=== PATIENT | male | born 1975 | race Caucasian/White ===

== ENCOUNTER 2024-04-19 21:16 | Inpatient (IN) | payer MEDICAID, SELFPAY ==
--- NOTE | 2024-04-19 | ECG_ITS ---
Test Reason : ams Blood Pressure : */* mmHG Vent. Rate : 97 BPM Atrial Rate : 97 BPM P-R Int : 116 ms QRS Dur : 92 ms QT Int : 390 ms P-R-T Axes : -10 -5 15 degrees QTcB Int : 495 ms Normal sinus rhythm Inferior infarct , age undetermined Cannot rule out Anterior infarct , age undetermined Abnormal ECG No previous ECGs available Referred By: Galina Jimenez Electronically Signed By: Jimi Gamez
--- NOTE | ~2024-04-19 | XR_ITS ---
CLINICAL HISTORY: abnormal lung sounds 1 view chest x-ray Comparison: None Findings: Portions of the exam are obscured by overlying material. No consolidation or effusion. Normal size heart. No acute fracture. IMPRESSION: 1. No acute findings. This document has been electronically signed by: Albert Danielle MD on 04/20/2024 06:09:25
--- NOTE | ~2024-04-19 | CT_ITS ---
CLINICAL HISTORY: trauma pt unable to hold still CT abdomen and pelvis without contrast Comparison: None Findings: Motion artifact present. The gallbladder and solid organs are unremarkable in appearance given the motion limitations. No radiopaque renal calculi are visualized. No hydronephrosis. No bowel obstruction, pneumoperitoneum, or pneumatosis. Pelvic contents unremarkable. No bladder wall thickening. The appendix is not confidently visualized on this exam. No acute fracture or dislocation injury identified. IMPRESSION: 1. Motion limited exam. No acute traumatic injury of the abdomen or pelvis visualized. This document has been electronically signed by: Malik Acuna MD on 04/19/2024 22:45:06
--- NOTE | ~2024-04-19 | CT_ITS ---
CLINICAL HISTORY: trauma pt unable to hold still CT chest without contrast Comparison: None Findings: Motion artifact present. The heart size is normal. The visualized thyroid and mediastinum are unremarkable. Minimal ground-glass opacities are identified at the right upper lobe with minimal to mild, patchy right basilar airspace opacities which appear somewhat nodular in configuration. There appear to be minimal nodular densities at the inferior aspect of the left lower lobe. No pneumothorax or pleural effusion. Evaluation of the lungs is degraded by motion artifact. No acute fracture injury identified. Evaluation of the ribs is limited by motion artifact. IMPRESSION: 1. Mildly motion limited exam. No acute traumatic injury of the chest identified. 2. Minimal right upper lobe ground-glass opacities present with minimal to mild, patchy right basilar airspace opacities which appears somewhat nodular in configuration. There also appear to be minimal nodular densities at the inferior aspect of the left lower lobe. These may represent sequela of infectious/inflammatory infiltrates, particularly at the bilateral lung bases. The right upper lobe ground-glass opacities may also represent sequela of infection or a subtle pulmonary contusion. This document has been electronically signed by: Malik cAuna MD on 04/19/2024 22:40:54
--- NOTE | ~2024-04-19 | US_ITS ---
CLINICAL HISTORY: arm swelling, drug use; eval dvt, abscess Venous duplex ultrasound bilateral upper extremity Comparison: None Findings: Accessible deep venous segments are fully compressible with normal Doppler color flow and spectral tracings. IMPRESSION: 1. Negative for bilateral upper extremity deep vein thrombosis. This document has been electronically signed by: Albert Danielle MD on 04/20/2024 17:52:14
--- NOTE | ~2024-04-19 | CT_ITS ---
CLINICAL HISTORY: trauma, pt unable to hold still CT cervical spine without contrast Comparison: None Findings: Mild motion artifact present. Nonspecific calcifications present within the bilateral ear soft tissues. No significant cervical spondylolisthesis identified. Multilevel degenerative disc disease/loss of intervertebral disc space height present at the cervical spine with extensive multilevel degenerative endplate changes. Multilevel bilateral degenerative facet arthropathy also present at the cervical spine. No acute fractures or dislocations. Impression: 1. No acute fracture or dislocation injury identified at the cervical spine. This document has been electronically signed by: Malik Acuna MD on 04/19/2024 22:18:59
--- NOTE | ~2024-04-19 | XR_ITS ---
CLINICAL HISTORY: right hand swelling 3 view right hand Comparison: None Findings: No acute fractures or dislocations identified. Evaluation of the digits is limited by finger flexion. No radiopaque foreign body. IMPRESSION: 1. Mildly limited examination related to finger flexion, limiting evaluation of the digits. No clear fracture or dislocation injury identified at the right hand. This document has been electronically signed by: Malik Acuna MD on 04/20/2024 01:22:30
--- NOTE | ~2024-04-19 | XR_ITS ---
EXAMINATION: XR CHEST CLINICAL INFORMATION: cough COMPARISON: Chest 04/12/2024 TECHNIQUE: Frontal view of the chest was obtained. FINDINGS: The lungs are hypoexpanded but clear. The heart size is enlarged. Pulmonary vascularity is normal. No gross bony abnormality seen. XR/XR chest 1V IMPRESSION: Hypoexpanded lungs without acute process. Mild cardiomegaly. Electronically signed by: Rubén Cardenas MD 04/24/2024 10:43 AM [facility] [place]
--- NOTE | ~2024-04-19 | CT_ITS ---
CLINICAL HISTORY: trauma CT head without contrast Comparison: None Findings: Mild motion artifact present. This mildly limits evaluation of the penning[place]-white matter differentiation on this study. No intracranial mass, midline shift, hydrocephalus, or acute hemorrhage. Visualized paranasal sinuses and mastoid air cells appear clear. No acute skull fracture. Impression: 1. Mildly motion limited exam. No acute intracranial abnormality or acute intracranial hemorrhage identified. This document has been electronically signed by: Malik Acuna MD on 04/19/2024 22:31:48
[2024-04-19 21:28] VITALS: O2SAT 86; BMI 32.5
[2024-04-19] MEDS: Haloperidol Lactate 5 MG/ML VIAL IVPUSH (21:30)
[2024-04-19] MEDS: LORazepam 2 MG/ML VIAL 4 MG IVPUSH (21:30)
[2024-04-19 21:37] LABS: MANUAL DIFF FLAG NO
[2024-04-19 21:39] VITALS: BP 129/108; PULSE 118; RESP 28; O2SAT 95
[2024-04-19 21:41] LABS: Basophils Absolute Auto 0.1 X10*3/uL (0.0-0.2); Basophils Percent Auto 0.2 % (0-2); Hematocrit 36.5 % (42.0-52.0); Hemoglobin 12.5 g/dl (14.0-18.0); Imm Gran Abs Auto 0.15 X10*3/uL (0.00-0.03); Imm Gran Pct Auto 0.7 % (0.0-0.4); Lymphocytes Absolute Auto 2.2 X10*3/uL (1.2-4.9); Lymphocytes Percent Auto 11.1 % (20-40); Mean Corpuscular HGB Conc 34.2 g/dl (31.0-36.0); Mean Corpuscular Hemoglobin 27.7 pg (27.0-33.0); Mean Corpuscular Volume 80.8 fL (80.0-98.0); Mean Platelet Volume 9.1 fL (9.4-12.4); Monocytes Absolute Auto 1.3 X10*3/uL (0.1-1.2); Monocytes Percent Auto 6.4 % (2-11); Neutrophils Absolute Auto 16.4 x10*3/uL (2.0-8.3); Neutrophils Percent Auto 81.6 % (45-73); Platelet Count 374 X10*3/uL (160-400); Red Blood Count 4.52 X10*6/uL (4.60-5.80); Red Cell Distribution Width 13.8 % (11.0-16.0); White Blood Count 20.1 X10*3/uL (4.8-10.8)
[2024-04-19 21:44] LABS: VBG Base Excess 5.3 mmol/L; VBG HCO3 30 mmol/L (22-26); VBG pCO2 48 mmHg; VBG pH 7.41 (7.32-7.43); VBG pO2 58 mmHg
[2024-04-19 21:47] LABS: Venous Blood Gas Refer to POC result
[2024-04-19 21:52] LABS: Ethanol 81 mg/dL
[2024-04-19 21:53] LABS: INTERNATIONAL NORM RATIO 1.3 (0.9-1.1); Prothrombin Time 14.8 SEC (10.9-12.4)
[2024-04-19 21:54] VITALS: TEMP 38.3
[2024-04-19 22:00] LABS: Lactic Acid 4.4 mmol/L (0.5-2.0)
[2024-04-19 22:02] LABS: Troponin-I High Sensitivity 21.5 ng/L (<3.5-35.0)
[2024-04-19] MEDS: cefTRIAXone sodium 2 GM VIAL IVPUSH (22:05)
[2024-04-19] MEDS: Lactated Ringers 1,000 ML 999 ML IV (22:06)
[2024-04-19] MEDS: Acetaminophen Supp 325 MG SUPP.RECT 975 MG PR (22:06)
[2024-04-19 22:10] LABS: Alanine Aminotransferase 68 U/L (0-40); Albumin Level 3.9 g/dL (3.5-5.0); Alkaline Phosphatase 114 U/L (39-117); Anion Gap 18 (12-20); Aspartate Amino Transferase 211 U/L (5-37); Bilirubin Total 0.9 mg/dL (0.0-1.0); Blood Urea Nitrogen 14 mg/dL (9-16); Calcium 8.4 mg/dL (8.4-10.2); Carbon Dioxide 26 mmol/L (22-29); Chloride 94 mmol/L (96-108); Creatinine Clr Calc Pharmacy 140.2; Estimated Glomerular Filt Rate > 60; Glucose Random 67 mg/dL (60-115); Sodium 135 mmol/L (135-145); Total Protein 7.9 g/dL (6.5-8.0)
[2024-04-19 22:18] LABS: Magnesium 2.2 mg/dL (1.6-2.6)
[2024-04-19 22:22] VITALS: PULSE 99; RESP 20; O2SAT 87
[2024-04-19 22:30] VITALS: BP 112/57; PULSE 95; RESP 19; O2SAT 95
[2024-04-19 22:41] LABS: Influenza A PCR NEGATIVE (Negative); Influenza B PCR NEGATIVE (Negative); Resp Syncy Virus RNA Qual PCR NEGATIVE (Negative); SARS COV2 PCR INHOUSE NEGATIVE (Negative)
[2024-04-19 22:45] LABS: Amphetamine Screen Urine POSITIVE (Not Detect); Barbiturates, Urine Not Detected (Not Detect); Benzodiazepines Screen Urine Not Detected (Not Detect); Buprenorphine Scr Positive (Not Detect); Cannabinoid Screen Urine Not Detected (Not Detect); Cocaine Screen Urine POSITIVE (Not Detect); Fentanyl, urine POSITIVE (Not Detect); Methadone Screen, Urine Not Detected (Not Detect); Opiate Screen Urine POSITIVE (Not Detect); Oxycodone Screen Urine Not Detected (Not Detect); Phencyclidine Screen Urine Not Detected (Not Detect)
--- NOTE | 2024-04-19 23:00 | PC.NURSE ---
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
--- NOTE | 2024-04-19 23:00 | PC.NURSE ---
this rn made arthur oliver and chargeback analyst aware of noted strider per oliver no new orders regarding strider chargeback analyst discussed different available options for treatment. per oliver no new orders
[2024-04-19] MEDS: Doxycycline Hyclate 100 MG in 0.9 % Sodium Chloride 250 ML 166.67 MG IV (23:03)
[2024-04-19 23:33] VITALS: BP 104/48; PULSE 99; RESP 20; O2SAT 96
[2024-04-19 23:36] LABS: Reflex Lactate? Lactic Acid Added
[2024-04-19] MEDS: Potassium Chloride/H20 10 MEQ/100 ML PIGGYBACK 100 MEQ IV (23:55)
[2024-04-19] MEDS: 0.9 % Sodium Chloride 1,000 ML 999 ML IV (23:56)
[2024-04-20] VITALS (10 sets, daily range): BP systolic 113–153; BP diastolic 51–71; PULSE 91–96; RESP 17–30; TEMP 36.7–38.2; O2SAT 92–97
[2024-04-20 00:29] LABS: ~Lactic Acid-LAB USE ONLY 1.9 mmol/L (0.5-2.0)
[2024-04-20] MEDS: Ketorolac Tromethamine 15 MG/ML VIAL IVPUSH (00:37)
[2024-04-20] MEDS: Potassium Chloride/H20 10 MEQ/100 ML PIGGYBACK 100 MEQ IV ×3 (00:47→03:48)
--- NOTE | 2024-04-20 00:50 | ED.AMS ---
HPI - Altered Mental Status General Chief Complaint: Altered Mental Status Stated Complaint: ETOH, cocaine use, diff breathing Time Seen by Provider: 04/19/24 21:39 Source: patient Limitations: other (Intoxication) History of Present Illness ED Provider: Galina Jimenez PA-C HPI narrative: 48-year-old male with a history of alcohol abuse, polysubstance abuse, presents with altered mental status. PD found the patient barefoot wearing shorts and a sweater in the parking lot of a variety sore. The patient relayed to PD that he has been unconscious for 2 days and that he just ?woke up?. He admits to relapsing on cocaine and alcohol. Shortly after EMS arrived, the patient became extremely agitated, they were not able to get stable vitals on the patient they are concerned that he may be hypoxic. History limited as the patient is combative and agitated at this time. Related Data Allergies Allergy/AdvReac Type Severity Reaction Status Date / Time No Known Allergies Allergy Verified 04/19/24 21:34 Review of Systems Review of Systems: Unable to obtain as the patient is altered Yes all other systems are reviewed and are negative [facility] Past Medical History Attestation statement: The following information was validated with the patient. Social History Social History Advance Directives: No Advance Directives Information Provided: No Physical Exam ED Vital Signs: Vital Signs - 24 hr 04/19/24 21:39 04/19/24 21:54 04/19/24 22:22 Temperature 100.9 F H Pulse Rate 118 H 99 Respiratory Rate 28 H 20 Blood Pressure 129/108 H Pulse Oximetry 95 87 L Oxygen Delivery Method Room Air Room Air Oxygen Flow Rate 04/19/24 22:30 04/19/24 23:33 04/20/24 00:31 Temperature 100.7 F H Pulse Rate 95 99 Respiratory Rate 19 20 Blood Pressure 112/57 L 104/48 L Pulse Oximetry 95 96 Oxygen Delivery Method Oxymask Oxymask Oxygen Flow Rate 2 2 04/20/24 03:39 Temperature Pulse Rate 92 Respiratory Rate 18 Blood Pressure 126/51 L Pulse Oximetry 95 Oxygen Delivery Method Room Air Oxygen Flow Rate BMI result Body Mass Index 32.5 Const Other: Awake Orientation/consciousness: oriented to person Resp Other: Tachypneic, unable to participate in a Respiratory exam due to his agitation Cardio Other: Normal peripheral perfusion Skin Other: Bruising and abrasions noted all over his body, 1 over the sternum that is prominent, 1 right lower flank. Neuro General: oriented to person, no focal motor deficits and CN's II-XI intact bilaterally Extrem Other: Moving all extremities independently, his upper extremities feel tense , but he is perfusing and warm Psych Other: Agitated, combative Course Reevaluation(s) Reevaluation #1: sepsis identified, the patient was tachycardic, he is febrile, we will be giving IV fluid therapy and starting empiric ceftriaxone, blood cultures and lactic already obtained Time: 21:31 Reevaluation #2: Evidence of pneumonia on CT scan, we will treat with doxy instead of azithromycin given QT prolongation..... Potassium low we will order 40 mEq IV Reevaluation #3: Patient is starting to become agitated again, we are concerned that he may be starting to withdraw from alcohol, we will be giving 260 mg of phenobarbital IM........ Repeating CPK at this time, giving additional IV fluid Additional Reevaluation(s): CPK improved Medications Administered Discontinued Medications Generic Name Dose Route Start Last Admin Trade Name Freq PRN Reason Stop Dose Admin Acetaminophen 975 mg 04/19/24 21:53 04/19/24 22:06 Acetaminophen Supp 325 Mg Supp.Rect OK 04/19/24 21:54 975 mg ONCE ONE Administration Ceftriaxone Sodium 2 gm 04/19/24 21:53 04/19/24 22:05 Ceftriaxone Sodium 2 Gm Vial IVPUSH 04/19/24 21:54 2 gm ONCE ONE Administration Haloperidol Lactate 5 mg 04/19/24 21:48 04/19/24 21:30 Haloperidol Lactate 5 Mg/Ml Vial IVPUSH 04/19/24 21:49 5 mg ONCE ONE Administration Lactated Ringer's 1,000 mls @ 999 mls/hr 04/19/24 22:00 04/20/24 00:01 Lr IV 04/19/24 23:00 Infused .Q1H1M MARIANN Infusion Doxycycline Hyclate 100 mg/ 250 mls @ 166.67 mls/hr 04/19/24 22:46 04/20/24 00:40 Sodium Chloride IV 04/20/24 00:15 Infused ONCE ONE Infusion Potassium Chloride 10 meq in 100 mls @ 100 mls/hr 04/19/24 23:00 04/20/24 03:48 Potassium Chloride/H20 IV 04/20/24 02:59 100 mls/hr Q1H MARIANN Administration Sodium Chloride 1,000 mls @ 999 mls/hr 04/19/24 23:00 04/20/24 03:07 Ns IV 04/20/24 00:00 Infused .Q1H1M MARIANN Infusion Sodium Chloride 1,000 mls @ 999 mls/hr 04/20/24 03:30 04/20/24 03:30 Ns IV 04/20/24 04:30 999 mls/hr .Q1H1M MARIANN Administration Ketorolac Tromethamine 15 mg 04/20/24 00:25 04/20/24 00:37 Ketorolac Tromethamine 15 Mg/Ml Vial IVPUSH 04/20/24 00:26 15 mg ONCE ONE Administration Lorazepam 4 mg 04/19/24 21:48 04/19/24 21:30 Lorazepam 2 Mg/Ml Vial IVPUSH 04/19/24 21:49 4 mg ONCE ONE Administration Phenobarbital Sodium 260 mg 04/20/24 03:23 04/20/24 03:27 Phenobarbital Sodium 130 Mg/Ml Vial IM 04/20/24 03:24 260 mg ONCE ONE Administration Medical Decision Making Medical Decision Making MDM Narrative: 48-year-old male with a history of alcohol abuse, polysubstance abuse, presents with altered mental status. PD found the patient barefoot wearing shorts and a sweater in the parking lot of a variety sore. The patient relayed to PD that he has been unconscious for 2 days and that he just ?woke up?. He admits to relapsing on cocaine and alcohol. Shortly after EMS arrived, the patient became extremely agitated, they were not able to get stable vitals on the patient they are concerned that he may be hypoxic. History limited as the patient is combative and agitated at this time. Problem: Polysubstance abuse, alcohol abuse History: Per PD and EMS I have considered the following differential diagnoses: Alcohol withdrawal, toxic ingestion, rhabdomyolysis, sepsis, intracranial hemorrhage, cervical spine injury, intra-abdominal trauma, intrathoracic trauma, pneumonia Plan: The patient is certainly appears intoxicated, he admits to bingeing on alcohol and cocaine, alcohol withdrawal is certainly on the differential, we will place a CIWA scale. Once we established IV access, we will be medicating with 2 mg of Ativan, so we can proceed with the his initial assessment. The patient was very hot to touch, we obtained a rectal temp he is febrile, we are concerned for sepsis, we will be giving IV fluid therapy, starting empiric ceftriaxone, obtaining blood cultures and lactic acid. We will also screen a urinalysis, chest x-ray and viral panel. I am also worried for rhabdomyolysis, the patient states he has been unconscious for 2 days, presumably down on the ground, potentially outside given all the bruising and abrasions we are noting, we will add on a CPK. The patient will be conley scanned, unclear if he sustained a considerable trauma, obtaining imaging of the brain, cervical spine chest and abdomen. Again as I already stated, we are concerned for toxic ingestion, we will be obtaining a drug screen and ethanol. I have independently reviewed the following tests: Labs: Leukocytosis noted with left shift, not anemic, potassium low at 3, 1st lactic acid 4.4, the 2nd is 1.9, transaminitis noted, CPK 5232, repeat CPK 2664, 1st troponin 21.5, viral panel negative, U tox positive for opiates, buprenorphine, fentanyl, amphetamine, cocaine ethanol 81 EKG: Normal sinus rhythm, rate of 97, evidence of old infarct in inferior leads, QTC 495 CT brain: indings: Mild motion artifact present. This mildly limits evaluation of the penning[place]-white matter differentiation on this study. No intracranial mass, midline shift, hydrocephalus, or acute hemorrhage. Visualized paranasal sinuses and mastoid air cells appear clear. No acute skull fracture. Impression: 1. Mildly motion limited exam. No acute intracranial abnormality or acute intracranial hemorrhage identified. This document has been electronically signed by: Malik Acuna MD on 04/19/2024 22:31:48 CT cervical spine: Findings: Mild motion artifact present. Nonspecific calcifications present within the bilateral ear soft tissues. No significant cervical spondylolisthesis identified. Multilevel degenerative disc disease/loss of intervertebral disc space height present at the cervical spine with extensive multilevel degenerative endplate changes. Multilevel bilateral degenerative facet arthropathy also present at the cervical spine. No acute fractures or dislocations. Impression: 1. No acute fracture or dislocation injury identified at the cervical spine. This document has been electronically signed by: Malik Acuna MD on 04/19/2024 22:18:59 CT chest: MPRESSION: 1. Mildly motion limited exam. No acute traumatic injury of the chest identified. 2. Minimal right upper lobe ground-glass opacities present with minimal to mild, patchy right basilar airspace opacities which appears somewhat nodular in configuration. There also appear to be minimal nodular densities at the inferior aspect of the left lower lobe. These may represent sequela of infectious/inflammatory infiltrates, particularly at the bilateral lung bases. The right upper lobe ground-glass opacities may also represent sequela of infection or a subtle pulmonary contusion. This document has been electronically signed by: Malik Acuna MD on 04/19/2024 22:40:54 CT abdomen and pelvis:IMPRESSION: 1. Motion limited exam. No acute traumatic injury of the abdomen or pelvis visualized. X-ray right hand:IMPRESSION: 1. Mildly limited examination related to finger flexion, limiting evaluation of the digits. No clear fracture or dislocation injury identified at the right hand. Lab Data 04/19/24 21:31 04/19/24 21:31 Labs: Lab Results 04/19/24 04/19/24 04/19/24 Range/Units 21:31 21:40 22:01 WBC 20.1 H (4.8-10.8) X10*3/uL RBC 4.52 L (4.60-5.80) X10*6/uL Hgb 12.5 L (14.0-18.0) g/dl Hct 36.5 L (42.0-52.0) % MCV 80.8 (80.0-98.0) fL MCH 27.7 (27.0-33.0) pg MCHC 34.2 (31.0-36.0) g/dl RDW 13.8 (11.0-16.0) % Plt Count 374 (160-400) X10*3/uL MPV 9.1 L (9.4-12.4) fL Immature Gran % (Auto) 0.7 H (0.0-0.4) % Neut % (Auto) 81.6 H (45-73) % Lymph % (Auto) 11.1 L (20-40) % [place] % (Auto) 6.4 (2-11) % Eos % (Auto) 0.0 (0-4) % Baso % (Auto) 0.2 (0-2) % Lymph # (Auto) 2.2 (1.2-4.9) X10*3/uL [place] # (Auto) 1.3 H (0.1-1.2) X10*3/uL Eos # (Auto) 0.0 (0.0-0.4) X10*3/uL Baso # (Auto) 0.1 (0.0-0.2) X10*3/uL Abs Immat Gran (auto) 0.15 H (0.00-0.03) X10*3/uL Absolute Neuts (auto) 16.4 H (2.0-8.3) x10*3/uL Absolute Nucleated RBC 0.000 (0.0-0.012) X10*3/uL Nucleated RBC % (auto) 0.0 (0.0-0.2) /100WBC PT 14.8 H (10.9-12.4) SEC INR 1.3 H (0.9-1.1) VBG pH 7.41 (7.32-7.43) VBG pCO2 48 mmHg VBG pO2 58 mmHg VBG HCO3 30 H (22-26) mmol/L VBG O2 Saturation 86.0 % VBG Base Excess 5.3 mmol/L Sodium 135 (135-145) mmol/L Potassium 3.0 L (3.3-5.1) mmol/L Chloride 94 L (96-108) mmol/L Carbon Dioxide 26 (22-29) mmol/L Anion Gap 18 (12-20) BUN 14 (9-16) mg/dL Creatinine 0.75 (0.5-1.4) mg/dL Estim Creat Clear Calc 140.2 Estimated GFR > 60 Random Glucose 67 (60-115) mg/dL Lactic Acid 4.4 H* (0.5-2.0) mmol/L Lactic Acid F/U @ 2Hr (0.5-2.0) mmol/L Calcium 8.4 (8.4-10.2) mg/dL Magnesium 2.2 (1.6-2.6) mg/dL Total Bilirubin 0.9 (0.0-1.0) mg/dL AST 211 H (5-37) U/L ALT 68 H (0-40) U/L Alkaline Phosphatase 114 (39-117) U/L Total Creatine Kinase 5232 H (38-174) U/L Troponin I High Sens 21.5 (<3.5-35.0) ng/L Total Protein 7.9 (6.5-8.0) g/dL Albumin 3.9 (3.5-5.0) g/dL Urine Opiates Screen (Not Detect) Ur Buprenorphine Scrn (Not Detect) ng/mL Ur Oxycodone Screen (Not Detect) ng/mL Urine Methadone Screen (Not Detect) ng/mL Urine Fentanyl Screen (Not Detect) Ur Barbiturates Screen (Not Detect) Ur Phencyclidine Scrn (Not Detect) Ur Amphetamines Screen (Not Detect) U Benzodiazepines Scrn (Not Detect) Urine Cocaine Screen (Not Detect) U Marijuana (THC) Screen (Not Detect) Ethyl Alcohol 81 mg/dL Influenza Type A (PCR) NEGATIVE (Negative) Influenza Type B (PCR) NEGATIVE (Negative) RSV RNA Qual (PCR) NEGATIVE (Negative) SARS-CoV-2 RNA (RT-PCR) NEGATIVE (Negative) 04/19/24 04/20/24 04/20/24 Range/Units 22:27 00:12 03:34 WBC (4.8-10.8) X10*3/uL RBC (4.60-5.80) X10*6/uL Hgb (14.0-18.0) g/dl Hct (42.0-52.0) % MCV (80.0-98.0) fL MCH (27.0-33.0) pg MCHC (31.0-36.0) g/dl RDW (11.0-16.0) % Plt Count (160-400) X10*3/uL MPV (9.4-12.4) fL Immature Gran % (Auto) (0.0-0.4) % Neut % (Auto) (45-73) % Lymph % (Auto) (20-40) % [place] % (Auto) (2-11) % Eos % (Auto) (0-4) % Baso % (Auto) (0-2) % Lymph # (Auto) (1.2-4.9) X10*3/uL [place] # (Auto) (0.1-1.2) X10*3/uL Eos # (Auto) (0.0-0.4) X10*3/uL Baso # (Auto) (0.0-0.2) X10*3/uL Abs Immat Gran (auto) (0.00-0.03) X10*3/uL Absolute Neuts (auto) (2.0-8.3) x10*3/uL Absolute Nucleated RBC (0.0-0.012) X10*3/uL Nucleated RBC % (auto) (0.0-0.2) /100WBC PT (10.9-12.4) SEC INR (0.9-1.1) VBG pH (7.32-7.43) VBG pCO2 mmHg VBG pO2 mmHg VBG HCO3 (22-26) mmol/L VBG O2 Saturation % VBG Base Excess mmol/L Sodium (135-145) mmol/L Potassium (3.3-5.1) mmol/L Chloride (96-108) mmol/L Carbon Dioxide (22-29) mmol/L Anion Gap (12-20) BUN (9-16) mg/dL Creatinine (0.5-1.4) mg/dL Estim Creat Clear Calc Estimated GFR Random Glucose (60-115) mg/dL Lactic Acid (0.5-2.0) mmol/L Lactic Acid F/U @ 2Hr 1.9 (0.5-2.0) mmol/L Calcium (8.4-10.2) mg/dL Magnesium (1.6-2.6) mg/dL Total Bilirubin (0.0-1.0) mg/dL AST (5-37) U/L ALT (0-40) U/L Alkaline Phosphatase (39-117) U/L Total Creatine Kinase 2664 H (38-174) U/L Troponin I High Sens (<3.5-35.0) ng/L Total Protein (6.5-8.0) g/dL Albumin (3.5-5.0) g/dL Urine Opiates Screen POSITIVE H (Not Detect) Ur Buprenorphine Scrn Positive H (Not Detect) ng/mL Ur Oxycodone Screen Not Detected (Not Detect) ng/mL Urine Methadone Screen Not Detected (Not Detect) ng/mL Urine Fentanyl Screen POSITIVE H (Not Detect) Ur Barbiturates Screen Not Detected (Not Detect) Ur Phencyclidine Scrn Not Detected (Not Detect) Ur Amphetamines Screen POSITIVE H (Not Detect) U Benzodiazepines Scrn Not Detected (Not Detect) Urine Cocaine Screen POSITIVE H (Not Detect) U Marijuana (THC) Screen Not Detected (Not Detect) Ethyl Alcohol mg/dL Influenza Type A (PCR) (Negative) Influenza Type B (PCR) (Negative) RSV RNA Qual (PCR) (Negative) SARS-CoV-2 RNA (RT-PCR) (Negative) Procedures Procedure Narrative Procedure Narrative: Ultrasound-guided IV 18 gauge 1-3/4 inch bilateral IVs placed in either extremity, each with adequate blood return, each flushes well each secured with Tegaderm Critical Care Time Critical Care Time Critical Care Time: Yes Total Critical Care Time: 30 Attestation: I Galina Jimenez PA-C have personally performed critical care time in the way of 30 minutes, not including procedures and line placement Discharge Plan Discharge Clinical Impression: Polysubstance abuse, Sepsis, Alcohol withdrawal, Rhabdomyolysis, Pneumonia, Acute hypokalemia Patient Disposition: Admitted As Inpatient Print Language: [place]
--- OUTSIDE RECORDS SUMMARY | 2024-04-20 01:31 | XMS_ITS | Patient Health Record ---
Author Organization [facility], Address [address] [place] [address] Care Team Providers Care Teacher Of The Handicapped Name Role Phone [facility] Roy[facility], [facility] Unavaila ble Unavailable Denton Keller Unavailable Unavailable Allergies No Known Allergies Reason For Referral Reason Umbilical Hernia Not Reducible with Significant Abdominal Distension, Gastroparesis - Referral to GI Diagnosis 1 Umbilical hernia wit hout obstruction or gangrene (K42.9) Referring Provider First Name Denton Referring Provider Last Name Referred Provider Specialty Gastroentero logy General Notes [facility], [address], [place] [address] [facility], P [phone] F [phone] Referral Priority Routine Medications Medication SIG (Take, Route, Fr equency, Duration) Notes Start Date End Date Status SEROquel 200 MG 1 tablet Orally Once a day Active Lexapro 20 MG 1 tablet Orally Once a day Active Suboxone Active cloNIDine HCl Active Caplyta Active Glycerin (Laxative) Active Vyvanse Active Social History Tobacco Use: Social History Observation Description Date Details (start date - stop date) Former Smoker NA - NA Sex Assigned At : Social History Observation Description Sex Assigned At Male Tobacco Use/Smoking Question Answer Notes Are you a former smoker Alcohol Screen (Audit-C) Question Answer Notes Did you have a drink containing alcohol in the p ast year? Yes Tobacco use other than smoking: Question Answer Notes Are you an other tobacco user? Yes Problems Problem Type SNOMED Code ICD Code Onset Dates Problem Status W/U Status Risk Notes Problem Exposure to communicable disease (465403196) Contact with and (suspected) exposure to other viral communicable diseases (Z20.828) Active confirmed Problem Constipation (39013894) Constipation (K59.00) Active confirmed Vital Signs Heart Rate 90 /min 09/04/2023 Temperature 98.2 degrees Fahrenheit 09/04/2023 Respiratory Rate 18 /min 09/04/2023 Oximetry 98 % 09/04/2023 Blood pressure diastolic 88 mm Hg 09/04/2023 Height 67 in 09/04/2023 Blood pressure systolic 130 mm Hg 09/04/2023 Weight 199.0 lbs 09/04/2023 BMI 31.16 kg/m2 09/04/2023 Encounters Encounter Location Date Provider Diagnosis [facility] [place] [address] [place] [address] 09/04/2023 Denton Keller Constipation K59.00 and Umbilical hernia without obstruction or gangrene K42.9 Assessments Encounter Date Diagnosis (ICD Code) Assessment Notes Treatment Notes Treatment Clinical Notes Section Notes 09/04/2023 Umbilical hernia without obstruction or gangrene (ICD-10 - K42.9) Umbilical hernia Visible with valsalva maneuver not reducible Referral to GI for evaluation/pote ntial surgical correction Follow up with Gi 09/04/2023 Constipation (ICD-10 - K59.00) Constipation with bloating Likely related to opiod (methadone) use Has tried OTC medications including suppository, stool softeners, bowel stimulants with minimal improvement Tx with linzess Due to bloating, sending for xray to rule out bowel obstruction Follow up if limited improvement 09/04/2023 Other During this encounter, I dedicated 22 minutes to direct ktvs-wj-pbfa and kas-otmf-vy-face time with the patient. I invested time in preparatory tasks, including reviewing the patient's history and checking electronic pharmacy inputs for available medications. I conducted a thorough examination and provided counselling and education to the patient. I managed medication, test, and procedure orders. I ensured accurate documentation of all clinical information in the electronic medical record. Plan Of Treatment Pending Test Test Name Order Date Chest X-ray: 2 views (PA and Lateral) SARS - CoV - 2 Antigen 07/10/2021 Cepheid 4 Plex 01/29/2022 Insurance Providers Payer Name Payer Address Payer Phone Subscriber Number Group Number Insured Name Patient Relationship to Insured Coverage Start Date Coverage End Date Medicaid of [place] [address] [place] [address] [id number] Vicalda Abiodun Self - patient is the insured Medical (General) History Medical History History ICD Code asthma: No Cancer: No DEPRESSION: Yes Diabetes: No high blood pressure: No kidney disease: No thyroid disease: No Have you bloodwork done in the past 12 m [facility]?: Yes Have you had a physical in the past 12 m [facility]?: Yes Surgical History: Left shoulder right bi ceps left hip
--- OUTSIDE RECORDS SUMMARY | 2024-04-20 01:32 | XMS_ITS ---
Author Organization [facility] [place], Address [address] [place] [address] Care Team Providers Care Territory Account Manager Name Role Phone Denton Keller Unavailable Unavailable Allergies No Known Allergies Reason For Referral Reason Umbilical Hernia Not Reducible with Significant Abdominal Distension, Gastroparesis - Referral to GI Diagnosis 1 Umbilical hernia wit hout obstruction or gangrene (K42.9) Referring Provider First Name Denton Referring Provider Last Name Referred Provider Specialty Gastroentero logy General Notes [facility], [address], [place] [address] [facility], P [phone] F [phone] Referral Priority Routine REASON FOR VISIT Stomach pain, VOMOTING Medications Medication SIG (Take, Route, Fr equency, Duration) Notes Start Date End Date Status SEROquel 200 MG 1 tablet Orally Once a day Active Lexapro 20 MG 1 tablet Orally Once a day Active linaCLOtide 145 MCG 1 capsule at least 3 0 minutes before the first meal of the day on an empty stomach Orally Once a day for 30 days 09/04/2023 10/04/2023 Active Suboxone Active cloNIDine HCl Active Caplyta [...] Problem Status W/U Status Risk Notes Problem Constipation (30454970) Constipation (K59.00) Active confirmed Vital Signs Temperature 98.2 degrees Fahrenheit 09/04/19 24 Heart Rate 90 /min 09/04/2023 Blood pressure systolic 130 mm Hg 09/04/19 24 Blood pressure diastolic 88 mm Hg 024 Height 67 in 09/04/2023 Weight 199.0 lbs 09/04/2023 BMI 31.16 kg/m2 09/04/2023 Respiratory Rate 18 /min 09/04/2023 Oximetry 98 % 09/04/2023 Encounters Encounter Location Date Provider Diagnosis [facility] [address] [address] 09/04/2023 Denton Keller Constipation K59.00 and Umbilical hernia without obstruction or gangrene K42.9 Assessments Encounter Date Diagnosis (ICD Code) Assessment Notes Treatment Notes Treatment Clinical Notes Section Notes 09/04/2023 Constipation (ICD-10 - K59.00) Constipation with bloating Likely related to opiod (methadone) use Has tried OTC medications including suppository, stool softeners, bowel stimulants with minimal improvement Tx with linzess Due to bloating, sending for xray to rule out bowel obstruction Follow up if limited improvement 09/04/2023 Umbilical hernia without obstruction or gangrene (ICD-10 - K42.9) Umbilical hernia Visible with valsalva maneuver not reducible Referral to GI for evaluation/pote ntial surgical correction Follow up with Gi 09/04/2023 Other During this encounter, I dedicated 22 minutes to direct nwce-uh-jesw and qkz-pcmw-vg-face time with the patient. I invested time in preparatory tasks, including reviewing the patient's history and checking electronic pharmacy inputs for available medications. I conducted a thorough examination and provided counselling and education to the patient. I managed medication, test, and procedure orders. I ensured accurate documentation of all clinical information in the electronic medical record. Plan Of Treatment Medication Medication Name Sig Start Date Stop Date Notes linaCLOtide 145 MCG 1 capsule at least 3 0 minutes before the first meal of the day on an empty stomach Orally Once a day for 30 days 09/04/2023 10/04/2023 Treatment Notes Assessment Notes Constipation Constipation with bloating Likely related to opiod (methadone) use Has tried OTC medications including suppository, stool softeners, bowel stimulants with minimal improvement Tx with linzess Due to bloating, sending for xray to rule out bowel obstruction Follow up if limited improvement Umbilical hernia without obs truction or gangrene Umbilical hernia Visible with valsalva maneuver not reducible Referral to GI for evaluation/potential surgical correction Follow up with Gi Referrals Referral Date Details 09/04/2023 09/04/2023, Umbilica l Hernia Not Reducible with Significant Abdominal Distension, Gastroparesis - Referral to GI Next Appt Details Follow Up: 1 Week, Reason: x ray results, constipation follow up Progress Notes * [place] DIAMONDMisaOB:1975 ( 48 yo M)Acc No.[id number]:09/04/2023 Progress Notes Patient:?Abiodun DIAMOND Provider:?Denton Keller APRN :1975???Age:48 Y???Sex:Male Pieter e:09/04/2023 Address:[address] [place] [address] Subjective: * Chief Complaints: * ???1. Stomach pain, VOMOTING . * HPI: ???Asthma:? Having sharp abdominal pain with regurgitation Abdominal bloating after meals? Used glycerin suppository about 5 times daily Reports significant constipatoin with suboxone Has been to hospital several times in past few weeks/months Colonoscopy about 1 year ago that was normal - normal Reports going 1 month without pooping in recent past Last CT of abdomen done a few months ago Abdominal hernia x 1 to 2 years. ?Asthma Form?Coughing, wheezing, shortness of breath or tightness in the chest during the day?This year ???Depression Screening:?PHQ-9?Little interest or pleasure in doing things?Not at all ?Trouble falling or staying asleep, or sleeping too much?Not at all ?Poor appetite or overeating?More than half the days ?Trouble concentrating on things, such as reading the newspaper or watching television?Not at all ?Moving or speaking so slowly that other people could have noticed; or the opposite, being so fidgety or restless that you have been moving around a lot more than usual?Not at all ?Thoughts that you would be better off or of hurting yourself in some way?Not at all ?Interpretation?Minimal Depression score 0-4, no action ???Comprehensive health Assessment:?[facility] Comprehensive Health Assessment?Race?Martial Status?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 Sex?Male * ROS:?General/Constitutional:?Fever?Yes.? * Medical History:?asthma: No, Cancer: No, DEPRESSION: Yes, Diabetes: No, high blood pressure: No, kidney disease: No, thyroid disease: No, Have you bloodwork done in the past 12 months?: Yes, Have you had a physical in the past 12 months?: Yes, Surgical History: Left shoulder right biceps left hip. * Family History:?Father: Reed richey,High Blood Pressure.?Mother: Alive.?Paternal Grand Father: Alive.?Paternal Grand Mother: .?Maternal Grand Father: .?Maternal Grand Mother: .?Siblings: Alive.?Children: Alive.? * Social History:?Tobacco Use:?Tobacco Use/Smoking?Are you a?former smoker ?Tobacco use other than smoking?Are you an other tobacco user??Yes ???Drugs/Alcohol:?Alcohol Screen (Audit-C)?Did you have a drink containing alcohol in the past year??Yes * Medications:?Taking Glycerin (Laxative) , Taking cloNIDine HCl , Taking Caplyta , Taking Vyvanse , Taking SEROquel 200 MG Tablet 1 tablet Orally Once a day , Taking Lexapro 20 MG Tablet 1 tablet Orally Once a day , Taking Suboxone , Discontinued KlonoPIN , Medication List reviewed and reconciled with the patient * Allergies:?N.K.D.A. Objective: * Vitals:?Temp: 98.2 F, HR: 90 /min, BP: 130/88 mm Hg, Ht: 67 in, Wt: 199.0 lbs, BMI: 31.16 Index, RR: 18, Oxygen sat %: 98 %. * Examination: ???General Examination: ?GENERAL APPEARANCE:?Alert, well-developed, well-nourished, non-toxic appearing, in no acute distress.?ABDOMEN:?Umbilical hernia above umbilicus appx 4 inch diameter ?, bowel sounds present, distended, without ascites, no rebound tenderness, no organomegaly,?.? Assessment: * Assessment: 1.?Umbilical hernia without obstruction or gangrene - K42.9???2.?Constipation - K59.00 (Primary)??? Plan: * Treatment: 2.?Umbilical hernia without obstruction or gangrene? Notes: Umbilical hernia Visible with valsalva maneuver not reducible Referral to GI for evaluation/potential surgical correction Follow up with Gi? Referral To:Gastroenterology ?Reason:Umbilical Hernia Not Reducible with Significant Abdominal Distension, Gastroparesis - Referral to GI 3.?Others? Clinical Notes: During this encounter, I dedicated 22 minutes to direct kihx-sw-lmra and gis-tmpz-mm-face time with the patient. I invested time in preparatory tasks, including reviewing the patient's history and checking electronic pharmacy inputs for available medications. I conducted a thorough examination and provided counselling and education to the patient. I managed medication, test, and procedure orders. I ensured accurate documentation of all clinical information in the electronic medical record.?? * Procedure Codes:?96012 BRIEF EMOTIONAL/BEHAV ASSMT * Follow Up:?1 Week (Reason: x ray results, constipation follow up) Care Plan: * Problems:? * Billing Information: * Visit Code:? 89007 Office Visit, New Patient. Modifiers: 25 * Procedure Codes:? 82476 BRIEF EMOTIONAL/BEHAV ASSMT. Care Plan Details* * Sign off status: Completed true * Provider:Rosalino Keller APRN Date:? 024 Generated for Raul méndez/Yannick/eTransmitting on:?04/20/2024 01:31 AM EST History and Physical Notes * HPI (History of Present Illness) Category Sub-Category Detail Notes Category Not es Asthma Asthma Form Coughing, wheezi ng, shortness of breath or tightness in the chest during the day: This year Depression Screening PHQ-9 Little inte rest or pleasure in doing things: Not at all Trouble falling or staying asleep, or sl eeping too much: Not at all Poor appetite or overeating: More than h fci the days Trouble concentrating on thi ngs, such as reading the newspaper or watching television: Not at all Moving or speaking so slowly that other people could have noticed; or the opposite, being so fidgety or restless that you have been moving around a lot more than usual: Not at all Thoughts that you would be b jp off or of hurting yourself in some way: Not at all Interpretation: Minimal Depression score 0-4, no action Comprehensive health Assessment [facility] prehensive Health Assessment Race: Martial Status: 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 Language Preference: Luxembourger Drug Abuse: Prior Use Sex: Male Examination Category Sub-Category Detail Notes Category Not es General Examination GENERAL APPEARANCE: Alert, w ell-developed, well-nourished, non-toxic appearing, in no acute distress ABDOMEN: Umbilical hernia abo ve umbilicus appx 4 inch diameter , bowel sounds present, distended, without ascites, no rebound tenderness, no organomegaly, Consultation Request Notes Referral Date Referring Provider Referred Provider Not es 09/04/2023 Denton Keller , Umbilical Herni a Not Reducible with Significant Abdominal Distension, Gastroparesis - Referral to GI
--- OUTSIDE RECORDS SUMMARY | 2024-04-20 01:32 | XMS_ITS ---
Author Organization [facility] [place], Address [address] [place] [address] Care Team Providers Care Sas Programmer Analyst Name Role Phone [facility] Unavaila ble Unavailable REASON FOR VISIT 1 week f/u Social History Sex Assigned At : Social History Observation Description Sex Assigned At Male Encounters Encounter Location Date Provider Diagnosis [facility]gent [facility] [facility] [place] [address] 09/11/2023 [facility] Swapnilkaiden Plan Of Treatment No Information Progress Notes * Mari DIAMONDOB:1975 ( 48 yo M)Acc No.[id number]:09/11/2023 Progress Note Patient:?Abiodun DIAMOND Provider:?[facility] davenport :1975???Age:48 Y???Sex:Male Pieter e:09/11/2023 Address:[address] [place] [id number] Subjective: * Chief Complaints: * ???1. 1 week f/u. * Medical History:? Objective: * Vitals:? Assessment: Plan: * Treatment: Care Plan: * Problems:? * Billing Information: * Visit Code:? * Procedure Codes:? Care Plan Details* * Electronic signature of [facility] Amor Roya on 04/20/2024 at 01:31 AM EST Sign off status: Pending * Provider:?[facility] Jak Chinchilla Date:?09/11/2023 Generated for Raul méndez/Yannick/eTransmitting on:?04/20/2024 01:31 AM EST
--- OUTSIDE RECORDS SUMMARY | 2024-04-20 01:32 | XMS_ITS | Patient Health Record ---
Author Organization [facility] ([facility]) Address [address] [place] [address] Care Team Providers Care Merchandise For Resale Purchasing Agent Name Role Phone KENYETTA DOWNS Unavailable [phone] Mekhi Teresaald Unavailable [phone] Reason For Referral No Information Medications Medication SIG (Take, Route, Fr equency, Duration) Notes Start Date End Date Status Adderall XR 20 MG 1 capsule in the mor cruz Orally twice a day Active Neurontin 600 MG 1 tablet Orally Thre e times a day Active cloNIDine HCl 0.3 MG 1 tablet Orally Once a day Active Suboxone 8-2 MG 2 Once a day A ctive Social History Tobacco Use: Social History Observation Description Date Details (start date - stop date) Never Smoker NA - NA Tobacco Use/Smoking Question Answer Notes Are you a nonsmoker Problems Problem Type SNOMED Code ICD Code Onset Dates Problem Status W/U Status Risk Notes Problem 418596184 Myofascial pain (M79.1) Active confirmed Problem 26140730 Cervical radiculopathy (M54.12) Active confirmed Problem 58289331 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 confirmed Problem 249729454 Spondylosis of cervical region without myelopathy or radiculopathy (M47.812) Active confirmed Plan Of Treatment No Information Insurance Providers Payer Name Payer Address Payer Phone Subscriber Number Group Number Insured Name Patient Relationship to Insured Coverage Start Date Coverage End Date [employer] [address] [place] [address] [phone] [id number] Abiodun Edwards Self - patient is the insured Medical (General) History Medical History History ICD Code Gastroparesis Lyme disease Depression Anxiety PTSD Surgical History Surgery Date(Month/Year) Left hip surgery Left shoulder SLAP repair
--- NOTE | 2024-04-20 02:09 | PC.NURSE ---
pt medicated according to teagan pt boosted up in bed
[2024-04-20] MEDS: PHENobarbitaL sodium 130 MG/ML VIAL 260 MG IM (03:27)
[2024-04-20] MEDS: 0.9 % Sodium Chloride 1,000 ML 999 ML IV (03:30)
--- NOTE | 2024-04-20 03:39 | PC.NURSE ---
pt noted to have more frequent spastic movements. pt legs noted to be tremulous, diaphoresis noted no pt forehead and neck. barn manager and arthur oliver made aware pt medicated according to mar repeat cpk obtained
--- NOTE | 2024-04-20 04:21 | PC.NURSE ---
this rn and oliver at bedside. no diaphoresis noted at this time. per oliver pt pending admission at this time
[2024-04-20 05:00] LABS: Troponin-I High Sensitivity 24.2 ng/L (<3.5-35.0)
--- NOTE | 2024-04-20 05:11 | P.HPHOSP_ITS ---
History of Present Illness Date of Service: 04/20/24 Chief Complaint: Altered mentation This is a 48-year-old male with pertinent history of polysubstance use disorder, alcohol use disorder, mood disorder who was brought to the emergency department for evaluation of altered mentation. Unable to obtain history from the patient. Patient is sedated in the ER and non conversational. Eye opening to painful stimulus present. Patient apparently was found in a parking lot where he had been altered/unconscious for 2 days. He was brought in the ER by PD. He admitted to relapsing on cocaine and alcohol area. Patient was combative in the ER and was sedated. He was found to be septic and imaging concerning for pneumonia. Patient also requiring supplemental oxygen in the emergency department. Unable to obtain review of systems. Review of Systems 2 Review of Systems: Yes Unobtainable due to mental status [facility] Medical History (Updated 04/20/24 @ 05:18 by Shakira Gannon MD) Mood disorder Pertinent family history: No family history of early CAD Social History Advance Directives: No Advance Directives Information Provided: No Meds Allergies Allergy/AdvReac Type Severity Reaction Status Date / Time No Known Allergies Allergy Verified 04/19/24 21:34 Active Medications: Current Medications Lorazepam (Lorazepam 2 Mg/Ml Vial) 2 mg IVPUSH ONCE ONE Stop: 04/20/24 05:08 Physical Exam 2 Vital Signs and Narrative: Vital Signs: Last Vital Signs Temp 100.7 F H 04/20/24 00:31 Pulse 92 04/20/24 03:39 Resp 18 04/20/24 03:39 BP 126/51 L 04/20/24 03:39 Pulse Ox 95 04/20/24 03:39 O2 Del Method Room Air 04/20/24 03:39 O2 Flow Rate 2 04/19/24 23:33 BMI result Body Mass Index 32.5 Middle-aged male lying in bed on supplemental oxygen Neck supple, no JVD Regular rate and rhythm, S1-S2 heard Inspiratory crackles present Abdomen soft nontender, no guarding, no rigidity Patient is sedated and only eye opening to painful stimulus, non conversational No pedal edema Results Labs 04/19/24 21:31 04/19/24 21:31 Labs: Laboratory Results - last 24 hr 04/19/24 04/19/24 04/19/24 21:31 21:40 22:01 MCV 80.8 MCH 27.7 MCHC 34.2 RDW 13.8 Plt Count 374 MPV 9.1 L Immature Gran % (Auto) 0.7 H Neut % (Auto) 81.6 H Lymph % (Auto) 11.1 L [place] % (Auto) 6.4 Eos % (Auto) 0.0 Baso % (Auto) 0.2 Lymph # (Auto) 2.2 [place] # (Auto) 1.3 H Eos # (Auto) 0.0 Baso # (Auto) 0.1 Abs Immat Gran (auto) 0.15 H Absolute Neuts (auto) 16.4 H Absolute Nucleated RBC 0.000 Nucleated RBC % (auto) 0.0 PT 14.8 H INR 1.3 H VBG pH 7.41 VBG pCO2 48 VBG pO2 58 VBG HCO3 30 H VBG O2 Saturation 86.0 VBG Base Excess 5.3 Anion Gap 18 Estim Creat Clear Calc 140.2 Estimated GFR > 60 Random Glucose 67 Lactic Acid 4.4 H* Lactic Acid F/U @ 2Hr Calcium 8.4 Magnesium 2.2 Total Bilirubin 0.9 AST 211 H ALT 68 H Alkaline Phosphatase 114 Total Creatine Kinase 5232 H Total Protein 7.9 Albumin 3.9 Urine Opiates Screen Ur Buprenorphine Scrn Ur Oxycodone Screen Urine Methadone Screen Urine Fentanyl Screen Ur Barbiturates Screen Ur Phencyclidine Scrn Ur Amphetamines Screen U Benzodiazepines Scrn Urine Cocaine Screen U Marijuana (THC) Screen Ethyl Alcohol 81 Influenza Type A (PCR) NEGATIVE Influenza Type B (PCR) NEGATIVE RSV RNA Qual (PCR) NEGATIVE SARS-CoV-2 RNA (RT-PCR) NEGATIVE 04/19/24 04/20/24 04/20/24 22:27 00:12 03:34 MCV MCH MCHC RDW Plt Count MPV Immature Gran % (Auto) Neut % (Auto) Lymph % (Auto) [place] % (Auto) Eos % (Auto) Baso % (Auto) Lymph # (Auto) [place] # (Auto) Eos # (Auto) Baso # (Auto) Abs Immat Gran (auto) Absolute Neuts (auto) Absolute Nucleated RBC Nucleated RBC % (auto) PT INR VBG pH VBG pCO2 VBG pO2 VBG HCO3 VBG O2 Saturation VBG Base Excess Anion Gap Estim Creat Clear Calc Estimated GFR Random Glucose Lactic Acid Lactic Acid F/U @ 2Hr 1.9 Calcium Magnesium Total Bilirubin AST ALT Alkaline Phosphatase Total Creatine Kinase 2664 H Total Protein Albumin Urine Opiates Screen POSITIVE H Ur Buprenorphine Scrn Positive H Ur Oxycodone Screen Not Detected Urine Methadone Screen Not Detected Urine Fentanyl Screen POSITIVE H Ur Barbiturates Screen Not Detected Ur Phencyclidine Scrn Not Detected Ur Amphetamines Screen POSITIVE H U Benzodiazepines Scrn Not Detected Urine Cocaine Screen POSITIVE H U Marijuana (THC) Screen Not Detected Ethyl Alcohol Influenza Type A (PCR) Influenza Type B (PCR) RSV RNA Qual (PCR) SARS-CoV-2 RNA (RT-PCR) Assessment and Plan (1) Rhabdomyolysis: Status: Acute (2) Alcohol withdrawal: Status: Acute (3) Sepsis: Status: Acute (4) Polysubstance abuse: Status: Acute (5) Pneumonia: Status: Acute Plan This is a 48-year-old male with pertinent history of polysubstance use disorder, alcohol use disorder, mood disorder who was brought to the emergency department for evaluation of altered mentation. #. Acute toxic encephalopathy in a patient with polysubstance use disorder: Monitor for withdrawal. Consulted Addiction Team. UDS positive for opiates, fentanyl, cocaine #. Sepsis and acute hypoxemic respiratory failure due to aspiration pneumonia in the setting of above: Resuscitated with IV crystalloids. Lactic acid and blood culture obtained. Initiating IV Unasyn. Will keep NPO until mentation improves #. Acute lactic acidosis due to sepsis #. Acute rhabdomyolysis: Continue IV crystalloid resuscitation #. Alcohol use disorder: Phenobarb protocol initiated in the ER. Monitor CIWA. Consulted Addiction Team #. Hypokalemia: Repleted Med rec pending DVT prophylaxis: Lovenox Full code Admit as inpatient and will require two night minimum hospital stay for IV antibiotics, monitoring of mentation, supplemental oxygen (as above), which is not possible in a lesser acute setting. Quality Stroke Does the patient have a stroke diagnosis?: No VTE Prior VTE?: No VTE Risk Level:: Medical - moderate - high VTE Device Contraindication: Treatment Not Indicated VTE Drug Contraindication: N/A - Med Ordered
[2024-04-20] MEDS: LORazepam 2 MG/ML VIAL IVPUSH (05:30)
[2024-04-20] MEDS: Ampicillin Sodium/Sulbactam Na 3 GM in 0.9 % Sodium Chloride 100 ML IV ×3 (05:34→16:43)
[2024-04-20] MEDS: Enoxaparin Sodium 40 MG/0.4 ML SYRINGE SUBCUT (05:36)
[2024-04-20] MEDS: Lactated Ringers 1,000 ML 125 ML IVCONT ×3 (05:39→20:46)
[2024-04-20 05:44] LABS: Glucose, Whole Blood 74 mg/dL (60-115)
[2024-04-20] MEDS: Thiamine HCL 100 MG in 0.9 % Sodium Chloride 100 ML 202 MG IV ×2 (06:15→08:32)
[2024-04-20] MEDS: PHENobarbitaL sodium 130 MG/ML VIAL 287 MG IM (06:16)
--- NOTE | 2024-04-20 07:32 | PHA.MEDREC ---
Pharmacy Consult ? Medication Reconciliation Pharmacy has completed the medication reconciliation. Med rec done based on claim HX, no patient contact and patient unable to be spoken to
[2024-04-20] MEDS: PHENobarbitaL sodium 130 MG/ML VIAL 213 MG IM (08:10)
--- NOTE | 2024-04-20 08:16 | PC.NURSE ---
assumed care of patient at 0700, patient is unresponsive to pain/noxious stimuli. patient diaphoretic, dripping sweat on chest/head. patient will not open eyes, muscles rigid, abd rigid. unable to complete full CIWA assessment due to patients current state- CIWA 14 with muscle tremor,orientation and diaphoresis. patient skin noted to be intact. patient has LR running at 125ml/hr. patient is on 2l oxymask, respirations noisy/labored. inpatient attending notified.
[2024-04-20 08:59] LABS: Glucose, Whole Blood 74 mg/dL (60-115)
[2024-04-20 09:01] LABS: ABG HCO3 23 mmol/L (22-26); ABG pCO2 35 mmHg (32-45); ABG pH 7.41 (7.35-7.45); ABG pO2 87 mmHg (83-108)
[2024-04-20 09:48] LABS: MANUAL DIFF FLAG NO
--- NOTE | 2024-04-20 09:49 | PM.EVENT ---
Event Note Date of Service: 04/20/24 Event Note: called to the bedside to evaluate the patient patient is obtunded, non-responsive to painful stimuli; diaphoretic phlebotomy to bedside, unable to obtain labs. ABG ordered currently vitals signs stable, pt able to protect airway. renal function, brain CT previously normal; LFTs slightly elevated, CPK was trending down critical care consult placed and patient evaluated - patient able to protect his airway at this time. Encephalopathy likely due to polysubstance abuse and receiving multiple sedating medications in the emergency department. watch closely, await lab results, continue IVF will stop phenobarbitol for now. pt to remain NPO, aspiration precautions. further management based on lab results and clinical course Time Spent With Patient Time: Total time managing care of this patient today ____ minutes.
[2024-04-20 09:50] LABS: Basophils Percent Auto 0.3 % (0-2); Eosinophils Percent Auto 0.2 % (0-4); Hematocrit 32.6 % (42.0-52.0); Hemoglobin 10.8 g/dl (14.0-18.0); Imm Gran Abs Auto 0.05 X10*3/uL (0.00-0.03); Imm Gran Pct Auto 0.4 % (0.0-0.4); Lymphocytes Absolute Auto 1.1 X10*3/uL (1.2-4.9); Lymphocytes Percent Auto 7.8 % (20-40); Mean Corpuscular HGB Conc 33.1 g/dl (31.0-36.0); Mean Corpuscular Hemoglobin 27.5 pg (27.0-33.0); Mean Platelet Volume 9.2 fL (9.4-12.4); Monocytes Absolute Auto 0.8 X10*3/uL (0.1-1.2); Neutrophils Absolute Auto 11.6 x10*3/uL (2.0-8.3); Neutrophils Percent Auto 85.3 % (45-73); Platelet Count 294 X10*3/uL (160-400); Red Blood Count 3.93 X10*6/uL (4.60-5.80); Red Cell Distribution Width 14.3 % (11.0-16.0); White Blood Count 13.6 X10*3/uL (4.8-10.8)
[2024-04-20 09:55] LABS: VBG HCO3 26 mmol/L (22-26); VBG pCO2 33 mmHg; VBG pO2 116 mmHg
[2024-04-20 09:57] LABS: Ammonia 59 umol/L (13-55)
[2024-04-20 09:58] LABS: Venous Blood Gas Refer to POC result
[2024-04-20 10:06] LABS: Alanine Aminotransferase 51 U/L (0-40); Albumin Level 3.1 g/dL (3.5-5.0); Alkaline Phosphatase 96 U/L (39-117); Anion Gap 16 (12-20); Aspartate Amino Transferase 124 U/L (5-37); Bilirubin Direct 0.4 mg/dL (0.0-0.5); Bilirubin Total 0.9 mg/dL (0.0-1.0); Blood Urea Nitrogen 13 mg/dL (9-16); Calcium 7.8 mg/dL (8.4-10.2); Carbon Dioxide 22 mmol/L (22-29); Chloride 103 mmol/L (96-108); Estimated Glomerular Filt Rate > 60; Glucose Random 75 mg/dL (60-115); Potassium 3.3 mmol/L (3.3-5.1); Sodium 138 mmol/L (135-145); Total Protein 6.3 g/dL (6.5-8.0)
--- NOTE | 2024-04-20 10:54 | MHC.RECOVRN ---
Received Addiction Medicine consult for polysubstance use. Pt currently obtunded and unable to participate in assessment. Will continue to follow.
[2024-04-20] MEDS: vancomycin/NS 2,000 MG/500 ML PLAST..BAG 250 MG IV (14:35)
--- NOTE | 2024-04-20 14:45 | P.CONCC_ITS ---
History of Present Illness Data of Consult Service Date: 04/20/24 Primary Care Provider: Unknown Physician HPI Reason for consult: Level of care Late note for patient is seen around 09:30 a.m. 48-year-old gentleman with underlying history of polysubstance abuse including amphetamine, cocaine, opioids, and alcohol admitted on 04/20/2024 early in a.m. with alteration of mental status and polysubstance overdose. Patient also noted to have elevated CPK that has been downtrending, improving leukocytosis, and transaminitis. Patient was treated with empiric antibiotics, IV fluids, and phenobarbital protocol. He remains altered with intermittent arousals. His CT chest/abdomen/head did not demonstrate worrisome findings. His respiratory and hemodynamic status is stable. Review of Systems 2 Review of Systems: Yes Unobtainable due to mental status [facility] Past Medical History Medical History (Updated 04/20/24 @ 05:18 by Shakira Gannon MD) Mood disorder Social History Social History Household Members: Unknown / Unable to assess Housing: Unknown / Unable to assess Alcohol intake: current Patient Tobacco Use Status: Tobacco use Unknown Smoked in Last 30 Days: Yes Use of substances other than those prescribed or required for medical reasons: Unable to respond Substance Use Type: Amphetamines, Crack/Cocaine, Methamphetamine and Opiates Advance Directives: No Advance Directives Information Provided: No Recently lost weight without trying: Unsure Meds Allergies Allergy/AdvReac Type Severity Reaction Status Date / Time No Known Allergies Allergy Verified 04/19/24 21:34 Active Medications: Current Medications Acetaminophen (Acetaminophen 325 Mg Tablet) 650 mg PO Q6H PRN PRN Reason: Pain, Mild 1-3,fever,headache Acetaminophen (Acetaminophen Supp 650 Mg Supp.Rect) 650 mg [place] Q6H PRN PRN Reason: Pain, Mild 1-3,fever,headache Calcium Carbonate (Calcium Carbonate 750 Mg Tab.Chew) 750 mg PO Q4H PRN PRN Reason: Heartburn Enoxaparin Sodium (Enoxaparin Sodium 40 Mg/0.4 Ml Syringe) 40 mg SUBCUT Q24H [facility] Last Admin: 04/20/24 05:36 Dose: 40 mg Lactated Ringer's (Lr) 1,000 mls @ 125 mls/hr IVCONT .Q8H [facility] Last Admin: 04/20/24 12:35 Dose: 125 mls/hr Ampicillin Sodium/Sulbactam (Sodium 3 gm/ Sodium Chloride) 100 mls @ 200 mls/hr IV Q6H [facility] Last Infusion: 04/20/24 12:05 Dose: Infused Thiamine HCl 100 mg/ Sodium (Chloride) 101 mls @ 202 mls/hr IV DAILY [facility] Last Infusion: 04/20/24 09:22 Dose: Infused Vancomycin HCl (Vancomycin/Ns) 2,000 mg in 500 mls @ 250 mls/hr IV ONCE ONE Stop: 04/20/24 15:59 Last Admin: 04/20/24 14:35 Dose: 250 mls/hr Magnesium Hydroxide (Milk Of Magnesia 30 Ml Oral.Susp) 30 ml PO DAILY PRN PRN Reason: Constipation Melatonin (Melatonin 3 Mg Tablet) 6 mg PO BEDTIME PRN PRN Reason: Insomnia Ondansetron HCl (Ondansetron Hcl 4 Mg/2 Ml Vial) 4 mg IVPUSH Q8H PRN PRN Reason: Nausea and Vomiting Pharmacy Consult (Consult Rx Etoh Phenob Im/Po) 1 each MISCELLANE ONCE PRN; Protocol PRN Reason: Consult order Pharmacy Consult (Consult Rx Vancomycin Dosing) 1 each MISCELLANE DAILY PRN PRN Reason: Consult order Sodium Chloride (0.9 % Sodium Chloride Flush 3 Ml Syringe) 3 ml IVFLUSH QSHIFT [facility] Last Admin: 04/20/24 07:44 Dose: Not Given Home Medications ?Medication ?Instructions ?Recorded ?Confirmed ?Last Taken ?Type buprenorphine 8 mg-naloxone 2 mg 1 film sublingual BID 04/20/24 04/20/24 Unknown History sublingual film (Suboxone) dextroamphetamine-amphetamine 20 1 tab PO BID@0900,1400 04/20/24 04/20/24 Unknown History mg tablet escitalopram oxalate 20 mg tablet 20 mg PO DAILY 04/20/24 04/20/24 Unknown History lisdexamfetamine 60 mg capsule 60 mg PO DAILY 04/20/24 04/20/24 Unknown History (Vyvanse) propranolol 20 mg tablet 20 mg PO BID 04/20/24 04/20/24 Unknown History quetiapine 200 mg tablet 200 mg PO BEDTIME 04/20/24 04/20/24 Unknown History Physical Exam 2 Vital Signs: Vital Signs: Last Vital Signs Temp 98.1 F 04/20/24 11:48 Pulse 92 04/20/24 11:48 Resp 19 04/20/24 11:48 BP 132/71 04/20/24 11:48 Pulse Ox 95 04/20/24 11:48 O2 Del Method Room Air 04/20/24 11:48 O2 Flow Rate 2 04/20/24 10:47 BMI result Body Mass Index 32.5 Const: General: no acute distress and lethargic Orientation/consciousness: lethargic Eyes: Sclerae: sclerae normal EOM: EOMs intact bilaterally Neck: Neck: Yes no lymphadenopathy, Yes trachea midline and Yes supple Resp: Effort & Inspection: normal respiratory effort and no respiratory distress Auscultation: clear to auscultation bilaterally Cardio: Rate: regular rate Rhythm: regular rhythm Heart sounds: no gallops, no murmurs and no rubs GI: Palpation (GI): Soft to palpation and Other GI palpation findings present ( Nontender) Auscultation: normal bowel sounds Extrem: General: Yes no pedal edema, No clubbing and No cyanosis Results Labs 04/20/24 09:42 04/20/24 09:42 Labs: Short CBC 04/19/24 04/20/24 Range/Units 21:31 09:42 WBC 20.1 H 13.6 H (4.8-10.8) X10*3/uL Hgb 12.5 L 10.8 L (14.0-18.0) g/dl Hct 36.5 L 32.6 L (42.0-52.0) % Plt Count 374 294 (160-400) X10*3/uL BMP 04/19/24 04/20/24 21:31 09:42 Sodium 135 138 Potassium 3.0 L 3.3 Chloride 94 L 103 Carbon Dioxide 26 22 BUN 14 13 Creatinine 0.75 0.67 Calcium 8.4 7.8 L D Cardiac Enzymes 04/19/24 04/20/24 04/20/24 Range/Units 21:31 03:34 09:42 Total Creatine Kinase 5232 H 2664 H 1776 H (38-174) U/L Liver Function 04/19/24 04/20/24 Range/Units 21:31 09:42 Total Bilirubin 0.9 0.9 (0.0-1.0) mg/dL Direct Bilirubin 0.4 (0.0-0.5) mg/dL AST 211 H 124 H (5-37) U/L ALT 68 H 51 H (0-40) U/L Alkaline Phosphatase 114 96 (39-117) U/L Albumin 3.9 3.1 L (3.5-5.0) g/dL Assessment and Plan (1) Polysubstance abuse: Status: Acute (2) Rhabdomyolysis: Status: Acute Plan Impression: 48-year-old gentleman admitted with polysubstance overdose and rhabdomyolysis, now improving. Now with stable hemodynamic and respiratory status. Recommendation: At this time patient does not require intensive care level monitoring, please notify for re-evaluation if patient's condition changes.
--- NOTE | 2024-04-20 14:54 | MHC.CM.PN ---
Pt. is not able to participate in assessment at this time. Cm will approach at a later time.
[2024-04-20] MEDS: 0.9 % Sodium Chloride Flush 3 ML SYRINGE IVFLUSH ×2 (16:43→20:46)
--- NOTE | 2024-04-20 16:59 | PC.NURSE ---
Pt admitted to unit from ED, lethargic, somnolent, responsive only to painful stimulation. An hour later this RN noticed a change in pt's breathing. Pt more tachypneic, more labored, sonorous with abdominal breathing. Remains on 2L oxygen via oxymask satting mid 90's. Lung sounds dim. Pt more diaphoretic. Occasional periods of restlessness attempting to get OOB, and pulling at lines; sitter placed at bedside for safety as well as camera. Charge nurse, and provider notified, PA. Amparo Mcdaniel at the bedside to assess patient, notified semi conductor assembler Nirav Long of changes, also up to unit. No concerns or new orders at this time; instructed to continue to monitor pt for further changes
[2024-04-20 18:43] LABS: ABG Refer to POC result
[2024-04-21] VITALS (7 sets, daily range): BP systolic 135–183; BP diastolic 56–72; PULSE 83–96; RESP 18–26; TEMP 36.9–37.6; O2SAT 93–96
[2024-04-21] MEDS: Ampicillin Sodium/Sulbactam Na 3 GM in 0.9 % Sodium Chloride 100 ML IV ×5 (00:32→22:57)
[2024-04-21] MEDS: PHENobarbitaL sodium 130 MG/ML VIAL IM ×3 (00:43→21:19)
[2024-04-21] MEDS: vancomycin HCL 1,500 MG in 0.9 % Sodium Chloride 500 ML 333.33 MG IV ×3 (02:26→17:06)
[2024-04-21] MEDS: Buprenorphine/Naloxone 8/2 mg TAB.SUBL 1 TAB SUBLINGUAL (02:34)
[2024-04-21] MEDS: Enoxaparin Sodium 40 MG/0.4 ML SYRINGE SUBCUT (05:36)
[2024-04-21] MEDS: Lactated Ringers 1,000 ML 125 ML IVCONT ×2 (05:37→12:17)
[2024-04-21] MEDS: Thiamine HCL 100 MG in 0.9 % Sodium Chloride 100 ML 202 MG IV (08:54)
[2024-04-21] MEDS: LORazepam 2 MG/ML VIAL 1 MG IVPUSH (08:55)
[2024-04-21] MEDS: 0.9 % Sodium Chloride Flush 3 ML SYRINGE IVFLUSH ×2 (08:55→16:25)
--- NOTE | 2024-04-21 10:09 | P.PNIM_ITS ---
Subjective Subjective Date of Service: 04/21/24 Review of Systems Follow up AMS Sleeping on and off some aggression Physical Exam 2 Vital Signs: Vital Signs: Last Vital Signs Temp 99.5 F 04/21/24 07:34 Pulse 90 04/21/24 07:34 Resp 20 04/21/24 07:34 BP 145/56 H 04/21/24 07:34 Pulse Ox 94 04/21/24 07:34 O2 Del Method Room Air 04/21/24 07:34 O2 Flow Rate 1 04/20/24 19:08 BMI result Body Mass Index 32.5 Objective Data Active Medications Acetaminophen (Acetaminophen 325 Mg Tablet) 650 mg PO Q6H PRN PRN Reason: Pain, Mild 1-3,fever,headache Acetaminophen (Acetaminophen Supp 650 Mg Supp.Rect) 650 mg [place] Q6H PRN PRN Reason: Pain, Mild 1-3,fever,headache Calcium Carbonate (Calcium Carbonate 750 Mg Tab.Chew) 750 mg PO Q4H PRN PRN Reason: Heartburn Enoxaparin Sodium (Enoxaparin Sodium 40 Mg/0.4 Ml Syringe) 40 mg SUBCUT Q24H [facility] Last Admin: 04/21/24 05:36 Dose: 40 mg Documented By: ASHLEY Lactated Ringer's (Lr) 1,000 mls @ 125 mls/hr IVCONT .Q8H [facility] Last Admin: 04/21/24 05:37 Dose: 125 mls/hr Documented By: ASHLEY Ampicillin Sodium/Sulbactam (Sodium 3 gm/ Sodium Chloride) 100 mls @ 200 mls/hr IV Q6H [facility] Last Infusion: 04/21/24 06:06 Dose: Infused Documented By: ASHLEY Thiamine HCl 100 mg/ Sodium (Chloride) 101 mls @ 202 mls/hr IV DAILY [facility] Last Infusion: 04/21/24 09:46 Dose: Infused Documented By: KATHIE Vancomycin HCl 1,500 mg/ (Sodium Chloride) 500 mls @ 333.333 mls/hr IV Q12H [facility] Last Infusion: 04/21/24 03:57 Dose: Infused Documented By: ASHLEY Magnesium Hydroxide (Milk Of Magnesia 30 Ml Oral.Susp) 30 ml PO DAILY PRN PRN Reason: Constipation Melatonin (Melatonin 3 Mg Tablet) 6 mg PO BEDTIME PRN PRN Reason: Insomnia Ondansetron HCl (Ondansetron Hcl 4 Mg/2 Ml Vial) 4 mg IVPUSH Q8H PRN PRN Reason: Nausea and Vomiting Pharmacy Consult (Consult Rx Etoh Phenob Im/Po) 1 each MISCELLANE ONCE PRN; Protocol PRN Reason: Consult order Pharmacy Consult (Consult Rx Vancomycin Dosing) 1 each MISCELLANE DAILY PRN PRN Reason: Consult order Sodium Chloride (0.9 % Sodium Chloride Flush 3 Ml Syringe) 3 ml IVFLUSH QSHIFT [facility] Last Admin: 04/21/24 08:55 Dose: 3 ml Documented By: KATHIE Labs 04/20/24 09:42 04/20/24 09:42 Microbiology Microbiology Results: Microbiology 04/19/24 21:31 Blood Culture - Preliminary Blood - Venous No growth after 24 hours. 04/19/24 21:31 Blood Culture - Preliminary Blood - Venous No growth after 24 hours. Assessment and Plan (1) Mood disorder: Status: Acute Plan This is a 48-year-old male with pertinent history of polysubstance use disorder, alcohol use disorder, mood disorder who was brought to the emergency department for evaluation of altered mentation. Acute toxic encephalopathy in a patient with polysubstance use disorder Monitor for withdrawal. Consulted Addiction Team. UDS positive for opiates, fentanyl, cocaine Sepsis and acute hypoxemic respiratory failure due to aspiration pneumonia in the setting of above Resuscitated with IV crystalloids. Lactic acid and blood culture negative continue IV Unasyn. more awake, advance diet Acute lactic acidosis due to sepsis Acute rhabdomyolysis Continue IV crystalloid resuscitation Alcohol use disorder Phenobarb protocol initiated in the ER. Monitor CIWA. Consulted Addiction Team Hypokalemia Repleted DVT prophylaxis: Lovenox Full code Quality Stroke Does the patient have a stroke diagnosis?: No VTE Prior VTE?: No VTE Risk Level:: Medical - moderate - high VTE Device Contraindication: Treatment Not Indicated VTE Drug Contraindication: N/A - Med Ordered
--- NOTE | 2024-04-21 11:22 | MHC.RECOVRN ---
Attempted to meet with pt. Pt laying in bed, wakes very briefly to touch, unable to stay awake and engage in conversation. Will continue to follow.
--- NOTE | 2024-04-21 12:04 | MHC.CM.PN ---
Patient is not able to participate in the CM assessment. He is exhibiting SS OF withdrawal. No contacts have been listed. CM will see patient once he clears and can answer questions. DP Community resource information provided by the Recovery nurse. Pt may need assist with transportation home from [facility] [place], [place].
[2024-04-21] MEDS: Buprenorphine/Naloxone 8/2 mg FILM 1 FILM SUBLINGUAL ×2 (13:25→21:19)
[2024-04-21] MEDS: PHENobarbitaL sodium 130 MG/ML VIAL 213 MG IM (13:26)
--- NOTE | 2024-04-21 13:54 | MHC.RECOVRN ---
Attempted to follow up with pt. Pt in and out of sleep, difficult to engage in conversation. Pt able to report he is on Suboxone, uses a lot of heroin/fentanyl, a lot of alcohol, and he does use cocaine. Pt reports he does not know who is real or who is not, reports he doesn't know what is real or not. Attempted to orient patient. Will continue to follow. Discussed with pts RN.
[2024-04-21 15:49] LABS: MANUAL DIFF FLAG NO
[2024-04-21 16:11] LABS: Basophils Percent Auto 0.2 % (0-2); Eosinophils Absolute Auto 0.1 X10*3/uL (0.0-0.4); Eosinophils Percent Auto 0.6 % (0-4); Hematocrit 38.6 % (42.0-52.0); Hemoglobin 12.6 g/dl (14.0-18.0); Imm Gran Abs Auto 0.08 X10*3/uL (0.00-0.03); Imm Gran Pct Auto 0.8 % (0.0-0.4); Lymphocytes Absolute Auto 0.9 X10*3/uL (1.2-4.9); Lymphocytes Percent Auto 8.8 % (20-40); Mean Corpuscular HGB Conc 32.6 g/dl (31.0-36.0); Mean Corpuscular Hemoglobin 27.4 pg (27.0-33.0); Mean Corpuscular Volume 83.9 fL (80.0-98.0); Monocytes Absolute Auto 0.6 X10*3/uL (0.1-1.2); Monocytes Percent Auto 5.9 % (2-11); NRBC Pct Auto 0.2 /100WBC (0.0-0.2); Neutrophils Absolute Auto 8.1 x10*3/uL (2.0-8.3); Neutrophils Percent Auto 83.7 % (45-73); Platelet Count 232 X10*3/uL (160-400); Red Cell Distribution Width 15.2 % (11.0-16.0); White Blood Count 9.7 X10*3/uL (4.8-10.8)
[2024-04-21 16:19] LABS: Vancomycin Random 2.8 mcg/mL (15-20)
[2024-04-21 16:23] LABS: Alanine Aminotransferase 42 U/L (0-40); Albumin Level 2.9 g/dL (3.5-5.0); Anion Gap 15 (12-20); Aspartate Amino Transferase 73 U/L (5-37); Bilirubin Direct 0.2 mg/dL (0.0-0.5); Bilirubin Total 0.5 mg/dL (0.0-1.0); Blood Urea Nitrogen 5 mg/dL (9-16); Calcium 8.2 mg/dL (8.4-10.2); Carbon Dioxide 20 mmol/L (22-29); Chloride 102 mmol/L (96-108); Creatinine Clr Calc Pharmacy 159.4; Estimated Glomerular Filt Rate > 60; Glucose Random 182 mg/dL (60-115); Magnesium 1.6 mg/dL (1.6-2.6); Potassium 3.2 mmol/L (3.3-5.1); Sodium 134 mmol/L (135-145); Total Protein 6.2 g/dL (6.5-8.0)
[2024-04-21 16:43] LABS: Alkaline Phosphatase 93 U/L (39-117)
--- NOTE | 2024-04-21 17:00 | HE.PHANOTE ---
VANCO DOSE ADJUSTMENT BASED ON SCR AND TROUGH OF 2.8 DOSE INCREASED TO 1500 Q8H. NEXT LEVEL AT 04/22 @ 1500
[2024-04-21] MEDS: Potassium Chloride ER 20 MEQ TAB.ER.PRT 40 MEQ PO (17:05)
[2024-04-21] MEDS: ondansetron HCL 4 MG/2 ML VIAL IVPUSH (18:51)
[2024-04-21] MEDS: PHENOBARBITAL 45 MG PO (21:18)
[2024-04-21] MEDS: QUEtiapine Fumarate 200 MG TABLET PO (21:18)
[2024-04-21] MEDS: Propranolol HCL 20 MG TABLET PO (21:19)
[2024-04-22] MEDS: vancomycin HCL 1,500 MG in 0.9 % Sodium Chloride 500 ML 333.33 MG IV (02:30)
[2024-04-22] MEDS: diazePAM 10 MG/2 ML CARTRIDGE IVPUSH (02:56)
[2024-04-22 03:47] VITALS: BP 123/59; PULSE 76; RESP 20; TEMP 36.8; O2SAT 96
[2024-04-22] MEDS: Ampicillin Sodium/Sulbactam Na 3 GM in 0.9 % Sodium Chloride 100 ML IV ×3 (05:54→17:14)
[2024-04-22] MEDS: Enoxaparin Sodium 40 MG/0.4 ML SYRINGE SUBCUT (05:55)
[2024-04-22 07:30] VITALS: BP 137/69; PULSE 75; RESP 20; TEMP 36.6; O2SAT 96
[2024-04-22] MEDS: Thiamine HCL 100 MG in 0.9 % Sodium Chloride 100 ML 202 MG IV (07:31)
[2024-04-22] MEDS: PHENOBARBITAL 45 MG PO ×2 (07:31→20:02)
[2024-04-22] MEDS: Escitalopram Oxalate 20 MG TABLET PO (07:31)
[2024-04-22] MEDS: Propranolol HCL 20 MG TABLET PO ×2 (07:31→20:02)
[2024-04-22] MEDS: 0.9 % Sodium Chloride Flush 3 ML SYRINGE IVFLUSH ×2 (07:32→15:37)
--- NOTE | 2024-04-22 09:21 | P.PNIM_ITS ---
Subjective Subjective Date of Service: 04/22/24 Review of Systems Follow up AMS more awake today, but off and on anxiety some aggression overnight Physical Exam 2 Vital Signs: Vital Signs: Last Vital Signs Temp 98 F 04/22/24 07:30 Pulse 75 04/22/24 07:30 Resp 20 04/22/24 07:30 BP 137/69 04/22/24 07:30 Pulse Ox 96 04/22/24 07:30 O2 Del Method Room Air 04/22/24 07:30 O2 Flow Rate 2 04/22/24 03:47 BMI result Body Mass Index 32.5 Appearing in no acute distress lung sounds are clear to auscultation heart regular rate rhythm, clear S1, S2 positive bowel sounds, abdomen is soft, nontender neuro patient is alert x3, no focal deficits Objective Data Active Medications Acetaminophen (Acetaminophen 325 Mg Tablet) 650 mg PO Q6H PRN PRN Reason: Pain, Mild 1-3,fever,headache Acetaminophen (Acetaminophen Supp 650 Mg Supp.Rect) 650 mg [place] Q6H PRN PRN Reason: Pain, Mild 1-3,fever,headache Buprenorphine/Naloxone (Buprenorphine/Naloxone 8/2 Mg Film) 1 film SUBLINGUAL BID [facility] Last Admin: 04/21/24 21:19 Dose: 1 film Documented By: ILIANA Calcium Carbonate (Calcium Carbonate 750 Mg Tab.Chew) 750 mg PO Q4H PRN PRN Reason: Heartburn Enoxaparin Sodium (Enoxaparin Sodium 40 Mg/0.4 Ml Syringe) 40 mg SUBCUT Q24H [facility] Last Admin: 04/22/24 05:55 Dose: 40 mg Documented By: ILIANA Escitalopram Oxalate (Escitalopram Oxalate 20 Mg Tablet) 20 mg PO DAILY [facility] Last Admin: 04/22/24 07:31 Dose: 20 mg Documented By: KATHIE Ampicillin Sodium/Sulbactam (Sodium 3 gm/ Sodium Chloride) 100 mls @ 200 mls/hr IV Q6H [facility] Last Infusion: 04/22/24 06:40 Dose: Infused Documented By: ILIANA Thiamine HCl 100 mg/ Sodium (Chloride) 101 mls @ 202 mls/hr IV DAILY [facility] Last Infusion: 04/22/24 09:08 Dose: Infused Documented By: KATHIE Vancomycin HCl 1,500 mg/ (Sodium Chloride) 500 mls @ 333.333 mls/hr IV Q8H [facility] Last Infusion: 04/22/24 04:03 Dose: Infused Documented By: ILIANA Magnesium Hydroxide (Milk Of Magnesia 30 Ml Oral.Susp) 30 ml PO DAILY PRN PRN Reason: Constipation Melatonin (Melatonin 3 Mg Tablet) 6 mg PO BEDTIME PRN PRN Reason: Insomnia Ondansetron HCl (Ondansetron Hcl 4 Mg/2 Ml Vial) 4 mg IVPUSH Q8H PRN PRN Reason: Nausea and Vomiting Last Admin: 04/21/24 18:51 Dose: 4 mg Documented By: KATHIE Pharmacy Consult (Consult Rx Etoh Phenob Im/Po) 1 each MISCELLANE ONCE PRN; Protocol PRN Reason: Consult order Pharmacy Consult (Consult Rx Vancomycin Dosing) 1 each MISCELLANE DAILY PRN PRN Reason: Consult order Phenobarbital 15 mg/ (Phenobarbital 30 mg) 45 mg PO BID [facility] Stop: 04/23/24 09:01 Last Admin: 04/22/24 07:31 Dose: 45 mg Documented By: KATHIE Phenobarbital (Phenobarbital 30 Mg Tablet) 30 mg PO BID [facility] Stop: 04/25/24 09:01 Phenobarbital (Phenobarbital 15 Mg Tablet) 15 mg PO DAILY [facility] Stop: 04/27/24 09:01 Propranolol HCl (Propranolol Hcl 20 Mg Tablet) 20 mg PO BID [facility]; Protocol Last Admin: 04/22/24 07:31 Dose: 20 mg Documented By: KATHIE Quetiapine Fumarate (Quetiapine Fumarate 200 Mg Tablet) 200 mg PO BEDTIME [facility] Last Admin: 04/21/24 21:18 Dose: 200 mg Documented By: ILIANA Sodium Chloride (0.9 % Sodium Chloride Flush 3 Ml Syringe) 3 ml IVFLUSH QSHIFT [facility] Last Admin: 04/22/24 07:32 Dose: 3 ml Documented By: KATHIE Labs 04/21/24 15:24 04/21/24 15:24 Labs: Laboratory Results - last 24 hr 04/21/24 04/21/24 04/21/24 15:24 15:24 15:24 MCV 83.9 MCH 27.4 MCHC 32.6 RDW 15.2 Plt Count 232 MPV 10.0 Immature Gran % (Auto) 0.8 H Neut % (Auto) 83.7 H Lymph % (Auto) 8.8 L [place] % (Auto) 5.9 Eos % (Auto) 0.6 Baso % (Auto) 0.2 Lymph # (Auto) 0.9 L [place] # (Auto) 0.6 Eos # (Auto) 0.1 Baso # (Auto) 0.0 Abs Immat Gran (auto) 0.08 H Absolute Neuts (auto) 8.1 Absolute Nucleated RBC 0.020 H Nucleated RBC % (auto) 0.2 Anion Gap 15 Estim Creat Clear Calc 159.4 Cancelled Estimated GFR > 60 Cancelled Random Glucose 182 H Calcium 8.2 L Magnesium 1.6 Total Bilirubin Direct Bilirubin AST ALT Alkaline Phosphatase Total Protein Albumin Random Vancomycin 04/21/24 04/21/24 04/21/24 15:24 15:24 15:24 MCV MCH MCHC RDW Plt Count MPV Immature Gran % (Auto) Neut % (Auto) Lymph % (Auto) [place] % (Auto) Eos % (Auto) Baso % (Auto) Lymph # (Auto) [place] # (Auto) Eos # (Auto) Baso # (Auto) Abs Immat Gran (auto) Absolute Neuts (auto) Absolute Nucleated RBC Nucleated RBC % (auto) Anion Gap Estim Creat Clear Calc Estimated GFR Random Glucose Calcium Magnesium Cancelled Total Bilirubin 0.5 Cancelled Direct Bilirubin 0.2 Cancelled AST 73 H ALT Alkaline Phosphatase Total Protein Albumin Random Vancomycin 04/21/24 04/21/24 04/21/24 15:24 15:24 15:24 MCV MCH MCHC RDW Plt Count MPV Immature Gran % (Auto) Neut % (Auto) Lymph % (Auto) [place] % (Auto) Eos % (Auto) Baso % (Auto) Lymph # (Auto) [place] # (Auto) Eos # (Auto) Baso # (Auto) Abs Immat Gran (auto) Absolute Neuts (auto) Absolute Nucleated RBC Nucleated RBC % (auto) Anion Gap Estim Creat Clear Calc Estimated GFR Random Glucose Calcium Magnesium Total Bilirubin Direct Bilirubin AST Cancelled ALT 42 H Cancelled Alkaline Phosphatase 93 Cancelled Total Protein 6.2 L Albumin Random Vancomycin 04/21/24 04/21/24 15:24 15:24 MCV MCH MCHC RDW Plt Count MPV Immature Gran % (Auto) Neut % (Auto) Lymph % (Auto) [place] % (Auto) Eos % (Auto) Baso % (Auto) Lymph # (Auto) [place] # (Auto) Eos # (Auto) Baso # (Auto) Abs Immat Gran (auto) Absolute Neuts (auto) Absolute Nucleated RBC Nucleated RBC % (auto) Anion Gap Estim Creat Clear Calc Estimated GFR Random Glucose Calcium Magnesium Total Bilirubin Direct Bilirubin AST ALT Alkaline Phosphatase Total Protein Cancelled Albumin 2.9 L Cancelled Random Vancomycin 2.8 L Microbiology Microbiology Results: Microbiology 04/19/24 21:31 Blood Culture - Preliminary Blood - Venous No growth after 48 hours. 04/19/24 21:31 Blood Culture - Preliminary Blood - Venous No growth after 48 hours. Assessment and Plan (1) Mood disorder: Status: Acute Plan 48-year-old male with pertinent history of polysubstance use disorder, alcohol use disorder, mood disorder who was brought to the emergency department for evaluation of altered mentation. Acute toxic encephalopathy in a patient with polysubstance use disorder Monitor for withdrawal. Addiction Team following UDS positive for opiates, fentanyl, cocaine clonidine added Sepsis and acute hypoxemic respiratory failure due to aspiration pneumonia in the setting of above. Sepsis resolved Resuscitated with IV crystalloids. Lactic acid and blood culture negative continue IV Unasyn. more awake, advance diet Acute lactic acidosis due to sepsis Acute rhabdomyolysis Continue IV crystalloid resuscitation Alcohol use disorder Phenobarb protocol initiated in the ER. Monitor CIWA. Consulted Addiction Team Hypokalemia Repleted DVT prophylaxis: Lovenox Full code Quality Stroke Does the patient have a stroke diagnosis?: No VTE Prior VTE?: No VTE Risk Level:: Medical - moderate - high VTE Device Contraindication: Treatment Not Indicated VTE Drug Contraindication: N/A - Med Ordered
[2024-04-22 09:38] VITALS: BP 135/68
[2024-04-22] MEDS: cloNIDine HCL 0.1 MG TABLET PO ×3 (09:38→20:02)
[2024-04-22] MEDS: Buprenorphine/Naloxone 8/2 mg FILM 1 FILM SUBLINGUAL ×2 (09:38→20:02)
[2024-04-22] MEDS: Acetaminophen 325 MG TABLET 650 MG PO (09:39)
--- NOTE | 2024-04-22 10:25 | PC.NURSE ---
Called down to Pharmacy regarding Vancomycin IV medication. Patient refused blood draws multiple times. Pharmacist mentioned she will get in contact with the provider Notified Aylin Espinoza about the refusal of blood draws.
[2024-04-22 15:34] VITALS: BP 117/60
[2024-04-22] MEDS: LORazepam 1 MG TABLET PO ×2 (15:34→20:48)
[2024-04-22 15:46] VITALS: BP 117/60; PULSE 65; RESP 18; TEMP 36.2; O2SAT 94
--- NOTE | 2024-04-22 16:10 | MHC.CM.PN ---
Attempted to obtain information from patient for CM assessment. He is not able to participate in the interview. He has been medicated for ETOH WD using the CIWA scale. The patient does not have an emergency contact listed. He was asked for the name of a family member or friend, but the patient shook his head no. He began snoring immediately. CM assessment will need to occur when the patient is able to participate or provide the name of a salesperson burial plots. Case Management will follow.
[2024-04-22] MEDS: Magnesium Oxide 400 MG TABLET PO (17:13)
[2024-04-22 19:46] VITALS: BP 124/58; PULSE 70; RESP 17; TEMP 36.7; O2SAT 96
[2024-04-22] MEDS: Potassium Chloride ER 20 MEQ TAB.ER.PRT PO (20:02)
[2024-04-22] MEDS: QUEtiapine Fumarate 200 MG TABLET PO (20:02)
[2024-04-23] MEDS: 0.9 % Sodium Chloride Flush 3 ML SYRINGE IVFLUSH ×4 (00:34→20:50)
[2024-04-23] MEDS: Ampicillin Sodium/Sulbactam Na 3 GM in 0.9 % Sodium Chloride 100 ML IV ×5 (00:34→23:31)
[2024-04-23 04:00] VITALS: PULSE 95; RESP 18; TEMP 36.6; O2SAT 97
[2024-04-23 04:36] VITALS: BP 141/75; PULSE 70; RESP 16; TEMP 36.5; O2SAT 96
[2024-04-23] MEDS: LORazepam 1 MG TABLET PO ×3 (05:48→20:47)
[2024-04-23] MEDS: Acetaminophen 325 MG TABLET 650 MG PO ×2 (05:49→20:54)
[2024-04-23 07:27] LABS: Anion Gap 13 (12-20); Blood Urea Nitrogen 4 mg/dL (9-16); Calcium 8.6 mg/dL (8.4-10.2); Carbon Dioxide 27 mmol/L (22-29); Chloride 104 mmol/L (96-108); Creatinine Clr Calc Pharmacy 165.1; Estimated Glomerular Filt Rate > 60; Glucose Random 152 mg/dL (60-115); Potassium 3.4 mmol/L (3.3-5.1); Sodium 141 mmol/L (135-145)
[2024-04-23 08:00] VITALS: BP 124/60; PULSE 67; RESP 19; TEMP 36.8; O2SAT 96
[2024-04-23] MEDS: Magnesium Oxide 400 MG TABLET PO ×2 (08:04→17:51)
[2024-04-23] MEDS: PHENOBARBITAL 45 MG PO (08:04)
[2024-04-23] MEDS: cloNIDine HCL 0.1 MG TABLET PO ×3 (08:04→20:47)
[2024-04-23] MEDS: Potassium Chloride ER 20 MEQ TAB.ER.PRT PO ×2 (08:05→20:47)
[2024-04-23] MEDS: Enoxaparin Sodium 40 MG/0.4 ML SYRINGE SUBCUT (08:06)
[2024-04-23] MEDS: Escitalopram Oxalate 20 MG TABLET PO (08:06)
[2024-04-23] MEDS: Propranolol HCL 20 MG TABLET PO ×2 (08:06→20:47)
[2024-04-23] MEDS: Buprenorphine/Naloxone 8/2 mg FILM 1 FILM SUBLINGUAL ×2 (08:08→20:49)
[2024-04-23] MEDS: Thiamine HCL 100 MG in 0.9 % Sodium Chloride 100 ML 202 MG IV (08:43)
--- NOTE | 2024-04-23 09:19 | HO.PM.IMPN ---
Subjective Subjective Date of Service: 04/23/24 Review of Systems Follow up AMS still sleepy throughout the day but better and more awake Physical Exam Vital Signs: Vital Signs: Last Vital Signs Temp 98.3 F 04/23/24 08:00 Pulse 67 04/23/24 08:00 Resp 19 04/23/24 08:00 BP 124/60 04/23/24 08:00 Pulse Ox 96 04/23/24 08:00 O2 Del Method Room Air 04/23/24 08:00 O2 Flow Rate 2 04/22/24 03:47 BMI result Body Mass Index 32.5 Appearing in no acute distress lung sounds are clear to auscultation heart regular rate rhythm, clear S1, S2 positive bowel sounds, abdomen is soft, nontender neuro patient is alert x3, no focal deficits Objective Data Active Medications Acetaminophen (Acetaminophen 325 Mg Tablet) 650 mg PO Q6H PRN PRN Reason: Pain, Mild 1-3,fever,headache Last Admin: 04/23/24 05:49 Dose: 650 mg Documented By: ASHLEY Acetaminophen (Acetaminophen Supp 650 Mg Supp.Rect) 650 mg [place] Q6H PRN PRN Reason: Pain, Mild 1-3,fever,headache Buprenorphine/Naloxone (Buprenorphine/Naloxone 8/2 Mg Film) 1 film SUBLINGUAL BID [facility] Last Admin: 04/23/24 08:08 Dose: 1 film Documented By: PORFIRIO Calcium Carbonate (Calcium Carbonate 750 Mg Tab.Chew) 750 mg PO Q4H PRN PRN Reason: Heartburn Clonidine HCl (Clonidine Hcl 0.1 Mg Tablet) 0.1 mg PO TID [facility]; Protocol Last Admin: 04/23/24 08:04 Dose: 0.1 mg Documented By: PORFIRIO Enoxaparin Sodium (Enoxaparin Sodium 40 Mg/0.4 Ml Syringe) 40 mg SUBCUT DAILY [facility] Last Admin: 04/23/24 08:06 Dose: 40 mg Documented By: PORFIRIO Escitalopram Oxalate (Escitalopram Oxalate 20 Mg Tablet) 20 mg PO DAILY [facility] Last Admin: 04/23/24 08:06 Dose: 20 mg Documented By: PORFIRIO Ampicillin Sodium/Sulbactam (Sodium 3 gm/ Sodium Chloride) 100 mls @ 200 mls/hr IV Q6H [facility] Last Infusion: 04/23/24 06:00 Dose: Infused Documented By: ASHLEY Thiamine HCl 100 mg/ Sodium (Chloride) 101 mls @ 202 mls/hr IV DAILY [facility] Last Admin: 04/23/24 08:43 Dose: 202 mls/hr Documented By: PORFIRIO Lorazepam (Lorazepam 1 Mg Tablet) 1 mg PO Q6H PRN PRN Reason: anxiety/restlessness Last Admin: 04/23/24 05:48 Dose: 1 mg Documented By: ASHLEY Comments: reporting anxiety Magnesium Hydroxide (Milk Of Magnesia 30 Ml Oral.Susp) 30 ml PO DAILY PRN PRN Reason: Constipation Magnesium Oxide (Magnesium Oxide 400 Mg Tablet) 400 mg PO BIDPC [facility] Last Admin: 04/23/24 08:04 Dose: 400 mg Documented By: PORFIRIO Melatonin (Melatonin 3 Mg Tablet) 6 mg PO BEDTIME PRN PRN Reason: Insomnia Ondansetron HCl (Ondansetron Hcl 4 Mg/2 Ml Vial) 4 mg IVPUSH Q8H PRN PRN Reason: Nausea and Vomiting Last Admin: 04/21/24 18:51 Dose: 4 mg Documented By: KATHIE Pharmacy Consult (Consult Rx Etoh Phenob Im/Po) 1 each MISCELLANE ONCE PRN; Protocol PRN Reason: Consult order Phenobarbital (Phenobarbital 30 Mg Tablet) 30 mg PO BID [facility] Stop: 04/25/24 09:01 Phenobarbital (Phenobarbital 15 Mg Tablet) 15 mg PO DAILY [facility] Stop: 04/27/24 09:01 Potassium Chloride (Potassium Chloride Er 20 Meq Tab.Er.Prt) 20 meq PO BID [facility] Last Admin: 04/23/24 08:05 Dose: 20 meq Documented By: PORFIRIO Propranolol HCl (Propranolol Hcl 20 Mg Tablet) 20 mg PO BID [facility]; Protocol Last Admin: 04/23/24 08:06 Dose: 20 mg Documented By: PORFIRIO Quetiapine Fumarate (Quetiapine Fumarate 200 Mg Tablet) 200 mg PO BEDTIME [facility] Last Admin: 04/22/24 20:02 Dose: 200 mg Documented By: ASHLEY Sodium Chloride (0.9 % Sodium Chloride Flush 3 Ml Syringe) 3 ml IVFLUSH QSHIFT [facility] Last Admin: 04/23/24 08:44 Dose: 3 ml Documented By: PORFIRIO Labs 04/21/24 15:24 04/23/24 06:23 Labs: Laboratory Results - last 24 hr 04/23/24 04/23/24 04/23/24 06:23 06:23 06:23 Anion Gap 13 Estim Creat Clear Calc Cancelled 165.1 Estimated GFR Cancelled > 60 Random Glucose 152 H Calcium 8.6 Assessment and Plan (1) Mood disorder: Status: Acute Plan 48-year-old male with pertinent history of polysubstance use disorder, alcohol use disorder, mood disorder who was brought to the emergency department for evaluation of altered mentation. Acute toxic encephalopathy in a patient with polysubstance use disorder slowly improving Addiction Team following UDS positive for opiates, fentanyl, cocaine clonidine and ativan added also on suboxone Sepsis and acute hypoxemic respiratory failure due to aspiration pneumonia in the setting of above. Sepsis resolved Resuscitated with IV crystalloids. Lactic acid and blood culture negative continue IV Unasyn (Day 5) Acute lactic acidosis due to sepsis Acute rhabdomyolysis Continue IV crystalloid resuscitation Alcohol use disorder Phenobarb protocol initiated in the ER. Monitor CIWA. Consulted Addiction Team Hypokalemia Repleted DVT prophylaxis: Lovenox Full code Quality Stroke Does the patient have a stroke diagnosis?: No VTE Prior VTE?: No VTE Risk Level:: Medical - moderate - high VTE Device Contraindication: Treatment Not Indicated VTE Drug Contraindication: N/A - Med Ordered
--- NOTE | 2024-04-23 10:59 | HO.ADDICTPRO ---
Subjective Subjective Date of Service: 04/23/24 Reason For Visit: AMS Interim History: Patient seen in follow up for encephalopathy related to substance use Over the weekend patient was restarted on his buprenorphine and phenobarbitol (for alcohol withdrawal) Patient has continued to have periods of agitation requiring PRN medications to assist with behaviors (jumping out of bed, yelling, etc) Patient seen in room 477 with Recovery Support RN He is asleep in bed--pt observer reporting he recently abulated to commode without issue, and quickly back to sleep He is reported to be irritable, with minimal engagement Patient wakes to voice, very briefly and requires verbal prompts to answer questions as he quickly falls back to sleep He denies any withdrawal sx, however states I don't feel great . When asked what he meant by that he stated, my anxiety and my joints hurt . Appears comfortable in bed--does not appear to be in any distress. Labs reviewed and improving Review of Systems Constitutional: Reports as per HPI (limited based on drowsiness) Mental Status Exam Mental Status Exam Level of Consciousness: Drowsy Diagnostics Vital Signs (24Hr): Vital Signs - 24 hr 04/22/24 15:34 04/22/24 15:46 04/22/24 19:46 Temperature 97.2 F 98.0 F Pulse Rate 65 70 Respiratory Rate 18 17 Blood Pressure 117/60 117/60 124/58 L Pulse Oximetry 94 96 Oxygen Delivery Method Room Air Room Air 04/23/24 04:00 04/23/24 04:36 04/23/24 08:00 Temperature 97.8 F 97.7 F 98.3 F Pulse Rate 95 70 67 Respiratory Rate 18 16 19 Blood Pressure 141/75 H 124/60 Pulse Oximetry 97 96 96 Oxygen Delivery Method Room Air Room Air Room Air BMI result Body Mass Index 32.5 Labs 04/21/24 15:24 04/23/24 06:23 Labs: Laboratory Results - last 48 hr 04/21/24 04/21/24 04/21/24 15:24 15:24 15:24 WBC 9.7 RBC 4.60 Hgb 12.6 L Hct 38.6 L MCV 83.9 MCH 27.4 MCHC 32.6 RDW 15.2 Plt Count 232 MPV 10.0 Immature Gran % (Auto) 0.8 H Neut % (Auto) 83.7 H Lymph % (Auto) 8.8 L [place] % (Auto) 5.9 Eos % (Auto) 0.6 Baso % (Auto) 0.2 Lymph # (Auto) 0.9 L [place] # (Auto) 0.6 Eos # (Auto) 0.1 Baso # (Auto) 0.0 Abs Immat Gran (auto) 0.08 H Absolute Neuts (auto) 8.1 Absolute Nucleated RBC 0.020 H Nucleated RBC % (auto) 0.2 Sodium 134 L Potassium 3.2 L Chloride 102 Carbon Dioxide 20 L Anion Gap 15 BUN 5 L Creatinine 0.66 Cancelled Estim Creat Clear Calc 159.4 Cancelled Estimated GFR > 60 Random Glucose Calcium Magnesium Total Bilirubin Direct Bilirubin AST ALT Alkaline Phosphatase Total Protein Albumin Random Vancomycin 04/21/24 04/21/24 04/21/24 15:24 15:24 15:24 WBC RBC Hgb Hct MCV MCH MCHC RDW Plt Count MPV Immature Gran % (Auto) Neut % (Auto) Lymph % (Auto) [place] % (Auto) Eos % (Auto) Baso % (Auto) Lymph # (Auto) [place] # (Auto) Eos # (Auto) Baso # (Auto) Abs Immat Gran (auto) Absolute Neuts (auto) Absolute Nucleated RBC Nucleated RBC % (auto) Sodium Potassium Chloride Carbon Dioxide Anion Gap BUN Creatinine Estim Creat Clear Calc Estimated GFR Cancelled Random Glucose 182 H Calcium 8.2 L Magnesium 1.6 Cancelled Total Bilirubin 0.5 Cancelled Direct Bilirubin 0.2 AST ALT Alkaline Phosphatase Total Protein Albumin Random Vancomycin 04/21/24 04/21/24 04/21/24 15:24 15:24 15:24 WBC RBC Hgb Hct MCV MCH MCHC RDW Plt Count MPV Immature Gran % (Auto) Neut % (Auto) Lymph % (Auto) [place] % (Auto) Eos % (Auto) Baso % (Auto) Lymph # (Auto) [place] # (Auto) Eos # (Auto) Baso # (Auto) Abs Immat Gran (auto) Absolute Neuts (auto) Absolute Nucleated RBC Nucleated RBC % (auto) Sodium Potassium Chloride Carbon Dioxide Anion Gap BUN Creatinine Estim Creat Clear Calc Estimated GFR Random Glucose Calcium Magnesium Total Bilirubin Direct Bilirubin Cancelled AST 73 H Cancelled ALT 42 H Cancelled Alkaline Phosphatase 93 Total Protein Albumin Random Vancomycin 04/21/24 04/21/24 04/21/24 15:24 15:24 15:24 WBC RBC Hgb Hct MCV MCH MCHC RDW Plt Count MPV Immature Gran % (Auto) Neut % (Auto) Lymph % (Auto) [place] % (Auto) Eos % (Auto) Baso % (Auto) Lymph # (Auto) [place] # (Auto) Eos # (Auto) Baso # (Auto) Abs Immat Gran (auto) Absolute Neuts (auto) Absolute Nucleated RBC Nucleated RBC % (auto) Sodium Potassium Chloride Carbon Dioxide Anion Gap BUN Creatinine Estim Creat Clear Calc Estimated GFR Random Glucose Calcium Magnesium Total Bilirubin Direct Bilirubin AST ALT Alkaline Phosphatase Cancelled Total Protein 6.2 L Cancelled Albumin 2.9 L Cancelled Random Vancomycin 2.8 L 04/23/24 04/23/24 04/23/24 06:23 06:23 06:23 WBC RBC Hgb Hct MCV MCH MCHC RDW Plt Count MPV Immature Gran % (Auto) Neut % (Auto) Lymph % (Auto) [place] % (Auto) Eos % (Auto) Baso % (Auto) Lymph # (Auto) [place] # (Auto) Eos # (Auto) Baso # (Auto) Abs Immat Gran (auto) Absolute Neuts (auto) Absolute Nucleated RBC Nucleated RBC % (auto) Sodium 141 Potassium 3.4 Chloride 104 Carbon Dioxide 27 Anion Gap 13 BUN 4 L Creatinine Cancelled 0.63 Estim Creat Clear Calc Cancelled 165.1 Estimated GFR Cancelled Random Glucose Calcium Magnesium Total Bilirubin Direct Bilirubin AST ALT Alkaline Phosphatase Total Protein Albumin Random Vancomycin 04/23/24 06:23 WBC RBC Hgb Hct MCV MCH MCHC RDW Plt Count MPV Immature Gran % (Auto) Neut % (Auto) Lymph % (Auto) [place] % (Auto) Eos % (Auto) Baso % (Auto) Lymph # (Auto) [place] # (Auto) Eos # (Auto) Baso # (Auto) Abs Immat Gran (auto) Absolute Neuts (auto) Absolute Nucleated RBC Nucleated RBC % (auto) Sodium Potassium Chloride Carbon Dioxide Anion Gap BUN Creatinine Estim Creat Clear Calc Estimated GFR > 60 Random Glucose 152 H Calcium 8.6 Magnesium Total Bilirubin Direct Bilirubin AST ALT Alkaline Phosphatase Total Protein Albumin Random Vancomycin Medications Medications Current Medications Acetaminophen (Acetaminophen 325 Mg Tablet) 650 mg PO Q6H PRN PRN Reason: Pain, Mild 1-3,fever,headache Last Admin: 04/23/24 05:49 Dose: 650 mg Acetaminophen (Acetaminophen Supp 650 Mg Supp.Rect) 650 mg [place] Q6H PRN PRN Reason: Pain, Mild 1-3,fever,headache Buprenorphine/Naloxone (Buprenorphine/Naloxone 8/2 Mg Film) 1 film SUBLINGUAL BID [facility] Last Admin: 04/23/24 08:08 Dose: 1 film Calcium Carbonate (Calcium Carbonate 750 Mg Tab.Chew) 750 mg PO Q4H PRN PRN Reason: Heartburn Clonidine HCl (Clonidine Hcl 0.1 Mg Tablet) 0.1 mg PO TID [facility]; Protocol Last Admin: 04/23/24 08:04 Dose: 0.1 mg Enoxaparin Sodium (Enoxaparin Sodium 40 Mg/0.4 Ml Syringe) 40 mg SUBCUT DAILY [facility] Last Admin: 04/23/24 08:06 Dose: 40 mg Escitalopram Oxalate (Escitalopram Oxalate 20 Mg Tablet) 20 mg PO DAILY [facility] Last Admin: 04/23/24 08:06 Dose: 20 mg Ampicillin Sodium/Sulbactam (Sodium 3 gm/ Sodium Chloride) 100 mls @ 200 mls/hr IV Q6H [facility] Last Infusion: 04/23/24 06:00 Dose: Infused Lorazepam (Lorazepam 1 Mg Tablet) 1 mg PO Q6H PRN PRN Reason: anxiety/restlessness Last Admin: 04/23/24 05:48 Dose: 1 mg Magnesium Hydroxide (Milk Of Magnesia 30 Ml Oral.Susp) 30 ml PO DAILY PRN PRN Reason: Constipation [facility] ([facility] Admin: 04/23/24 08:04 Dose: 400 mg Melatonin (Melatonin 3 Mg Tablet) 6 mg PO BEDTIME PRN PRN Reason: Insomnia Ondansetron HCl (Ondansetron Hcl 4 Mg/2 Ml Vial) 4 mg IVPUSH Q8H PRN PRN Reason: Nausea and Vomiting Last Admin: 04/21/24 18:51 Dose: 4 mg Pharmacy Consult (Consult Rx Etoh Phenob Im/Po) 1 each MISCELLANE ONCE PRN; Protocol PRN Reason: Consult order Phenobarbital (Phenobarbital 30 Mg Tablet) 30 mg PO BID [facility] Stop: 04/25/24 09:01 Phenobarbital (Phenobarbital 15 Mg Tablet) 15 mg PO DAILY [facility] Stop: 04/27/24 09:01 Potassium Chloride (Potassium Chloride Er 20 Meq Tab.Er.Prt) 20 meq PO BID [facility] Last Admin: 04/23/24 08:05 Dose: 20 meq Propranolol HCl (Propranolol Hcl 20 Mg Tablet) 20 mg PO BID [facility]; Protocol Last Admin: 04/23/24 08:06 Dose: 20 mg Quetiapine Fumarate (Quetiapine Fumarate 200 Mg Tablet) 200 mg PO BEDTIME [facility] Last Admin: 04/22/24 20:02 Dose: 200 mg Sodium Chloride (0.9 % Sodium Chloride Flush 3 Ml Syringe) 3 ml IVFLUSH QSHIFT [facility] Last Admin: 04/23/24 08:44 Dose: 3 ml Allergies Allergies Allergy/AdvReac Type Severity Reaction Status Date / Time No Known Allergies Allergy Verified 04/19/24 21:34 Assessment & Plan Assessment & Plan (1) Opioid use disorder: Status: Acute Code(s): F11.90 - Opioid use, unspecified, uncomplicated Assessment and Plan: suboxone has been restarted. No need to continue COWS can change clonidine to PRN or d/c as he already has propranolol 20mg BID ordered likely for anxiety (2) Alcohol withdrawal: Status: Acute Code(s): F10.939 - Alcohol use, unspecified with withdrawal, unspecified Assessment and Plan: phenobarbitol protocol in place CIWA scores showing only anxiety (as reported by patient) continues to report anxiety sx, despite PRN medications and inability to remain awake (today). This is likely behavioral/chronic. PRN lorazepam only when absolutely needed as this can also contribute to altered mentation collateral information would be helpful in getting information about patient's baseline Total time managing care of this patient today _35___ minutes.
[2024-04-23 11:44] LABS: Anion Gap 13 (12-20); Blood Urea Nitrogen 6 mg/dL (9-16); Calcium 8.6 mg/dL (8.4-10.2); Carbon Dioxide 26 mmol/L (22-29); Chloride 106 mmol/L (96-108); Creatinine Clr Calc Pharmacy 167.8; Estimated Glomerular Filt Rate > 60; Glucose Random 90 mg/dL (60-115); Potassium 3.8 mmol/L (3.3-5.1); Sodium 141 mmol/L (135-145)
[2024-04-23 15:59] VITALS: BP 116/54; PULSE 76; RESP 19; TEMP 36.6; O2SAT 94
--- NOTE | 2024-04-23 16:19 | MHC.CM.PN ---
Pt very lethargic, was able to say that he does not have a PCP and that he is homeless. Per rounds today, care team to eval once medically stable. CM to follow for DC plan.
[2024-04-23 19:20] VITALS: BP 160/70; PULSE 75; RESP 16; TEMP 36.7; O2SAT 97
[2024-04-23] MEDS: PHENobarbitaL 30 MG TABLET PO (20:46)
[2024-04-23] MEDS: QUEtiapine Fumarate 200 MG TABLET PO (20:47)
[2024-04-23 23:58] VITALS: BP 134/83; PULSE 64; RESP 17; TEMP 36.9; O2SAT 96
[2024-04-24 04:00] VITALS: BP 135/65; PULSE 59; RESP 17; TEMP 36.7; O2SAT 95
[2024-04-24] MEDS: Ampicillin Sodium/Sulbactam Na 3 GM in 0.9 % Sodium Chloride 100 ML IV ×2 (04:24→11:13)
[2024-04-24 07:14] LABS: Creatinine Clr Calc Pharmacy 170.5; Estimated Glomerular Filt Rate > 60
[2024-04-24 07:26] VITALS: BP 120/57; PULSE 61; RESP 20; TEMP 36.6; O2SAT 98
[2024-04-24] MEDS: Propranolol HCL 20 MG TABLET PO ×2 (08:45→20:14)
[2024-04-24] MEDS: Enoxaparin Sodium 40 MG/0.4 ML SYRINGE SUBCUT (08:46)
[2024-04-24] MEDS: Magnesium Oxide 400 MG TABLET PO (08:46)
[2024-04-24] MEDS: PHENobarbitaL 30 MG TABLET PO ×2 (08:46→20:14)
[2024-04-24] MEDS: Potassium Chloride ER 20 MEQ TAB.ER.PRT PO (08:46)
[2024-04-24] MEDS: Acetaminophen 325 MG TABLET 650 MG PO ×2 (08:46→20:21)
[2024-04-24] MEDS: Escitalopram Oxalate 20 MG TABLET PO (08:46)
[2024-04-24] MEDS: cloNIDine HCL 0.1 MG TABLET PO ×3 (08:46→20:14)
[2024-04-24] MEDS: Buprenorphine/Naloxone 8/2 mg FILM 1 FILM SUBLINGUAL ×2 (08:46→20:14)
[2024-04-24] MEDS: 0.9 % Sodium Chloride Flush 3 ML SYRINGE IVFLUSH ×2 (08:46→11:46)
--- NOTE | 2024-04-24 09:53 | HO.PM.IMPN ---
Subjective Subjective Date of Service: 04/24/24 Review of Systems Follow up AMS still sleepy throughout the day states that he doesnt feel good Physical Exam Vital Signs: Vital Signs: Last Vital Signs Temp 97.9 F 04/24/24 07:26 Pulse 61 04/24/24 07:26 Resp 20 04/24/24 07:26 BP 120/57 L 04/24/24 07:26 Pulse Ox 98 04/24/24 07:26 O2 Del Method Room Air 04/24/24 07:26 O2 Flow Rate 2 04/22/24 03:47 BMI result Body Mass Index 32.5 Appearing in no acute distress lung sounds are clear to auscultation heart regular rate rhythm, clear S1, S2 positive bowel sounds, abdomen is soft, nontender neuro patient is alert x3, no focal deficits Objective Data Active Medications Acetaminophen (Acetaminophen 325 Mg Tablet) 650 mg PO Q6H PRN PRN Reason: Pain, Mild 1-3,fever,headache Last Admin: 04/24/24 08:46 Dose: 650 mg Documented By: KADEEM Acetaminophen (Acetaminophen Supp 650 Mg Supp.Rect) 650 mg AR Q6H PRN PRN Reason: Pain, Mild 1-3,fever,headache Buprenorphine/Naloxone (Buprenorphine/Naloxone 8/2 Mg Film) 1 film SUBLINGUAL BID [facility] Last Admin: 04/24/24 08:46 Dose: 1 film Documented By: KADEEM Calcium Carbonate (Calcium Carbonate 750 Mg Tab.Chew) 750 mg PO Q4H PRN PRN Reason: Heartburn Clonidine HCl (Clonidine Hcl 0.1 Mg Tablet) 0.1 mg PO TID [facility]; Protocol Last Admin: 04/24/24 08:46 Dose: 0.1 mg Documented By: KADEEM Enoxaparin Sodium (Enoxaparin Sodium 40 Mg/0.4 Ml Syringe) 40 mg SUBCUT DAILY [facility] Last Admin: 04/24/24 08:46 Dose: 40 mg Documented By: KADEEM Escitalopram Oxalate (Escitalopram Oxalate 20 Mg Tablet) 20 mg PO DAILY [facility] Last Admin: 04/24/24 08:46 Dose: 20 mg Documented By: KADEEM Ampicillin Sodium/Sulbactam (Sodium 3 gm/ Sodium Chloride) 100 mls @ 200 mls/hr IV Q6H [facility] Last Infusion: 04/24/24 05:03 Dose: Infused Documented By: DAVID Lorazepam (Lorazepam 1 Mg Tablet) 1 mg PO Q6H PRN PRN Reason: anxiety/restlessness Last Admin: 04/23/24 20:47 Dose: 1 mg Documented By: DAVID Magnesium Hydroxide (Milk Of Magnesia 30 Ml Oral.Susp) 30 ml PO DAILY PRN PRN Reason: Constipation Magnesium Oxide (Magnesium Oxide 400 Mg Tablet) 400 mg PO BIDPC [facility] Last Admin: 04/24/24 08:46 Dose: 400 mg Documented By: KADEEM Melatonin (Melatonin 3 Mg Tablet) 6 mg PO BEDTIME PRN PRN Reason: Insomnia Ondansetron HCl (Ondansetron Hcl 4 Mg/2 Ml Vial) 4 mg IVPUSH Q8H PRN PRN Reason: Nausea and Vomiting Last Admin: 04/21/24 18:51 Dose: 4 mg Documented By: KATHIE Pharmacy Consult (Consult Rx Etoh Phenob Im/Po) 1 each MISCELLANE ONCE PRN; Protocol PRN Reason: Consult order Phenobarbital (Phenobarbital 30 Mg Tablet) 30 mg PO BID [facility] Stop: 04/25/24 09:01 Last Admin: 04/24/24 08:46 Dose: 30 mg Documented By: KADEEM Phenobarbital (Phenobarbital 15 Mg Tablet) 15 mg PO DAILY [facility] Stop: 04/27/24 09:01 Potassium Chloride (Potassium Chloride Er 20 Meq Tab.Er.Prt) 20 meq PO BID [facility] Last Admin: 04/24/24 08:46 Dose: 20 meq Documented By: KADEEM Propranolol HCl (Propranolol Hcl 20 Mg Tablet) 20 mg PO BID [facility]; Protocol Last Admin: 04/24/24 08:45 Dose: 20 mg Documented By: KADEEM Quetiapine Fumarate (Quetiapine Fumarate 200 Mg Tablet) 200 mg PO BEDTIME [facility] Last Admin: 04/23/24 20:47 Dose: 200 mg Documented By: DAVID Sodium Chloride (0.9 % Sodium Chloride Flush 3 Ml Syringe) 3 ml IVFLUSH QSHIFT [facility] Last Admin: 04/24/24 08:46 Dose: 3 ml Documented By: KADEEM Labs 04/21/24 15:24 04/24/24 06:15 Labs: Laboratory Results - last 24 hr 04/23/24 04/24/24 11:04 06:15 Anion Gap 13 Estim Creat Clear Calc 167.8 170.5 Estimated GFR > 60 > 60 Random Glucose 90 Calcium 8.6 Assessment and Plan (1) Mood disorder: Status: Acute Plan 48-year-old male with pertinent history of polysubstance use disorder, alcohol use disorder, mood disorder who was brought to the emergency department for evaluation of altered mentation. General malaise pt states feeling unwell and tired likely still withdrawal symptoms no obvious infectious source, no fever Repeat CXR check UA repeat labs Acute toxic encephalopathy in a patient with polysubstance use disorder slowly improving Addiction Team following UDS positive for opiates, fentanyl, cocaine continue clonidine, ativan , suboxone Sepsis and acute hypoxemic respiratory failure due to aspiration pneumonia in the setting of above. Sepsis resolved Resuscitated with IV crystalloids. Lactic acid and blood culture negative continue IV Unasyn (Day 5) SI has sitter in room care team consultation when medically clear Acute lactic acidosis. Resolved due to sepsis Acute rhabdomyolysis. Resolved s/p IV crystalloid resuscitation Alcohol use disorder Phenobarb protocol initiated in the ER. Monitor CIWA. Hypokalemia. Resolved Repleted DVT prophylaxis: Lovenox Full code Quality Stroke Does the patient have a stroke diagnosis?: No VTE Prior VTE?: No VTE Risk Level:: Medical - moderate - high VTE Device Contraindication: Treatment Not Indicated VTE Drug Contraindication: N/A - Med Ordered
--- NOTE | 2024-04-24 11:35 | PC.NURSE ---
Patient refusing bloodwork. Phlebotomy missed x2. Aylin Espinoza NP aware.
--- NOTE | 2024-04-24 11:43 | MHC.RECOVRN ---
T/W visited with pt. in to provide support. Pt awakening more easily to voice. Reports his suboxone is managing he OUD effectively but feels that the ETOH W/D medication is not as effective as it was . He is reporting increased anxiety presenting as racing thoughts and heart palpitations. I case conference with Latoya Jones NP and discussed with the pt. his previous LOC and because he was sedated for so long, that med changes at this time were not beneficial. I did educated him on the meds currently available to him for anxiety including ativan and he requested. T/W passed this along to pt's RN Tammi Pt was also provided with non pharm. anxiety interventions. T/W available as needed. Will continue to provide support during hosptal stay.
[2024-04-24] MEDS: LORazepam 1 MG TABLET PO ×2 (11:46→20:21)
--- NOTE | 2024-04-24 13:29 | PC.NURSE ---
Patient requesting to leave AMA, per Aylin Espinoza NP patient cannot go until cleared via Crisis/care team. Relayed this to patient. He's since pulled his IV out and got dressed. Security called to deescalate situation. Patient redirectable at this time.
--- NOTE | 2024-04-24 13:51 | PC.NURSE ---
Crisis/ care team at bedside at [facility] time.
--- NOTE | 2024-04-24 14:04 | P.DS_ITS ---
DS: Providers Provider Date of Service: 04/24/24 Date of admission: 04/20/24 05:10 Date of discharge: 04/24/24 Primary care physician: None Physician Consults: 04/20/24 07:33 Addiction Medicine Routine Consulting Provider: Addiction Covering Reason for consultation: polysubstance use Has provider been notified: No 04/20/24 09:03 Consult to Critical Care Routine Consulting Provider: Nirav Long Reason for consultation: encephalopathy, withdrawal Has provider been notified: Yes 04/21/24 12:59 Consult to Wound Care Routine Reason for consultation: fluid filled blister to right inner heel 04/24/24 11:53 Inpt CARE Team Crisis Consult Routine Comment: Reason for consultation: medically clear DS: Diagnosis Discharge Diagnosis (1) Mood disorder: Status: Acute DS: Summary Hospital Course Hospital Course: History and physical as per admitting provider. This is a 48-year-old male with pertinent history of polysubstance use disorder, alcohol use disorder, mood disorder who was brought to the emergency department for evaluation of altered mentation. Unable to obtain history from the patient. Patient is sedated in the ER and non conversational. Eye opening to painful stimulus present. Patient apparently was found in a parking lot where he had been altered/unconscious for 2 days. He was brought in the ER by PD. He admitted to relapsing on cocaine and alcohol area. Patient was combative in the ER and was sedated. He was found to be septic and imaging concerning for pneumonia. Patient also requiring supplemental oxygen in the emergency department. Unable to obtain review of systems. Acute toxic encephalopathy in a patient with polysubstance use disorder. UDS positive for opiates, fentanyl, cocaine. Improved slowly over a few days. Tr eated with Clonidine, ativan, suboxone. Seen by Addiction Team Sepsis and acute hypoxemic respiratory failure due to aspiration pneumonia in the setting of above. Sepsis resolved. Resuscitated with IV crystalloids. Lactic acid and blood culture negative. Treated with Unasyn for 5 days General malaise. no obvious signs of infection, declined repeat lab work. No fever or leukocytosis . CXR neg for consolidation or effusion. Symptoms likely secondary to withdrawal symptoms. SI. has sitter in room. care team consultation > [facility]PLOC Acute lactic acidosis. Resolved . due to sepsis Acute rhabdomyolysis. Secondary to overdose. Resolved. s/p IV crystalloid resuscitation Alcohol use disorder. Treated with Phenobarbitol Hypokalemia. Resolved after repletion Time Attestation Discharge Coordination Time (in mins): 42 Quality: Safe Use of Opioids Does Pt have an Active Cancer Diagnosis on the Problem List?: No Quality: Stroke Does the patient have a stroke diagnosis?: No Physical Exam Vital Signs: Vital Signs: Last Vital Signs Temp 97.9 F 04/24/24 07:26 Pulse 61 04/24/24 07:26 Resp 20 04/24/24 07:26 BP 120/57 L 04/24/24 07:26 Pulse Ox 98 04/24/24 07:26 O2 Del Method Room Air 04/24/24 07:26 O2 Flow Rate 2 04/22/24 03:47 BMI result Body Mass Index 32.5 Appearing in no acute distress head is normocephalic atraumatic eyes pupils are PERRLA sclera is anicteric mouth throat mucous membranes are intact and moist neck is supple no lymphadenopathy, no JVD noted lung sounds are clear to auscultation heart regular rate rhythm, clear S1, S2 positive bowel sounds, abdomen is soft, nontender neuro patient is alert x3, no focal deficits DS: Data Data Completed and Pending Labs on day of discharge: Laboratory Results - last 24 hr 04/24/24 06:15 Creatinine 0.61 Estim Creat Clear Calc 170.5 Estimated GFR > 60 Preliminary micro results at discharge 04/19/24 21:31 Blood Culture - Preliminary Blood - Venous No growth after 48 hours. 04/19/24 21:31 Blood Culture - Preliminary Blood - Venous No growth after 48 hours. Discharge Plan Discharge Anticipated Discharge Date/Time: 04/24/24 15:11 Patient Disposition: Xfer Psychiatric Hosp Discharge Diagnosis: Acute toxic metabolic encephalopathy Polysubstance use disorder Sepsis Acute hypoxemic respiratory failure Aspiration pneumonia Suicidal ideation Acute lactic acidosis Acute rhabdomyolysis Alcohol use disorder Discharge Medications: New amoxicillin-pot clavulanate 875-125 mg tablet 1 tab PO BID Qty: 4 0RF Continued quetiapine 200 mg tablet 200 mg PO BEDTIME dextroamphetamine-amphetamine 20 mg tablet 1 tab PO BID@0900,1400 propranolol 20 mg tablet 20 mg PO BID escitalopram oxalate 20 mg tablet 20 mg PO DAILY lisdexamfetamine [Vyvanse] 60 mg capsule 60 mg PO DAILY buprenorphine-naloxone [Suboxone] 8-2 mg film 1 film sublingual BID Discharge Orders: Discharge Order (Routine); Ordered 04/24/24 Ordered By: Aylin Espinoza Diet: Advance to usual diet Activity on Discharge: As tolerated Stand Alone Forms: Patient Portal Discharge page Print Language: Georgian Care Plan Goals: Do not use drugs or alcohol, seek outpatient assistance for help with this Complete antibiotic course Health Concerns: Acute toxic metabolic encephalopathy Polysubstance use disorder Sepsis Acute hypoxemic respiratory failure Aspiration pneumonia Suicidal ideation Acute lactic acidosis Acute rhabdomyolysis Alcohol use disorder Plan of Treatment: Follow-up with primary care provider as needed Take all medications as prescribed Assessment: See discharge summary
[2024-04-24 14:39] LABS: Hematocrit 39.6 % (42.0-52.0); Mean Corpuscular HGB Conc 32.8 g/dl (31.0-36.0); Mean Corpuscular Hemoglobin 27.6 pg (27.0-33.0); Mean Corpuscular Volume 84.1 fL (80.0-98.0); Mean Platelet Volume 9.4 fL (9.4-12.4); Platelet Count 378 X10*3/uL (160-400); Red Blood Count 4.71 X10*6/uL (4.60-5.80); Red Cell Distribution Width 15.9 % (11.0-16.0); White Blood Count 6.9 X10*3/uL (4.8-10.8)
[2024-04-24] MEDS: Haloperidol Lactate 5 MG/ML VIAL 2.5 MG IM (15:04)
--- NOTE | 2024-04-24 15:07 | PC.NURSE ---
Crisis in to tell patient he will be transferred to inpatient psych eventually. Patient agitated and pacing at this time, offered to get something for anxiety- agreeable to haldol IM at this time.
[2024-04-24 15:10] LABS: Anion Gap 13 (12-20); Blood Urea Nitrogen 7 mg/dL (9-16); Calcium 8.9 mg/dL (8.4-10.2); Carbon Dioxide 25 mmol/L (22-29); Chloride 106 mmol/L (96-108); Creatinine Clr Calc Pharmacy 150.8; Estimated Glomerular Filt Rate > 60; Glucose Random 106 mg/dL (60-115); Potassium 4.7 mmol/L (3.3-5.1); Sodium 139 mmol/L (135-145)
[2024-04-24 15:33] VITALS: BP 132/62; PULSE 66; RESP 18; TEMP 37.1; O2SAT 95
--- NOTE | 2024-04-24 15:43 | MHC.CM.PN ---
PT MEDICALLY CLEARED FOR DC, PER IDA PT [facility] BED SEARCH, ANTIC PT WILL TRANSF[place] [facility], [facility] [place].
--- NOTE | 2024-04-24 16:29 | P.PNIM_ITS ---
Subjective Subjective Date of Service: 04/24/24 Review of Systems Follow up AMS still sleepy throughout the day states that he doesnt feel good Physical Exam 2 Vital Signs: Vital Signs: Last Vital Signs Temp 98.8 F 04/24/24 15:33 Pulse 66 04/24/24 15:33 Resp 18 04/24/24 15:33 BP 132/62 04/24/24 15:33 Pulse Ox 95 04/24/24 15:33 O2 Del Method Room Air 04/24/24 15:33 O2 Flow Rate 2 04/22/24 03:47 BMI result Body Mass Index 32.5 Appearing in no acute distress lung sounds are clear to auscultation heart regular rate rhythm, clear S1, S2 positive bowel sounds, abdomen is soft, nontender neuro patient is alert x3, no focal deficits Objective Data Active Medications Acetaminophen (Acetaminophen 325 Mg Tablet) 650 mg PO Q6H PRN PRN Reason: Pain, Mild 1-3,fever,headache Last Admin: 04/24/24 08:46 Dose: 650 mg Documented By: KADEEM Acetaminophen (Acetaminophen Supp 650 Mg Supp.Rect) 650 mg MT Q6H PRN PRN Reason: Pain, Mild 1-3,fever,headache Amoxicillin/Clavulanate Potassium (Amoxicillin/Potassium Clav 875 Mg Tablet) 875 mg PO Q12H [facility] Buprenorphine/Naloxone (Buprenorphine/Naloxone 8/2 Mg Film) 1 film SUBLINGUAL BID [facility] Last Admin: 04/24/24 08:46 Dose: 1 film Documented By: KADEEM Calcium Carbonate (Calcium Carbonate 750 Mg Tab.Chew) 750 mg PO Q4H PRN PRN Reason: Heartburn Clonidine HCl (Clonidine Hcl 0.1 Mg Tablet) 0.1 mg PO TID [facility]; Protocol Last Admin: 04/24/24 15:02 Dose: 0.1 mg Documented By: KADEEM Enoxaparin Sodium (Enoxaparin Sodium 40 Mg/0.4 Ml Syringe) 40 mg SUBCUT DAILY [facility] Last Admin: 04/24/24 08:46 Dose: 40 mg Documented By: KADEEM Escitalopram Oxalate (Escitalopram Oxalate 20 Mg Tablet) 20 mg PO DAILY [facility] Last Admin: 04/24/24 08:46 Dose: 20 mg Documented By: KADEEM Haloperidol Lactate (Haloperidol Lactate 5 Mg/Ml Vial) 2.5 mg IM Q4H PRN PRN Reason: agitation Last Admin: 04/24/24 15:04 Dose: 2.5 mg Documented By: KADEEM Lorazepam (Lorazepam 1 Mg Tablet) 1 mg PO Q8H PRN PRN Reason: anxiety/restlessness Last Admin: 04/24/24 11:46 Dose: 1 mg Documented By: KADEEM Magnesium Hydroxide (Milk Of Magnesia 30 Ml Oral.Susp) 30 ml PO DAILY PRN PRN Reason: Constipation Melatonin (Melatonin 3 Mg Tablet) 6 mg PO BEDTIME PRN PRN Reason: Insomnia Ondansetron HCl (Ondansetron Hcl 4 Mg/2 Ml Vial) 4 mg IVPUSH Q8H PRN PRN Reason: Nausea and Vomiting Last Admin: 04/21/24 18:51 Dose: 4 mg Documented By: KATHIE Pharmacy Consult (Consult Rx Etoh Phenob Im/Po) 1 each MISCELLANE ONCE PRN; Protocol PRN Reason: Consult order Phenobarbital (Phenobarbital 30 Mg Tablet) 30 mg PO BID [facility] Stop: 04/25/24 09:01 Last Admin: 04/24/24 08:46 Dose: 30 mg Documented By: KADEEM Phenobarbital (Phenobarbital 15 Mg Tablet) 15 mg PO DAILY [facility] Stop: 04/27/24 09:01 Propranolol HCl (Propranolol Hcl 20 Mg Tablet) 20 mg PO BID [facility]; Protocol Last Admin: 04/24/24 08:45 Dose: 20 mg Documented By: KADEEM Quetiapine Fumarate (Quetiapine Fumarate 200 Mg Tablet) 200 mg PO BEDTIME [facility] Last Admin: 04/23/24 20:47 Dose: 200 mg Documented By: DAVID Sodium Chloride (0.9 % Sodium Chloride Flush 3 Ml Syringe) [facility] Last Admin: 04/24/24 11:46 Dose: 3 ml Documented By: KADEEM Labs 04/24/24 14:23 04/24/24 14:23 Labs: Laboratory Results - last 24 hr 04/24/24 04/24/24 06:15 14:23 MCV 84.1 MCH 27.6 MCHC 32.8 RDW 15.9 Plt Count 378 D MPV 9.4 Absolute Nucleated RBC 0.000 Nucleated RBC % (auto) 0.0 Anion Gap 13 Estim Creat Clear Calc 170.5 150.8 Estimated GFR > 60 > 60 Random Glucose 106 Calcium 8.9 Magnesium 2.0 Assessment and Plan (1) Mood disorder: Status: Acute Plan 48-year-old male with pertinent history of polysubstance use disorder, alcohol use disorder, mood disorder who was brought to the emergency department for evaluation of altered mentation. SI now denies has sitter in room care team consultation>rec IPLOC, waiting on psych eval to determine if in fact he will go to vs dc home General malaise. Resolved pt stated feeling unwell and tired likely still withdrawal symptoms no obvious infectious source, no fever Repeat CXR neg repeat labs wnl Acute toxic encephalopathy in a patient with polysubstance use disorder. More awake Addiction Team following UDS positive for opiates, fentanyl, cocaine continue clonidine, ativan , suboxone Sepsis and acute hypoxemic respiratory failure due to aspiration pneumonia in the setting of above. Sepsis resolved Resuscitated with IV crystalloids. Lactic acid and blood culture negative continue IV Unasyn (Day 5) SI has sitter in room care team consultation when medically clear Acute lactic acidosis. Resolved due to sepsis Acute rhabdomyolysis. Resolved s/p IV crystalloid resuscitation Alcohol use disorder Phenobarb protocol Monitor CIWA. Hypokalemia. Resolved Repleted DVT prophylaxis: Lovenox Full code Quality Stroke Does the patient have a stroke diagnosis?: No VTE Prior VTE?: No VTE Risk Level:: Medical - moderate - high VTE Device Contraindication: Treatment Not Indicated VTE Drug Contraindication: N/A - Med Ordered
--- NOTE | 2024-04-24 17:44 | HO.WOUND ---
Wound Consult: Initial 49yr old?male admitted to [facility] on 04/20/24 - See progress notes and H&P for detailed history.? Wound consult placed for Right Heel Blister.? Patient agreeable to assessment and photo documentation.? Patient was agreeable but expressed frustration. Bilateral feet were assessed - the left inner heel was noted for loose serous filled blister. No oozing, no erythema noted. There are various areas of purple pigmentation and scabs not consistent with pressure. The patient was questioned if these were related to injection sites - he reported no. Swelling noted, warm to touch patient not able to report if the swelling is his baseline. Etiology is not clear at this time. Topical recommendation are to wash feet and keep clean. Areas of dried scab and erythema I would recommend paint with betadine and leave REMI. The blister appears to be resolving - I would recommend skin prep and Bandaid to protect from friction. Left foot Right Foot Recommendations: 1. Bilateral Feet - Cleanse with soap and water, dry well. [employer] scabs with betadine leave [employer]. The left inner heel blister apply skin prep and cover with bandaid to protect from friction. Re-consult wound care Nurse for wound deterioration or wound changes.
[2024-04-24 20:00] VITALS: BP 137/63; PULSE 72; RESP 18; TEMP 36.6; O2SAT 97
[2024-04-24] MEDS: Amoxicillin/Potassium Clav 875 MG TABLET PO (20:14)
[2024-04-24 21:08] LABS: Appearance Urine Clear; Color Urine Yellow; Glucose Urine UA Negative (Negative); Leukocyte Esterase Urine Negative (Negative); Nitrite Urine Negative (Negative); PH 8.5 (5.0-9.0); Specific Gravity - Urine 1.015 (1.005-1.025); Urine Blood Negative (Negative); Urine Ketones Negative (Negative); Urine Protein Negative (Neg-Trace)
[2024-04-24] MEDS: QUEtiapine Fumarate 200 MG TABLET PO (23:21)
[2024-04-25 04:00] VITALS: BP 133/69; PULSE 66; RESP 16; TEMP 36.9; O2SAT 97
[2024-04-25 06:53] VITALS: BP 140/76; PULSE 65; RESP 15; TEMP 37.4
[2024-04-25 09:39] VITALS: BP 140/76
[2024-04-25] MEDS: PHENobarbitaL 30 MG TABLET PO (09:39)
[2024-04-25] MEDS: cloNIDine HCL 0.1 MG TABLET PO (09:39)
[2024-04-25] MEDS: Escitalopram Oxalate 20 MG TABLET PO (09:39)
[2024-04-25] MEDS: Amoxicillin/Potassium Clav 875 MG TABLET PO (09:39)
[2024-04-25 09:40] VITALS: BP 140/76; PULSE 65
[2024-04-25] MEDS: Propranolol HCL 20 MG TABLET PO (09:40)
[2024-04-25] MEDS: Enoxaparin Sodium 40 MG/0.4 ML SYRINGE SUBCUT (09:40)
[2024-04-25] MEDS: Buprenorphine/Naloxone 8/2 mg FILM 1 FILM SUBLINGUAL (09:40)
[2024-04-25] MEDS: LORazepam 1 MG TABLET PO (09:41)
--- NOTE | 2024-04-25 11:41 | MHC.CM.PN ---
Addendum entered by Minna Ravi RN 04/25/24 14:00: PER PSYCH PT CLEAR[facility], PT GIVEN 2 BUS TICKETS. Original Note: PT DID NOT DC YESTERDAY TO [facility] D/T PSYCHIATRIST WANTING TO MEET W/PT PRIOR TO AGREEING TO ADMISSION, CM WILL CONT TO FOLLOW.
--- NOTE | 2024-04-25 11:43 | PM.DS ---
DS: Providers Provider Date of Service: 04/25/24 Date of admission: 04/20/24 05:10 Date of discharge: 04/25/24 Primary care physician: None Physician Attending physician on admission: Shakira Gannon Consults: 04/20/24 07:33 Addiction Medicine Routine Consulting Provider: Addiction Covering Reason for consultation: polysubstance use Has provider been notified: No 04/20/24 09:03 Consult to Critical Care Routine Consulting Provider: Nirav Long Reason for consultation: encephalopathy, withdrawal Has provider been notified: Yes 04/21/24 12:59 Consult to Wound Care Routine Reason for consultation: fluid filled blister to right inner heel 04/24/24 11:53 Inpt CARE Team Crisis Consult Routine Comment: Reason for consultation: medically clear 04/24/24 16:06 Consult to Psychiatry Routine Consulting Provider: [facility] Psych Covering Reason for consultation: SI Attending physician on discharge: Teo Brice Discharging clinician: Chanelle Larson DS: Diagnosis Discharge Diagnosis (1) Mood disorder: Status: Acute DS: Summary Hospital Course Hospital Course: History and physical as per admitting provider. This is a 48-year-old male with pertinent history of polysubstance use disorder, alcohol use disorder, mood disorder who was brought to the emergency department for evaluation of altered mentation. Unable to obtain history from the patient. Patient is sedated in the ER and non conversational. Eye opening to painful stimulus present. Patient apparently was found in a parking lot where he had been altered/unconscious for 2 days. He was brought in the ER by PD. He admitted to relapsing on cocaine and alcohol area. Patient was combative in the ER and was sedated. He was found to be septic and imaging concerning for pneumonia. Patient also requiring supplemental oxygen in the emergency department. Unable to obtain review of systems. Acute toxic encephalopathy in a patient with polysubstance use disorder. UDS positive for opiates, fentanyl, cocaine. Improved slowly over a few days. Treated with Clonidine, ativan, suboxone. Seen by Addiction Team Sepsis and acute hypoxemic respiratory failure due to aspiration pneumonia in the setting of above. Sepsis resolved. Resuscitated with IV crystalloids. Lactic acid and blood culture negative. Treated with Unasyn for 5 days General malaise. no obvious signs of infection, declined repeat lab work. No fever or leukocytosis . CXR neg for consolidation or effusion. Symptoms likely secondary to withdrawal symptoms. SI. has sitter in room. care team consultation > IPLOC. E evaluated by Psychiatry who did not feel inpatient level of care was indicated given absence of suicidality. The patient should continue on his current medications for depression and anxiety as scheduled follow-up soon with his outpatient psychiatry at [place] as well as his therapist. Acute lactic acidosis. Resolved . due to severe sepsis Acute rhabdomyolysis. Secondary to overdose. Resolved. s/p IV crystalloid resuscitation Alcohol use disorder. Treated with Phenobarbitol Hypokalemia. Resolved after repletion Time Attestation Discharge Coordination Time (in mins): 35 Quality: Safe Use of Opioids Does Pt have an Active Cancer Diagnosis on the Problem List?: No Quality: Stroke Does the patient have a stroke diagnosis?: No Physical Exam Vital Signs: Vital Signs: Last Vital Signs Temp 99.4 F 04/25/24 06:53 Pulse 65 04/25/24 09:40 Resp 15 04/25/24 06:53 BP 140/76 H 04/25/24 09:40 Pulse Ox 97 04/25/24 04:00 O2 Del Method Room Air 04/25/24 06:53 O2 Flow Rate 2 04/22/24 03:47 BMI result Body Mass Index 32.5 DS: Data Data Completed and Pending Labs on day of discharge: Laboratory Results - last 24 hr 04/24/24 04/24/24 14:23 20:37 WBC 6.9 RBC 4.71 Hgb 13.0 L Hct 39.6 L MCV 84.1 MCH 27.6 MCHC 32.8 RDW 15.9 Plt Count 378 D MPV 9.4 Absolute Nucleated RBC 0.000 Nucleated RBC % (auto) 0.0 Sodium 139 Potassium 4.7 D Chloride 106 Carbon Dioxide 25 Anion Gap 13 BUN 7 L Creatinine 0.69 Estim Creat Clear Calc 150.8 Estimated GFR > 60 Random Glucose 106 Calcium 8.9 Magnesium 2.0 Urine Color Yellow Urine Appearance Clear Urine pH 8.5 Ur Specific [place] 1.015 Urine Protein Negative Urine Glucose (UA) Negative Urine Ketones Negative Urine Blood Negative Urine Nitrite Negative Ur Leukocyte Esterase Negative Discharge Plan Discharge Anticipated Discharge Date/Time: 04/24/24 15:11 Patient Disposition: Xfer Psychiatric Hosp Discharge Diagnosis: Acute toxic metabolic encephalopathy Polysubstance use disorder Sepsis Acute hypoxemic respiratory failure Aspiration pneumonia Suicidal ideation Acute lactic acidosis Acute rhabdomyolysis Alcohol use disorder Discharge Medications: New amoxicillin-pot clavulanate 875-125 mg tablet 1 tab PO BID Qty: 4 0RF Continued quetiapine 200 mg tablet 200 mg PO BEDTIME dextroamphetamine-amphetamine 20 mg tablet 1 tab PO BID@0900,1400 propranolol 20 mg tablet 20 mg PO BID escitalopram oxalate 20 mg tablet 20 mg PO DAILY lisdexamfetamine [Vyvanse] 60 mg capsule 60 mg PO DAILY buprenorphine-naloxone [Suboxone] 8-2 mg film 1 film sublingual BID Discharge Orders: Discharge Order (Routine); Ordered 04/24/24 Ordered By: Aylin Espinoza Diet: Advance to usual diet Activity on Discharge: As tolerated Stand Alone Forms: Patient Portal Discharge page Print Language: Croatian Care Plan Goals: Do not use drugs or alcohol, seek outpatient assistance for help with this Complete antibiotic course Health Concerns: Acute toxic metabolic encephalopathy Polysubstance use disorder Sepsis Acute hypoxemic respiratory failure Aspiration pneumonia Suicidal ideation Acute lactic acidosis Acute rhabdomyolysis Alcohol use disorder Plan of Treatment: Follow-up with primary care provider as needed Take all medications as prescribed. Follow up with psychiatry for further medication management for depression and anxiety per psychiatry in the hospital Schedule follow up with your therapist Assessment: See discharge summary
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
== END 2024-04-25 14:06 | disposition home or self-care (01) | DRG 812 ==
LOC: HO.ED 04-20 04:47 → HO.EDOVER 04-20 05:25 → HO.IMC 04-20 07:59
PROVIDERS: Nurse Practitioner Acute Care; Physician Assistant Medical; Admitting Provider Student in an Organized Health Care Education/Training Program; Emergency Provider Emergency Medicine; Visit Provider Physician Assistant
DX: T50.911A Poisoning by multiple unspecified drugs, medicaments and biological substances, accidental (unintentional), initial encounter (principal); J69.0 Pneumonitis due to inhalation of food and vomit; G92.8 Other toxic encephalopathy; M62.82 Rhabdomyolysis; F10.139 Alcohol abuse with withdrawal, unspecified; F19.10 Other psychoactive substance abuse, uncomplicated; E87.21 Acute metabolic acidosis; E87.6 Hypokalemia; R45.851 Suicidal ideations; F39 Unspecified mood [affective] disorder; Z71.51 Drug abuse counseling and surveillance of drug abuser; F14.20 Cocaine dependence, uncomplicated; Z79.899 Other long term (current) drug therapy
CPT/HCPCS: 0241U; 36415; 36600; 70450; 71045; 71250; 72125; 73130; 74176; 76882; 80048; 80053; 80076; 80143; 80179; 80202; 80307; 81001; 81003; 82040; 82140; 82550; 82565; 82803; 82947; 83605; 83735; 84100; 84478; 84484; 85025; 85027; 85610; 87040; 93005; 93970; 94002; 94003; 94799; 99285; J0295; J0613; J0696; J1200; J1630; J1650; J1885; J1940; J1953; J2060; J2250; J2251; J2359; J2405; J2470; J2560; J2704; J3010; J3360; J3370; J3371; J3411; J3480; J7120; P9047; S9485

== ENCOUNTER → 2024-04-19 21:40 | Outpatient (BNV) | payer MEDICAID, SELFPAY | PROVIDERS: Emergency Provider Emergency Medicine; Visit Provider Radiology Diagnostic Radiology | DX: S39.91XA Unspecified injury of abdomen, initial encounter (principal); R91.8 Other nonspecific abnormal finding of lung field; S19.9XXA Unspecified injury of neck, initial encounter; S09.90XA Unspecified injury of head, initial encounter | CPT/HCPCS: 70450; 71250; 72125; 74176 ==

== ENCOUNTER → 2024-04-19 22:10 | Outpatient (BNV) | payer MEDICAID, SELFPAY | PROVIDERS: Admitting Provider Student in an Organized Health Care Education/Training Program; Emergency Provider Emergency Medicine; Visit Provider Internal Medicine Cardiovascular Disease | DX: R41.82 Altered mental status, unspecified (principal); R94.31 Abnormal electrocardiogram [ECG] [EKG] | CPT/HCPCS: 93010 ==

== ENCOUNTER → 2024-04-20 00:30 | Outpatient (BNV) | payer MEDICAID, SELFPAY | PROVIDERS: Emergency Provider Emergency Medicine; Visit Provider Radiology Diagnostic Radiology | DX: R22.31 Localized swelling, mass and lump, right upper limb (principal); R06.9 Unspecified abnormalities of breathing | CPT/HCPCS: 71045; 73130; 93970 ==

== ENCOUNTER → 2024-04-20 01:25 | Outpatient (BNV) | payer MEDICAID, SELFPAY | PROVIDERS: Emergency Provider Emergency Medicine; Visit Provider Student in an Organized Health Care Education/Training Program | DX: J96.01 Acute respiratory failure with hypoxia (principal); J18.9 Pneumonia, unspecified organism; F39 Unspecified mood [affective] disorder | CPT/HCPCS: 99223; 99232; 99239; 99499 ==

== ENCOUNTER 2024-04-20 05:10 | Outpatient (BNV) | payer MEDICAID, SELFPAY | END 2024-04-24 10:00 | PROVIDERS: Admitting Provider Student in an Organized Health Care Education/Training Program; Emergency Provider Emergency Medicine; Visit Provider Radiology Diagnostic Radiology | DX: R05.9 Cough, unspecified (principal) | CPT/HCPCS: 71045 ==

== ENCOUNTER → 2024-04-20 05:10 | Outpatient (BNV) | payer MEDICAID, SELFPAY | PROVIDERS: Admitting Provider Student in an Organized Health Care Education/Training Program; Emergency Provider Emergency Medicine; Visit Provider Internal Medicine Pulmonary Disease | DX: F19.10 Other psychoactive substance abuse, uncomplicated (principal); M62.82 Rhabdomyolysis | CPT/HCPCS: 99222 ==

== ENCOUNTER → 2024-04-20 05:10 | Outpatient (BNV) | payer MEDICAID, SELFPAY | PROVIDERS: Admitting Provider Student in an Organized Health Care Education/Training Program; Emergency Provider Emergency Medicine; Visit Provider Nurse Practitioner Psychiatric/Mental Health | DX: F10.939 Alcohol use, unspecified with withdrawal, unspecified (principal); F11.90 Opioid use, unspecified, uncomplicated | CPT/HCPCS: 99232 ==

== ENCOUNTER → 2024-04-20 05:10 | Outpatient (BNV) | payer OTHER, SELFPAY | PROVIDERS: Admitting Provider Student in an Organized Health Care Education/Training Program; Emergency Provider Emergency Medicine; Visit Provider Social Worker | DX: F39 Unspecified mood [affective] disorder (principal); F10.20 Alcohol dependence, uncomplicated; F14.20 Cocaine dependence, uncomplicated; F11.90 Opioid use, unspecified, uncomplicated | CPT/HCPCS: 99232 ==

== ENCOUNTER 2024-04-30 04:58 | Inpatient (IN) | payer MEDICAID, SELFPAY ==
[2024-04-30] VITALS (10 sets, daily range): BP systolic 125–163; BP diastolic 56–81; PULSE 64–94; RESP 12–20; TEMP 37.2–38.2; O2SAT 94–100; BMI 28.7; BMI 26.4
--- NOTE | ~2024-04-30 | CT_ITS ---
EXAMINATION: CT CERVICAL SPINE WITHOUT IV CONTRAST HISTORY: AMS, ? fall. TECHNIQUE: Helical CT of the cervical spine was performed per standard departmental protocol. Coronal and sagittal reformatted images were also evaluated. One or more of the following techniques was used for dose reduction: Automated exposure control, adjustment of the mA and/or kV according to patient size, use of iterative reconstruction technique. DLP: 528.78 mGy-cm COMPARISON: Comparison is made with the prior examination dated 04/19/2024. FINDINGS: CERVICAL SPINE: The vertebral bodies maintain normal height and alignment without evidence of fracture or subluxation. There is diffuse moderate degenerative disc disease with disc space narrowing and osteophyte formation. There is diffuse facet osteoarthritis and uncovertebral joint hypertrophy causing multilevel bilateral neural foraminal stenosis. Evaluation for disc pathology is limited by lack of intrathecal contrast material, however. BRAIN: The visualized portion of the brain is unremarkable. SINUSES: The visualized paranasal sinuses, mastoid air cells and middle ear cavities are unremarkable. LUNG APICES: The visualized lung apices are clear. SOFT TISSUES: The visualized paraspinal soft tissues are unremarkable. CT/CT cervical spine wo IV con IMPRESSION: No evidence of fracture or malalignment of the cervical spine. Electronically signed by: Demond Williamson MD 04/30/2024 12:32 PM EDT
--- NOTE | ~2024-04-30 | CT_ITS ---
EXAMINATION: CT HEAD WITHOUT IV CONTRAST HISTORY: AMS. TECHNIQUE: Unenhanced helical CT of the head was performed per standard departmental protocol. Coronal and sagittal reformats of the head were also evaluated. One or more of the following techniques was used for dose reduction: Automated exposure control, adjustment of the mA and/or kV according to patient size, use of iterative reconstruction technique. DLP: 812.80 mGy-cm COMPARISON: Comparison is made with the prior examination dated 04/19/2024. FINDINGS: BRAIN: The brain parenchyma is unremarkable. There is normal pennington/white differentiation. The ventricular system is normal in size and configuration. There is no mass effect or midline shift. No intra- or extra-axial fluid collections are identified. SINUSES: The visualized paranasal sinuses are clear. The mastoid air cells and middle ear cavities are well pneumatized. ORBITS: The visualized orbits are unremarkable. BONES/SOFT TISSUES: The extracranial soft tissues are unremarkable. The calvarium is intact. No suspicious lytic or sclerotic lesions. CT/CT head/brain wo IV con IMPRESSION: No acute intracranial abnormality. Electronically signed by: Demond Williamson MD 04/30/2024 12:27 PM EDT
--- NOTE | ~2024-04-30 | XR_ITS ---
CLINICAL HISTORY: Line placement 1 view chest x-ray. Comparison: 04/30/2024 Findings: Enteric tube identified coursing below the diaphragm with the distal tip projecting over the upper abdomen just to the left of the midline, at the expected location of the mid stomach. Right internal jugular central venous catheter in place with visualization of the distal tip to the level of the superior right atrium. The distal tip is not well visualized on this exam. Endotracheal tube in place with the distal tip 2.5 cm above the bridger. No consolidation, pneumothorax, or left pleural effusion. Minimal blunting of the right costophrenic angle present. The Heart size normal. Impression: 1. Support lines and tubes in place as described above. No pneumothorax identified. No focal pulmonary consolidation. 2. Possible minimal right pleural effusion versus artifact related to overlapping bones near the right costophrenic angle. This document has been electronically signed by: Malik Acuna MD on 05/01/2024 03:03:14
--- NOTE | ~2024-04-30 | XR_ITS ---
EXAMINATION: XR CHEST 1 VIEW HISTORY: altered mental status COMPARISON: Comparison is made with the prior examination dated 04/24/2024. FINDINGS: Two AP portable views of the chest performed at 8:56 AM are submitted. There are low lung volumes. The lungs are clear. There is no pleural effusion, pneumothorax, or pulmonary vascular congestion. The heart is normal in size. There is degenerative disc disease of the spine. XR/XR chest 1V IMPRESSION: Low lung volumes. No acute cardiopulmonary abnormality. Electronically signed by: Demond Williamson MD 04/30/2024 10:07 AM EDT
--- NOTE | ~2024-04-30 | US_ITS ---
EXAMINATION: Ultrasound extremity nonvascular limited. CLINICAL INFORMATION: Swelling concerning abscess, left forearm. TECHNIQUE: Real-time grayscale and color Doppler ultrasound and with a linear transducer in the region of concern of the left forearm.. COMPARISON: None FINDINGS: There is a 2.9 x 2.6 x 0.8 cm irregular anechoic abnormality within the fat planes of the mid forearm no flow on color Doppler interrogation within the abnormality just peripheral. US/US extremity nonvascular glover IMPRESSION: 2.9 x 2.6 x 0.8 cm phlegmon versus abscess, mid left forearm. Electronically signed by: Martin Melvin MD 05/01/2024 10:58 AM EDT
--- NOTE | 2024-04-30 05:20 | MHC.EDTECH ---
patient changed over and belongings placed in shelf two of [facility]
--- NOTE | 2024-04-30 06:30 | ED_ITS ---
HPI - General Adult General Chief complaint: ETOH/Substance Use Stated complaint: Polysubstance PCP?, A&O zero, Time Seen by Provider: 04/30/24 06:27 Source: patient, EMS, RN notes reviewed and old records reviewed Mode of arrival: EMS Limitations: altered mental status History of Present Illness ED Provider: Precious CRAVEN narrative: Patient is a 49-year-old male with history of polysubstance use disorder, alcohol use disorder, mood disorder who presented via EMS after being found at [facility] back and forth, reporting taking PCP. Upon arrival to the ED patient was responsive to painful stimuli, breathing spontaneously, but not answering any questions. He initially refused labs, but was then able to state his name and , and agreed to labs/evaluation. Shortly after patient noted to be seizing. Patient was recently admitted inpatient for acute toxic metabolic encephalopathy, aspiration pneumonia, rhabdo, SI. History limited due to altered mental status. Upon becoming more alert, patient reporting suicidal ideation and states that he used drugs yesterday as an overdose attempts. MD complaint: altered mental status Onset (ago): unknown Related Data Home Medications ?Medication ?Instructions ?Recorded ?Confirmed buprenorphine 8 mg-naloxone 2 mg 1 film sublingual BID 04/20/24 04/20/24 sublingual film (Suboxone) dextroamphetamine-amphetamine 20 1 tab PO BID@0900,1400 04/20/24 04/20/24 mg tablet escitalopram oxalate 20 mg tablet 20 mg PO DAILY 04/20/24 04/20/24 lisdexamfetamine 60 mg capsule 60 mg PO DAILY 04/20/24 04/20/24 (Vyvanse) propranolol 20 mg tablet 20 mg PO BID 04/20/24 04/20/24 quetiapine 200 mg tablet 200 mg PO BEDTIME 04/20/24 04/20/24 Previous Rx's ?Medication ?Instructions ?Recorded amoxicillin 875 mg-potassium 1 tab PO BID #4 tabs 04/24/24 clavulanate 125 mg tablet Allergies Allergy/AdvReac Type Severity Reaction Status Date / Time Unable to Assess Allergy Unverified 04/30/24 05:13 Review of Systems 2 Review of Systems: As per HPI Yes all other systems are reviewed and are negative Constitutional: Constitutional: Reports as per HPI Neurologic: Reports confusion Psychiatric: Psychiatric: Reports confusion PMFSH Past Medical History Medical History (Updated 04/30/24 @ 14:36 by Jesika Lang NP) Polysubstance abuse Mood disorder Social History Social History Household Members: Unknown / Unable to assess Housing: Unknown / Unable to assess Alcohol intake: current Comment: 1:1 sitter Patient Tobacco Use Status: Tobacco use Unknown Substance Use Type: Amphetamines, Crack/Cocaine, Methamphetamine and Opiates Advance Directives: No Advance Directives Information Provided: Yes Physical Exam ED Vital Signs: Vital Signs - 24 hr 04/30/24 05:11 04/30/24 08:52 04/30/24 09:30 Temperature 99.0 F Pulse Rate 84 93 82 Respiratory Rate 20 16 12 Blood Pressure 163/81 H 140/62 H 148/74 H Pulse Oximetry 94 94 100 Oxygen Delivery Method Room Air Room Air Non-Rebreather Mask Oxygen Flow Rate 15 04/30/24 09:43 Temperature Pulse Rate 82 Respiratory Rate 17 Blood Pressure 138/69 Pulse Oximetry 100 Oxygen Delivery Method Oxymask Oxygen Flow Rate 2 BMI result Body Mass Index 28.7 Vital signs have been reviewed and appear to be correct. Blood pressure elevated. Heart rate normal. Respiratory rate normal. Temperature normal. Oxygen saturation normal. Const General: confusion and intoxicated appearing Nutritional Appearance: average body habitus Orientation/consciousness: oriented to person, oriented to place and confusion Limitations: altered mental status HENMT Head: Yes normocephalic Ears: external ear abnormal auricular hematoma bilateral General nose exam: Normal external nose present Face and sinus: Yes face symmetric Mouth: oropharynx normal and moist mucous membranes Throat: Yes uvula midline Eyes Pupils: Equal, round and reactive pupils present Neck Neck: Yes normal visual inspection and Yes supple Resp Effort & Inspection: normal respiratory effort and able to speak in complete sentences Auscultation: clear to auscultation bilaterally Cardio Rate: regular rate Rhythm: regular rhythm Heart sounds: S1 normal heart sound present and S2 normal heart sound present GI Palpation (GI): Soft to palpation and nontender Auscultation: normoactive bowel sounds General: Yes no CVA tenderness Back/Spine/Pelvis Back: no CVA tenderness Skin General skin exam: elasticity normal and turgor normal Neuro General: oriented to person, oriented to place, moves all extremities, no focal motor deficits and confusion Cranial nerves: Yes Equal, round and reactive pupils present Extrem General: Yes full ROM, Yes no pedal edema and Yes no calf tenderness Left upper extremity: elbow/forearm Details: other (abscess left anterior forearm) Course Reevaluation(s) Reevaluation #1: Notified by nursing staff that patient seizing. IM Ativan ordered x 2. IV access and labs including cultures and lactic obtained. Airway patent. Patient moved to room closer to nursing station. Time: 09:15 Medications Administered Discontinued Medications Generic Name Dose Route Start Last Admin Trade Name Freq PRN Reason Stop Dose Admin Sodium Chloride 1,000 mls @ 999 mls/hr 04/30/24 09:45 04/30/24 11:13 Ns IV 04/30/24 10:45 Infused .Q1H1M MARIANN Infusion Lorazepam 2 mg 04/30/24 09:38 04/30/24 10:07 Lorazepam 2 Mg/Ml Vial IM 04/30/24 09:39 2 mg STAT STA Administration Lorazepam 2 mg 04/30/24 09:38 04/30/24 10:08 Lorazepam 2 Mg/Ml Vial IM 04/30/24 09:39 2 mg STAT STA Administration Medical Decision Making Medical Decision Making [facility] Narrative: Patient is a 49-year-old male with history of polysubstance use disorder, alcohol use disorder, mood disorder who presented via EMS after being [facility], reporting taking PCP, also reporting suicidal ideation. On exam patient is awake, A+Ox3, VS WNL, afebrile, normal neurological exam without focal deficits, physical exam findings as above. Given reported symptoms and physical exam findings, initial differential includes but is not limited to drug or alcohol intoxication or withdrawal, electrolyte abnormality, rhabdomyolysis, encephalopathy, ICH, skull or c-spine injury, pneumonia, sepsis, seizure. Labs notable for leukocytosis, thrombocytosis, negative ethanol, mild transaminitis, elevated alk phos, normal ammonia, slightly elevated CK, do not suspect rhabdo, normal lactic. X-ray chest is without evidence of pneumonia. CT head and c spine notable for no evidence of ICH, skull or cervical vertebral fracture. My interpretation is in agreement with the radiologist's interpretation. Witnessed seizure in the ED with ongoing tremors/spasms. Admission to medicine accepted by Dr. Yousif. Differential Diagnosis Differential Diagnoses: The differential diagnosis associated with the presentation includes as per [facility] Admission/Observation Consideration of admission/observation: Escalation of care including admission/observation considered Consult Healthcare Provider Management of the patient was discussed with: Hospitalist Lab Data [facility] Lab Attestation statement: I reviewed the patient's lab results. As per [facility] 04/30/24 09:29 04/30/24 09:29 Labs: Lab Results 04/30/24 04/30/24 04/30/24 Range/Units 09:28 09:29 09:38 WBC 12.4 H (4.8-10.8) X10*3/uL RBC 5.17 (4.60-5.80) X10*6/uL Hgb 14.2 (14.0-18.0) g/dl Hct 43.6 (42.0-52.0) % MCV 84.3 (80.0-98.0) fL MCH 27.5 (27.0-33.0) pg MCHC 32.6 (31.0-36.0) g/dl RDW 15.9 (11.0-16.0) % Plt Count 585 H D (160-400) X10*3/uL MPV 9.3 L (9.4-12.4) fL Immature Gran % (Auto) 0.4 (0.0-0.4) % Neut % (Auto) 73.5 H (45-73) % Lymph % (Auto) 16.1 L (20-40) % [place] % (Auto) 9.0 (2-11) % Eos % (Auto) 0.4 (0-4) % Baso % (Auto) 0.6 (0-2) % Lymph # (Auto) 2.0 (1.2-4.9) X10*3/uL [place] # (Auto) 1.1 (0.1-1.2) X10*3/uL Eos # (Auto) 0.1 (0.0-0.4) X10*3/uL Baso # (Auto) 0.1 (0.0-0.2) X10*3/uL Abs Immat Gran (auto) 0.05 H (0.00-0.03) X10*3/uL Absolute Neuts (auto) 9.1 H (2.0-8.3) x10*3/uL Absolute Nucleated RBC 0.000 (0.0-0.012) X10*3/uL Nucleated RBC % (auto) 0.0 (0.0-0.2) /100WBC VBG pH 7.35 (7.32-7.43) VBG pCO2 49 mmHg VBG pO2 38 mmHg VBG HCO3 27 H (22-26) mmol/L VBG O2 Saturation 56.0 % VBG Base Excess 1.4 mmol/L Sodium 139 (135-145) mmol/L Potassium 4.0 (3.3-5.1) mmol/L Chloride 103 (96-108) mmol/L Carbon Dioxide 24 (22-29) mmol/L Anion Gap 16 (12-20) BUN 15 (9-16) mg/dL Creatinine 0.83 (0.5-1.4) mg/dL Estim Creat Clear Calc 121.9 Estimated GFR > 60 Random Glucose 98 (60-115) mg/dL Lactic Acid 2.0 (0.5-2.0) mmol/L Calcium 8.9 (8.4-10.2) mg/dL Magnesium 2.4 (1.6-2.6) mg/dL Total Bilirubin 0.6 (0.0-1.0) mg/dL AST 49 H (5-37) U/L ALT 56 H (0-40) U/L Alkaline Phosphatase 160 H (39-117) U/L Ammonia 41 (13-55) umol/L Total Creatine Kinase 233 H (38-174) U/L Total Protein 8.9 H (6.5-8.0) g/dL Albumin 4.4 (3.5-5.0) g/dL Salicylates < 5.0 L (15-30) mg/dL Acetaminophen < 3 (<30) mcg/mL Ethyl Alcohol < 10 mg/dL Independent Interpretation I performed an independent interpretation of an: Plain X-Ray and CT Scan Interpretation: Chest x-ray is without evidence of pneumonia. CT head and c spine notable for no evidence of ICH, skull or cervical vertebral fracture. Radiology Impression Discussion of test interpretation with radiology: I have reviewed the radiologist's reading. Radiologist Impression: XR/XR chest 1V IMPRESSION: Low lung volumes. No acute cardiopulmonary abnormality. CT/CT cervical spine wo IV con IMPRESSION: No evidence of fracture or malalignment of the cervical spine. CT/CT head/brain wo IV con IMPRESSION: No acute intracranial abnormality. External Record Review External record reviewed: Inpatient record, Office record and Outpatient record Discharge Plan Discharge Patient Disposition: Admitted As Inpatient Prescriptions: No Action quetiapine 200 mg tablet 200 mg PO BEDTIME dextroamphetamine-amphetamine 20 mg tablet 1 tab PO BID@0900,1400 propranolol 20 mg tablet 20 mg PO BID escitalopram oxalate 20 mg tablet 20 mg PO DAILY lisdexamfetamine [Vyvanse] 60 mg capsule 60 mg PO DAILY buprenorphine-naloxone [Suboxone] 8-2 mg film 1 film sublingual BID amoxicillin-pot clavulanate 875-125 mg tablet 1 tab PO BID Qty: 4 0RF Print Language: Kyrgyz
--- OUTSIDE RECORDS SUMMARY | 2024-04-30 09:08 | XMS_ITS | CLINICAL SUMMARY ---
Author Name Neelam So Address [address] [place] [address] Phone Organization [facility] Address [address] [place] [address] Phone Care Team Providers Care Woven Label Designer Name Role Phone Neelam So Unavailable [phone] Chanelle Pena Unavailable No Provider Unavailable Unavailable SOCIAL HISTORY Social History Observation Description Dates Observed Sex Male 1975 None recorded VITAL SIGNS BMI Body Mass Index Percentile Date Systolic Diastolic Head Circumference Head Circumference Percentile Height Oxygen Concentration Pulse Pulse Oximeter Respiratory Rate Temperature Weight Mpomod-edj-pnxgqe Percentile 25.8 42 kg/m 2 Unknown 129 147 mmHg 87 mmHg Unknown Unknown 69 [in_i] Unknown 76 /min 97 % 16 /min 98.2 175 [lb_av] Unknown ALLERGIES AND ADVERSE REACTIONS No known allergies MEDICATIONS Medication Directions Start Date Form Frequency Route Duration Duration Units Status Strength Strength Units of Measure albuterol sulfate Take 1-2 Puff(s) (inhalation ) every 4 hours PRN - Wheezing for 30 days 1 inhaler 20210221 29 HFA aeros ol inhal er every 4 hours inhala tion 30 days active 90 mcg/actua tion benzonatate Take 1 Capsule (oral) 3 times per day for 10 days 20210221 29 capsu le 3 times per day oral 10 days active 200 MG Medrol (Surjit) Take 1 Application (oral) 1 time per day for 6 days 1 pack, take as directed 20210221 29 table ts,do se pack 1 time per day oral 6 days active 4 mg Adderall Take No date record ed No form recor ded No frequency recorded No route record ed No set duration recorded No set duration amount recorded active No dosage strength recorded No dosage strength units of measure recorded bisoprolol fumarate Take No date record ed No form recor ded No frequency recorded No route record ed No set duration recorded No set duration amount recorded active No dosage strength recorded No dosage strength units of measure recorded Suboxone Take No date record ed No form recor ded No frequency recorded No route record ed No set duration recorded No set duration amount recorded active No dosage strength recorded No dosage strength units of measure recorded PROBLEM LIST Names Dates Status Influenza with other respiratory manifestations 20220119 active Influenza due to other ident ified influenza virus with other respiratory manifestations 20220122 active Contact with and (suspected) exposure to COVID-1 9 20220122 active FAMILY HISTORY ENCOUNTERS Encounter Performer Location E/M Code E/M Label Date Diagnosi s visit [place] [address] Office or other outpatient visit (comprehensive , (comprehensive - moderate)) 20220119 Influenza with other respiratory manifestations visit [place] [address] Office or other outpatient visit (comprehensive , (comprehensive - moderate)) 20220119 Influenza due to other identified influenza virus with other respiratory manifestations visit [place] [address] Office or other outpatient visit (comprehensive , (comprehensive - moderate)) 20220119 Contact with and (suspected) exposure to COVID-19 LAB RESULTS Overall Code Overall Text [Code] Result Type (Code) Result Text Result Value Relevant Reference Range Date Lab Name [facility] Zip Code No overall lab code recorded Covid-19 Antigen Test CARD [74260] 12542-4 Covid-19 Antigen Test CARD Negative Normal = Negative [address] [facility] [address] [place] [facility] [place] [address] No overall lab code recorded Binax Influenza Test [46795] No result type code recorded Flu A Positive Normal = Negative [address] [facility] [address] [facility] [place] [address]12 No overall lab code recorded Binax Influenza Test [95345] No result type code recorded Flu B Negative Normal = Negative [address] [facility] [address] [place] [facility] [place] [address]12 No overall lab code recorded Combo COVID/Flu {32075.FL U} QTY(1) No result type code recorded Combo COVID/Fl u {95236.F AVERY} QTY(1) No range recorded [facility] [address] [facility] [address] INSURANCE PROVIDERS (PAYERS) Payer name Policy type / Coverage type Policy ID Covered republican ID Insurance type Policy [employer] Medicaid Medicaid [id number] Primary KASANDRA WATSrikanth N PROCEDURE NOTE Date Name Status Summary Text (N otes) 20220119 Combo COVID/Flu {82282.FLU} Completed Combo COVID/Flu {38305.FLU} QTY(1) 20220119 06847 Completed Binax Influenza Test None recorded None recorded None recorded None recorde d None recorded None recorded None recorded None recorde d PROCEDURES Date Name Status Summary Text (N otes) 20220119 Combo COVID/Flu {99073.FLU} Completed Combo COVID/Flu {81397.FLU} QTY(1) 20220119 51115 Completed Binax Influenza Test None recorded None recorded None recorded None recorde d None recorded None recorded None recorded None recorde d ASSESSMENTS No information recorded LABORATORY REPORT NARRATIVE NOTE No information recorded PATHOLOGY REPORT NARRATIVE NOTE No information recorded IMAGING NARRATIVE Result Code Result Text Date Status Urgency Interp retation None None None None None None DISCHARGE SUMMARY NOTE * Allergies: No known allergies * Medication Current: Medication Directions Start Date Form Frequency Route Duration Duration Units Status Strength Strength Units of Measure albuterol sulfate Take 1-2 Puff(s) (inhalation ) every 4 hours PRN - Wheezing for 30 days 1 inhaler 20210221 29 HFA aeros ol inhal er every 4 hours inhala tion 30 days active 90 mcg/actua tion benzonatate Take 1 Capsule (oral) 3 times per day for 10 days 20210221 29 capsu le 3 times per day oral 10 days active 200 MG Medrol (Surjit) Take 1 Application (oral) 1 time per day for 6 days 1 pack, take as directed 20210221 29 table ts,do se pack 1 time per day oral 6 days active 4 mg Adderall Take No date record ed No form recor ded No frequency recorded No route record ed No set duration recorded No set duration amount recorded active No dosage strength recorded No dosage strength units of measure recorded bisoprolol fumarate Take No date record ed No form recor ded No frequency recorded No route record ed No set duration recorded No set duration amount recorded active No dosage strength recorded No dosage strength units of measure recorded Suboxone Take No date record ed No form recor ded No frequency recorded No route record ed No set duration recorded No set duration amount recorded active No dosage strength recorded No dosage strength units of measure recorded * Plan of Care (advice, pending tests, pending diagnostic tests): Treatment Type Code Text Date Observatio n Data Instruction [id number] Patient Education 2022-01-19 Tyleno l every 4-6 hours as needed and/or Ibuprofen every 6-8 hours as needed, over the counter for pain or fever. Instruction [id number] Patient Education 2022-01-19 If you r condition worsens we recommend that you receive another evaluation at the emergency room immediately or contact your primary medical clinics after hours call service to discuss your concerns. You must understand that you've received an Urgent Care treatment only and that you may be released before all of your medical problems are known or treated. You, the patient, will arrange for follow up care as instructed. Instruction [id number] Patient Education 2022-01-19 Drink plenty of fluids. Instruction [id number] Patient Education 2022-01-[address] ent[address] of rest. Instruction [id number] Patient Education 2022-01-19 Follow up with Primary care physician in next 2-5 days. Instruction [id number] Patient Education 2022-01-19 Your t est for COVID-19 was negative today. You have been given education sheets with detailed information on self and follow up care. If you have worsening symptoms, please call 911. Instruction [id number] Patient Education 2022-01-19 Your d iagnosis appears to be caused by a viral source. Since viruses do not respond to antibiotics, we are not prescribing one at this time. This is an effort to help decrease antibiotic adverse outcomes and help stop the rise in antibiotic resistance. If your symptoms worsen or change, and/or feel that you may need an antibiotic, please seek medical treatment for evaluation and further management. Instruction [id number] Patient Education 2022-01-[address] ated that you had fever at home that was reduced by a fever reducing medication. Please continue to monitor your temperature and take this medication as needed. Instruction [id number] Patient Education 2022-01-19 You villafana ve stated that you are having systemic symptoms from this illness. Please follow the directions given to you for home care and follow up with us as needed. Go to the ER if your symptoms become worse. Observation 09603-3 Combo COVID/Flu None specified No O bservation data available for this record * Visit Diagnosis: Influenza with other respiratory manifestations (J11.1) Influenza due to other identified influenza virus with other respiratory manifestations (J10.1) Contact with and (suspected) exposure to COVID-19 (Z20.822) * Referrals: First Name Last Name NPI# Reason None recorded None recorded None recorded None recorde d HISTORY AND PHYSICAL NOTE * Reason for Visit: Patient Reports: Cough [Onset: 1 Day(s); Frequency: 1 Day(s); Hx of: Denies Bronchitis, Asthma, COPD Reports Pneumonia; Assoc. Sx: Reports Wheezing, Congestion, Shortness of breath, Fever, Runny nose; Free text: cough with green mucus, body aches, chills,wheezing started yesterday. pt states hes been taking tylenol with slight relief. pt denies @ home covid test.]; Wheezing; Congestion; Shortnessof breath; Fever; Runny nose; Fatigue/Weakness; Sweats; Sore throat; Shortness of breath. Patient Denies: Earache; Ear pressure; Sinus pressure; Asthma; Vomiting * Family History: * * Allergies: No known allergies * Problems: Names Dates Status Influenza with other respiratory manifestations 20220119 active Influenza due to other ident ified influenza virus with other respiratory manifestations 20220122 active Contact with and (suspected) exposure to COVID-1 9 20220122 active * Vitals: BMI Body Mass Index Percentile Date Systolic Diastolic Head Circumference Head Circumference Percentile Height Oxygen Concentration Pulse Pulse Oximeter Respiratory Rate Temperature Weight Tjugeq-oby-ajidtt Percentile 25.8 42 kg/m 2 Unknown 129 147 mmHg 87 mmHg Unknown Unknown 69 [in_i] Unknown 76 /min 97 % 16 /min 98.2 175 [lb_av] Unknown * Review of Systems: * *Systemic* Patient Reports* Fever * Shortness of breath * Allergy/Immun* Patient Reports* Runny nose * ENT/Mouth* Patient Denies* Ear pressure * Earache * Sinus pressure * Patient Reports* Sore throat * GI* Patient Denies* Vomiting * Respiratory* Patient Denies* Asthma * Patient Reports* Congestion * Cough (Free text: cough with green mucus, body aches, chills,wheezing started yesterday. pt states hes been taking tylenol with slight relief. pt denies @ home covid test. ; Hx of: Denies Bronchitis;Hx of: Reports Pneumonia; Hx of: Denies Asthma; Hx of: Denies COPD; Assoc. Sx: Reports Wheezing; Assoc. Sx: Reports Congestion; Assoc. Sx: Reports Shortness of breath; Assoc. Sx: Reports Fever; Assoc. Sx: Reports Runny nose; Onset: 1 Day(s); Frequency: 1 Day(s)) * Wheezing * Exam: * General : Normal* Normal : Well developed,No acute distress * Skin, Hair, Nails : Normal* Normal : No rashes noted,No Abrasions observed * Head : Normal* Normal : Normocephalic,Face is grossly normal,No evidence of trauma * Oral pharynx : Normal* Normal : Lips appear normal * Chest/Lungs : Normal* Normal : No signs of respiratory distress,Normal and symmetrical appearing chest on exam * Cardiac : Normal* Normal : Normal heart rate noted,Peripheral edema absent * Neurological : Normal* Normal : Gross motor coordination intact * Musculoskeletal : Normal* Normal : Normal Gait,Normal Posture * Plan of Care (advice, pending tests, pending diagnostic tests): Treatment Type Code Text Date Observatio n Data Instruction [id number] Patient Education 2022-01-19 Tyleno l every 4-6 hours as needed and/or Ibuprofen every 6-8 hours as needed, over the counter for pain or fever. Instruction [id number] Patient Education 2022-01-19 If you r condition worsens we recommend that you receive another evaluation at the emergency room immediately or contact your primary medical clinics after hours call service to discuss your concerns. You must understand that you've received an Urgent Care treatment only and that you may be released before all of your medical problems are known or treated. You, the patient, will arrange for follow up care as instructed. Instruction [id number] Patient Education 2022-01-19 Drink plenty of fluids. Instruction [id number] Patient Education 2022-01-[address] of rest. Instruction [id number] Patient Education 2022-01-19 Follow up with Primary care physician in next 2-5 days. Instruction [id number] Patient Education 2022-01-19 Your t est for COVID-19 was negative today. You have been given education sheets with detailed information on self and follow up care. If you have worsening symptoms, please call 911. Instruction [id number] Patient Education 2022-01-19 Your d iagnosis appears to be caused by a viral source. Since viruses do not respond to antibiotics, we are not prescribing one at this time. This is an effort to help decrease antibiotic adverse outcomes and help stop the rise in antibiotic resistance. If your symptoms worsen or change, and/or feel that you may need an antibiotic, please seek medical treatment for evaluation and further management. Instruction [id number] Patient Education 2022-01-[address] ated that you had fever at home that was reduced by a fever reducing medication. Please continue to monitor your temperature and take this medication as needed. Instruction [id number] Patient Education 2022-01-19 You villafana ve stated that you are having systemic symptoms from this illness. Please follow the directions given to you for home care and follow up with us as needed. Go to the ER if your symptoms become worse. Observation 76814-9 Combo COVID/Flu None specified No O bservation data available for this record * Lab Results: Overall Code Overall Text [Code] Result Type (Code) Result Text Result Value Relevant Reference Range Date Lab Name [facility] No overall lab code recorded Covid-19 Antigen Test CARD [33941] 11488-7 Covid-19 Antigen Test CARD Negative Normal = Negative [address] [facility] [facility] [address] [facility] [place] [address]12 No overall lab code recorded Binax Influenza Test [95978] No result type code recorded Flu A Positive Normal = Negative [address] [facility] [address] [facility] [place] [address] No overall lab code recorded Binax Influenza Test [76800] No result type code recorded Flu B Negative Normal = Negative [address] [facility] [address] [facility] [place] [address] No overall lab code recorded Combo COVID/Flu {27738.FL U} QTY(1) No result type code recorded Combo COVID/Fl u {87941.F AVERY} QTY(1) No range recorded [address] [facility] [address] [facility] [address] * Radiology Results: Overall Code Overall Text [Code] Result Type (Code) Result Text Result Value Relevant Reference Range Date Lab Name [facility] Zip Code None recorded None recorded None recorded None recorded None recorded None recorded None recor ded None recor ded None recorde d None recor ded None record ed None recor ded * Visit Diagnosis: Influenza with other respiratory manifestations (J11.1) Influenza due to other identified influenza virus with other respiratory manifestations (J10.1) Contact with and (suspected) exposure to COVID-19 (Z20.822) * Referrals: First Name Last Name NPI# Reason None recorded None recorded None recorded None recorde d PLAN OF TREATMENT Treatment Type Code Text Date Instructio n Data Instruction [id number] Patient Education 2022-01-19 Tyleno l every 4-6 hours as needed and/or Ibuprofen every 6-8 hours as needed, over the counter for pain or fever. Instruction [id number] Patient Education 2022-01-19 If you r condition worsens we recommend that you receive another evaluation at the emergency room immediately or contact your primary medical clinics after hours call service to discuss your concerns. You must understand that you've received an Urgent Care treatment only and that you may be released before all of your medical problems are known or treated. You, the patient, will arrange for follow up care as instructed. Instruction [id number] Patient Education 2022-01-19 Drink plenty of fluids. Instruction [id number] Patient Education 2022-01-[address] of rest. Instruction [id number] Patient Education 2022-01-19 Follow up with Primary care physician in next 2-5 days. Instruction [id number] Patient Education 2022-01-19 Your t est for COVID-19 was negative today. You have been given education sheets with detailed information on self and follow up care. If you have worsening symptoms, please call 911. Instruction [id number] Patient Education 2022-01-19 Your d iagnosis appears to be caused by a viral source. Since viruses do not respond to antibiotics, we are not prescribing one at this time. This is an effort to help decrease antibiotic adverse outcomes and help stop the rise in antibiotic resistance. If your symptoms worsen or change, and/or feel that you may need an antibiotic, please seek medical treatment for evaluation and further management. Instruction [id number] Patient Education 2022-01-[address] ated that you had fever at home that was reduced by a fever reducing medication. Please continue to monitor your temperature and take this medication as needed. Instruction [id number] Patient Education 2022-01-19 You villafana ve stated that you are having systemic symptoms from this illness. Please follow the directions given to you for home care and follow up with us as needed. Go to the ER if your symptoms become worse. Observation 73543-1 Combo COVID/Flu None specified No i nstruction data available for this record CHIEF COMPLAINT AND REASON FOR VISIT NARRATIVE Patient Reports: Cough [Onset: 1 Day(s); Frequency: 1 Day(s); Hx of: Denies Bronchitis, Asthma, COPD Reports Pneumonia; Assoc. Sx: Reports Wheezing, Congestion, Shortness of breath, Fever, Runny nose; Free text: cough with green mucus, body aches, chills,wheezing started yesterday. pt states hes been taking tylenol with slight relief. pt denies @ home covid test.]; Wheezing; Congestion; Shortnessof breath; Fever; Runny nose; Fatigue/Weakness; Sweats; Sore throat; Shortness of breath. Patient Denies: Earache; Ear pressure; Sinus pressure; Asthma; Vomiting
--- OUTSIDE RECORDS SUMMARY | 2024-04-30 09:08 | XMS_ITS ---
Author Organization [facility] [place], Address [address] [place] [address] Care Team Providers Care Medical Receptionist Name Role Phone [facility] Ara Christopher [facility] Unavaila ble Unavailable REASON FOR VISIT 1 week f/u Social History Sex Assigned At : Social History Observation Description Sex Assigned At Male Encounters Encounter Location Date Provider Diagnosis [facility] Urgent [facility] [place] [address] 09/11/2023 [facility] Swapnilkaiden Plan Of Treatment No Information Progress Notes * Mari DIAMONDOB:1975 ( 49 yo M)Acc No.[id number]:09/11/2023 Progress Note Patient:?Abiodun DIAMOND Provider:?[facility] Thanh davenport :1975???Age:48 Y???Sex:Male Pieter e:09/11/2023 Address:[address] [place] [id number] Subjective: * Chief Complaints: * ???1. 1 week f/u. * Medical History:? Objective: * Vitals:? Assessment: Plan: * Treatment: Care Plan: * Problems:? * Billing Information: * Visit Code:? * Procedure Codes:? Care Plan Details* * Electronic signature of [facility] on 04/30/2024 at 09:08 AM EDT Sign off status: Pending * Provider:?[facility] Jak Chinchilla Date:?09/11/2023 Generated for Raul méndez/Yannick/eTransmitting on:?04/30/2024 09:08 AM EDT
--- OUTSIDE RECORDS SUMMARY | 2024-04-30 09:08 | XMS_ITS | Patient Health Record ---
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 Problem 299089267 Spondylosis of cervical region without myelopathy or radiculopathy (M47.812) Active confirmed Plan Of Treatment No Information Insurance Providers Payer Name Payer Address Payer Phone Subscriber Number Group Number Insured Name Patient Relationship to Insured Coverage Start Date Coverage End Date [employer] [address] [place] [address] [phone] [id number] Abiodun Edwards Self - patient is the insured Medical (General) History Medical History History ICD Code Gastroparesis Lyme disease Depression Anxiety PTSD Surgical History Surgery Date(Month/Year) Left hip surgery Left shoulder SLAP repair
--- OUTSIDE RECORDS SUMMARY | 2024-04-30 09:08 | XMS_ITS | Patient Health Record ---
Author Organization [facility], Address [address] [place] [address] Care Team Providers Care Public Address Announcer Name Role Phone [facility], [facility] Unavaila ble Unavailable Denton Keller Unavailable Unavailable Allergies No Known Allergies Reason For Referral Reason Umbilical Hernia Not Reducible with Significant Abdominal Distension, Gastroparesis - Referral to GI Diagnosis 1 Umbilical hernia wit hout obstruction or gangrene (K42.9) Referring Provider First Name Denton Referring Provider Last Name Referred Provider Specialty Gastroentero logy General Notes [facility], [address], [place] [address] [facility], P [phone] F [phone] Referral Priority Routine Medications Medication SIG (Take, [...] Risk Notes Problem Exposure to communicable disease (324641869) Contact with and (suspected) exposure to other viral communicable diseases (Z20.828) Active confirmed Problem Constipation (57580299) Constipation (K59.00) Active confirmed Vital Signs Heart Rate 90 /min 09/04/2023 Temperature 98.2 degrees Fahrenheit 09/04/2023 Respiratory Rate 18 /min 09/04/2023 Oximetry 98 % 09/04/2023 Blood pressure diastolic 88 mm Hg 09/04/2023 Height 67 in 09/04/2023 Blood pressure systolic 130 mm Hg 09/04/2023 Weight 199.0 lbs 09/04/2023 BMI 31.16 kg/m2 09/04/2023 Encounters Encounter Location Date Provider Diagnosis [facility] [place] [address] [place] [address] 09/04/2023 Denton Keller Constipation K59.00 and Umbilical [...] encounter, I dedicated 22 minutes to direct byna-jl-alcp and jek-pekd-am-face time with the patient. I invested time [...] End Date [employer] [place] [address] [place] [address] [id number] Vicalda Abiodun Self - patient is the insured Medical (General) History Medical History History ICD Code asthma: No Cancer: No DEPRESSION: Yes Diabetes: No high blood pressure: No kidney disease: No thyroid disease: No Have you bloodwork done in the past 12 m [facility]?: Yes Have you had a physical in the past 12 m [facility]?: Yes Surgical History: Left shoulder right bi ceps left hip
--- OUTSIDE RECORDS SUMMARY | 2024-04-30 09:09 | XMS_ITS ---
Author Organization [facility], Address [address] [place] [address] Care Team Providers Care Fire Captain Marine Name Role Phone Denton Keller Unavailable Unavailable Allergies No Known Allergies Reason For Referral Reason Umbilical Hernia Not Reducible with Significant Abdominal Distension, Gastroparesis - Referral to GI Diagnosis 1 Umbilical hernia wit hout obstruction or gangrene (K42.9) Referring Provider First Name Denton Referring Provider Last Name Referred Provider Specialty Gastroentero logy General Notes [facility], [address], [place] [address] [facility], P [phone] F [phone] Referral Priority Routine REASON FOR VISIT Stomach [...] Status W/U Status Risk Notes Problem Constipation (31013445) Constipation (K59.00) Active confirmed Vital Signs Temperature 98.2 degrees Fahrenheit 09/04/19 24 Heart Rate 90 /min 09/04/2023 Blood pressure systolic 130 mm Hg 09/04/19 24 Blood pressure diastolic 88 mm Hg 024 Height 67 in 09/04/2023 Weight 199.0 lbs 09/04/2023 BMI 31.16 kg/m2 09/04/2023 Respiratory Rate 18 /min 09/04/2023 Oximetry 98 % 09/04/2023 Encounters Encounter Location Date Provider Diagnosis [facility] [address] [address] 09/04/2023 Denton Keller Constipation K59.00 and Umbilical [...] encounter, I dedicated 22 minutes to direct nmeg-gb-mapm and nus-myxy-an-face time with the patient. I invested time [...] constipation follow up Progress Notes * [place] EDWARDSMisaOB:1975 ( 48 yo M)Acc No.[id number]:09/04/2023 Progress Notes Patient:?Abiodun EDWARDS Provider:?Denton Keller APRN :1975???Age:48 Y???Sex:Male Pieter e:09/04/2023 Address:[address] [place] [address] Subjective: * Chief Complaints: * ???1. 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 Sex?Male * ROS:?General/Constitutional:?Fever?Yes.? [...] encounter, I dedicated 22 minutes to direct yjgd-uo-abyg and lqi-ukyd-rv-face time with the patient. I invested time in preparatory tasks, including reviewing the patient's history and checking electronic pharmacy inputs for available medications. I conducted a thorough examination and provided counselling and education to the patient. I managed medication, test, and procedure orders. I ensured accurate documentation of all clinical information in the electronic medical record.?? * Procedure Codes:?09720 BRIEF EMOTIONAL/BEHAV ASSMT * Follow Up:?1 Week (Reason: x ray results, constipation follow up) Care Plan: * Problems:? * Billing Information: * Visit Code:? 69116 Office Visit, New Patient. Modifiers: 25 * Procedure Codes:? 30640 BRIEF EMOTIONAL/BEHAV ASSMT. Care Plan Details* * Sign off status: Completed true * Provider:Rosalino Keller APRN Date:? 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
--- NOTE | 2024-04-30 09:28 | PC.NURSE ---
US-guided 20G placed by Dieudonne Benitez RN to pt.'s R brachial
--- NOTE | 2024-04-30 09:30 | PC.NURSE ---
Pt. noted to be seizing suddenly. DATA PROCESSING SUPERVISOR chauncey Abraham. ED RNs and techs to room. Ativan 2mg IM x2 (09:12 and 09:14) given with good effect. 15L via non-rebreather applied for questionable O2 sats and a poor read. Was finally able to get good O2 sat read at 100% and non-rebreather removed. Labs drawn. 20G US-guided IV placed by Dieudonne Benitez RN. Pt. moved to ED bed 4.
[2024-04-30 09:37] LABS: MANUAL DIFF FLAG NO
[2024-04-30 09:39] LABS: Basophils Absolute Auto 0.1 X10*3/uL (0.0-0.2); Basophils Percent Auto 0.6 % (0-2); Eosinophils Absolute Auto 0.1 X10*3/uL (0.0-0.4); Eosinophils Percent Auto 0.4 % (0-4); Hematocrit 43.6 % (42.0-52.0); Hemoglobin 14.2 g/dl (14.0-18.0); Imm Gran Abs Auto 0.05 X10*3/uL (0.00-0.03); Imm Gran Pct Auto 0.4 % (0.0-0.4); Lymphocytes Percent Auto 16.1 % (20-40); Mean Corpuscular HGB Conc 32.6 g/dl (31.0-36.0); Mean Corpuscular Hemoglobin 27.5 pg (27.0-33.0); Mean Corpuscular Volume 84.3 fL (80.0-98.0); Mean Platelet Volume 9.3 fL (9.4-12.4); Monocytes Absolute Auto 1.1 X10*3/uL (0.1-1.2); Neutrophils Absolute Auto 9.1 x10*3/uL (2.0-8.3); Neutrophils Percent Auto 73.5 % (45-73); Platelet Count 585 X10*3/uL (160-400); Red Blood Count 5.17 X10*6/uL (4.60-5.80); Red Cell Distribution Width 15.9 % (11.0-16.0); White Blood Count 12.4 X10*3/uL (4.8-10.8)
--- NOTE | 2024-04-30 09:39 | PC.NURSE ---
Pt. moved from ED bed 2 to ED bed 4 for better staff visibility
[2024-04-30] MEDS: 0.9 % Sodium Chloride 1,000 ML 999 ML IV (09:40)
[2024-04-30 09:41] LABS: VBG Base Excess 1.4 mmol/L; VBG HCO3 27 mmol/L (22-26); VBG pCO2 49 mmHg; VBG pH 7.35 (7.32-7.43); VBG pO2 38 mmHg
[2024-04-30 09:45] LABS: Venous Blood Gas Refer to POC result
[2024-04-30 09:46] LABS: Ammonia 41 umol/L (13-55)
--- NOTE | 2024-04-30 09:50 | PC.NURSE ---
Pt. endorsing SI - stating that last night's overdose was intentional to attempt to commit suicide. Pt. changed over to safety scrubs and is on a 1:1 sitter for safety at this time in ED bed 4.
[2024-04-30 09:56] LABS: Magnesium 2.4 mg/dL (1.6-2.6)
[2024-04-30 10:06] LABS: Acetaminophen LAB < 3 mcg/mL (<30); Salicylate < 5.0 mg/dL (15-30)
[2024-04-30 10:06] LABS: Alanine Aminotransferase 56 U/L (0-40); Albumin Level 4.4 g/dL (3.5-5.0); Alkaline Phosphatase 160 U/L (39-117); Anion Gap 16 (12-20); Aspartate Amino Transferase 49 U/L (5-37); Bilirubin Total 0.6 mg/dL (0.0-1.0); Blood Urea Nitrogen 15 mg/dL (9-16); Calcium 8.9 mg/dL (8.4-10.2); Carbon Dioxide 24 mmol/L (22-29); Chloride 103 mmol/L (96-108); Creatinine Clr Calc Pharmacy 121.9; Estimated Glomerular Filt Rate > 60; Ethanol < 10 mg/dL; Glucose Random 98 mg/dL (60-115); Sodium 139 mmol/L (135-145); Total Protein 8.9 g/dL (6.5-8.0)
[2024-04-30] MEDS: LORazepam 2 MG/ML VIAL IM ×2 (10:07→10:08)
--- NOTE | 2024-04-30 14:32 | PM.IMHP ---
History of Present Illness Date of Service: 04/30/24 Chief Complaint: overdose 49-year-old male with history of polysubstance use disorder, alcohol use disorder, mood disorder who presented via EMS after being found at [facility] rocking back and forth, reporting taking PCP. Patient has been responsive to painful stimuli only however, he is hemodynamically stable but not answering any questions. He apparently was noted to have a seizure while in the ED. He was discharged from [facility] on 04/25 and treated for similar symptoms. He reported SI and stated that he used drugs as an overdose attempt. Labs all wnl, VS stable placed on oxymask 2 liters. CXR, head CT and cervical spine CT all negative for acute abnormality. Patient received Ativan and IV fluids in the ED, admit for treatment of overdose and seizure. Review of Systems Review of Systems: Yes Unobtainable due to mental status [facility] Medical History (Updated 04/30/24 @ 14:36 by Jesika Lang NP) Polysubstance abuse Mood disorder Social History Household Members: Unknown / Unable to assess Housing: Unknown / Unable to assess Alcohol intake: current Comment: 1:1 sitter Patient Tobacco Use Status: Tobacco use Unknown Substance Use Type: Amphetamines, Crack/Cocaine, Methamphetamine and Opiates Advance Directives: No Advance Directives Information Provided: Yes Meds Allergies Allergy/AdvReac Type Severity Reaction Status Date / Time Unable to Assess Allergy Unverified 04/30/24 05:13 Active Medications: Current Medications Acetaminophen (Acetaminophen 325 Mg Tablet) 650 mg PO Q6H PRN PRN Reason: Pain, Mild 1-3,fever,headache Calcium Carbonate (Calcium Carbonate 750 Mg Tab.Chew) 750 mg PO Q4H PRN PRN Reason: Heartburn Enoxaparin Sodium (Enoxaparin Sodium 40 Mg/0.4 Ml Syringe) 40 mg SUBCUT Q24H MARIANN Lactated Ringer's (Lr) 1,000 mls @ 100 mls/hr IVCONT .Q10H MARIANN Magnesium Hydroxide (Milk Of Magnesia 30 Ml Oral.Susp) 30 ml PO DAILY PRN PRN Reason: Constipation Melatonin (Melatonin 3 Mg Tablet) 6 mg PO BEDTIME PRN PRN Reason: Insomnia Ondansetron HCl (Ondansetron Hcl 4 Mg/2 Ml Vial) 4 mg IVPUSH Q8H PRN PRN Reason: Nausea and Vomiting Sodium Chloride (0.9 % Sodium Chloride Flush 3 Ml Syringe) 3 [facility]ations ?Medication ?Instructions ?Recorded ?Confirmed ?Last Taken ?Type buprenorphine 8 mg-naloxone 2 mg 1 film sublingual BID 04/20/24 04/20/24 Unknown History sublingual film (Suboxone) dextroamphetamine-amphetamine 20 1 tab PO BID@0900,1400 04/20/24 04/20/24 Unknown History mg tablet escitalopram oxalate 20 mg tablet 20 mg PO DAILY 04/20/24 04/20/24 Unknown History lisdexamfetamine 60 mg capsule 60 mg PO DAILY 04/20/24 04/20/24 Unknown History (Vyvanse) propranolol 20 mg tablet 20 mg PO BID 04/20/24 04/20/24 Unknown History quetiapine 200 mg tablet 200 mg PO BEDTIME 04/20/24 04/20/24 Unknown History Physical Exam Vital Signs and Narrative: Vital Signs: Last Vital Signs Temp 99.0 F 04/30/24 05:11 Pulse 82 04/30/24 09:43 Resp 17 04/30/24 09:43 BP 138/69 04/30/24 09:43 Pulse Ox 100 04/30/24 09:43 O2 Del Method Oxymask 04/30/24 09:43 O2 Flow Rate 2 04/30/24 09:43 BMI result Body Mass Index 28.7 Appearing in no acute distress head is normocephalic atraumatic eyes pupils are PERRLA sclera is anicteric mouth throat mucous membranes are intact and moist neck is supple no lymphadenopathy, no JVD noted lung sounds are clear to auscultation heart regular rate rhythm, clear S1, S2 positive bowel sounds, abdomen is soft, nontender neuro patient is sleeping Results Labs 04/30/24 09:29 04/30/24 09:29 Labs: Laboratory Results - last 24 hr 04/30/24 04/30/24 04/30/24 09:28 09:29 09:38 MCV 84.3 MCH 27.5 MCHC 32.6 RDW 15.9 Plt Count 585 H D MPV 9.3 L Immature Gran % (Auto) 0.4 Neut % (Auto) 73.5 H Lymph % (Auto) 16.1 L [place] % (Auto) 9.0 Eos % (Auto) 0.4 Baso % (Auto) 0.6 Lymph # (Auto) 2.0 [place] # (Auto) 1.1 Eos # (Auto) 0.1 Baso # (Auto) 0.1 Abs Immat Gran (auto) 0.05 H Absolute Neuts (auto) 9.1 H Absolute Nucleated RBC 0.000 Nucleated RBC % (auto) 0.0 VBG pH 7.35 VBG pCO2 49 VBG pO2 38 VBG HCO3 27 H VBG O2 Saturation 56.0 VBG Base Excess 1.4 Anion Gap 16 Estim Creat Clear Calc 121.9 Estimated GFR > 60 Random Glucose 98 Lactic Acid 2.0 Calcium 8.9 Magnesium 2.4 Total Bilirubin 0.6 AST 49 H ALT 56 H Alkaline Phosphatase 160 H Ammonia 41 Total Creatine Kinase 233 H Total Protein 8.9 H Albumin 4.4 Salicylates < 5.0 L Acetaminophen < 3 Ethyl Alcohol < 10 Imaging Radiologist's Impressions: Impressions Chest X-Ray 04/30/24 09:41 IMPRESSION: Low lung volumes. No acute cardiopulmonary abnormality. Electronically signed by: Demond Williamson MD 04/30/2024 10:07 AM EDT RP Cervical Spine CT 04/30/24 11:17 IMPRESSION: No evidence of fracture or malalignment of the cervical spine. Electronically signed by: Demond Williamson MD 04/30/2024 12:32 PM EDT RP Head CT 04/30/24 11:17 IMPRESSION: No acute intracranial abnormality. Electronically signed by: Demond Williamson MD 04/30/2024 12:27 PM EDT RP Assessment and Plan (1) Alcohol withdrawal: Status: Acute (2) Mood disorder: Status: Acute Plan 49 year old man admitted with acute metabolic encephalopathy secondary to drug use Acute metabolic encephalopathy secondary to drug overdose monitor mental status IV fluids Keep NPO until more awake Seizure secondary to drug overdose seizure precautions Leukocytosis mild likely from seizure, overdose no obvious infection Transaminitis likely secondary to alcohol use Mental health c/o SI psych consultation DVT prophylaxis with Lovenox Full code Quality Stroke Does the patient have a stroke diagnosis?: No VTE Prior VTE?: No VTE Risk Level:: Medical - moderate - high VTE Device Contraindication: Treatment Not Indicated VTE Drug Contraindication: N/A - Med Ordered
[2024-04-30] MEDS: Lactated Ringers 1,000 ML 100 ML IVCONT (15:43)
[2024-04-30] MEDS: Enoxaparin Sodium 40 MG/0.4 ML SYRINGE SUBCUT (15:43)
--- NOTE | 2024-04-30 18:10 | PHA.MEDREC ---
Addendum entered by Maggy Guzman RPh 04/30/24 18:52: [facility] REVIEWED Original Note: Pharmacy Consult ? Medication Reconciliation Pharmacy has completed the medication reconciliation. Tried speaking with patient but he was sleeping and non-responsive when I went to speak with him. I utilized the discharge packet from 04/25. I also called [facility] in [facility] and they confirmed the patient has not filled any medications with them since 04/09.
[2024-04-30 18:38] LABS: Appearance Urine Clear; Color Urine Dark Yellow; Glucose Urine UA Negative (Negative); Leukocyte Esterase Urine Negative (Negative); Nitrite Urine Negative (Negative); PH 5.5 (5.0-9.0); Specific Gravity - Urine 1.025 (1.005-1.025); UMIC TRIGGER UACC YES; Urine Blood Negative (Negative); Urine Ketones 80 mg/dL (Negative); Urine Protein 30 (1+) mg/dL (Neg-Trace)
[2024-04-30 18:49] LABS: Bacteria Urine None Seen (None Seen); Hyaline Casts Urine 0-2 /LPF (0-2); RBC Urine 0-2 /HPF (0-2); Squamous Epithelial Cell Urine 0-2 /HPF (0-2); WBC Urine 0-5 /HPF (0-5)
[2024-04-30 18:51] LABS: Amphetamine Screen Urine POSITIVE (Not Detect); Barbiturates, Urine POSITIVE (Not Detect); Benzodiazepines Screen Urine POSITIVE (Not Detect); Buprenorphine Scr Positive (Not Detect); Cannabinoid Screen Urine Not Detected (Not Detect); Cocaine Screen Urine POSITIVE (Not Detect); Fentanyl, urine POSITIVE (Not Detect); Methadone Screen, Urine Not Detected (Not Detect); Opiate Screen Urine POSITIVE (Not Detect); Oxycodone Screen Urine Not Detected (Not Detect); Phencyclidine Screen Urine POSITIVE (Not Detect)
[2024-04-30] MEDS: PHENobarbitaL sodium 130 MG/ML IM ONCE 234 MG IM (19:28)
[2024-04-30] MEDS: ondansetron HCL 4 MG/2 ML VIAL IVPUSH (21:54)
[2024-04-30] MEDS: PHENobarbitaL sodium 130 MG/ML VIAL IM Q3Hx2 175 MG IM (21:55)
[2024-04-30] MEDS: LORazepam 2 MG/ML VIAL 1 MG IM (22:30)
[2024-04-30 22:35] LABS: Glucose, Whole Blood 147 mg/dL (60-115)
[2024-04-30] MEDS: LORazepam 2 MG/ML VIAL 1 MG IVPUSH (22:35)
[2024-04-30] MEDS: levETIRAcetam in NaCl (iso-os) 1,500 MG/100 ML PIGGYBACK 400 MG IV (22:50)
--- NOTE | 2024-04-30 22:52 | P.EN_ITS ---
Event Note Date of Service: 04/30/24 Event Note: Rapid response note: Around 22:30 rapid response was called in because patient has having multiple seizures. I went in to check on the patient patient is alert and awake but has tonic- clonic seizure. Patient had total of 4 episodes. No tongue biting or urine ac cident. Each episode lasted for about 1-2 minutes. Patient was given Ativan 1 mg x 2. Followed by patient was given Keppra 1500 mg x 1. Given patient having recurrent episodes of seizures, discussed with ICU team who accepted the patient to the ICU possibly trauma team on the Versed drip and to monitor for airway protection. Patient being transferred to the ICU. Added thiamine folate and multivitamins Patient blood glucose level were 157. Saturating 98%. Systolic blood pressure 1 40s. Temperature 99 degrees F. Seizures likely in the setting of alcohol withdrawal. Patient drinks a gal of alcohol every day. Patient also uses IV drugs, PCP, crack cocaine. Patient also reports he uses benzos every day. Cellulitis: Patient noted to have cellulitis in his left forearm. Added vancomycin. Will defer to the ICU team to obtain ultrasound to rule out abscess in the left forearm. NPO IV fluids Time Spent With Patient Time: Total time managing care of this patient today ____ minutes.
[2024-04-30 23:07] LABS: MANUAL DIFF FLAG NO
[2024-04-30 23:08] LABS: Basophils Percent Auto 0.3 % (0-2); Eosinophils Percent Auto 0.3 % (0-4); Hemoglobin 12.5 g/dl (14.0-18.0); Imm Gran Abs Auto 0.05 X10*3/uL (0.00-0.03); Imm Gran Pct Auto 0.4 % (0.0-0.4); Lymphocytes Absolute Auto 1.8 X10*3/uL (1.2-4.9); Lymphocytes Percent Auto 13.2 % (20-40); Mean Corpuscular HGB Conc 33.8 g/dl (31.0-36.0); Mean Corpuscular Hemoglobin 27.6 pg (27.0-33.0); Mean Corpuscular Volume 81.7 fL (80.0-98.0); Mean Platelet Volume 9.2 fL (9.4-12.4); Monocytes Absolute Auto 1.2 X10*3/uL (0.1-1.2); Monocytes Percent Auto 8.4 % (2-11); Neutrophils Absolute Auto 10.8 x10*3/uL (2.0-8.3); Neutrophils Percent Auto 77.4 % (45-73); Platelet Count 498 X10*3/uL (160-400); Red Blood Count 4.53 X10*6/uL (4.60-5.80); Red Cell Distribution Width 15.6 % (11.0-16.0); White Blood Count 13.9 X10*3/uL (4.8-10.8)
[2024-04-30] MEDS: propofoL 1,000 MG/100 ML VIAL 25.02 MG IVCONT (23:20)
[2024-04-30 23:23] LABS: Alanine Aminotransferase 40 U/L (0-40); Albumin Level 3.6 g/dL (3.5-5.0); Alkaline Phosphatase 131 U/L (39-117); Anion Gap 13 (12-20); Aspartate Amino Transferase 41 U/L (5-37); Bilirubin Total 0.6 mg/dL (0.0-1.0); Blood Urea Nitrogen 11 mg/dL (9-16); Calcium 8.3 mg/dL (8.4-10.2); Carbon Dioxide 25 mmol/L (22-29); Chloride 103 mmol/L (96-108); Creatinine Clr Calc Pharmacy 137.7; Estimated Glomerular Filt Rate > 60; Glucose Random 132 mg/dL (60-115); Lactic Acid 1.4 mmol/L (0.5-2.0); Potassium 3.6 mmol/L (3.3-5.1); Sodium 137 mmol/L (135-145); Total Protein 7.4 g/dL (6.5-8.0)
[2024-04-30] MEDS: Rocuronium Bromide 50 MG/5 ML VIAL IVPUSH (23:25)
[2024-04-30] MEDS: propofoL 200 MG/20 ML VIAL 250 MG IVPUSH (23:30)
--- NOTE | 2024-04-30 23:30 | PM.CCN ---
Critical Care Event Note Summary Date of Service: 04/30/24 Code activated: No Narrative: 49-year-old male with history of polysubstance use disorder, alcohol use disorder, mood disorder Admitted for SI and a reported drug overdose attempt. The patient drinks a gallon of alcohol daily. Also uses IV drugs, PCP, crack cocaine, and takes benzos every day. A rapid response was called late this evening due to multiple seizures.? He was given Ativan IV push followed by Keppra 1500 mg. The patient continued to have recurrent episodes of seizures.? Nursing reported witnessing 7-9 tonic-clonic seizures from the time the rapid response was called.? He was transferred to the ICU for further management. During transfer down to the ER the patient became lethargic, was snoring and was difficult to arouse. He was intubated upon arrival for airway protection.? This case had a high probability of a clinically significant, sudden, or life threatening deterioration of this patient's condition which required my full and direct attention, intervention and personal management. Critical Care Time (minutes): 60
--- NOTE | 2024-04-30 23:30 | W.PM.CCHP ---
Procedures Date of Service Date of Service: 05/01/24 Intubation Consent for Procedure: Emergent-no informed consent obtained Time out performed: Yes Sedative: propofol Mg given: 250 Paralytic: rocuronium Mg given: 50 Laryngoscope: fiber optic video scope ET tube size: 8 ET tube uncuffed: No Tube secured depth (cm): 26 Tube secured location: lips Tube placement confirmation: visualized tube passing through cords, equal breath sounds bilaterally, no breath sounds over epigastrium and confirmation by capnometry Patient tolerated procedure: well and no complications Intubation complications: none
[2024-04-30] MEDS: Midazolam HCl 2 MG/2 ML VIAL IVPUSH (23:50)
[2024-05-01] VITALS (37 sets, daily range): BP systolic 94–136; BP diastolic 47–83; PULSE 76–95; RESP 12–20; TEMP 32–38.1; O2SAT 4–100; BMI 26.4
[2024-05-01] MEDS: Midazolam HCl/NS 50 MG/50 ML PLAST..BAG IVCONT ×2 (00:20→12:28)
[2024-05-01] MEDS: fentaNYL citrate/NS 1,000 MCG/100 ML PLAST..BAG 10 MCG IVCONT (00:20)
--- NOTE | 2024-05-01 00:56 | W.PM.CCHP ---
Procedures Date of Service Date of Service: 05/01/24 Central Line Placement Right IJ: Central Line Comments: Patient with very poor peripheral vascular access requiring multiple continuous IV medications. Right internal jugular triple lumen central venous catheter placed in usual sterile conditions under ultrasound guidance for appropriate vascular access without immediate complications. Central line position verified with Chest XRAY. Consent for Procedure: Emergent-no informed consent obtained Time out performed: Yes Sterile Technique Used: Yes Patient placed on monitor/pulse ox: Yes MD prep: mask, gown and gloves Central line prep: Chlorhexidine scrub and sterile drapes applied Ultrasound used for placement: Yes Central line lumen inserted: triple Post procedure: sutured in place, good blood return, all ports aspirated, flushed, capped and sterile dressing applied Post procedure x-ray: tip of catheter in good position and no pneumothorax seen Patient tolerated procedure: well and no complications Complications: none
--- NOTE | 2024-05-01 00:58 | PC.NURSE ---
At 2225 pt was noted be vomiting and later with sudden onset of generalized seizures. BP 128/62, HR 92, sPO2 94% RA, BLOOD GLUCOSE 147. Rapid respond called and pt positioned on his right side. He was suctioned and the seizures lasted for 30 seconds. IV push ativan 1mg attempted lost IV access. IM Ativan 1mg given. Additional 1mg IVPUSH given after IV access. In total pt had 9 episodes of seizures. IV Keppra drip 1500mg started. Pt subsequently moved to the ICU per MD order.
[2024-05-01] MEDS: 0.9 % Sodium Chloride Flush 3 ML SYRINGE IVFLUSH ×4 (02:10→23:16)
[2024-05-01] MEDS: Thiamine HCL 500 MG in 0.9 % Sodium Chloride 100 ML 210 MG IV (02:19)
[2024-05-01] MEDS: propofoL 1,000 MG/100 ML VIAL 25.02 MG IVCONT ×7 (02:27→23:04)
[2024-05-01] MEDS: vancomycin/NS 2,000 MG/500 ML PLAST..BAG 250 MG IV (02:39)
--- NOTE | 2024-05-01 03:30 | PC.NURSE ---
Prior to patient being transferred to ICU, patient informed this RN that his mom had 2 days prior and that contributed to SI attempt. MEDICAL SONOGRAPHER notified during RN to RN report.
[2024-05-01] MEDS: Pantoprazole Sodium 40 MG/10 ML VIAL IVPUSH (05:30)
[2024-05-01 05:40] LABS: VBG Base Excess 3.3 mmol/L; VBG HCO3 25 mmol/L (22-26); VBG pCO2 31 mmHg; VBG pH 7.52 (7.32-7.43); VBG pO2 49 mmHg
[2024-05-01 06:23] LABS: Venous Blood Gas Refer to POC result
[2024-05-01 06:29] LABS: MANUAL DIFF FLAG NO
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
[2024-05-01 06:42] LABS: Basophils Absolute Auto 0.1 X10*3/uL (0.0-0.2); Basophils Percent Auto 0.4 % (0-2); Eosinophils Absolute Auto 0.1 X10*3/uL (0.0-0.4); Eosinophils Percent Auto 1.1 % (0-4); Hematocrit 37.5 % (42.0-52.0); Hemoglobin 11.9 g/dl (14.0-18.0); Imm Gran Abs Auto 0.05 X10*3/uL (0.00-0.03); Imm Gran Pct Auto 0.4 % (0.0-0.4); Lymphocytes Percent Auto 15.6 % (20-40); Mean Corpuscular HGB Conc 31.7 g/dl (31.0-36.0); Mean Corpuscular Hemoglobin 26.9 pg (27.0-33.0); Mean Corpuscular Volume 84.7 fL (80.0-98.0); Monocytes Absolute Auto 0.9 X10*3/uL (0.1-1.2); Monocytes Percent Auto 7.2 % (2-11); Neutrophils Absolute Auto 9.7 x10*3/uL (2.0-8.3); Neutrophils Percent Auto 75.3 % (45-73); Platelet Count 479 X10*3/uL (160-400); Red Blood Count 4.43 X10*6/uL (4.60-5.80); Red Cell Distribution Width 15.5 % (11.0-16.0); White Blood Count 12.8 X10*3/uL (4.8-10.8)
[2024-05-01 06:47] LABS: Albumin Level 3.2 g/dL (3.5-5.0); Anion Gap 14 (12-20); Blood Urea Nitrogen 10 mg/dL (9-16); Calcium 8.2 mg/dL (8.4-10.2); Carbon Dioxide 24 mmol/L (22-29); Chloride 104 mmol/L (96-108); Creatinine Clr Calc Pharmacy 131.8; Estimated Glomerular Filt Rate > 60; Glucose Random 77 mg/dL (60-115); Magnesium 2.2 mg/dL (1.6-2.6); Phosphorus 2.3 mg/dL (2.7-4.5); Potassium 3.2 mmol/L (3.3-5.1); Sodium 139 mmol/L (135-145)
--- NOTE | 2024-05-01 06:59 | PHA.PROG ---
Admission Date/Time: April 30, 2024 14:51 Indication: SSSI Weight in k.4 kg Serum Creatinine - Last 168 Hours 04/30/24 04/30/24 05/01/24 09:29 23:01 06:14 Creatinine 0.83 0.67 0.70 Estimated CrCl and GFR - Last 168 Hours 04/30/24 04/30/24 05/01/24 09:29 23:01 06:14 Estim Creat Clear Calc 121.9 137.7 131.8 Estimated GFR > 60 > 60 > 60 Vancomycin Loading Dose: 2000 mg Current Vancomycin Dosing Regimen: 1250 mg q12h Vancomycin Monitoring using AUC goal of 400 - 600 range with trough as surrogate marker: 463, predicted trough 13.5 Date and Time for next Vancomycin Level to be drawn: 05/02 @ 1300 Pharmacist Comments on Vancomycin Plan: Vancomycin dosing will take advantage of [employer] as a clinical decision support tool that uses Bayesian modeling to calculate individual patient's pharmacokinetic parameters and forecast the patient's drug concentration time course with the target goal AUC 24 range of 400 - 600 mg/L/hr.
[2024-05-01] MEDS: PHENobarbitaL 15 MG TABLET 45 MG PO ×2 (08:03→21:47)
[2024-05-01] MEDS: Chlorhexidine Gluc Oral Rinse 15 ML MOUTHWASH BUCCAL ×3 (08:03→21:46)
[2024-05-01] MEDS: fentaNYL citrate/NS 1,000 MCG/100 ML PLAST..BAG 7.5 MCG IVCONT (08:04)
[2024-05-01] MEDS: Multivitamin TABLET 1 TAB PO (08:04)
[2024-05-01] MEDS: Folic Acid 1 MG TABLET PO (08:04)
--- NOTE | 2024-05-01 09:26 | MHC.CLN ---
PT IS INTUBATED AND SEDATED CURRENTLY NPO IF TF NEEDED; RECOMMEND PROMOTE AT MAX GOAL RATE 60ML/HR WITH 300ML FWF Q 6 HRS TO PROVIDE 1440KCALS (2100KCALS WITH SEDATION; 25KCALS/KG), 90G PROTEIN (1.08G/KG), 2408ML TOTAL WATER FROM FORMULA AND FLUSHES (29ML/KG) MONITOR TOLERANCE AND LYTES FOLLOWING FOR DIET ADVANCEMENT SEE FULL CLINICAL NUTRITION ASSESSMENT
--- NOTE | 2024-05-01 09:29 | PM.CCPN ---
Subjective Subjective Date of Service: 05/01/24 Interval History: admitted 04/30 PM d/t withdrawal seizure, obtundation Critical Care Time (minutes): 60 Physical Exam Vital Signs: Vital Signs: Last Vital Signs Temp 100.2 F 05/01/24 09:00 Pulse 85 05/01/24 09:00 Resp 18 05/01/24 09:00 BP 113/58 L 05/01/24 09:00 Pulse Ox 96 05/01/24 09:00 O2 Del Method Mechanical Ventil ation 05/01/24 09:00 O2 Flow Rate 2 04/30/24 15:47 FiO2 30 05/01/24 09:00 BMI result Body Mass Index 26.4 Const: Other: intubated, sedated, though appreciable spontaneous movements; diaphoretic General: no acute distress and well developed HEENT: Head: Yes normal to inspection, Yes normocephalic and Yes atraumatic Eyes: General: appearance normal, both eyes and all related structures Neck: Neck: Yes normal visual inspection, Yes full ROM, Yes no meningeal signs, Yes trachea midline and Yes supple Chest: Chest palpation & inspection: normal inspection of the chest Resp: Other: no appreciable rales, rhonchi, wheezing Effort & Inspection: normal respiratory effort Cardio: Rate: regular rate Rhythm: regular rhythm GI: Inspection: Yes normal to inspection, No Abdominal wall edema and No distended Palpation (GI): Soft to palpation, not firm, nontender, no guarding and not rigid Neuro: General: tone normal, moves all extremities and no meningeal signs Extrem: Other: appreciable induration 2 cm x 1 cm L forearm General: Yes capillary refill normal and Yes no clubbing, cyanosis or edema Psych: Other: unable to assess Objective Data Labs 05/01/24 06:14 05/01/24 06:14 Labs: Laboratory Results - last 24 hr 04/30/24 04/30/24 04/30/24 09:28 09:29 09:38 WBC 12.4 H RBC 5.17 Hgb 14.2 Hct 43.6 MCV 84.3 MCH 27.5 MCHC 32.6 RDW 15.9 Plt Count 585 H D MPV 9.3 L Immature Gran % (Auto) 0.4 Neut % (Auto) 73.5 H Lymph % (Auto) 16.1 L [place] % (Auto) 9.0 Eos % (Auto) 0.4 Baso % (Auto) 0.6 Lymph # (Auto) 2.0 [place] # (Auto) 1.1 Eos # (Auto) 0.1 Baso # (Auto) 0.1 Abs Immat Gran (auto) 0.05 H Absolute Neuts (auto) 9.1 H Absolute Nucleated RBC 0.000 Nucleated RBC % (auto) 0.0 VBG pH 7.35 VBG pCO2 49 VBG pO2 38 VBG HCO3 27 H VBG O2 Saturation 56.0 VBG Base Excess 1.4 Sodium 139 Potassium 4.0 Chloride 103 Carbon Dioxide 24 Anion Gap 16 BUN 15 Creatinine 0.83 Estim Creat Clear Calc 121.9 Estimated GFR > 60 POC Glucose Random Glucose 98 Lactic Acid 2.0 Calcium 8.9 Phosphorus Magnesium 2.4 Total Bilirubin 0.6 AST 49 H ALT 56 H Alkaline Phosphatase 160 H Ammonia 41 Total Creatine Kinase 233 H Total Protein 8.9 H Albumin 4.4 Urine Color Urine Appearance Urine pH Ur Specific [place] Urine Protein Urine Glucose (UA) Urine Ketones Urine Blood Urine Nitrite Ur Leukocyte Esterase Urine RBC Urine WBC Ur Squamous Epith Cells Urine Bacteria Hyaline Casts Salicylates < 5.0 L Urine Opiates Screen Ur Buprenorphine Scrn Ur Oxycodone Screen Urine Methadone Screen Urine Fentanyl Screen Acetaminophen < 3 Ur Barbiturates Screen Ur Phencyclidine Scrn Ur Amphetamines Screen U Benzodiazepines Scrn Urine Cocaine Screen U Marijuana (THC) Screen Ethyl Alcohol < 10 04/30/24 04/30/24 04/30/24 18:32 22:26 23:01 WBC 13.9 H RBC 4.53 L Hgb 12.5 L Hct 37.0 L MCV 81.7 MCH 27.6 MCHC 33.8 RDW 15.6 Plt Count 498 H MPV 9.2 L Immature Gran % (Auto) 0.4 Neut % (Auto) 77.4 H Lymph % (Auto) 13.2 L [place] % (Auto) 8.4 Eos % (Auto) 0.3 Baso % (Auto) 0.3 Lymph # (Auto) 1.8 [place] # (Auto) 1.2 Eos # (Auto) 0.0 Baso # (Auto) 0.0 Abs Immat Gran (auto) 0.05 H Absolute Neuts (auto) 10.8 H Absolute Nucleated RBC 0.000 Nucleated RBC % (auto) 0.0 VBG pH VBG pCO2 VBG pO2 VBG HCO3 VBG O2 Saturation VBG Base Excess Sodium 137 Potassium 3.6 Chloride 103 Carbon Dioxide 25 Anion Gap 13 BUN 11 Creatinine 0.67 Estim Creat Clear Calc 137.7 Estimated GFR > 60 POC Glucose 147 H Random Glucose 132 H Lactic Acid 1.4 Calcium 8.3 L D Phosphorus Magnesium Total Bilirubin 0.6 AST 41 H ALT 40 Alkaline Phosphatase 131 H Ammonia Total Creatine Kinase Total Protein 7.4 Albumin 3.6 Urine Color Dark Yellow Urine Appearance Clear Urine pH 5.5 Ur Specific [place] 1.025 Urine Protein 30 (1+) H Urine Glucose (UA) Negative Urine Ketones 80 Urine Blood Negative Urine Nitrite Negative Ur Leukocyte Esterase Negative Urine RBC 0-2 Urine WBC 0-5 Ur Squamous Epith Cells 0-2 Urine Bacteria None Seen Hyaline Casts 0-2 Salicylates Urine Opiates Screen POSITIVE H Ur Buprenorphine Scrn Positive H Ur Oxycodone Screen Not Detected Urine Methadone Screen Not Detected Urine Fentanyl Screen POSITIVE H Acetaminophen Ur Barbiturates Screen POSITIVE H Ur Phencyclidine Scrn POSITIVE H Ur Amphetamines Screen POSITIVE H U Benzodiazepines Scrn POSITIVE H Urine Cocaine Screen POSITIVE H U Marijuana (THC) Screen Not Detected Ethyl Alcohol 05/01/24 05/01/24 05:35 06:14 WBC 12.8 H RBC 4.43 L Hgb 11.9 L Hct 37.5 L MCV 84.7 MCH 26.9 L MCHC 31.7 RDW 15.5 Plt Count 479 H MPV 10.0 Immature Gran % (Auto) 0.4 Neut % (Auto) 75.3 H Lymph % (Auto) 15.6 L [place] % (Auto) 7.2 Eos % (Auto) 1.1 Baso % (Auto) 0.4 Lymph # (Auto) 2.0 [place] # (Auto) 0.9 Eos # (Auto) 0.1 Baso # (Auto) 0.1 Abs Immat Gran (auto) 0.05 H Absolute Neuts (auto) 9.7 H Absolute Nucleated RBC 0.000 Nucleated RBC % (auto) 0.0 VBG pH 7.52 H VBG pCO2 31 VBG pO2 49 VBG HCO3 25 VBG O2 Saturation 84.0 VBG Base Excess 3.3 Sodium 139 Potassium 3.2 L Chloride 104 Carbon Dioxide 24 Anion Gap 14 BUN 10 Creatinine 0.70 Estim Creat Clear Calc 131.8 Estimated GFR > 60 POC Glucose Random Glucose 77 Lactic Acid Calcium 8.2 L Phosphorus 2.3 L Magnesium 2.2 Total Bilirubin AST ALT Alkaline Phosphatase Ammonia Total Creatine Kinase Total Protein Albumin 3.2 L Urine Color Urine Appearance Urine pH Ur Specific [place] Urine Protein Urine Glucose (UA) Urine Ketones Urine Blood Urine Nitrite Ur Leukocyte Esterase Urine RBC Urine WBC Ur Squamous Epith Cells Urine Bacteria Hyaline Casts Salicylates Urine Opiates Screen Ur Buprenorphine Scrn Ur Oxycodone Screen Urine Methadone Screen Urine Fentanyl Screen Acetaminophen Ur Barbiturates Screen Ur Phencyclidine Scrn Ur Amphetamines Screen U Benzodiazepines Scrn Urine Cocaine Screen U Marijuana (THC) Screen Ethyl Alcohol Progress Note: A&P Assessment and plan (1) Seizure: Status: Acute (2) Alcohol withdrawal: Status: Acute (3) Polysubstance (excluding opioids) dependence: Status: Acute Plan Patient is a 49 Y M w/ polysubstance use disorder including PCP, cocaine, opioids, benzodiazepines and alcohol, mood disorder, initially presenting to emergency department on 04/30 w/ suicidal ideation/reported attempt w/ substances, initially admitted to medicine, developed multiple seizures, subsequently unresponsive, prompting ICU admission and intubation 05/01 N: intubated, sedated w/ propofol, midazolam, fentanyl gtts, wean as tolerated; to closely monitor breath-through seizure CV: no acute issues R: intubated in setting of post-ictal state, sedation, wean as tolerated GI: no acute issues : no acute issues H: no acute issues; chemical DVT prophylaxis w/ enoxaparin SQ ID: no overt stigmata of infection; to closely monitor E: to monitor hypo-/hyper-glycemia P: reported suicidal attempt, sitter Quality Stroke Does the patient have a stroke diagnosis?: No VTE Prior VTE?: No VTE Risk Level:: Medical - moderate - high VTE Device Contraindication: N/A - Device Ordered VTE Drug Contraindication: N/A - Med Ordered
[2024-05-01] MEDS: Thiamine HCL 200 MG in 0.9 % Sodium Chloride 100 ML 204 MG IV (09:34)
[2024-05-01] MEDS: Calcium Gluconate/NaCl,Iso-Osm 1 GM/50 ML PLAST..BAG IV (10:40)
[2024-05-01] MEDS: Potassium Phosphate/NS 15 MMOL/250 ML PLAST..BAG 62.5 MMOL IV (10:53)
[2024-05-01] MEDS: Famotidine/PF 20 MG/2 ML VIAL IVPUSH (10:54)
[2024-05-01] MEDS: Cyanocobalamin (Vitamin B-12) 1,000 MCG TABLET 1000 MCG PO (11:04)
[2024-05-01] MEDS: Albumin Human 25 % 50 ML 100 ML IV (11:04)
[2024-05-01] MEDS: levETIRAcetam in NaCl (iso-os) 1,500 MG/100 ML PIGGYBACK 400 MG IV ×2 (11:08→23:12)
[2024-05-01 11:32] LABS: Glucose, Whole Blood 106 mg/dL (60-115)
--- NOTE | 2024-05-01 14:43 | MHC.CM.PN ---
Addendum entered by Elisa Petty 05/01/24 14:52: Per [facility]: pt had a 2020 visit and listed his mother Laurita Mack at [phone] as his next of kin. Information given to ICU MD. CM to defer calling until MD has made contact re: medical condition. Original Note: Pt is intubated and unable to participate in CM assessment: review of pt's last visit in April 2024: pt states he is homeless and has no contacts - was cleared by psych and d/c'd with bus passes. [facility] Awaiting call backs from inquiry. CM to follow
[2024-05-01] MEDS: fentaNYL citrate/NS 1,000 MCG/100 ML PLAST..BAG 20 MCG IVCONT ×2 (15:20→19:55)
[2024-05-01] MEDS: Enoxaparin Sodium 40 MG/0.4 ML SYRINGE SUBCUT (15:42)
[2024-05-01] MEDS: vancomycin HCL 1,250 MG in 0.9 % Sodium Chloride 250 ML 166.67 MG IV (16:00)
--- NOTE | 2024-05-01 17:59 | PC.NURSE ---
ICU Day #:1 Vent Day #:1 Neuro Sedated, w.? propofol gtt, fentanyl gtt, and versed gtt per MAR, does not track, does not? follow commands, restless,? OSORIO spontaneously, Seizure precautions in place. Resp: Vent setting changed to PSV approx. at 1215 Cardiac: Sinus Rhythm? GI: unknown LBM , +bowel sounds, NPO, OGT in place/clamp, POC Q6hr,? : Jimenez in place, patent /draining. Skin: ?Impaired skin integrity - see skin assessment (repositioning maintained)? Infectious: On Vancomicyn? Lines: TLC R IJ, peripheral IV x2.
[2024-05-01 18:16] LABS: Glucose, Whole Blood 99 mg/dL (60-115)
[2024-05-02] VITALS (42 sets, daily range): BP systolic 93–134; BP diastolic 48–76; PULSE 74–99; RESP 14–19; TEMP 34.9–38.4; O2SAT 93–99; BMI 27.9
[2024-05-02 00:09] LABS: Glucose, Whole Blood 83 mg/dL (60-115)
[2024-05-02] MEDS: Midazolam HCl/NS 50 MG/50 ML PLAST..BAG IVCONT ×3 (00:23→16:53)
[2024-05-02] MEDS: fentaNYL citrate/NS 1,000 MCG/100 ML PLAST..BAG 20 MCG IVCONT ×6 (00:27→23:58)
[2024-05-02] MEDS: vancomycin HCL 1,250 MG in 0.9 % Sodium Chloride 250 ML 166.67 MG IV ×3 (02:28→22:35)
[2024-05-02] MEDS: propofoL 1,000 MG/100 ML VIAL 25.02 MG IVCONT ×7 (03:19→23:53)
[2024-05-02] MEDS: Pantoprazole Sodium 40 MG/10 ML VIAL IVPUSH (05:24)
[2024-05-02 05:43] LABS: VBG Base Excess 2.8 mmol/L; VBG HCO3 27 mmol/L (22-26); VBG pCO2 39 mmHg; VBG pH 7.43 (7.32-7.43); VBG pO2 53 mmHg
[2024-05-02 05:52] LABS: Venous Blood Gas Refer to POC result
[2024-05-02 05:54] LABS: MANUAL DIFF FLAG NO
[2024-05-02 05:56] LABS: Basophils Percent Auto 0.4 % (0-2); Eosinophils Absolute Auto 0.2 X10*3/uL (0.0-0.4); Eosinophils Percent Auto 2.4 % (0-4); Hemoglobin 11.3 g/dl (14.0-18.0); Imm Gran Abs Auto 0.05 X10*3/uL (0.00-0.03); Imm Gran Pct Auto 0.5 % (0.0-0.4); Lymphocytes Absolute Auto 1.5 X10*3/uL (1.2-4.9); Lymphocytes Percent Auto 15.1 % (20-40); Mean Corpuscular HGB Conc 32.3 g/dl (31.0-36.0); Mean Corpuscular Hemoglobin 27.3 pg (27.0-33.0); Mean Corpuscular Volume 84.5 fL (80.0-98.0); Mean Platelet Volume 9.4 fL (9.4-12.4); Monocytes Absolute Auto 0.7 X10*3/uL (0.1-1.2); Monocytes Percent Auto 7.2 % (2-11); Neutrophils Absolute Auto 7.4 x10*3/uL (2.0-8.3); Neutrophils Percent Auto 74.4 % (45-73); Platelet Count 402 X10*3/uL (160-400); Red Blood Count 4.14 X10*6/uL (4.60-5.80); Red Cell Distribution Width 15.7 % (11.0-16.0)
[2024-05-02 06:14] LABS: Glucose, Whole Blood 90 mg/dL (60-115)
[2024-05-02 06:18] LABS: Albumin Level 3.1 g/dL (3.5-5.0); Anion Gap 12 (12-20); Blood Urea Nitrogen 5 mg/dL (9-16); Calcium 8.2 mg/dL (8.4-10.2); Carbon Dioxide 24 mmol/L (22-29); Chloride 105 mmol/L (96-108); Creatinine Clr Calc Pharmacy 151.3; Estimated Glomerular Filt Rate > 60; Glucose Random 85 mg/dL (60-115); Magnesium 2.1 mg/dL (1.6-2.6); Phosphorus 2.9 mg/dL (2.7-4.5); Potassium 3.3 mmol/L (3.3-5.1); Sodium 138 mmol/L (135-145)
--- NOTE | 2024-05-02 06:24 | PC.NURSE ---
CARE ASSUMED 7PM..REMAINS INTUBATED...CPAP 5/PSV 10 24% FIO2 AT 7PM...RR 10-12...Ve 5-6 L/M...PROVIDER AT BEDSIDE...CHANGED TO VCV VENT SUPPORT...AC 16/TV 440/FIO2 40%/PEEP 5...CONTINUED ON PROPOFOL 50 MCG/KG/MIN/FENTANYL 200 MCG/HR/VERSED 4 MG/HR....SEDATE/SYNCHRONOUS AT REST...AGITATED WITH POSITIONING...OSORIO..DOES NOT FOLLOW COMMANDS...RESTFUL WHEN UNSTIMULATED...KEPPRA IV AND PHENOBARBITOL VIA OG-TUBE PER APR...BILATERAL WRIST RESTRAINTS MAINTAINED FOR AIRWAY SAFETY
[2024-05-02] MEDS: Potassium Chloride/H20 40 MEQ/100 ML PIGGYBACK 100 MEQ IV (06:47)
[2024-05-02] MEDS: 0.9 % Sodium Chloride Flush 3 ML SYRINGE IVFLUSH ×2 (08:04→15:35)
[2024-05-02] MEDS: Famotidine/PF 20 MG/2 ML VIAL IVPUSH (08:52)
[2024-05-02] MEDS: Thiamine HCL 100 MG TABLET PO (08:52)
[2024-05-02] MEDS: Cyanocobalamin (Vitamin B-12) 1,000 MCG TABLET 1000 MCG PO (08:52)
[2024-05-02] MEDS: Folic Acid 1 MG TABLET PO (08:52)
[2024-05-02] MEDS: Chlorhexidine Gluc Oral Rinse 15 ML MOUTHWASH BUCCAL ×3 (08:52→20:52)
[2024-05-02] MEDS: PHENobarbitaL 15 MG TABLET 45 MG PO ×2 (08:52→20:51)
--- NOTE | 2024-05-02 08:57 | PM.CCPN ---
Subjective Subjective Date of Service: 05/02/24 Interval History: no significant overnight events Critical Care Time (minutes): 60 Physical Exam Vital Signs: Vital Signs: Last Vital Signs Temp 99.7 F 05/02/24 08:00 Pulse 86 05/02/24 08:00 Resp 16 05/02/24 08:00 BP 119/69 05/02/24 08:00 Pulse Ox 99 05/02/24 08:00 O2 Del Method Mechanical Ventil ation 05/02/24 08:00 O2 Flow Rate 2 04/30/24 15:47 FiO2 30 05/02/24 08:00 BMI result Body Mass Index 27.9 Const: Other: intubated, sedated; appreciable spontaneous movements; appreciable diaphoresis General: no acute distress and well developed HEENT: Head: Yes normal to inspection, Yes normocephalic and Yes atraumatic Eyes: General: appearance normal, both eyes and all related structures Neck: Neck: Yes normal visual inspection, Yes full ROM, Yes no meningeal signs, Yes trachea midline and Yes supple Chest: Chest palpation & inspection: normal inspection of the chest Resp: Other: no appreciable rales, rhonchi, wheezing Effort & Inspection: normal respiratory effort Cardio: Rate: regular rate Rhythm: regular rhythm GI: Inspection: Yes normal to inspection, No Abdominal wall edema and No distended Palpation (GI): Soft to palpation, not firm, nontender, no guarding and not rigid Skin: General skin exam: no rashes or lesions noted Neuro: General: tone normal, moves all extremities and no meningeal signs Extrem: Other: appreciable 1+ pitting edema to bilateral shins General: Yes normal to inspection, Yes full ROM and Yes capillary refill normal Psych: Other: intermittent agitation Objective Data Labs 05/02/24 05:31 05/02/24 05:31 Labs: Laboratory Results - last 24 hr 05/01/24 05/01/24 05/01/24 11:08 18:13 23:58 WBC RBC Hgb Hct MCV MCH MCHC RDW Plt Count MPV Immature Gran % (Auto) Neut % (Auto) Lymph % (Auto) [place] % (Auto) Eos % (Auto) Baso % (Auto) Lymph # (Auto) [place] # (Auto) Eos # (Auto) Baso # (Auto) Abs Immat Gran (auto) Absolute Neuts (auto) Absolute Nucleated RBC Nucleated RBC % (auto) VBG pH VBG pCO2 VBG pO2 VBG HCO3 VBG O2 Saturation VBG Base Excess Sodium Potassium Chloride Carbon Dioxide Anion Gap BUN Creatinine Estim Creat Clear Calc Estimated GFR POC Glucose 106 99 83 Random Glucose Calcium Phosphorus Magnesium Albumin 05/02/24 05/02/24 05/02/24 05:31 05:40 06:10 WBC 10.0 RBC 4.14 L Hgb 11.3 L Hct 35.0 L MCV 84.5 MCH 27.3 MCHC 32.3 RDW 15.7 Plt Count 402 H MPV 9.4 Immature Gran % (Auto) 0.5 H Neut % (Auto) 74.4 H Lymph % (Auto) 15.1 L [place] % (Auto) 7.2 Eos % (Auto) 2.4 Baso % (Auto) 0.4 Lymph # (Auto) 1.5 [place] # (Auto) 0.7 Eos # (Auto) 0.2 Baso # (Auto) 0.0 Abs Immat Gran (auto) 0.05 H Absolute Neuts (auto) 7.4 Absolute Nucleated RBC 0.000 Nucleated RBC % (auto) 0.0 VBG pH 7.43 VBG pCO2 39 VBG pO2 53 VBG HCO3 27 H VBG O2 Saturation 85.0 VBG Base Excess 2.8 Sodium 138 Potassium 3.3 Chloride 105 Carbon Dioxide 24 Anion Gap 12 BUN 5 L Creatinine 0.66 Estim Creat Clear Calc 151.3 Estimated GFR > 60 POC Glucose 90 Random Glucose 85 Calcium 8.2 L Phosphorus 2.9 Magnesium 2.1 Albumin 3.1 L Microbiology Microbiology Results: Microbiology 04/30/24 10:50 Blood - Venous Blood Culture - Preliminary No growth after 24 hours. 04/30/24 09:27 Blood - Venous Blood Culture - Preliminary No growth after 24 hours. Progress Note: A&P Assessment and plan (1) Polysubstance (excluding opioids) dependence: Status: Acute (2) Alcohol withdrawal: Status: Acute (3) Seizure: Status: Acute Plan Patient is a 49 Y M w/ polysubstance use disorder including PCP, cocaine, opioids, benzodiazepines and alcohol, mood disorder, initially presenting to emergency department on 04/30 w/ suicidal ideation/reported attempt w/ substances, initially admitted to medicine, developed multiple seizures, subsequently unresponsive, prompting ICU admission and intubation 05/01 N: intubated, sedated w/ propofol, midazolam, fentanyl gtts, wean as tolerated; to closely monitor break-through seizure CV: no acute issues R: intubated 05/01 in setting of post-ictal state, sedation, wean as tolerated GI: no acute issues : no acute issues H: no acute issues; chemical DVT prophylaxis w/ enoxaparin SQ ID: no overt stigmata of infection; to closely monitor E: to monitor hypo-/hyper-glycemia P: reported suicidal attempt, sitter Quality Stroke Does the patient have a stroke diagnosis?: No VTE Prior VTE?: No VTE Risk Level:: Medical - moderate - high VTE Device Contraindication: N/A - Device Ordered VTE Drug Contraindication: N/A - Med Ordered
[2024-05-02] MEDS: Albumin Human 25 % 50 ML 100 ML IV (09:38)
[2024-05-02] MEDS: Calcium Chloride 1 GM/10 ML SYRINGE IVPUSH (09:40)
--- NOTE | 2024-05-02 09:48 | MHC.CLN ---
F/U PT IS INTUBATED AND SEDATED DISCUSSED AT ROUNDS WITH MD PT TO REMAIN NPO PER MD IF TF NEEDED; RECOMMEND PROMOTE AT MAX GOAL RATE 60ML/HR WITH 300ML FWF Q 6 HRS TO PROVIDE 1440KCALS (2100KCALS WITH SEDATION; 25KCALS/KG), 90G PROTEIN (1.08G/KG), 2408ML TOTAL WATER FROM FORMULA AND FLUSHES (29ML/KG) MONITOR TOLERANCE AND LYTES FOLLOWING FOR DIET ADVANCEMENT
[2024-05-02] MEDS: levETIRAcetam in NaCl (iso-os) 1,500 MG/100 ML PIGGYBACK 400 MG IV ×2 (10:17→22:35)
[2024-05-02] MEDS: Nystatin Powder 15 GM BOTTLE 1 APPL TOPICAL ×2 (10:38→20:52)
[2024-05-02 12:13] LABS: Glucose, Whole Blood 105 mg/dL (60-115)
--- NOTE | 2024-05-02 13:39 | MHC.CM.PN ---
Pt remains intubated in ICU: Plans for the day include vent weaning. MD to attempt contact with pt's family from number obtained on 05/01. CM to follow
[2024-05-02 13:50] LABS: Vancomycin Trough 5.4 mcg/mL (10.0-20.0)
--- NOTE | 2024-05-02 14:04 | HO.WOUND ---
Wound Consult: Initial 49yr old?[place] [facility] [place] See progress notes and H&P for detailed history.? Wound consult placed for Right and left foot.? Patient is intubated an remains in ICU level of care.? 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 The left inner heel was noted for lresolving blister. No oozing, no erythema noted. There are various areas of purple pigmentation and scabs not consistent with pressure. Unclear if these are related to injection sites. Etiology is not clear at this time. Topical recommendation are to wash feet and keep clean. Areas of dried scab and erythema I would recommend paint with betadine and leave REMI. Recommendations: 1. Bilateral Feet - Cleanse with soap and water, dry well. [place] scabs with betadine leave REMI. Re-consult wound care Nurse for wound deterioration or wound changes.
--- NOTE | 2024-05-02 14:13 | PC.NURSE ---
ICU Day #: 2 Vent Day #:2 ? Neuro: Continues Sedated, w.? propofol gtt, fentanyl gtt, and versed gtt per MAR, opens eyes, does not track, does not? follow commands, restless, attempting to remove airway. ?OSORIO spontaneously, Seizure precautions in place. Resp: PS vent. support. Cardiac: Sinus Rhythm? GI: unknown LBM , +bowel sounds, NPO, OGT in place/clamp, POC Q6hr,? : Jimenez in place, patent /draining. Skin: ?Impaired skin integrity - see skin assessment (foam dsg/nystatin applied) (repositioning maintained)? Infectious: On Vancomicyn ?Lines: TLC R IJ, peripheral IV x2.
[2024-05-02] MEDS: Enoxaparin Sodium 40 MG/0.4 ML SYRINGE SUBCUT (14:32)
[2024-05-02] MEDS: cloNIDine 0.3 MG PATCH.TDWK TRANSDERMA (16:24)
[2024-05-02 17:17] LABS: Glucose, Whole Blood 95 mg/dL (60-115)
[2024-05-03] VITALS (34 sets, daily range): BP systolic 90–171; BP diastolic 45–92; PULSE 70–105; RESP 11–26; TEMP 34.5–37.5; O2SAT 93–100; BMI 27.9
[2024-05-03] MEDS: 0.9 % Sodium Chloride Flush 3 ML SYRINGE IVFLUSH ×4 (01:33→23:12)
[2024-05-03] MEDS: propofoL 1,000 MG/100 ML VIAL 25.02 MG IVCONT ×6 (02:58→20:39)
--- NOTE | 2024-05-03 03:48 | HE.ICUCC ---
ICU Critical Care Nursing Note ICU Day #3: Vent Day #:3 Neuro: Intubated/ sedated , Propofol, Versed, and Fentanyl infusing / see MAR. Patient opens eyes, does not track. OSORIO/ Seizure precautions in place. Cardiac:Sinus Rhythm on telemetry. Resp:Ventilated on ACVC settings. LS clear GI/: Positive BS x4, unknown last BM, OG tube clamped.. Jimenez patent draining green tinged urine. Integumentary/Musculoskeletal:Fungal rash on ivana area/buttocks. Blisters on bilateral lower extremities, at dressing site of TLC RIJ, 2 peripheral IV's left arm Psychosocial (family etc.):No contacts or family noted Infectious Disease: Pt on Vancomycin Central Lines:[facility] RIJ
[2024-05-03] MEDS: fentaNYL citrate/NS 1,000 MCG/100 ML PLAST..BAG 20 MCG IVCONT ×4 (04:53→19:38)
[2024-05-03] MEDS: Midazolam HCl/NS 50 MG/50 ML PLAST..BAG IVCONT ×2 (04:53→18:22)
[2024-05-03 05:36] LABS: VBG Base Excess 5.4 mmol/L; VBG HCO3 29 mmol/L (22-26); VBG pCO2 43 mmHg; VBG pH 7.44 (7.32-7.43); VBG pO2 55 mmHg
[2024-05-03 05:43] LABS: MANUAL DIFF FLAG NO
[2024-05-03 05:49] LABS: Basophils Percent Auto 0.5 % (0-2); Eosinophils Absolute Auto 0.3 X10*3/uL (0.0-0.4); Eosinophils Percent Auto 3.6 % (0-4); Hematocrit 34.2 % (42.0-52.0); Hemoglobin 11.2 g/dl (14.0-18.0); Imm Gran Abs Auto 0.03 X10*3/uL (0.00-0.03); Imm Gran Pct Auto 0.4 % (0.0-0.4); Lymphocytes Absolute Auto 1.5 X10*3/uL (1.2-4.9); Lymphocytes Percent Auto 19.8 % (20-40); Mean Corpuscular HGB Conc 32.7 g/dl (31.0-36.0); Mean Corpuscular Hemoglobin 27.5 pg (27.0-33.0); Mean Platelet Volume 9.5 fL (9.4-12.4); Monocytes Absolute Auto 0.6 X10*3/uL (0.1-1.2); Monocytes Percent Auto 8.2 % (2-11); Neutrophils Absolute Auto 4.9 x10*3/uL (2.0-8.3); Neutrophils Percent Auto 67.5 % (45-73); Platelet Count 408 X10*3/uL (160-400); Red Blood Count 4.07 X10*6/uL (4.60-5.80); Red Cell Distribution Width 15.4 % (11.0-16.0); White Blood Count 7.3 X10*3/uL (4.8-10.8)
[2024-05-03 05:51] LABS: Venous Blood Gas Refer to POC result
[2024-05-03] MEDS: Pantoprazole Sodium 40 MG/10 ML VIAL IVPUSH (05:56)
[2024-05-03 06:00] LABS: Albumin Level 3.2 g/dL (3.5-5.0); Anion Gap 13 (12-20); Blood Urea Nitrogen 6 mg/dL (9-16); Calcium 8.5 mg/dL (8.4-10.2); Carbon Dioxide 24 mmol/L (22-29); Chloride 105 mmol/L (96-108); Creatinine Clr Calc Pharmacy 149.1; Estimated Glomerular Filt Rate > 60; Glucose Random 82 mg/dL (60-115); Magnesium 1.9 mg/dL (1.6-2.6); Phosphorus 3.6 mg/dL (2.7-4.5); Potassium 3.4 mmol/L (3.3-5.1); Sodium 139 mmol/L (135-145)
--- NOTE | 2024-05-03 06:25 | HO.SKINPHOTO ---
Location:right neck Category:blister Stage: Length: Width: Depth: cm
[2024-05-03] MEDS: vancomycin HCL 1,250 MG in 0.9 % Sodium Chloride 250 ML 166.67 MG IV (06:48)
[2024-05-03] MEDS: Potassium Chloride Packet 20 MEQ PACKET 40 MEQ PO (06:48)
[2024-05-03] MEDS: Chlorhexidine Gluc Oral Rinse 15 ML MOUTHWASH BUCCAL ×3 (08:08→20:38)
[2024-05-03] MEDS: Cyanocobalamin (Vitamin B-12) 1,000 MCG TABLET 1000 MCG PO (08:08)
[2024-05-03] MEDS: Thiamine HCL 100 MG TABLET PO (08:08)
[2024-05-03] MEDS: Folic Acid 1 MG TABLET PO (08:08)
[2024-05-03] MEDS: PHENobarbitaL 15 MG TABLET PO ×2 (08:09→20:39)
[2024-05-03] MEDS: Famotidine/PF 20 MG/2 ML VIAL IVPUSH (08:09)
--- NOTE | 2024-05-03 08:13 | P.PNCC_ITS ---
Subjective Subjective Date of Service: 05/03/24 Interval History: no significant overnight events Critical Care Time (minutes): 60 Physical Exam 2 Vital Signs: Vital Signs: Last Vital Signs Temp 99.1 F 05/03/24 08:00 Pulse 83 05/03/24 08:00 Resp 16 05/03/24 08:00 BP 117/61 05/03/24 08:00 Pulse Ox 96 05/03/24 08:00 O2 Del Method Mechanical Ventil ation 05/03/24 08:00 O2 Flow Rate 2 04/30/24 15:47 FiO2 30 05/03/24 08:00 BMI result Body Mass Index 27.9 Const: Other: intubated, appreciable intermittent agitation, restlessness despite multiple, maximum sedating medications General: well developed; No no acute distress HEENT: Head: Yes normal to inspection, Yes normocephalic and Yes atraumatic Eyes: General: appearance normal, both eyes and all related structures Neck: Neck: Yes normal visual inspection, Yes full ROM, Yes no meningeal signs, Yes trachea midline and Yes supple Chest: Chest palpation & inspection: normal inspection of the chest Resp: Other: no appreciable rales, rhonchi, wheezing Effort & Inspection: normal respiratory effort Cardio: Rate: regular rate Rhythm: regular rhythm GI: Inspection: Yes normal to inspection, No Abdominal wall edema and No distended Palpation (GI): Soft to palpation, not firm, nontender, no guarding and not rigid Skin: General skin exam: no rashes or lesions noted Neuro: General: tone normal, moves all extremities and no meningeal signs Extrem: Other: appreciable 1+ pitting edema to bilateral shins General: Yes normal to inspection, Yes full ROM and Yes capillary refill normal Psych: Other: intermittent agitation Objective Data Labs 05/03/24 05:25 05/03/24 05:25 Labs: Laboratory Results - last 24 hr 05/02/24 05/02/24 05/02/24 12:00 13:24 17:06 WBC RBC Hgb Hct MCV MCH MCHC RDW Plt Count MPV Immature Gran % (Auto) Neut % (Auto) Lymph % (Auto) [place] % (Auto) Eos % (Auto) Baso % (Auto) Lymph # (Auto) [place] # (Auto) Eos # (Auto) Baso # (Auto) Abs Immat Gran (auto) Absolute Neuts (auto) Absolute Nucleated RBC Nucleated RBC % (auto) VBG pH VBG pCO2 VBG pO2 VBG HCO3 VBG O2 Saturation VBG Base Excess Sodium Potassium Chloride Carbon Dioxide Anion Gap BUN Creatinine Estim Creat Clear Calc Estimated GFR POC Glucose 105 95 Random Glucose Calcium Phosphorus Magnesium Albumin Vancomycin Trough 5.4 L 05/03/24 05/03/24 05:25 05:33 WBC 7.3 RBC 4.07 L Hgb 11.2 L Hct 34.2 L MCV 84.0 MCH 27.5 MCHC 32.7 RDW 15.4 Plt Count 408 H MPV 9.5 Immature Gran % (Auto) 0.4 Neut % (Auto) 67.5 Lymph % (Auto) 19.8 L [place] % (Auto) 8.2 Eos % (Auto) 3.6 Baso % (Auto) 0.5 Lymph # (Auto) 1.5 [place] # (Auto) 0.6 Eos # (Auto) 0.3 Baso # (Auto) 0.0 Abs Immat Gran (auto) 0.03 Absolute Neuts (auto) 4.9 Absolute Nucleated RBC 0.000 Nucleated RBC % (auto) 0.0 VBG pH 7.44 H VBG pCO2 43 VBG pO2 55 VBG HCO3 29 H VBG O2 Saturation 86.0 VBG Base Excess 5.4 Sodium 139 Potassium 3.4 Chloride 105 Carbon Dioxide 24 Anion Gap 13 BUN 6 L Creatinine 0.67 Estim Creat Clear Calc 149.1 Estimated GFR > 60 POC Glucose Random Glucose 82 Calcium 8.5 Phosphorus 3.6 Magnesium 1.9 Albumin 3.2 L Vancomycin Trough Microbiology Microbiology Results: Microbiology 04/30/24 10:50 Blood - Venous Blood Culture - Preliminary No growth after 48 hours. 04/30/24 09:27 Blood - Venous Blood Culture - Preliminary No growth after 48 hours. Progress Note: A&P Assessment and plan (1) Polysubstance (excluding opioids) dependence: Status: Acute (2) Seizure: Status: Acute Plan Patient is a 49 Y M w/ polysubstance use disorder including PCP, cocaine, opioids, benzodiazepines and alcohol, mood disorder, initially presenting to emergency department on 04/30 w/ suicidal ideation/reported attempt w/ substances, initially admitted to medicine, developed multiple seizures, subsequently unresponsive, prompting ICU admission and intubation 05/01 N: intubated, sedated w/ propofol, midazolam, fentanyl gtts, wean as tolerated; to closely monitor break-through seizure CV: no acute issues R: intubated 05/01 in setting of post-ictal state, sedation, wean as tolerated GI: no acute issues : no acute issues H: no acute issues; chemical DVT prophylaxis w/ enoxaparin SQ ID: no overt stigmata of systemic infection; to closely monitor E: to monitor hypo-/hyper-glycemia P: reported suicidal attempt, sitter; polysubstance misuse, including alcohol withdrawal, phenobarbital protocol S: of note, initially attempted to contact patient's mother, though it appears patient's mother recently unfortunately, to continue to find additional contacts Quality Stroke Does the patient have a stroke diagnosis?: No VTE Prior VTE?: No VTE Risk Level:: Medical - moderate - high VTE Device Contraindication: N/A - Device Ordered VTE Drug Contraindication: N/A - Med Ordered
[2024-05-03] MEDS: Nystatin Powder 15 GM BOTTLE 1 APPL TOPICAL ×2 (08:17→20:38)
[2024-05-03] MEDS: Albumin Human 25 % 50 ML 100 ML IV (08:32)
--- NOTE | 2024-05-03 09:41 | MHC.CLN ---
F/U PT REMAINS INTUBATED AND SEDATED DISCUSSED CASE WITH MD RECOMMEND PROMOTE AT MAX GOAL RATE 60ML/HR WITH 300ML FWF Q 6 HRS TO PROVIDE 1440KCALS (2100KCALS WITH SEDATION; 25KCALS/KG), 90G PROTEIN (1.08G/KG), 2408ML TOTAL WATER FROM FORMULA AND FLUSHES (29ML/KG) MONITOR TOLERANCE AND LYTES
[2024-05-03] MEDS: levETIRAcetam in NaCl (iso-os) 1,500 MG/100 ML PIGGYBACK 400 MG IV ×2 (11:00→23:07)
[2024-05-03 11:21] LABS: Glucose, Whole Blood 89 mg/dL (60-115)
--- NOTE | 2024-05-03 12:29 | MHC.CM.PN ---
Pt remains on ventilatory support in ICU: Pt's ex step mother Lorena Barbosa contacted at [phone]: she will call pt's father Roni Edwards and ask him to contact ICU. Contact given to MD. HOLLAND to follow for finalization of d/c planning needs.
[2024-05-03 13:08] LABS: Vancomycin Random 5.5 mcg/mL (15-20)
--- NOTE | 2024-05-03 13:38 | HE.PHANOTE ---
Re Vanco Trough low and calculated AUC just under therapeutic. Will switch to 1500mg q8h, This should achieve an AUC of 475 mg/L
[2024-05-03] MEDS: Enoxaparin Sodium 40 MG/0.4 ML SYRINGE SUBCUT (15:55)
[2024-05-03] MEDS: vancomycin HCL 1,500 MG in 0.9 % Sodium Chloride 500 ML 333.33 MG IV ×2 (15:55→21:58)
[2024-05-03 18:18] LABS: Glucose, Whole Blood 77 mg/dL (60-115)
--- NOTE | 2024-05-03 19:10 | HE.ICUCC ---
ICU Critical Care Nursing Note ICU Day #:3 Vent Day #:3 Neuro:Alert nods appropriately at times, restless maxed on Prop, Fentanyl and versed, see MAR Cardiac:SR, slight generalized edema, clonidine patch to right upper arm intact. Resp: intubated, switched to PSV 10/5 this morning, tolerating well GI/:tube feeds ordered and started, tellez removed at 1040. no urine noted at 1640, bladder scan 487mls, straight cath for 550mls, purewick reapplied due to void 2330 Endocrine: POC Q6 Integumentary/Musculoskeletal:restless and moving all extremities Central Lines:TLC to right IJ
[2024-05-03] MEDS: Midazolam HCl 2 MG/2 ML VIAL IVPUSH (22:08)
[2024-05-03] MEDS: Cisatracurium Besylate 20 MG/10 ML VIAL IVPUSH (22:23)
[2024-05-04] VITALS (40 sets, daily range): BP systolic 79–144; BP diastolic 41–79; PULSE 52–78; RESP 9–16; TEMP 34.9–37.8; O2SAT 92–99; BMI 27.1
[2024-05-04] MEDS: propofoL 1,000 MG/100 ML VIAL 25.02 MG IVCONT ×7 (00:20→21:50)
[2024-05-04] MEDS: fentaNYL citrate/NS 1,000 MCG/100 ML PLAST..BAG 20 MCG IVCONT ×6 (00:30→23:06)
[2024-05-04] MEDS: Midazolam HCl/NS 50 MG/50 ML PLAST..BAG IVCONT ×2 (04:48→18:18)
[2024-05-04 04:54] LABS: VBG Base Excess 3.2 mmol/L; VBG HCO3 27 mmol/L (22-26); VBG pCO2 42 mmHg; VBG pH 7.42 (7.32-7.43); VBG pO2 48 mmHg
[2024-05-04 04:56] LABS: Venous Blood Gas Refer to POC result
[2024-05-04 05:00] LABS: MANUAL DIFF FLAG NO
[2024-05-04 05:02] LABS: Basophils Percent Auto 0.5 % (0-2); Eosinophils Absolute Auto 0.2 X10*3/uL (0.0-0.4); Eosinophils Percent Auto 3.3 % (0-4); Hematocrit 34.2 % (42.0-52.0); Hemoglobin 10.9 g/dl (14.0-18.0); Imm Gran Abs Auto 0.02 X10*3/uL (0.00-0.03); Imm Gran Pct Auto 0.3 % (0.0-0.4); Lymphocytes Absolute Auto 1.3 X10*3/uL (1.2-4.9); Lymphocytes Percent Auto 20.9 % (20-40); Mean Corpuscular HGB Conc 31.9 g/dl (31.0-36.0); Mean Corpuscular Volume 84.9 fL (80.0-98.0); Mean Platelet Volume 9.4 fL (9.4-12.4); Monocytes Absolute Auto 0.5 X10*3/uL (0.1-1.2); Monocytes Percent Auto 7.4 % (2-11); Neutrophils Absolute Auto 4.3 x10*3/uL (2.0-8.3); Neutrophils Percent Auto 67.6 % (45-73); Platelet Count 416 X10*3/uL (160-400); Red Blood Count 4.03 X10*6/uL (4.60-5.80); Red Cell Distribution Width 15.1 % (11.0-16.0); White Blood Count 6.4 X10*3/uL (4.8-10.8)
[2024-05-04 05:23] LABS: Albumin Level 3.3 g/dL (3.5-5.0); Anion Gap 13 (12-20); Blood Urea Nitrogen 7 mg/dL (9-16); Calcium 8.7 mg/dL (8.4-10.2); Carbon Dioxide 24 mmol/L (22-29); Chloride 104 mmol/L (96-108); Creatinine Clr Calc Pharmacy 158.5; Estimated Glomerular Filt Rate > 60; Glucose Random 111 mg/dL (60-115); Magnesium 1.9 mg/dL (1.6-2.6); Phosphorus 3.5 mg/dL (2.7-4.5); Potassium 3.6 mmol/L (3.3-5.1); Sodium 137 mmol/L (135-145)
[2024-05-04] MEDS: vancomycin HCL 1,500 MG in 0.9 % Sodium Chloride 500 ML 333.33 MG IV (05:41)
[2024-05-04] MEDS: Pantoprazole Sodium 40 MG/10 ML VIAL IVPUSH (05:42)
--- NOTE | 2024-05-04 07:21 | PC.NURSE ---
Critical Care Nursing Note 05-04-2024 0630 Neuro:patient lightly sedated at start of shift, following simple commands, opening eyes, tracking. after increase in versed gtt, RASS of -3 obtained Cardiac: sinus rhythm on telemetry Resp: patient remained on PS vent settings overnight GI/:? external tellez, 0015 bladder scan 375 post void straight cath performed for 400 ml, 624 bladder scan 378ml, Swathi Leone, DANTE notified order for tellez catheter placement? Endocrine: N/A Integumentary/Musculoskeletal:? open blister RIJ dressing site, fungal to groin, bruise to L ear Psychosocial (family etc.): patient requiring frequent redirection early in shift, 1:1 sitter ID:? vancomycin? Central Lines:RIJ TLC Events: 2199 patient becoming more agitated and restless attempting to sit up and dislodge ETT, Swathi Leone [employer] notified, 20 mg nimbex administered with some effect. After approximately 60 minutes patient wakeful and moving all extremities, versed gtt increased to 6 mg/hr, titrated down to 4mg/hr by end of shift.?? Plan moving forward:wean sedation, wean ventilator, phenobarbital protocol
[2024-05-04] MEDS: Thiamine HCL 100 MG TABLET PO (08:05)
[2024-05-04] MEDS: Chlorhexidine Gluc Oral Rinse 15 ML MOUTHWASH BUCCAL ×3 (08:05→20:14)
[2024-05-04] MEDS: Folic Acid 1 MG TABLET PO (08:05)
[2024-05-04] MEDS: 0.9 % Sodium Chloride Flush 3 ML SYRINGE IVFLUSH ×3 (08:05→23:06)
[2024-05-04] MEDS: PHENobarbitaL 15 MG TABLET PO ×2 (08:05→20:14)
[2024-05-04] MEDS: Cyanocobalamin (Vitamin B-12) 1,000 MCG TABLET 1000 MCG PO (08:05)
[2024-05-04] MEDS: Nystatin Powder 15 GM BOTTLE 1 APPL TOPICAL ×2 (08:06→20:14)
[2024-05-04] MEDS: Famotidine/PF 20 MG/2 ML VIAL IVPUSH (08:06)
--- NOTE | 2024-05-04 09:24 | PM.CCPN ---
Subjective Subjective Date of Service: 05/04/24 Interval History: of note, significant agitation 05/04 PM, unable to be verbally re-directable, c/f safety Critical Care Time (minutes): 60 Physical Exam Vital Signs: Vital Signs: Last Vital Signs Temp 97.4 F 05/04/24 08:00 Pulse 65 05/04/24 08:00 Resp 15 05/04/24 08:00 BP 106/55 L 05/04/24 08:00 Pulse Ox 98 05/04/24 08:00 O2 Del Method Mechanical Ventil ation 05/04/24 08:00 O2 Flow Rate 2 04/30/24 15:47 FiO2 30 05/04/24 08:16 BMI result Body Mass Index 27.1 Const: Other: intubated, sedated; appreciable spontaneous movements General: no acute distress and well developed HEENT: Head: Yes normal to inspection, Yes normocephalic and Yes atraumatic Eyes: General: appearance normal, both eyes and all related structures Neck: Neck: Yes normal visual inspection, Yes full ROM, Yes no meningeal signs, Yes trachea midline and Yes supple Chest: Chest palpation & inspection: normal inspection of the chest Resp: Other: no appreciable overt rales, rhonchi, wheezing Effort & Inspection: normal respiratory effort Cardio: Rate: regular rate Rhythm: regular rhythm GI: Inspection: Yes normal to inspection, No Abdominal wall edema and No distended Skin: General skin exam: no rashes or lesions noted Neuro: Other: intermittently answers yes-no questions General: tone normal, moves all extremities and no meningeal signs Extrem: General: Yes normal to inspection, Yes full ROM, Yes capillary refill normal and Yes no clubbing, cyanosis or edema Psych: Other: intermittent agitation, not verbally redirectable Objective Data Labs 05/04/24 04:42 05/04/24 04:42 Labs: Laboratory Results - last 24 hr 05/03/24 05/03/24 05/03/24 11:03 12:45 18:15 WBC RBC Hgb Hct MCV MCH MCHC RDW Plt Count MPV Immature Gran % (Auto) Neut % (Auto) Lymph % (Auto) [place] % (Auto) Eos % (Auto) Baso % (Auto) Lymph # (Auto) [place] # (Auto) Eos # (Auto) Baso # (Auto) Abs Immat Gran (auto) Absolute Neuts (auto) Absolute Nucleated RBC Nucleated RBC % (auto) VBG pH VBG pCO2 VBG pO2 VBG HCO3 VBG O2 Saturation VBG Base Excess Sodium Potassium Chloride Carbon Dioxide Anion Gap BUN Creatinine Estim Creat Clear Calc Estimated GFR POC Glucose 89 77 Random Glucose Calcium Phosphorus Magnesium Albumin Random Vancomycin 5.5 L 05/04/24 05/04/24 04:42 04:51 WBC 6.4 RBC 4.03 L Hgb 10.9 L Hct 34.2 L MCV 84.9 MCH 27.0 MCHC 31.9 RDW 15.1 Plt Count 416 H MPV 9.4 Immature Gran % (Auto) 0.3 Neut % (Auto) 67.6 Lymph % (Auto) 20.9 [place] % (Auto) 7.4 Eos % (Auto) 3.3 Baso % (Auto) 0.5 Lymph # (Auto) 1.3 [place] # (Auto) 0.5 Eos # (Auto) 0.2 Baso # (Auto) 0.0 Abs Immat Gran (auto) 0.02 Absolute Neuts (auto) 4.3 Absolute Nucleated RBC 0.000 Nucleated RBC % (auto) 0.0 VBG pH 7.42 VBG pCO2 42 VBG pO2 48 VBG HCO3 27 H VBG O2 Saturation 79.0 VBG Base Excess 3.2 Sodium 137 Potassium 3.6 Chloride 104 Carbon Dioxide 24 Anion Gap 13 BUN 7 L Creatinine 0.63 Estim Creat Clear Calc 158.5 Estimated GFR > 60 POC Glucose Random Glucose 111 Calcium 8.7 Phosphorus 3.5 Magnesium 1.9 Albumin 3.3 L Random Vancomycin Microbiology Microbiology Results: Microbiology 04/30/24 10:50 Blood - Venous Blood Culture - Preliminary No growth after 48 hours. 04/30/24 09:27 Blood - Venous Blood Culture - Preliminary No growth after 48 hours. Progress Note: A&P Assessment and plan (1) Polysubstance (excluding opioids) dependence: Status: Acute (2) Seizure: Status: Acute Plan Patient is a 49 Y M w/ polysubstance use disorder including PCP, cocaine, opioids, benzodiazepines and alcohol, mood disorder, initially presenting to emergency department on 04/30 w/ suicidal ideation/reported attempt w/ substances, initially admitted to medicine, developed multiple seizures, subsequently unresponsive, prompting ICU admission and intubation 05/01 N: intubated, sedated w/ propofol, midazolam, fentanyl gtts, wean as tolerated; to closely monitor break-through seizure CV: no acute issues R: intubated 05/01 in setting of post-ictal state, sedation, wean as tolerated GI: no acute issues : no acute issues H: no acute issues; chemical DVT prophylaxis w/ enoxaparin SQ ID: no overt stigmata of systemic infection; to closely monitor E: to monitor hypo-/hyper-glycemia P: reported suicidal attempt, sitter; polysubstance misuse, including alcohol withdrawal, phenobarbital protocol S: daily updates given to patient's father Quality Stroke Does the patient have a stroke diagnosis?: No VTE Prior VTE?: No VTE Risk Level:: Medical - moderate - high VTE Device Contraindication: N/A - Device Ordered VTE Drug Contraindication: N/A - Med Ordered
--- NOTE | 2024-05-04 09:28 | MHC.CLN ---
F/U PT REMAINS INTUBATED AND SEDATED REVIEWED LABS-UNREMARKABLE TF CURRENTLY RUNNING AT 40ML/HR -NSG CONTINUES TO TITRATE TO GOAL PT TO RECEIVE PROMOTE AT MAX GOAL RATE 60ML/HR WITH 300ML FWF Q 6 HRS TO PROVIDE 1440KCALS (2100KCALS WITH SEDATION; 25KCALS/KG), 90G PROTEIN (1.08G/KG), 2408ML TOTAL WATER FROM FORMULA AND FLUSHES (29ML/KG) CONTINUE TO MONITOR TOLERANCE AND LYTES
[2024-05-04] MEDS: Albumin Human 25 % 50 ML 100 ML IV (10:51)
[2024-05-04] MEDS: levETIRAcetam in NaCl (iso-os) 1,500 MG/100 ML PIGGYBACK 400 MG IV ×2 (10:51→23:03)
[2024-05-04 11:44] LABS: Glucose, Whole Blood 99 mg/dL (60-115)
--- NOTE | 2024-05-04 11:48 | MHC.CM.PN ---
Pt on vent support after OD. Pt's father able to be reached and is aware of pt's status. Pt will need BHN evaluation once medically stable d/t depression/SI/OD. No HCP located. CM to follow.
[2024-05-04 12:26] LABS: Vancomycin Random 18.7 mcg/mL (15-20)
--- NOTE | 2024-05-04 12:37 | HE.PHANOTE ---
re rose marie Patients level came back this afternoon at 18.7 which is a big jump from patients last level on 05/03 @5.5. Decreased dose as patients indication is skin, range will still be therapeutic however my concern is the level will become supratherapeutic. will get another level 05/05 @1200 to ensure safety vs efficacy. predicted AUC 433
[2024-05-04] MEDS: Norepinephrine Bitartrate/D5W 8 MG/250 ML PLAST..BAG 8.04 MG IVCONT (12:50)
[2024-05-04] MEDS: vancomycin HCL 1,250 MG in 0.9 % Sodium Chloride 250 ML 166.67 MG IV ×2 (13:44→21:58)
[2024-05-04] MEDS: Enoxaparin Sodium 40 MG/0.4 ML SYRINGE SUBCUT (14:50)
[2024-05-04 17:45] LABS: Glucose, Whole Blood 161 mg/dL (60-115)
--- NOTE | 2024-05-04 20:00 | PC.NURSE ---
ICU Day #:4 Vent Day #:4 Neuro: Sedated on Prop, Fentanyl and versed, see MAR Tolerating Vent well. Cardiac: SR, slight generalized edema, clonidine patch to right upper arm intact. Started on Levophed due to hypotension, see MAR for titration Resp: intubated, on PSV 10/5 this morning, changed to ACVC due to apnea, see vent assessment, tolerating well GI/:tube feeds at ordered max rate 60ml/hr, tellez patent and draining Endocrine: POC Q6 ID continues on Vancomycin Integumentary/Musculoskeletal:became restless once this shift, relaxed after a few minutes. Central Lines:TLC to right IJ
[2024-05-04] MEDS: Midazolam HCl 2 MG/2 ML VIAL IVPUSH (23:12)
[2024-05-05] VITALS (34 sets, daily range): BP systolic 91–125; BP diastolic 51–75; PULSE 56–83; RESP 14–23; TEMP 34.9–37.7; O2SAT 92–99; BMI 27.3
[2024-05-05 00:15] LABS: Glucose, Whole Blood 125 mg/dL (60-115)
[2024-05-05] MEDS: propofoL 1,000 MG/100 ML VIAL 25.02 MG IVCONT ×7 (01:12→22:46)
[2024-05-05] MEDS: Midazolam HCl/NS 50 MG/50 ML PLAST..BAG IVCONT ×3 (03:51→21:49)
[2024-05-05] MEDS: fentaNYL citrate/NS 1,000 MCG/100 ML PLAST..BAG 20 MCG IVCONT ×5 (03:52→22:50)
[2024-05-05] MEDS: vancomycin HCL 1,250 MG in 0.9 % Sodium Chloride 250 ML 166.67 MG IV ×3 (05:11→21:48)
[2024-05-05 05:30] LABS: VBG Base Excess 6.2 mmol/L; VBG HCO3 29 mmol/L (22-26); VBG pCO2 37 mmHg; VBG pO2 41 mmHg
[2024-05-05 05:33] LABS: Venous Blood Gas Refer to POC result
[2024-05-05 05:41] LABS: MANUAL DIFF FLAG NO
[2024-05-05 05:42] LABS: Basophils Percent Auto 0.7 % (0-2); Eosinophils Absolute Auto 0.2 X10*3/uL (0.0-0.4); Eosinophils Percent Auto 3.9 % (0-4); Hematocrit 33.5 % (42.0-52.0); Hemoglobin 10.9 g/dl (14.0-18.0); Imm Gran Abs Auto 0.02 X10*3/uL (0.00-0.03); Imm Gran Pct Auto 0.4 % (0.0-0.4); Lymphocytes Absolute Auto 1.3 X10*3/uL (1.2-4.9); Lymphocytes Percent Auto 23.1 % (20-40); Mean Corpuscular HGB Conc 32.5 g/dl (31.0-36.0); Mean Corpuscular Hemoglobin 27.5 pg (27.0-33.0); Mean Corpuscular Volume 84.6 fL (80.0-98.0); Mean Platelet Volume 9.6 fL (9.4-12.4); Monocytes Absolute Auto 0.5 X10*3/uL (0.1-1.2); Neutrophils Absolute Auto 3.6 x10*3/uL (2.0-8.3); Neutrophils Percent Auto 63.9 % (45-73); Platelet Count 429 X10*3/uL (160-400); Red Blood Count 3.96 X10*6/uL (4.60-5.80); Red Cell Distribution Width 15.2 % (11.0-16.0); White Blood Count 5.6 X10*3/uL (4.8-10.8)
[2024-05-05] MEDS: Pantoprazole Sodium 40 MG/10 ML VIAL IVPUSH (06:01)
[2024-05-05 06:12] LABS: Albumin Level 3.2 g/dL (3.5-5.0); Anion Gap 12 (12-20); Blood Urea Nitrogen 6 mg/dL (9-16); Calcium 8.5 mg/dL (8.4-10.2); Carbon Dioxide 25 mmol/L (22-29); Chloride 108 mmol/L (96-108); Creatinine Clr Calc Pharmacy 148.8; Estimated Glomerular Filt Rate > 60; Glucose Random 145 mg/dL (60-115); Magnesium 1.9 mg/dL (1.6-2.6); Phosphorus 2.4 mg/dL (2.7-4.5); Potassium 3.7 mmol/L (3.3-5.1); Sodium 141 mmol/L (135-145)
--- NOTE | 2024-05-05 06:30 | PC.NURSE ---
assumed care 1900, pt remains intubated sedated per emar, requited additional versed this shift d/t severe agitation.repo q2, sitter at beside for safety
[2024-05-05] MEDS: Potassium Phosphate/NS 15 MMOL/250 ML PLAST..BAG 62.5 MMOL IV (08:02)
[2024-05-05] MEDS: Famotidine/PF 20 MG/2 ML VIAL IVPUSH (08:03)
[2024-05-05] MEDS: PHENobarbitaL 15 MG TABLET PO (08:04)
[2024-05-05] MEDS: Cyanocobalamin (Vitamin B-12) 1,000 MCG TABLET 1000 MCG PO (08:04)
[2024-05-05] MEDS: Chlorhexidine Gluc Oral Rinse 15 ML MOUTHWASH BUCCAL ×3 (08:04→20:09)
[2024-05-05] MEDS: Nystatin Powder 15 GM BOTTLE 1 APPL TOPICAL ×2 (08:04→20:09)
[2024-05-05] MEDS: Thiamine HCL 100 MG TABLET PO (08:04)
[2024-05-05] MEDS: 0.9 % Sodium Chloride Flush 3 ML SYRINGE IVFLUSH ×2 (08:04→15:17)
[2024-05-05] MEDS: Folic Acid 1 MG TABLET PO (08:04)
--- NOTE | 2024-05-05 08:20 | P.PNCC_ITS ---
Subjective Subjective Date of Service: 05/05/24 Interval History: persistent agitation, especially in PM, diaphoresis c/f persistent withdrawal Critical Care Time (minutes): 60 Physical Exam 2 Vital Signs: Vital Signs: Last Vital Signs Temp 98.8 F 05/05/24 03:00 Pulse 60 05/05/24 08:00 Resp 16 05/05/24 08:00 BP 104/61 05/05/24 08:00 Pulse Ox 92 05/05/24 08:00 O2 Del Method Mechanical Ventil ation 05/05/24 08:00 O2 Flow Rate 2 04/30/24 15:47 FiO2 30 05/05/24 08:00 BMI result Body Mass Index 27.3 Const: Other: intubated, sedated; appreciable spontaneous movements General: no acute distress and well developed HEENT: Head: Yes normal to inspection, Yes normocephalic and Yes atraumatic Eyes: General: appearance normal, both eyes and all related structures Neck: Neck: Yes normal visual inspection, Yes full ROM, Yes no meningeal signs, Yes trachea midline and Yes supple Chest: Chest palpation & inspection: normal inspection of the chest Resp: Other: no appreciable overt rales, rhonchi, wheezing Effort & Inspection: normal respiratory effort Cardio: Rate: regular rate Rhythm: regular rhythm GI: Inspection: Yes normal to inspection, No Abdominal wall edema and No distended Palpation (GI): Soft to palpation, not firm, nontender, no guarding and not rigid Skin: General skin exam: no rashes or lesions noted Neuro: General: tone normal, moves all extremities and no meningeal signs Extrem: Other: appreciable trace pitting edema to bilateral shins General: Yes normal to inspection, Yes full ROM and Yes capillary refill normal Psych: Other: intermittent agitation Objective Data Labs 05/05/24 05:15 05/05/24 05:15 Labs: Laboratory Results - last 24 hr 05/04/24 05/04/24 05/04/24 11:15 12:00 17:35 WBC RBC Hgb Hct MCV MCH MCHC RDW Plt Count MPV Immature Gran % (Auto) Neut % (Auto) Lymph % (Auto) [place] % (Auto) Eos % (Auto) Baso % (Auto) Lymph # (Auto) [place] # (Auto) Eos # (Auto) Baso # (Auto) Abs Immat Gran (auto) Absolute Neuts (auto) Absolute Nucleated RBC Nucleated RBC % (auto) VBG pH VBG pCO2 VBG pO2 VBG HCO3 VBG O2 Saturation VBG Base Excess Sodium Potassium Chloride Carbon Dioxide Anion Gap BUN Creatinine Estim Creat Clear Calc Estimated GFR POC Glucose 99 161 H Random Glucose Calcium Phosphorus Magnesium Albumin Random Vancomycin 18.7 05/04/24 05/05/24 05/05/24 23:58 05:15 05:26 WBC 5.6 RBC 3.96 L Hgb 10.9 L Hct 33.5 L MCV 84.6 MCH 27.5 MCHC 32.5 RDW 15.2 Plt Count 429 H MPV 9.6 Immature Gran % (Auto) 0.4 Neut % (Auto) 63.9 Lymph % (Auto) 23.1 [place] % (Auto) 8.0 Eos % (Auto) 3.9 Baso % (Auto) 0.7 Lymph # (Auto) 1.3 [place] # (Auto) 0.5 Eos # (Auto) 0.2 Baso # (Auto) 0.0 Abs Immat Gran (auto) 0.02 Absolute Neuts (auto) 3.6 Absolute Nucleated RBC 0.000 Nucleated RBC % (auto) 0.0 VBG pH 7.50 H VBG pCO2 37 VBG pO2 41 VBG HCO3 29 H VBG O2 Saturation 71.0 VBG Base Excess 6.2 Sodium 141 Potassium 3.7 Chloride 108 Carbon Dioxide 25 Anion Gap 12 BUN 6 L Creatinine 0.62 Estim Creat Clear Calc 148.8 Estimated GFR > 60 POC Glucose 125 H Random Glucose 145 H Calcium 8.5 Phosphorus 2.4 L Magnesium 1.9 Albumin 3.2 L Random Vancomycin Microbiology Microbiology Results: Microbiology 04/30/24 10:50 Blood - Venous Blood Culture - Preliminary No growth after 48 hours. 04/30/24 09:27 Blood - Venous Blood Culture - Preliminary No growth after 48 hours. Progress Note: A&P Assessment and plan (1) Polysubstance (excluding opioids) dependence: Status: Acute (2) Seizure: Status: Acute Plan Patient is a 49 Y M w/ polysubstance use disorder including PCP, cocaine, opioids, benzodiazepines and alcohol, mood disorder, initially presenting to emergency department on 04/30 w/ suicidal ideation/reported attempt w/ substances, initially admitted to medicine, developed multiple seizures, subsequently unresponsive, prompting ICU admission and intubation 03/11 N: intubated, sedated w/ propofol, midazolam, fentanyl gtts, wean as tolerated; to closely monitor break-through seizure CV: hypotension, likely d/t sedation, norepinephrine gtt, wean as tolerated R: intubated 05/01 in setting of post-ictal state, sedation, wean as tolerated GI: no acute issues : no acute issues H: no acute issues; chemical DVT prophylaxis w/ enoxaparin SQ ID: no overt stigmata of systemic infection; to closely monitor E: to monitor hypo-/hyper-glycemia P: reported suicidal attempt, sitter; polysubstance misuse, including alcohol withdrawal, phenobarbital protocol S: daily updates given to patient's father Quality Stroke Does the patient have a stroke diagnosis?: No VTE Prior VTE?: No VTE Risk Level:: Medical - moderate - high VTE Device Contraindication: N/A - Device Ordered VTE Drug Contraindication: N/A - Med Ordered
[2024-05-05] MEDS: Albumin Human 25 % 50 ML 100 ML IV (09:09)
[2024-05-05] MEDS: levETIRAcetam in NaCl (iso-os) 1,500 MG/100 ML PIGGYBACK 400 MG IV ×2 (10:51→22:42)
[2024-05-05] MEDS: Midazolam HCl 2 MG/2 ML VIAL IVPUSH ×4 (11:30→19:04)
[2024-05-05 11:54] LABS: Glucose, Whole Blood 140 mg/dL (60-115)
--- NOTE | 2024-05-05 13:01 | HE.PHANOTE ---
RE: VANCO DOSING Trough came back as 13 mg/L. Continue with 1250 mg q8h, next trough is scheduled for 05/06/24 @1200.
[2024-05-05] MEDS: Enoxaparin Sodium 40 MG/0.4 ML SYRINGE SUBCUT (14:33)
[2024-05-05 17:47] LABS: Glucose, Whole Blood 115 mg/dL (60-115)
--- NOTE | 2024-05-05 19:06 | PC.NURSE ---
Assumed care at 0700- pt. remains intubated and sedated per MAR. PRN versed given per MAR. Pt. placed on PSV 8/5 30% at approx 1630. Full bed bath performed- see ADLs. Q2 oral care and repositioning performed. 1:[address] for safety[address] Plan of care ongoing.
[2024-05-05] MEDS: Norepinephrine Bitartrate/D5W 8 MG/250 ML PLAST..BAG 4.83 MG IVCONT (19:24)
[2024-05-06] VITALS (35 sets, daily range): BP systolic 88–145; BP diastolic 43–99; PULSE 55–74; RESP 16–19; TEMP 35–37.8; O2SAT 91–99; BMI 27.2
[2024-05-06] MEDS: Midazolam HCl 2 MG/2 ML VIAL IVPUSH ×8 (00:12→22:54)
[2024-05-06 00:29] LABS: Glucose, Whole Blood 146 mg/dL (60-115)
[2024-05-06] MEDS: propofoL 1,000 MG/100 ML VIAL 25.02 MG IVCONT ×7 (02:03→22:58)
[2024-05-06] MEDS: fentaNYL citrate/NS 1,000 MCG/100 ML PLAST..BAG 20 MCG IVCONT ×5 (03:27→22:09)
[2024-05-06 05:19] LABS: VBG Base Excess 5.2 mmol/L; VBG HCO3 29 mmol/L (22-26); VBG pCO2 39 mmHg; VBG pH 7.47 (7.32-7.43); VBG pO2 44 mmHg
[2024-05-06] MEDS: Pantoprazole Sodium 40 MG/10 ML VIAL IVPUSH (05:34)
[2024-05-06] MEDS: vancomycin HCL 1,250 MG in 0.9 % Sodium Chloride 250 ML 166.67 MG IV ×3 (05:34→22:01)
[2024-05-06 06:02] LABS: MANUAL DIFF FLAG NO
[2024-05-06 06:04] LABS: Basophils Percent Auto 0.7 % (0-2); Eosinophils Absolute Auto 0.3 X10*3/uL (0.0-0.4); Eosinophils Percent Auto 4.5 % (0-4); Hematocrit 35.8 % (42.0-52.0); Hemoglobin 11.7 g/dl (14.0-18.0); Imm Gran Abs Auto 0.01 X10*3/uL (0.00-0.03); Imm Gran Pct Auto 0.2 % (0.0-0.4); Lymphocytes Absolute Auto 1.6 X10*3/uL (1.2-4.9); Lymphocytes Percent Auto 28.4 % (20-40); Mean Corpuscular HGB Conc 32.7 g/dl (31.0-36.0); Mean Corpuscular Hemoglobin 27.4 pg (27.0-33.0); Mean Corpuscular Volume 83.8 fL (80.0-98.0); Mean Platelet Volume 9.9 fL (9.4-12.4); Monocytes Absolute Auto 0.5 X10*3/uL (0.1-1.2); Monocytes Percent Auto 9.4 % (2-11); Neutrophils Absolute Auto 3.3 x10*3/uL (2.0-8.3); Neutrophils Percent Auto 56.8 % (45-73); Platelet Count 448 X10*3/uL (160-400); Red Blood Count 4.27 X10*6/uL (4.60-5.80); Red Cell Distribution Width 15.3 % (11.0-16.0); White Blood Count 5.7 X10*3/uL (4.8-10.8)
[2024-05-06 06:22] LABS: Albumin Level 3.4 g/dL (3.5-5.0); Anion Gap 12 (12-20); Blood Urea Nitrogen 8 mg/dL (9-16); Calcium 8.8 mg/dL (8.4-10.2); Carbon Dioxide 24 mmol/L (22-29); Chloride 109 mmol/L (96-108); Creatinine Clr Calc Pharmacy 144.1; Estimated Glomerular Filt Rate > 60; Glucose Random 132 mg/dL (60-115); Phosphorus 3.4 mg/dL (2.7-4.5); Potassium 3.9 mmol/L (3.3-5.1); Sodium 141 mmol/L (135-145)
[2024-05-06] MEDS: Famotidine/PF 20 MG/2 ML VIAL IVPUSH (07:44)
[2024-05-06] MEDS: 0.9 % Sodium Chloride Flush 3 ML SYRINGE IVFLUSH ×2 (07:44→14:52)
[2024-05-06] MEDS: Chlorhexidine Gluc Oral Rinse 15 ML MOUTHWASH BUCCAL ×3 (07:45→20:19)
[2024-05-06] MEDS: Nystatin Powder 15 GM BOTTLE 1 APPL TOPICAL ×2 (07:46→22:00)
[2024-05-06] MEDS: Cyanocobalamin (Vitamin B-12) 1,000 MCG TABLET 1000 MCG PO (07:46)
[2024-05-06] MEDS: Thiamine HCL 100 MG TABLET PO (07:46)
[2024-05-06] MEDS: PHENobarbitaL 15 MG TABLET PO (07:46)
[2024-05-06] MEDS: Folic Acid 1 MG TABLET PO (07:46)
[2024-05-06 08:28] LABS: Venous Blood Gas Refer to POC result
--- NOTE | 2024-05-06 08:47 | P.PNCC_ITS ---
Subjective Subjective Date of Service: 05/06/24 Interval History: no significant overnight events Critical Care Time (minutes): 60 Physical Exam 2 Vital Signs: Vital Signs: Last Vital Signs Temp 98.8 F 05/06/24 08:00 Pulse 61 05/06/24 08:07 Resp 16 05/06/24 08:00 BP 120/60 05/06/24 08:07 Pulse Ox 93 05/06/24 08:00 O2 Del Method Mechanical Ventil ation 05/06/24 08:00 O2 Flow Rate 2 04/30/24 15:47 FiO2 30 05/06/24 08:23 BMI result Body Mass Index 27.2 Const: Other: intubated, sedated; appreciable spontaneous movements General: comfortable, no acute distress and well developed HEENT: Head: Yes normal to inspection, Yes normocephalic and Yes atraumatic Eyes: General: appearance normal, both eyes and all related structures Neck: Neck: Yes normal visual inspection, Yes full ROM, Yes no meningeal signs, Yes trachea midline and Yes supple Chest: Chest palpation & inspection: normal inspection of the chest Resp: Other: no appreciable rales, rhonchi, wheezing Effort & Inspection: normal respiratory effort Cardio: Rate: regular rate Rhythm: regular rhythm GI: Inspection: Yes normal to inspection, No Abdominal wall edema and No distended Palpation (GI): Soft to palpation, not firm, nontender, no guarding and not rigid Skin: General skin exam: no rashes or lesions noted Neuro: General: tone normal, moves all extremities and no meningeal signs Extrem: Other: appreciable 1+ pitting edema to bilateral shins General: Yes normal to inspection, Yes full ROM and Yes capillary refill normal Psych: Other: intermittent agitation Objective Data Labs 05/06/24 05:15 05/06/24 05:15 Labs: Laboratory Results - last 24 hr 05/05/24 05/05/24 05/05/24 11:41 12:00 17:34 WBC RBC Hgb Hct MCV MCH MCHC RDW Plt Count MPV Immature Gran % (Auto) Neut % (Auto) Lymph % (Auto) [place] % (Auto) Eos % (Auto) Baso % (Auto) Lymph # (Auto) [place] # (Auto) Eos # (Auto) Baso # (Auto) Abs Immat Gran (auto) Absolute Neuts (auto) Absolute Nucleated RBC Nucleated RBC % (auto) VBG pH VBG pCO2 VBG pO2 VBG HCO3 VBG O2 Saturation VBG Base Excess Sodium Potassium Chloride Carbon Dioxide Anion Gap BUN Creatinine Estim Creat Clear Calc Estimated GFR POC Glucose 140 H 115 Random Glucose Calcium Phosphorus Magnesium Albumin Random Vancomycin 13.0 L 05/06/24 05/06/24 05/06/24 00:12 05:15 05:16 WBC 5.7 RBC 4.27 L Hgb 11.7 L Hct 35.8 L MCV 83.8 MCH 27.4 MCHC 32.7 RDW 15.3 Plt Count 448 H MPV 9.9 Immature Gran % (Auto) 0.2 Neut % (Auto) 56.8 Lymph % (Auto) 28.4 [place] % (Auto) 9.4 Eos % (Auto) 4.5 H Baso % (Auto) 0.7 Lymph # (Auto) 1.6 [place] # (Auto) 0.5 Eos # (Auto) 0.3 Baso # (Auto) 0.0 Abs Immat Gran (auto) 0.01 Absolute Neuts (auto) 3.3 Absolute Nucleated RBC 0.000 Nucleated RBC % (auto) 0.0 VBG pH 7.47 H VBG pCO2 39 VBG pO2 44 VBG HCO3 29 H VBG O2 Saturation 72.0 VBG Base Excess 5.2 Sodium 141 Potassium 3.9 Chloride 109 H Carbon Dioxide 24 Anion Gap 12 BUN 8 L Creatinine 0.64 Estim Creat Clear Calc 144.1 Estimated GFR > 60 POC Glucose 146 H Random Glucose 132 H Calcium 8.8 Phosphorus 3.4 Magnesium 2.0 Albumin 3.4 L Random Vancomycin Microbiology Microbiology Results: Microbiology 04/30/24 10:50 Blood - Venous Blood Culture - Final No growth after 5 days. 04/30/24 09:27 Blood - Venous Blood Culture - Final No growth after 5 days. Progress Note: A&P Assessment and plan (1) Polysubstance (including opioids) dependence with physiological dependence: Status: Acute (2) Seizure: Status: Acute Plan Patient is a 49 Y M w/ polysubstance use disorder including PCP, cocaine, opioids, benzodiazepines and alcohol, mood disorder, initially presenting to emergency department on 04/30 w/ suicidal ideation/reported attempt w/ substances, initially admitted to medicine, developed multiple seizures, subsequently unresponsive, prompting ICU admission and intubation 05/01 N: intubated, sedated w/ propofol, midazolam, fentanyl gtts, wean as tolerated; to closely monitor break-through seizure CV: hypotension, likely d/t sedation, norepinephrine gtt, wean as tolerated R: intubated 05/01 in setting of post-ictal state, sedation, wean as tolerated GI: no acute issues : no acute issues H: no acute issues; chemical DVT prophylaxis w/ enoxaparin SQ ID: no overt stigmata of systemic infection; to closely monitor E: to monitor hypo-/hyper-glycemia P: reported suicidal attempt, sitter; polysubstance misuse, including alcohol withdrawal, phenobarbital protocol S: daily updates given to patient's father Quality Stroke Does the patient have a stroke diagnosis?: No VTE Prior VTE?: No VTE Risk Level:: Medical - moderate - high VTE Device Contraindication: N/A - Device Ordered VTE Drug Contraindication: N/A - Med Ordered
[2024-05-06] MEDS: Furosemide 20 MG/2 ML VIAL 10 MG IVPUSH (09:28)
[2024-05-06] MEDS: Albumin Human 25 % 50 ML 100 ML IV (09:29)
[2024-05-06] MEDS: Midazolam HCl/NS 50 MG/50 ML PLAST..BAG IVCONT ×2 (09:31→20:19)
[2024-05-06] MEDS: levETIRAcetam in NaCl (iso-os) 1,500 MG/100 ML PIGGYBACK 400 MG IV ×2 (10:02→22:49)
[2024-05-06 12:06] LABS: Glucose, Whole Blood 129 mg/dL (60-115)
[2024-05-06 12:15] LABS: Vancomycin Random 14.7 mcg/mL (15-20)
[2024-05-06] MEDS: Enoxaparin Sodium 40 MG/0.4 ML SYRINGE SUBCUT (14:52)
[2024-05-06 18:32] LABS: Glucose, Whole Blood 153 mg/dL (60-115)
[2024-05-06 23:46] LABS: Glucose, Whole Blood 135 mg/dL (60-115)
[2024-05-07] VITALS (36 sets, daily range): BP systolic 82–170; BP diastolic 43–108; PULSE 53–114; RESP 16–20; TEMP 34.9–38.2; O2SAT 92–99; BMI 26.9
[2024-05-07] MEDS: Norepinephrine Bitartrate/D5W 8 MG/250 ML PLAST..BAG 4.83 MG IVCONT
--- NOTE | 2024-05-07 | ECG_ITS ---
Test Reason : qtc Blood Pressure : */* mmHG Vent. Rate : 95 BPM Atrial Rate : 95 BPM P-R Int : 128 ms QRS Dur : 84 ms QT Int : 336 ms P-R-T Axes : 24 14 9 degrees QTcB Int : 422 ms Normal sinus rhythm Minimal voltage criteria for LVH, may be normal variant ( Sokolow-Villar ) Possible Inferior infarct (cited on or before 19-Apr-2024) T wave abnormality, consider lateral ischemia Abnormal ECG When compared with ECG of 19-Apr-2024 22:10, QT has shortened Referred By: Mathew Bah Electronically Signed By: Jimi Gamez
[2024-05-07] MEDS: Midazolam HCl 2 MG/2 ML VIAL IVPUSH ×4 (01:23→07:39)
[2024-05-07] MEDS: fentaNYL citrate/NS 1,000 MCG/100 ML PLAST..BAG 20 MCG IVCONT ×5 (02:30→22:12)
[2024-05-07] MEDS: propofoL 1,000 MG/100 ML VIAL 25.02 MG IVCONT ×7 (02:31→22:13)
[2024-05-07] MEDS: bisacodyL 10 MG SUPP.RECT PR (04:38)
[2024-05-07 05:06] LABS: VBG Base Excess 4.3 mmol/L; VBG HCO3 26 mmol/L (22-26); VBG pCO2 33 mmHg; VBG pH 7.51 (7.32-7.43); VBG pO2 44 mmHg
[2024-05-07 05:11] LABS: Venous Blood Gas Refer to POC result
[2024-05-07 05:30] LABS: MANUAL DIFF FLAG NO
[2024-05-07 05:32] LABS: Basophils Absolute Auto 0.1 X10*3/uL (0.0-0.2); Basophils Percent Auto 0.7 % (0-2); Eosinophils Absolute Auto 0.3 X10*3/uL (0.0-0.4); Eosinophils Percent Auto 3.5 % (0-4); Hematocrit 36.2 % (42.0-52.0); Hemoglobin 11.9 g/dl (14.0-18.0); Imm Gran Abs Auto 0.02 X10*3/uL (0.00-0.03); Imm Gran Pct Auto 0.3 % (0.0-0.4); Lymphocytes Absolute Auto 1.5 X10*3/uL (1.2-4.9); Lymphocytes Percent Auto 21.2 % (20-40); Mean Corpuscular HGB Conc 32.9 g/dl (31.0-36.0); Mean Corpuscular Hemoglobin 27.6 pg (27.0-33.0); Mean Platelet Volume 9.9 fL (9.4-12.4); Monocytes Absolute Auto 0.7 X10*3/uL (0.1-1.2); Monocytes Percent Auto 9.2 % (2-11); Neutrophils Absolute Auto 4.6 x10*3/uL (2.0-8.3); Neutrophils Percent Auto 65.1 % (45-73); Platelet Count 430 X10*3/uL (160-400); Red Blood Count 4.31 X10*6/uL (4.60-5.80); Red Cell Distribution Width 14.9 % (11.0-16.0); White Blood Count 7.1 X10*3/uL (4.8-10.8)
[2024-05-07] MEDS: vancomycin HCL 1,250 MG in 0.9 % Sodium Chloride 250 ML 166.67 MG IV (05:45)
[2024-05-07] MEDS: Pantoprazole Sodium 40 MG/10 ML VIAL IVPUSH (05:46)
[2024-05-07 05:48] LABS: Albumin Level 3.6 g/dL (3.5-5.0); Anion Gap 13 (12-20); Blood Urea Nitrogen 13 mg/dL (9-16); Calcium 8.9 mg/dL (8.4-10.2); Carbon Dioxide 23 mmol/L (22-29); Chloride 108 mmol/L (96-108); Creatinine Clr Calc Pharmacy 139.7; Estimated Glomerular Filt Rate > 60; Glucose Random 115 mg/dL (60-115); Magnesium 1.9 mg/dL (1.6-2.6); Phosphorus 3.7 mg/dL (2.7-4.5); Potassium 3.7 mmol/L (3.3-5.1); Sodium 140 mmol/L (135-145); Triglycerides 174 mg/dL (<150)
[2024-05-07] MEDS: Midazolam HCl/NS 50 MG/50 ML PLAST..BAG IVCONT ×2 (06:25→19:57)
[2024-05-07] MEDS: 0.9 % Sodium Chloride Flush 3 ML SYRINGE IVFLUSH ×4 (07:42→23:18)
[2024-05-07] MEDS: Furosemide 20 MG/2 ML VIAL 10 MG IVPUSH (09:40)
[2024-05-07] MEDS: Cyanocobalamin (Vitamin B-12) 1,000 MCG TABLET 1000 MCG PO (09:41)
[2024-05-07] MEDS: Folic Acid 1 MG TABLET 2 MG PO (09:41)
[2024-05-07] MEDS: Famotidine/PF 20 MG/2 ML VIAL IVPUSH (09:41)
[2024-05-07] MEDS: lamoTRIgine 25 MG TABLET 50 MG PO ×2 (09:41→22:53)
[2024-05-07] MEDS: Chlorhexidine Gluc Oral Rinse 15 ML MOUTHWASH BUCCAL ×3 (09:41→20:08)
[2024-05-07] MEDS: Thiamine HCL 100 MG TABLET 300 MG PO (09:42)
[2024-05-07] MEDS: Nystatin Powder 15 GM BOTTLE 1 APPL TOPICAL ×2 (09:42→22:00)
--- NOTE | 2024-05-07 09:47 | MHC.CLN ---
F/U PT REMAINS INTUBATED AND SEDATED DISCUSSED AT ROUNDS WITH PT RECEIVING PROMOTE AT MAX GOAL RATE 60ML/HR WITH 300ML FWF Q 6 HRS PROVIDES 1440KCALS (2100KCALS WITH SEDATION; 25KCALS/KG), 90G PROTEIN (1.08G/KG), 2408ML TOTAL WATER FROM FORMULA AND FLUSHES (29ML/KG) CONTINUE TO MONITOR TOLERANCE AND LYTES
--- NOTE | 2024-05-07 09:48 | P.PNCC_ITS ---
Subjective Subjective Date of Service: 05/07/24 Interval History: 49-year-old gentleman with underlying history of polysubstance abuse including amphetamine, cocaine, opioids, PCP, and alcohol, also with mood disorder with suicidal inclinations admitted on 04/30/2024 with polysubstance abuse, seizures, and possible suicidal ideations, initially to telemetry hadley, but with an acute decompensation secondary to multiple seizures requiring intubation and transfer to the intensive care unit. No events overnight. Remains significantly encephalopathic. Critical Care Time (minutes): 60 Physical Exam 2 Vital Signs: Vital Signs: Last Vital Signs Temp 99.9 F 05/07/24 08:59 Pulse 67 05/07/24 08:59 Resp 17 05/07/24 08:59 BP 124/74 05/07/24 08:59 Pulse Ox 94 05/07/24 08:59 O2 Del Method Mechanical Ventil ation 05/07/24 08:59 O2 Flow Rate 2 04/30/24 15:47 FiO2 30 05/07/24 08:59 BMI result Body Mass Index 26.9 Const: Other: Sedated on ventilatory support with significant agitation with sedation vacations General: no acute distress Eyes: Sclerae: sclerae normal EOM: EOMs intact bilaterally Neck: Neck: Yes no lymphadenopathy, Yes trachea midline and Yes supple Resp: Effort & Inspection: normal respiratory effort and no respiratory distress Auscultation: clear to auscultation bilaterally Cardio: Rate: regular rate Rhythm: regular rhythm Heart sounds: no gallops, no murmurs and no rubs GI: Palpation (GI): Soft to palpation and Other GI palpation findings present ( Nontender) Auscultation: normal bowel sounds Extrem: General: Yes no pedal edema, No clubbing and No cyanosis Objective Data Labs 05/07/24 04:58 05/07/24 04:58 Labs: Laboratory Results - last 24 hr 05/06/24 05/06/24 05/06/24 11:48 11:57 18:22 WBC RBC Hgb Hct MCV MCH MCHC RDW Plt Count MPV Immature Gran % (Auto) Neut % (Auto) Lymph % (Auto) [place] % (Auto) Eos % (Auto) Baso % (Auto) Lymph # (Auto) [place] # (Auto) Eos # (Auto) Baso # (Auto) Abs Immat Gran (auto) Absolute Neuts (auto) Absolute Nucleated RBC Nucleated RBC % (auto) VBG pH VBG pCO2 VBG pO2 VBG HCO3 VBG O2 Saturation VBG Base Excess Sodium Potassium Chloride Carbon Dioxide Anion Gap BUN Creatinine Estim Creat Clear Calc Estimated GFR POC Glucose 129 H 153 H Random Glucose Calcium Phosphorus Magnesium Albumin Triglycerides Random Vancomycin 14.7 L 05/06/24 05/07/24 05/07/24 23:31 04:58 05:03 WBC 7.1 RBC 4.31 L Hgb 11.9 L Hct 36.2 L MCV 84.0 MCH 27.6 MCHC 32.9 RDW 14.9 Plt Count 430 H MPV 9.9 Immature Gran % (Auto) 0.3 Neut % (Auto) 65.1 Lymph % (Auto) 21.2 [place] % (Auto) 9.2 Eos % (Auto) 3.5 Baso % (Auto) 0.7 Lymph # (Auto) 1.5 [place] # (Auto) 0.7 Eos # (Auto) 0.3 Baso # (Auto) 0.1 Abs Immat Gran (auto) 0.02 Absolute Neuts (auto) 4.6 Absolute Nucleated RBC 0.000 Nucleated RBC % (auto) 0.0 VBG pH 7.51 H VBG pCO2 33 VBG pO2 44 VBG HCO3 26 VBG O2 Saturation 76.0 VBG Base Excess 4.3 Sodium 140 Potassium 3.7 Chloride 108 Carbon Dioxide 23 Anion Gap 13 BUN 13 Creatinine 0.66 Estim Creat Clear Calc 139.7 Estimated GFR > 60 POC Glucose 135 H Random Glucose 115 Calcium 8.9 Phosphorus 3.7 Magnesium 1.9 Albumin 3.6 Triglycerides 174 H Random Vancomycin Microbiology Microbiology Results: Microbiology 04/30/24 10:50 Blood - Venous Blood Culture - Final No growth after 5 days. 04/30/24 09:27 Blood - Venous Blood Culture - Final No growth after 5 days. Progress Note: A&P Assessment and plan (1) Polysubstance abuse: Status: Acute (2) Seizure: Status: Acute (3) Toxic encephalopathy: Status: Acute (4) History of suicidal ideation: Status: Acute Plan Assessment: 49-year-old gentleman with underlying polysubstance abuse, admitted polysubstance intoxication and new onset seizures resulting in acute toxic encephalopathy requiring multiple sedative drips and ventilatory support Plan: Neuro: toxic encephalopathy. CT head with no acute findings. Continue to titrate off sedative drips as tolerated. Cardiac: No acute issues. Pulmonary: Intubated for airway protection secondary to high sedation requirements. Continue to titrate off as tolerated. Renal: No acute issues. Endo: No acute issues. GI: No acute issues. ID: No acute issues Heme/Onc: No acute issues. Psych: Underlying mood disorder, will start on Lamictal. Miscellaneous: No acute issues. Prophylaxis: Famotidine, heparin Diet: tube feed Critical care time spent: 60 minutes Quality Stroke Does the patient have a stroke diagnosis?: No VTE Prior VTE?: No VTE Risk Level:: Medical - moderate - high VTE Device Contraindication: N/A - Device Ordered VTE Drug Contraindication: N/A - Med Ordered
[2024-05-07] MEDS: Cisatracurium Besylate 20 MG/10 ML VIAL IVPUSH ×2 (09:57→15:26)
[2024-05-07] MEDS: Lactulose 20 GM/30 ML SOLUTION 30 GM PO (11:00)
[2024-05-07] MEDS: levETIRAcetam in NaCl (iso-os) 1,500 MG/100 ML PIGGYBACK 400 MG IV ×2 (11:01→22:55)
[2024-05-07] MEDS: Midazolam HCl 2 MG/2 ML VIAL 4 MG IVPUSH ×4 (11:10→22:26)
[2024-05-07] MEDS: diphenhydrAMINE HCL 50 MG/ML VIAL IVPUSH ×3 (11:21→18:01)
[2024-05-07 11:41] LABS: Glucose, Whole Blood 151 mg/dL (60-115)
--- NOTE | 2024-05-07 12:58 | MHC.CM.PN ---
Pt continues care in ICU: remains intubated and agitated d/t substance w/d. Levophed and propofol - to start Lamictal and begin vent wean on 05/08. Pt is homeless and will need to be seen by N once stable for ? INPT stay d/c SI. CM to follow.
[2024-05-07] MEDS: Enoxaparin Sodium 40 MG/0.4 ML SYRINGE SUBCUT (14:18)
[2024-05-07] MEDS: Cisatracurium Besylate 100 MG in 0.9 % Sodium Chloride 40 ML 5.11 MG IVCONT ×2 (15:12→20:02)
[2024-05-07 17:33] LABS: Glucose, Whole Blood 117 mg/dL (60-115)
--- NOTE | 2024-05-07 19:16 | PC.NURSE ---
Neuro: Sedated on Prop, Fentanyl, versed gtt d/c, benadryl and PRN Versed ordered, given, decreased restlessness for approximately 45 minutes to 1hour. Patient attempting to get out of bed and pulling at lines, Nimbex ordered and given, effects wear off approximately 45-60 minutes, MD aware Nimbex gtt started,Train of Four 4/4 on 4 amps baseline, with Nimbex bolus and gtt started, train of four ? on 4amps, slowly increased to 4/4 on 4amps as patient became more restless, PRN Benadryl and Versed used to make patient comfortable. See MAR for details Cardiac: SR, slight generalized edema, clonidine patch to right upper arm intact. Levophed titrated off, BP stable, slight HTN and ST noted when restless. Resp: intubated, on ACPC 15/5 rate of 16, see vent assessment, asynchrony with restlessness, tolerating well GI/: tube feeds placed on hold due to Nimbex gtt, tellez patent and draining Endocrine: POC Q6 ID Vancomycin stopped Integumentary/Musculoskeletal: Blisters to feet Central Lines:TLC to right IJ
[2024-05-07] MEDS: OLANZapine 10 MG TABLET PO (22:53)
[2024-05-08] VITALS (39 sets, daily range): BP systolic 79–134; BP diastolic 44–109; PULSE 52–79; RESP 12–25; TEMP 34.9–37.7; O2SAT 93–100; BMI 26.4
[2024-05-08 00:18] LABS: Glucose, Whole Blood 106 mg/dL (60-115)
[2024-05-08] MEDS: propofoL 1,000 MG/100 ML VIAL 25.02 MG IVCONT ×3 (01:56→09:24)
[2024-05-08] MEDS: Midazolam HCl 2 MG/2 ML VIAL 4 MG IVPUSH ×7 (02:17→18:46)
[2024-05-08] MEDS: fentaNYL citrate/NS 1,000 MCG/100 ML PLAST..BAG 20 MCG IVCONT ×2 (02:19→06:04)
[2024-05-08 05:47] LABS: VBG Base Excess 2.6 mmol/L; VBG HCO3 24 mmol/L (22-26); VBG pCO2 28 mmHg; VBG pH 7.53 (7.32-7.43); VBG pO2 40 mmHg
[2024-05-08 05:50] LABS: MANUAL DIFF FLAG NO
[2024-05-08 05:54] LABS: Basophils Absolute Auto 0.1 X10*3/uL (0.0-0.2); Basophils Percent Auto 0.8 % (0-2); Eosinophils Absolute Auto 0.2 X10*3/uL (0.0-0.4); Hematocrit 36.5 % (42.0-52.0); Hemoglobin 12.1 g/dl (14.0-18.0); Imm Gran Abs Auto 0.03 X10*3/uL (0.00-0.03); Imm Gran Pct Auto 0.4 % (0.0-0.4); Lymphocytes Absolute Auto 1.8 X10*3/uL (1.2-4.9); Lymphocytes Percent Auto 25.4 % (20-40); Mean Corpuscular HGB Conc 33.2 g/dl (31.0-36.0); Mean Corpuscular Hemoglobin 27.5 pg (27.0-33.0); Mean Platelet Volume 9.7 fL (9.4-12.4); Monocytes Absolute Auto 0.7 X10*3/uL (0.1-1.2); Monocytes Percent Auto 9.7 % (2-11); Neutrophils Absolute Auto 4.4 x10*3/uL (2.0-8.3); Neutrophils Percent Auto 60.7 % (45-73); Platelet Count 400 X10*3/uL (160-400); Red Cell Distribution Width 15.1 % (11.0-16.0); White Blood Count 7.3 X10*3/uL (4.8-10.8)
[2024-05-08 06:05] LABS: Venous Blood Gas Refer to POC result
[2024-05-08 06:13] LABS: Alanine Aminotransferase 21 U/L (0-40); Albumin Level 3.7 g/dL (3.5-5.0); Anion Gap 13 (12-20); Aspartate Amino Transferase 25 U/L (5-37); Bilirubin Total 0.3 mg/dL (0.0-1.0); Blood Urea Nitrogen 18 mg/dL (9-16); Calcium 9.2 mg/dL (8.4-10.2); Carbon Dioxide 22 mmol/L (22-29); Chloride 108 mmol/L (96-108); Creatinine Clr Calc Pharmacy 128.1; Estimated Glomerular Filt Rate > 60; Glucose Random 110 mg/dL (60-115); Magnesium 2.1 mg/dL (1.6-2.6); Phosphorus 3.9 mg/dL (2.7-4.5); Potassium 3.2 mmol/L (3.3-5.1); Sodium 140 mmol/L (135-145)
[2024-05-08 06:22] LABS: Alkaline Phosphatase 91 U/L (39-117)
--- NOTE | 2024-05-08 06:25 | PM.EVENT ---
Documented by User: Mathew Bah NP 05/08/24 06:25 Event Note Date of Service: 05/08/24 Event Note: Hypotenision related to mechanical vent sedation Time Spent With Patient Time: Total time managing care of this patient today ____ minutes. Documented by User: Nirav Long MD 05/08/24 09:06 Event Note Date of Service: 05/08/24
--- NOTE | 2024-05-08 07:20 | PC.NURSE ---
Upon initial assessment at approximately 1900- Pt maxed out on Propofol gtt and Fentanyl gtts. Nimbex gtt infusing per APR. RASS +1, pt spontaneously opening eyes, not tracking, does not follow commands, OSORIO, restless/agitated. Bilateral wrist restraints in place per order. 1:[address] TOF 4/4 with 4 mA applied. HALL WORKER Olvin notified. EKG obtained- see report. Pt started on Versed gtt per APR, with good effect and Nimbex gtt paused. PRN Versed given per APR. Levophed gtt titrated per APR. OGT clamped. TF remains on hold per HALL WORKER. Abd soft, positive bowel sounds x4, passing flatus, small gelatinous BM. Started on PO Zyprexa and Lamictal per APR.
[2024-05-08] MEDS: Potassium Chloride/H20 40 MEQ/100 ML PIGGYBACK 50 MEQ IV (07:32)
[2024-05-08] MEDS: 0.9 % Sodium Chloride Flush 3 ML SYRINGE IVFLUSH ×3 (07:33→23:23)
[2024-05-08] MEDS: lamoTRIgine 25 MG TABLET 50 MG PO (08:52)
[2024-05-08] MEDS: Furosemide 20 MG/2 ML VIAL 10 MG IVPUSH (08:52)
[2024-05-08] MEDS: Thiamine HCL 100 MG TABLET 300 MG PO (08:52)
[2024-05-08] MEDS: Cyanocobalamin (Vitamin B-12) 1,000 MCG TABLET 1000 MCG PO (08:52)
[2024-05-08] MEDS: Famotidine/PF 20 MG/2 ML VIAL IVPUSH (08:52)
[2024-05-08] MEDS: OLANZapine 2.5 MG TABLET 7.5 MG PO (08:52)
[2024-05-08] MEDS: Folic Acid 1 MG TABLET 2 MG PO (08:53)
[2024-05-08] MEDS: Nystatin Powder 15 GM BOTTLE 1 APPL TOPICAL ×2 (08:53→21:54)
[2024-05-08] MEDS: Chlorhexidine Gluc Oral Rinse 15 ML MOUTHWASH BUCCAL ×3 (08:53→21:54)
--- NOTE | 2024-05-08 09:30 | P.PNCC_ITS ---
Subjective Subjective Date of Service: 05/08/24 Interval History: 49-year-old gentleman with underlying history of polysubstance abuse including amphetamine, cocaine, opioids, PCP, and alcohol, also with mood disorder with suicidal inclinations admitted on 04/30/2024 with polysubstance abuse, seizures, and possible suicidal ideations, initially to telemetry hadley, but with an acute decompensation secondary to multiple seizures requiring intubation and transfer to the intensive care unit. No events overnight. Critical Care Time (minutes): 45 Physical Exam 2 Vital Signs: Vital Signs: Last Vital Signs Temp 97.9 F 05/08/24 09:00 Pulse 52 05/08/24 09:00 Resp 16 05/08/24 09:00 BP 125/71 05/08/24 09:00 Pulse Ox 96 05/08/24 09:00 O2 Del Method Mechanical Ventil ation 05/08/24 09:00 O2 Flow Rate 2 04/30/24 15:47 FiO2 30 05/08/24 09:00 BMI result Body Mass Index 26.4 Const: General: no acute distress and other (Sedated on ventilatory support) Eyes: Sclerae: sclerae normal EOM: EOMs intact bilaterally Neck: Neck: Yes no lymphadenopathy, Yes trachea midline and Yes supple Resp: Auscultation: clear to auscultation bilaterally Cardio: Rate: regular rate Rhythm: regular rhythm Heart sounds: no gallops, no murmurs and no rubs GI: Palpation (GI): Soft to palpation and Other GI palpation findings present ( Nontender) Auscultation: normal bowel sounds Extrem: General: Yes no pedal edema, No clubbing and No cyanosis Objective Data Labs 05/08/24 05:32 05/08/24 05:32 Labs: Laboratory Results - last 24 hr 05/07/24 05/07/24 05/08/24 11:21 17:21 00:14 WBC RBC Hgb Hct MCV MCH MCHC RDW Plt Count MPV Immature Gran % (Auto) Neut % (Auto) Lymph % (Auto) [place] % (Auto) Eos % (Auto) Baso % (Auto) Lymph # (Auto) [place] # (Auto) Eos # (Auto) Baso # (Auto) Abs Immat Gran (auto) Absolute Neuts (auto) Absolute Nucleated RBC Nucleated RBC % (auto) VBG pH VBG pCO2 VBG pO2 VBG HCO3 VBG O2 Saturation VBG Base Excess Sodium Potassium Chloride Carbon Dioxide Anion Gap BUN Creatinine Estim Creat Clear Calc Estimated GFR POC Glucose 151 H 117 H 106 Random Glucose Calcium Phosphorus Magnesium Total Bilirubin AST ALT Alkaline Phosphatase Total Protein Albumin 05/08/24 05/08/24 05:32 05:44 WBC 7.3 RBC 4.40 L Hgb 12.1 L Hct 36.5 L MCV 83.0 MCH 27.5 MCHC 33.2 RDW 15.1 Plt Count 400 MPV 9.7 Immature Gran % (Auto) 0.4 Neut % (Auto) 60.7 Lymph % (Auto) 25.4 [place] % (Auto) 9.7 Eos % (Auto) 3.0 Baso % (Auto) 0.8 Lymph # (Auto) 1.8 [place] # (Auto) 0.7 Eos # (Auto) 0.2 Baso # (Auto) 0.1 Abs Immat Gran (auto) 0.03 Absolute Neuts (auto) 4.4 Absolute Nucleated RBC 0.000 Nucleated RBC % (auto) 0.0 VBG pH 7.53 H VBG pCO2 28 VBG pO2 40 VBG HCO3 24 VBG O2 Saturation 70.0 VBG Base Excess 2.6 Sodium 140 Potassium 3.2 L Chloride 108 Carbon Dioxide 22 Anion Gap 13 BUN 18 H Creatinine 0.72 Estim Creat Clear Calc 128.1 Estimated GFR > 60 POC Glucose Random Glucose 110 Calcium 9.2 Phosphorus 3.9 Magnesium 2.1 Total Bilirubin 0.3 AST 25 ALT 21 Alkaline Phosphatase 91 Total Protein 8.0 Albumin 3.7 Microbiology Microbiology Results: Microbiology 04/30/24 10:50 Blood - Venous Blood Culture - Final No growth after 5 days. 04/30/24 09:27 Blood - Venous Blood Culture - Final No growth after 5 days. Progress Note: A&P Assessment and plan (1) History of suicidal ideation: Status: Acute (2) Polysubstance abuse: Status: Acute (3) Seizure: Status: Acute Plan Assessment: 49-year-old gentleman with underlying polysubstance abuse, admitted polysubstance intoxication and new onset seizures resulting in acute toxic encephalopathy requiring multiple sedative drips and ventilatory support Plan: Neuro: toxic encephalopathy. CT head with no acute findings. Continue to titrate off sedative drips as tolerated. Seizures, unclear if substance withdrawal associated continue Keppra. Cardiac: No acute issues. Pulmonary: Intubated for airway protection secondary to high sedation requirements. Continue to titrate off as tolerated. Renal: No acute issues. Endo: No acute issues. GI: No acute issues. ID: No acute issues Heme/Onc: No acute issues. Psych: Underlying mood disorder, continue on Lamictal. Miscellaneous: No acute issues. Prophylaxis: Famotidine, heparin Diet: tube feed Critical care time spent: 45 minutes Quality Stroke Does the patient have a stroke diagnosis?: No VTE Prior VTE?: No VTE Risk Level:: Medical - moderate - high VTE Device Contraindication: N/A - Device Ordered VTE Drug Contraindication: N/A - Med Ordered
[2024-05-08] MEDS: dexmedeTOMIDidine HCL/NS 400 MCG/100 ML INFUS..BTL 20.88 MCG IVCONT (10:10)
[2024-05-08] MEDS: Haloperidol Lactate 5 MG/ML VIAL 10 MG IVPUSH (10:59)
[2024-05-08] MEDS: diphenhydrAMINE HCL 50 MG/ML VIAL IVPUSH ×2 (11:11→16:00)
[2024-05-08] MEDS: Ketamine HCl 500 MG in 0.9 % Sodium Chloride 250 ML 8.52 MG IVCONT (11:30)
[2024-05-08] MEDS: levETIRAcetam in NaCl (iso-os) 1,500 MG/100 ML PIGGYBACK 400 MG IV ×2 (11:50→23:18)
[2024-05-08] MEDS: dexmedeTOMIDidine HCL/NS 400 MCG/100 ML INFUS..BTL 31.31 MCG IVCONT ×4 (12:43→21:53)
--- NOTE | 2024-05-08 13:27 | MHC.CM.PN ---
Pt remains in ICU: extubated today and on n/c O2. CM to meet w/pt on 05/09 to review history and d/c planning needs: pt is listed as homeless - may need INPT psych d/t SI. Of note, pt's mother recently passed which may have contributed to pt's current MH crisis. CM to follow
[2024-05-08] MEDS: Enoxaparin Sodium 40 MG/0.4 ML SYRINGE SUBCUT (15:20)
[2024-05-08] MEDS: Midazolam HCl/NS 50 MG/50 ML PLAST..BAG IVCONT (16:27)
[2024-05-08 18:00] LABS: Glucose, Whole Blood 132 mg/dL (60-115)
[2024-05-08] MEDS: OLANZapine 10 MG VIAL IM (20:03)
--- NOTE | 2024-05-08 23:13 | PC.NURSE ---
Neuro: Sedated on Ketamine, Versed and Precedex, See MAR for details, PRN benadryl and Versed used as needed, patient with sitter at bedside requiring frequent redirection and continues to attempt to get out of bed. Cardiac: SB, slight generalized edema, clonidine patch to right upper arm intact. Levophed titrated off, BP stable, slight hypotension noted when sleeping, MD aware, Goal MAP above 60. Resp: Extubated this morning, calm at first, patient then became agitated shortly after extubation requiring sedation.?? GI/: NPO at current time, tellez removed this morning shortly after extubation, incontinent of large amount approximately 1430, due to void 2029, no urine noted, bladder scan >800, straight cath for 900mls green urine, DTV 0300? Endocrine: POC Q6 ID no antibiotics at current time? Integumentary/Musculoskeletal: Blisters to feet Central Lines:TLC to right IJ
[2024-05-09] VITALS (25 sets, daily range): BP systolic 97–139; BP diastolic 49–82; PULSE 57–111; RESP 12–23; TEMP 36.2–37.1; O2SAT 93–100; BMI 26.6
[2024-05-09] MEDS: dexmedeTOMIDidine HCL/NS 400 MCG/100 ML INFUS..BTL 31.31 MCG IVCONT ×3 (00:55→07:25)
[2024-05-09] MEDS: Ketamine HCl 500 MG in 0.9 % Sodium Chloride 250 ML 17.03 MG IVCONT ×2 (00:56→15:26)
[2024-05-09] MEDS: Midazolam HCl/NS 50 MG/50 ML PLAST..BAG IVCONT (04:00)
[2024-05-09 06:00] LABS: MANUAL DIFF FLAG NO
[2024-05-09 06:04] LABS: Basophils Absolute Auto 0.1 X10*3/uL (0.0-0.2); Basophils Percent Auto 0.8 % (0-2); Eosinophils Absolute Auto 0.2 X10*3/uL (0.0-0.4); Eosinophils Percent Auto 1.6 % (0-4); Hematocrit 38.4 % (42.0-52.0); Hemoglobin 12.6 g/dl (14.0-18.0); Imm Gran Abs Auto 0.03 X10*3/uL (0.00-0.03); Imm Gran Pct Auto 0.3 % (0.0-0.4); Lymphocytes Absolute Auto 1.4 X10*3/uL (1.2-4.9); Lymphocytes Percent Auto 14.7 % (20-40); Mean Corpuscular HGB Conc 32.8 g/dl (31.0-36.0); Mean Corpuscular Hemoglobin 27.3 pg (27.0-33.0); Mean Corpuscular Volume 83.1 fL (80.0-98.0); Mean Platelet Volume 9.6 fL (9.4-12.4); Monocytes Absolute Auto 0.8 X10*3/uL (0.1-1.2); Monocytes Percent Auto 8.4 % (2-11); Neutrophils Absolute Auto 6.9 x10*3/uL (2.0-8.3); Neutrophils Percent Auto 74.2 % (45-73); Platelet Count 408 X10*3/uL (160-400); Red Blood Count 4.62 X10*6/uL (4.60-5.80); Red Cell Distribution Width 14.8 % (11.0-16.0); White Blood Count 9.3 X10*3/uL (4.8-10.8)
[2024-05-09 06:06] LABS: VBG HCO3 24 mmol/L (22-26); VBG pCO2 39 mmHg; VBG pO2 54 mmHg
[2024-05-09 06:30] LABS: Albumin Level 3.8 g/dL (3.5-5.0); Anion Gap 11 (12-20); Blood Urea Nitrogen 17 mg/dL (9-16); Calcium 9.7 mg/dL (8.4-10.2); Carbon Dioxide 23 mmol/L (22-29); Chloride 114 mmol/L (96-108); Creatinine Clr Calc Pharmacy 133.7; Estimated Glomerular Filt Rate > 60; Glucose Random 115 mg/dL (60-115); Magnesium 2.2 mg/dL (1.6-2.6); Phosphorus 3.2 mg/dL (2.7-4.5); Potassium 3.8 mmol/L (3.3-5.1); Sodium 144 mmol/L (135-145)
[2024-05-09] MEDS: Chlorhexidine Gluc Oral Rinse 15 ML MOUTHWASH BUCCAL ×3 (08:02→19:35)
[2024-05-09] MEDS: Furosemide 20 MG/2 ML VIAL 10 MG IVPUSH (08:02)
[2024-05-09] MEDS: Famotidine/PF 20 MG/2 ML VIAL IVPUSH (08:03)
[2024-05-09] MEDS: 0.9 % Sodium Chloride Flush 3 ML SYRINGE IVFLUSH ×3 (08:03→22:07)
--- NOTE | 2024-05-09 08:40 | PM.CCPN ---
Subjective Subjective Date of Service: 05/09/24 Interval History: 49-year-old gentleman with underlying history of polysubstance abuse including amphetamine, cocaine, opioids, PCP, and alcohol, also with mood disorder with suicidal inclinations admitted on 04/30/2024 with polysubstance abuse, seizures, and possible suicidal ideations, initially to telemetry hadley, but with an acute decompensation secondary to multiple seizures requiring intubation and transfer to the intensive care unit. Extubated 05/08/2024. Continues to require high-dose sedative drips. No events overnight. Critical Care Time (minutes): 45 Physical Exam Vital Signs: Vital Signs: Last Vital Signs Temp 97.1 F 05/09/24 08:00 Pulse 57 05/09/24 08:00 Resp 18 05/09/24 08:00 BP 120/57 L 05/09/24 08:00 Pulse Ox 96 05/09/24 08:00 O2 Del Method Nasal Cannula 05/09/24 08:00 O2 Flow Rate 2 05/09/24 08:00 FiO2 30 05/08/24 09:52 BMI result Body Mass Index 26.6 Const: General: no acute distress and lethargic (Intermittently agitated) Orientation/consciousness: lethargic (Intermittently agitated) Eyes: Sclerae: sclerae normal EOM: EOMs intact bilaterally Neck: Neck: Yes no lymphadenopathy, Yes trachea midline and Yes supple Resp: Effort & Inspection: normal respiratory effort and no respiratory distress Auscultation: clear to auscultation bilaterally Cardio: Rate: regular rate Rhythm: regular rhythm Heart sounds: no gallops, no murmurs and no rubs GI: Palpation (GI): Soft to palpation and Other GI palpation findings present ( Nontender) Auscultation: normal bowel sounds Extrem: General: Yes no pedal edema, No clubbing and No cyanosis Objective Data Labs 05/09/24 05:45 05/09/24 05:45 Labs: Laboratory Results - last 24 hr 05/08/24 05/09/24 05/09/24 17:49 05:45 06:02 WBC 9.3 RBC 4.62 Hgb 12.6 L Hct 38.4 L MCV 83.1 MCH 27.3 MCHC 32.8 RDW 14.8 Plt Count 408 H MPV 9.6 Immature Gran % (Auto) 0.3 Neut % (Auto) 74.2 H Lymph % (Auto) 14.7 L [place] % (Auto) 8.4 Eos % (Auto) 1.6 Baso % (Auto) 0.8 Lymph # (Auto) 1.4 [place] # (Auto) 0.8 Eos # (Auto) 0.2 Baso # (Auto) 0.1 Abs Immat Gran (auto) 0.03 Absolute Neuts (auto) 6.9 Absolute Nucleated RBC 0.000 Nucleated RBC % (auto) 0.0 VBG pH 7.40 VBG pCO2 39 VBG pO2 54 VBG HCO3 24 VBG O2 Saturation 83.0 VBG Base Excess 0.0 Sodium 144 Potassium 3.8 Chloride 114 H Carbon Dioxide 23 Anion Gap 11 L BUN 17 H Creatinine 0.69 Estim Creat Clear Calc 133.7 Estimated GFR > 60 POC Glucose 132 H Random Glucose 115 Calcium 9.7 Phosphorus 3.2 Magnesium 2.2 Albumin 3.8 Microbiology Microbiology Results: Microbiology 04/30/24 10:50 Blood - Venous Blood Culture - Final No growth after 5 days. 04/30/24 09:27 Blood - Venous Blood Culture - Final No growth after 5 days. Progress Note: A&P Assessment and plan (1) History of suicidal ideation: Status: Acute (2) Polysubstance abuse: Status: Acute (3) Toxic encephalopathy: Status: Acute Plan Assessment: 49-year-old gentleman with underlying polysubstance abuse, admitted polysubstance intoxication and new onset seizures resulting in acute toxic encephalopathy requiring multiple sedative drips and ventilatory support Plan: Neuro: toxic encephalopathy. CT head with no acute findings. Continue to titrate off sedative drips as tolerated. Seizures, unclear if substance withdrawal associated, continue Keppra. Cardiac: No acute issues. Pulmonary: Intubated for airway protection secondary to high sedation requirements. Extubated 05/08/2024. Renal: No acute issues. Endo: No acute issues. GI: No acute issues. ID: No acute issues Heme/Onc: No acute issues. Psych: Underlying mood disorder, continue on Lamictal. Miscellaneous: No acute issues. Prophylaxis: Heparin Diet: NPO Critical care time spent: 45 minutes Quality Stroke Does the patient have a stroke diagnosis?: No VTE Prior VTE?: No VTE Risk Level:: Medical - moderate - high VTE Device Contraindication: N/A - Device Ordered VTE Drug Contraindication: N/A - Med Ordered
[2024-05-09 09:16] LABS: Venous Blood Gas Refer to POC result
--- NOTE | 2024-05-09 10:02 | MHC.CLN ---
F/U PT EXTUBATED YESTERDAY DISCUSSED AT ROUNDS WITH MD NOW NPO WHEN DIET TO ADVANCE, RECOMMEND REGULAR FOLLOWING WITH TEAM
[2024-05-09 10:07] LABS: Glucose, Whole Blood 116 mg/dL (60-115)
[2024-05-09 10:08] LABS: Glucose, Whole Blood 116 mg/dL (60-115)
[2024-05-09] MEDS: Thiamine HCL 100 MG TABLET 300 MG PO (10:43)
[2024-05-09] MEDS: Nystatin Powder 15 GM BOTTLE 1 APPL TOPICAL ×2 (10:43→21:58)
[2024-05-09] MEDS: Folic Acid 1 MG TABLET 2 MG PO (10:44)
[2024-05-09] MEDS: lamoTRIgine 25 MG TABLET 50 MG PO ×2 (10:44→19:34)
[2024-05-09] MEDS: Dextrose 5 % 1,000 ML 50 ML IVCONT (10:45)
[2024-05-09] MEDS: levETIRAcetam in NaCl (iso-os) 1,500 MG/100 ML PIGGYBACK 400 MG IV ×2 (10:45→22:06)
[2024-05-09] MEDS: Cyanocobalamin (Vitamin B-12) 1,000 MCG TABLET 1000 MCG PO (10:45)
[2024-05-09] MEDS: Midazolam HCl 2 MG/2 ML VIAL 4 MG IVPUSH ×6 (10:50→23:32)
[2024-05-09] MEDS: Buprenorphine/Naloxone 8/2 mg FILM 1 FILM SUBLINGUAL ×2 (11:36→19:36)
[2024-05-09] MEDS: ondansetron HCL 4 MG/2 ML VIAL IVPUSH (11:36)
[2024-05-09] MEDS: QUEtiapine Fumarate 200 MG TABLET PO ×2 (12:01→19:34)
[2024-05-09 12:03] LABS: Glucose, Whole Blood 110 mg/dL (60-115)
--- NOTE | 2024-05-09 12:34 | MHC.CM.PN ---
Pt extubated, alert at times but confused: on dex and ketamine for aggitation: Pt will be referred to CARE team once medically stable for assessment of placement d/t SI. CM to follow
[2024-05-09] MEDS: diphenhydrAMINE HCL 50 MG/ML VIAL IVPUSH ×3 (14:14→21:58)
[2024-05-09] MEDS: Enoxaparin Sodium 40 MG/0.4 ML SYRINGE SUBCUT (15:42)
[2024-05-09 16:32] LABS: Glucose, Whole Blood 173 mg/dL (60-115)
--- NOTE | 2024-05-09 18:14 | PC.NURSE ---
P: Alteration in Safety I: See nursing documentation and MD orders E: Versed and dex gtts turned off. Patient complaint of not feeling well, and anxiety; PRN versed and benadryl given with positive affect, home seroquil and suboxone restarted with positive affect per Dr Long. Ketamine rate decreased per Dr Long with positive affect. Patient stated sucidal ideation; constant architectural job captain at bedside.
[2024-05-09 21:06] LABS: Glucose, Whole Blood 96 mg/dL (60-115)
[2024-05-10] VITALS (14 sets, daily range): BP systolic 92–142; BP diastolic 46–86; PULSE 64–77; RESP 12–21; TEMP 36.4–37.1; O2SAT 94–99; BMI 26.9
[2024-05-10] MEDS: Midazolam HCl 2 MG/2 ML VIAL 4 MG IVPUSH ×4 (01:32→07:54)
[2024-05-10] MEDS: diphenhydrAMINE HCL 50 MG/ML VIAL IVPUSH ×3 (04:59→14:47)
[2024-05-10 05:39] LABS: VBG Base Excess 4.5 mmol/L; VBG HCO3 27 mmol/L (22-26); VBG pCO2 35 mmHg; VBG pO2 43 mmHg
[2024-05-10 05:54] LABS: MANUAL DIFF FLAG NO
[2024-05-10 05:55] LABS: Basophils Absolute Auto 0.1 X10*3/uL (0.0-0.2); Eosinophils Absolute Auto 0.2 X10*3/uL (0.0-0.4); Eosinophils Percent Auto 2.9 % (0-4); Imm Gran Abs Auto 0.02 X10*3/uL (0.00-0.03); Imm Gran Pct Auto 0.3 % (0.0-0.4); Lymphocytes Absolute Auto 2.2 X10*3/uL (1.2-4.9); Lymphocytes Percent Auto 28.4 % (20-40); Mean Corpuscular HGB Conc 33.3 g/dl (31.0-36.0); Mean Corpuscular Hemoglobin 27.5 pg (27.0-33.0); Mean Corpuscular Volume 82.6 fL (80.0-98.0); Mean Platelet Volume 9.9 fL (9.4-12.4); Monocytes Absolute Auto 0.7 X10*3/uL (0.1-1.2); Monocytes Percent Auto 8.8 % (2-11); Neutrophils Absolute Auto 4.6 x10*3/uL (2.0-8.3); Neutrophils Percent Auto 58.6 % (45-73); Platelet Count 406 X10*3/uL (160-400); Red Blood Count 4.36 X10*6/uL (4.60-5.80); White Blood Count 7.8 X10*3/uL (4.8-10.8)
[2024-05-10 06:10] LABS: Triglycerides 130 mg/dL (<150)
--- NOTE | 2024-05-10 06:15 | PC.NURSE ---
Assumed care at 1900. Upon initial assessment, patient sitting at the edge of bed, endorsing anxiety and agitation. Patient alert and oriented x4, occasionally vague and forgetful. Reports intense visual hallucinations and vivid dreams that make him afraid to sleep. DANTE Bah notified, ketamine gtt adjusted per APR. Denies pain, but reports intense anxiety. SR/ST on tele, HR 70s-100s. Lung sounds rhonchorous, able to clear secretions with strong cough. Saturating well on RA, RR even and unlabored. Swallows pills whole with water without issue. Urinal at bedside for voiding. Skin overall warm and intact, see skin assessment. Patient still endorses SI, 1-1 sitter at bedside for safety.? Approx 2200: Patient sleeping soundly, RR even and unlabored. Bed locked in lowest position, 1-1 remains at the bedside. Approx 0400: Patient resting comfortably, calm and cooperative. Able to make needs known. Patient reports decrease in hallucinations and vivid dreams.? 0524: Ketamine gtt paused per DANTE Bah, see MAR.
[2024-05-10 06:18] LABS: Alanine Aminotransferase 72 U/L (0-40); Albumin Level 3.7 g/dL (3.5-5.0); Anion Gap 13 (12-20); Aspartate Amino Transferase 55 U/L (5-37); Bilirubin Total 0.3 mg/dL (0.0-1.0); Blood Urea Nitrogen 23 mg/dL (9-16); Calcium 8.8 mg/dL (8.4-10.2); Carbon Dioxide 21 mmol/L (22-29); Chloride 109 mmol/L (96-108); Creatinine Clr Calc Pharmacy 121.3; Estimated Glomerular Filt Rate > 60; Glucose Random 119 mg/dL (60-115); Magnesium 2.2 mg/dL (1.6-2.6); Phosphorus 3.3 mg/dL (2.7-4.5); Potassium 3.3 mmol/L (3.3-5.1); Sodium 140 mmol/L (135-145); Total Protein 7.8 g/dL (6.5-8.0)
[2024-05-10 06:19] LABS: Venous Blood Gas Refer to POC result
[2024-05-10 06:21] LABS: Alkaline Phosphatase 97 U/L (39-117)
[2024-05-10 07:08] LABS: Glucose, Whole Blood 103 mg/dL (60-115)
[2024-05-10] MEDS: Folic Acid 1 MG TABLET 2 MG PO (07:39)
[2024-05-10] MEDS: Cyanocobalamin (Vitamin B-12) 1,000 MCG TABLET 1000 MCG PO (07:39)
[2024-05-10] MEDS: Thiamine HCL 100 MG TABLET 300 MG PO (07:39)
[2024-05-10] MEDS: lamoTRIgine 25 MG TABLET 50 MG PO ×2 (07:40→21:02)
[2024-05-10] MEDS: Potassium Chloride/H20 40 MEQ/100 ML PIGGYBACK 50 MEQ IV (07:48)
[2024-05-10] MEDS: 0.9 % Sodium Chloride Flush 3 ML SYRINGE IVFLUSH ×3 (07:54→21:05)
--- NOTE | 2024-05-10 08:35 | P.PNCC_ITS ---
Subjective Subjective Date of Service: 05/10/24 Interval History: 49-year-old gentleman with underlying history of polysubstance abuse including amphetamine, cocaine, opioids, PCP, and alcohol, also with mood disorder with suicidal inclinations admitted on 04/30/2024 with polysubstance abuse, seizures, and possible suicidal ideations, initially to telemetry [place], but with an acute decompensation secondary to multiple seizures requiring intubation and transfer to the intensive care unit. Extubated 05/08/2024. Titrated off sedative drips. No events overnight. Critical Care Time (minutes): 0 Physical Exam 2 Vital Signs: Vital Signs: Last Vital Signs Temp 97.9 F 05/10/24 00:00 Pulse 66 05/10/24 07:00 Resp 21 H 05/10/24 07:00 BP 111/55 L 05/10/24 07:00 Pulse Ox 95 05/10/24 07:00 O2 Del Method Room Air 05/10/24 07:00 O2 Flow Rate 2 05/09/24 09:00 FiO2 30 05/08/24 09:52 BMI result Body Mass Index 26.9 Const: General: no acute distress, alert and awake Eyes: Sclerae: sclerae normal EOM: EOMs intact bilaterally Neck: Neck: Yes no lymphadenopathy, Yes trachea midline and Yes supple Resp: Effort & Inspection: normal respiratory effort and no respiratory distress Auscultation: clear to auscultation bilaterally Cardio: Rate: regular rate Rhythm: regular rhythm Heart sounds: no gallops, no murmurs and no rubs GI: Palpation (GI): Soft to palpation and Other GI palpation findings present ( Nontender) Auscultation: normal bowel sounds Extrem: General: Yes no pedal edema, No clubbing and No cyanosis Objective Data Labs 05/10/24 05:14 05/10/24 05:14 Labs: Laboratory Results - last 24 hr 05/08/24 05/09/24 05/09/24 23:54 06:07 11:41 WBC RBC Hgb Hct MCV MCH MCHC RDW Plt Count MPV Immature Gran % (Auto) Neut % (Auto) Lymph % (Auto) [place] % (Auto) Eos % (Auto) Baso % (Auto) Lymph # (Auto) [place] # (Auto) Eos # (Auto) Baso # (Auto) Abs Immat Gran (auto) Absolute Neuts (auto) Absolute Nucleated RBC Nucleated RBC % (auto) VBG pH VBG pCO2 VBG pO2 VBG HCO3 VBG O2 Saturation VBG Base Excess Sodium Potassium Chloride Carbon Dioxide Anion Gap BUN Creatinine Estim Creat Clear Calc Estimated GFR POC Glucose 116 H 116 H 110 Random Glucose Calcium Phosphorus Magnesium Total Bilirubin AST ALT Alkaline Phosphatase Total Protein Albumin Triglycerides 05/09/24 05/09/24 05/10/24 16:29 21:02 05:14 WBC 7.8 RBC 4.36 L Hgb 12.0 L Hct 36.0 L MCV 82.6 MCH 27.5 MCHC 33.3 RDW 15.0 Plt Count 406 H MPV 9.9 Immature Gran % (Auto) 0.3 Neut % (Auto) 58.6 Lymph % (Auto) 28.4 [place] % (Auto) 8.8 Eos % (Auto) 2.9 Baso % (Auto) 1.0 Lymph # (Auto) 2.2 [place] # (Auto) 0.7 Eos # (Auto) 0.2 Baso # (Auto) 0.1 Abs Immat Gran (auto) 0.02 Absolute Neuts (auto) 4.6 Absolute Nucleated RBC 0.000 Nucleated RBC % (auto) 0.0 VBG pH VBG pCO2 VBG pO2 VBG HCO3 VBG O2 Saturation VBG Base Excess Sodium 140 Potassium 3.3 Chloride 109 H Carbon Dioxide 21 L Anion Gap 13 BUN 23 H Creatinine 0.76 Estim Creat Clear Calc 121.3 Estimated GFR > 60 POC Glucose 173 H 96 Random Glucose 119 H Calcium 8.8 D Phosphorus 3.3 Magnesium 2.2 Total Bilirubin 0.3 AST 55 H ALT 72 H Alkaline Phosphatase 97 Total Protein 7.8 Albumin 3.7 Triglycerides 130 05/10/24 05/10/24 05:36 07:04 WBC RBC Hgb Hct MCV MCH MCHC RDW Plt Count MPV Immature Gran % (Auto) Neut % (Auto) Lymph % (Auto) [place] % (Auto) Eos % (Auto) Baso % (Auto) Lymph # (Auto) [place] # (Auto) Eos # (Auto) Baso # (Auto) Abs Immat Gran (auto) Absolute Neuts (auto) Absolute Nucleated RBC Nucleated RBC % (auto) VBG pH 7.50 H VBG pCO2 35 VBG pO2 43 VBG HCO3 27 H VBG O2 Saturation 67.0 VBG Base Excess 4.5 Sodium Potassium Chloride Carbon Dioxide Anion Gap BUN Creatinine Estim Creat Clear Calc Estimated GFR POC Glucose 103 Random Glucose Calcium Phosphorus Magnesium Total Bilirubin AST ALT Alkaline Phosphatase Total Protein Albumin Triglycerides Microbiology Microbiology Results: Microbiology 04/30/24 10:50 Blood - Venous Blood Culture - Final No growth after 5 days. 04/30/24 09:27 Blood - Venous Blood Culture - Final No growth after 5 days. Progress Note: A&P Assessment and plan (1) Polysubstance abuse: Status: Acute (2) Toxic encephalopathy: Status: Acute (3) History of suicidal ideation: Status: Acute Plan Assessment: 49-year-old gentleman with underlying polysubstance abuse, admitted polysubstance intoxication and new onset seizures resulting in acute toxic encephalopathy requiring multiple sedative drips and ventilatory support Plan: Neuro: Toxic encephalopathy, improved significantly titrated off sedative drips. CT head with no acute findings. Cardiac: No acute issues. Pulmonary: Intubated for airway protection secondary to high sedation requirements. Extubated 05/08/2024. Renal: No acute issues. Endo: No acute issues. GI: No acute issues. ID: No acute issues Heme/Onc: No acute issues. Psych: Underlying mood disorder, continue on Lamictal. Psychiatry evaluation is pending. Suicidal ideations continue 1:1 until psychiatry evaluation. Miscellaneous: No acute issues. Prophylaxis: Heparin Diet: Regular Quality Stroke Does the patient have a stroke diagnosis?: No VTE Prior VTE?: No VTE Risk Level:: Medical - moderate - high VTE Device Contraindication: N/A - Device Ordered VTE Drug Contraindication: N/A - Med Ordered
[2024-05-10] MEDS: Buprenorphine/Naloxone 8/2 mg FILM 1 FILM SUBLINGUAL ×3 (08:59→21:02)
[2024-05-10] MEDS: Nystatin Powder 15 GM BOTTLE 1 APPL TOPICAL (09:00)
--- NOTE | 2024-05-10 10:59 | PC.NURSE ---
Neuro: A&O, ?anxious/agitated. Versed IVP and benadryl IVP given per MAR. Resp: Clear lung sound bilaterally,? on? RA?? Cardiac: Sinus Rhythm? GI: unknown LBM , +bowel sounds, poor appetite.? : utilizing the urinal Skin: ?Impaired skin integrity - see skin assessment? Lines: TLC R IJ removed, peripheral IVs. Plan: Transfer to [facility]. No longer requiring ICU-level care. ?
--- NOTE | 2024-05-10 12:51 | MHC.CM.PN ---
[facility] as [facility] is clinically stable. Pt will be seen by CARE team for ? INPT psych needs. Pt requesting detox care for substance misuse: informed pt on process. HCP declined. CM to follow
[2024-05-10] MEDS: LORazepam 1 MG TABLET PO ×2 (13:05→17:33)
--- NOTE | 2024-05-10 13:51 | PM.EVENT ---
Event Note Date of Service: 05/10/24 Event Note: This is a 49-year-old gentleman with underlying history of polysubstance abuse including amphetamine, cocaine, opioids, PCP, and alcohol, also with mood disorder admitted on 04/30/2024 with polysubstance abuse to the medical floor but with acute decompensation secondary to multiple seizures requiring intubation and transfer to the intensive care unit. intubated 04/30, extubated 05/08; titrated off sedative drips, downgraded to the medical floor 05/10. Of note patient was admitted from April 20 to 04/25 for polysubstance abuse, drug overdose Acute toxic encephalopathy due to Polysubstance use/alcohol use disorder s/p ketamine, precedex and versed drips in ICU Seen by addiction Medicine-given additional dose of Suboxone Continue baseline Suboxone prn ativan continue thiamine, folic acid supplementation Seizure disorder Thought to be due to substance use/withdrawal Initially treated with Keppra, Keppra discontinued in the ICU CT scan of brain negative Neuro consult pending Mood disorder with Suicidal ideation continued on baseline seroquel started on lamictal by ICU Psychiatric consult pending continue sitter for safety will need Care team eval for LOC when medically clear Mild transaminitis Likely due to substance use Has been higher in the past Outpatient follow-up Tobacco dependence Continue nicotine replacement DVT prophylaxis-Lovenox Time Spent With Patient Time: Total time managing care of this patient today ____ minutes.
--- NOTE | 2024-05-10 14:21 | P.PNADD_ITS ---
Subjective Subjective Date of Service: 05/10/24 Reason For Visit: Overdose, seizure, SI Interim History: Patient seen briefly in ICU while awaiting transfer to M/T floor He has been in ICU since 04/30 intubated and sedated following what are believed alcohol withdrawal seizures Extubated on 05/08. Patient known to t/w and ACS via admission earlier this month for toxic encephalopathy related to polysubstance use. Today he is awake, alert, verbalizing anxiety. He states several times, I just feel like garbage, my whole body . He received suboxone 8mg earlier today He states he has been drinking alot and using alot of drugs, I don't even know what I have been using . Review of Systems Constitutional: Reports as per HPI Mental Status Exam Mental Status Exam Patient Orientation: Person and Place Level of Consciousness: Awake, Appropriate and Alert Patient Behavior: Appropriate and Anxious Mood Description: Anxious Affect Description: Anxious Speech Pattern: Clear Hallucinations: None Thought Process: Racing Judgement: Fair Diagnostics Vital Signs (24Hr): Vital Signs - 24 hr 05/09/24 15:00 05/09/24 16:00 05/09/24 17:00 Temperature 98.2 F Pulse Rate 111 H 104 H 96 Respiratory Rate 18 16 12 Blood Pressure 128/82 124/75 124/75 Pulse Oximetry 95 95 100 Oxygen Delivery Method Room Air Room Air Room Air 05/09/24 17:57 05/09/24 19:00 05/09/24 19:57 Temperature 98.7 F Pulse Rate 93 93 89 Respiratory Rate 13 20 12 Blood Pressure 124/75 120/69 120/69 Pulse Oximetry 100 99 100 Oxygen Delivery Method Room Air Room Air Room Air 05/09/24 20:54 05/09/24 21:49 05/09/24 22:50 Temperature Pulse Rate 86 76 75 Respiratory Rate 13 Blood Pressure 110/74 125/61 115/62 Pulse Oximetry 93 93 99 Oxygen Delivery Method Room Air Room Air Room Air 05/09/24 22:58 05/10/24 00:00 05/10/24 01:00 Temperature 97.9 F Pulse Rate 77 74 Respiratory Rate 20 13 15 Blood Pressure 108/56 L 110/51 L Pulse Oximetry 94 94 Oxygen Delivery Method Room Air Room Air 05/10/24 01:58 05/10/24 03:00 05/10/24 03:59 Temperature Pulse Rate 71 72 70 Respiratory Rate 14 12 14 Blood Pressure 93/48 L 108/52 L 92/46 L Pulse Oximetry 94 95 94 Oxygen Delivery Method Room Air Room Air Room Air 05/10/24 05:00 05/10/24 05:47 05/10/24 05:58 Temperature Pulse Rate 67 66 Respiratory Rate 15 15 15 Blood Pressure 103/53 L 104/49 L Pulse Oximetry 94 95 Oxygen Delivery Method Room Air Room Air 05/10/24 07:00 05/10/24 12:00 05/10/24 14:20 Temperature 98.0 F Pulse Rate 66 70 64 Respiratory Rate 21 H 18 18 Blood Pressure 111/55 L 142/76 H Pulse Oximetry 95 98 99 Oxygen Delivery Method Room Air Room Air Room Air BMI result Body Mass Index 26.9 Labs 05/10/24 05:14 05/10/24 05:14 Labs: Laboratory Results - last 48 hr 05/08/24 05/08/24 05/09/24 17:49 23:54 05:45 WBC 9.3 RBC 4.62 Hgb 12.6 L Hct 38.4 L MCV 83.1 MCH 27.3 MCHC 32.8 RDW 14.8 Plt Count 408 H MPV 9.6 Immature Gran % (Auto) 0.3 Neut % (Auto) 74.2 H Lymph % (Auto) 14.7 L [place] % (Auto) 8.4 Eos % (Auto) 1.6 Baso % (Auto) 0.8 Lymph # (Auto) 1.4 [place] # (Auto) 0.8 Eos # (Auto) 0.2 Baso # (Auto) 0.1 Abs Immat Gran (auto) 0.03 Absolute Neuts (auto) 6.9 Absolute Nucleated RBC 0.000 Nucleated RBC % (auto) 0.0 VBG pH VBG pCO2 VBG pO2 VBG HCO3 VBG O2 Saturation VBG Base Excess Sodium 144 Potassium 3.8 Chloride 114 H Carbon Dioxide 23 Anion Gap 11 L BUN 17 H Creatinine 0.69 Estim Creat Clear Calc 133.7 Estimated GFR > 60 POC Glucose 132 H 116 H Random Glucose 115 Calcium 9.7 Phosphorus 3.2 Magnesium 2.2 Total Bilirubin AST ALT Alkaline Phosphatase Total Protein Albumin 3.8 Triglycerides 05/09/24 05/09/24 05/09/24 06:02 06:07 11:41 WBC RBC Hgb Hct MCV MCH MCHC RDW Plt Count MPV Immature Gran % (Auto) Neut % (Auto) Lymph % (Auto) [place] % (Auto) Eos % (Auto) Baso % (Auto) Lymph # (Auto) [place] # (Auto) Eos # (Auto) Baso # (Auto) Abs Immat Gran (auto) Absolute Neuts (auto) Absolute Nucleated RBC Nucleated RBC % (auto) VBG pH 7.40 VBG pCO2 39 VBG pO2 54 VBG HCO3 24 VBG O2 Saturation 83.0 VBG Base Excess 0.0 Sodium Potassium Chloride Carbon Dioxide Anion Gap BUN Creatinine Estim Creat Clear Calc Estimated GFR POC Glucose 116 H 110 Random Glucose Calcium Phosphorus Magnesium Total Bilirubin AST ALT Alkaline Phosphatase Total Protein Albumin Triglycerides 05/09/24 05/09/24 05/10/24 16:29 21:02 05:14 WBC 7.8 RBC 4.36 L Hgb 12.0 L Hct 36.0 L MCV 82.6 MCH 27.5 MCHC 33.3 RDW 15.0 Plt Count 406 H MPV 9.9 Immature Gran % (Auto) 0.3 Neut % (Auto) 58.6 Lymph % (Auto) 28.4 [place] % (Auto) 8.8 Eos % (Auto) 2.9 Baso % (Auto) 1.0 Lymph # (Auto) 2.2 [place] # (Auto) 0.7 Eos # (Auto) 0.2 Baso # (Auto) 0.1 Abs Immat Gran (auto) 0.02 Absolute Neuts (auto) 4.6 Absolute Nucleated RBC 0.000 Nucleated RBC % (auto) 0.0 VBG pH VBG pCO2 VBG pO2 VBG HCO3 VBG O2 Saturation VBG Base Excess Sodium 140 Potassium 3.3 Chloride 109 H Carbon Dioxide 21 L Anion Gap 13 BUN 23 H Creatinine 0.76 Estim Creat Clear Calc 121.3 Estimated GFR > 60 POC Glucose 173 H 96 Random Glucose 119 H Calcium 8.8 D Phosphorus 3.3 Magnesium 2.2 Total Bilirubin 0.3 AST 55 H ALT 72 H Alkaline Phosphatase 97 Total Protein 7.8 Albumin 3.7 Triglycerides 130 05/10/24 05/10/24 05:36 07:04 WBC RBC Hgb Hct MCV MCH MCHC RDW Plt Count MPV Immature Gran % (Auto) Neut % (Auto) Lymph % (Auto) [place] % (Auto) Eos % (Auto) Baso % (Auto) Lymph # (Auto) [place] # (Auto) Eos # (Auto) Baso # (Auto) Abs Immat Gran (auto) Absolute Neuts (auto) Absolute Nucleated RBC Nucleated RBC % (auto) VBG pH 7.50 H VBG pCO2 35 VBG pO2 43 VBG HCO3 27 H VBG O2 Saturation 67.0 VBG Base Excess 4.5 Sodium Potassium Chloride Carbon Dioxide Anion Gap BUN Creatinine Estim Creat Clear Calc Estimated GFR POC Glucose 103 Random Glucose Calcium Phosphorus Magnesium Total Bilirubin AST ALT Alkaline Phosphatase Total Protein Albumin Triglycerides Imaging Radiology Impressions: ITS Impressions Chest X-Ray 04/30/24 09:41 IMPRESSION: Low lung volumes. No acute cardiopulmonary abnormality. Electronically signed by: Demond Williamson MD 04/30/2024 10:07 AM EDT RP Cervical Spine CT 04/30/24 11:17 IMPRESSION: No evidence of fracture or malalignment of the cervical spine. Electronically signed by: Demond Williamson MD 04/30/2024 12:32 PM EDT RP Head CT 04/30/24 11:17 IMPRESSION: No acute intracranial abnormality. Electronically signed by: Demond Williamson MD 04/30/2024 12:27 PM EDT RP Extremity Ultrasound 05/01/24 10:33 IMPRESSION: 2.9 x 2.6 x 0.8 cm phlegmon versus abscess, mid left forearm. Electronically signed by: Martin Melvin MD 05/01/2024 10:58 AM EDT RP Medications Medications Current Medications Buprenorphine/Naloxone (Buprenorphine/Naloxone 8/2 Mg Film) 1 film SUBLINGUAL BID [facility] Last Admin: 05/10/24 08:59 Dose: 1 film Cyanocobalamin (Cyanocobalamin (Vitamin B-12) 1,000 Mcg Tablet) 1,000 mcg PO DAILY [facility] Last Admin: 05/10/24 07:39 Dose: 1,000 mcg Diphenhydramine HCl (Diphenhydramine Hcl 50 Mg/Ml Vial) 50 mg IVPUSH Q4H PRN PRN Reason: agitation Last Admin: 05/10/24 10:31 Dose: 50 mg Enoxaparin Sodium (Enoxaparin Sodium 40 Mg/0.4 Ml Syringe) 40 mg SUBCUT Q24H [facility] Last Admin: 05/09/24 15:42 Dose: 40 mg Folic Acid (Folic Acid 1 Mg Tablet) 2 mg PO DAILY [facility] Last Admin: 05/10/24 07:39 Dose: 2 mg Lamotrigine (Lamotrigine 25 Mg Tablet) 50 mg PO BID [facility] Last Admin: 05/10/24 07:40 Dose: 50 mg Lorazepam (Lorazepam 1 Mg Tablet) 1 mg PO Q4H PRN PRN Reason: withdawal Last Admin: 05/10/24 13:05 Dose: 1 mg Naloxone HCl (Naloxone Hcl 0.4 Mg/Ml Vial) 0.2 mg IVPUSH Q2M PRN PRN Reason: Excessive sedation or RR < 8 Nicotine (Nicotine 21 Mg Patch.Td24) 21 mg TRANSDERMA DAILY [facility] Last Admin: 05/10/24 09:01 Dose: Not Given Nystatin (Nystatin Powder 15 Gm Bottle) 1 appl TOPICAL BID [facility]; Protocol Last Admin: 05/10/24 09:00 Dose: 1 appl Ondansetron HCl (Ondansetron Hcl 4 Mg/2 Ml Vial) 4 mg IVPUSH Q8H PRN PRN Reason: Nausea and Vomiting Last Admin: 05/09/24 11:36 Dose: 4 mg Ondansetron HCl (Ondansetron Hcl 4 Mg/2 Ml Vial) 4 mg IVPUSH Q4H PRN PRN Reason: Nausea and Vomiting Quetiapine Fumarate (Quetiapine Fumarate 200 Mg Tablet) 200 mg PO BEDTIME [facility] Last Admin: 05/09/24 19:34 Dose: 200 mg Sodium Chloride (0.9 % Sodium Chloride Flush 3 Ml Syringe) 3 ml IVFLUSH QSHIFT [facility] Last Admin: 05/10/24 07:54 Dose: 3 ml Thiamine HCl (Thiamine Hcl 100 Mg Tablet) 300 mg PO DAILY [facility] Last Admin: 05/10/24 07:39 Dose: 300 mg Allergies Allergies Allergy/AdvReac Type Severity Reaction Status Date / Time No Known Allergies Allergy Verified 04/30/24 19:27 Assessment & Plan Assessment & Plan (1) Opioid use disorder: Status: Acute Code(s): F11.90 - Opioid use, unspecified, uncomplicated Assessment and Plan: * additional one time dose of suboxone 8mg * continue 8mg BID dosing * PRN lorazepam appropriate for now --will follow up in AM Total time managing care of this patient today _25___ minutes.
[2024-05-10] MEDS: Enoxaparin Sodium 40 MG/0.4 ML SYRINGE SUBCUT (14:47)
--- NOTE | 2024-05-10 16:30 | P.CNNE_ITS ---
History of Present Illness Data of Consult Service Date: 05/10/24 Primary Care Provider: Jennifer Ramirez MD HPI Reason for consult: Seizure 49 years old man with polydrug abuse who was found in a confused rocking state at a local [place] and was brought to emergency room where he apparently had a seizure. He said that he did not have seizures before this. His tox screen was positive for multiple drugs including PCP. His head scan revealed a right subcortical chronic lacunar type lesion but otherwise no significant abnormality. Review of Systems 2 Review of Systems: No recent cold or flu-like illness. 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 Patient Tobacco Use Status: Tobacco use Unknown Substance Use Type: Amphetamines, Crack/Cocaine, Methamphetamine and Opiates Meds Allergies Allergy/AdvReac Type Severity Reaction Status Date / Time No Known Allergies Allergy Verified 04/30/24 19:27 Active Medications: Current Medications Buprenorphine/Naloxone (Buprenorphine/Naloxone 8/2 Mg Film) 1 film SUBLINGUAL BID [facility] Last Admin: 05/10/24 08:59 Dose: 1 film Cyanocobalamin (Cyanocobalamin (Vitamin B-12) 1,000 Mcg Tablet) 1,000 mcg PO DAILY [facility] Last Admin: 05/10/24 07:39 Dose: 1,000 mcg Diphenhydramine HCl (Diphenhydramine Hcl 50 Mg/Ml Vial) 50 mg IVPUSH Q4H PRN PRN Reason: agitation Last Admin: 05/10/24 14:47 Dose: 50 mg Enoxaparin Sodium (Enoxaparin Sodium 40 Mg/0.4 Ml Syringe) 40 mg SUBCUT Q24H [facility] Last Admin: 05/10/24 14:47 Dose: 40 mg Folic Acid (Folic Acid 1 Mg Tablet) 2 mg PO DAILY [facility] Last Admin: 05/10/24 07:39 Dose: 2 mg Lamotrigine (Lamotrigine 25 Mg Tablet) 50 mg PO BID [facility] Last Admin: 05/10/24 07:40 Dose: 50 mg Lorazepam (Lorazepam 1 Mg Tablet) 1 mg PO Q4H PRN PRN Reason: withdawal Last Admin: 05/10/24 13:05 Dose: 1 mg Naloxone HCl (Naloxone Hcl 0.4 Mg/Ml Vial) 0.2 mg IVPUSH Q2M PRN PRN Reason: Excessive sedation or RR < 8 Nicotine (Nicotine 21 Mg Patch.Td24) 21 mg TRANSDERMA DAILY [facility] Last Admin: 05/10/24 09:01 Dose: Not Given Nystatin (Nystatin Powder 15 Gm Bottle) 1 appl TOPICAL BID [facility]; Protocol Last Admin: 05/10/24 09:00 Dose: 1 appl Ondansetron HCl (Ondansetron Hcl 4 Mg/2 Ml Vial) 4 mg IVPUSH Q8H PRN PRN Reason: Nausea and Vomiting Last Admin: 05/09/24 11:36 Dose: 4 mg Ondansetron HCl (Ondansetron Hcl 4 Mg/2 Ml Vial) 4 mg IVPUSH Q4H PRN PRN Reason: Nausea and Vomiting Quetiapine Fumarate (Quetiapine Fumarate 200 Mg Tablet) 200 mg PO BEDTIME [facility] Last Admin: 05/09/24 19:34 Dose: 200 mg Sodium Chloride (0.9 % Sodium Chloride Flush 3 Ml Syringe) 3 ml IVFLUSH QSHIFT [facility] Last Admin: 05/10/24 14:47 Dose: 3 ml Thiamine HCl (Thiamine Hcl 100 Mg Tablet) 300 mg PO DAILY [facility] Last Admin: 05/10/24 07:39 Dose: 300 mg Home Medications ?Medication ?Instructions ?Recorded ?Confirmed ?Last Taken ?Type buprenorphine 8 mg-naloxone 2 mg 1 film sublingual BID 04/20/24 04/30/24 Unknown History sublingual film (Suboxone) dextroamphetamine-amphetamine 20 1 tab PO BID@0900,1400 04/20/24 04/30/24 Unknown History mg tablet escitalopram oxalate 20 mg tablet 20 mg PO DAILY 04/20/24 04/30/24 Unknown History lisdexamfetamine 60 mg capsule 60 mg PO DAILY 04/20/24 04/30/24 Unknown History (Vyvanse) propranolol 20 mg tablet 20 mg PO BID 04/20/24 04/30/24 Unknown History quetiapine 200 mg tablet 200 mg PO BEDTIME 04/20/24 04/30/24 Unknown History Physical Exam 2 Vital Signs: Vital Signs: Last Vital Signs Temp 97.6 F 05/10/24 15:15 Pulse 69 05/10/24 15:15 Resp 18 05/10/24 15:15 BP 140/86 H 05/10/24 15:15 Pulse Ox 95 05/10/24 15:15 O2 Del Method Room Air 05/10/24 15:15 O2 Flow Rate 2 05/09/24 09:00 FiO2 30 05/08/24 09:52 BMI result Body Mass Index 26.9 Neuro: Other: He was alert and awake with normal spontaneity of speech fluency comprehension and anxious and nervous affect. Face was symmetrical. Visual jorgensen are full. There was no focal arm or leg weakness. Plantars were flexor. Deep tendon reflexes were absent. Results Labs 05/10/24 05:14 05/10/24 05:14 Labs: Short CBC 05/10/24 Range/Units 05:14 WBC 7.8 (4.8-10.8) X10*3/uL Hgb 12.0 L (14.0-18.0) g/dl Hct 36.0 L (42.0-52.0) % Plt Count 406 H (160-400) X10*3/uL BMP 05/10/24 05:14 Sodium 140 Potassium 3.3 Chloride 109 H Carbon Dioxide 21 L BUN 23 H Creatinine 0.76 Calcium 8.8 D Liver Function 05/10/24 Range/Units 05:14 Total Bilirubin 0.3 (0.0-1.0) mg/dL AST 55 H (5-37) U/L ALT 72 H (0-40) U/L Alkaline Phosphatase 97 (39-117) U/L Albumin 3.7 (3.5-5.0) g/dL head CT revealed a chronic right subcortical ischemic type lesion but otherwise no significant abnormality. Microbiology Microbiology Results: Microbiology 04/30/24 10:50 Blood - Venous Blood Culture - Final No growth after 5 days. 04/30/24 09:27 Blood - Venous Blood Culture - Final No growth after 5 days. Assessment and Plan (1) Seizure: Status: Acute 49 years old man who came to hospital in a confused state with tox screen positive for multiple drugs. Apparently he had a seizure in emergency room and was treated with levetiracetam. He said that he did not have seizures before this. I recommend an EEG and if that is negative tapering of levetiracetam. Procedures Date of Service Date of Service: 05/10/24
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
[2024-05-10] MEDS: QUEtiapine Fumarate 200 MG TABLET PO (21:02)
[2024-05-11 03:26] VITALS: BP 117/39; PULSE 70; RESP 19; TEMP 36.6; O2SAT 93
[2024-05-11 06:43] LABS: Anion Gap 9 (12-20); Blood Urea Nitrogen 15 mg/dL (9-16); Calcium 8.8 mg/dL (8.4-10.2); Carbon Dioxide 26 mmol/L (22-29); Chloride 108 mmol/L (96-108); Creatinine Clr Calc Pharmacy 129.9; Estimated Glomerular Filt Rate > 60; Glucose Random 110 mg/dL (60-115); Potassium 3.3 mmol/L (3.3-5.1); Sodium 140 mmol/L (135-145)
[2024-05-11] MEDS: LORazepam 1 MG TABLET PO ×3 (07:44→21:00)
[2024-05-11] MEDS: Thiamine HCL 100 MG TABLET 300 MG PO (07:44)
[2024-05-11] MEDS: Cyanocobalamin (Vitamin B-12) 1,000 MCG TABLET 1000 MCG PO (07:44)
[2024-05-11] MEDS: lamoTRIgine 25 MG TABLET 50 MG PO ×2 (07:44→20:24)
[2024-05-11] MEDS: Folic Acid 1 MG TABLET 2 MG PO (07:44)
[2024-05-11] MEDS: 0.9 % Sodium Chloride Flush 3 ML SYRINGE IVFLUSH ×3 (07:45→20:25)
[2024-05-11] MEDS: Nystatin Powder 15 GM BOTTLE 1 APPL TOPICAL (07:47)
[2024-05-11 08:00] VITALS: BP 119/69; PULSE 66; RESP 17; TEMP 36.6; O2SAT 97
[2024-05-11] MEDS: Buprenorphine/Naloxone 8/2 mg FILM 1 FILM SUBLINGUAL ×2 (09:17→20:24)
[2024-05-11] MEDS: ondansetron HCL 4 MG/2 ML VIAL IVPUSH (09:17)
--- NOTE | 2024-05-11 11:20 | MHC.CM.PN ---
Per rounds, pt. is medically stable and awaiting inpt. psych placement.
[2024-05-11 11:45] VITALS: BP 135/70; PULSE 77; RESP 18; TEMP 37.1; O2SAT 94
--- NOTE | 2024-05-11 13:54 | HO.PM.IMPN ---
Subjective Subjective Date of Service: 05/11/24 Interval History: seen and examined this morning follow up for polysubstance use and withdrawal No overnight events. Reporting some nausea this morning Review of Systems Review of Systems: Yes all other systems are reviewed and are negative Constitutional Constitutional: Denies chills and Denies fever(s) Cardiovascular Cardiovascular: Denies chest pain and Denies palpitations Endocrine Endocrine: Denies palpitations Physical Exam Vital Signs: Vital Signs: Last Vital Signs Temp 98.7 F 05/11/24 11:45 Pulse 77 05/11/24 11:45 Resp 18 05/11/24 11:45 BP 135/70 05/11/24 11:45 Pulse Ox 94 05/11/24 11:45 O2 Del Method Room Air 05/11/24 11:45 O2 Flow Rate 2 05/09/24 09:00 FiO2 30 05/08/24 09:52 BMI result Body Mass Index 26.9 Const: General: cooperative, comfortable, no acute distress, alert and awake Nutritional Appearance: average body habitus Orientation/consciousness: patient oriented x3 Resp: Effort & Inspection: normal respiratory effort, able to speak in complete sentences, no respiratory distress and no use of accessory muscles Cardio: Rate: regular rate GI: Inspection: No distended Palpation (GI): Soft to palpation Skin: Other: small lump above wrist left arm, no erythema swelling, fluctuance or open wound; does not appear infected Neuro: General: patient oriented x3, moves all extremities and CN's II-XI intact bilaterally Extrem: General: Yes no pedal edema Objective Data Active Medications Buprenorphine/Naloxone (Buprenorphine/Naloxone 8/2 Mg Film) 1 film SUBLINGUAL BID [facility] Last Admin: 05/11/24 09:17 Dose: 1 film Documented By: KATHIE Cyanocobalamin (Cyanocobalamin (Vitamin B-12) 1,000 Mcg Tablet) 1,000 mcg PO DAILY [facility] Last Admin: 05/11/24 07:44 Dose: 1,000 mcg Documented By: KATHIE Diphenhydramine HCl (Diphenhydramine Hcl 50 Mg/Ml Vial) 50 mg IVPUSH Q4H PRN PRN Reason: agitation Last Admin: 05/10/24 14:47 Dose: 50 mg Documented By: KATHIE Docusate Sodium (Docusate Sodium 100 Mg Capsule) 100 mg PO BID [facility] Enoxaparin Sodium (Enoxaparin Sodium 40 Mg/0.4 Ml Syringe) 40 mg SUBCUT Q24H [facility] Last Admin: 05/10/24 14:47 Dose: 40 mg Documented By: KATHIE Folic Acid (Folic Acid 1 Mg Tablet) 2 mg PO DAILY [facility] Last Admin: 05/11/24 07:44 Dose: 2 mg Documented By: KATHIE Lamotrigine (Lamotrigine 25 Mg Tablet) 50 mg PO BID [facility] Last Admin: 05/11/24 07:44 Dose: 50 mg Documented By: KATHIE Lorazepam (Lorazepam 1 Mg Tablet) 1 mg PO Q4H PRN PRN Reason: Anxiety Naloxone HCl (Naloxone Hcl 0.4 Mg/Ml Vial) 0.2 mg IVPUSH Q2M PRN PRN Reason: Excessive sedation or RR < 8 Nicotine (Nicotine 21 Mg Patch.Td24) 21 mg TRANSDERMA DAILY [facility] Last Admin: 05/11/24 07:45 Dose: Not Given Documented By: KATHIE Non-Admin Reason: Patient Refused Nystatin (Nystatin Powder 15 Gm Bottle) 1 appl TOPICAL BID [facility]; Protocol Last Admin: 05/11/24 07:47 Dose: 1 appl Documented By: KATHIE Ondansetron HCl (Ondansetron Hcl 4 Mg/2 Ml Vial) 4 mg IVPUSH Q8H PRN PRN Reason: Nausea and Vomiting Last Admin: 05/09/24 11:36 Dose: 4 mg Documented By: MICHAEL Ondansetron HCl (Ondansetron Hcl 4 Mg/2 Ml Vial) 4 mg IVPUSH Q4H PRN PRN Reason: Nausea and Vomiting Last Admin: 05/11/24 09:17 Dose: 4 mg Documented By: KATHIE Polyethylene Glycol (Polyethylene Glycol 3350 17 Gm Powd.Pack) 17 gm PO DAILY PRN PRN Reason: Constipation Quetiapine Fumarate (Quetiapine Fumarate 200 Mg Tablet) 200 mg PO BEDTIME [facility] Last Admin: 05/10/24 21:02 Dose: 200 mg Documented By: ELADIO Sodium Chloride (0.9 % Sodium Chloride Flush 3 Ml Syringe) 3 ml IVFLUSH QSHIFT [facility] Last Admin: 05/11/24 07:45 Dose: 3 ml Documented By: KATHIE Thiamine HCl (Thiamine Hcl 100 Mg Tablet) 300 mg PO DAILY [facility] Last Admin: 05/11/24 07:44 Dose: 300 mg Documented By: KATHIE Labs 05/10/24 05:14 05/11/24 06:05 Labs: Laboratory Results - last 24 hr 05/11/24 06:05 Anion Gap 9 L Estim Creat Clear Calc 129.9 Estimated GFR > 60 Random Glucose 110 Calcium 8.8 Assessment and Plan (1) Opioid use disorder: Status: Acute (2) Toxic encephalopathy: Status: Acute (3) Polysubstance abuse: Status: Acute (4) Seizure: Status: Acute Plan This is a 49-year-old gentleman with underlying history of polysubstance abuse including amphetamine, cocaine, opioids, PCP, and alcohol, also with mood disorder admitted on 04/30/2024 with polysubstance abuse to the medical floor but with acute decompensation secondary to multiple seizures requiring intubation and transfer to the intensive care unit. intubated 04/30, extubated 05/08; titrated off sedative drips, downgraded to the medical floor 05/10. Of note patient was admitted from April 20 to 04/25 for polysubstance abuse, drug overdose Acute toxic encephalopathy due to Polysubstance use/alcohol use disorder s/p ketamine, precedex and versed drips in ICU Seen by addiction Medicine-given additional dose of Suboxone Continue baseline Suboxone prn ativan continue thiamine, folic acid supplementation Seizure disorder due to substance use/withdrawal Initially treated with Keppra, Keppra discontinued in the ICU CT scan of brain negative d/w neuro - no need for EEG or ongoing antiepileptic medication Mood disorder with Suicidal ideation continued on baseline seroquel started on lamictal by ICU seen by Psychiatric - recommends inpatient psych admission continue sitter for safety Care team consulted for inpatient level of care - plan for inpatient admission Mild transaminitis Likely due to substance use Has been higher in the past Outpatient follow-up Tobacco dependence Continue nicotine replacement left arm cellulitis US from 05/01 w/ phlegmon vs abscess s/p 6 days IV vanco no fluctuance or erythema on exam DVT prophylaxis-Lovenox Quality Stroke Does the patient have a stroke diagnosis?: No VTE Prior VTE?: No VTE Risk Level:: Medical - moderate - high VTE Device Contraindication: N/A - Device Ordered VTE Drug Contraindication: N/A - Med Ordered
[2024-05-11] MEDS: Enoxaparin Sodium 40 MG/0.4 ML SYRINGE SUBCUT (15:06)
[2024-05-11 15:54] VITALS: BP 135/74; PULSE 75; RESP 17; TEMP 36.6; O2SAT 96
--- NOTE | 2024-05-11 15:57 | P.PNADD_ITS ---
Subjective Subjective Date of Service: 05/11/24 Reason For Visit: Overdose, seizure, SI Interim History: Patient seen in follow up Awake, alert, engaged in interview. reports feeling a little better than yesterday, but still not feeling like himself. He appears comfortable. No withdrawal sx noted, or reported He is tearful expressing shame and guilt that he was in active use when his mother recently. He states that he was intentionally drinking too much and placing himself in unsafe situations and attempting to get into physical altercations, and just anything else, I wanted something bad to happen to me . Review of Systems Constitutional: Reports as per HPI Mental Status Exam Mental Status Exam Patient Orientation: Person, Place, Time and Situation Level of Consciousness: Awake, Appropriate and Alert Patient Behavior: Appropriate Affect Description: Blunted and Sad Speech Pattern: Clear Hallucinations: None Judgement: Fair Diagnostics Vital Signs (24Hr): Vital Signs - 24 hr 05/10/24 19:13 05/10/24 23:47 05/11/24 03:26 Temperature 97.9 F 98.8 F 97.8 F Pulse Rate 66 73 70 Respiratory Rate 18 19 19 Blood Pressure 135/68 130/70 117/39 L Pulse Oximetry 97 94 93 Oxygen Delivery Method Room Air Room Air Room Air 05/11/24 08:00 05/11/24 11:45 05/11/24 15:54 Temperature 97.9 F 98.7 F 97.8 F Pulse Rate 66 77 75 Respiratory Rate 17 18 17 Blood Pressure 119/69 135/70 135/74 Pulse Oximetry 97 94 96 Oxygen Delivery Method Room Air Room Air Room Air BMI result Body Mass Index 26.9 Labs 05/10/24 05:14 05/11/24 06:05 Labs: Laboratory Results - last 48 hr 05/09/24 05/09/24 05/10/24 16:29 21:02 05:14 WBC 7.8 RBC 4.36 L Hgb 12.0 L Hct 36.0 L MCV 82.6 MCH 27.5 MCHC 33.3 RDW 15.0 Plt Count 406 H MPV 9.9 Immature Gran % (Auto) 0.3 Neut % (Auto) 58.6 Lymph % (Auto) 28.4 [place] % (Auto) 8.8 Eos % (Auto) 2.9 Baso % (Auto) 1.0 Lymph # (Auto) 2.2 [place] # (Auto) 0.7 Eos # (Auto) 0.2 Baso # (Auto) 0.1 Abs Immat Gran (auto) 0.02 Absolute Neuts (auto) 4.6 Absolute Nucleated RBC 0.000 Nucleated RBC % (auto) 0.0 VBG pH VBG pCO2 VBG pO2 VBG HCO3 VBG O2 Saturation VBG Base Excess Sodium 140 Potassium 3.3 Chloride 109 H Carbon Dioxide 21 L Anion Gap 13 BUN 23 H Creatinine 0.76 Estim Creat Clear Calc 121.3 Estimated GFR > 60 POC Glucose 173 H 96 Random Glucose 119 H Calcium 8.8 D Phosphorus 3.3 Magnesium 2.2 Total Bilirubin 0.3 AST 55 H ALT 72 H Alkaline Phosphatase 97 Total Protein 7.8 Albumin 3.7 Triglycerides 130 05/10/24 05/10/24 05/11/24 05:36 07:04 06:05 WBC RBC Hgb Hct MCV MCH MCHC RDW Plt Count MPV Immature Gran % (Auto) Neut % (Auto) Lymph % (Auto) [place] % (Auto) Eos % (Auto) Baso % (Auto) Lymph # (Auto) [place] # (Auto) Eos # (Auto) Baso # (Auto) Abs Immat Gran (auto) Absolute Neuts (auto) Absolute Nucleated RBC Nucleated RBC % (auto) VBG pH 7.50 H VBG pCO2 35 VBG pO2 43 VBG HCO3 27 H VBG O2 Saturation 67.0 VBG Base Excess 4.5 Sodium 140 Potassium 3.3 Chloride 108 Carbon Dioxide 26 Anion Gap 9 L BUN 15 Creatinine 0.71 Estim Creat Clear Calc 129.9 Estimated GFR > 60 POC Glucose 103 Random Glucose 110 Calcium 8.8 Phosphorus Magnesium Total Bilirubin AST ALT Alkaline Phosphatase Total Protein Albumin Triglycerides Imaging Radiology Impressions: ITS Impressions Chest X-Ray 04/30/24 09:41 IMPRESSION: Low lung volumes. No acute cardiopulmonary abnormality. Electronically signed by: Demond Williamson MD 04/30/2024 10:07 AM EDT RP Cervical Spine CT 04/30/24 11:17 IMPRESSION: No evidence of fracture or malalignment of the cervical spine. Electronically signed by: Demond Williamson MD 04/30/2024 12:32 PM EDT RP Head CT 04/30/24 11:17 IMPRESSION: No acute intracranial abnormality. Electronically signed by: Demond Williamson MD 04/30/2024 12:27 PM EDT RP Extremity Ultrasound 05/01/24 10:33 IMPRESSION: 2.9 x 2.6 x 0.8 cm phlegmon versus abscess, mid left forearm. Electronically signed by: Martin Melvin MD 05/01/2024 10:58 AM EDT RP Medications Medications Current Medications Buprenorphine/Naloxone (Buprenorphine/Naloxone 8/2 Mg Film) 1 film SUBLINGUAL BID [facility] Last Admin: 05/11/24 09:17 Dose: 1 film Cyanocobalamin (Cyanocobalamin (Vitamin B-12) 1,000 Mcg Tablet) 1,000 mcg PO DAILY [facility] Last Admin: 05/11/24 07:44 Dose: 1,000 mcg Diphenhydramine HCl (Diphenhydramine Hcl 50 Mg/Ml Vial) 50 mg IVPUSH Q4H PRN PRN Reason: agitation Last Admin: 05/10/24 14:47 Dose: 50 mg Docusate Sodium (Docusate Sodium 100 Mg Capsule) 100 mg PO BID [facility] Enoxaparin Sodium (Enoxaparin Sodium 40 Mg/0.4 Ml Syringe) 40 mg SUBCUT Q24H [facility] Last Admin: 05/11/24 15:06 Dose: 40 mg Folic Acid (Folic Acid 1 Mg Tablet) 2 mg PO DAILY [facility] Last Admin: 05/11/24 07:44 Dose: 2 mg Lamotrigine (Lamotrigine 25 Mg Tablet) 50 mg PO BID [facility] Last Admin: 05/11/24 07:44 Dose: 50 mg Lorazepam (Lorazepam 1 Mg Tablet) 1 mg PO Q6H PRN PRN Reason: Anxiety Last Admin: 05/11/24 15:06 Dose: 1 mg Naloxone HCl (Naloxone Hcl 0.4 Mg/Ml Vial) 0.2 mg IVPUSH Q2M PRN PRN Reason: Excessive sedation or RR < 8 Nicotine (Nicotine 21 Mg Patch.Td24) 21 mg TRANSDERMA DAILY [facility] Last Admin: 05/11/24 07:45 Dose: Not Given Nystatin (Nystatin Powder 15 Gm Bottle) 1 appl TOPICAL BID [facility]; Protocol Last Admin: 05/11/24 07:47 Dose: 1 appl Ondansetron HCl (Ondansetron Hcl 4 Mg/2 Ml Vial) 4 mg IVPUSH Q8H PRN PRN Reason: Nausea and Vomiting Last Admin: 05/09/24 11:36 Dose: 4 mg Ondansetron HCl (Ondansetron Hcl 4 Mg/2 Ml Vial) 4 mg IVPUSH Q4H PRN PRN Reason: Nausea and Vomiting Last Admin: 05/11/24 09:17 Dose: 4 mg Polyethylene Glycol (Polyethylene Glycol 3350 17 Gm Powd.Pack) 17 gm PO DAILY PRN PRN Reason: Constipation Quetiapine Fumarate (Quetiapine Fumarate 200 Mg Tablet) 200 mg PO BEDTIME [facility] Last Admin: 05/10/24 21:02 Dose: 200 mg Sodium Chloride (0.9 % Sodium Chloride Flush 3 Ml Syringe) 3 ml IVFLUSH QSHIFT [facility] Last Admin: 05/11/24 15:06 Dose: 3 ml Thiamine HCl (Thiamine Hcl 100 Mg Tablet) 300 mg PO DAILY [facility] Last Admin: 05/11/24 07:44 Dose: 300 mg Allergies Allergies Allergy/AdvReac Type Severity Reaction Status Date / Time No Known Allergies Allergy Verified 04/30/24 19:27 Assessment & Plan Assessment & Plan (1) Opioid use disorder: Status: Acute Code(s): F11.90 - Opioid use, unspecified, uncomplicated Assessment and Plan: * continue suboxone at current dose (2) Alcohol use disorder, moderate, dependence: Status: Acute Code(s): F10.20 - Alcohol dependence, uncomplicated Assessment and Plan: * no withdrawal sx * likely transferring to . Total time managing care of this patient today __20__ minutes.
[2024-05-11] MEDS: Nicotine Polacrilex 2 MG GUM BUCCAL ×2 (16:40→18:52)
[2024-05-11] MEDS: diphenhydrAMINE HCL 50 MG/ML VIAL IVPUSH (18:52)
[2024-05-11] MEDS: QUEtiapine Fumarate 200 MG TABLET PO (20:24)
[2024-05-11] MEDS: Docusate Sodium 100 MG CAPSULE PO (20:24)
[2024-05-11 23:05] VITALS: BP 128/63; PULSE 89; RESP 18; TEMP 36.8; O2SAT 98
[2024-05-12 05:02] VITALS: BP 122/60; PULSE 74; RESP 18; TEMP 37.2; O2SAT 92
[2024-05-12 08:00] VITALS: BP 110/54; PULSE 68; RESP 17; TEMP 36.7; O2SAT 94
[2024-05-12] MEDS: LORazepam 1 MG TABLET PO ×3 (09:52→21:57)
[2024-05-12] MEDS: Folic Acid 1 MG TABLET 2 MG PO (09:52)
[2024-05-12] MEDS: Docusate Sodium 100 MG CAPSULE PO ×2 (09:53→21:57)
[2024-05-12] MEDS: Nicotine Polacrilex 2 MG GUM BUCCAL ×2 (09:53→15:19)
[2024-05-12] MEDS: lamoTRIgine 25 MG TABLET 50 MG PO ×2 (09:53→21:57)
[2024-05-12] MEDS: Buprenorphine/Naloxone 8/2 mg FILM 1 FILM SUBLINGUAL ×2 (09:53→21:57)
[2024-05-12] MEDS: Thiamine HCL 100 MG TABLET 300 MG PO (09:53)
[2024-05-12] MEDS: Cyanocobalamin (Vitamin B-12) 1,000 MCG TABLET 1000 MCG PO (09:53)
[2024-05-12] MEDS: 0.9 % Sodium Chloride Flush 3 ML SYRINGE IVFLUSH (10:02)
[2024-05-12 11:59] VITALS: BP 131/68; PULSE 77; RESP 17; TEMP 36.6; O2SAT 94
[2024-05-12] MEDS: diphenhydrAMINE HCL 50 MG/ML VIAL IVPUSH ×2 (12:17→19:13)
--- NOTE | 2024-05-12 15:08 | HO.PM.IMPN ---
Subjective Subjective Date of Service: 05/12/24 Interval History: Seen and examined this morning Follow-up for polysubstance use, withdrawal requiring ICU level of care No overnight events, awaiting inpatient psychiatric bed Review of Systems Review of Systems: Yes all other systems are reviewed and are negative Constitutional Constitutional: Denies chills and Denies fever(s) Gastrointestinal Gastrointestinal: Denies abdominal pain, Denies diarrhea and Reports nausea Physical Exam Vital Signs: Vital Signs: Last Vital Signs Temp 97.8 F 05/12/24 11:59 Pulse 77 05/12/24 11:59 Resp 17 05/12/24 11:59 BP 131/68 05/12/24 11:59 Pulse Ox 94 05/12/24 11:59 O2 Del Method Room Air 05/12/24 11:59 O2 Flow Rate 2 05/09/24 09:00 FiO2 30 05/08/24 09:52 BMI result Body Mass Index 26.9 Const: General: cooperative, comfortable, no acute distress, alert and awake Nutritional Appearance: average body habitus Orientation/consciousness: patient oriented x3 Resp: Effort & Inspection: normal respiratory effort, able to speak in complete sentences, no respiratory distress and no use of accessory muscles Cardio: Rate: regular rate GI: Inspection: No distended Palpation (GI): Soft to palpation Skin: Other: small lump above wrist left arm, no erythema swelling, fluctuance or open wound; does not appear infected Neuro: General: patient oriented x3, moves all extremities and CN's II-XI intact bilaterally Extrem: General: Yes no pedal edema Objective Data Active Medications Buprenorphine/Naloxone (Buprenorphine/Naloxone 8/2 Mg Film) 1 film SUBLINGUAL BID [facility] Last Admin: 05/12/24 09:53 Dose: 1 film Documented By: PAMELA Cyanocobalamin (Cyanocobalamin (Vitamin B-12) 1,000 Mcg Tablet) 1,000 mcg PO DAILY [facility] Last Admin: 05/12/24 09:53 Dose: 1,000 mcg Documented By: PAMELA Diphenhydramine HCl (Diphenhydramine Hcl 50 Mg/Ml Vial) 50 mg IVPUSH Q4H PRN PRN Reason: agitation Last Admin: 05/12/24 12:17 Dose: 50 mg Documented By: PAMELA Docusate Sodium (Docusate Sodium 100 Mg Capsule) 100 mg PO BID [facility] Last Admin: 05/12/24 09:53 Dose: 100 mg Documented By: PAMELA Enoxaparin Sodium (Enoxaparin Sodium 40 Mg/0.4 Ml Syringe) 40 mg SUBCUT Q24H [facility] Last Admin: 05/11/24 15:06 Dose: 40 mg Documented By: KATHIE Folic Acid (Folic Acid 1 Mg Tablet) 2 mg PO DAILY [facility] Last Admin: 05/12/24 09:52 Dose: 2 mg Documented By: PAMELA Lamotrigine (Lamotrigine 25 Mg Tablet) 50 mg PO BID [facility] Last Admin: 05/12/24 09:53 Dose: 50 mg Documented By: PAMELA Lorazepam (Lorazepam 1 Mg Tablet) 1 mg PO Q6H PRN PRN Reason: Anxiety Last Admin: 05/12/24 09:52 Dose: 1 mg Documented By: PAMELA Multi-Ingred Medicated Throat [place] (Throat [place], Medicated 177 Ml Bottle) 1 spray MUCOUS MEM Q2H PRN PRN Reason: Sore Throat Naloxone HCl (Naloxone Hcl 0.4 Mg/Ml Vial) 0.2 mg IVPUSH Q2M PRN PRN Reason: Excessive sedation or RR < 8 Nicotine (Nicotine 21 Mg Patch.Td24) 21 mg TRANSDERMA DAILY [facility] Last Admin: 05/12/24 10:03 Dose: Not Given Documented By: PAMELA Non-Admin Reason: Patient Refused Nicotine Polacrilex (Nicotine Polacrilex 2 Mg Gum) 2 mg BUCCAL Q2H PRN PRN Reason: Nicotine Cravings Last Admin: 05/12/24 09:53 Dose: 2 mg Documented By: PAMELA Nystatin (Nystatin Powder 15 Gm Bottle) 1 appl TOPICAL BID [facility]; Protocol Last Admin: 05/12/24 10:03 Dose: Not Given Documented By: PAMELA Non-Admin Reason: Previously Administered Ondansetron HCl (Ondansetron Hcl 4 Mg/2 Ml Vial) 4 mg IVPUSH Q8H PRN PRN Reason: Nausea and Vomiting Last Admin: 05/09/24 11:36 Dose: 4 mg Documented By: MICHAEL Ondansetron HCl (Ondansetron Hcl 4 Mg/2 Ml Vial) 4 mg IVPUSH Q4H PRN PRN Reason: Nausea and Vomiting Last Admin: 05/11/24 09:17 Dose: 4 mg Documented By: KATHIE Polyethylene Glycol (Polyethylene Glycol 3350 17 Gm Powd.Pack) 17 gm PO DAILY PRN PRN Reason: Constipation Quetiapine Fumarate (Quetiapine Fumarate 200 Mg Tablet) 200 mg PO BEDTIME [facility] Last Admin: 05/11/24 20:24 Dose: 200 mg Documented By: ELADIO Sodium Chloride (0.9 % Sodium Chloride Flush 3 Ml Syringe) 3 ml IVFLUSH QSHIFT [facility] Last Admin: 05/12/24 10:02 Dose: 3 ml Documented By: PAMELA Thiamine HCl (Thiamine Hcl 100 Mg Tablet) 300 mg PO DAILY [facility] Last Admin: 05/12/24 09:53 Dose: 300 mg Documented By: PAMELA Labs 05/10/24 05:14 05/11/24 06:05 Assessment and Plan (1) Polysubstance abuse: Status: Acute Plan This is a 49-year-old gentleman with underlying history of polysubstance abuse including amphetamine, cocaine, opioids, PCP, and alcohol, also with mood disorder admitted on 04/30/2024 with polysubstance abuse to the medical floor but with acute decompensation secondary to multiple seizures requiring intubation and transfer to the intensive care unit. intubated 04/30, extubated 05/08; titrated off sedative drips, downgraded to the medical floor 05/10. Of note patient was admitted from April 20 to 04/25 for polysubstance abuse, drug overdose Acute toxic encephalopathy due to Polysubstance use/alcohol use disorder s/p ketamine, precedex and versed drips in ICU. weaned off drips and downgraded to medical floor 05/10 Seen by addiction Medicine Continue baseline Suboxone wean prn ativan continue thiamine, folic acid supplementation Seizure disorder due to substance use/withdrawal Initially treated with Keppra, Keppra discontinued in the ICU CT scan of brain negative d/w neuro - no need for EEG or ongoing antiepileptic medication Mood disorder with Suicidal ideation continued on baseline seroquel started on lamictal by ICU seen by Psychiatric - recommends inpatient psych admission continue sitter for safety Care team consulted for inpatient level of care - plan for inpatient admission Mild transaminitis Likely due to substance use Has been higher in the past Outpatient follow-up Tobacco dependence Continue nicotine replacement left arm cellulitis US from 05/01 w/ phlegmon vs abscess s/p 6 days IV vanco no fluctuance or erythema on exam DVT prophylaxis-Lovenox dispo - awaiting inpatient psychiatric bed Quality Stroke Does the patient have a stroke diagnosis?: No VTE Prior VTE?: No VTE Risk Level:: Medical - moderate - high VTE Device Contraindication: N/A - Device Ordered VTE Drug Contraindication: N/A - Med Ordered
[2024-05-12] MEDS: Enoxaparin Sodium 40 MG/0.4 ML SYRINGE SUBCUT (15:20)
[2024-05-12 15:58] VITALS: BP 117/58; PULSE 86; RESP 18; TEMP 36.3; O2SAT 96
--- NOTE | 2024-05-12 18:44 | PC.NURSE ---
Patient alert and oriented, very anxious, called for PRN medications for anxiety throughout the day. Slept on and off, sitter in place for additional monitoring, no SI reported this shift. Patient continues to c/o of poor PO intake, did have a BM yesterday.
[2024-05-12 19:56] VITALS: BP 117/58; PULSE 77; RESP 16; TEMP 37.2; O2SAT 94
[2024-05-12] MEDS: QUEtiapine Fumarate 200 MG TABLET PO (21:57)
[2024-05-12 23:00] VITALS: BP 127/62; PULSE 76; RESP 18; TEMP 37.1; O2SAT 93
[2024-05-13 04:00] VITALS: BP 120/66; PULSE 79; RESP 18; TEMP 36.7; O2SAT 95
[2024-05-13 07:44] VITALS: BP 123/56; PULSE 77; RESP 18; TEMP 36.6; O2SAT 94
[2024-05-13] MEDS: lamoTRIgine 25 MG TABLET 50 MG PO ×2 (09:42→20:44)
[2024-05-13] MEDS: Thiamine HCL 100 MG TABLET 300 MG PO (09:42)
[2024-05-13] MEDS: Buprenorphine/Naloxone 8/2 mg FILM 1 FILM SUBLINGUAL ×2 (09:43→20:44)
[2024-05-13] MEDS: Cyanocobalamin (Vitamin B-12) 1,000 MCG TABLET 1000 MCG PO (09:43)
[2024-05-13] MEDS: Folic Acid 1 MG TABLET 2 MG PO (09:43)
[2024-05-13] MEDS: Docusate Sodium 100 MG CAPSULE PO ×2 (09:43→20:44)
[2024-05-13] MEDS: Nicotine Polacrilex 2 MG GUM BUCCAL ×4 (09:44→18:54)
[2024-05-13] MEDS: LORazepam 1 MG TABLET PO ×2 (09:45→15:48)
[2024-05-13] MEDS: 0.9 % Sodium Chloride Flush 3 ML SYRINGE IVFLUSH ×2 (09:49→16:22)
--- NOTE | 2024-05-13 11:12 | HO.PM.IMPN ---
Subjective Subjective Date of Service: 05/13/24 Interval History: seen and examined this morning follow up for polysubstance use No overnight events Awaiting inpatient psychiatric bed Review of Systems Review of Systems: Yes all other systems are reviewed and are negative Constitutional Constitutional: Denies chills and Denies fever(s) Physical Exam Vital Signs: Vital Signs: Last Vital Signs Temp 97.9 F 05/13/24 07:44 Pulse 77 05/13/24 07:44 Resp 18 05/13/24 07:44 BP 123/56 L 05/13/24 07:44 Pulse Ox 94 05/13/24 07:44 O2 Del Method Room Air 05/13/24 07:44 O2 Flow Rate 2 05/09/24 09:00 FiO2 30 05/08/24 09:52 BMI result Body Mass Index 26.9 Const: General: cooperative, comfortable, no acute distress, alert and awake Nutritional Appearance: average body habitus Orientation/consciousness: patient oriented x3 Resp: Effort & Inspection: normal respiratory effort, able to speak in complete sentences, no respiratory distress and no use of accessory muscles Cardio: Rate: regular rate GI: Inspection: No distended Palpation (GI): Soft to palpation Skin: Other: small lump above wrist left arm, no erythema swelling, fluctuance or open wound; does not appear infected Neuro: General: patient oriented x3, moves all extremities and CN's II-XI intact bilaterally Extrem: General: Yes no pedal edema Objective Data Active Medications Buprenorphine/Naloxone (Buprenorphine/Naloxone 8/2 Mg Film) 1 film SUBLINGUAL BID [facility] Last Admin: 05/13/24 09:43 Dose: 1 film Documented By: ANGEL Cyanocobalamin (Cyanocobalamin (Vitamin B-12) 1,000 Mcg Tablet) 1,000 mcg PO DAILY [facility] Last Admin: 05/13/24 09:43 Dose: 1,000 mcg Documented By: ANGEL Diphenhydramine HCl (Diphenhydramine Hcl 50 Mg/Ml Vial) 50 mg IVPUSH Q4H PRN PRN Reason: agitation Last Admin: 05/12/24 19:13 Dose: 50 mg Documented By: DOBROB Docusate Sodium (Docusate Sodium 100 Mg Capsule) 100 mg PO BID [facility] Last Admin: 05/13/24 09:43 Dose: 100 mg Documented By: ANGEL Enoxaparin Sodium (Enoxaparin Sodium 40 Mg/0.4 Ml Syringe) 40 mg SUBCUT Q24H [facility] Last Admin: 05/12/24 15:20 Dose: 40 mg Documented By: BROTwila Folic Acid (Folic Acid 1 Mg Tablet) 2 mg PO DAILY [facility] Last Admin: 05/13/24 09:43 Dose: 2 mg Documented By: ANGEL Lamotrigine (Lamotrigine 25 Mg Tablet) 50 mg PO BID [facility] Last Admin: 05/13/24 09:42 Dose: 50 mg Documented By: ANGEL Lorazepam (Lorazepam 1 Mg Tablet) 1 mg PO Q6H PRN PRN Reason: Anxiety Last Admin: 05/13/24 09:45 Dose: 1 mg Documented By: ANGEL Multi-Ingred Medicated Throat [place] (Throat [place], Medicated 177 Ml Bottle) 1 spray MUCOUS MEM Q2H PRN PRN Reason: Sore Throat Naloxone HCl (Naloxone Hcl 0.4 Mg/Ml Vial) 0.2 mg IVPUSH Q2M PRN PRN Reason: Excessive sedation or RR < 8 Nicotine (Nicotine 21 Mg Patch.Td24) 21 mg TRANSDERMA DAILY [facility] Last Admin: 05/13/24 09:49 Dose: Not Given Documented By: ANGEL Non-Admin Reason: Patient Refused Nicotine Polacrilex (Nicotine Polacrilex 2 Mg Gum) 2 mg BUCCAL Q2H PRN PRN Reason: Nicotine Cravings Last Admin: 05/13/24 09:44 Dose: 2 mg Documented By: ANGEL Nystatin (Nystatin Powder 15 Gm Bottle) 1 appl TOPICAL BID [facility]; Protocol Last Admin: 05/13/24 09:50 Dose: Not Given Documented By: ANGEL Non-Admin Reason: Previously Administered Ondansetron HCl (Ondansetron Hcl 4 Mg/2 Ml Vial) 4 mg IVPUSH Q8H PRN PRN Reason: Nausea and Vomiting Last Admin: 05/09/24 11:36 Dose: 4 mg Documented By: MICHAEL Ondansetron HCl (Ondansetron Hcl 4 Mg/2 Ml Vial) 4 mg IVPUSH Q4H PRN PRN Reason: Nausea and Vomiting Last Admin: 05/11/24 09:17 Dose: 4 mg Documented By: KATHIE Polyethylene Glycol (Polyethylene Glycol 3350 17 Gm Powd.Pack) 17 gm PO DAILY PRN PRN Reason: Constipation Quetiapine Fumarate (Quetiapine Fumarate 200 Mg Tablet) 200 mg PO BEDTIME [facility] Last Admin: 05/12/24 21:57 Dose: 200 mg Documented By: TRE-JOZEB Sodium Chloride (0.9 % Sodium Chloride Flush 3 Ml Syringe) 3 ml IVFLUSH QSHIFT [facility] Last Admin: 05/13/24 09:49 Dose: 3 ml Documented By: ANGEL Thiamine HCl (Thiamine Hcl 100 Mg Tablet) 300 mg PO DAILY [facility] Last Admin: 05/13/24 09:42 Dose: 300 mg Documented By: ANGEL Labs 05/10/24 05:14 05/11/24 06:05 Assessment and Plan (1) Polysubstance abuse: Status: Acute Plan This is a 49-year-old gentleman with underlying history of polysubstance abuse including amphetamine, cocaine, opioids, PCP, and alcohol, also with mood disorder admitted on 04/30/2024 with polysubstance abuse to the medical floor but with acute decompensation secondary to multiple seizures requiring intubation and transfer to the intensive care unit. intubated 04/30, extubated 05/08; titrated off sedative drips, downgraded to the medical floor 05/10. Of note patient was admitted from April 20 to 04/25 for polysubstance abuse, drug overdose Acute toxic encephalopathy due to Polysubstance use/alcohol use disorder s/p ketamine, precedex and versed drips in ICU. weaned off drips and downgraded to medical floor 05/10 Seen by addiction Medicine Continue baseline Suboxone wean prn ativan continue thiamine, folic acid supplementation Seizure disorder due to substance use/withdrawal Initially treated with Keppra, Keppra discontinued in the ICU CT scan of brain negative d/w neuro - no need for EEG or ongoing antiepileptic medication Mood disorder with Suicidal ideation continued on baseline seroquel started on lamictal by ICU seen by Psychiatric - recommends inpatient psych admission continue sitter for safety Care team consulted for inpatient level of care - plan for inpatient admission Mild transaminitis Likely due to substance use Has been higher in the past Outpatient follow-up Tobacco dependence Continue nicotine replacement left arm cellulitis US from 05/01 w/ phlegmon vs abscess s/p 6 days IV vanco no fluctuance or erythema on exam DVT prophylaxis-Lovenox dispo - awaiting inpatient psychiatric bed Quality Stroke Does the patient have a stroke diagnosis?: No VTE Prior VTE?: No VTE Risk Level:: Medical - moderate - high VTE Device Contraindication: N/A - Device Ordered VTE Drug Contraindication: N/A - Med Ordered
--- NOTE | 2024-05-13 11:13 | PM.DS ---
DS: Providers Provider Date of admission: 04/30/24 14:51 Primary care physician: Jennifer Ramirez MD Consults: 04/30/24 15:56 Consult to Psychiatry Routine Consulting Provider: [facility] [place] Psych Covering Reason for consultation: depression ,SI 05/09/24 14:11 Consult to Psychiatry Routine Consulting Provider: [facility] [place] Psych Covering Reason for consultation: Psychoactive medication management, agitation, SI Has provider been notified: Yes 05/10/24 11:14 Consult to Neurology Routine Consulting Provider: [facility] Reason for consultation: seizures ?2/2 substance use; ?need to continue keppra Has provider been notified: No 05/10/24 12:07 Addiction Medicine Provider Routine Consulting Provider: Addiction Covering Reason for consultation: Polysubstance use Has provider been notified: No 05/11/24 10:16 Inpt CARE Team Crisis Consult Routine Comment: Reason for consultation: LOC? DS: Diagnosis Discharge Diagnosis (1) Polysubstance abuse: Status: Acute DS: Summary Hospital Course Hospital Course: From H&P on the day of admission 49-year-old male with history of polysubstance use disorder, alcohol use disorder, mood disorder who presented via EMS after being found at [facility] back and forth, reporting taking PCP. Patient has been responsive to painful stimuli only however, he is hemodynamically stable but not answering any questions. He apparently was noted to have a seizure while in the ED. He was discharged from [facility] [place] on 04/25 and treated for similar symptoms. He reported SI and stated that he used drugs as an overdose attempt. Labs all wnl, VS stable placed on oxymask 2 liters. CXR, head CT and cervical spine CT all negative for acute abnormality. Patient received Ativan and IV fluids in the ED, admit for treatment of overdose and seizure. Admitted on 04/30/2024 with polysubstance abuse to the medical floor but with acute decompensation secondary to multiple seizures requiring intubation and transfer to the intensive care unit. intubated 04/30, extubated 05/08; titrated off sedative drips, downgraded to the medical floor 05/10. Of note patient was admitted from April 20 to 04/25 for polysubstance abuse, drug overdose as well. Acute toxic encephalopathy due to Polysubstance use/alcohol use disorder s/p ketamine, precedex and versed drips in ICU. weaned off drips and downgraded to medical floor 05/10. Continue on baseline Suboxone. continue thiamine, folic acid supplementation. Mental status back to baseline. Seizure disorder due to substance use/withdrawal. Initially treated with Keppra, Keppra discontinued in the ICU. CT scan of brain negative. d/w neuro - no need for EEG or ongoing antiepileptic medication Mood disorder with Suicidal ideation continued on baseline seroquel. started on lamictal by ICU seen by Psychiatric - recommends inpatient psych admission. continue sitter for safety. Care team consulted for inpatient level of care - plan for inpatient admission Mild transaminitis Likely due to substance use. Has been higher in the past Tobacco dependence Continue nicotine replacement left arm cellulitis. resolved US from 05/01 w/ phlegmon vs abscess. s/p 6 days IV vanco. no fluctuance or erythema on exam Quality: Safe Use of Opioids Does Pt have an Active Cancer Diagnosis on the Problem List?: No Quality: Stroke Does the patient have a stroke diagnosis?: No Physical Exam Vital Signs: Vital Signs: Last Vital Signs Temp 97.9 F 05/13/24 07:44 Pulse 77 05/13/24 07:44 Resp 18 05/13/24 07:44 BP 123/56 L 05/13/24 07:44 Pulse Ox 94 05/13/24 07:44 O2 Del Method Room Air 05/13/24 07:44 O2 Flow Rate 2 05/09/24 09:00 FiO2 30 05/08/24 09:52 BMI result Body Mass Index 26.9 DS: Data Data Completed and Pending Completed studies during hospitalization [Text1]: Procedures Detoxification Services for Substance Abuse Treatment (04/20/24) Discharge Plan Discharge Patient Disposition: Xfer Psychiatric Hosp Discharge Diagnosis: Polysubstance use disorder/withdrawal Seizure due to above Left arm cellulitis Depression with Suicidal ideation Anxiety Referrals: Physician,Unknown J [Physician] - 1 Week Discharge Medications: New lorazepam 1 mg Tablet 1 mg PO Q6H PRN (Reason: Anxiety) Qty: 1 0RF cyanocobalamin (vitamin B-12) [Vitamin B-12] 1,000 mcg Tablet 1,000 mcg PO DAILY Qty: 1 0RF thiamine mononitrate (vit B1) 100 mg Tablet 300 mg PO DAILY Qty: 1 0RF folic acid 1 mg Tablet 2 mg PO DAILY Qty: 1 0RF nicotine 21 mg/24 hr Patch 24 Hour 21 mg transdermal DAILY Qty: 7 0RF docusate sodium 100 mg Capsule 100 mg PO BID Qty: 1 0RF polyethylene glycol 3350 17 gram Powder In Packet 17 g PO DAILY PRN (Reason: Constipation) Qty: 14 0RF nicotine (polacrilex) 2 mg Gum 2 mg buccal Q2H PRN (Reason: Nicotine Cravings) Qty: 20 0RF Continued quetiapine 200 mg tablet 200 mg PO BEDTIME escitalopram oxalate 20 mg tablet 20 mg PO DAILY buprenorphine-naloxone [Suboxone] 8-2 mg film 1 film sublingual BID Discontinued dextroamphetamine-amphetamine 20 mg tablet 1 tab PO BID@0900,1400 lisdexamfetamine [Vyvanse] 60 mg capsule 60 mg PO DAILY No Action propranolol 20 mg tablet 20 mg PO BID Activity on Discharge: As tolerated Stand Alone Forms: Patient Portal Discharge page Print Language: Setswana Care Plan Goals: See below Health Concerns: Polysubstance use/withdrawal Withdrawal seizure Left arm cellulitis-resolved Depression with suicidal ideation anxiety Plan of Treatment: Transfer to inpatient psychiatric unit for further care Assessment: See discharge summary
[2024-05-13 11:54] VITALS: BP 120/65; PULSE 69; RESP 17; TEMP 36.7; O2SAT 94
[2024-05-13] MEDS: diphenhydrAMINE HCL 50 MG/ML VIAL IVPUSH ×3 (11:57→20:44)
[2024-05-13] MEDS: Enoxaparin Sodium 40 MG/0.4 ML SYRINGE SUBCUT (15:48)
[2024-05-13 16:00] VITALS: BP 122/70; PULSE 85; RESP 18; TEMP 37; O2SAT 97
[2024-05-13 20:00] VITALS: BP 123/66; PULSE 90; RESP 18; TEMP 37.1; O2SAT 98
[2024-05-13] MEDS: QUEtiapine Fumarate 200 MG TABLET PO (20:44)
[2024-05-13] MEDS: ondansetron HCL 4 MG/2 ML VIAL IVPUSH (20:44)
[2024-05-14] VITALS: BP 105/56; PULSE 84; RESP 17; TEMP 36.6; O2SAT 92
[2024-05-14 04:00] VITALS: BP 93/51; PULSE 71; RESP 17; TEMP 36.2; O2SAT 94
[2024-05-14 07:54] VITALS: BP 117/55; PULSE 65; RESP 18; TEMP 36.3; O2SAT 96
[2024-05-14] MEDS: Buprenorphine/Naloxone 8/2 mg FILM 1 FILM SUBLINGUAL (08:26)
[2024-05-14] MEDS: 0.9 % Sodium Chloride Flush 3 ML SYRINGE IVFLUSH (08:26)
[2024-05-14] MEDS: Thiamine HCL 100 MG TABLET 300 MG PO (08:26)
[2024-05-14] MEDS: lamoTRIgine 25 MG TABLET 50 MG PO (08:27)
[2024-05-14] MEDS: Folic Acid 1 MG TABLET 2 MG PO (08:27)
[2024-05-14] MEDS: Docusate Sodium 100 MG CAPSULE PO (08:27)
[2024-05-14] MEDS: Cyanocobalamin (Vitamin B-12) 1,000 MCG TABLET 1000 MCG PO (08:27)
[2024-05-14] MEDS: Nystatin Powder 15 GM BOTTLE 1 APPL TOPICAL (08:29)
[2024-05-14] MEDS: LORazepam 1 MG TABLET PO (08:32)
--- NOTE | 2024-05-14 10:59 | P.DS_ITS ---
DS: Providers Provider Date of Service: 05/14/24 Date of admission: 04/30/24 14:51 Date of discharge: 05/14/24 Primary care physician: Jennifer Ramirez MD Consults: 04/30/24 15:56 Consult to Psychiatry Routine Consulting Provider: [facility] Psych Covering Reason for consultation: depression ,SI 05/09/24 14:11 Consult to Psychiatry Routine Consulting Provider: [facility] Psych Covering Reason for consultation: Psychoactive medication management, agitation, SI Has provider been notified: Yes 05/10/24 11:14 Consult to Neurology Routine Consulting Provider: [facility] Reason for consultation: seizures ?2/2 substance use; ?need to continue keppra Has provider been notified: No 05/10/24 12:07 Addiction Medicine Provider Routine Consulting Provider: Addiction Covering Reason for consultation: Polysubstance use Has provider been notified: No 05/11/24 10:16 Inpt CARE Team Crisis Consult Routine Comment: Reason for consultation: LOC? DS: Diagnosis Discharge Diagnosis (1) Polysubstance abuse: Status: Acute DS: Summary Hospital Course Hospital Course: From H&P on the day of admission 49-year-old male with history of polysubstance use disorder, alcohol use disorder, mood disorder who presented via EMS after being found at [facility] back and forth, reporting taking PCP. Patient has been responsive to painful stimuli only however, he is hemodynamically stable but not answering any questions. He apparently was noted to have a seizure while in the ED. He was discharged from [facility] on 04/25 and treated for similar symptoms. He reported SI and stated that he used drugs as an overdose attempt. Labs all wnl, VS stable placed on oxymask 2 liters. CXR, head CT and cervical spine CT all negative for acute abnormality. Patient received Ativan and IV fluids in the ED, admit for treatment of overdose and seizure. Admitted on 04/30/2024 with polysubstance abuse to the medical floor but with acute decompensation secondary to multiple seizures requiring intubation and transfer to the intensive care unit. intubated 04/30, extubated 05/08; titrated off sedative drips, downgraded to the medical floor 05/10. Of note patient was admitted from April 20 to 04/25 for polysubstance abuse, drug overdose as well. Acute toxic encephalopathy due to Polysubstance use/alcohol use disorder s/p ketamine, precedex and versed drips in ICU. weaned off drips and downgraded to medical floor 05/10. Continue on baseline Suboxone. continue thiamine, folic acid supplementation. Mental status back to baseline. Seizure disorder due to substance use/withdrawal. Initially treated with Keppra, Keppra discontinued in the ICU. CT scan of brain negative. d/w neuro - no need for EEG or ongoing antiepileptic medication Mood disorder with Suicidal ideation continued on baseline seroquel. started on lamictal by ICU seen by Psychiatric - recommends inpatient psych admission. continue sitter for safety. Care team consulted for inpatient level of care - plan for inpatient admission Mild transaminitis Likely due to substance use. Has been higher in the past Tobacco dependence Continue nicotine replacement left arm cellulitis. resolved US from 05/01 w/ phlegmon vs abscess. s/p 6 days IV vanco. no fluctuance or erythema on exam Time Attestation Discharge Coordination Time (in mins): 40 Quality: Safe Use of Opioids Does Pt have an Active Cancer Diagnosis on the Problem List?: No Quality: Stroke Does the patient have a stroke diagnosis?: No Physical Exam Vital Signs: Vital Signs: Last Vital Signs Temp 97.4 F 05/14/24 07:54 Pulse 65 05/14/24 07:54 Resp 18 05/14/24 07:54 BP 117/55 L 05/14/24 07:54 Pulse Ox 96 05/14/24 07:54 O2 Del Method Room Air 05/14/24 07:54 O2 Flow Rate 2 05/09/24 09:00 FiO2 30 05/08/24 09:52 BMI result Body Mass Index 26.9 Appearing in no acute distress head is normocephalic atraumatic eyes pupils are PERRLA sclera is anicteric mouth throat mucous membranes are intact and moist neck is supple no lymphadenopathy, no JVD noted lung sounds are clear to auscultation heart regular rate rhythm, clear S1, S2 positive bowel sounds, abdomen is soft, nontender neuro patient is alert x3, no focal deficits DS: Data Data Completed and Pending Completed studies during hospitalization [Text1]: Procedures Detoxification Services for Substance Abuse Treatment (04/20/24) Discharge Plan Discharge Anticipated Discharge Date/Time: 05/14/24 10:56 Patient Disposition: Xfer Psychiatric Hosp Discharge Diagnosis: Polysubstance use disorder/withdrawal Seizure due to above Left arm cellulitis Depression with Suicidal ideation Anxiety Discharge Medications: New polyethylene glycol 3350 17 gram Powder In Packet 17 g PO DAILY PRN (Reason: Constipation) Qty: 14 0RF nicotine (polacrilex) 2 mg Gum 2 mg buccal Q2H PRN (Reason: Nicotine Cravings) Qty: 20 0RF cyanocobalamin (vitamin B-12) [Vitamin B-12] 1,000 mcg Tablet 1,000 mcg PO DAILY Qty: 1 0RF nicotine 21 mg/24 hr Patch 24 Hour 21 mg transdermal DAILY Qty: 7 0RF docusate sodium 100 mg Capsule 100 mg PO BID Qty: 1 0RF folic acid 1 mg Tablet 2 mg PO DAILY Qty: 1 0RF lorazepam 1 mg Tablet 1 mg PO Q6H PRN (Reason: Anxiety) Qty: 1 0RF thiamine mononitrate (vit B1) 100 mg Tablet 300 mg PO DAILY Qty: 1 0RF lamotrigine 25 mg Tablet 50 mg PO BID Qty: 120 0RF Continued quetiapine 200 mg tablet 200 mg PO BEDTIME buprenorphine-naloxone [Suboxone] 8-2 mg film 1 film sublingual BID Discontinued dextroamphetamine-amphetamine 20 mg tablet 1 tab PO BID@0900,1400 propranolol 20 mg tablet 20 mg PO BID escitalopram oxalate 20 mg tablet 20 mg PO DAILY lisdexamfetamine [Vyvanse] 60 mg capsule 60 mg PO DAILY Discharge Orders: Discharge Order (Routine); Ordered 05/14/24 Ordered By: Aylin Espinoza Diet: Advance to usual diet Activity on Discharge: As tolerated Stand Alone Forms: Patient Portal Discharge page Print Language: Dutch Care Plan Goals: See below Health Concerns: Polysubstance use/withdrawal Withdrawal seizure Left arm cellulitis-resolved Depression with suicidal ideation anxiety Plan of Treatment: Transfer to inpatient psychiatric unit for further care Assessment: See discharge summary
--- NOTE | 2024-05-14 11:11 | MHC.CM.PN ---
Pt has been medically cleared, he will transfer to psych unit for treatment there.
[2024-05-14 11:24] VITALS: BP 117/53; PULSE 76; RESP 20; TEMP 37.3; O2SAT 95
[2024-05-14] MEDS: diphenhydrAMINE HCL 50 MG/ML VIAL IVPUSH (11:42)
[2024-05-14] MEDS: Nicotine Polacrilex 2 MG GUM BUCCAL (12:02)
== END 2024-05-14 12:23 | DRG 817 ==
LOC: HO.ED 14:36 → HO.EDOVER 14:52 → HO.IMC 20:25 → HO.ICU 23:19 → HO.IMC 05-10 13:10
PROVIDERS: Internal Medicine Critical Care Medicine; Internal Medicine Pulmonary Disease; Nurse Practitioner Family; Physician Assistant; Registered Nurse Emergency; Admitting Provider Nurse Practitioner Acute Care; Emergency Provider Student in an Organized Health Care Education/Training Program; PCP Internal Medicine; Visit Provider Nurse Practitioner Acute Care
DX: T50.912A Poisoning by multiple unspecified drugs, medicaments and biological substances, intentional self-harm, initial encounter (principal); G92.8 Other toxic encephalopathy; F33.2 Major depressive disorder, recurrent severe without psychotic features; R56.9 Unspecified convulsions; F17.210 Nicotine dependence, cigarettes, uncomplicated; F10.139 Alcohol abuse with withdrawal, unspecified; I95.2 Hypotension due to drugs; F14.20 Cocaine dependence, uncomplicated; T42.75XA Adverse effect of unspecified antiepileptic and sedative-hypnotic drugs, initial encounter; F19.10 Other psychoactive substance abuse, uncomplicated; F16.10 Hallucinogen abuse, uncomplicated; F15.10 Other stimulant abuse, uncomplicated; F11.20 Opioid dependence, uncomplicated; L03.114 Cellulitis of left upper limb; Z71.6 Tobacco abuse counseling; Z79.899 Other long term (current) drug therapy
CPT/HCPCS: 36415; 70450; 71045; 72125; 76882; 80048; 80053; 80143; 80179; 80202; 80307; 81001; 82040; 82140; 82550; 82803; 82947; 83605; 83735; 84100; 84478; 85025; 87040; 93005; 94002; 94003; 94799; 99285; J0613; J1200; J1630; J1650; J1940; J1953; J2060; J2250; J2251; J2359; J2405; J2470; J2560; J2704; J3010; J3370; J3371; J3411; J3480; J7120; P9047; S9485

== ENCOUNTER → 2024-04-30 09:41 | Outpatient (BNV) | payer MEDICAID, SELFPAY | PROVIDERS: Emergency Provider Student in an Organized Health Care Education/Training Program; Visit Provider Radiology Diagnostic Radiology | DX: R41.82 Altered mental status, unspecified (principal) | CPT/HCPCS: 70450; 71045; 72125 ==

== ENCOUNTER 2024-04-30 14:51 | Outpatient (BNV) | payer MEDICAID, SELFPAY | END 2024-05-01 01:00 | PROVIDERS: Admitting Provider Nurse Practitioner Acute Care; Emergency Provider Student in an Organized Health Care Education/Training Program; Visit Provider Radiology Diagnostic Radiology | DX: Z45.02 Encounter for adjustment and management of automatic implantable cardiac defibrillator (principal); L02.414 Cutaneous abscess of left upper limb | CPT/HCPCS: 71045; 76882 ==

== ENCOUNTER 2024-04-30 14:51 | Outpatient (BNV) | payer MEDICAID, SELFPAY | END 2024-05-07 19:48 | PROVIDERS: Admitting Provider Nurse Practitioner Acute Care; Emergency Provider Student in an Organized Health Care Education/Training Program; PCP Internal Medicine; Visit Provider Internal Medicine Cardiovascular Disease | DX: R94.31 Abnormal electrocardiogram [ECG] [EKG] (principal); Z13.6 Encounter for screening for cardiovascular disorders | CPT/HCPCS: 93010 ==

== ENCOUNTER → 2024-04-30 14:51 | Outpatient (BNV) | payer MEDICAID, SELFPAY | PROVIDERS: Admitting Provider Nurse Practitioner Acute Care; Emergency Provider Student in an Organized Health Care Education/Training Program; Visit Provider Internal Medicine Pulmonary Disease | DX: R56.9 Unspecified convulsions (principal); F19.10 Other psychoactive substance abuse, uncomplicated; F39 Unspecified mood [affective] disorder | CPT/HCPCS: 99291 ==

== ENCOUNTER → 2024-04-30 14:51 | Outpatient (BNV) | payer MEDICAID, SELFPAY | PROVIDERS: Admitting Provider Nurse Practitioner Acute Care; Emergency Provider Student in an Organized Health Care Education/Training Program; PCP Internal Medicine; Visit Provider Nurse Practitioner Psychiatric/Mental Health | DX: F11.90 Opioid use, unspecified, uncomplicated (principal); F10.20 Alcohol dependence, uncomplicated | CPT/HCPCS: 99231 ==

== ENCOUNTER → 2024-04-30 14:51 | Outpatient (BNV) | payer OTHER, SELFPAY | PROVIDERS: Admitting Provider Nurse Practitioner Acute Care; Emergency Provider Student in an Organized Health Care Education/Training Program; PCP Internal Medicine; Visit Provider Social Worker | DX: F33.2 Major depressive disorder, recurrent severe without psychotic features (principal); F11.90 Opioid use, unspecified, uncomplicated; F14.20 Cocaine dependence, uncomplicated | CPT/HCPCS: 99232 ==

== ENCOUNTER → 2024-04-30 14:51 | Outpatient (BNV) | payer MEDICAID, SELFPAY | PROVIDERS: Admitting Provider Nurse Practitioner Acute Care; Emergency Provider Student in an Organized Health Care Education/Training Program; Visit Provider Nurse Practitioner Family | DX: R56.9 Unspecified convulsions (principal); F19.20 Other psychoactive substance dependence, uncomplicated | CPT/HCPCS: 31500; 36556; 99291; 99499 ==

== ENCOUNTER → 2024-04-30 14:51 | Outpatient (BNV) | payer MEDICAID, SELFPAY | PROVIDERS: Admitting Provider Nurse Practitioner Acute Care; Emergency Provider Student in an Organized Health Care Education/Training Program; PCP Internal Medicine; Visit Provider Psychiatry & Neurology Neurology | DX: R56.9 Unspecified convulsions (principal) | CPT/HCPCS: 99222 ==

== ENCOUNTER → 2024-04-30 14:51 | Outpatient (BNV) | payer MEDICAID, SELFPAY | PROVIDERS: Admitting Provider Nurse Practitioner Acute Care; Emergency Provider Student in an Organized Health Care Education/Training Program; Visit Provider Nurse Practitioner Acute Care | DX: F10.939 Alcohol use, unspecified with withdrawal, unspecified (principal); F39 Unspecified mood [affective] disorder | CPT/HCPCS: 99223; 99499 ==

== ENCOUNTER 2024-05-14 13:07 | Outpatient (BNV) | payer MEDICAID, SELFPAY | END 2024-05-18 06:00 | PROVIDERS: Admitting Provider Clinical Nurse Specialist Psychiatric/Mental Health, Adult; Visit Provider Radiology Diagnostic Radiology | DX: R13.10 Dysphagia, unspecified (principal) | CPT/HCPCS: 74246 ==

== ENCOUNTER 2024-05-14 13:07 | Outpatient (BNV) | payer OTHER, SELFPAY | END 2024-05-14 15:50 | PROVIDERS: Admitting Provider Clinical Nurse Specialist Psychiatric/Mental Health, Adult; Visit Provider Internal Medicine Cardiovascular Disease | DX: R94.31 Abnormal electrocardiogram [ECG] [EKG] (principal); Z13.6 Encounter for screening for cardiovascular disorders | CPT/HCPCS: 93010 ==

== ENCOUNTER 2024-05-14 13:07 | Inpatient (IN) | payer OTHER, SELFPAY ==
--- NOTE | 2024-05-14 | ECG_ITS ---
Test Reason : r/o qtc prolongation, pt asks to restart stimulant Blood Pressure : */* mmHG Vent. Rate : 83 BPM Atrial Rate : 83 BPM P-R Int : 126 ms QRS Dur : 88 ms QT Int : 382 ms P-R-T Axes : 27 -2 41 degrees QTcB Int : 448 ms Normal sinus rhythm Cannot rule out Anterior infarct , age undetermined Abnormal ECG When compared with ECG of 07-May-2024 19:48, Nonspecific T wave abnormality, improved in Inferior leads Referred By: Jennifer Peck Electronically Signed By: CARLITA CASAREZ MD
--- NOTE | ~2024-05-14 | FL_ITS ---
EXAMINATION: XR FLUOROSCOPY UPPER GI SERIES CLINICAL INFORMATION: Dysphagia and nausea, vomiting, rule out stricture. Patient complaining of solid food getting stuck in esophagus, frequently. COMPARISON: None Correlation made with CT abdomen pelvis 04/19/2024. TECHNIQUE: Fluoroscopic air contrast upper GI examination was performed utilizing standard techniques with thin and thick barium and effervescent granules. Numerous spot images were obtained. Several fluoroscopic image hold cine sequences were also obtained. FINDINGS: UPPER GI SERIES: Lateral cine images of the oropharynx and hypopharynx demonstrate normal swallow mechanism with normal epiglottic inversion and soft palate elevation. No laryngeal penetration, glottic or subglottic aspiration identified. No nasopharyngeal reflux present. Hypopharyngeal structures appear normal without evidence of mass or diverticulum. There was mild cricopharyngeal achalasia. Dual and single contrast images of the esophagus demonstrate normal caliber, contour, and mucosal pattern. No evidence of stricture, mass, or ulcerations identified. There was mildly disordered esophageal motility. Small type I hiatus hernia. No significant gastroesophageal reflux was seen during the course of the examination and on reflux views. Dual contrast and single contrast images of the stomach demonstrated normal contour and rugal fold pattern without evidence of mass, mucosal abnormality, or ulcer. Contrast freely passed into the gastric antrum and duodenal bulb without delay. Single and air-contrast images of the duodenal bulb demonstrate no abnormality. The duodenal sweep has a normal appearance, course, and mucosal fold appearance. FLUOROSCOPY TIME: 3 minutes, 2 seconds Number of Spot Images:11 Number of cines obtained: 10 DOSE AREA PRODUCT: 400.2 dGy-m2 FL/FL upper GI series IMPRESSION: 1. Mild cricopharyngeal achalasia. 2. Mildly disordered esophageal peristalsis. No esophageal stricture or narrowing. 3. Small type I hiatus hernia present. 4. No definite esophageal reflux identified during the course of the examination. Electronically signed by: Phill Granger MD 05/18/2024 10:36 AM EDT
[2024-05-14 12:40] VITALS: BP 139/80; PULSE 86; RESP 20; TEMP 36.4; O2SAT 97
[2024-05-14] MEDS: LORazepam 1 MG TABLET PO ×2 (13:34→18:32)
[2024-05-14] MEDS: Nicotine Polacrilex 2 MG GUM 4 MG BUCCAL ×3 (13:34→18:00)
[2024-05-14 13:42] VITALS: BMI 28.8
[2024-05-14] MEDS: OLANZapine 5 MG TABLET PO (17:06)
[2024-05-14] MEDS: hydrOXYzine HCL 25 MG TABLET PO (17:06)
--- NOTE | 2024-05-14 17:24 | PC.ADMIT ---
Abiodun is a 49 year old male admitted to [facility] from the Med/tele floor around 12:30 this afternoon with a diagnosis of MDD and polysubstance use disorder/suicide attempt. Skin and safety check is unremarkable, only having multiple tattoos?covering arms, neck, upper torso. He signed a CV with Jacqueline and placed on 15 min checks. Per CARE team assessment he was admitted to the ICU on?04/30 due to an intentional OD? on polysubstances ( crack cocaine, PCP, heroin, alcohol, benzos) and medical decline resulting in multiple seizures. He transferred to the medical floor on 05/10. Abiodun's mother also had been in a SNF with ALS and recently . Abiodun has a long history of? alcohol and substance use? (heroin) starting? around age 11. He has a hx of at least 15 lethal suicide attempts in the past. He reports 5 years ago he OD'd on multiple medications and was on life support for 2 weeks at [facility]. He reports that this was a SA and that when he uses he becomes self loathing, suicidal,and has poor insight/impulse control.? He has? had brief periods of sobriety with the longest being 2.5 years in the distant past. He reports being in recovery for the past 6-7 months and relapsed on alcohol and cocaine prior to admission. He is currently unhoused after being kicked out of a sober house in [place]. He reports he has a psychiatrist who prescribes his medications for depression, ADHD, and PTSD. He was previously for 7 years and has a 17 year old daughter whom he has little contact with. He was oriented to the unit, admission completed, and given prn Ativan for anxiety. When asked if he felt actively suicidal he reported not really. He did not disclose a plan and said he can come to staff if feeling unsafe. He also shared that the provider mentioned ECT briefly to treat his MDD. He denies active? SI/HI/AVH. In the kitchen?he is social with select peers and playing cards.??
[2024-05-14 20:00] VITALS: RESP 14
[2024-05-14] MEDS: lamoTRIgine 25 MG TABLET 50 MG PO (21:28)
[2024-05-14] MEDS: Docusate Sodium 100 MG CAPSULE PO (21:28)
[2024-05-14] MEDS: Buprenorphine/Naloxone 8/2 mg FILM 1 FILM SUBLINGUAL (21:28)
[2024-05-14] MEDS: QUEtiapine Fumarate 200 MG TABLET PO (21:28)
[2024-05-15] MEDS: Folic Acid 1 MG TABLET PO (08:20)
[2024-05-15] MEDS: lamoTRIgine 25 MG TABLET 50 MG PO ×2 (08:20→20:08)
[2024-05-15] MEDS: Thiamine HCL 100 MG TABLET PO (08:21)
[2024-05-15] MEDS: Docusate Sodium 100 MG CAPSULE PO ×2 (08:21→20:08)
[2024-05-15] MEDS: Cyanocobalamin (Vitamin B-12) 1,000 MCG TABLET 1000 MCG PO (08:21)
[2024-05-15] MEDS: Buprenorphine/Naloxone 8/2 mg FILM 1 FILM SUBLINGUAL ×2 (08:21→20:08)
[2024-05-15] MEDS: Nicotine Polacrilex 2 MG GUM 4 MG BUCCAL ×4 (10:44→18:45)
[2024-05-15] MEDS: LORazepam 1 MG TABLET PO ×2 (10:44→16:35)
--- NOTE | 2024-05-15 11:38 | HO.PSYADMNOT ---
HPI Date of Service: 05/15/24 Chief Complaint: recurrent major depression, polysubstance use diso Sources of Information: patient interviewed, chart reviewed and crisis/core team assessment reviewed Additional Sources of Information: Seen 11:20am HPI Subjective Notes: Lambert Warning and Conditional Voluntary Healthcare Proxy: No Guardianship: No Medical Problems Affecting Mental Status: No Narrative: 49 yo male, hx of major depression, opiate use disorder, polysubstance use disorder, alcohol use disorder transferred from medicine s/p being found in the community after taking PCP, seizure activity in ER. Pt reported OD in suicide attempt. When on medicine, pt continued with seizures, sepsis, tachycardia required intubation ICU admit, versed, ketamine, precedex. He is here on a CV, stating today, I have never been as depressed as this time within the past seven months, when he reports some clean time. Main stressor is the of his mother last week-she developed ALS and quickly. Pt was unable to attend her services. Reports no treatment success with medications or substances. Pt is looking for a longer term recovery program/CSS. Medical team knows pt as he has required interventions s/p OD in the past. Past Psychiatric History: Inpt: several past psychiatric admission. Last one was back in 2023 at [facility]. OP: Chelsy Saleh- OP psychotherapist but has not seen patient in person for about one year, nor has had phone contact in several months. Psychotropic medications prescribed by Dr. Doyle Bermudez through [place] program for dual dx services. Both are terminated with pt he reports Hx of suicide attempts: several OD attempts, last one was in Oct 2023. 15 attempts pt reports Past medication trials: lexapro, adderall, propanolol- he has overdosed on these by history along with gabapentin Medical Evaluation Reviewed: Yes [facility] Medical History (Updated 05/16/24 @ 10:14 by Jennifer Peck, PREETI) Opioid use disorder Polysubstance abuse Mood disorder Narrative: DDD- spine Bunion Reports vomiting all of the time, blocks swallowing of food Family History: Father-addiction Social History: He is . He has a 17 year-old daughter with whom he reports has contact. No other family member reported. Born in [place]. Raised in [place] by his father Five siblings, estranged BA from [employer], [place] for 7 years, , one daughter, age 17 Substance History: most recently 6 months sober. Suboxone pt Long hx of use with intermittent sober periods, the longest he believes 2 years 8 months Vodka- up to a gallon daily Cocaine, Crack, PCP, Benzodiazepines Several detox admits by history Heroin-since age 12 Will take what every substances are available Trauma History: sexual/emotional/physical/verbal, details not provided Traumatic upbringing and childhood pt reports Diagnostics Vital Signs (24Hr): Vital Signs - 24 hr 05/14/24 12:40 05/14/24 20:00 Temperature 97.6 F Pulse Rate 86 Respiratory Rate 20 14 Blood Pressure 139/80 Pulse Oximetry 97 Oxygen Delivery Method Room Air BMI result Body Mass Index 28.8 Meds/Allergies Meds Home Medications ?Medication ?Instructions ?Recorded ?Confirmed ?Type buprenorphine 8 mg-naloxone 2 mg 1 film sublingual BID 04/20/24 05/14/24 History sublingual film (Suboxone) quetiapine 200 mg tablet 200 mg PO BEDTIME 04/20/24 05/15/24 History Allergies Allergies Allergy/AdvReac Type Severity Reaction Status Date / Time No Known Allergies Allergy Verified 04/30/24 19:27 Mental Status Exam Mental Status Exam Patient Appearance: Fatigued Patient Orientation: Person, Place and Situation Level of Consciousness: Alert Patient Behavior: Guarded, Talkative, Suspicious, Anxious, Fearful, Avoidant, Fatigued, Distractible and Good Eye Contact Mood Description: Depressed Affect Description: Flat Patient Cognition Impaired: No Ability to Follow Directions: Fair Speech Pattern: Spontaneous Speech Memory Description: Episodic Impaired Hallucinations: None Delusions: Not Present Thought Process: Rumination and Goal Oriented Thought Content: positive for Circumstantial, positive for Perseveration and positive for Suicidal Ideation (denies currently) Judgement: Poor Assessment & Plan Assessment & Plan (1) MDD (major depressive disorder), recurrent episode, severe: Status: Acute Code(s): F33.2 - Major depressive disorder, recurrent severe without psychotic features (2) Opioid use disorder: Status: Acute Code(s): F11.90 - Opioid use, unspecified, uncomplicated (3) Polysubstance (including opioids) dependence with physiological dependence: Status: Acute Code(s): F19.20 - Other psychoactive substance dependence, uncomplicated (4) Alcohol use disorder, moderate, dependence: Status: Acute Code(s): F10.20 - Alcohol dependence, uncomplicated (5) Grief reaction: Status: Acute Code(s): F43.21 - Adjustment disorder with depressed mood Plan Admit to [facility]. CV, 15 minute checks Re-establish regime Diagnostics as needed Encourage milieu participation Swallow Eval- pt reports frequent vomiting and inability to swallow solids Collateral contact Aftercare planning Potential need for Section 35 application Patient educated on: medication risk/benefits, substance abuse, therapeutic strategies and medical condition Reason for continued inpatient stay Substantial Risk for: harm to self, inability to function, rapid decompensation and med/psych decompensation Statement Statement: I have reviewed the history and physical and performed a pertinent examination on my patient. No changes have occurred unless specified. If the History and Physical was not performed prior to admission, the Hospitalist's service will be consulted for completing the admission physical. Time Spent With Patient Time: Total time managing care of this patient today ____ minutes.
[2024-05-15] MEDS: Amphetamine Mixed Salts 20 MG TABLET PO ×2 (13:03→16:13)
[2024-05-15] MEDS: OLANZapine 5 MG TABLET PO (15:25)
[2024-05-15] MEDS: hydrOXYzine HCL 25 MG TABLET PO (15:25)
[2024-05-15 19:33] VITALS: BP 135/83; PULSE 112; TEMP 36.4; O2SAT 97
[2024-05-15] MEDS: QUEtiapine Fumarate 200 MG TABLET PO (20:08)
[2024-05-15] MEDS: Propranolol HCL 10 MG TABLET PO (20:08)
[2024-05-16] MEDS: LORazepam 1 MG TABLET PO ×3 (02:38→20:19)
[2024-05-16] MEDS: Nicotine Polacrilex 2 MG GUM 4 MG BUCCAL ×6 (02:38→20:19)
[2024-05-16 08:00] VITALS: BP 116/70; PULSE 69; RESP 16; TEMP 37.1; O2SAT 96
[2024-05-16 08:23] VITALS: BP 116/70; PULSE 69
[2024-05-16] MEDS: Cyanocobalamin (Vitamin B-12) 1,000 MCG TABLET 1000 MCG PO (08:23)
[2024-05-16] MEDS: Propranolol HCL 10 MG TABLET PO ×2 (08:23→20:19)
[2024-05-16] MEDS: Escitalopram Oxalate 20 MG TABLET PO (08:24)
[2024-05-16] MEDS: Docusate Sodium 100 MG CAPSULE PO ×2 (08:24→20:19)
[2024-05-16] MEDS: lamoTRIgine 25 MG TABLET 50 MG PO ×2 (08:24→20:18)
[2024-05-16] MEDS: Folic Acid 1 MG TABLET PO (08:24)
[2024-05-16] MEDS: Thiamine HCL 100 MG TABLET PO (08:24)
[2024-05-16] MEDS: Buprenorphine/Naloxone 8/2 mg FILM 1 FILM SUBLINGUAL ×2 (08:25→20:18)
--- NOTE | 2024-05-16 10:44 | P.PNPSI_ITS ---
Subjective Subjective Date of Service: 05/16/24 Reason For Visit: INPT, dyphagia, nausea,vomitting Subjective Notes: Conditional Voluntary and 3 Day Healthcare Proxy: No Guardianship: No Medical Problems Affecting Mental Status: No Interim History: Beginning to attend group programs, recovery group. Worried about his car-was able to find where is is. Considering how to have it returned Discussed concerns about his overdose, filing the three day notice and priorities. Pt verbalized understanding. He plans to retract the three day, and call police to report the car. Discussed the risk of this and the potential danger it may bring to him when he returns to the community. Reviewed use of PCP, Fentanyl, Crack, Cocaine, Alcohol, Benzodiazepines Fentanyl- 3-4 bundles daily, smoking,injecting Crack-began age 14, eightball daily,smokes PCP-used for the first time-2 cigarettes Alcohol- One to two fifths vodka. Started at age 9. Has to combine this with cocaine however, neither are used on their own. Hx of Methadone 170 mg. Changed to Suboxone in [facility] with Gopi Mcnair NP in [facility] Medication Compliance: Yes Side effects from medications: No Attending Groups: Yes Review of Systems Acute medical concerns: No Review of Systems Review of Systems Denies Mental Status Exam Mental Status Exam Patient Appearance: Appropriate Patient Orientation: Person, Place, Time and Situation Level of Consciousness: Alert Patient Behavior: Talkative, Anxious, Fearful, Fatigued, Distractible and Good Eye Contact Mood Description: Depressed Affect Description: Flat Patient Cognition Impaired: No Ability to Follow Directions: Fair Speech Pattern: Spontaneous Speech Memory Description: Episodic Impaired Hallucinations: None Delusions: Not Present Thought Process: Rumination and Goal Oriented Thought Content: positive for Circumstantial, positive for Perseveration and positive for Suicidal Ideation (denies) Depressive Symptoms: Increased Anxiety and Thoughts of /Suicide (denies) Judgement: Fair Diagnostics Vital Signs (24Hr): Vital Signs - 24 hr 05/15/24 19:33 05/16/24 08:00 05/16/24 08:23 Temperature 97.6 F 98.7 F Pulse Rate 112 H 69 69 Respiratory Rate 16 Blood Pressure 135/83 116/70 116/70 Pulse Oximetry 97 96 Oxygen Delivery Method Room Air Room Air BMI result Body Mass Index 28.8 Medications Medications Current Medications Acetaminophen (Acetaminophen 325 Mg Tablet) 650 mg PO Q6H PRN PRN Reason: Headache/Pain, Scale 1-10 Al Hydroxide/Mg Hydroxide (Magnesium Hydrox/Alum Hydrox 30 Ml Oral.Susp) 30 ml PO Q6H PRN PRN Reason: Heartburn/Nausea Amphetamine/Dextroamphetamine (Amphetamine Mixed Salts 20 Mg Tablet) 20 mg PO 1400,1700 [facility] Last Admin: 05/15/24 16:13 Dose: 20 mg Buprenorphine/Naloxone (Buprenorphine/Naloxone 8/2 Mg Film) 1 film SUBLINGUAL BID [facility] Last Admin: 05/16/24 08:25 Dose: 1 film Cyanocobalamin (Cyanocobalamin (Vitamin B-12) 1,000 Mcg Tablet) 1,000 mcg PO DAILY [facility] Last Admin: 05/16/24 08:23 Dose: 1,000 mcg Docusate Sodium (Docusate Sodium 100 Mg Capsule) 100 mg PO BID [facility] Last Admin: 05/16/24 08:24 Dose: 100 mg Escitalopram Oxalate (Escitalopram Oxalate 20 Mg Tablet) 20 mg PO DAILY [facility] Last Admin: 05/16/24 08:24 Dose: 20 mg Folic Acid (Folic Acid 1 Mg Tablet) 1 mg PO DAILY [facility] Last Admin: 05/16/24 08:24 Dose: 1 mg Hydroxyzine HCl (Hydroxyzine Hcl 25 Mg Tablet) 25 mg PO Q6H PRN PRN Reason: mild anxiety Last Admin: 05/15/24 15:25 Dose: 25 mg Lamotrigine (Lamotrigine 25 Mg Tablet) 50 mg PO BID [facility] Last Admin: 05/16/24 08:24 Dose: 50 mg Lorazepam (Lorazepam 1 Mg Tablet) 1 mg PO Q6H PRN PRN Reason: Anxiety Last Admin: 05/16/24 02:38 Dose: 1 mg Magnesium Hydroxide (Milk Of Magnesia 30 Ml Oral.Susp) 30 ml PO DAILY PRN PRN Reason: Constipation Nicotine (Nicotine 21 Mg Patch.Td24) 21 mg TRANSDERMA DAILY [facility] Last Admin: 05/16/24 08:49 Dose: Not Given Nicotine Polacrilex (Nicotine Polacrilex 2 Mg Gum) 4 mg BUCCAL Q2H PRN PRN Reason: Nicotine Cravings Last Admin: 05/16/24 02:38 Dose: 4 mg Pt Own Medication ( (Vyvanse 60 Mg)) 60 mg PO DAILY [facility] Olanzapine (Olanzapine 5 Mg Tablet) 5 mg PO Q4H PRN PRN Reason: agitation Last Admin: 05/15/24 15:25 Dose: 5 mg Polyethylene Glycol (Polyethylene Glycol 3350 17 Gm Powd.Pack) 17 gm PO DAILY PRN PRN Reason: Constipation Propranolol HCl (Propranolol Hcl 10 Mg Tablet) 10 mg PO BID [facility]; Protocol Last Admin: 05/16/24 08:23 Dose: 10 mg Quetiapine Fumarate (Quetiapine Fumarate 200 Mg Tablet) 200 mg PO BEDTIME [facility] Last Admin: 05/15/24 20:08 Dose: 200 mg Thiamine HCl (Thiamine Hcl 100 Mg Tablet) 100 mg PO DAILY [facility] Last Admin: 05/16/24 08:24 Dose: 100 mg Trazodone HCl (Trazodone Hcl 50 Mg Tablet) 50 mg PO BEDTIME MRX1 PRN PRN Reason: Insomnia Allergies Allergies Allergy/AdvReac Type Severity Reaction Status Date / Time No Known Allergies Allergy Verified 04/30/24 19:27 Assessment & Plan Assessment & Plan (1) MDD (major depressive disorder), recurrent episode, severe: Status: Acute Code(s): F33.2 - Major depressive disorder, recurrent severe without psychotic features (2) Opioid use disorder: Status: Acute Code(s): F11.90 - Opioid use, unspecified, uncomplicated (3) Polysubstance (including opioids) dependence with physiological dependence: Status: Acute Code(s): F19.20 - Other psychoactive substance dependence, uncomplicated (4) Alcohol use disorder, moderate, dependence: Status: Acute Code(s): F10.20 - Alcohol dependence, uncomplicated (5) Grief reaction: Status: Acute Code(s): F43.21 - Adjustment disorder with depressed mood Plan Admit to M5. CV, 15 minute checks Re-establish regime Diagnostics as needed Encourage milieu participation Swallow Eval- pt reports frequent vomiting and inability to swallow solids Collateral contact Aftercare planning Potential need for Section 35 application 05/17/24-Continue tx Encourage CSS post hospital admission. Reason for continued inpatient stay Substantial Risk for: rapid decompensation Time Spent With Patient Time: Total time managing care of this patient today ____ minutes.
[2024-05-16] MEDS: Amphetamine Mixed Salts 20 MG TABLET PO ×2 (14:17→16:01)
--- NOTE | 2024-05-16 15:50 | MHC.SLORD ---
Speech Language Pathology Order Status: Pt hx involves complex esophageal dysphagia. Pt denied oropharyngeal difficulties. PASSENGER TIRE BUILDER available to consult following GI assessment if indicated. Ordering physician notified of PASSENGER TIRE BUILDER recc.
[2024-05-16] MEDS: Nystatin Powder 15 GM BOTTLE 1 APPL TOPICAL (18:11)
[2024-05-16 19:39] VITALS: BP 141/86; PULSE 93; TEMP 36.9; O2SAT 97
[2024-05-16] MEDS: QUEtiapine Fumarate 200 MG TABLET PO (20:19)
[2024-05-17 07:00] VITALS: BMI 29.4
[2024-05-17] MEDS: Thiamine HCL 100 MG TABLET PO (08:31)
[2024-05-17] MEDS: Cyanocobalamin (Vitamin B-12) 1,000 MCG TABLET 1000 MCG PO (08:31)
[2024-05-17] MEDS: Folic Acid 1 MG TABLET PO (08:31)
[2024-05-17] MEDS: Escitalopram Oxalate 20 MG TABLET PO (08:32)
[2024-05-17] MEDS: lamoTRIgine 25 MG TABLET 50 MG PO ×2 (08:32→20:27)
[2024-05-17] MEDS: Docusate Sodium 100 MG CAPSULE PO ×2 (08:32→20:29)
[2024-05-17] MEDS: Buprenorphine/Naloxone 8/2 mg FILM 1 FILM SUBLINGUAL ×2 (08:35→20:30)
[2024-05-17] MEDS: Nicotine Polacrilex 2 MG GUM 4 MG BUCCAL ×5 (08:39→20:31)
[2024-05-17] MEDS: Nystatin Powder 15 GM BOTTLE 1 APPL TOPICAL ×3 (11:27→20:32)
--- NOTE | 2024-05-17 12:07 | PM.GICN ---
History of Present Illness Data of Consult Service Date: 05/17/24 Primary Care Provider: Unknown Physician HPI Reason for consult: nausea, vomiitng, dysphagia 49-year-old male with history of polysubstance use disorder, alcohol use disorder, mood disorder who I am seeing for assessment for issues with swallowing, nausea and dysphagia Patient notes symptoms going on for months, unless food items are wet can get stuck in lower chest area and can be painful to swallow. He has issues with nasuea and vomiting, but denies coffee grounds, and no melena or rectal bleeding. his weigt has been stable. He denies acid reflux, and is not on any medications. He says he was told he has gastroparesis from heroin use. in addition to using drugs can also be taking liquor. denies taking nsaids Review of Systems Review of Systems: Constitutional : No Weight loss, No Fever, No Chills ENT/Mouth : No sore throat, No Rhinorrhea Eyes: No Swelling, No Redness Cardiovascular : No Chest Pain, No SOB, No Edema Respiratory : No Cough, No Sputum, No Wheezing Gastrointestinal : see HPI Genitourinary : NO Dysuria, No Urinary Frequency, No Hematuria, No Urgency Musculoskeletal : no joint pain, No Myalgias, No Joint Swelling Skin : No Skin Lesions, No rash Neuro : No Weakness, No Numbness, No Dizziness, No Headache Psych : No Anxiety/Panic, + Depression Heme/Lymph: No Bruising, No Lymphadenopathy Endocrine : No Polyuria, No Polydipsia All other systems reviewed and are negative. [facility] Past Medical History Medical History (Updated 05/17/24 @ 12:12 by Tay Callejas MD) Opioid use disorder Polysubstance abuse Mood disorder Family History Pertinent family history: denies FH of esophageal cancers or GI cancers Social History Social History Household Members: None Housing: Homeless Do you presently have visiting nurse or other home services: No Alcohol intake: current Comment: Sitter Patient Tobacco Use Status: Current everyday Tobacco user Tobacco use type: Cigarette Cigarette Packs Per Day: 2 Cigarettes Per Day: 40.0 Smoked in Last 30 Days: Yes e-Cigarette/Vaping Use: Never Used Patient Interested in Nicotine Replacement: Yes Patient Given Instructions on How to Stop Smoking: No Second Hand Smoke Exposure: No Substance Use Type: Crack/Cocaine, Heroin and Marijuana Substance Use Frequency: Chronic Longstanding Last Used Substance: Just Prior to Admission Currently Displaying Signs/Symptoms of Drug Intoxication Withdrawal: No Any prior treatment program specific to substance use: Yes Have you been hit, kicked, punched, or otherwise hurt by someone within the past year? If so, by whom?: No Do you feel safe in your current relationship?: No Current Relationship Is there a partner from a previous relationship who is making you feel unsafe now?: No Are you made to feel afraid or neglected: No Spiritual Healthcare Practices: none Mandaen Healthcare Practices: none Cultural Healthcare Practices: none Advance Directives: Yes Advance Directives Information Provided: No Advance Directives on File: No Do you have thoughts of harming others: None Do you have a plan to hurt others: No Plan Recently lost weight without trying: Unsure How much weight loss: Unsure Eating poorly because of decreased appetite: No Nutrition screen score: 4 Nutrition Risks: No Nutritional Risk Poor oral hygiene: No service: No Sexual orientation: Straight/Heterosexual Meds Allergies Allergy/AdvReac Type Severity Reaction Status Date / Time No Known Allergies Allergy Verified 04/30/24 19:27 Active Medications: Current Medications Acetaminophen (Acetaminophen 325 Mg Tablet) 650 mg PO Q6H PRN PRN Reason: Headache/Pain, Scale 1-10 Al Hydroxide/Mg Hydroxide (Magnesium Hydrox/Alum Hydrox 30 Ml Oral.Susp) 30 ml PO Q6H PRN PRN Reason: Heartburn/Nausea Amphetamine/Dextroamphetamine (Amphetamine Mixed Salts 20 Mg Tablet) 20 mg PO 1400,1700 [facility] Last Admin: 05/16/24 16:01 Dose: 20 mg Buprenorphine/Naloxone (Buprenorphine/Naloxone 8/2 Mg Film) 1 film SUBLINGUAL BID [facility] Last Admin: 05/17/24 08:35 Dose: 1 film Cyanocobalamin (Cyanocobalamin (Vitamin B-12) 1,000 Mcg Tablet) 1,000 mcg PO DAILY [facility] Last Admin: 05/17/24 08:31 Dose: 1,000 mcg Docusate Sodium (Docusate Sodium 100 Mg Capsule) 100 mg PO BID [facility] Last Admin: 05/17/24 08:32 Dose: 100 mg Escitalopram Oxalate (Escitalopram Oxalate 20 Mg Tablet) 20 mg PO DAILY [facility] Last Admin: 05/17/24 08:32 Dose: 20 mg Folic Acid (Folic Acid 1 Mg Tablet) 1 mg PO DAILY [facility] Last Admin: 05/17/24 08:31 Dose: 1 mg Hydroxyzine HCl (Hydroxyzine Hcl 25 Mg Tablet) 25 mg PO Q6H PRN PRN Reason: mild anxiety Last Admin: 05/15/24 15:25 Dose: 25 mg Lamotrigine (Lamotrigine 25 Mg Tablet) 50 mg PO BID [facility] Last Admin: 05/17/24 08:32 Dose: 50 mg Lorazepam (Lorazepam 1 Mg Tablet) 1 mg PO Q6H PRN PRN Reason: Anxiety Last Admin: 05/16/24 20:19 Dose: 1 mg Magnesium Hydroxide (Milk Of Magnesia 30 Ml Oral.Susp) 30 ml PO DAILY PRN PRN Reason: Constipation Nicotine (Nicotine 21 Mg Patch.Td24) 21 mg TRANSDERMA DAILY [facility] Last Admin: 05/17/24 09:55 Dose: Not Given Nicotine Polacrilex (Nicotine Polacrilex 2 Mg Gum) 4 mg BUCCAL Q2H PRN PRN Reason: Nicotine Cravings Last Admin: 05/17/24 08:39 Dose: 4 mg Pt Own Medication ( (Vyvanse 60 Mg)) 60 mg PO DAILY [facility] Last Admin: 05/17/24 08:38 Dose: 60 mg Nystatin (Nystatin Powder 15 Gm Bottle) 1 appl TOPICAL TID [facility]; Protocol Last Admin: 05/17/24 11:27 Dose: 1 appl Olanzapine (Olanzapine 5 Mg Tablet) 5 mg PO Q4H PRN PRN Reason: agitation Last Admin: 05/15/24 15:25 Dose: 5 mg Omeprazole (Omeprazole 40 Mg Capsule.Dr) 40 mg PO BID@0630,1630 [facility] Polyethylene Glycol (Polyethylene Glycol 3350 17 Gm Powd.Pack) 17 gm PO DAILY PRN PRN Reason: Constipation Propranolol HCl (Propranolol Hcl 10 Mg Tablet) 10 mg PO BID [facility]; Protocol Last Admin: 05/17/24 09:56 Dose: Not Given Quetiapine Fumarate (Quetiapine Fumarate 200 Mg Tablet) 200 mg PO BEDTIME [facility] Last Admin: 05/16/24 20:19 Dose: 200 mg Sucralfate (Sucralfate Oral Suspension 1 Gm/10 Ml Oral.Susp) 1 gm PO BID [facility] Thiamine HCl (Thiamine Hcl 100 Mg Tablet) 100 mg PO DAILY [facility] Last Admin: 05/17/24 08:31 Dose: 100 mg Trazodone HCl (Trazodone Hcl 50 Mg Tablet) 50 mg PO BEDTIME MRX1 PRN PRN Reason: Insomnia Home Medications ?Medication ?Instructions ?Recorded ?Confirmed ?Last Taken ?Type buprenorphine 8 mg-naloxone 2 mg 1 film sublingual BID 04/20/24 05/14/24 05/14/24 08:26 History sublingual film (Suboxone) 1 quetiapine 200 mg tablet 200 mg PO BEDTIME 04/20/24 05/15/24 Unknown History Physical Exam Vital Signs: Vital Signs: Last Vital Signs Temp 98.4 F 05/16/24 19:39 Pulse 93 05/16/24 19:39 Resp 16 05/16/24 08:00 BP 141/86 H 05/16/24 19:39 Pulse Ox 97 05/16/24 19:39 O2 Del Method Room Air 05/16/24 19:39 BMI result Body Mass Index 28.8 EXAM: GENERAL: The patient is well developed and nontoxic. VITAL SIGNS:see workflow HEENT: Nonicteric sclerae, PERRLA, EOMI. Oropharynx clear. Moist mucous membranes. Conjunctivae appear well perfused. No thyroid mass. no oral thrush noted CHEST: Chest wall is nontender. HEART: Regular rate and rhythm without murmurs. LUNGS: Clear to auscultation bilaterally. ABDOMEN: Soft, positive bowel sounds, nontender, no organomegaly.no flank tenderness SKIN: No rash, no excessive bruising, petechiae, or purpura. NEUROLOGIC: Cranial nerves II-XII intact without motor/sensory deficit. Psych: normal affect Results Imaging CT scan - chest: Attestation: I personally reviewed and interpreted this imaging study as follows: (thickened esophagus distal and mid areas on Ct chest ) Assessment and Plan (1) Dysphagia: Status: Acute Plan 1/ Chronic dysphagia with drug use and alcohol use, never been on PPI, most likely has esophagitis, may have stricture, less likely to have neoplasia. ddx: HSV, thrush or CMV, dysmotility PLAN: 1/ upper GI series 2/ high dose PPI and carafate 3/ depending on GI series may need EGD 4/ check HIV test Procedures Date of Service Date of Service: 05/17/24
[2024-05-17] MEDS: LORazepam 1 MG TABLET PO ×2 (12:38→19:48)
[2024-05-17] MEDS: Amphetamine Mixed Salts 20 MG TABLET PO ×2 (13:45→16:09)
--- NOTE | 2024-05-17 14:24 | HO.PSYCHPN ---
Subjective Subjective Date of Service: 05/17/24 Reason For Visit: INPT, dyphagia, nausea,vomitting Subjective Notes: Conditional Voluntary Healthcare Proxy: No Guardianship: No Medical Problems Affecting Mental Status: No Interim History: Three day notice retracted. Pt referred to [facility] Working on sorting out current issues so he may enter longer term addiction treatment. Reports family is a support Continues to grieve recent loss of his mother. Denies medicine SE. Asks for no changes in regime today. Medication Compliance: Yes Side effects from medications: No Attending Groups: Intermittent Review of Systems Acute medical concerns: No Review of Systems Review of Systems Denies Mental Status Exam Mental Status Exam Patient Appearance: Appropriate Patient Orientation: Person, Place, Time and Situation Level of Consciousness: Alert Patient Behavior: Talkative, Cooperative and Good Eye Contact Mood Description: Depressed Affect Description: Apprehensive Patient Cognition Impaired: No Ability to Follow Directions: Good Speech Pattern: Spontaneous Speech Memory Description: Intact Hallucinations: None Delusions: Not Present Thought Process: Distracted Thought Content: positive for Circumstantial and positive for Perseveration Depressive Symptoms: Low Self Esteem Judgement: Fair Diagnostics Vital Signs (24Hr): Vital Signs - 24 hr 05/16/24 19:39 Temperature 98.4 F Pulse Rate 93 Blood Pressure 141/86 H Pulse Oximetry 97 Oxygen Delivery Method Room Air BMI result Body Mass Index 28.8 Medications Medications Current Medications Acetaminophen (Acetaminophen 325 Mg Tablet) 650 mg PO Q6H PRN PRN Reason: Headache/Pain, Scale 1-10 Al Hydroxide/Mg Hydroxide (Magnesium Hydrox/Alum Hydrox 30 Ml Oral.Susp) 30 ml PO Q6H PRN PRN Reason: Heartburn/Nausea Amphetamine/Dextroamphetamine (Amphetamine Mixed Salts 20 Mg Tablet) 20 mg PO 1400,1700 [facility] Last Admin: 05/17/24 13:45 Dose: 20 mg Buprenorphine/Naloxone (Buprenorphine/Naloxone 8/2 Mg Film) 1 film SUBLINGUAL BID [facility] Last Admin: 05/17/24 08:35 Dose: 1 film Cyanocobalamin (Cyanocobalamin (Vitamin B-12) 1,000 Mcg Tablet) 1,000 mcg PO DAILY [facility] Last Admin: 05/17/24 08:31 Dose: 1,000 mcg Docusate Sodium (Docusate Sodium 100 Mg Capsule) 100 mg PO BID [facility] Last Admin: 05/17/24 08:32 Dose: 100 mg Escitalopram Oxalate (Escitalopram Oxalate 20 Mg Tablet) 20 mg PO DAILY [facility] Last Admin: 05/17/24 08:32 Dose: 20 mg Folic Acid (Folic Acid 1 Mg Tablet) 1 mg PO DAILY [facility] Last Admin: 05/17/24 08:31 Dose: 1 mg Hydroxyzine HCl (Hydroxyzine Hcl 25 Mg Tablet) 25 mg PO Q6H PRN PRN Reason: mild anxiety Last Admin: 05/15/24 15:25 Dose: 25 mg Lamotrigine (Lamotrigine 25 Mg Tablet) 50 mg PO BID [facility] Last Admin: 05/17/24 08:32 Dose: 50 mg Lorazepam (Lorazepam 1 Mg Tablet) 1 mg PO Q6H PRN PRN Reason: Anxiety Last Admin: 05/17/24 12:38 Dose: 1 mg Magnesium Hydroxide (Milk Of Magnesia 30 Ml Oral.Susp) 30 ml PO DAILY PRN PRN Reason: Constipation Nicotine (Nicotine 21 Mg Patch.Td24) 21 mg TRANSDERMA DAILY [facility] Last Admin: 05/17/24 09:55 Dose: Not Given Nicotine Polacrilex (Nicotine Polacrilex 2 Mg Gum) 4 mg BUCCAL Q2H PRN PRN Reason: Nicotine Cravings Last Admin: 05/17/24 12:38 Dose: 4 mg Pt Own Medication ( (Vyvanse 60 Mg)) 60 mg PO DAILY [facility] Last Admin: 05/17/24 08:38 Dose: 60 mg Nystatin (Nystatin Powder 15 Gm Bottle) 1 appl TOPICAL TID [facility]; Protocol Last Admin: 05/17/24 11:27 Dose: 1 appl Olanzapine (Olanzapine 5 Mg Tablet) 5 mg PO Q4H PRN PRN Reason: agitation Last Admin: 05/15/24 15:25 Dose: 5 mg Omeprazole (Omeprazole 40 Mg Capsule.Dr) 40 mg PO BID@0630,1630 [facility] Polyethylene Glycol (Polyethylene Glycol 3350 17 Gm Powd.Pack) 17 gm PO DAILY PRN PRN Reason: Constipation Propranolol HCl (Propranolol Hcl 10 Mg Tablet) 10 mg PO BID [facility]; Protocol Last Admin: 05/17/24 09:56 Dose: Not Given Quetiapine Fumarate (Quetiapine Fumarate 200 Mg Tablet) 200 mg PO BEDTIME [facility] Last Admin: 05/16/24 20:19 Dose: 200 mg Sucralfate (Sucralfate Oral Suspension 1 Gm/10 Ml Oral.Susp) 1 gm PO BID [facility] Thiamine HCl (Thiamine Hcl 100 Mg Tablet) 100 mg PO DAILY [facility] Last Admin: 05/17/24 08:31 Dose: 100 mg Trazodone HCl (Trazodone Hcl 50 Mg Tablet) 50 mg PO BEDTIME MRX1 PRN PRN Reason: Insomnia Allergies Allergies Allergy/AdvReac Type Severity Reaction Status Date / Time No Known Allergies Allergy Verified 04/30/24 19:27 Assessment & Plan Assessment & Plan (1) MDD (major depressive disorder), recurrent episode, severe: Status: Acute Code(s): F33.2 - Major depressive disorder, recurrent severe without psychotic features (2) Opioid use disorder: Status: Acute Code(s): F11.90 - Opioid use, unspecified, uncomplicated (3) Polysubstance (including opioids) dependence with physiological dependence: Status: Acute Code(s): F19.20 - Other psychoactive substance dependence, uncomplicated (4) Grief reaction: Status: Acute Code(s): F43.21 - Adjustment disorder with depressed mood (5) Polysubstance abuse: Status: Acute Code(s): F19.10 - Other psychoactive substance abuse, uncomplicated Plan 1/ Chronic dysphagia with drug use and alcohol use, never been on PPI, most likely has esophagitis, may have stricture, less likely to have neoplasia. ddx: HSV, thrush or CMV, dysmotility PLAN: 1/ upper GI series 2/ high dose PPI and carafate 3/ depending on GI series may need EGD 4/ check HIV test 05/17 GI consult much appreciated. Continue tx. Reason for continued inpatient stay Substantial Risk for: rapid decompensation and med/psych decompensation Time Spent With Patient Time: Total time managing care of this patient today ____ minutes.
[2024-05-17] MEDS: Omeprazole 40 MG CAPSULE.DR PO (16:09)
--- NOTE | 2024-05-17 18:23 | MHC.SLORD ---
Speech Language Pathology Order Status: Patient seen again today at lunch to clarify RESEARCH SUPPORT SPECIALIST recommendation from 05/16/24. Patient presented as very self aware of swallowing issues, is aware issue is esophogeal and reported that he was seen for an initial GI consult today. RESEARCH SUPPORT SPECIALIST recommended discharge of eval yesterday and did not complete assessment. This RESEARCH SUPPORT SPECIALIST will discharge eval in expanse. Please re-consult if additional concerns arise.
[2024-05-17 20:25] VITALS: BP 147/90; PULSE 83; RESP 20; TEMP 36.8; O2SAT 98
[2024-05-17 20:28] VITALS: BP 147/90; PULSE 83
[2024-05-17] MEDS: Propranolol HCL 10 MG TABLET PO (20:28)
[2024-05-17] MEDS: QUEtiapine Fumarate 200 MG TABLET PO (20:28)
[2024-05-17] MEDS: Sucralfate Oral Suspension 1 GM/10 ML ORAL.SUSP PO (20:29)
--- NOTE | 2024-05-18 07:23 | PC.NURSE ---
pt ate 2 packs of crackers and a carton of milk despite being told by staff that he is NPO for a GI series. Radiology was made aware. They requested that the pt be brought down around 0830.
[2024-05-18 07:49] VITALS: BP 124/57; PULSE 60; RESP 18; TEMP 36.1; O2SAT 96
[2024-05-18 08:17] LABS: HIV AB/AG Nonreactive (Nonreactive); HIV Num 1 0.09 S/CO (0.00-0.99)
[2024-05-18] MEDS: Sucralfate Oral Suspension 1 GM/10 ML ORAL.SUSP PO ×2 (08:48→20:17)
[2024-05-18] MEDS: Buprenorphine/Naloxone 8/2 mg FILM 1 FILM SUBLINGUAL ×2 (08:48→20:17)
[2024-05-18] MEDS: Docusate Sodium 100 MG CAPSULE PO ×2 (08:48→20:18)
[2024-05-18] MEDS: Propranolol HCL 10 MG TABLET PO ×2 (08:49→20:18)
[2024-05-18] MEDS: Escitalopram Oxalate 20 MG TABLET PO (08:49)
[2024-05-18] MEDS: Thiamine HCL 100 MG TABLET PO (08:49)
[2024-05-18] MEDS: Cyanocobalamin (Vitamin B-12) 1,000 MCG TABLET 1000 MCG PO (08:49)
[2024-05-18] MEDS: lamoTRIgine 25 MG TABLET 50 MG PO ×2 (08:49→20:18)
[2024-05-18] MEDS: Folic Acid 1 MG TABLET PO (08:49)
[2024-05-18] MEDS: Omeprazole 40 MG CAPSULE.DR PO ×2 (08:49→16:25)
[2024-05-18] MEDS: Nicotine Polacrilex 2 MG GUM 4 MG BUCCAL ×5 (08:53→21:12)
--- NOTE | 2024-05-18 10:14 | HO.PSYCHPN ---
Subjective Subjective Date of Service: 05/18/24 Reason For Visit: INPT, dyphagia, nausea,vomitting Subjective Notes: Conditional Voluntary Healthcare Proxy: No Guardianship: No Medical Problems Affecting Mental Status: No Interim History: Denies SI,HI,AH,VH Continues to work with the team on program applications. review of medications. Lorazepam DC. Change to Klonopin Reports remainder of regime is tolerated and helping to manage sx. Medication Compliance: Yes Side effects from medications: No Attending Groups: Intermittent Review of Systems Acute medical concerns: No Met with GI team, feeling very supported by this consult he reports. Review of Systems Review of Systems Denies today Mental Status Exam Mental Status Exam Patient Appearance: Appropriate Patient Orientation: Person, Place, Time and Situation Level of Consciousness: Alert Patient Behavior: Talkative, Cooperative and Good Eye Contact Mood Description: Depressed Affect Description: Apprehensive Patient Cognition Impaired: No Ability to Follow Directions: Good Speech Pattern: Spontaneous Speech Memory Description: Intact Hallucinations: None Delusions: Not Present Thought Process: Distracted Thought Content: positive for Circumstantial and positive for Perseveration Depressive Symptoms: Low Self Esteem Judgement: Fair Diagnostics Vital Signs (24Hr): Vital Signs - 24 hr 05/17/24 20:25 05/17/24 20:28 05/18/24 07:49 Temperature 98.2 F 97.0 F Pulse Rate 83 83 60 Respiratory Rate 20 18 Blood Pressure 147/90 H 147/90 H 124/57 L Pulse Oximetry 98 96 Oxygen Delivery Method Room Air Room Air BMI result Body Mass Index 29.4 Labs Labs: Laboratory Results - last 48 hr 05/17/24 20:00 HIV 1&2 Ab/P24 Ag 4thGn Nonreactive Medications Medications Current Medications Acetaminophen (Acetaminophen 325 Mg Tablet) 650 mg PO Q6H PRN PRN Reason: Headache/Pain, Scale 1-10 Al Hydroxide/Mg Hydroxide (Magnesium Hydrox/Alum Hydrox 30 Ml Oral.Susp) 30 ml PO Q6H PRN PRN Reason: Heartburn/Nausea Amphetamine/Dextroamphetamine (Amphetamine Mixed Salts 20 Mg Tablet) 20 mg PO 1400,1700 [facility] Last Admin: 05/17/24 16:09 Dose: 20 mg Buprenorphine/Naloxone (Buprenorphine/Naloxone 8/2 Mg Film) 1 film SUBLINGUAL BID [facility] Last Admin: 05/18/24 08:48 Dose: 1 film Cyanocobalamin (Cyanocobalamin (Vitamin B-12) 1,000 Mcg Tablet) 1,000 mcg PO DAILY [facility] Last Admin: 05/18/24 08:49 Dose: 1,000 mcg Docusate Sodium (Docusate Sodium 100 Mg Capsule) 100 mg PO BID [facility] Last Admin: 05/18/24 08:48 Dose: 100 mg Escitalopram Oxalate (Escitalopram Oxalate 20 Mg Tablet) 20 mg PO DAILY [facility] Last Admin: 05/18/24 08:49 Dose: 20 mg Folic Acid (Folic Acid 1 Mg Tablet) 1 mg PO DAILY [facility] Last Admin: 05/18/24 08:49 Dose: 1 mg Hydroxyzine HCl (Hydroxyzine Hcl 25 Mg Tablet) 25 mg PO Q6H PRN PRN Reason: mild anxiety Last Admin: 05/15/24 15:25 Dose: 25 mg Lamotrigine (Lamotrigine 25 Mg Tablet) 50 mg PO BID [facility] Last Admin: 05/18/24 08:49 Dose: 50 mg Lorazepam (Lorazepam 1 Mg Tablet) 1 mg PO Q6H PRN PRN Reason: Anxiety Last Admin: 05/17/24 19:48 Dose: 1 mg Magnesium Hydroxide (Milk Of Magnesia 30 Ml Oral.Susp) 30 ml PO DAILY PRN PRN Reason: Constipation Nicotine (Nicotine 21 Mg Patch.Td24) 21 mg TRANSDERMA DAILY [facility] Last Admin: 05/18/24 09:12 Dose: Not Given Nicotine Polacrilex (Nicotine Polacrilex 2 Mg Gum) 4 mg BUCCAL Q2H PRN PRN Reason: Nicotine Cravings Last Admin: 05/18/24 08:53 Dose: 4 mg Pt Own Medication ( (Vyvanse 60 Mg)) 60 mg PO DAILY [facility] Last Admin: 05/18/24 08:52 Dose: 60 mg Nystatin (Nystatin Powder 15 Gm Bottle) 1 appl TOPICAL TID [facility]; Protocol Last Admin: 05/18/24 09:13 Dose: Not Given Olanzapine (Olanzapine 5 Mg Tablet) 5 mg PO Q4H PRN PRN Reason: agitation Last Admin: 05/15/24 15:25 Dose: 5 mg Omeprazole (Omeprazole 40 Mg Capsule.Dr) 40 mg PO BID@0630,1630 [facility] Last Admin: 05/18/24 08:49 Dose: 40 mg Polyethylene Glycol (Polyethylene Glycol 3350 17 Gm Powd.Pack) 17 gm PO DAILY PRN PRN Reason: Constipation Propranolol HCl (Propranolol Hcl 10 Mg Tablet) 10 mg PO BID [facility]; Protocol Last Admin: 05/18/24 08:49 Dose: 10 mg Quetiapine Fumarate (Quetiapine Fumarate 200 Mg Tablet) 200 mg PO BEDTIME [facility] Last Admin: 05/17/24 20:28 Dose: 200 mg Sucralfate (Sucralfate Oral Suspension 1 Gm/10 Ml Oral.Susp) 1 gm PO BID [facility] Last Admin: 05/18/24 08:48 Dose: 1 gm Thiamine HCl (Thiamine Hcl 100 Mg Tablet) 100 mg PO DAILY [facility] Last Admin: 05/18/24 08:49 Dose: 100 mg Trazodone HCl (Trazodone Hcl 50 Mg Tablet) 50 mg PO BEDTIME MRX1 PRN PRN Reason: Insomnia Allergies Allergies Allergy/AdvReac Type Severity Reaction Status Date / Time No Known Allergies Allergy Verified 04/30/24 19:27 Assessment & Plan Assessment & Plan (1) MDD (major depressive disorder), recurrent episode, severe: Status: Acute Code(s): F33.2 - Major depressive disorder, recurrent severe without psychotic features (2) Opioid use disorder: Status: Acute Code(s): F11.90 - Opioid use, unspecified, uncomplicated (3) Polysubstance (including opioids) dependence with physiological dependence: Status: Acute Code(s): F19.20 - Other psychoactive substance dependence, uncomplicated (4) Grief reaction: Status: Acute Code(s): F43.21 - Adjustment disorder with depressed mood (5) Polysubstance abuse: Status: Acute Code(s): F19.10 - Other psychoactive substance abuse, uncomplicated Plan 05/18/24: DC Lorazepam Klonopin prn Continue tx Reason for continued inpatient stay Substantial Risk for: rapid decompensation and med/psych decompensation Time Spent With Patient Time: Total time managing care of this patient today ____ minutes.
[2024-05-18] MEDS: LORazepam 1 MG TABLET PO (11:16)
[2024-05-18] MEDS: Amphetamine Mixed Salts 20 MG TABLET PO ×2 (13:23→16:25)
[2024-05-18] MEDS: Nystatin Powder 15 GM BOTTLE 1 APPL TOPICAL (14:08)
[2024-05-18] MEDS: clonazePAM 0.5 MG TABLET PO ×2 (14:11→18:52)
[2024-05-18 20:00] VITALS: BP 140/73; PULSE 99; TEMP 36.9; O2SAT 99
[2024-05-18] MEDS: traZODone HCL 50 MG TABLET PO (20:17)
[2024-05-18 20:18] VITALS: BP 140/73; PULSE 99
[2024-05-18] MEDS: QUEtiapine Fumarate 200 MG TABLET PO (20:18)
[2024-05-19] MEDS: Omeprazole 40 MG CAPSULE.DR PO ×2 (06:16→17:27)
[2024-05-19 08:00] VITALS: BP 131/64; PULSE 62; RESP 16; TEMP 36.6; O2SAT 96
[2024-05-19] MEDS: lamoTRIgine 25 MG TABLET 50 MG PO ×2 (08:02→20:11)
[2024-05-19] MEDS: Thiamine HCL 100 MG TABLET PO (08:02)
[2024-05-19] MEDS: Docusate Sodium 100 MG CAPSULE PO ×2 (08:02→20:11)
[2024-05-19] MEDS: Cyanocobalamin (Vitamin B-12) 1,000 MCG TABLET 1000 MCG PO (08:02)
[2024-05-19] MEDS: Sucralfate Oral Suspension 1 GM/10 ML ORAL.SUSP PO ×2 (08:02→20:11)
[2024-05-19] MEDS: Folic Acid 1 MG TABLET PO (08:02)
[2024-05-19] MEDS: Propranolol HCL 10 MG TABLET PO ×2 (08:02→20:11)
[2024-05-19] MEDS: Buprenorphine/Naloxone 8/2 mg FILM 1 FILM SUBLINGUAL ×2 (08:03→20:11)
[2024-05-19] MEDS: Escitalopram Oxalate 20 MG TABLET PO (08:03)
--- NOTE | 2024-05-19 08:36 | P.PNPSI_ITS ---
Subjective Subjective Date of Service: 05/19/24 Reason For Visit: INPT, dyphagia, nausea,vomitting Subjective Notes: Conditional Voluntary Healthcare Proxy: No Guardianship: No Medical Problems Affecting Mental Status: No Interim History: 49 yo s/p multiple weeks in hospital from relapse and severe od- reports better and focused on finding his car [place] streets near his [address]- where his wallet and keys are - BEFORE he goes to [facility] program- Thinking he will need to be dced first to do this- denies anyone from [employer] could retrieve for him. Medication Compliance: Yes Side effects from medications: No Attending Groups: Yes Review of Systems Acute medical concerns: No Medical Review of Systems: unchanged Mental Status Exam Mental Status Exam Patient Appearance: Well Grooomed and Appropriate Patient Orientation: Person, Place, Time and Situation Level of Consciousness: Awake Patient Behavior: Appropriate and Cooperative Mood Description: Apprehensive Affect Description: Calm and Appropriate (full range) Patient Cognition Impaired: No Ability to Follow Directions: Good Speech Pattern: Clear Hallucinations: None Delusions: Not Present Thought Process: Intact Thought Content: positive for Perseveration Judgement: Fair Diagnostics Vital Signs (24Hr): Vital Signs - 24 hr 05/18/24 20:00 05/18/24 20:18 05/19/24 08:00 Temperature 98.4 F 97.9 F Pulse Rate 99 99 62 Respiratory Rate 16 Blood Pressure 140/73 H 140/73 H 131/64 Pulse Oximetry 99 96 Oxygen Delivery Method Room Air Room Air BMI result Body Mass Index 29.4 Labs Labs: Laboratory Results - last 48 hr 05/17/24 20:00 HIV 1&2 Ab/P24 Ag 4thGn Nonreactive Imaging Radiology Impressions: ITS Impressions Upper GI Series 05/18/24 08:30 IMPRESSION: 1. Mild cricopharyngeal achalasia. 2. Mildly disordered esophageal peristalsis. No esophageal stricture or narrowing. 3. Small type I hiatus hernia present. 4. No definite esophageal reflux identified during the course of the examination. Electronically signed by: Phill Granger MD 05/18/2024 10:36 AM EDT RP Medications Medications Current Medications Acetaminophen (Acetaminophen 325 Mg Tablet) 650 mg PO Q6H PRN PRN Reason: Headache/Pain, Scale 1-10 Al Hydroxide/Mg Hydroxide (Magnesium Hydrox/Alum Hydrox 30 Ml Oral.Susp) 30 ml PO Q6H PRN PRN Reason: Heartburn/Nausea Amphetamine/Dextroamphetamine (Amphetamine Mixed Salts 20 Mg Tablet) 20 mg PO 1400,1700 [facility] Last Admin: 05/18/24 16:25 Dose: 20 mg Buprenorphine/Naloxone (Buprenorphine/Naloxone 8/2 Mg Film) 1 film SUBLINGUAL BID [facility] Last Admin: 05/19/24 08:03 Dose: 1 film Clonazepam (Clonazepam 0.5 Mg Tablet) 0.5 mg PO TID PRN PRN Reason: Anxiety Last Admin: 05/18/24 18:52 Dose: 0.5 mg Cyanocobalamin (Cyanocobalamin (Vitamin B-12) 1,000 Mcg Tablet) 1,000 mcg PO DAILY [facility] Last Admin: 05/19/24 08:02 Dose: 1,000 mcg Docusate Sodium (Docusate Sodium 100 Mg Capsule) 100 mg PO BID [facility] Last Admin: 05/19/24 08:02 Dose: 100 mg Escitalopram Oxalate (Escitalopram Oxalate 20 Mg Tablet) 20 mg PO DAILY [facility] Last Admin: 05/19/24 08:03 Dose: 20 mg Folic Acid (Folic Acid 1 Mg Tablet) 1 mg PO DAILY [facility] Last Admin: 05/19/24 08:02 Dose: 1 mg Hydroxyzine HCl (Hydroxyzine Hcl 25 Mg Tablet) 25 mg PO Q6H PRN PRN Reason: mild anxiety Last Admin: 05/15/24 15:25 Dose: 25 mg Lamotrigine (Lamotrigine 25 Mg Tablet) 50 mg PO BID [facility] Last Admin: 05/19/24 08:02 Dose: 50 mg Magnesium Hydroxide (Milk Of Magnesia 30 Ml Oral.Susp) 30 ml PO DAILY PRN PRN Reason: Constipation Nicotine (Nicotine 21 Mg Patch.Td24) 21 mg TRANSDERMA DAILY [facility] Last Admin: 05/19/24 08:06 Dose: Not Given Nicotine Polacrilex (Nicotine Polacrilex 2 Mg Gum) 4 mg BUCCAL Q2H PRN PRN Reason: Nicotine Cravings Last Admin: 05/18/24 21:12 Dose: 4 mg Pt Own Medication ( (Vyvanse 60 Mg)) 60 mg PO DAILY [facility] Last Admin: 05/19/24 08:01 Dose: 60 mg Nystatin (Nystatin Powder 15 Gm Bottle) 1 appl TOPICAL TID [facility]; Protocol Last Admin: 05/19/24 08:06 Dose: Not Given Olanzapine (Olanzapine 5 Mg Tablet) 5 mg PO Q4H PRN PRN Reason: agitation Last Admin: 05/15/24 15:25 Dose: 5 mg Omeprazole (Omeprazole 40 Mg Capsule.Dr) 40 mg PO BID@0630,1630 [facility] Last Admin: 05/19/24 06:16 Dose: 40 mg Polyethylene Glycol (Polyethylene Glycol 3350 17 Gm Powd.Pack) 17 gm PO DAILY PRN PRN Reason: Constipation Propranolol HCl (Propranolol Hcl 10 Mg Tablet) 10 mg PO BID [facility]; Protocol Last Admin: 05/19/24 08:02 Dose: 10 mg Quetiapine Fumarate (Quetiapine Fumarate 200 Mg Tablet) 200 mg PO BEDTIME [facility] Last Admin: 05/18/24 20:18 Dose: 200 mg Sucralfate (Sucralfate Oral Suspension 1 Gm/10 Ml Oral.Susp) 1 gm PO BID [facility] Last Admin: 05/19/24 08:02 Dose: 1 gm Thiamine HCl (Thiamine Hcl 100 Mg Tablet) 100 mg PO DAILY [facility] Last Admin: 05/19/24 08:02 Dose: 100 mg Trazodone HCl (Trazodone Hcl 50 Mg Tablet) 50 mg PO BEDTIME MRX1 PRN PRN Reason: Insomnia Last Admin: 05/18/24 20:17 Dose: 50 mg Allergies Allergies Allergy/AdvReac Type Severity Reaction Status Date / Time No Known Allergies Allergy Verified 04/30/24 19:27 Assessment & Plan Assessment & Plan (1) MDD (major depressive disorder), recurrent episode, severe: Status: Acute Code(s): F33.2 - Major depressive disorder, recurrent severe without psychotic features (2) Opioid use disorder: Status: Acute Code(s): F11.90 - Opioid use, unspecified, uncomplicated (3) Polysubstance (including opioids) dependence with physiological dependence: Status: Acute Code(s): F19.20 - Other psychoactive substance dependence, uncomplicated (4) Grief reaction: Status: Acute Code(s): F43.21 - Adjustment disorder with depressed mood (5) Polysubstance abuse: Status: Acute Code(s): F19.10 - Other psychoactive substance abuse, uncomplicated Plan 05/18/24: DC Lorazepam Klonopin prn Continue tx 05/19 - patient hoping to get dced before CSS; CTP Patient educated on: substance abuse and other Informed Consent: understands and further education needed Reason for continued inpatient stay Substantial Risk for: rapid decompensation Time Spent With Patient Time: Total time managing care of this patient today ____ minutes.
[2024-05-19] MEDS: clonazePAM 0.5 MG TABLET PO ×3 (09:02→20:15)
[2024-05-19] MEDS: Nicotine Polacrilex 2 MG GUM 4 MG BUCCAL ×4 (09:04→19:13)
[2024-05-19] MEDS: Acetaminophen 325 MG TABLET 650 MG PO (09:52)
[2024-05-19] MEDS: Amphetamine Mixed Salts 20 MG TABLET PO ×2 (13:18→16:02)
[2024-05-19] MEDS: Nystatin Powder 15 GM BOTTLE 1 APPL TOPICAL (14:00)
[2024-05-19] MEDS: hydrOXYzine HCL 25 MG TABLET PO (18:41)
[2024-05-19 20:00] VITALS: BP 160/80; PULSE 88; TEMP 36.3; O2SAT 97
[2024-05-19 20:11] VITALS: BP 160/80; PULSE 88
[2024-05-19] MEDS: QUEtiapine Fumarate 200 MG TABLET PO (20:11)
[2024-05-19 21:15] VITALS: BP 141/80
[2024-05-20] MEDS: Omeprazole 40 MG CAPSULE.DR PO ×2 (06:57→16:47)
[2024-05-20 08:00] VITALS: BP 112/55; PULSE 55; RESP 16; TEMP 36.4; O2SAT 96
[2024-05-20] MEDS: Docusate Sodium 100 MG CAPSULE PO ×2 (08:23→21:02)
[2024-05-20] MEDS: Sucralfate Oral Suspension 1 GM/10 ML ORAL.SUSP PO ×2 (08:23→21:01)
[2024-05-20] MEDS: Cyanocobalamin (Vitamin B-12) 1,000 MCG TABLET 1000 MCG PO (08:23)
[2024-05-20] MEDS: Thiamine HCL 100 MG TABLET PO (08:23)
[2024-05-20] MEDS: Folic Acid 1 MG TABLET PO (08:23)
[2024-05-20] MEDS: Escitalopram Oxalate 20 MG TABLET PO (08:23)
[2024-05-20] MEDS: Propranolol HCL 10 MG TABLET PO ×2 (08:24→21:01)
[2024-05-20] MEDS: Buprenorphine/Naloxone 8/2 mg FILM 1 FILM SUBLINGUAL ×2 (08:24→21:02)
[2024-05-20] MEDS: lamoTRIgine 25 MG TABLET 50 MG PO ×2 (08:24→21:02)
[2024-05-20] MEDS: clonazePAM 0.5 MG TABLET PO ×2 (08:40→14:52)
[2024-05-20] MEDS: Nicotine Polacrilex 2 MG GUM 4 MG BUCCAL ×5 (10:04→19:34)
--- NOTE | 2024-05-20 10:42 | HO.PSYCHPN ---
Subjective Subjective Date of Service: 05/20/24 Reason For Visit: INPT, dyphagia, nausea,vomitting Subjective Notes: Conditional Voluntary Healthcare Proxy: No Guardianship: No Medical Problems Affecting Mental Status: No Interim History: 49 yo continues focused on dc and wanting to get his car, wallet and keys- prior to going to any program- denies si, says been in hospital 3 1/2 week and tired of it- referred pt further to Tuesday- and team- Medication Compliance: Yes Side effects from medications: No Attending Groups: Yes Review of Systems Acute medical concerns: No Medical Review of Systems: unchanged Mental Status Exam Mental Status Exam Patient Appearance: Well Grooomed and Appropriate Patient Orientation: Person, Place, Time and Situation Level of Consciousness: Awake Patient Behavior: Appropriate and Cooperative Mood Description: Apprehensive Affect Description: Calm and Appropriate (full range) Patient Cognition Impaired: No Ability to Follow Directions: Good Speech Pattern: Clear Hallucinations: None Delusions: Not Present Thought Process: Intact Thought Content: positive for Perseveration Judgement: Fair Diagnostics Vital Signs (24Hr): Vital Signs - 24 hr 05/19/24 20:00 05/19/24 20:11 05/19/24 21:15 Temperature 97.4 F Pulse Rate 88 88 Respiratory Rate Blood Pressure 160/80 H 160/80 H 141/80 H Pulse Oximetry 97 Oxygen Delivery Method Room Air 05/20/24 08:00 Temperature 97.5 F Pulse Rate 55 Respiratory Rate 16 Blood Pressure 112/55 L Pulse Oximetry 96 Oxygen Delivery Method Room Air BMI result Body Mass Index 29.4 Imaging Radiology Impressions: ITS Impressions Upper GI Series 05/18/24 08:30 IMPRESSION: 1. Mild cricopharyngeal achalasia. 2. Mildly disordered esophageal peristalsis. No esophageal stricture or narrowing. 3. Small type I hiatus hernia present. 4. No definite esophageal reflux identified during the course of the examination. Electronically signed by: Phill Granger MD 05/18/2024 10:36 AM EDT Medications Medications Current Medications Acetaminophen (Acetaminophen 325 Mg Tablet) 650 mg PO Q6H PRN PRN Reason: Headache/Pain, Scale 1-10 Last Admin: 05/19/24 09:52 Dose: 650 mg Al Hydroxide/Mg Hydroxide (Magnesium Hydrox/Alum Hydrox 30 Ml Oral.Susp) 30 ml PO Q6H PRN PRN Reason: Heartburn/Nausea Amphetamine/Dextroamphetamine (Amphetamine Mixed Salts 20 Mg Tablet) 20 mg PO 1400,1700 [facility] Last Admin: 05/19/24 16:02 Dose: 20 mg Buprenorphine/Naloxone (Buprenorphine/Naloxone 8/2 Mg Film) 1 film SUBLINGUAL BID [facility] Last Admin: 05/20/24 08:24 Dose: 1 film Clonazepam (Clonazepam 0.5 Mg Tablet) 0.5 mg PO TID PRN PRN Reason: Anxiety Last Admin: 05/20/24 08:40 Dose: 0.5 mg Cyanocobalamin (Cyanocobalamin (Vitamin B-12) 1,000 Mcg Tablet) 1,000 mcg PO DAILY [facility] Last Admin: 05/20/24 08:23 Dose: 1,000 mcg Docusate Sodium (Docusate Sodium 100 Mg Capsule) 100 mg PO BID [facility] Last Admin: 05/20/24 08:23 Dose: 100 mg Escitalopram Oxalate (Escitalopram Oxalate 20 Mg Tablet) 20 mg PO DAILY [facility] Last Admin: 05/20/24 08:23 Dose: 20 mg Folic Acid (Folic Acid 1 Mg Tablet) 1 mg PO DAILY [facility] Last Admin: 05/20/24 08:23 Dose: 1 mg Hydroxyzine HCl (Hydroxyzine Hcl 25 Mg Tablet) 25 mg PO Q6H PRN PRN Reason: mild anxiety Last Admin: 05/19/24 18:41 Dose: 25 mg Lamotrigine (Lamotrigine 25 Mg Tablet) 50 mg PO BID [facility] Last Admin: 05/20/24 08:24 Dose: 50 mg Magnesium Hydroxide (Milk Of Magnesia 30 Ml Oral.Susp) 30 ml PO DAILY PRN PRN Reason: Constipation Nicotine (Nicotine 21 Mg Patch.Td24) 21 mg TRANSDERMA DAILY [facility] Last Admin: 05/20/24 08:29 Dose: Not Given Nicotine Polacrilex (Nicotine Polacrilex 2 Mg Gum) 4 mg BUCCAL Q2H PRN PRN Reason: Nicotine Cravings Last Admin: 05/20/24 10:04 Dose: 4 mg Pt Own Medication ( (Vyvanse 60 Mg)) 60 mg PO DAILY [facility] Last Admin: 05/20/24 08:23 Dose: 60 mg Nystatin (Nystatin Powder 15 Gm Bottle) 1 appl TOPICAL TID [facility]; Protocol Last Admin: 05/20/24 08:29 Dose: Not Given Olanzapine (Olanzapine 5 Mg Tablet) 5 mg PO Q4H PRN PRN Reason: agitation Last Admin: 05/15/24 15:25 Dose: 5 mg Omeprazole (Omeprazole 40 Mg Capsule.Dr) 40 mg PO BID@0630,1630 [facility] Last Admin: 05/20/24 06:57 Dose: 40 mg Polyethylene Glycol (Polyethylene Glycol 3350 17 Gm Powd.Pack) 17 gm PO DAILY PRN PRN Reason: Constipation Propranolol HCl (Propranolol Hcl 10 Mg Tablet) 10 mg PO BID [facility]; Protocol Last Admin: 05/20/24 08:24 Dose: 10 mg Quetiapine Fumarate (Quetiapine Fumarate 200 Mg Tablet) 200 mg PO BEDTIME [facility] Last Admin: 05/19/24 20:11 Dose: 200 mg Sucralfate (Sucralfate Oral Suspension 1 Gm/10 Ml Oral.Susp) 1 gm PO BID [facility] Last Admin: 05/20/24 08:23 Dose: 1 gm Thiamine HCl (Thiamine Hcl 100 Mg Tablet) 100 mg PO DAILY [facility] Last Admin: 05/20/24 08:23 Dose: 100 mg Trazodone HCl (Trazodone Hcl 50 Mg Tablet) 50 mg PO BEDTIME MRX1 PRN PRN Reason: Insomnia Last Admin: 05/18/24 20:17 Dose: 50 mg Allergies Allergies Allergy/AdvReac Type Severity Reaction Status Date / Time No Known Allergies Allergy Verified 04/30/24 19:27 Assessment & Plan Assessment & Plan (1) MDD (major depressive disorder), recurrent episode, severe: Status: Acute Code(s): F33.2 - Major depressive disorder, recurrent severe without psychotic features (2) Opioid use disorder: Status: Acute Code(s): F11.90 - Opioid use, unspecified, uncomplicated (3) Polysubstance (including opioids) dependence with physiological dependence: Status: Acute Code(s): F19.20 - Other psychoactive substance dependence, uncomplicated (4) Grief reaction: Status: Acute Code(s): F43.21 - Adjustment disorder with depressed mood (5) Polysubstance abuse: Status: Acute Code(s): F19.10 - Other psychoactive substance abuse, uncomplicated Plan 05/18/24: DC Lorazepam Klonopin prn Continue tx 05/19 - patient hoping to get dced before CSS; CTP 05/20 no change ongoing fixation about belongings - CTP Patient educated on: other Informed Consent: further education needed Reason for continued inpatient stay Substantial Risk for: rapid decompensation Time Spent With Patient Time: Total time managing care of this patient today ____ minutes.
[2024-05-20] MEDS: Amphetamine Mixed Salts 20 MG TABLET PO ×2 (13:04→16:47)
[2024-05-20] MEDS: Nystatin Powder 15 GM BOTTLE 1 APPL TOPICAL (14:56)
[2024-05-20 20:00] VITALS: BP 166/96; PULSE 90; TEMP 37.6; O2SAT 99
[2024-05-20 21:01] VITALS: BP 166/96; PULSE 90
[2024-05-20] MEDS: QUEtiapine Fumarate 200 MG TABLET PO (21:01)
[2024-05-21] MEDS: Omeprazole 40 MG CAPSULE.DR PO (06:37)
[2024-05-21 08:00] VITALS: BP 117/58; PULSE 64; RESP 16; TEMP 36.6; O2SAT 97
[2024-05-21] MEDS: lamoTRIgine 25 MG TABLET 50 MG PO (08:28)
[2024-05-21] MEDS: Buprenorphine/Naloxone 8/2 mg FILM 1 FILM SUBLINGUAL (08:28)
[2024-05-21] MEDS: Propranolol HCL 10 MG TABLET PO (08:29)
[2024-05-21] MEDS: Escitalopram Oxalate 20 MG TABLET PO (08:29)
[2024-05-21] MEDS: Folic Acid 1 MG TABLET PO (08:29)
[2024-05-21] MEDS: Thiamine HCL 100 MG TABLET PO (08:29)
[2024-05-21] MEDS: Docusate Sodium 100 MG CAPSULE PO (08:29)
[2024-05-21] MEDS: Cyanocobalamin (Vitamin B-12) 1,000 MCG TABLET 1000 MCG PO (08:29)
[2024-05-21] MEDS: Sucralfate Oral Suspension 1 GM/10 ML ORAL.SUSP PO (08:29)
[2024-05-21] MEDS: clonazePAM 0.5 MG TABLET PO (08:55)
[2024-05-21] MEDS: Nicotine Polacrilex 2 MG GUM 4 MG BUCCAL (08:55)
[2024-05-21] MEDS: Amphetamine Mixed Salts 20 MG TABLET PO (13:16)
--- NOTE | 2024-05-21 17:22 | P.DS_ITS ---
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 Has provider been notified: No Attending physician on discharge: Preston Mock Discharging clinician: Jennifer Peck DS: Diagnosis Discharge Diagnosis (1) MDD (major depressive disorder), recurrent episode, severe: Status: Acute (2) Opioid use disorder: Status: Acute (3) Polysubstance (including opioids) dependence with physiological dependence: Status: Acute (4) Grief reaction: Status: Inactive (5) Polysubstance abuse: Status: Deleted DS: Medications Discharge Medications Home Medications: Previous Rx's ?Medication ?Instructions ?Recorded lisdexamfetamine 60 mg capsule 60 mg PO DAILY #30 caps 05/15/24 (Vyvanse) Vyvanse 60 mg PO DAILY ##0 05/21/24 acetaminophen 325 mg tablet 650 mg (2 x 325 mg) PO Q6H PRN 05/21/24 Headache/Pain, Scale 1-10 #0 tabs buprenorphine 8 mg-naloxone 2 mg 1 film sublingual BID #4 ea 05/21/24 sublingual film (Suboxone) clonazepam 0.5 mg tablet 0.5 mg PO TID PRN Anxiety #7 tabs 05/21/24 cyanocobalamin (vitamin B-12) 1,000 mcg PO DAILY #7 tabs 05/21/24 1,000 mcg tablet (Vitamin B-12) docusate sodium 100 mg capsule 100 mg PO BID #14 caps 05/21/24 escitalopram oxalate 20 mg tablet 20 mg PO DAILY #7 tabs 05/21/24 folic acid 1 mg tablet 2 mg (2 x 1 mg) PO DAILY #14 tabs 05/21/24 lamotrigine 25 mg tablet 50 mg (2 x 25 mg) PO BID #28 tabs 05/21/24 nicotine (polacrilex) 2 mg gum 2 mg buccal Q2H PRN Nicotine 03/31/25 Cravings #20 ea omeprazole 40 mg capsule,delayed 40 mg PO BID@0630,1630 #14 caps 05/21/24 release polyethylene glycol 3350 17 gram 17 g PO DAILY PRN Constipation #14 05/21/24 oral powder packet ea propranolol 10 mg tablet 10 mg PO BID #14 tabs 05/21/24 quetiapine 200 mg tablet 200 mg PO BEDTIME #7 tabs 05/21/24 sucralfate 100 mg/mL oral 1 g (10 mL) PO BID #414 mL 05/21/24 suspension thiamine mononitrate (vit B1) 100 100 mg PO DAILY #7 tabs 05/21/24 mg tablet trazodone 50 mg tablet 50 mg PO BEDTIME MRX1 PRN Insomnia 05/21/24 #7 tabs Mental Status Exam Mental Status Exam Patient Appearance: Well Grooomed and Appropriate Patient Orientation: Person, Place, Time and Situation Level of Consciousness: Awake Patient Behavior: Appropriate and Cooperative Mood Description: Apprehensive Affect Description: Calm and Appropriate (full range) Patient Cognition Impaired: No Ability to Follow Directions: Good Speech Pattern: Clear Hallucinations: None Delusions: Not Present Thought Process: Intact Thought Content: positive for Perseveration Judgement: Fair Data Data Completed and Pending Completed studies during hospitalization [Text1]: 05/17/24 20:00 HIV 1&2 Ab/P24 Ag 4thGn Nonreactive Imaging Diagnostic Imaging Impressions Upper GI Series 05/18/24 08:30 IMPRESSION: 1. Mild cricopharyngeal achalasia. 2. Mildly disordered esophageal peristalsis. No esophageal stricture or narrowing. 3. Small type I hiatus hernia present. 4. No definite esophageal reflux identified during the course of the examination. Electronically signed by: Phill Granger MD 05/18/2024 10:36 AM EDT DS: Summary Hospital Course Hospital Course: First admission to adult psychiatry. Pt found in community with PCP OD, polysubstance injestion in a suicide attempt. Pt is s/p medical transfer where he had a difficult detox with seizure, sepsis, intubation and ICU care. Pt with a hx of recurrent major depression, opiate use disorder, polysubstance use disorder and alcohol use disorder. Also grief reaction as mother last week of ALS. Medications were evaluated and retitrated. Pt was able to participate in the milieu and work with the team on CSS admission processes. At the end of this admission, pt changed his mind, deciding to leave the hospital, retrieve his vehicle and travel to [place] to stay with a family friend. Family was supportive of this, giving him money and clothing to move forward. [facility] gave a tentative acceptance for CSS and pt reported he would follow up for admission from the community on 05/22/24. Medications were partially filled due to pt's not going directly to program. He declined Narcan Rx as he reports he has a supply if needed. Pt plans to follow up with [facility] G[facility]enterology and will schedule his own appt with them post discharge for testing and follow up. Status at Discharge Functional status at discharge: independent ambulation Overall status at discharge: patient is progressing back to baseline Time Spent with Patient Time attestation: Total time managing care of this patient today ____ minutes. Time spent: Less than 30 minutes Discharge Plan Discharge Anticipated Discharge Date/Time: 05/21/24 14:00 Patient Disposition: Home, Self-Care Discharge Diagnosis: Recurrent Major Depression Opiate use disorder Polysubstance Use Disorder Alcohol Use Disorder Dysphagia Referrals: [facility] CSS [Other] - Tomorrow (Referral for substance abuse treatment program Patient should follow-up daily after discharge regarding referral with goal of admission from the community.) [facility] [Other] - 1 Week (Referral to substance abuse treatment program Patient should follow-up on referral after discharge.) [facility] [Other] - 1 Week (Referral for substance abuse treatment program you are on the wait list for CSS 6-8 weeks wait. Call daily to follow-up and advocate for treatment.) [facility]: Suboxone [Other] - Tomorrow (Follow-up with medication assisted treatment program ([facility])) [facility] [Other] - 1 Week (Referral for substance use treatment program Declined from admission due to concerns of mental health/SI) Physician,Unknown J [Primary Care Provider] - 1 Week Discharge Medications: New lisdexamfetamine [Vyvanse] 60 mg capsule 60 mg PO DAILY Qty: 30 0RF Rx Instructions: Partial Fill upon patient request. acetaminophen 325 mg Tablet 650 mg PO Q6H PRN (Reason: Headache/Pain, Scale 1-10) Qty: 0 0RF trazodone 50 mg Tablet 50 mg PO BEDTIME MRX1 PRN (Reason: Insomnia) Qty: 7 0RF clonazepam 0.5 mg Tablet 0.5 mg PO TID PRN (Reason: Anxiety) Qty: 7 0RF escitalopram oxalate 20 mg Tablet 20 mg PO DAILY Qty: 7 0RF omeprazole 40 mg Capsule,Delayed Release(Dr/Ec) 40 mg PO BID@0630,1630 Qty: 14 0RF Continued polyethylene glycol 3350 17 gram Powder In Packet 17 g PO DAILY PRN (Reason: Constipation) Qty: 14 0RF nicotine (polacrilex) 2 mg Gum 2 mg buccal Q2H PRN (Reason: Nicotine Cravings) Qty: 20 0RF lamotrigine 25 mg Tablet 50 mg PO BID Qty: 28 0RF docusate sodium 100 mg Capsule 100 mg PO BID Qty: 14 0RF folic acid 1 mg Tablet 2 mg PO DAILY Qty: 14 0RF Discontinued cyanocobalamin (vitamin B-12) [Vitamin B-12] 1,000 mcg Tablet 1,000 mcg PO DAILY Qty: 1 0RF nicotine 21 mg/24 hr Patch 24 Hour 21 mg transdermal DAILY Qty: 7 0RF Patient Comments: patient does not want to use Nicotine patch lorazepam 1 mg Tablet 1 mg PO Q6H PRN (Reason: Anxiety) Qty: 1 0RF thiamine mononitrate (vit B1) 100 mg Tablet 300 mg PO DAILY Qty: 1 0RF quetiapine 200 mg tablet 200 mg PO BEDTIME buprenorphine-naloxone [Suboxone] 8-2 mg film 1 film sublingual BID No Action sucralfate 100 mg/mL suspension 10 ml PO BID quetiapine 200 mg tablet 200 mg PO BEDTIME cyanocobalamin (vitamin B-12) 1,000 mcg tablet 1,000 mcg PO DAILY thiamine HCl (vitamin B1) 100 mg tablet 100 mg PO DAILY propranolol 10 mg tablet 10 mg PO BID buprenorphine-naloxone [Suboxone] 8-2 mg film 1 film sublingual BID Discharge Orders: Discharge Order (Routine); Ordered 05/21/24 Ordered By: Jennifer Peck Diet: Advance to usual diet Activity on Discharge: As tolerated Stand Alone Forms: Patient Portal Discharge page, Community Support Print Language: Kazakh Care Plan Goals: Abstinence from substances Mood and Behavioral Stabilization Health Concerns: Abstinence from substances Mood and Behavioral Stabilization Plan of Treatment: Pt requesting discharge today. [facility] acceptance is pending administrative review. Pt may proceed with a [facility] admission from the community Family has given pt money and clothing so he may go to [place] to stay with mother's partner. Pt will retrieve his vehicle today He is also looking at treatment centers in [place]. He is considering the [facility] program as well as [facility]. Call for an appointment with [facility] Gastroenterology [phone] Assessment: Denies SI,HI,AH,VH No sx of acute psychosis or isíaas Pt declines continued stay and direct transfer to rehab Discharge Date/Time: 05/21/24 14:05
== END 2024-05-21 14:05 | disposition home or self-care (01) | DRG 751 ==
PROVIDERS: Internal Medicine Gastroenterology; Admitting Provider Clinical Nurse Specialist Psychiatric/Mental Health, Adult; Visit Provider Clinical Nurse Specialist Psychiatric/Mental Health, Adult
DX: F33.2 Major depressive disorder, recurrent severe without psychotic features (principal); R13.10 Dysphagia, unspecified; F14.20 Cocaine dependence, uncomplicated; F11.20 Opioid dependence, uncomplicated; F17.210 Nicotine dependence, cigarettes, uncomplicated; F19.20 Other psychoactive substance dependence, uncomplicated; F10.20 Alcohol dependence, uncomplicated; F43.21 Adjustment disorder with depressed mood; Z63.4 Disappearance and death of family member; Z71.6 Tobacco abuse counseling; Z79.899 Other long term (current) drug therapy
CPT/HCPCS: 36415; 74240; 87389; 93005

== ENCOUNTER → 2024-05-14 13:07 | Outpatient (BNV) | payer OTHER, SELFPAY | PROVIDERS: Admitting Provider Clinical Nurse Specialist Psychiatric/Mental Health, Adult; Visit Provider Clinical Nurse Specialist Psychiatric/Mental Health, Adult | DX: F33.2 Major depressive disorder, recurrent severe without psychotic features (principal); F11.90 Opioid use, unspecified, uncomplicated; F19.20 Other psychoactive substance dependence, uncomplicated; F10.20 Alcohol dependence, uncomplicated; F43.21 Adjustment disorder with depressed mood | CPT/HCPCS: 90792 ==

== ENCOUNTER → 2024-05-14 13:07 | Outpatient (BNV) | payer OTHER, SELFPAY | PROVIDERS: Admitting Provider Clinical Nurse Specialist Psychiatric/Mental Health, Adult; Visit Provider Internal Medicine Gastroenterology | DX: R13.10 Dysphagia, unspecified (principal) | CPT/HCPCS: 99223 ==

== ENCOUNTER 2024-05-22 04:28 | Inpatient (IN) | payer MEDICAID, SELFPAY ==
[2024-05-22 04:30] VITALS: BP 138/85; PULSE 87; RESP 18; TEMP 36.9; O2SAT 98; BMI 26.3
--- NOTE | 2024-05-22 04:36 | ECG_ITS ---
Test Reason : druge use Blood Pressure : */* mmHG Vent. Rate : 76 BPM Atrial Rate : 76 BPM P-R Int : 140 ms QRS Dur : 80 ms QT Int : 410 ms P-R-T Axes : 19 -5 16 degrees QTcB Int : 461 ms Normal sinus rhythm Inferior infarct , age undetermined Cannot rule out Anterior infarct (cited on or before 19-Apr-2024) Abnormal ECG When compared with ECG of 14-May-2024 15:50, No significant changes seen Referred By: Generic ED Physician Electronically Signed By: RAYO MCCORMACK
[2024-05-22 04:59] LABS: MANUAL DIFF FLAG NO
[2024-05-22 05:01] LABS: Basophils Absolute Auto 0.1 X10*3/uL (0.0-0.2); Basophils Percent Auto 0.7 % (0-2); Eosinophils Percent Auto 0.2 % (0-4); Hematocrit 38.6 % (42.0-52.0); Hemoglobin 12.5 g/dl (14.0-18.0); Imm Gran Abs Auto 0.08 X10*3/uL (0.00-0.03); Imm Gran Pct Auto 0.6 % (0.0-0.4); Lymphocytes Absolute Auto 1.5 X10*3/uL (1.2-4.9); Lymphocytes Percent Auto 10.6 % (20-40); Mean Corpuscular HGB Conc 32.4 g/dl (31.0-36.0); Mean Corpuscular Volume 83.4 fL (80.0-98.0); Mean Platelet Volume 9.1 fL (9.4-12.4); Monocytes Absolute Auto 0.7 X10*3/uL (0.1-1.2); Neutrophils Absolute Auto 11.9 x10*3/uL (2.0-8.3); Neutrophils Percent Auto 82.9 % (45-73); Platelet Count 489 X10*3/uL (160-400); Red Blood Count 4.63 X10*6/uL (4.60-5.80); Red Cell Distribution Width 14.4 % (11.0-16.0); White Blood Count 14.3 X10*3/uL (4.8-10.8)
[2024-05-22 05:14] LABS: COVID-19 Test Negative (Negative); IDNOW Serial# 6674DD1D
[2024-05-22 05:24] LABS: Alanine Aminotransferase 19 U/L (0-40); Albumin Level 4.1 g/dL (3.5-5.0); Alkaline Phosphatase 132 U/L (39-117); Anion Gap 18 (12-20); Aspartate Amino Transferase 28 U/L (5-37); Bilirubin Total 0.3 mg/dL (0.0-1.0); Blood Urea Nitrogen 18 mg/dL (9-16); Calcium 9.3 mg/dL (8.4-10.2); Carbon Dioxide 22 mmol/L (22-29); Chloride 105 mmol/L (96-108); Creatinine Clr Calc Pharmacy 127.6; Estimated Glomerular Filt Rate > 60; Ethanol < 10 mg/dL; Glucose Random 101 mg/dL (60-115); Potassium 3.8 mmol/L (3.3-5.1); Sodium 141 mmol/L (135-145); Total Protein 8.4 g/dL (6.5-8.0)
[2024-05-22 05:26] LABS: Amphetamine Screen Urine POSITIVE (Not Detect); Barbiturates, Urine POSITIVE (Not Detect); Benzodiazepines Screen Urine Not Detected (Not Detect); Buprenorphine Scr Positive (Not Detect); Cannabinoid Screen Urine Not Detected (Not Detect); Cocaine Screen Urine POSITIVE (Not Detect); Fentanyl, urine Not Detected (Not Detect); Methadone Screen, Urine Not Detected (Not Detect); Opiate Screen Urine Not Detected (Not Detect); Oxycodone Screen Urine Not Detected (Not Detect); Phencyclidine Screen Urine Not Detected (Not Detect)
--- NOTE | 2024-05-22 08:08 | PC.NURSE ---
pt awake/alert pt has c/o nausea and withdrawal symptoms. notified provider, tech to obtain vitals.
[2024-05-22 08:12] VITALS: BP 137/67; PULSE 75; RESP 16; TEMP 36.3; O2SAT 95
[2024-05-22] MEDS: LORazepam 1 MG TABLET PO (08:43)
--- NOTE | 2024-05-22 08:46 | PC.NURSE ---
patient scored 15 on ciwa, provider was notified, pt to be moved to ED 22 for closer monitoring. additionally, patient was medicated with 1mg ativan.
--- NOTE | 2024-05-22 08:49 | ED_ITS ---
HPI - General Adult General Chief complaint: Psychiatric Symptoms Stated complaint: SI Time Seen by Provider: 05/22/24 08:04 Source: patient Mode of arrival: ambulatory Limitations: no limitations History of Present Illness ED Provider: JULIANNE OLIVER PA-C HPI narrative: 49 year old male with pmhx significant for polysubstance use disorder (opioids, cocaine), etoh use disorder, mood disorder presents to the ED today for evaluation of SI with plan to OD on all home medications. Denies HI. Denies attempt prior to arrival. Patient was admitted to our facility from 04/30 - 05/21 after presenting following an overdose. He was admitted to the medical floor however following acute decompensation d/t multiple seizures he was transferred to the ICU. He was eventually down graded to the medical floor and admitted to the inpatient psych unit. He was discharged yesterday 05/21/24. He reports binge drinking etoh after being discharge from our facility yesterday morning. Admits to consuming an entire quart of hard liquor after weeks of not consuming alcohol. His last drink was approximately 8 hours ago. States he did not brain picker his prescriptions from the pharmacy. He last had his suboxone and klonopin yesterday morning. Admits to using crack cocaine. Denies other illicit substance use. He reports feeling as though he is in withdrawal. Admits to all over body aches and nausea. He denies any other physical complaints. He does not believe he has had a seizure since being discharged from our facility. History etoh withdrawal and withdrawal seizures. Denies AH//TH. Related Data Home Medications ?Medication ?Instructions ?Recorded ?Confirmed buprenorphine 8 mg-naloxone 2 mg 1 film sublingual BID 05/22/24 05/22/24 sublingual film (Suboxone) cyanocobalamin (vitamin B-12) 1,000 mcg PO DAILY 05/22/24 05/22/24 1,000 mcg tablet propranolol 10 mg tablet 10 mg PO BID 05/22/24 05/22/24 quetiapine 200 mg tablet 200 mg PO BEDTIME 05/22/24 05/22/24 sucralfate 100 mg/mL oral 10 ml PO BID 05/22/24 05/22/24 suspension thiamine HCl (vitamin B1) 100 mg 100 mg PO DAILY 05/22/24 05/22/24 tablet Previous Rx's ?Medication ?Instructions ?Recorded lisdexamfetamine 60 mg capsule 60 mg PO DAILY #30 caps 05/15/24 (Vyvanse) acetaminophen 325 mg tablet 650 mg (2 x 325 mg) PO Q6H PRN 05/21/24 Headache/Pain, Scale 1-10 #0 tabs clonazepam 0.5 mg tablet 0.5 mg PO TID PRN Anxiety #7 tabs 05/21/24 docusate sodium 100 mg capsule 100 mg PO BID #14 caps 05/21/24 escitalopram oxalate 20 mg tablet 20 mg PO DAILY #7 tabs 05/21/24 folic acid 1 mg tablet 2 mg (2 x 1 mg) PO DAILY #14 tabs 05/21/24 lamotrigine 25 mg tablet 50 mg (2 x 25 mg) PO BID #28 tabs 05/21/24 nicotine (polacrilex) 2 mg gum 2 mg buccal Q2H PRN Nicotine 05/21/24 Cravings #20 ea omeprazole 40 mg capsule,delayed 40 mg PO BID@0630,1630 #14 caps 05/21/24 release polyethylene glycol 3350 17 gram 17 g PO DAILY PRN Constipation #14 05/21/24 oral powder packet ea trazodone 50 mg tablet 50 mg PO BEDTIME MRX1 PRN Insomnia 05/21/24 #7 tabs Allergies Allergy/AdvReac Type Severity Reaction Status Date / Time No Known Allergies Allergy Verified 05/22/24 04:34 Review of Systems 2 Review of Systems: Yes all other systems are reviewed and are negative PMFSH Past Medical History Attestation statement: The following information was validated with the patient. Source: old records reviewed and nursing notes reviewed Medical History Dysphagia Grief reaction History of suicidal ideation Cocaine use disorder, moderate, dependence Opioid use disorder Mood disorder Social History Social History Household Members: None Housing: Homeless Do you presently have visiting nurse or other home services: No Alcohol intake: current Comment: Sitter Patient Tobacco Use Status: Current everyday Tobacco user Tobacco use type: Cigarette Cigarette Packs Per Day: 2 Cigarettes Per Day: 40.0 e-Cigarette/Vaping Use: Never Used Second Hand Smoke Exposure: No Substance Use Type: Crack/Cocaine, Heroin and Marijuana Advance Directives: No Advance Directives Information Provided: Yes Do you have a plan to hurt others: No Plan service: No Sexual orientation: Straight/Heterosexual Physical Exam ED Vital Signs: Vital Signs - 24 hr 05/22/24 04:30 05/22/24 08:12 Temperature 98.4 F 97.4 F Pulse Rate 87 75 Respiratory Rate 18 16 Blood Pressure 138/85 137/67 Pulse Oximetry 98 95 Oxygen Delivery Method Room Air Room Air BMI result Body Mass Index 26.3 Vital signs stable General: well appearing Skin: Warm, dry, intact. No rashes or lesions. Head: Normocephalic, atraumatic. EENT: Hearing is intact b/l. Conjunctiva clear. Sclera is anicteric. PERRLA. EOM intact. Moist mucous membranes.? Neck: Supple without LAD. FROM. Trachea midline.? Cardiac: Chest wall symmetric. RRR. Lungs: Normal respiratory effort without accessory muscle use. CTA bilaterally. Abdomen: Soft, non-tender, non-distended. No rebound tenderness or guarding. Positive BS x4. Back: No midline spinous or paraspinal tenderness. No step off deformity. Ext: Upper and lower extremities atraumatic, without tenderness, deformity, swelling or erythema. Full ROM throughout Neuro: AOx3. Normal speech. tremulous. no asterisks or tongue fasciculations. CN 2-12 grossly intact. Strength 5/5 intact throughout. Sensation intact to light touch. Ambulating with steady gait. Psych: Appropriate mood and affect. Responds appropriately to questions. Course Course Course Narrative: 912 -- patient initially in pod on my arrival. my initial evaluation began approx 3 hours after patient's arrival in ED. I immediately had concern for etoh withdrawl. PO ativan ordered. RN then informed me that patient's CIWA was 15. 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 Phenobarb protocol ordered. > cbc showing leukocytosis to 14.3 with left shift. upward trending since last CBC on 05/10/24. unclear if this is secondary to acute withdrawal - he is unsure of any seizures prior to presentation. normocytic anemia, chronic and stable when compared to priors. chemistry without acute electrolyte abnormality requiring intervention. BUN slightly elevated to 18 with normal creatinine. initially concerned for rhabdo however cpk only slightly elevated to 179. IVF ordered. urine toxicology positive for buprenorphine, barbiturates, amphetamines, cocaine. Ethanol undetectable. > will add on EKG, UA > anticipate admission to medicine for etoh withdrawal Medications Administered Generic Name Dose Route Start Last Admin Trade Name Freq PRN Reason Stop Dose Admin Enoxaparin Sodium 40 mg 05/22/24 10:15 05/22/24 10:25 Enoxaparin Sodium 40 Mg/0.4 Ml Syringe SUBCUT 40 mg Q24H MARIANN Administration Folic Acid 1 mg/ Sodium 50.2 mls @ 100.4 mls/hr 05/22/24 10:15 05/22/24 11:53 Chloride IV 05/24/24 09:29 100.4 mls/hr DAILY MARIANN Administration Thiamine HCl 100 mg/ Sodium 101 mls @ 202 mls/hr 05/22/24 10:15 05/22/24 11:02 Chloride IV Infused DAILY MARIANN Infusion Lactated Ringer's 1,000 mls @ 125 mls/hr 05/22/24 10:30 05/22/24 11:53 Lr IVCONT 125 mls/hr .Q8H MARIANN Administration Discontinued Medications Generic Name Dose Route Start Last Admin Trade Name Freq PRN Reason Stop Dose Admin Sodium Chloride 1,000 mls @ 999 mls/hr 05/22/24 09:15 05/22/24 09:50 Ns IV 05/22/24 10:15 999 mls/hr .Q1H1M MARIANN Administration Lorazepam 1 mg 05/22/24 08:34 05/22/24 08:43 Lorazepam 1 Mg Tablet PO 05/22/24 08:35 1 mg ONCE ONE Administration Phenobarbital Sodium 284 mg 05/22/24 09:00 05/22/24 10:14 Phenobarbital Sodium 130 Mg/Ml Im Once IM 05/22/24 09:01 Not Given ONCE ONE Protocol Phenobarbital Sodium 424 mg 05/22/24 10:00 05/22/24 10:25 Phenobarbital Sodium 130 Mg/Ml Im Once IM 05/22/24 10:01 424 mg ONCE ONE Administration Medical Decision Making Medical Decision Making MDM Narrative: 49 year old male with pmhx significant for polysubstance use disorder (opioids, cocaine), etoh use disorder, mood disorder presents to the ED today for evaluation of SI with plan to OD on all home medications. vital signs stable. Afebrile. he is generally well appearing. AOx3. Normal speech. tremulous. no asterisks or tongue fasciculations. CN 2-12 grossly intact. Strength 5/5 intact throughout. Sensation intact to light touch. Ambulating with steady gait. Differential diagnosis includes etoh abuse vs withdrawal vs intoxication, anemia, electrolyte abnormality, dehydration, rhabdo, polysubstance abuse, SI Plan for labs, UA, UDS, EKG Differential Diagnosis Differential Diagnoses: The differential diagnosis associated with the presentation includes as above. Admission/Observation Consideration of admission/observation: Escalation of care including admission/observation considered patient admitted to medicine for acute etoh withdrawal requiring phenobarb Consult Healthcare Provider Management of the patient was discussed with: Hospitalist (dr. madison) Lab Data MDM Lab Attestation statement: I reviewed the patient's lab results. as above. 05/22/24 04:52 05/22/24 04:52 Labs: Lab Results 05/22/24 05/22/24 05/22/24 Range/Units 04:44 04:52 05:06 WBC 14.3 H (4.8-10.8) X10*3/uL RBC 4.63 (4.60-5.80) X10*6/uL Hgb 12.5 L (14.0-18.0) g/dl Hct 38.6 L (42.0-52.0) % MCV 83.4 (80.0-98.0) fL MCH 27.0 (27.0-33.0) pg MCHC 32.4 (31.0-36.0) g/dl RDW 14.4 (11.0-16.0) % Plt Count 489 H (160-400) X10*3/uL MPV 9.1 L (9.4-12.4) fL Immature Gran % (Auto) 0.6 H (0.0-0.4) % Neut % (Auto) 82.9 H (45-73) % Lymph % (Auto) 10.6 L (20-40) % [place] % (Auto) 5.0 (2-11) % Eos % (Auto) 0.2 (0-4) % Baso % (Auto) 0.7 (0-2) % Lymph # (Auto) 1.5 (1.2-4.9) X10*3/uL [place] # (Auto) 0.7 (0.1-1.2) X10*3/uL Eos # (Auto) 0.0 (0.0-0.4) X10*3/uL Baso # (Auto) 0.1 (0.0-0.2) X10*3/uL Abs Immat Gran (auto) 0.08 H (0.00-0.03) X10*3/uL Absolute Neuts (auto) 11.9 H (2.0-8.3) x10*3/uL Absolute Nucleated RBC 0.000 (0.0-0.012) X10*3/uL Nucleated RBC % (auto) 0.0 (0.0-0.2) /100WBC Sodium 141 (135-145) mmol/L Potassium 3.8 (3.3-5.1) mmol/L Chloride 105 (96-108) mmol/L Carbon Dioxide 22 (22-29) mmol/L Anion Gap 18 (12-20) BUN 18 H (9-16) mg/dL Creatinine 0.70 (0.5-1.4) mg/dL Estim Creat Clear Calc 127.6 Estimated GFR > 60 Random Glucose 101 (60-115) mg/dL Calcium 9.3 (8.4-10.2) mg/dL Total Bilirubin 0.3 (0.0-1.0) mg/dL AST 28 (5-37) U/L ALT 19 (0-40) U/L Alkaline Phosphatase 132 H (39-117) U/L Total Creatine Kinase 179 H (38-174) U/L Total Protein 8.4 H (6.5-8.0) g/dL Albumin 4.1 (3.5-5.0) g/dL Urine Opiates Screen Not Detected (Not Detect) Ur Buprenorphine Scrn Positive H (Not Detect) ng/mL Ur Oxycodone Screen Not Detected (Not Detect) ng/mL Urine Methadone Screen Not Detected (Not Detect) ng/mL Urine Fentanyl Screen Not Detected (Not Detect) Ur Barbiturates Screen POSITIVE H (Not Detect) Ur Phencyclidine Scrn Not Detected (Not Detect) Ur Amphetamines Screen POSITIVE H (Not Detect) U Benzodiazepines Scrn Not Detected (Not Detect) Urine Cocaine Screen POSITIVE H (Not Detect) U Marijuana (THC) Screen Not Detected (Not Detect) Ethyl Alcohol < 10 mg/dL COVID-19 ([facility]) Negative (Negative) COVID-19 Clin Com See Note Independent Interpretation I performed an independent interpretation of an: EKG Interpretation: EKG showing normal sinus rhythm, rate of 76 beats per minute, QT 410, QTC 461 External Record Review External record reviewed: Inpatient record Prescription Management I considered prescription management with: Pain Medication Chronic Conditions Patient?s care impacted by: Other (ETOH use disorder, polysubstance abuse) Social Determinants Patient?s care significantly limited by Social Determinants of Health including: Other Social Determinant of Health Critical Care Time Critical Care Time Critical Care Time: Yes Total Critical Care Time: 35 Attestation: Critical care time in the amount of 35 minutes has been provided to the patient in terms of direct patient care, frequent reevaluation, consultation with hospitalist, review and interpretation of medical data and results, and management of potentially life-threatening conditions. This is all outside of any medical procedures. Discharge Plan Discharge Clinical Impression: Suicidal ideation, Alcohol withdrawal Patient Disposition: Admitted As Inpatient Interventions: [place]-Suicide Risk Severity Scale Last Done: 05/22/24 06:01
[2024-05-22] MEDS: 0.9 % Sodium Chloride 1,000 ML 999 ML IV (09:50)
--- NOTE | 2024-05-22 09:53 | PC.NURSE ---
hospitalist met with patient, changing phenobarb dose at this time, awaiting orders. IV established, fluids infusing. patient observer is at bedside for patient safety.
--- NOTE | 2024-05-22 10:03 | PHA.MEDREC ---
Pharmacy Consult ? Medication Reconciliation Pharmacy has completed the medication reconciliation. Utilized discharge packet from yesterday 05/21.
--- NOTE | 2024-05-22 10:08 | PM.IMHP ---
History of Present Illness Date of Service: 05/22/24 <YURIDIA Pereira - Last Filed: 05/22/24 10:40> Attending physician on admission: Norris Ogden <YURIDIA Pereira - Last Filed: 05/22/24 10:40> Chief Complaint: si. intoxication <YURIDIA Pereira - Last Filed: 05/22/24 10:40> 49-year-old male with history of alcohol use disorder, severe alcohol withdrawal with seizures, polysubstance abuse/IVDA, and major depressive disorder presented to the ED this morning after relapsing on substances which he reports was a suicide attempt. He was recently admitted 04/20-04/25 and from 04/30-05/14 in alcohol withdrawal and and seizures. The most recent admission, he was discharged to Psychiatry due to SI and was discharged yesterday. During the most recent admission, he did require ICU care due to multiple seizures and required intubation. He was successfully extubated and moved to the medical floors where he was seen and evaluated by care team who recommended psychiatric admission. The patient reports after he was discharged yesterday he was still feeling depressed and drank a qt of vodka along with smoking crack cocaine, and injecting IV cocaine as another suicide attempt. He has not had any further since arrival but is currently in active withdrawal. He is reporting a significant headache, nausea, vomiting, anxiety/agitation, tremors, hot flashes/sweats, and low back pain. He is also reporting some confusion which he describes as fussiness. He is oriented x3. He denies any AH or VH. Sitter is present in room. He is also reporting dark urine but no dysuria or increased urinary frequency. He does not recall much of the evening or infrastructure consultant due to intoxication. Since arrival, vital signs have been stable. He has a leukocytosis of 14.3. Renal function electrolyte levels are normal. Total CK 179. Urine tox screen positive for buprenorphine, barbiturates, amphetamines, and cocaine. Ethyl alcohol level undetectable. In the ED, he was given 1 mg lorazepam and 1 L IV fluids. <YURIDIA Pereira - Last Filed: 05/22/24 10:40> Review of Systems Review of Systems: Yes all other systems are reviewed and are negative <YURIDIA Pereira Last Filed: 05/22/24 10:40> [facility] Medical History: Medical History Dysphagia Grief reaction History of suicidal ideation Cocaine use disorder, moderate, dependence Opioid use disorder Mood disorder <YURIDIA Pereira - Last Filed: 05/22/24 10:40> Social History: Social History Household Members: None Housing: Homeless Do you presently have visiting nurse or other home services: No Alcohol intake: current Alcohol intake frequency: 3 or more drinks per day Comment: Sitter Patient Tobacco Use Status: Current everyday Tobacco user Tobacco use type: Cigarette Cigarette Packs Per Day: 2 Cigarettes Per Day: 40.0 Smoked in Last 30 Days: Yes e-Cigarette/Vaping Use: Never Used Second Hand Smoke Exposure: No Use of substances other than those prescribed or required for medical reasons: Yes Substance Use Type: Crack/Cocaine Advance Directives: No Advance Directives Information Provided: Yes Do you have a plan to hurt others: No Plan service: No Sexual orientation: Straight/Heterosexual <YURIDIA Pereira - Last Filed: 05/22/24 10:40> Meds Allergies/Adverse reactions: Allergies Allergy/AdvReac Type Severity Reaction Status Date / Time No Known Allergies Allergy Verified 05/22/24 04:34 <YURIDIA Pereira - Last Filed: 05/22/24 10:40> Active Medications: Current Medications Sodium Chloride (Ns) 1,000 mls @ 999 mls/hr IV .Q1H1M MARIANN Stop: 05/22/24 10:15 Last Admin: 05/22/24 09:50 Dose: 999 mls/hr Pharmacy Consult (Consult Rx Etoh Phenob Im/Po) 1 each MISCELLANE ONCE PRN; Protocol PRN Reason: Consult order Phenobarbital (Phenobarbital 15 Mg Tablet) 45 mg PO BID MARIANN; Protocol Stop: 05/24/24 09:01 Phenobarbital (Phenobarbital 30 Mg Tablet) 30 mg PO BID MARIANN; Protocol Stop: 05/26/24 09:01 Phenobarbital (Phenobarbital 30 Mg Tablet) 30 mg PO DAILY MARIANN; Protocol Stop: 05/27/24 09:01 Phenobarbital Sodium (Phenobarbital Sodium 130 Mg/Ml Vial Im Q3hx2) 318 mg IM Q3H MARIANN Stop: 05/22/24 16:01 <YURIDIA Preeira Last Filed: 05/22/24 10:40> Home medications: Home Medications ?Medication ?Instructions ?Recorded ?Confirmed ?Last Taken ?Type buprenorphine 8 mg-naloxone 2 mg 1 film sublingual BID 05/22/24 05/22/24 Unknown History sublingual film (Suboxone) cyanocobalamin (vitamin B-12) 1,000 mcg PO DAILY 05/22/24 05/22/24 Unknown History 1,000 mcg tablet propranolol 10 mg tablet 10 mg PO BID 05/22/24 05/22/24 Unknown History quetiapine 200 mg tablet 200 mg PO BEDTIME 05/22/24 05/22/24 Unknown History sucralfate 100 mg/mL oral 10 ml PO BID 05/22/24 05/22/24 Unknown History suspension thiamine HCl (vitamin B1) 100 mg 100 mg PO DAILY 05/22/24 05/22/24 Unknown History tablet <YURIDIA Pereira Last Filed: 05/22/24 10:40> Physical Exam Vital Signs and Narrative: Vital Signs: Last Vital Signs Temp 97.4 F 05/22/24 08:12 Pulse 75 05/22/24 08:12 Resp 16 05/22/24 08:12 BP 137/67 05/22/24 08:12 Pulse Ox 95 05/22/24 08:12 O2 Del Method Room Air 05/22/24 08:12 BMI result Body Mass Index 26.3 <YURIDIA Pereira Last Filed: 05/22/24 10:40> Constitutional - Awake and Alert, No apparent distress Eyes - PERRLA, EOMI Cardiovascular - S1S2, RRR, No edema Respiratory - Normal lung expansion, Normal respiratory effort, No respiratory distress, CTA bilaterally Gastrointestinal - NT / ND; +BS; No rebound or guarding Extremities - no calf tenderness bilaterally, no swelling Skin - Warm, palms moist but otherwise dry Neurological - Alert & oriented x3, weak appearing, tremors with outstretched hands Psychological - Appropriate affect <YURIDIA Pereira Last Filed: 05/22/24 10:40> Results Labs CBC and Chem 7: 05/23/24 04:12 05/23/24 04:12 <YURIDIA Pereira Last Filed: 05/22/24 10:40> Labs: Laboratory Results - last 24 hr 05/22/24 05/22/24 05/22/24 04:44 04:52 05:06 MCV 83.4 MCH 27.0 MCHC 32.4 RDW 14.4 Plt Count 489 H MPV 9.1 L Immature Gran % (Auto) 0.6 H Neut % (Auto) 82.9 H Lymph % (Auto) 10.6 L [place] % (Auto) 5.0 Eos % (Auto) 0.2 Baso % (Auto) 0.7 Lymph # (Auto) 1.5 [place] # (Auto) 0.7 Eos # (Auto) 0.0 Baso # (Auto) 0.1 Abs Immat Gran (auto) 0.08 H Absolute Neuts (auto) 11.9 H Absolute Nucleated RBC 0.000 Nucleated RBC % (auto) 0.0 Anion Gap 18 Estim Creat Clear Calc 127.6 Estimated GFR > 60 Random Glucose 101 Calcium 9.3 Total Bilirubin 0.3 AST 28 ALT 19 Alkaline Phosphatase 132 H Total Creatine Kinase 179 H Total Protein 8.4 H Albumin 4.1 Urine Opiates Screen Not Detected Ur Buprenorphine Scrn Positive H Ur Oxycodone Screen Not Detected Urine Methadone Screen Not Detected Urine Fentanyl Screen Not Detected Ur Barbiturates Screen POSITIVE H Ur Phencyclidine Scrn Not Detected Ur Amphetamines Screen POSITIVE H U Benzodiazepines Scrn Not Detected Urine Cocaine Screen POSITIVE H U Marijuana (THC) Screen Not Detected Ethyl Alcohol < 10 COVID-19 ([facility]) Negative COVID-19 Clin Com See Note <YURIDIA Pereira - Last Filed: 05/22/24 10:40> Assessment and Plan (1) Alcohol withdrawal: Qualifiers: Complication of substance-induced condition: uncomplicated Qualified Code(s): F10.930 - Alcohol use, unspecified with withdrawal, uncomplicated <YURIDIA Pereira - Last Filed: 05/22/24 10:40> Status: Acute <YURIDIA Pereira - Last Filed: 05/22/24 10:40> (2) Suicidal ideation: Status: Acute <YURIDIA Pereira - Last Filed: 05/22/24 10:40> 49-year-old male with history of alcohol use disorder, severe alcohol withdrawal with seizures, polysubstance abuse/IVDA, and major depressive disorder admitted for acute alcohol withdrawal and suicidal ideation. 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 on CIWA- currently 15 on my exam Phenobarbital per protocol IV thiamine and folic acid Seizure precautions Addiction medicine consult Monitor on med/tele Major depressive disorder with SI Reports his relapse of alcohol and crack/cocaine was a suicide attempt Reports depression since his mother passed several weeks ago Recently discharged from Psychiatry yesterday Sitter consult Will need care team consult once medically cleared Section 12 Polysubstance abuse Urine tox screen positive for buprenorphine, benzodiazepines, amphetamines, and cocaine Addiction medicine consult Seizures given recent history, question if there is some underlying seizure disorder If recurrent, consider neuro consult and possible EGD if suspicion remains high DVT prophylaxis-Lovenox Full code Patient requires inpatient stay at least 2 midnights for acute alcohol withdrawal with history of severe withdrawal including seizures requiring phenobarbital per protocol, close monitoring of CIWA and will also require psychiatric clearance prior to discharge given SI <YURIDIA Pereira - Last Filed: 05/22/24 10:40> 49-year-old male with history of alcohol use disorder, severe alcohol withdrawal with seizures, polysubstance abuse/IVDA, and major depressive disorder admitted for acute alcohol withdrawal and suicidal ideation. 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 on CIWA- currently 15 on my exam Phenobarbital per protocol IV thiamine and folic acid Seizure precautions Addiction medicine consult Monitor on med/tele Major depressive disorder with SI Reports his relapse of alcohol and crack/cocaine was a suicide attempt Reports depression since his mother passed several weeks ago Recently discharged from Psychiatry yesterday Sitter consult Will need care team consult once medically cleared Section 12 Polysubstance abuse Urine tox screen positive for buprenorphine, benzodiazepines, amphetamines, and cocaine Addiction medicine consult Seizures given recent history, question if there is some underlying seizure disorder If recurrent, consider neuro consult and possible EGD if suspicion remains high DVT prophylaxis-Lovenox Full code Patient requires inpatient stay at least 2 midnights for acute alcohol withdrawal with history of severe withdrawal including seizures requiring phenobarbital per protocol, close monitoring of CIWA and will also require psychiatric clearance prior to discharge given SI. addm: agree withabove in addition Acute alcohol withdrawal/hx of severe withdrawal with seizures no new seizure episodes . please see last admission dc summary -no further workup for now unless any new seizures . <Norris Ogden MD - Last Filed: 05/23/24 08:57> Quality Stroke Does the patient have a stroke diagnosis?: No <YURIDIA Pereira - Last Filed: 05/22/24 10:40> VTE Prior VTE?: No <YURIDIA Pereira - Last Filed: 05/22/24 10:40> VTE Risk Level:: Medical - moderate - high <YURIDIA Pereira - Last Filed: 05/22/24 10:40> VTE Device Contraindication: Treatment Not Indicated <YURIDIA Pereira - Last Filed: 05/22/24 10:40> VTE Drug Contraindication: N/A - Med Ordered <YURIDIA Pereira - Last Filed: 05/22/24 10:40>
[2024-05-22] MEDS: Thiamine HCL 100 MG in 0.9 % Sodium Chloride 100 ML 202 MG IV (10:24)
[2024-05-22] MEDS: PHENobarbitaL sodium 130 MG/ML IM ONCE 424 MG IM (10:25)
[2024-05-22] MEDS: Enoxaparin Sodium 40 MG/0.4 ML SYRINGE SUBCUT (10:25)
[2024-05-22] MEDS: Lactated Ringers 1,000 ML 125 ML IVCONT ×2 (11:53→20:04)
[2024-05-22] MEDS: Folic Acid 1 MG in 0.9 % Sodium Chloride 50 ML 100.4 MG IV (11:53)
--- NOTE | 2024-05-22 12:00 | PC.NURSE ---
Patient presents with etoh withdrawal. Significant history for opiate and alcohol use disorder. Patient alert and cooperative. Has received several doses of phenobarb with good effect. Patient remains on a 1:1. studio operation engineer maintained and sbrady noted. Respirations even and non-labored. Pox in the high 90's on O2 therapy. Abdomen soft, non-tender with positive bowel sounds. CIWA scores obtained as ordered. Pending a bed assignment.
--- NOTE | 2024-05-22 13:53 | MHC.EDTECH ---
Pt refused all treatment at this time. pt refused vital signs, blood draw and ekg
[2024-05-22 14:00] VITALS: BP 125/57; PULSE 60; RESP 14; O2SAT 98
[2024-05-22] MEDS: PHENobarbitaL sodium 130 MG/ML VIAL IM Q3Hx2 318 MG IM ×2 (14:00→17:02)
--- NOTE | 2024-05-22 16:00 | HO.ADDICT_ITS ---
History of Present Illness Date of Service: 05/22/2024 Chief Complaint: alcohol withdrawal suicidal ideation Reason for Consult: JAE Sources of Information: chart reviewed HPI Narrative: All information obtained via chart review as patient was asleep and had difficulty remaining awake when t/w attempted to meet with him. Patient is a 49 year old male with history of AUD, OUD, and MDD. Known to this designer writer via recent admission for toxic encephalopathy secondary to drug and alcohol use--following medical admission patient was transferred to unit for treatment of depression and suicidal ideation--he was discharged yesterday and presented to ED early this morning reporting ongoing SI and recent alcohol and cocaine use. UDS +cocaine. EtoH<10 Past Psychiatric History: Inpt: several past psychiatric admission. Last one was back in 2023 at [facility]. OP: Chelsy Saleh- OP psychotherapist but has not seen patient in person for about one year, nor has had phone contact in several months. Psychotropic medications prescribed by Dr. Doyle Bermudez through [facility] for dual dx services. Both are terminated with pt he reports Hx of suicide attempts: several OD attempts, last one was in Oct 2023. 15 attempts pt reports Past medication trials: lexapro, adderall, propanolol- he has overdosed on these by history along with gabapentin Review of Systems Review of Systems Yes Unobtainable due to mental status Diagnostics Vital Signs (24Hr): Vital Signs - 24 hr 05/22/24 04:30 05/22/24 08:12 Temperature 98.4 F 97.4 F Pulse Rate 87 75 Respiratory Rate 18 16 Blood Pressure 138/85 137/67 Pulse Oximetry 98 95 Oxygen Delivery Method Room Air Room Air BMI result Body Mass Index 26.3 Labs 05/22/24 04:52 05/22/24 04:52 Labs: Laboratory Results - last 48 hr 05/22/24 05/22/24 05/22/24 04:44 04:52 05:06 WBC 14.3 H RBC 4.63 Hgb 12.5 L Hct 38.6 L MCV 83.4 MCH 27.0 MCHC 32.4 RDW 14.4 Plt Count 489 H MPV 9.1 L Immature Gran % (Auto) 0.6 H Neut % (Auto) 82.9 H Lymph % (Auto) 10.6 L [place] % (Auto) 5.0 Eos % (Auto) 0.2 Baso % (Auto) 0.7 Lymph # (Auto) 1.5 [place] # (Auto) 0.7 Eos # (Auto) 0.0 Baso # (Auto) 0.1 Abs Immat Gran (auto) 0.08 H Absolute Neuts (auto) 11.9 H Absolute Nucleated RBC 0.000 Nucleated RBC % (auto) 0.0 Sodium 141 Potassium 3.8 Chloride 105 Carbon Dioxide 22 Anion Gap 18 BUN 18 H Creatinine 0.70 Estim Creat Clear Calc 127.6 Estimated GFR > 60 Random Glucose 101 Calcium 9.3 Total Bilirubin 0.3 AST 28 ALT 19 Alkaline Phosphatase 132 H Total Creatine Kinase 179 H Total Protein 8.4 H Albumin 4.1 Urine Opiates Screen Not Detected Ur Buprenorphine Scrn Positive H Ur Oxycodone Screen Not Detected Urine Methadone Screen Not Detected Urine Fentanyl Screen Not Detected Ur Barbiturates Screen POSITIVE H Ur Phencyclidine Scrn Not Detected Ur Amphetamines Screen POSITIVE H U Benzodiazepines Scrn Not Detected Urine Cocaine Screen POSITIVE H U Marijuana (THC) Screen Not Detected Ethyl Alcohol < 10 COVID-19 ([facility]) Negative COVID-19 Clin Com See Note Mental Status Exam Mental Status Exam Level of Consciousness: Drowsy Patient Behavior: Asleep Medications Medications Current Medications Acetaminophen (Acetaminophen 325 Mg Tablet) 650 mg PO Q6H PRN PRN Reason: Pain, Mild 1-3,fever,headache Calcium Carbonate (Calcium Carbonate 750 Mg Tab.Chew) 750 mg PO Q4H PRN PRN Reason: Heartburn Enoxaparin Sodium (Enoxaparin Sodium 40 Mg/0.4 Ml Syringe) 40 mg SUBCUT Q24H [facility] Last Admin: 05/22/24 10:25 Dose: 40 mg Folic Acid 1 mg/ Sodium (Chloride) 50.2 mls @ 100.4 mls/hr IV DAILY MARIANN Stop: 05/24/24 09:29 Last Infusion: 05/22/24 12:23 Dose: Infused Thiamine HCl 100 mg/ Sodium (Chloride) 101 mls @ 202 mls/hr IV DAILY [facility] Last Infusion: 05/22/24 11:02 Dose: Infused Lactated Ringer's (Lr) 1,000 mls @ 125 mls/hr IVCONT .Q8H [facility] Last Admin: 05/22/24 11:53 Dose: 125 mls/hr Magnesium Hydroxide (Milk Of Magnesia 30 Ml Oral.Susp) 30 ml PO DAILY PRN PRN Reason: Constipation Melatonin (Melatonin 3 Mg Tablet) 6 mg PO BEDTIME PRN PRN Reason: Insomnia Pharmacy Consult (Consult Rx Etoh Phenob Im/Po) 1 each MISCELLANE ONCE PRN; Protocol PRN Reason: Consult order Phenobarbital (Phenobarbital 15 Mg Tablet) 45 mg PO BID MARIANN; Protocol Stop: 05/24/24 09:01 Phenobarbital (Phenobarbital 30 Mg Tablet) 30 mg PO BID MARIANN; Protocol Stop: 05/26/24 09:01 Phenobarbital (Phenobarbital 30 Mg Tablet) 30 mg PO DAILY MARIANN; Protocol Stop: 05/27/24 09:01 Phenobarbital Sodium (Phenobarbital Sodium 130 Mg/Ml Vial Im Q3hx2) 318 mg IM Q3H MARIANN Stop: 05/22/24 16:01 Last Admin: 05/22/24 14:00 Dose: 318 mg Sodium Chloride (0.9 % Sodium Chloride Flush 3 Ml Syringe) 3 ml IVFLUSH QSHIFT MARIANN Allergies Allergies Allergy/AdvReac Type Severity Reaction Status Date / Time No Known Allergies Allergy Verified 05/22/24 04:34 Assessment & Plan Assessment & Plan (1) Alcohol use disorder, moderate, dependence: Status: Acute Code(s): F10.20 - Alcohol dependence, uncomplicated Assessment and Plan: * placed on phenobarbital protocol due to history of severe withdrawal, however this is unlikely given the small period of time from when he was discharged to when he presented to ED again--and etoh level was undetectable. * His presentation is more likely due to overamping from excessive stimulant use (cocaine), which can look similar to alcohol withdrawal, with agitation, restlessness, diaphoresis, tachycardia, etc. * Fluids and rest. Benzos only needed for agitation. Clonidine can be used for any ongoing anxiety, restlessness. (2) Opioid use disorder: Status: Acute Code(s): F11.90 - Opioid use, unspecified, uncomplicated Assessment and Plan: * can resume suboxone 8mg BID, once he is awake and alert * will follow up in AM Total time managing care of this patient today ____30 minutes. PMFSH Past Medical History Medical History Dysphagia Grief reaction History of suicidal ideation Cocaine use disorder, moderate, dependence Opioid use disorder Mood disorder Social History Social History Household Members: None Housing: Homeless Do you presently have visiting nurse or other home services: No Alcohol intake: current Comment: Sitter Patient Tobacco Use Status: Current everyday Tobacco user Tobacco use type: Cigarette Cigarette Packs Per Day: 2 Cigarettes Per Day: 40.0 e-Cigarette/Vaping Use: Never Used Second Hand Smoke Exposure: No Substance Use Type: Crack/Cocaine, Heroin and Marijuana Advance Directives: No Advance Directives Information Provided: Yes Do you have a plan to hurt others: No Plan service: No Sexual orientation: Straight/Heterosexual
[2024-05-22 16:25] VITALS: BP 120/60; PULSE 61; RESP 13; O2SAT 100
[2024-05-22 21:59] VITALS: BP 108/53; PULSE 56; RESP 14; O2SAT 97
[2024-05-22] MEDS: PHENobarbitaL 15 MG TABLET 45 MG PO (22:17)
[2024-05-22] MEDS: Docusate Sodium 100 MG CAPSULE PO (22:17)
[2024-05-22] MEDS: Buprenorphine/Naloxone 8/2 mg FILM 1 FILM SUBLINGUAL (22:18)
[2024-05-22] MEDS: Sucralfate Oral Suspension 1 GM/10 ML ORAL.SUSP PO (22:18)
[2024-05-22] MEDS: Propranolol HCL 10 MG TABLET PO (22:18)
[2024-05-22] MEDS: lamoTRIgine 25 MG TABLET 50 MG PO (22:18)
[2024-05-22] MEDS: QUEtiapine Fumarate 200 MG TABLET PO (22:18)
--- NOTE | 2024-05-22 23:10 | PC.NURSE ---
This residential mortgage underwriter assumed care of this Pt at 2300. Pt appears to be sleeping, equal, non-labored respirations.
[2024-05-23] VITALS (9 sets, daily range): BP systolic 95–115; BP diastolic 39–62; PULSE 55–65; RESP 12–18; TEMP 36.6–37; O2SAT 95–98
[2024-05-23] MEDS: Lactated Ringers 1,000 ML 125 ML IVCONT ×2 (04:07→12:07)
[2024-05-23 04:20] LABS: MANUAL DIFF FLAG NO
[2024-05-23 04:21] LABS: Basophils Percent Auto 0.6 % (0-2); Eosinophils Absolute Auto 0.3 X10*3/uL (0.0-0.4); Hematocrit 33.1 % (42.0-52.0); Imm Gran Abs Auto 0.02 X10*3/uL (0.00-0.03); Imm Gran Pct Auto 0.3 % (0.0-0.4); Lymphocytes Percent Auto 30.9 % (20-40); Mean Corpuscular HGB Conc 33.2 g/dl (31.0-36.0); Mean Corpuscular Hemoglobin 27.9 pg (27.0-33.0); Mean Platelet Volume 9.1 fL (9.4-12.4); Monocytes Absolute Auto 0.6 X10*3/uL (0.1-1.2); Monocytes Percent Auto 8.4 % (2-11); Neutrophils Absolute Auto 3.6 x10*3/uL (2.0-8.3); Neutrophils Percent Auto 55.8 % (45-73); Platelet Count 318 X10*3/uL (160-400); Red Blood Count 3.94 X10*6/uL (4.60-5.80); Red Cell Distribution Width 14.3 % (11.0-16.0); White Blood Count 6.5 X10*3/uL (4.8-10.8)
[2024-05-23 04:36] LABS: Lactate Dehydrogenase 175 U/L (118-273)
[2024-05-23 04:37] LABS: Anion Gap 12 (12-20); Blood Urea Nitrogen 13 mg/dL (9-16); Calcium 8.6 mg/dL (8.4-10.2); Carbon Dioxide 26 mmol/L (22-29); Chloride 109 mmol/L (96-108); Creatinine Clr Calc Pharmacy 141.8; Estimated Glomerular Filt Rate > 60; Glucose Random 80 mg/dL (60-115); Potassium 3.5 mmol/L (3.3-5.1); Sodium 143 mmol/L (135-145)
[2024-05-23 04:38] LABS: Lactic Acid 0.6 mmol/L (0.5-2.0)
[2024-05-23 04:41] LABS: Acetaminophen LAB < 3 mcg/mL (<30); Salicylate < 5.0 mg/dL (15-30)
--- NOTE | 2024-05-23 05:12 | PC.NURSE ---
Pt appears to be sleeping, awakes with tactile stimuli. Pt refused morning blood draw, reassured and accepted blood draw. 1:1 sitter at bedside for safety. Plan of care on going.
[2024-05-23] MEDS: Omeprazole 40 MG CAPSULE.DR PO ×2 (06:25→16:18)
--- NOTE | 2024-05-23 07:53 | PC.NURSE ---
pt is resting peacefully, and easily arousbale, pt is diaphoretic on his forehead, no visible tremor, no nausea or pain at this time, no seizure activity noticed at this, seizure precautions in place, vs stable pt is still reporting suicidal thoughts, sitter in place. pt set up with his breakfast bree and ate
--- NOTE | 2024-05-23 09:02 | MHC.CM.PN ---
CM is unable to wake patient; from chart review only, Tentative dc plan is pending Care Team Consult (? IPLOC R/T SI with many attempts) & Recovery Team Consult (on Suboxone & ETOH). CM has initiated and will follow for dc planning. NO apparent HCP nor PCP, Patient may require assist with transport at dc, pending final dc plan.
[2024-05-23] MEDS: Escitalopram Oxalate 20 MG TABLET PO (09:29)
[2024-05-23] MEDS: Docusate Sodium 100 MG CAPSULE PO (09:29)
[2024-05-23] MEDS: Cyanocobalamin (Vitamin B-12) 1,000 MCG TABLET 1000 MCG PO (09:29)
[2024-05-23] MEDS: lamoTRIgine 25 MG TABLET 50 MG PO (09:29)
[2024-05-23] MEDS: PHENobarbitaL 15 MG TABLET 45 MG PO (09:31)
[2024-05-23] MEDS: Sucralfate Oral Suspension 1 GM/10 ML ORAL.SUSP PO (09:31)
[2024-05-23] MEDS: Enoxaparin Sodium 40 MG/0.4 ML SYRINGE SUBCUT (09:31)
[2024-05-23] MEDS: Thiamine HCL 100 MG in 0.9 % Sodium Chloride 100 ML 202 MG IV (09:32)
--- NOTE | 2024-05-23 09:45 | PC.NURSE ---
holding the inderal do to low hr and soft Bp, holding suboxone for now pt is quite sleepy and vs soft
[2024-05-23] MEDS: Folic Acid 1 MG in 0.9 % Sodium Chloride 50 ML 100.4 MG IV (10:14)
--- NOTE | 2024-05-23 12:47 | PC.NURSE ---
Patient presented with alcohol withdrawal with a history of polysubstance abuse. Received phenobarb protocol and CIWA has stabilized. security monitor maintained and sbrady noted. Lungs clear bilat. Respirations even and non-labored. Abcomen soft, non-tender with positive bowel sounds. Positive pedal pulses with no edema. Fluids infusing as ordered. Patient pending a bed assignment.
--- NOTE | 2024-05-23 13:49 | HO.PM.IMPN ---
Subjective Subjective Date of Service: 05/23/24 Interval History: deprssion ,si ,alcohol withdrawals Review of Systems alcohol withdrawals imoroving Physical Exam Vital Signs: Vital Signs: Last Vital Signs Temp 97.9 F 05/23/24 12:45 Pulse 57 05/23/24 12:45 Resp 16 05/23/24 12:45 BP 105/50 L 05/23/24 12:45 Pulse Ox 95 05/23/24 12:45 O2 Del Method Room Air 05/23/24 12:45 O2 Flow Rate 3 05/23/24 01:37 BMI result Body Mass Index 26.3 Appearance: Alert.? Oriented X3 cvs: rrr, [id number]. res: clear to auscultation ,no rhonchii or wheezing abd: no rebound or guarding ,nt, bs present. ext pulses present , no cyanosis . neuro: axo3 , nonfocal. Objective Data Active Medications Acetaminophen (Acetaminophen 325 Mg Tablet) 650 mg PO Q6H PRN PRN Reason: Pain, Mild 1-3,fever,headache Buprenorphine/Naloxone (Buprenorphine/Naloxone 8/2 Mg Film) 1 film SUBLINGUAL BID [facility] Last Admin: 05/23/24 11:18 Dose: Not Given Documented By: MARIA GUADALUPE Non-Admin Reason: Decreased Blood Pressure Calcium Carbonate (Calcium Carbonate 750 Mg Tab.Chew) 750 mg PO Q4H PRN PRN Reason: Heartburn Cyanocobalamin (Cyanocobalamin (Vitamin B-12) 1,000 Mcg Tablet) 1,000 mcg PO DAILY [facility] Last Admin: 05/23/24 09:29 Dose: 1,000 mcg Documented By: MARIA GUADALUPE Docusate Sodium (Docusate Sodium 100 Mg Capsule) 100 mg PO BID [facility] Last Admin: 05/23/24 09:29 Dose: 100 mg Documented By: MARIA GUADALUPE Enoxaparin Sodium (Enoxaparin Sodium 40 Mg/0.4 Ml Syringe) 40 mg SUBCUT Q24H [facility] Last Admin: 05/23/24 09:31 Dose: 40 mg Documented By: MARIA GUADALUPE Escitalopram Oxalate (Escitalopram Oxalate 20 Mg Tablet) 20 mg PO DAILY [facility] Last Admin: 05/23/24 09:29 Dose: 20 mg Documented By: MARIA GUADALUPE Folic Acid 1 mg/ Sodium (Chloride) 50.2 mls @ 100.4 mls/hr IV DAILY [facility] Stop: 05/24/24 09:29 Last Infusion: 05/23/24 11:00 Dose: Infused Documented By: NAHID Thiamine HCl 100 mg/ Sodium (Chloride) 101 mls @ 202 mls/hr IV DAILY [facility] Last Infusion: 05/23/24 10:05 Dose: Infused Documented By: MARIA GUADALUPE Lactated Ringer's (Lr) 1,000 mls @ 125 mls/hr IVCONT .Q8H [facility] Last Admin: 05/23/24 12:07 Dose: 125 mls/hr Documented By: NAHID Lamotrigine (Lamotrigine 25 Mg Tablet) 50 mg PO BID [facility] Last Admin: 05/23/24 09:29 Dose: 50 mg Documented By: MARIA GUADALUPE Magnesium Hydroxide (Milk Of Magnesia 30 Ml Oral.Susp) 30 ml PO DAILY PRN PRN Reason: Constipation Melatonin (Melatonin 3 Mg Tablet) 6 mg PO BEDTIME PRN PRN Reason: Insomnia Nicotine Polacrilex (Nicotine Polacrilex 2 Mg Gum) 2 mg BUCCAL Q2H PRN PRN Reason: Nicotine Cravings Non-Formulary Medication (Lisdexamfetamine [Vyvanse]) 60 mg PO DAILY [facility] Omeprazole (Omeprazole 40 Mg Capsule.) 40 mg PO BID@0630,1630 [facility] Last Admin: 05/23/24 06:25 Dose: 40 mg Documented By: SPENCER Pharmacy Consult (Consult Rx Etoh Phenob Im/Po) 1 each MISCELLANE ONCE PRN; Protocol PRN Reason: Consult order Phenobarbital (Phenobarbital 15 Mg Tablet) 45 mg PO BID [facility]; Protocol Stop: 05/24/24 09:01 Last Admin: 05/23/24 09:31 Dose: 45 mg Documented By: MARIA GUADALUPE Phenobarbital (Phenobarbital 30 Mg Tablet) 30 mg PO BID [facility]; Protocol Stop: 05/26/24 09:01 Phenobarbital (Phenobarbital 30 Mg Tablet) 30 mg PO DAILY [facility]; Protocol Stop: 05/27/24 09:01 Polyethylene Glycol (Polyethylene Glycol 3350 17 Gm Powd.Pack) 17 gm PO DAILY PRN PRN Reason: Constipation Propranolol HCl (Propranolol Hcl 10 Mg Tablet) 10 mg PO BID [facility]; Protocol Last Admin: 05/23/24 09:30 Dose: Not Given Documented By: MARIA GUADALUPE Non-Admin Reason: Decreased Heart Rate Quetiapine Fumarate (Quetiapine Fumarate 200 Mg Tablet) 200 mg PO BEDTIME [facility] Last Admin: 05/22/24 22:18 Dose: 200 mg Documented By: NAHID Sodium Chloride (0.9 % Sodium Chloride Flush 3 Ml Syringe) 3 ml IVFLUSH QSHIFT [facility] Last Admin: 05/23/24 07:49 Dose: Not Given Documented By: MARIA GUADALUPE Non-Admin Reason: IV Running Sucralfate (Sucralfate Oral Suspension 1 Gm/10 Ml Oral.Susp) 1 gm PO BID [facility] Last Admin: 05/23/24 09:31 Dose: 1 gm Documented By: MARIA GUADALUPE Trazodone HCl (Trazodone Hcl 50 Mg Tablet) 50 mg PO BEDTIME MRX1 PRN PRN Reason: Insomnia Labs 05/23/24 04:12 05/23/24 04:12 Labs: Laboratory Results - last 24 hr 05/23/24 04:12 MCV 84.0 MCH 27.9 MCHC 33.2 RDW 14.3 Plt Count 318 D MPV 9.1 L Immature Gran % (Auto) 0.3 Neut % (Auto) 55.8 Lymph % (Auto) 30.9 [place] % (Auto) 8.4 Eos % (Auto) 4.0 Baso % (Auto) 0.6 Lymph # (Auto) 2.0 [place] # (Auto) 0.6 Eos # (Auto) 0.3 Baso # (Auto) 0.0 Abs Immat Gran (auto) 0.02 Absolute Neuts (auto) 3.6 Absolute Nucleated RBC 0.000 Nucleated RBC % (auto) 0.0 Anion Gap 12 Estim Creat Clear Calc 141.8 Estimated GFR > 60 Random Glucose 80 Lactic Acid 0.6 Calcium 8.6 D Lactate Dehydrogenase 175 Salicylates < 5.0 L Acetaminophen < 3 Assessment and Plan (1) Alcohol withdrawal: Status: Acute (2) Suicidal ideation: Status: Acute Assessment and Plan: 49-year-old male with history of alcohol use disorder, severe alcohol withdrawal with seizures, polysubstance abuse/IVDA, and major depressive disorder admitted for acute alcohol withdrawal and suicidal ideation. Acute alcohol withdrawal hx of severe withdrawal with seizures withdrawal symptoms seems improved off phenobarbital continue thiamine and folic acid,Seizure precautions Addiction medicine following Monitor on med/tele Major depressive disorder with SI Reports his relapse of alcohol and crack/cocaine was a suicide attempt/ depression since his mother passed several weeks ago Recently discharged from Psychiatry yesterday Sitter consult psych and care team consult placed because patient is medically cleared. Section 12 Polysubstance abuse Urine tox screen positive for buprenorphine, benzodiazepines, amphetamines, and cocaine Acute alcohol withdrawal/hx of severe withdrawal with seizures no new seizure episodes . please see last admission dc summary -no further workup for now unless any new seizures DVT prophylaxis-Lovenox Quality Stroke Does the patient have a stroke diagnosis?: No VTE Prior VTE?: No VTE Risk Level:: Medical - moderate - high VTE Device Contraindication: Treatment Not Indicated VTE Drug Contraindication: N/A - Med Ordered
--- NOTE | 2024-05-23 13:57 | P.PNADD_ITS ---
Subjective Subjective Date of Service: 05/23/24 Reason For Visit: alcohol withdrawal suicidal ideation Interim History: Patient seen in follow up Awake, alert, oriented Reports feeling like garbage States he used a lot of cocaine and vodka before coming back to ED Reporting headache. Denies nausea, vomiting, loose stools No diaphoresis or restlessness noted AUDIT-C Brief Intervention This software writer met with patient to discuss current alcohol use and concerns related to increased risk of alcohol related problems. Discussed how alcohol use has impacted health, including negative impact on mental health and overall physical wellbeing. Discussed risk reduction strategies including drinking below the recommended limit. Review of Systems Constitutional: Reports as per HPI Mental Status Exam Mental Status Exam Patient Orientation: Person, Place, Time and Situation Level of Consciousness: Awake, Appropriate and Alert Patient Behavior: Appropriate and Guarded Affect Description: Blunted and Flat Speech Pattern: Clear Diagnostics Vital Signs (24Hr): Vital Signs - 24 hr 05/22/24 14:00 05/22/24 16:25 05/22/24 21:59 Temperature Pulse Rate 60 61 56 Respiratory Rate 14 13 14 Blood Pressure 125/57 L 120/60 108/53 L Pulse Oximetry 98 100 97 Oxygen Delivery Method Nasal Cannula Room Air Nasal Cannula Oxygen Flow Rate 2 2 05/23/24 01:37 05/23/24 06:00 05/23/24 07:38 Temperature 97.9 F Pulse Rate 59 58 65 Respiratory Rate 14 16 18 Blood Pressure 96/49 L 103/52 L 95/58 L Pulse Oximetry 98 96 97 Oxygen Delivery Method Nasal Cannula Room Air Room Air Oxygen Flow Rate 3 05/23/24 07:45 05/23/24 09:26 05/23/24 09:30 Temperature 97.9 F Pulse Rate 61 55 55 Respiratory Rate 18 18 Blood Pressure 100/39 L 97/42 L 97/59 L Pulse Oximetry 95 96 Oxygen Delivery Method Room Air Room Air Oxygen Flow Rate 05/23/24 12:45 Temperature 97.9 F Pulse Rate 57 Respiratory Rate 16 Blood Pressure 105/50 L Pulse Oximetry 95 Oxygen Delivery Method Room Air Oxygen Flow Rate BMI result Body Mass Index 26.3 Labs 05/23/24 04:12 05/23/24 04:12 Labs: Laboratory Results - last 48 hr 05/22/24 05/22/24 05/22/24 04:44 04:52 05:06 WBC 14.3 H RBC 4.63 Hgb 12.5 L Hct 38.6 L MCV 83.4 MCH 27.0 MCHC 32.4 RDW 14.4 Plt Count 489 H MPV 9.1 L Immature Gran % (Auto) 0.6 H Neut % (Auto) 82.9 H Lymph % (Auto) 10.6 L [place] % (Auto) 5.0 Eos % (Auto) 0.2 Baso % (Auto) 0.7 Lymph # (Auto) 1.5 [place] # (Auto) 0.7 Eos # (Auto) 0.0 Baso # (Auto) 0.1 Abs Immat Gran (auto) 0.08 H Absolute Neuts (auto) 11.9 H Absolute Nucleated RBC 0.000 Nucleated RBC % (auto) 0.0 Sodium 141 Potassium 3.8 Chloride 105 Carbon Dioxide 22 Anion Gap 18 BUN 18 H Creatinine 0.70 Estim Creat Clear Calc 127.6 Estimated GFR > 60 Random Glucose 101 Lactic Acid Calcium 9.3 Total Bilirubin 0.3 AST 28 ALT 19 Alkaline Phosphatase 132 H Lactate Dehydrogenase Total Creatine Kinase 179 H Total Protein 8.4 H Albumin 4.1 Salicylates Urine Opiates Screen Not Detected Ur Buprenorphine Scrn Positive H Ur Oxycodone Screen Not Detected Urine Methadone Screen Not Detected Urine Fentanyl Screen Not Detected Acetaminophen Ur Barbiturates Screen POSITIVE H Ur Phencyclidine Scrn Not Detected Ur Amphetamines Screen POSITIVE H U Benzodiazepines Scrn Not Detected Urine Cocaine Screen POSITIVE H U Marijuana (THC) Screen Not Detected Ethyl Alcohol < 10 COVID-19 ([facility]) Negative COVID-19 Clin Com See Note 05/23/24 04:12 WBC 6.5 RBC 3.94 L Hgb 11.0 L Hct 33.1 L MCV 84.0 MCH 27.9 MCHC 33.2 RDW 14.3 Plt Count 318 D MPV 9.1 L Immature Gran % (Auto) 0.3 Neut % (Auto) 55.8 Lymph % (Auto) 30.9 [place] % (Auto) 8.4 Eos % (Auto) 4.0 Baso % (Auto) 0.6 Lymph # (Auto) 2.0 [place] # (Auto) 0.6 Eos # (Auto) 0.3 Baso # (Auto) 0.0 Abs Immat Gran (auto) 0.02 Absolute Neuts (auto) 3.6 Absolute Nucleated RBC 0.000 Nucleated RBC % (auto) 0.0 Sodium 143 Potassium 3.5 Chloride 109 H Carbon Dioxide 26 Anion Gap 12 BUN 13 Creatinine 0.63 Estim Creat Clear Calc 141.8 Estimated GFR > 60 Random Glucose 80 Lactic Acid 0.6 Calcium 8.6 D Total Bilirubin AST ALT Alkaline Phosphatase Lactate Dehydrogenase 175 Total Creatine Kinase Total Protein Albumin Salicylates < 5.0 L Urine Opiates Screen Ur Buprenorphine Scrn Ur Oxycodone Screen Urine Methadone Screen Urine Fentanyl Screen Acetaminophen < 3 Ur Barbiturates Screen Ur Phencyclidine Scrn Ur Amphetamines Screen U Benzodiazepines Scrn Urine Cocaine Screen U Marijuana (THC) Screen Ethyl Alcohol COVID-19 ([facility]) COVID-19 Clin Com Medications Medications Current Medications Acetaminophen (Acetaminophen 325 Mg Tablet) 650 mg PO Q6H PRN PRN Reason: Pain, Mild 1-3,fever,headache Buprenorphine/Naloxone (Buprenorphine/Naloxone 8/2 Mg Film) 1 film SUBLINGUAL BID [facility] Last Admin: 05/23/24 11:18 Dose: Not Given Calcium Carbonate (Calcium Carbonate 750 Mg Tab.Chew) 750 mg PO Q4H PRN PRN Reason: Heartburn Cyanocobalamin (Cyanocobalamin (Vitamin B-12) 1,000 Mcg Tablet) 1,000 mcg PO DAILY [facility] Last Admin: 05/23/24 09:29 Dose: 1,000 mcg Docusate Sodium (Docusate Sodium 100 Mg Capsule) 100 mg PO BID [facility] Last Admin: 05/23/24 09:29 Dose: 100 mg Enoxaparin Sodium (Enoxaparin Sodium 40 Mg/0.4 Ml Syringe) 40 mg SUBCUT Q24H [facility] Last Admin: 05/23/24 09:31 Dose: 40 mg Escitalopram Oxalate (Escitalopram Oxalate 20 Mg Tablet) 20 mg PO DAILY [facility] Last Admin: 05/23/24 09:29 Dose: 20 mg Folic Acid 1 mg/ Sodium (Chloride) 50.2 mls @ 100.4 mls/hr IV DAILY [facility] Stop: 05/24/24 09:29 Last Infusion: 05/23/24 11:00 Dose: Infused Thiamine HCl 100 mg/ Sodium (Chloride) 101 mls @ 202 mls/hr IV DAILY [facility] Last Infusion: 05/23/24 10:05 Dose: Infused Lactated Ringer's (Lr) 1,000 mls @ 125 mls/hr IVCONT .Q8H [facility] Last Admin: 05/23/24 12:07 Dose: 125 mls/hr Lamotrigine (Lamotrigine 25 Mg Tablet) 50 mg PO BID [facility] Last Admin: 05/23/24 09:29 Dose: 50 mg Magnesium Hydroxide (Milk Of Magnesia 30 Ml Oral.Susp) 30 ml PO DAILY PRN PRN Reason: Constipation Melatonin (Melatonin 3 Mg Tablet) 6 mg PO BEDTIME PRN PRN Reason: Insomnia Nicotine Polacrilex (Nicotine Polacrilex 2 Mg Gum) 2 mg BUCCAL Q2H PRN PRN Reason: Nicotine Cravings Omeprazole (Omeprazole 40 Mg Capsule.Dr) 40 mg PO BID@0630,1630 [facility] Last Admin: 05/23/24 06:25 Dose: 40 mg Pharmacy Consult (Consult Rx Etoh Phenob Im/Po) 1 each MISCELLANE ONCE PRN; Protocol PRN Reason: Consult order Polyethylene Glycol (Polyethylene Glycol 3350 17 Gm Powd.Pack) 17 gm PO DAILY PRN PRN Reason: Constipation Propranolol HCl (Propranolol Hcl 10 Mg Tablet) 10 mg PO BID [facility]; Protocol Last Admin: 05/23/24 09:30 Dose: Not Given Quetiapine Fumarate (Quetiapine Fumarate 200 Mg Tablet) 200 mg PO BEDTIME [facility] Last Admin: 05/22/24 22:18 Dose: 200 mg Sodium Chloride (0.9 % Sodium Chloride Flush 3 Ml Syringe) 3 ml IVFLUSH QSHIFT [facility] Last Admin: 05/23/24 07:49 Dose: Not Given Sucralfate (Sucralfate Oral Suspension 1 Gm/10 Ml Oral.Susp) 1 gm PO BID [facility] Last Admin: 05/23/24 09:31 Dose: 1 gm Trazodone HCl (Trazodone Hcl 50 Mg Tablet) 50 mg PO BEDTIME MRX1 PRN PRN Reason: Insomnia Allergies Allergies Allergy/AdvReac Type Severity Reaction Status Date / Time No Known Allergies Allergy Verified 05/22/24 04:34 Assessment & Plan Assessment & Plan (1) Opioid use disorder: Status: Acute Code(s): F11.90 - Opioid use, unspecified, uncomplicated Assessment and Plan: * suboxone has been restarted (2) Alcohol use disorder, moderate, dependence: Status: Acute Code(s): F10.20 - Alcohol dependence, uncomplicated Assessment and Plan: * no withdrawal sx noted * awaiting psychiatric admission --no follow up from [facility] indicated at this time Total time managing care of this patient today _20___ minutes.
[2024-05-23] MEDS: Folic Acid 1 MG TABLET PO (16:18)
[2024-05-23] MEDS: Thiamine HCL 100 MG TABLET PO (16:18)
--- NOTE | 2024-05-23 16:26 | PM.DS ---
DS: Providers Provider Date of Service: 05/23/24 Date of admission: 05/22/24 09:56 Date of discharge: 05/23/24 Primary care physician: Jennifer Ramirez MD Admitting clinician: Norris Ogden Attending physician on admission: Norris Ogden Consults: 05/22/24 07:02 ED CARE Team Crisis Consult Stat Comment: Reason for consultation: SI with plan to OD 05/22/24 10:06 Addiction Medicine Provider Routine Consulting Provider: Addiction Covering Reason for consultation: Polysubstance abuse, alcohol use disorder Consult for Sitter Routine Reason for consultation: SI 05/23/24 13:29 Consult to Psychiatry Routine [place]ing [place] [facility] [place] Reason for consultation: depression /SI-recurrent admissions Has provider been notified: No 05/23/24 13:56 Inpt CARE Team Crisis Consult Routine Comment: Reason for consultation: si/depression, medically clear DS: Diagnosis Discharge Diagnosis (1) Alcohol withdrawal: Status: Acute (2) Suicidal ideation: Status: Acute DS: Summary Hospital Course Hospital Course: HPI:49-year-old male with history of alcohol use disorder, severe alcohol withdrawal with seizures, polysubstance abuse/IVDA, and major depressive disorder presented to the ED this morning after relapsing on substances which he reports was a suicide attempt. He was recently admitted 04/20-04/25 and from 04/30-05/14 in alcohol withdrawal and and seizures. The most recent admission, he was discharged to Psychiatry due to SI and was discharged yesterday. During the most recent admission, he did require ICU care due to multiple seizures and required intubation. He was successfully extubated and moved to the medical floors where he was seen and evaluated by care team who recommended psychiatric admission. The patient reports after he was discharged yesterday he was still feeling depressed and drank a qt of vodka along with smoking crack cocaine, and injecting IV cocaine as another suicide attempt. He has not had any further since arrival but is currently in active withdrawal. He is reporting a significant headache, nausea, vomiting, anxiety/agitation, tremors, hot flashes/sweats, and low back pain. He is also reporting some confusion which he describes as fussiness. He is oriented x3. He denies any AH or VH. Sitter is present in room. He is also reporting dark urine but no dysuria or increased urinary frequency. 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 Since arrival, vital signs have been stable. He has a leukocytosis of 14.3. Renal function electrolyte levels are normal. Total CK 179. Urine tox screen positive for buprenorphine, barbiturates, amphetamines, and cocaine. Ethyl alcohol level undetectable. In the ED, he was given 1 mg lorazepam and 1 L IV fluids. hospital course: 49-year-old male with history of alcohol use disorder, severe alcohol withdrawal with seizures, polysubstance abuse/IVDA, and major depressive disorder admitted for acute alcohol withdrawal and suicidal ideation: Patient was started on CIWA scale, thiamine folic acid, phenobarb protocol: Patient most symptoms are improved, still has anxiety, depression and suicidal ideation: Some of the symptoms of anxiety also might be contributing to his initial presentation: Discussed with the psych in detail patient will be going to the psych facility for further management. Alcohol withdrawal williamson is seems to be improved so will discontinue phenobarbital. Above was discussed with psych provider in detail length. Time Attestation Total time managing care of this patient today: 40 mintues. Discharge Coordination Time (in mins): 40 min Quality: Safe Use of Opioids Does Pt have an Active Cancer Diagnosis on the Problem List?: No Quality: Stroke Does the patient have a stroke diagnosis?: No Physical Exam Vital Signs: Vital Signs: Last Vital Signs Temp 98.6 F 05/23/24 15:57 Pulse 56 05/23/24 15:57 Resp 18 05/23/24 15:57 BP 103/57 L 05/23/24 15:57 Pulse Ox 97 05/23/24 15:57 O2 Del Method Room Air 05/23/24 15:57 O2 Flow Rate 3 05/23/24 01:37 BMI result Body Mass Index 26.3 Appearance: Alert.? Oriented X3.? cvs: rrr, [id number] . res: clear to auscultation ,no rhonchii or wheezing abd: no rebound or guarding ,nt, bs present. ext pulses present , no cyanosis . neuro: axo3 , nonfocal. DS: Data Data Completed and Pending Completed studies during hospitalization [Text1]: Procedures Detoxification Services for Substance Abuse Treatment (04/30/24) Insertion of Endotracheal Airway into Trachea, Via Natural or Artificial Opening (04/30/24) Insertion of Infusion Device into Right Atrium, Percutaneous Approach (04/30/24) Introduction of Vasopressor into Peripheral Vein, Percutaneous Approach (04/30/24) Respiratory Ventilation, Greater than 96 Consecutive Hours (04/30/24) Ultrasonography of Superior Vena Cava, Guidance (04/30/24) Labs on day of discharge: Laboratory Results - last 24 hr 05/23/24 04:12 WBC 6.5 RBC 3.94 L Hgb 11.0 L Hct 33.1 L MCV 84.0 MCH 27.9 MCHC 33.2 RDW 14.3 Plt Count 318 D MPV 9.1 L Immature Gran % (Auto) 0.3 Neut % (Auto) 55.8 Lymph % (Auto) 30.9 [place] % (Auto) 8.4 Eos % (Auto) 4.0 Baso % (Auto) 0.6 Lymph # (Auto) 2.0 [place] # (Auto) 0.6 Eos # (Auto) 0.3 Baso # (Auto) 0.0 Abs Immat Gran (auto) 0.02 Absolute Neuts (auto) 3.6 Absolute Nucleated RBC 0.000 Nucleated RBC % (auto) 0.0 Sodium 143 Potassium 3.5 Chloride 109 H Carbon Dioxide 26 Anion Gap 12 BUN 13 Creatinine 0.63 Estim Creat Clear Calc 141.8 Estimated GFR > 60 Random Glucose 80 Lactic Acid 0.6 Calcium 8.6 D Lactate Dehydrogenase 175 Salicylates < 5.0 L Acetaminophen < 3 Discharge Plan Discharge Anticipated Discharge Date/Time: 05/23/24 16:19 Patient Disposition: Xfer Psychiatric Hosp Discharge Diagnosis: alcohol withdrawal,anxiety Referrals: Jennifer Meyer MD [Primary Care Provider] - 1 Week Discharge Medications: Continued lisdexamfetamine [Vyvanse] 60 mg capsule 60 mg PO DAILY Qty: 30 0RF Rx Instructions: Partial Fill upon patient request. acetaminophen 325 mg Tablet 650 mg PO Q6H PRN (Reason: Headache/Pain, Scale 1-10) Qty: 0 0RF trazodone 50 mg Tablet 50 mg PO BEDTIME MRX1 PRN (Reason: Insomnia) Qty: 7 0RF clonazepam 0.5 mg Tablet 0.5 mg PO TID PRN (Reason: Anxiety) Qty: 7 0RF escitalopram oxalate 20 mg Tablet 20 mg PO DAILY Qty: 7 0RF omeprazole 40 mg Capsule,Delayed Release(Dr/Ec) 40 mg PO BID@0630,1630 Qty: 14 0RF polyethylene glycol 3350 17 gram Powder In Packet 17 g PO DAILY PRN (Reason: Constipation) Qty: 14 0RF nicotine (polacrilex) 2 mg Gum 2 mg buccal Q2H PRN (Reason: Nicotine Cravings) Qty: 20 0RF lamotrigine 25 mg Tablet 50 mg PO BID Qty: 28 0RF docusate sodium 100 mg Capsule 100 mg PO BID Qty: 14 0RF folic acid 1 mg Tablet 2 mg PO DAILY Qty: 14 0RF sucralfate 100 mg/mL suspension 10 ml PO BID quetiapine 200 mg tablet 200 mg PO BEDTIME cyanocobalamin (vitamin B-12) 1,000 mcg tablet 1,000 mcg PO DAILY thiamine HCl (vitamin B1) 100 mg tablet 100 mg PO DAILY propranolol 10 mg tablet 10 mg PO BID buprenorphine-naloxone [Suboxone] 8-2 mg film 1 film sublingual BID Discharge Orders: Discharge Order (Routine); Ordered 05/23/24 Ordered By: Norris Ogden Diet: Advance to usual diet Activity on Discharge: As tolerated Stand Alone Forms: Patient Portal Discharge page Print Language: Mohawk
== END 2024-05-23 18:18 | DRG 773 ==
LOC: HO.ED 09:23 → HO.EDOVER 10:16 → HO.IMC 05-23 14:04
PROVIDERS: Physician Assistant Medical; Admitting Provider Physician Assistant; Emergency Provider Emergency Medicine; PCP Internal Medicine; Visit Provider Internal Medicine
DX: F10.239 Alcohol dependence with withdrawal, unspecified (principal); F11.20 Opioid dependence, uncomplicated; R45.851 Suicidal ideations; F17.210 Nicotine dependence, cigarettes, uncomplicated; F41.9 Anxiety disorder, unspecified; F19.10 Other psychoactive substance abuse, uncomplicated; F32.9 Major depressive disorder, single episode, unspecified; Z71.6 Tobacco abuse counseling; Z91.51 Personal history of suicidal behavior; Z20.822 Contact with and (suspected) exposure to COVID-19; Z79.899 Other long term (current) drug therapy
CPT/HCPCS: 36415; 80048; 80053; 80143; 80179; 80307; 82550; 83605; 83615; 85025; 87635; 93005; 99285; J1650; J2560; J3411; J7120; S9485

== ENCOUNTER → 2024-05-22 04:36 | Outpatient (BNV) | payer MEDICAID, SELFPAY | PROVIDERS: Admitting Provider Physician Assistant; Emergency Provider Emergency Medicine; Visit Provider Internal Medicine | DX: R94.31 Abnormal electrocardiogram [ECG] [EKG] (principal); F19.99 Other psychoactive substance use, unspecified with unspecified psychoactive substance-induced disorder | CPT/HCPCS: 93010 ==

== ENCOUNTER → 2024-05-22 09:56 | Outpatient (BNV) | payer MEDICAID, SELFPAY | PROVIDERS: Admitting Provider Physician Assistant; Emergency Provider Emergency Medicine; Visit Provider Physician Assistant | DX: F10.930 Alcohol use, unspecified with withdrawal, uncomplicated (principal); R45.851 Suicidal ideations | CPT/HCPCS: 99223; 99239 ==

== ENCOUNTER → 2024-05-22 09:56 | Outpatient (BNV) | payer OTHER, SELFPAY | PROVIDERS: Admitting Provider Physician Assistant; Emergency Provider Emergency Medicine; Visit Provider Nurse Practitioner Psychiatric/Mental Health | DX: F10.20 Alcohol dependence, uncomplicated (principal); F11.90 Opioid use, unspecified, uncomplicated | CPT/HCPCS: 99231 ==

== ENCOUNTER → 2024-05-22 09:56 | Outpatient (BNV) | payer OTHER, SELFPAY | PROVIDERS: Admitting Provider Physician Assistant; Emergency Provider Emergency Medicine; PCP Internal Medicine; Visit Provider Nurse Practitioner Psychiatric/Mental Health | DX: F11.90 Opioid use, unspecified, uncomplicated (principal); F10.20 Alcohol dependence, uncomplicated | CPT/HCPCS: 99231 ==

== ENCOUNTER 2024-05-23 18:20 | Inpatient (IN) | payer OTHER, SELFPAY ==
[2024-05-23 18:25] VITALS: BP 117/71; PULSE 68; TEMP 36.3; O2SAT 97
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
[2024-05-23 19:51] VITALS: BP 117/71; PULSE 68; RESP 18; TEMP 36.3; O2SAT 97
[2024-05-23] MEDS: QUEtiapine Fumarate 200 MG TABLET PO (21:25)
[2024-05-23] MEDS: Buprenorphine/Naloxone 8/2 mg FILM 1 FILM SUBLINGUAL (21:25)
[2024-05-23] MEDS: Propranolol HCL 10 MG TABLET PO (21:25)
[2024-05-23] MEDS: traZODone HCL 50 MG TABLET PO (21:25)
[2024-05-23] MEDS: Sucralfate Oral Suspension 1 GM/10 ML ORAL.SUSP PO (21:26)
[2024-05-23] MEDS: lamoTRIgine 25 MG TABLET 50 MG PO (21:26)
[2024-05-24 08:29] VITALS: BP 103/50; PULSE 57; RESP 16; TEMP 36.3; O2SAT 95
[2024-05-24] MEDS: Sucralfate Oral Suspension 1 GM/10 ML ORAL.SUSP PO ×2 (08:45→21:31)
[2024-05-24] MEDS: Folic Acid 1 MG TABLET PO (08:46)
[2024-05-24] MEDS: Escitalopram Oxalate 20 MG TABLET PO (08:46)
[2024-05-24] MEDS: Omeprazole 40 MG CAPSULE.DR PO ×2 (08:46→16:44)
[2024-05-24] MEDS: Cyanocobalamin (Vitamin B-12) 1,000 MCG TABLET 1000 MCG PO (08:46)
[2024-05-24] MEDS: Thiamine HCL 100 MG TABLET PO (08:46)
[2024-05-24] MEDS: Docusate Sodium 100 MG CAPSULE PO (08:46)
[2024-05-24] MEDS: lamoTRIgine 25 MG TABLET 50 MG PO ×2 (08:46→21:31)
[2024-05-24] MEDS: Buprenorphine/Naloxone 8/2 mg FILM 1 FILM SUBLINGUAL ×2 (09:30→21:31)
[2024-05-24 10:13] VITALS: BP 111/59
--- NOTE | 2024-05-24 11:50 | P.HPPS_ITS ---
HPI Date of Service: 05/24/24 Chief Complaint: Depressed Sources of Information: patient interviewed, chart reviewed and crisis/core team assessment reviewed Additional Sources of Information: Seen 11am HPI Subjective Notes: Lambert Warning and Conditional Voluntary Healthcare Proxy: No Guardianship: No Medical Problems Affecting Mental Status: No Narrative: 49 yo male, DC from 05/21 to locate his car, and return for community admit to [facility] 05/22 presents with relapse, SI. Pt did not obtain OP prescriptions post DC, drank a quart of hard liquor and used crack QUARRY BOSS. Pt transferred from medicine. Recent admit to psych s/p ICU admit post OD. Section 35 was planned, however, pt worked with the team on CSS admission until 05/21 when he changed his mind and requested DC, stating he would admit to [facility] from the community after he secured his vehicle. Hx of seizures and over 15 suicide attempts resulting in medical admissions, intubations, all with extensive substance use as precipitant he reports. Pt is in bed, awake, when we met. My car is gone. I have no car now. Discussed with pt his relapse, return, medical admit. Today his focus is on his car and feeling ill due to detox sx. Pt is aware we will proceed with Section 35 as he stabilizes. Past Psychiatric History: Inpt: several past psychiatric admission. Last one was back in 2023 at [facility]. OP: Chelsy Saleh- OP psychotherapist but has not seen patient in person for about one year, nor has had phone contact in several months. Psychotropic medications prescribed by Dr. Doyle Bermudez through [facility] program for dual dx services. Both are terminated with pt he reports Hx of suicide attempts: several OD attempts, last one was in Oct 2023. 15 attempts pt reports Past medication trials: lexapro, adderall, propanolol- he has overdosed on these by history along with gabapentin Medical Evaluation Reviewed: Yes FORMERLY [facility], [facility] Medical History (Updated 05/24/24 @ 16:52 by Jennifer Peck APRN) Grief reaction Dysphagia History of suicidal ideation Cocaine use disorder, moderate, dependence Opioid use disorder Mood disorder Family History: Father-addiction Social History: He is . He has a 17 year-old daughter with whom he reports has contact. No other family member reported. Born in [place]. Raised in [place] by his father Five siblings, estranged BA from [place], [place] for 7 years, , one daughter, age 17 Substance History: Alcohol and Crack prior to admission Trauma History: sexual/emotional/physical/verbal, details not provided Traumatic upbringing and childhood pt reports Diagnostics Vital Signs (24Hr): Vital Signs - 24 hr 05/23/24 18:25 05/23/24 19:51 05/24/24 08:29 Temperature 97.3 F 97.3 F 97.4 F Pulse Rate 68 68 57 Respiratory Rate 18 16 Blood Pressure 117/71 117/71 103/50 L Pulse Oximetry 97 97 95 Oxygen Delivery Method Room Air Room Air Room Air 05/24/24 10:13 Temperature Pulse Rate Respiratory Rate Blood Pressure 111/59 L Pulse Oximetry Oxygen Delivery Method Meds/Allergies Meds Home Medications ?Medication ?Instructions ?Recorded ?Confirmed ?Type buprenorphine 8 mg-naloxone 2 mg 1 film sublingual BID 05/22/24 05/22/24 History sublingual film (Suboxone) cyanocobalamin (vitamin B-12) 1,000 mcg PO DAILY 05/22/24 05/22/24 History 1,000 mcg tablet propranolol 10 mg tablet 10 mg PO BID 05/22/24 05/22/24 History quetiapine 200 mg tablet 200 mg PO BEDTIME 05/22/24 05/22/24 History sucralfate 100 mg/mL oral 10 ml PO BID 05/22/24 05/22/24 History suspension thiamine HCl (vitamin B1) 100 mg 100 mg PO DAILY 05/22/24 05/22/24 History tablet Allergies Allergies Allergy/AdvReac Type Severity Reaction Status Date / Time No Known Allergies Allergy Verified 05/22/24 04:34 Mental Status Exam Mental Status Exam Patient Appearance: Fatigued and Disheveled Patient Orientation: Person, Place, Time and Situation Level of Consciousness: Alert Patient Behavior: Talkative Mood Description: Depressed Affect Description: Flat Patient Cognition Impaired: No Ability to Follow Directions: Good Speech Pattern: Spontaneous Speech Memory Description: Remote Impaired Hallucinations: None Delusions: Not Present Perceptual Disturbances: Depersonalization Thought Process: Rumination Thought Content: positive for Circumstantial, positive for Perseveration and positive for Suicidal Ideation Depressive Symptoms: Increased Irritability and Thoughts of /Suicide Judgement: Poor Assessment & Plan Assessment & Plan (1) MDD (major depressive disorder), recurrent episode, severe: Status: Acute Code(s): F33.2 - Major depressive disorder, recurrent severe without psychotic features (2) Opioid use disorder: Status: Acute Code(s): F11.90 - Opioid use, unspecified, uncomplicated (3) Polysubstance (including opioids) dependence with physiological dependence: Status: Acute Code(s): F19.20 - Other psychoactive substance dependence, uncomplicated (4) Alcohol use disorder, moderate, dependence: Status: Acute Code(s): F10.20 - Alcohol dependence, uncomplicated (5) Grief reaction: Status: Acute Code(s): F43.21 - Adjustment disorder with depressed mood Plan Admit, CV, 15 minute checks Continue current regime Re-start Klonopin prn Diagnostics as needed Repeat EKG 05/25 Collateral contact Encourage full milieu as detox subsides Section 35 Patient educated on: therapeutic strategies Reason for continued inpatient stay Substantial Risk for: rapid decompensation and med/psych decompensation Statement Statement: I have reviewed the history and physical and performed a pertinent examination on my patient. No changes have occurred unless specified. If the History and Physical was not performed prior to admission, the Hospitalist's service will be consulted for completing the admission physical. Time Spent With Patient Time: Total time managing care of this patient today ____ minutes.
[2024-05-24] MEDS: clonazePAM 0.5 MG TABLET PO (16:44)
[2024-05-24 20:00] VITALS: BP 134/67; PULSE 55; RESP 18; TEMP 36.2; O2SAT 95
[2024-05-24] MEDS: Propranolol HCL 10 MG TABLET PO (21:31)
[2024-05-24] MEDS: QUEtiapine Fumarate 200 MG TABLET PO (21:31)
[2024-05-24] MEDS: traZODone HCL 50 MG TABLET PO (21:32)
[2024-05-25] MEDS: Omeprazole 40 MG CAPSULE.DR PO ×2 (07:18→17:41)
[2024-05-25 08:00] VITALS: BP 106/66; PULSE 66; RESP 16; TEMP 36.6; O2SAT 94
[2024-05-25 08:51] VITALS: BP 101/64; PULSE 66
[2024-05-25] MEDS: Cyanocobalamin (Vitamin B-12) 1,000 MCG TABLET 1000 MCG PO (08:51)
[2024-05-25] MEDS: Propranolol HCL 10 MG TABLET PO ×2 (08:51→21:27)
[2024-05-25] MEDS: Buprenorphine/Naloxone 8/2 mg FILM 1 FILM SUBLINGUAL ×2 (08:51→21:32)
[2024-05-25] MEDS: Folic Acid 1 MG TABLET PO (08:52)
[2024-05-25] MEDS: Docusate Sodium 100 MG CAPSULE PO ×2 (08:52→21:27)
[2024-05-25] MEDS: Multivitamin TABLET 1 TAB PO (08:52)
[2024-05-25] MEDS: Thiamine HCL 100 MG TABLET PO (08:52)
[2024-05-25] MEDS: lamoTRIgine 25 MG TABLET 50 MG PO ×2 (08:52→21:26)
[2024-05-25] MEDS: Escitalopram Oxalate 20 MG TABLET PO (08:52)
[2024-05-25] MEDS: clonazePAM 0.5 MG TABLET PO ×3 (09:03→21:33)
--- NOTE | 2024-05-25 09:37 | HO.PSYCHPN ---
Subjective Subjective Date of Service: 05/25/24 Reason For Visit: Depressed Subjective Notes: Conditional Voluntary Healthcare Proxy: No Guardianship: No Medical Problems Affecting Mental Status: No Interim History: I wont go through the court-I will decide if and when I do rehab. I will decide when I leave, not the court. Detox progressing, scheduled meds being added back in. Pt needing rehab, but is resistant. Depressed today. Denies SI,HI. Anergic, resistant. Medication Compliance: Yes Side effects from medications: No Attending Groups: No Review of Systems Acute medical concerns: No Review of Systems Review of Systems Denies Mental Status Exam Mental Status Exam Patient Appearance: Fatigued and Disheveled Patient Orientation: Person, Place, Time and Situation Level of Consciousness: Alert Patient Behavior: Talkative Mood Description: Depressed Affect Description: Flat Patient Cognition Impaired: No Ability to Follow Directions: Good Speech Pattern: Spontaneous Speech Memory Description: Remote Impaired Hallucinations: None Delusions: Not Present Perceptual Disturbances: Depersonalization Thought Process: Rumination Thought Content: positive for Circumstantial, positive for Perseveration and positive for Suicidal Ideation (denies) Depressive Symptoms: Increased Irritability and Thoughts of /Suicide (denies) Judgement: Poor Diagnostics Vital Signs (24Hr): Vital Signs - 24 hr 05/24/24 10:13 05/24/24 20:00 05/25/24 08:00 Temperature 97.2 F 97.9 F Pulse Rate 55 66 Respiratory Rate 18 16 Blood Pressure 111/59 L 134/67 106/66 Pulse Oximetry 95 94 Oxygen Delivery Method Room Air Room Air 05/25/24 08:51 Temperature Pulse Rate 66 Respiratory Rate Blood Pressure 101/64 Pulse Oximetry Oxygen Delivery Method Medications Medications Current Medications Acetaminophen (Acetaminophen 325 Mg Tablet) 650 mg PO Q6H PRN PRN Reason: Headache/Pain, Scale 1-10 Al Hydroxide/Mg Hydroxide (Magnesium Hydrox/Alum Hydrox 30 Ml Oral.Susp) 30 ml PO Q6H PRN PRN Reason: Heartburn/Nausea Buprenorphine/Naloxone (Buprenorphine/Naloxone 8/2 Mg Film) 1 film SUBLINGUAL BID MARIANN Last Admin: 05/25/24 08:51 Dose: 1 film Calcium Carbonate (Calcium Carbonate 750 Mg Tab.Chew) 750 mg PO Q4H PRN PRN Reason: Heartburn Clonazepam (Clonazepam 0.5 Mg Tablet) 0.5 mg PO TID PRN PRN Reason: Anxiety Last Admin: 05/25/24 09:03 Dose: 0.5 mg Cyanocobalamin (Cyanocobalamin (Vitamin B-12) 1,000 Mcg Tablet) 1,000 mcg PO DAILY [facility] Last Admin: 05/25/24 08:51 Dose: 1,000 mcg Docusate Sodium (Docusate Sodium 100 Mg Capsule) 100 mg PO BID [facility] Last Admin: 05/25/24 08:52 Dose: 100 mg Escitalopram Oxalate (Escitalopram Oxalate 20 Mg Tablet) 20 mg PO DAILY [facility] Last Admin: 05/25/24 08:52 Dose: 20 mg Folic Acid (Folic Acid 1 Mg Tablet) 1 mg PO DAILY [facility] Last Admin: 05/25/24 08:52 Dose: 1 mg Hydroxyzine HCl (Hydroxyzine Hcl 25 Mg Tablet) 25 mg PO Q6H PRN PRN Reason: mild anxiety Lamotrigine (Lamotrigine 25 Mg Tablet) 50 mg PO BID [facility] Last Admin: 05/25/24 08:52 Dose: 50 mg Magnesium Hydroxide (Milk Of Magnesia 30 Ml Oral.Susp) 30 ml PO DAILY PRN PRN Reason: Constipation Melatonin (Melatonin 3 Mg Tablet) 6 mg PO BEDTIME PRN PRN Reason: Insomnia Multivitamins/Vitamin C (Multivitamin Tablet) 1 tab PO DAILY [facility] Last Admin: 05/25/24 08:52 Dose: 1 tab Nicotine (Nicotine 21 Mg Patch.Td24) 21 mg TRANSDERMA DAILY PRN PRN Reason: smoking cessation Nicotine Polacrilex (Nicotine Polacrilex 2 Mg Gum) 4 mg BUCCAL Q2H PRN PRN Reason: Nicotine Cravings Omeprazole (Omeprazole 40 Mg Capsule.Dr) 40 mg PO BID@0630,1630 [facility] Last Admin: 05/25/24 07:18 Dose: 40 mg Polyethylene Glycol (Polyethylene Glycol 3350 17 Gm Powd.Pack) 17 gm PO DAILY PRN PRN Reason: Constipation Polyethylene Glycol (Polyethylene Glycol 3350 17 Gm Powd.Pack) 17 gm PO DAILY [facility] Last Admin: 05/25/24 08:52 Dose: Not Given Propranolol HCl (Propranolol Hcl 10 Mg Tablet) 10 mg PO BID [facility]; Protocol Last Admin: 05/25/24 08:51 Dose: 10 mg Quetiapine Fumarate (Quetiapine Fumarate 200 Mg Tablet) 200 mg PO BEDTIME [facility] Last Admin: 05/24/24 21:31 Dose: 200 mg Sucralfate (Sucralfate Oral Suspension 1 Gm/10 Ml Oral.Susp) 1 gm PO BID [facility] Last Admin: 05/25/24 08:53 Dose: Not Given Thiamine HCl (Thiamine Hcl 100 Mg Tablet) 100 mg PO DAILY [facility] Last Admin: 05/25/24 08:52 Dose: 100 mg Trazodone HCl (Trazodone Hcl 50 Mg Tablet) 50 mg PO BEDTIME MRX1 PRN PRN Reason: Insomnia Last Admin: 05/24/24 21:32 Dose: 50 mg Allergies Allergies Allergy/AdvReac Type Severity Reaction Status Date / Time No Known Allergies Allergy Verified 05/22/24 04:34 Assessment & Plan Assessment & Plan (1) MDD (major depressive disorder), recurrent episode, severe: Status: Acute Code(s): F33.2 - Major depressive disorder, recurrent severe without psychotic features (2) Opioid use disorder: Status: Acute Code(s): F11.90 - Opioid use, unspecified, uncomplicated (3) Polysubstance (including opioids) dependence with physiological dependence: Status: Acute Code(s): F19.20 - Other psychoactive substance dependence, uncomplicated (4) Alcohol use disorder, moderate, dependence: Status: Acute Code(s): F10.20 - Alcohol dependence, uncomplicated (5) Grief reaction: Status: Acute Code(s): F43.21 - Adjustment disorder with depressed mood Plan Admit, CV, 15 minute checks Continue current regime Re-start Klonopin prn Diagnostics as needed Repeat EKG 05/25 Collateral contact Encourage full milieu as detox subsides Section 35 05/25- Contine regime/plan Reason for continued inpatient stay Substantial Risk for: rapid decompensation and med/psych decompensation Time Spent With Patient Time: Total time managing care of this patient today ____ minutes.
[2024-05-25] MEDS: Amphetamine Mixed Salts 20 MG TABLET PO ×2 (15:24→17:41)
--- NOTE | 2024-05-25 18:03 | PC.NURSE ---
pt refused to provide urine sample despite numerous attempts
[2024-05-25] MEDS: QUEtiapine Fumarate 200 MG TABLET PO (21:26)
[2024-05-25] MEDS: Sucralfate Oral Suspension 1 GM/10 ML ORAL.SUSP PO (21:27)
[2024-05-26] MEDS: Omeprazole 40 MG CAPSULE.DR PO ×2 (06:42→16:31)
[2024-05-26 08:18] VITALS: BP 104/62; PULSE 54; TEMP 36.3; O2SAT 96
[2024-05-26] MEDS: Propranolol HCL 10 MG TABLET PO ×2 (08:59→20:28)
[2024-05-26] MEDS: Buprenorphine/Naloxone 8/2 mg FILM 1 FILM SUBLINGUAL ×2 (08:59→20:29)
[2024-05-26] MEDS: lamoTRIgine 25 MG TABLET 50 MG PO ×2 (08:59→20:29)
[2024-05-26] MEDS: Escitalopram Oxalate 20 MG TABLET PO (08:59)
[2024-05-26] MEDS: clonazePAM 0.5 MG TABLET PO ×3 (09:03→20:28)
--- NOTE | 2024-05-26 09:38 | P.PNPSI_ITS ---
Subjective Subjective Date of Service: 05/26/24 Reason For Visit: Depressed Subjective Notes: Conditional Voluntary Interim History: You may be right, I may need a 35. I will let you know. More active in milieu, reports feeling better, more insight into current issues. Medication Compliance: Yes Side effects from medications: No Attending Groups: Intermittent Review of Systems Acute medical concerns: No Review of Systems Review of Systems Denies Mental Status Exam Mental Status Exam Patient Appearance: Appropriate Patient Orientation: Person, Place, Time and Situation Level of Consciousness: Alert Patient Behavior: Talkative Mood Description: Constricted Affect Description: Flat Patient Cognition Impaired: No Ability to Follow Directions: Good Speech Pattern: Spontaneous Speech Memory Description: Remote Impaired Hallucinations: None Delusions: Not Present Perceptual Disturbances: Depersonalization Thought Process: Rumination Thought Content: positive for Circumstantial, positive for Perseveration and positive for Suicidal Ideation (denies) Depressive Symptoms: Thoughts of /Suicide (denies) Judgement: Fair Diagnostics Vital Signs (24Hr): Vital Signs - 24 hr 05/26/24 08:18 Temperature 97.3 F Pulse Rate 54 Blood Pressure 104/62 Pulse Oximetry 96 Oxygen Delivery Method Room Air Medications Medications Current Medications Acetaminophen (Acetaminophen 325 Mg Tablet) 650 mg PO Q6H PRN PRN Reason: Headache/Pain, Scale 1-10 Al Hydroxide/Mg Hydroxide (Magnesium Hydrox/Alum Hydrox 30 Ml Oral.Susp) 30 ml PO Q6H PRN PRN Reason: Heartburn/Nausea Amphetamine/Dextroamphetamine (Amphetamine Mixed Salts 20 Mg Tablet) 20 mg PO 1400,1700 [facility] Last Admin: 05/25/24 17:41 Dose: 20 mg Buprenorphine/Naloxone (Buprenorphine/Naloxone 8/2 Mg Film) 1 film SUBLINGUAL BID [facility] Last Admin: 05/26/24 08:59 Dose: 1 film Calcium Carbonate (Calcium Carbonate 750 Mg Tab.Chew) 750 mg PO Q4H PRN PRN Reason: Heartburn Clonazepam (Clonazepam 0.5 Mg Tablet) 0.5 mg PO TID PRN PRN Reason: Anxiety Last Admin: 05/26/24 09:03 Dose: 0.5 mg Cyanocobalamin (Cyanocobalamin (Vitamin B-12) 1,000 Mcg Tablet) 1,000 mcg PO DAILY [facility] Last Admin: 05/26/24 09:05 Dose: Not Given Docusate Sodium (Docusate Sodium 100 Mg Capsule) 100 mg PO BID [facility] Last Admin: 05/26/24 09:05 Dose: Not Given Escitalopram Oxalate (Escitalopram Oxalate 20 Mg Tablet) 20 mg PO DAILY [facility] Last Admin: 05/26/24 08:59 Dose: 20 mg Folic Acid (Folic Acid 1 Mg Tablet) 1 mg PO DAILY [facility] Last Admin: 05/26/24 09:05 Dose: Not Given Hydroxyzine HCl (Hydroxyzine Hcl 25 Mg Tablet) 25 mg PO Q6H PRN PRN Reason: mild anxiety Lamotrigine (Lamotrigine 25 Mg Tablet) 50 mg PO BID [facility] Last Admin: 05/26/24 08:59 Dose: 50 mg Magnesium Hydroxide (Milk Of Magnesia 30 Ml Oral.Susp) 30 ml PO DAILY PRN PRN Reason: Constipation Melatonin (Melatonin 3 Mg Tablet) 6 mg PO BEDTIME PRN PRN Reason: Insomnia Multivitamins/Vitamin C (Multivitamin Tablet) 1 tab PO DAILY [facility] Last Admin: 05/26/24 09:05 Dose: Not Given Nicotine (Nicotine 21 Mg Patch.Td24) 21 mg TRANSDERMA DAILY PRN PRN Reason: smoking cessation Nicotine Polacrilex (Nicotine Polacrilex 2 Mg Gum) 4 mg BUCCAL Q2H PRN PRN Reason: Nicotine Cravings Pt Owned Med ( Vyvanse 60mg Capsule ) 1 each PO DAILY [facility] Omeprazole (Omeprazole 40 Mg Capsule.Dr) 40 mg PO BID@0630,1630 [facility] Last Admin: 05/26/24 06:42 Dose: 40 mg Polyethylene Glycol (Polyethylene Glycol 3350 17 Gm Powd.Pack) 17 gm PO DAILY PRN PRN Reason: Constipation Polyethylene Glycol (Polyethylene Glycol 3350 17 Gm Powd.Pack) 17 gm PO DAILY [facility] Last Admin: 05/26/24 09:05 Dose: Not Given Propranolol HCl (Propranolol Hcl 10 Mg Tablet) 10 mg PO BID [facility]; Protocol Last Admin: 05/26/24 08:59 Dose: 10 mg Quetiapine Fumarate (Quetiapine Fumarate 200 Mg Tablet) 200 mg PO BEDTIME [facility] Last Admin: 05/25/24 21:26 Dose: 200 mg Sucralfate (Sucralfate Oral Suspension 1 Gm/10 Ml Oral.Susp) 1 gm PO BID [facility] Last Admin: 05/26/24 09:05 Dose: Not Given Thiamine HCl (Thiamine Hcl 100 Mg Tablet) 100 mg PO DAILY [facility] Last Admin: 05/26/24 09:05 Dose: Not Given Trazodone HCl (Trazodone Hcl 50 Mg Tablet) 50 mg PO BEDTIME MRX1 PRN PRN Reason: Insomnia Last Admin: 05/24/24 21:32 Dose: 50 mg Allergies Allergies Allergy/AdvReac Type Severity Reaction Status Date / Time No Known Allergies Allergy Verified 05/22/24 04:34 Assessment & Plan Assessment & Plan (1) MDD (major depressive disorder), recurrent episode, severe: Status: Acute Code(s): F33.2 - Major depressive disorder, recurrent severe without psychotic features (2) Opioid use disorder: Status: Acute Code(s): F11.90 - Opioid use, unspecified, uncomplicated (3) Polysubstance (including opioids) dependence with physiological dependence: Status: Acute Code(s): F19.20 - Other psychoactive substance dependence, uncomplicated (4) Alcohol use disorder, moderate, dependence: Status: Acute Code(s): F10.20 - Alcohol dependence, uncomplicated (5) Grief reaction: Status: Acute Code(s): F43.21 - Adjustment disorder with depressed mood Plan Admit, CV, 15 minute checks Continue current regime Re-start Klonopin prn Diagnostics as needed Repeat EKG 05/25- pt refused Collateral contact Encourage full milieu as detox subsides Section 35 05/26: Continue regime/plan Reason for continued inpatient stay Substantial Risk for: med/psych decompensation Time Spent With Patient Time: Total time managing care of this patient today ____ minutes.
[2024-05-26] MEDS: LISDEXAMFETAMINE 60 MG 1 EACH PO (10:15)
[2024-05-26] MEDS: Amphetamine Mixed Salts 20 MG TABLET PO ×2 (13:07→16:30)
[2024-05-26] MEDS: Nicotine Polacrilex 2 MG GUM 4 MG BUCCAL ×3 (14:43→19:37)
--- NOTE | 2024-05-26 17:10 | PM.EVENT ---
Event Note Date of Service: 05/26/24 Event Note: Pt is a 49-year-old male with a PMH significant for polysubstance use disorder including IVDU admitted [facility] with hospitalist consult for lesion under left buttock. Pt states has had a ?boil? the past few days. Admits to a hx of abscesses secondary to IVDU, though never in that area. States area has been sore and painful, and draining purulent discharge since early this morning. Physical exam reveals open and draining lesion under left buttock surrounded by erythema, warmth, and induration. No fluctuance noted. Discharge currently serosanguineous without purulence. As abscess is now open and draining, no indication for surgical consult. Will treat with Augmentin 500 mg p.o. b.i.d. x5 days. Time Spent With Patient Time: Total time managing care of this patient today ____ minutes.
[2024-05-26] MEDS: Amoxicillin/Potassium Clav 500 MG TABLET PO (17:33)
[2024-05-26] MEDS: hydrOXYzine HCL 25 MG TABLET PO (19:02)
[2024-05-26 20:00] VITALS: BP 150/89; PULSE 100; RESP 16; TEMP 36.3; O2SAT 98
[2024-05-26] MEDS: QUEtiapine Fumarate 200 MG TABLET PO (20:28)
[2024-05-26] MEDS: Sucralfate Oral Suspension 1 GM/10 ML ORAL.SUSP PO (20:29)
[2024-05-26] MEDS: Docusate Sodium 100 MG CAPSULE PO (20:29)
[2024-05-27] MEDS: Omeprazole 40 MG CAPSULE.DR PO ×2 (06:39→16:14)
[2024-05-27 08:09] VITALS: BP 120/60; PULSE 60; TEMP 37.2; O2SAT 96
--- NOTE | 2024-05-27 08:18 | P.PNPSI_ITS ---
Subjective Subjective Date of Service: 05/27/24 Reason For Visit: Depressed Interim History: Met with patient. Considering section 35 for IVDA. Was sent [facility] just last month, after he almost , spent 9 days on life support for what sounds like status epilepticus after relapsing on substances, precipitated by the rapid decline in his mother's health. She was diagnosed with ALS last year and 10 months later. She was my best friend, and the person I could always go to when I needed help . She was there for him 9 years ago when he went through a difficult divorce and was in and out of sobriety. He has been reaching out to its 17-year-old daughter who is a DRESSING ROOM [employer]END[employer] and who is very supportive and understanding of her father's struggles with addiction. He reports intermittent SI without plan or intent but cites his daughter as a protective factor ?I do not want to give up on her?. He reports mood as depressed, sad and a lot of anxiety.? Denies AH/VH/HI. Diagnostics Vital Signs (24Hr): Vital Signs - 24 hr 05/26/24 20:00 05/27/24 08:09 Temperature 97.4 F 98.9 F Pulse Rate 100 60 Respiratory Rate 16 Blood Pressure 150/89 H 120/60 Pulse Oximetry 98 96 Oxygen Delivery Method Room Air Room Air Medications Medications Current Medications Acetaminophen (Acetaminophen 325 Mg Tablet) 650 mg PO Q6H PRN PRN Reason: Headache/Pain, Scale 1-10 Al Hydroxide/Mg Hydroxide (Magnesium Hydrox/Alum Hydrox 30 Ml Oral.Susp) 30 ml PO Q6H PRN PRN Reason: Heartburn/Nausea Amoxicillin/Clavulanate Potassium (Amoxicillin/Potassium Clav 500 Mg Tablet) 500 mg PO Q12H [facility] Stop: 05/31/24 09:01 Amphetamine/Dextroamphetamine (Amphetamine Mixed Salts 20 Mg Tablet) 20 mg PO 1400,1700 [facility] Last Admin: 05/26/24 16:30 Dose: 20 mg Buprenorphine/Naloxone (Buprenorphine/Naloxone 8/2 Mg Film) 1 film SUBLINGUAL BID [facility] Last Admin: 05/26/24 20:29 Dose: 1 film Calcium Carbonate (Calcium Carbonate 750 Mg Tab.Chew) 750 mg PO Q4H PRN PRN Reason: Heartburn Clonazepam (Clonazepam 0.5 Mg Tablet) 0.5 mg PO TID PRN PRN Reason: Anxiety Last Admin: 05/26/24 20:28 Dose: 0.5 mg Cyanocobalamin (Cyanocobalamin (Vitamin B-12) 1,000 Mcg Tablet) 1,000 mcg PO DAILY [facility] Last Admin: 05/26/24 09:05 Dose: Not Given Docusate Sodium (Docusate Sodium 100 Mg Capsule) 100 mg PO BID [facility] Last Admin: 05/26/24 20:29 Dose: 100 mg Escitalopram Oxalate (Escitalopram Oxalate 20 Mg Tablet) 20 mg PO DAILY [facility] Last Admin: 05/26/24 08:59 Dose: 20 mg Folic Acid (Folic Acid 1 Mg Tablet) 1 mg PO DAILY [facility] Last Admin: 05/26/24 09:05 Dose: Not Given Hydroxyzine HCl (Hydroxyzine Hcl 25 Mg Tablet) 25 mg PO Q6H PRN PRN Reason: mild anxiety Last Admin: 05/26/24 19:02 Dose: 25 mg Lamotrigine (Lamotrigine 25 Mg Tablet) 50 mg PO BID [facility] Last Admin: 05/26/24 20:29 Dose: 50 mg Magnesium Hydroxide (Milk Of Magnesia 30 Ml Oral.Susp) 30 ml PO DAILY PRN PRN Reason: Constipation Melatonin (Melatonin 3 Mg Tablet) 6 mg PO BEDTIME PRN PRN Reason: Insomnia Multivitamins/Vitamin C (Multivitamin Tablet) 1 tab PO DAILY [facility] Last Admin: 05/26/24 09:05 Dose: Not Given Nicotine (Nicotine 21 Mg Patch.Td24) 21 mg TRANSDERMA DAILY PRN PRN Reason: smoking cessation Nicotine Polacrilex (Nicotine Polacrilex 2 Mg Gum) 4 mg BUCCAL Q2H PRN PRN Reason: Nicotine Cravings Last Admin: 05/26/24 19:37 Dose: 4 mg Pt Owned Med ( Vyvanse 60mg Capsule ) 1 each PO DAILY [facility] Last Admin: 05/26/24 10:15 Dose: 1 each Omeprazole (Omeprazole 40 Mg Capsule.Dr) 40 mg PO BID@0630,1630 [facility] Last Admin: 05/27/24 06:39 Dose: 40 mg Polyethylene Glycol (Polyethylene Glycol 3350 17 Gm Powd.Pack) 17 gm PO DAILY PRN PRN Reason: Constipation Polyethylene Glycol (Polyethylene Glycol 3350 17 Gm Powd.Pack) 17 gm PO DAILY [facility] Last Admin: 05/26/24 09:05 Dose: Not Given Propranolol HCl (Propranolol Hcl 10 Mg Tablet) 10 mg PO BID [facility]; Protocol Last Admin: 05/26/24 20:28 Dose: 10 mg Quetiapine Fumarate (Quetiapine Fumarate 200 Mg Tablet) 200 mg PO BEDTIME [facility] Last Admin: 05/26/24 20:28 Dose: 200 mg Sucralfate (Sucralfate Oral Suspension 1 Gm/10 Ml Oral.Susp) 1 gm PO BID [facility] Last Admin: 05/26/24 20:29 Dose: 1 gm Thiamine HCl (Thiamine Hcl 100 Mg Tablet) 100 mg PO DAILY [facility] Last Admin: 05/26/24 09:05 Dose: Not Given Trazodone HCl (Trazodone Hcl 50 Mg Tablet) 50 mg PO BEDTIME MRX1 PRN PRN Reason: Insomnia Last Admin: 05/24/24 21:32 Dose: 50 mg Allergies Allergies Allergy/AdvReac Type Severity Reaction Status Date / Time No Known Allergies Allergy Verified 05/22/24 04:34 Assessment & Plan Assessment & Plan (1) MDD (major depressive disorder), recurrent episode, severe: Status: Acute Code(s): F33.2 - Major depressive disorder, recurrent severe without psychotic features (2) Opioid use disorder: Status: Acute Code(s): F11.90 - Opioid use, unspecified, uncomplicated (3) Polysubstance (including opioids) dependence with physiological dependence: Status: Acute Code(s): F19.20 - Other psychoactive substance dependence, uncomplicated (4) Alcohol use disorder, moderate, dependence: Status: Acute Code(s): F10.20 - Alcohol dependence, uncomplicated (5) Grief reaction: Status: Acute Code(s): F43.21 - Adjustment disorder with depressed mood Plan Admit, CV, 15 minute checks Continue current regime Re-start Klonopin prn Diagnostics as needed Repeat EKG 05/25- pt refused Collateral contact Encourage full milieu as detox subsides Section 35 05/26: Continue regime/plan 05/27: continue trt Reason for continued inpatient stay Substantial Risk for: med/psych decompensation Time Spent With Patient Time: Total time managing care of this patient today ____ minutes.
[2024-05-27] MEDS: LISDEXAMFETAMINE 60 MG 1 EACH PO (08:53)
[2024-05-27] MEDS: Propranolol HCL 10 MG TABLET PO ×2 (08:53→19:51)
[2024-05-27] MEDS: lamoTRIgine 25 MG TABLET 50 MG PO ×2 (08:53→19:51)
[2024-05-27] MEDS: Amoxicillin/Potassium Clav 500 MG TABLET PO ×2 (08:53→19:51)
[2024-05-27] MEDS: Buprenorphine/Naloxone 8/2 mg FILM 1 FILM SUBLINGUAL ×2 (08:53→20:00)
[2024-05-27] MEDS: Escitalopram Oxalate 20 MG TABLET PO (08:53)
[2024-05-27] MEDS: clonazePAM 0.5 MG TABLET PO ×3 (08:58→19:51)
[2024-05-27] MEDS: Nicotine Polacrilex 2 MG GUM 4 MG BUCCAL ×4 (11:38→19:02)
[2024-05-27] MEDS: Amphetamine Mixed Salts 20 MG TABLET PO ×2 (13:28→16:14)
[2024-05-27] MEDS: hydrOXYzine HCL 25 MG TABLET PO (19:00)
[2024-05-27 19:51] VITALS: BP 160/88; PULSE 95
[2024-05-27] MEDS: QUEtiapine Fumarate 200 MG TABLET PO (19:51)
[2024-05-27] MEDS: traZODone HCL 50 MG TABLET PO (19:51)
[2024-05-27 20:00] VITALS: BP 160/88; PULSE 95; RESP 16; TEMP 36.3; O2SAT 98
[2024-05-28 08:00] VITALS: BP 106/59; PULSE 56; RESP 18; TEMP 37.1; O2SAT 96
[2024-05-28] MEDS: Escitalopram Oxalate 20 MG TABLET PO (08:23)
[2024-05-28] MEDS: LISDEXAMFETAMINE 60 MG 1 EACH PO (08:29)
[2024-05-28] MEDS: Buprenorphine/Naloxone 8/2 mg FILM 1 FILM SUBLINGUAL ×2 (08:31→20:21)
[2024-05-28] MEDS: clonazePAM 0.5 MG TABLET PO (08:49)
[2024-05-28 08:50] VITALS: BP 106/59; PULSE 55
[2024-05-28] MEDS: Nicotine Polacrilex 2 MG GUM 4 MG BUCCAL ×4 (10:54→20:24)
[2024-05-28] MEDS: Amoxicillin/Potassium Clav 500 MG TABLET PO ×2 (10:54→20:22)
--- NOTE | 2024-05-28 12:02 | HO.PSYCHPN ---
Subjective Subjective Date of Service: 05/28/24 Reason For Visit: Depressed Subjective Notes: Conditional Voluntary Healthcare Proxy: No Guardianship: No Medical Problems Affecting Mental Status: No Interim History: Anxious-asks that Klonopin be increased which was completed. Asking about Ketamine resources at [facility] and locally. This had been recommended in the past. Denies SI, HI, AH,VH. Acknowledges depression. Reports he has located his car. It is currently impounded and he is concerned about costs. Encouraged to ask family for assistance. Asks about discharge- I talked with him again about our concern for his safety and that team is looking for a program to help him gather longer term abstinence from substances. Medication Compliance: Yes Side effects from medications: No Attending Groups: Intermittent Review of Systems Acute medical concerns: No Medical Review of Systems: unchanged Review of Systems Review of Systems Denies Mental Status Exam Mental Status Exam Patient Appearance: Appropriate Patient Orientation: Person, Place, Time and Situation Level of Consciousness: Alert Patient Behavior: Talkative Mood Description: Constricted Affect Description: Flat Patient Cognition Impaired: No Ability to Follow Directions: Good Speech Pattern: Spontaneous Speech Memory Description: Remote Impaired Hallucinations: None Delusions: Not Present Perceptual Disturbances: Depersonalization Thought Process: Rumination Thought Content: positive for Circumstantial, positive for Perseveration and positive for Suicidal Ideation (denies) Depressive Symptoms: Thoughts of /Suicide (denies) Judgement: Fair Diagnostics Vital Signs (24Hr): Vital Signs - 24 hr 05/27/24 19:51 05/27/24 20:00 05/28/24 08:00 Temperature 97.4 F 98.8 F Pulse Rate 95 95 56 Respiratory Rate 16 18 Blood Pressure 160/88 H 160/88 H 106/59 L Pulse Oximetry 98 96 Oxygen Delivery Method Room Air Room Air 05/28/24 08:50 Temperature Pulse Rate 55 Respiratory Rate Blood Pressure 106/59 L Pulse Oximetry Oxygen Delivery Method Medications Medications Current Medications Acetaminophen (Acetaminophen 325 Mg Tablet) 650 mg PO Q6H PRN PRN Reason: Headache/Pain, Scale 1-10 Al Hydroxide/Mg Hydroxide (Magnesium Hydrox/Alum Hydrox 30 Ml Oral.Susp) 30 ml PO Q6H PRN PRN Reason: Heartburn/Nausea Amoxicillin/Clavulanate Potassium (Amoxicillin/Potassium Clav 500 Mg Tablet) 500 mg PO Q12H [facility] Stop: 05/31/24 09:01 Last Admin: 05/28/24 10:54 Dose: 500 mg Amphetamine/Dextroamphetamine (Amphetamine Mixed Salts 20 Mg Tablet) 20 mg PO 1400,1700 [facility] Last Admin: 05/27/24 16:14 Dose: 20 mg Buprenorphine/Naloxone (Buprenorphine/Naloxone 8/2 Mg Film) 1 film SUBLINGUAL BID [facility] Last Admin: 05/28/24 08:31 Dose: 1 film Calcium Carbonate (Calcium Carbonate 750 Mg Tab.Chew) 750 mg PO Q4H PRN PRN Reason: Heartburn Clonazepam (Clonazepam 0.5 Mg Tablet) 0.5 mg PO TID PRN PRN Reason: Anxiety Last Admin: 05/28/24 08:49 Dose: 0.5 mg Cyanocobalamin (Cyanocobalamin (Vitamin B-12) 1,000 Mcg Tablet) 1,000 mcg PO DAILY [facility] Last Admin: 05/28/24 08:29 Dose: Not Given Docusate Sodium (Docusate Sodium 100 Mg Capsule) 100 mg PO BID [facility] Last Admin: 05/28/24 08:29 Dose: Not Given Escitalopram Oxalate (Escitalopram Oxalate 20 Mg Tablet) 20 mg PO DAILY [facility] Last Admin: 05/28/24 08:23 Dose: 20 mg Folic Acid (Folic Acid 1 Mg Tablet) 1 mg PO DAILY [facility] Last Admin: 05/28/24 08:29 Dose: Not Given Hydroxyzine HCl (Hydroxyzine Hcl 25 Mg Tablet) 25 mg PO Q6H PRN PRN Reason: mild anxiety Last Admin: 05/27/24 19:00 Dose: 25 mg Lamotrigine (Lamotrigine 25 Mg Tablet) 50 mg PO BID [facility] Last Admin: 05/28/24 08:23 Dose: Not Given Magnesium Hydroxide (Milk Of Magnesia 30 Ml Oral.Susp) 30 ml PO DAILY PRN PRN Reason: Constipation Melatonin (Melatonin 3 Mg Tablet) 6 mg PO BEDTIME PRN PRN Reason: Insomnia Multivitamins/Vitamin C (Multivitamin Tablet) 1 tab PO DAILY [facility] Last Admin: 05/28/24 08:29 Dose: Not Given Nicotine (Nicotine 21 Mg Patch.Td24) 21 mg TRANSDERMA DAILY PRN PRN Reason: smoking cessation Nicotine Polacrilex (Nicotine Polacrilex 2 Mg Gum) 4 mg BUCCAL Q2H PRN PRN Reason: Nicotine Cravings Last Admin: 05/28/24 10:54 Dose: 4 mg Pt Owned Med ( Vyvanse 60mg Capsule ) 1 each PO DAILY [facility] Last Admin: 05/28/24 08:29 Dose: 1 each Omeprazole (Omeprazole 40 Mg Capsule.Dr) 40 mg PO BID@0630,1630 [facility] Last Admin: 05/28/24 08:29 Dose: Not Given Polyethylene Glycol (Polyethylene Glycol 3350 17 Gm Powd.Pack) 17 gm PO DAILY PRN PRN Reason: Constipation Polyethylene Glycol (Polyethylene Glycol 3350 17 Gm Powd.Pack) 17 gm PO DAILY [facility] Last Admin: 05/28/24 08:22 Dose: Not Given Propranolol HCl (Propranolol Hcl 10 Mg Tablet) 10 mg PO BID [facility]; Protocol Last Admin: 05/28/24 08:50 Dose: Not Given Quetiapine Fumarate (Quetiapine Fumarate 200 Mg Tablet) 200 mg PO BEDTIME [facility] Last Admin: 05/27/24 19:51 Dose: 200 mg Sucralfate (Sucralfate Oral Suspension 1 Gm/10 Ml Oral.Susp) 1 gm PO BID [facility] Last Admin: 05/28/24 08:22 Dose: Not Given Thiamine HCl (Thiamine Hcl 100 Mg Tablet) 100 mg PO DAILY [facility] Last Admin: 05/28/24 08:36 Dose: Not Given Trazodone HCl (Trazodone Hcl 50 Mg Tablet) 50 mg PO BEDTIME MRX1 PRN PRN Reason: Insomnia Last Admin: 05/27/24 19:51 Dose: 50 mg Allergies Allergies Allergy/AdvReac Type Severity Reaction Status Date / Time No Known Allergies Allergy Verified 05/22/24 04:34 Assessment & Plan Assessment & Plan (1) MDD (major depressive disorder), recurrent episode, severe: Status: Acute Code(s): F33.2 - Major depressive disorder, recurrent severe without psychotic features (2) Opioid use disorder: Status: Acute Code(s): F11.90 - Opioid use, unspecified, uncomplicated (3) Polysubstance (including opioids) dependence with physiological dependence: Status: Acute Code(s): F19.20 - Other psychoactive substance dependence, uncomplicated (4) Alcohol use disorder, moderate, dependence: Status: Acute Code(s): F10.20 - Alcohol dependence, uncomplicated (5) Grief reaction: Status: Acute Code(s): F43.21 - Adjustment disorder with depressed mood Plan Admit, CV, 15 minute checks Continue current regime Re-start Klonopin prn Diagnostics as needed Repeat EKG 05/25- pt refused Collateral contact Encourage full milieu as detox subsides Section 35 05/26: Continue regime/plan 05/27: continue trt 05/28: Continue regime/care plan. Klonopin increase. Reason for continued inpatient stay Substantial Risk for: rapid decompensation Time Spent With Patient Time: Total time managing care of this patient today ____ minutes.
[2024-05-28] MEDS: Amphetamine Mixed Salts 20 MG TABLET PO ×2 (13:28→16:10)
[2024-05-28] MEDS: clonazePAM 1 MG TABLET PO ×2 (14:31→20:21)
[2024-05-28] MEDS: Omeprazole 40 MG CAPSULE.DR PO (16:10)
[2024-05-28] MEDS: hydrOXYzine HCL 25 MG TABLET PO (17:49)
[2024-05-28 20:00] VITALS: BP 139/84; PULSE 104; RESP 18; TEMP 36.9; O2SAT 99
[2024-05-28] MEDS: Propranolol HCL 10 MG TABLET PO (20:21)
[2024-05-28] MEDS: Sucralfate Oral Suspension 1 GM/10 ML ORAL.SUSP PO (20:21)
[2024-05-28] MEDS: Docusate Sodium 100 MG CAPSULE PO (20:22)
[2024-05-28] MEDS: lamoTRIgine 25 MG TABLET 50 MG PO (20:22)
[2024-05-28] MEDS: QUEtiapine Fumarate 200 MG TABLET PO (20:22)
[2024-05-29 08:14] VITALS: BP 115/82; PULSE 78; RESP 16; TEMP 36.6; O2SAT 98
[2024-05-29] MEDS: Amoxicillin/Potassium Clav 500 MG TABLET PO (08:16)
[2024-05-29] MEDS: LISDEXAMFETAMINE 60 MG 1 EACH PO (08:16)
[2024-05-29] MEDS: lamoTRIgine 25 MG TABLET 50 MG PO (08:16)
[2024-05-29] MEDS: Escitalopram Oxalate 20 MG TABLET PO (08:16)
[2024-05-29] MEDS: Omeprazole 40 MG CAPSULE.DR PO (08:16)
[2024-05-29] MEDS: Propranolol HCL 10 MG TABLET PO (08:16)
[2024-05-29] MEDS: Buprenorphine/Naloxone 8/2 mg FILM 1 FILM SUBLINGUAL (08:16)
[2024-05-29] MEDS: clonazePAM 1 MG TABLET PO (08:25)
--- NOTE | 2024-05-29 16:22 | PM.PSYDC ---
DS: Providers Provider Date of Service: 05/29/24 Date of admission: 05/23/24 18:20 Date of discharge: 05/29/24 Primary care physician: Unknown Physician Admitting clinician: Jennifer Peck Attending physician on admission: Preston Mock Consults: 05/23/24 19:06 Consult for Sitter Routine Reason for consultation: SI Consult to Psychiatry Routine Consulting Provider: [facility] Psych Covering Reason for consultation: depression /SI-recurrent admissions Has provider been notified: No ED CARE Team Crisis Consult Stat Comment: Reason for consultation: SI with plan to OD Inpt CARE Team Crisis Consult Routine Comment: Reason for consultation: si/depression, medically clear 05/26/24 15:06 Consult to Hospitalist Routine Comment: Consulting Provider: [facility] Hospitalists Reason For Exam: left buttock lesion,pain,soreness Attending physician on discharge: Preston Mock Discharging clinician: Jennifer Peck DS: Diagnosis Discharge Diagnosis (1) MDD (major depressive disorder), recurrent episode, severe: Status: Acute (2) Opioid use disorder: Status: Acute (3) Polysubstance (including opioids) dependence with physiological dependence: Status: Acute (4) Alcohol use disorder, moderate, dependence: Status: Acute (5) Grief reaction: Status: Acute DS: Medications Discharge Medications Home Medications: Home Medications ?Medication ?Instructions ?Recorded ?Confirmed buprenorphine 8 mg-naloxone 2 mg 1 film sublingual BID 05/22/24 05/22/24 sublingual film (Suboxone) cyanocobalamin (vitamin B-12) 1,000 mcg PO DAILY 05/22/24 05/22/24 1,000 mcg tablet propranolol 10 mg tablet 10 mg PO BID 05/22/24 05/22/24 quetiapine 200 mg tablet 200 mg PO BEDTIME 05/22/24 05/22/24 sucralfate 100 mg/mL oral 10 ml PO BID 05/22/24 05/22/24 suspension Previous Rx's ?Medication ?Instructions ?Recorded lisdexamfetamine 60 mg capsule 60 mg PO DAILY #30 caps 05/15/24 (Vyvanse) acetaminophen 325 mg tablet 650 mg (2 x 325 mg) PO Q6H PRN 05/21/24 Headache/Pain, Scale 1-10 #0 tabs docusate sodium 100 mg capsule 100 mg PO BID #14 caps 05/21/24 escitalopram oxalate 20 mg tablet 20 mg PO DAILY #7 tabs 05/21/24 folic acid 1 mg tablet 2 mg (2 x 1 mg) PO DAILY #14 tabs 05/21/24 omeprazole 40 mg capsule,delayed 40 mg PO BID@0630,1630 #14 caps 05/21/24 release amoxicillin 500 mg-potassium 1 tab PO Q12H #6 tabs 05/28/24 clavulanate 125 mg tablet clonazepam 1 mg tablet 1 mg PO TID PRN Anxiety #0 tabs 05/28/24 dextroamphetamine-amphetamine 20 20 mg PO 1400,1700 #0 tabs 05/28/24 mg tablet hydroxyzine HCl 25 mg tablet 25 mg PO Q6H PRN mild anxiety #0 05/28/24 tabs lamotrigine 25 mg tablet 50 mg (2 x 25 mg) PO BID #0 tabs 05/28/24 melatonin 3 mg tablet 6 mg (2 x 3 mg) PO BEDTIME PRN 05/28/24 Insomnia #0 tabs multivitamin (Daily-See tablet) 1 tab PO DAILY #0 tabs 05/28/24 nicotine (polacrilex) 2 mg gum 4 mg buccal Q2H PRN Nicotine 05/28/24 Cravings #0 ea polyethylene glycol 3350 17 gram 17 g PO DAILY #0 ea 05/28/24 oral powder packet thiamine mononitrate (vit B1) 100 100 mg PO DAILY #0 tabs 05/28/24 mg tablet trazodone 50 mg tablet 50 mg PO BEDTIME MRX1 PRN Insomnia 05/28/24 #0 tabs Mental Status Exam Mental Status Exam Patient Appearance: Appropriate Patient Orientation: Person, Place, Time and Situation Level of Consciousness: Alert Patient Behavior: Talkative Mood Description: Constricted Affect Description: Flat Patient Cognition Impaired: No Ability to Follow Directions: Good Speech Pattern: Spontaneous Speech Memory Description: Remote Impaired Hallucinations: None Delusions: Not Present Perceptual Disturbances: Depersonalization Thought Process: Rumination Thought Content: positive for Circumstantial, positive for Perseveration and positive for Suicidal Ideation (denies) Depressive Symptoms: Thoughts of /Suicide (denies) Judgement: Fair DS: Summary Hospital Course Hospital Course: Admission to adult psychiatry for exacerbation of major depression and polysubstance use disorder. Pt readmitted after his stay of 05/14/24-05/21/24. He left,stating he needed to find his car, with plans to stay in [place] arranged with family. He used substances, returned to the ER and was admitted medically. Upon admission, we discussed the severity of his illness, the amount of times he has overdosed and the need for extended treatment to assist him in longer term sobriety. Section 35 was filed, it is reported pt told the court he was in agreement for the need for this type of care, and the court accepted this request, placing pt for longer team treatment Status at Discharge Functional status at discharge: independent ambulation Overall status at discharge: patient is progressing back to baseline Time Spent with Patient Time attestation: Total time managing care of this patient today ____ minutes. Time spent: Less than 30 minutes Discharge Plan Discharge Anticipated Discharge Date/Time: 05/29/24 12:00 Patient Disposition: Xfer Other Discharge Diagnosis: Recurrent Major Depression Opiate Use Disorder Alcohol Use Disorder Polysubstance Use Disorder Grief Reaction Referrals: Physician,Unknown J [Primary Care Provider] - 1 Week Discharge Medications: New multivitamin [Daily-See] Tablet 1 tab PO DAILY Qty: 0 0RF trazodone 50 mg Tablet 50 mg PO BEDTIME MRX1 PRN (Reason: Insomnia) Qty: 0 0RF polyethylene glycol 3350 17 gram Powder In Packet 17 g PO DAILY Qty: 0 0RF nicotine (polacrilex) 2 mg Gum 4 mg buccal Q2H PRN (Reason: Nicotine Cravings) Qty: 0 0RF clonazepam 1 mg Tablet 1 mg PO TID PRN (Reason: Anxiety) Qty: 0 0RF melatonin 3 mg Tablet 6 mg PO BEDTIME PRN (Reason: Insomnia) Qty: 0 0RF lamotrigine 25 mg Tablet 50 mg PO BID Qty: 0 0RF dextroamphetamine-amphetamine 20 mg Tablet 20 mg PO 1400,1700 Qty: 0 0RF Rx Instructions: Partial Fill upon patient request. hydroxyzine HCl 25 mg Tablet 25 mg PO Q6H PRN (Reason: mild anxiety) Qty: 0 0RF thiamine mononitrate (vit B1) 100 mg Tablet 100 mg PO DAILY Qty: 0 0RF amoxicillin-pot clavulanate 500-125 mg Tablet 1 tab PO Q12H Qty: 6 0RF Continued lisdexamfetamine [Vyvanse] 60 mg capsule 60 mg PO DAILY Qty: 30 0RF Rx Instructions: Partial Fill upon patient request. acetaminophen 325 mg Tablet 650 mg PO Q6H PRN (Reason: Headache/Pain, Scale 1-10) Qty: 0 0RF escitalopram oxalate 20 mg Tablet 20 mg PO DAILY Qty: 7 0RF omeprazole 40 mg Capsule,Delayed Release(Dr/Ec) 40 mg PO BID@0630,1630 Qty: 14 0RF docusate sodium 100 mg Capsule 100 mg PO BID Qty: 14 0RF folic acid 1 mg Tablet 2 mg PO DAILY Qty: 14 0RF sucralfate 100 mg/mL suspension 10 ml PO BID quetiapine 200 mg tablet 200 mg PO BEDTIME cyanocobalamin (vitamin B-12) 1,000 mcg tablet 1,000 mcg PO DAILY propranolol 10 mg tablet 10 mg PO BID buprenorphine-naloxone [Suboxone] 8-2 mg film 1 film sublingual BID Discontinued trazodone 50 mg Tablet 50 mg PO BEDTIME MRX1 PRN (Reason: Insomnia) Qty: 7 0RF clonazepam 0.5 mg Tablet 0.5 mg PO TID PRN (Reason: Anxiety) Qty: 7 0RF polyethylene glycol 3350 17 gram Powder In Packet 17 g PO DAILY PRN (Reason: Constipation) Qty: 14 0RF nicotine (polacrilex) 2 mg Gum 2 mg buccal Q2H PRN (Reason: Nicotine Cravings) Qty: 20 0RF lamotrigine 25 mg Tablet 50 mg PO BID Qty: 28 0RF thiamine HCl (vitamin B1) 100 mg tablet 100 mg PO DAILY Discharge Orders: Discharge Order (Routine); Ordered 05/29/24 Ordered By: Jennifer Peck Diet: Advance to usual diet Activity on Discharge: As tolerated Stand Alone Forms: Patient Portal Discharge page Print Language: Unable To Collect Care Plan Goals: Abstinence from Substances Mood and Behavioral Stabilization Health Concerns: Abstinence from Substances Mood and Behavioral Stabilization Plan of Treatment: Continue Augmentin until 05/31/24 a.m. (six doses) Section 35 Assessment: Pt is unsure about treatment, but is considering it. His history is of great concern to our team as he has had several serious overdoses. He is focused on retrieving his car Discharge Date/Time: 05/29/24 10:28
== END 2024-05-29 10:28 | disposition other institution (70) | DRG 751 ==
PROVIDERS: Admitting Provider Psychiatry & Neurology Psychiatry; Visit Provider Clinical Nurse Specialist Psychiatric/Mental Health, Adult
DX: F33.2 Major depressive disorder, recurrent severe without psychotic features (principal); F10.20 Alcohol dependence, uncomplicated; F11.20 Opioid dependence, uncomplicated; F19.20 Other psychoactive substance dependence, uncomplicated; F43.21 Adjustment disorder with depressed mood; F17.210 Nicotine dependence, cigarettes, uncomplicated; Z91.51 Personal history of suicidal behavior; Z71.6 Tobacco abuse counseling; Z79.899 Other long term (current) drug therapy

== ENCOUNTER → 2024-05-23 18:20 | Outpatient (BNV) | payer OTHER, SELFPAY | PROVIDERS: Admitting Provider Psychiatry & Neurology Psychiatry; Visit Provider Clinical Nurse Specialist Psychiatric/Mental Health, Adult | DX: F33.2 Major depressive disorder, recurrent severe without psychotic features (principal); F11.90 Opioid use, unspecified, uncomplicated; F19.20 Other psychoactive substance dependence, uncomplicated; F10.20 Alcohol dependence, uncomplicated; F43.21 Adjustment disorder with depressed mood | CPT/HCPCS: 90792; 99231 ==

== ENCOUNTER 2024-09-22 22:44 | Inpatient (IN) | payer MEDICAID, SELFPAY ==
--- NOTE | ~2024-09-22 | US_ITS ---
CLINICAL HISTORY: RUQ, elevated LFTs US abdomen limited Comparison: None provided Findings: The visualized pancreas is normal. The aorta and inferior vena cava are normal caliber. The liver is increased in size and echotexture. There is no intrahepatic bile duct dilatation. The common duct is 3 mm in diameter. The gallbladder is normal. There is no sonographic Lima sign. The main portal vein is antegrade. The right kidney is 10.9 cm in length. No ascites. IMPRESSION: No acute process. Mild hepatic steatosis and mild hepatomegaly. This document has been electronically signed by: Wallace Marc MD on 09/23/2024 11:29:51
--- NOTE | ~2024-09-22 | XR_ITS ---
CLINICAL HISTORY: fever 1 view chest x-ray Comparison: CR - XR CHEST 1V - 05/01/24 00:06 EDT Findings: The lungs are clear. Heart size is normal. No acute fracture. IMPRESSION: 1. No acute findings. This document has been electronically signed by: Brad Doyle MD on 09/23/2024 00:24:37
--- NOTE | ~2024-09-22 | XR_ITS ---
Examination: 3 view x-ray bilateral feet TECHNIQUE: AP, oblique, lateral view bilateral feet INDICATION: Bilateral foot pain Prior: None FINDINGS: Left foot: There is hallux valgus deformity with degenerative cystic change in the medial and neck junction of the first metatarsal. There is nonspecific sclerotic fragment lateral to the IP joint of the great toe. Right foot: There is a nonspecific bony ossicle lateral to the IP joint of the great toe. There is a scalloped irregularity involving the lateral neck region of the fifth metatarsal. There is nonspecific. Juxta articular osteopenia involving the third and fourth metatarsal head neck junctions. XR/XR Foot Vishal 3V IMPRESSION: Left foot: There is hallux valgus deformity with degenerative cystic change in the medial first metatarsal head neck junction. Right foot: There is chronic erosion involving the lateral margin of the fifth metatarsal head neck junction that could be related to rheumatoid arthritis in remission, gout or other inflammatory arthropathy. There is questionable marginal osteopenia involving the third and fourth metatarsal heads that could be related to active inflammatory arthropathy. Electronically signed by: Nico Espinosa MD 09/24/2024 11:52 AM EDT
[2024-09-22 22:55] VITALS: BP 118/80; PULSE 110; O2SAT 95
[2024-09-22 23:04] VITALS: BP 96/59; PULSE 109; RESP 20; TEMP 38.6; O2SAT 97; BMI 27.5
--- NOTE | 2024-09-22 23:08 | PC.NURSE ---
unable to obtain access pt is a difficult stick. 4x attempt since arrival and unable to obtain labs. awaiting PA for u/s IV.
[2024-09-22 23:24] LABS: IDNOW Serial# 58CA691E; Strep A Nucleic Acid Negative (Negative)
[2024-09-22] MEDS: SODIUM CHLORIDE 2613 ML IV (23:33)
[2024-09-22 23:39] LABS: Hematocrit 32.1 % (42.0-52.0); Hemoglobin 11.7 g/dl (14.0-18.0); Imm Gran Abs Auto 0.07 X10*3/uL (0.00-0.03); Imm Gran Pct Auto 0.6 % (0.0-0.4); Lymphocytes Absolute Auto 1.0 X10*3/uL (1.2-4.9); MANUAL DIFF FLAG SCAN; Mean Corpuscular HGB Conc 36.4 g/dl (31.0-36.0); Mean Corpuscular Hemoglobin 28.4 pg (27.0-33.0); Mean Corpuscular Volume 77.9 fL (80.0-98.0); NRBC Abs Auto 0.000 X10*3/uL (0.0-0.012); NRBC Pct Auto 0.0 /100WBC (0.0-0.2); Platelet Count 287 X10*3/uL (160-400); Red Blood Count 4.12 X10*6/uL (4.60-5.80); SCAN SMEAR FLAG 1; White Blood Count 12.6 X10*3/uL (4.8-10.8)
[2024-09-22 23:41] VITALS: PULSE 109
[2024-09-22 23:51] LABS: Alanine Aminotransferase 44 U/L (0-40); Albumin Level 4.2 g/dL (3.5-5.0); Alkaline Phosphatase 169 U/L (39-117); Anion Gap 15 (12-20); Aspartate Amino Transferase 64 U/L (5-37); Blood Urea Nitrogen 14 mg/dL (9-16); Calcium 8.7 mg/dL (8.4-10.2); Carbon Dioxide 30 mmol/L (22-29); Chloride 86 mmol/L (96-108); Creatinine Clr Calc Pharmacy 66.3; Estimated Glomerular Filt Rate 54; Magnesium 2.2 mg/dL (1.6-2.6); Potassium 3.0 mmol/L (3.3-5.1); Sodium 128 mmol/L (135-145); Total Protein 7.8 g/dL (6.5-8.0)
[2024-09-22 23:51] LABS: Resp Syncy Virus RNA Qual PCR NEGATIVE (Negative); SARS COV2 PCR INHOUSE NEGATIVE (Negative)
[2024-09-23] VITALS (14 sets, daily range): BP systolic 89–123; BP diastolic 43–61; PULSE 77–99; RESP 14–20; TEMP 36.4–38.3; O2SAT 93–99; BMI 28.5; BMI 28.8
--- NOTE | 2024-09-23 00:04 | PC.NURSE ---
pt biba from [facility] found laying down, pt states he was sleeping waiting for ems to arrive. pt states he called 911 d/t SI. does every drug and drinks handle alcohol daily with intent of harm, states look at me I'm disgusting. pt reports has been sick for couple days, cough/sore throat, voice is raspy hard to understand, rash noted all over body; feels like sandpaper but pt states he shaves his body unsure if razor rash. reports chronic bilat foot pain. on arrival multiple attempts for access and unable to. Aylin SHI made aware of vitals/sepsis criteria and need for access. at 2320 18g U/S IV accessed to E by YURIDIA and labs obtained. pt was changed over by security and placed ligature risk clothes on pt. pt is axox3, uncertain of date but aware of month, follows commands appropriately. airway is patent, throat appears red without exudate, uvula normal. viral/strep swabs obtained. pt is on cardiac monitoring. ciwa 5 currently. 1:1 sitter at bedside. pt has ivf/tylenol infusing currently. received abx per apr. vss. pt is sleeping resp even and unlabored, awakens to name. since arrival pt has been calm/cooperative.
--- NOTE | 2024-09-23 00:18 | ED.GENADULT ---
HPI - General Adult General Chief complaint: General Medical Stated complaint: syncopal episode, foot and leg pain Time Seen by Provider: 09/22/24 23:01 Source: patient and EMS Limitations: other (Intoxication) History of Present Illness ED Provider: Galina Jimenez PA-C HPI narrative: 49-year-old male with a history of moderate alcohol use disorder with prior alcohol withdrawal with seizure activity, polysubstance abuse, depression who presents with SI. Patient states he called EMS due to suicidal ideation. Patient states that he? uses every drug, drinks handles of alcohol daily ?. Patient states his plan is to overdose. Associated cough, sore throat and generalized malaise for unclear duration of time. History limited as patient is currently intoxicated. Related Data Home Medications ?Medication ?Instructions ?Recorded ?Confirmed buprenorphine 8 mg-naloxone 2 mg 1 film sublingual BID 05/22/24 05/22/24 sublingual film (Suboxone) cyanocobalamin (vitamin B-12) 1,000 mcg PO DAILY 05/22/24 05/22/24 1,000 mcg tablet propranolol 10 mg tablet 10 mg PO BID 05/22/24 05/22/24 quetiapine 200 mg tablet 200 mg PO BEDTIME 05/22/24 05/22/24 sucralfate 100 mg/mL oral 10 ml PO BID 05/22/24 05/22/24 suspension Previous Rx's ?Medication ?Instructions ?Recorded lisdexamfetamine 60 mg capsule 60 mg PO DAILY #30 caps 05/15/24 (Vyvanse) acetaminophen 325 mg tablet 650 mg (2 x 325 mg) PO Q6H PRN 05/21/24 Headache/Pain, Scale 1-10 #0 tabs docusate sodium 100 mg capsule 100 mg PO BID #14 caps 05/21/24 escitalopram oxalate 20 mg tablet 20 mg PO DAILY #7 tabs 05/21/24 folic acid 1 mg tablet 2 mg (2 x 1 mg) PO DAILY #14 tabs 05/21/24 omeprazole 40 mg capsule,delayed 40 mg PO BID@0630,1630 #14 caps 05/21/24 release amoxicillin 500 mg-potassium 1 tab PO Q12H #6 tabs 05/28/24 clavulanate 125 mg tablet clonazepam 1 mg tablet 1 mg PO TID PRN Anxiety #0 tabs 05/28/24 dextroamphetamine-amphetamine 20 20 mg PO 1400,1700 #0 tabs 05/28/24 mg tablet hydroxyzine HCl 25 mg tablet 25 mg PO Q6H PRN mild anxiety #0 05/28/24 tabs lamotrigine 25 mg tablet 50 mg (2 x 25 mg) PO BID #0 tabs 05/28/24 melatonin 3 mg tablet 6 mg (2 x 3 mg) PO BEDTIME PRN 05/28/24 Insomnia #0 tabs multivitamin (Daily-See tablet) 1 tab PO DAILY #0 tabs 05/28/24 nicotine (polacrilex) 2 mg gum 4 mg buccal Q2H PRN Nicotine 05/28/24 Cravings #0 ea polyethylene glycol 3350 17 gram 17 g PO DAILY #0 ea 05/28/24 oral powder packet thiamine mononitrate (vit B1) 100 100 mg PO DAILY #0 tabs 05/28/24 mg tablet trazodone 50 mg tablet 50 mg PO BEDTIME MRX1 PRN Insomnia 05/28/24 #0 tabs Allergies Allergy/AdvReac Type Severity Reaction Status Date / Time No Known Allergies Allergy Verified 09/22/24 23:07 Review of Systems Review of Systems: Unable to fully obtain secondary to intoxication Yes all other systems are reviewed and are negative Constitutional: Constitutional: Denies fatigue and Denies fever(s) ENT: Reports sore throat Cardiovascular: Cardiovascular: Denies chest pain and Denies dyspnea Respiratory: Respiratory: Reports cough and Denies dyspnea Endocrine: Endocrine: Denies fatigue PMFSH Past Medical History Attestation statement: The following information was validated with the patient. Medical History (Updated 09/23/24 @ 03:32 by YURIDIA Foster) Grief reaction Dysphagia History of suicidal ideation Cocaine use disorder, moderate, dependence Opioid use disorder Mood disorder Social History Social History Household Members: None Housing: Homeless Do you presently have visiting nurse or other home services: No Alcohol intake: current Alcohol intake frequency: 3 or more drinks per day Alcohol type: hard liquor Comment: Sitter Patient Tobacco Use Status: Current everyday Tobacco user Tobacco use type: Cigarette Cigarette Packs Per Day: 2 Cigarettes Per Day: 40.0 Smoked in Last 30 Days: Yes e-Cigarette/Vaping Use: Never Used Second Hand Smoke Exposure: No Use of substances other than those prescribed or required for medical reasons: Yes Substance Use Type: Crack/Cocaine, Heroin, IV Drugs, Marijuana, Opiates and Other Substance Use Type Other:: fentanyl Advance Directives: No Advance Directives Information Provided: Yes Do you have a plan to hurt others: No Plan service: No Sexual orientation: Straight/Heterosexual Physical Exam ED Vital Signs: Vital Signs - 24 hr 09/22/24 23:04 09/23/24 00:04 09/23/24 00:26 Temperature 101.5 F H 100.7 F H Pulse Rate 109 H 99 Respiratory Rate 20 18 Blood Pressure 96/59 L 114/61 Pulse Oximetry 97 99 Oxygen Delivery Method Room Air Room Air 09/23/24 00:46 09/23/24 00:51 09/23/24 01:09 Temperature Pulse Rate 96 98 Respiratory Rate 14 15 Blood Pressure 108/58 L 89/43 L 113/59 L Pulse Oximetry 94 95 Oxygen Delivery Method Room Air Room Air 09/23/24 01:15 09/23/24 02:19 Temperature Pulse Rate 93 Respiratory Rate 16 Blood Pressure 118/52 L 104/45 L Pulse Oximetry 96 Oxygen Delivery Method Room Air BMI result Body Mass Index 27.5 Const Other: Intoxicated in appearance, appears older than stated age, patient is drowsy, yet physically agitated at times, Orientation/consciousness: oriented to person and oriented to place HENMT Other: Oropharynx is erythematous without exudate, uvula midline, no sublingual fluctuance, no swelling inferior to the jawline, raspy voice noted Resp Other: Lungs clear to auscultation Cardio Other: Normal peripheral perfusion Skin Other: Warm dry, some excoriations noted over anterior chest, there is a raised, erythematous, pinpoint rash some with scabbed over regions, appear to be folliculitis in some areas, and others perhaps prickly heat ( miliaria), found over anterior torso, and axilla Neuro Other: Not give accurate date General: oriented to person, oriented to place, no focal motor deficits and CN's II-XI intact bilaterally Psych Other: Cooperative, simply agitated at times, intoxicated Course Reevaluation(s) Reevaluation #1: 09/12/2024 on September 22, a sepsis focused exam was performed. The patient is febrile, tachycardic, here with viral related symptoms, in addition to being intoxicated and suicidal. We will be adding on blood cultures, lactic, starting empiric ceftriaxone, weight based IV fluid and giving Tylenol Time: 23:25 Medications Administered Generic Name Dose Route Start Last Admin Trade Name Freq PRN Reason Stop Dose Admin Potassium Chloride 10 meq in 100 mls @ 100 mls/hr 09/23/24 00:30 09/23/24 02:44 Potassium Chloride/H20 IV 09/23/24 04:29 100 mls/hr Q1H MARIANN Administration Discontinued Medications Generic Name Dose Route Start Last Admin Trade Name Freq PRN Reason Stop Dose Admin Ceftriaxone Sodium 2 gm 09/22/24 23:25 09/22/24 23:33 Ceftriaxone Sodium 2 Gm Vial IVPUSH 09/22/24 23:26 2 gm ONCE ONE Administration Diazepam 2.5 mg 09/23/24 00:17 09/23/24 00:26 Diazepam 10 Mg/2 Ml Cartridge IVPUSH 09/23/24 00:18 2.5 mg STAT STA Administration Sodium Chloride 2,613 mls @ 2,613 mls/hr 09/22/24 23:25 09/23/24 00:35 Ns 30 ml/kg infuse over 1 hr (2613 ml) 09/23/24 00:24 Infused IV Infusion .Q1H STA Acetaminophen 1,000 mg in 100 mls @ 400 mls/hr 09/22/24 23:25 09/23/24 00:03 Ofirmev IV 09/22/24 23:39 Infused ONCE ONE Infusion Sodium Chloride 500 mls @ 500 mls/hr 09/23/24 00:20 09/23/24 00:50 Ns IV 09/23/24 01:19 500 mls/hr .Q1H ONE Administration Procedures Procedure Narrative Procedure Narrative: Ultrasound-guided IV 18 gauge 1-3/4 inch IV placed in left upper extremity, adequate blood return, flushes well secured with Tegaderm Medical Decision Making Medical Decision Making MDM Narrative: 49-year-old male with a history of moderate alcohol use disorder with prior alcohol withdrawal with seizure activity, polysubstance abuse, depression who presents with SI. Patient states he called EMS due to suicidal ideation. Patient states that he? uses every drug, drinks handles of alcohol daily ?. Patient states his plan is to overdose. Associated cough, sore throat and generalized malaise for unclear duration of time. History limited as patient is currently intoxicated. Problem: Polysubstance abuse, alcohol use disorder, psychiatric illness History: Per patient I have considered the following differential diagnoses: Sepsis, SI, HI, decompensated psychiatric illness, drug/alcohol intoxication , alcohol withdrawal Plan: Patient's original presentation is for suicidal ideation. However, he is quite intoxicated in appearance and agitated, also incidentally found to be febrile. Concerned for sepsis. In addition to screening labs we will be adding blood cultures, lactic. Starting weight based IV fluid therapy. Giving IV Valium for his agitation. Patient has a propensity to withdraw from alcohol, placing CIWA scale, and we will initiate the phenobarb protocol. If the patient can be medically cleared, he will require care team consult. I have independently reviewed the following tests: Labs: Leukocytosis with left shift, not anemic, hyponatremic, hypokalemic, no additional electrolyte abnormalities, creatinine kinase 645, KAY of 1.39, viral panel negative, strep screen negative, U tox positive for opiates, buprenorphine, fentanyl, cocaine, ethanol less than 10 Chest x-ray:Findings: The lungs are clear. Heart size is normal. No acute fracture. IMPRESSION: 1. No acute findings. Lab Data 09/22/24 23:22 09/22/24 23:23 Labs: Lab Results 09/22/24 09/22/24 09/22/24 Range/Units 23:09 23:22 23:23 WBC 12.6 H (4.8-10.8) X10*3/uL RBC 4.12 L (4.60-5.80) X10*6/uL Hgb 11.7 L (14.0-18.0) g/dl Hct 32.1 L (42.0-52.0) % MCV 77.9 L (80.0-98.0) fL MCH 28.4 (27.0-33.0) pg MCHC 36.4 H (31.0-36.0) g/dl RDW 13.6 (11.0-16.0) % Plt Count 287 (160-400) X10*3/uL MPV 9.9 (9.4-12.4) fL Immature Gran % (Auto) 0.6 H (0.0-0.4) % Neut % (Auto) 77.9 H (45-73) % Lymph % (Auto) 8.2 L (20-40) % [place] % (Auto) 13.0 H (2-11) % Eos % (Auto) 0.1 (0-4) % Baso % (Auto) 0.2 (0-2) % Lymph # (Auto) 1.0 L (1.2-4.9) X10*3/uL [place] # (Auto) 1.6 H (0.1-1.2) X10*3/uL Eos # (Auto) 0.0 (0.0-0.4) X10*3/uL Baso # (Auto) 0.0 (0.0-0.2) X10*3/uL Abs Immat Gran (auto) 0.07 H (0.00-0.03) X10*3/uL Absolute Neuts (auto) 9.9 H (2.0-8.3) x10*3/uL Absolute Nucleated RBC 0.000 (0.0-0.012) X10*3/uL Nucleated RBC % (auto) 0.0 (0.0-0.2) /100WBC Smear Tech's Comments VERIFIED Hold Purple Top SEE NOTE Sodium 128 L (135-145) mmol/L Potassium 3.0 L (3.3-5.1) mmol/L Chloride 86 L D (96-108) mmol/L Carbon Dioxide 30 H (22-29) mmol/L Anion Gap 15 (12-20) BUN 14 (9-16) mg/dL Creatinine 1.39 (0.5-1.4) mg/dL Estim Creat Clear Calc 66.3 Estimated GFR 54 Random Glucose 153 H (60-115) mg/dL Lactic Acid 1.8 (0.5-2.0) mmol/L Calcium 8.7 (8.4-10.2) mg/dL Magnesium 2.2 (1.6-2.6) mg/dL Total Bilirubin 0.6 (0.0-1.0) mg/dL AST 64 H (5-37) U/L ALT 44 H (0-40) U/L Alkaline Phosphatase 169 H (39-117) U/L Total Creatine Kinase 645 H (38-174) U/L Total Protein 7.8 (6.5-8.0) g/dL Albumin 4.2 (3.5-5.0) g/dL Urine Color Urine Appearance Urine pH (5.0-9.0) Ur Specific [place] (1.005-1.025) Urine Protein (Neg-Trace) mg/dL Urine Glucose (UA) (Negative) mg/dL Urine Ketones (Negative) mg/dL Urine Blood (Negative) Urine Nitrite (Negative) Ur Leukocyte Esterase (Negative) Urine RBC (0-2) /HPF Urine WBC (0-5) /HPF Ur Squamous Epith Cells (0-2) /HPF Urine Bacteria (None Seen) Hyaline Casts (0-2) /LPF Urine Opiates Screen (Not Detect) Ur Buprenorphine Scrn (Not Detect) ng/mL Ur Oxycodone Screen (Not Detect) ng/mL Urine Methadone Screen (Not Detect) ng/mL Urine Fentanyl Screen (Not Detect) Ur Barbiturates Screen (Not Detect) Ur Phencyclidine Scrn (Not Detect) Ur Amphetamines Screen (Not Detect) U Benzodiazepines Scrn (Not Detect) Urine Cocaine Screen (Not Detect) U Marijuana (THC) Screen (Not Detect) Ethyl Alcohol < 10 mg/dL Influenza Type A (PCR) NEGATIVE (Negative) Influenza Type B (PCR) NEGATIVE (Negative) RSV RNA Qual (PCR) NEGATIVE (Negative) SARS-CoV-2 RNA (RT-PCR) NEGATIVE (Negative) S. pyogenes GrpA LING Negative (Negative) 09/23/24 Range/Units 01:15 WBC (4.8-10.8) X10*3/uL RBC (4.60-5.80) X10*6/uL Hgb (14.0-18.0) g/dl Hct (42.0-52.0) % MCV (80.0-98.0) fL MCH (27.0-33.0) pg MCHC (31.0-36.0) g/dl RDW (11.0-16.0) % Plt Count (160-400) X10*3/uL MPV (9.4-12.4) fL Immature Gran % (Auto) (0.0-0.4) % Neut % (Auto) (45-73) % Lymph % (Auto) (20-40) % [place] % (Auto) (2-11) % Eos % (Auto) (0-4) % Baso % (Auto) (0-2) % Lymph # (Auto) (1.2-4.9) X10*3/uL [place] # (Auto) (0.1-1.2) X10*3/uL Eos # (Auto) (0.0-0.4) X10*3/uL Baso # (Auto) (0.0-0.2) X10*3/uL Abs Immat Gran (auto) (0.00-0.03) X10*3/uL Absolute Neuts (auto) (2.0-8.3) x10*3/uL Absolute Nucleated RBC (0.0-0.012) X10*3/uL Nucleated RBC % (auto) (0.0-0.2) /100WBC Smear Tech's Comments Hold Purple Top Sodium (135-145) mmol/L Potassium (3.3-5.1) mmol/L Chloride (96-108) mmol/L Carbon Dioxide (22-29) mmol/L Anion Gap (12-20) BUN (9-16) mg/dL Creatinine (0.5-1.4) mg/dL Estim Creat Clear Calc Estimated GFR Random Glucose (60-115) mg/dL Lactic Acid (0.5-2.0) mmol/L Calcium (8.4-10.2) mg/dL Magnesium (1.6-2.6) mg/dL Total Bilirubin (0.0-1.0) mg/dL AST (5-37) U/L ALT (0-40) U/L Alkaline Phosphatase (39-117) U/L Total Creatine Kinase (38-174) U/L Total Protein (6.5-8.0) g/dL Albumin (3.5-5.0) g/dL Urine Color Yellow Urine Appearance Clear Urine pH 6.0 (5.0-9.0) Ur Specific [place] 1.010 (1.005-1.025) Urine Protein 30 (1+) H (Neg-Trace) mg/dL Urine Glucose (UA) Negative (Negative) mg/dL Urine Ketones Negative (Negative) mg/dL Urine Blood Small (1+) H (Negative) Urine Nitrite Negative (Negative) Ur Leukocyte Esterase Negative (Negative) Urine RBC 0-2 (0-2) /HPF Urine WBC 0-5 (0-5) /HPF Ur Squamous Epith Cells 3-5 (0-2) /HPF Urine Bacteria None Seen (None Seen) Hyaline Casts 3-5 (0-2) /LPF Urine Opiates Screen POSITIVE H (Not Detect) Ur Buprenorphine Scrn Positive H (Not Detect) ng/mL Ur Oxycodone Screen Not Detected (Not Detect) ng/mL Urine Methadone Screen Not Detected (Not Detect) ng/mL Urine Fentanyl Screen POSITIVE H (Not Detect) Ur Barbiturates Screen Not Detected (Not Detect) Ur Phencyclidine Scrn Not Detected (Not Detect) Ur Amphetamines Screen Not Detected (Not Detect) U Benzodiazepines Scrn Not Detected (Not Detect) Urine Cocaine Screen POSITIVE H (Not Detect) U Marijuana (THC) Screen Not Detected (Not Detect) Ethyl Alcohol mg/dL Influenza Type A (PCR) (Negative) Influenza Type B (PCR) (Negative) RSV RNA Qual (PCR) (Negative) SARS-CoV-2 RNA (RT-PCR) (Negative) S. pyogenes GrpA LING (Negative) Critical Care Time Critical Care Time Critical Care Time: Yes Total Critical Care Time: 45 Attestation: I Galina Jimenez PA-C have personally performed 45 minutes of critical care time not including lines and procedures; alcohol withdrawal, sepsis, hypokalemia, hyponatremia, suicidal ideation Discharge Plan Discharge Clinical Impression: Alcohol use disorder, moderate, dependence, Acute hypokalemia, Fever, Acute hyponatremia, Acute kidney injury, Suicidal ideation Patient Disposition: Admitted As Inpatient
[2024-09-23] MEDS: diazePAM 10 MG/2 ML CARTRIDGE 2.5 MG IVPUSH (00:26)
--- NOTE | 2024-09-23 00:32 | PC.NURSE ---
Addendum entered by Tata Roy RN 09/23/24 00:34: the 500ml NS bolus ordered to have running with potassium to prevent pain at IV site. this is not part of sepsis protocol fluids. Original Note: pt woke up thrashing in bed unable to state what he needs. ciwa scored at 13 and Aylin SHI made aware. IVP given per apr and awaiting verification of Phenobarb to start protocol.
[2024-09-23] MEDS: Potassium Chloride/H20 10 MEQ/100 ML PIGGYBACK 100 MEQ IV ×4 (00:50→03:50)
--- NOTE | 2024-09-23 01:17 | PC.NURSE ---
bp has improved at this time, Aylin SHI aware. pt provided urine sample, sent to lab.
[2024-09-23 01:23] LABS: Appearance Urine Clear; Glucose Urine UA Negative (Negative); PH 6.0 (5.0-9.0); Specific Gravity - Urine 1.010 (1.005-1.025); UMIC TRIGGER UACC YES
[2024-09-23 01:37] LABS: Cannabinoid Screen Urine Not Detected (Not Detect)
--- NOTE | 2024-09-23 01:42 | PC.NURSE ---
per PA to hold off on phenobarb as pt is snoring and upon awakening pt quickly back asleep. ciwa currently 1.
--- NOTE | 2024-09-23 03:06 | PM.IMHP ---
History of Present Illness Date of Service: 09/23/24 Attending physician on admission: Servando Cote Chief Complaint: SI Patient is a 49-year-old male with a past medical history significant for alcohol use disorder, severe alcohol withdrawal with seizures, polysubstance abuse/IVDA, and major depressive disorder, who presented to the ED due to SI with associated viral symptoms including cough, sore throat and raspy voice. Patient noted a rash all over his body chronic bilateral foot pain. He was found outside lying on the sidewalk after calling EMS due to SI, plan to overdose. He reported that he does ?every drug ?and drinks a handle of alcohol daily with intent of harm. He reported that he has been sick for the past few days. The patient received IV Valium in the ED and has been somnolent, unable to provide history at this time. Review of Systems Review of Systems: Yes Unobtainable due to mental status [facility] Medical History (Updated 09/23/24 @ 03:32 by YURIDIA Foster) Grief reaction Dysphagia History of suicidal ideation Cocaine use disorder, moderate, dependence Opioid use disorder Mood disorder Social History Household Members: None Housing: Homeless Do you presently have visiting nurse or other home services: No Alcohol intake: current Alcohol intake frequency: 3 or more drinks per day Alcohol type: hard liquor Comment: Sitter Patient Tobacco Use Status: Current everyday Tobacco user Tobacco use type: Cigarette Cigarette Packs Per Day: 2 Cigarettes Per Day: 40.0 Smoked in Last 30 Days: Yes e-Cigarette/Vaping Use: Never Used Second Hand Smoke Exposure: No Use of substances other than those prescribed or required for medical reasons: Yes Substance Use Type: Crack/Cocaine, Heroin, IV Drugs, Marijuana, Opiates and Other Substance Use Type Other:: fentanyl Advance Directives: No Advance Directives Information Provided: Yes Do you have a plan to hurt others: No Plan service: No Sexual orientation: Straight/Heterosexual Meds Allergies Allergy/AdvReac Type Severity Reaction Status Date / Time No Known Allergies Allergy Verified 09/22/24 23:07 Active Medications: Current Medications Acetaminophen (Acetaminophen 325 Mg Tablet) 650 mg PO Q6H PRN PRN Reason: Pain, Mild 1-3,fever,headache Calcium Carbonate (Calcium Carbonate 750 Mg Tab.Chew) 750 mg PO Q4H PRN PRN Reason: Heartburn Heparin Sodium (Porcine) (Heparin Sodium,Porcine 5,000 Unit/Ml Vial) 5,000 unit SUBCUT Q8H [facility] Potassium Chloride (Potassium Chloride/H20) 10 meq in 100 mls @ 100 mls/hr IV Q1H [facility] Stop: 09/23/24 04:29 Last Admin: 09/23/24 02:44 Dose: 100 mls/hr Magnesium Hydroxide (Milk Of Magnesia 30 Ml Oral.Susp) 30 ml PO DAILY PRN PRN Reason: Constipation Melatonin (Melatonin 3 Mg Tablet) 6 mg PO BEDTIME PRN PRN Reason: Insomnia Ondansetron HCl (Ondansetron Hcl 4 Mg/2 Ml Vial) 4 mg IVPUSH Q8H PRN PRN Reason: Nausea and Vomiting Pharmacy Consult (Consult Rx Etoh Phenob Im/Po) 1 each MISCELLANE ONCE PRN; Protocol PRN Reason: Consult order Phenobarbital (Phenobarbital 15 Mg Tablet) 45 mg PO BID [facility] Stop: 09/24/24 21:01 Phenobarbital (Phenobarbital 30 Mg Tablet) 30 mg PO BID [facility] Stop: 09/26/24 21:01 Phenobarbital (Phenobarbital 15 Mg Tablet) 15 mg PO DAILY [facility] Stop: 09/28/24 09:01 Phenobarbital Sodium (Phenobarbital Sodium 130 Mg/Ml Vial Im Q3hx2) 260 mg IM Q3H [facility] Stop: 09/23/24 07:01 Sodium Chloride (0.9 % Sodium Chloride Flush 3 Ml Syringe) 3 ml IVFLUSH QSHIFT [facility] Home Medications ?Medication ?Instructions ?Recorded ?Confirmed ?Last Taken ?Type buprenorphine 8 mg-naloxone 2 mg 1 film sublingual BID 05/22/24 05/22/24 Unknown History sublingual film (Suboxone) cyanocobalamin (vitamin B-12) 1,000 mcg PO DAILY 05/22/24 05/22/24 Unknown History 1,000 mcg tablet propranolol 10 mg tablet 10 mg PO BID 05/22/24 05/22/24 Unknown History quetiapine 200 mg tablet 200 mg PO BEDTIME 05/22/24 05/22/24 Unknown History sucralfate 100 mg/mL oral 10 ml PO BID 05/22/24 05/22/24 Unknown History suspension Physical Exam Vital Signs and Narrative: Vital Signs: Last Vital Signs Temp 100.7 F H 09/23/24 00:26 Pulse 93 09/23/24 02:19 Resp 16 09/23/24 02:19 BP 104/45 L 09/23/24 02:19 Pulse Ox 96 09/23/24 02:19 O2 Del Method Room Air 09/23/24 02:19 BMI result Body Mass Index 27.5 General: Solnoment, alert to verbal stimuli, no acute distress Resp: diminished throughout, no wheezing, limited exam due to somnolence CVS: S1, S2, tachy, normal rhythm GI: +BS, NT, no distention Skin: Warm, dry. papular rash on chest with evidence of excoriations. no evidence of cellulitis or significant wounds. Neuro: PERRL, moving all extremities Extremities: No LE edema Psych: somnolent Results Labs 09/22/24 23:22 09/22/24 23:23 Labs: Laboratory Results - last 24 hr 09/22/24 09/22/24 09/22/24 23:09 23:22 23:23 MCV 77.9 L MCH 28.4 MCHC 36.4 H RDW 13.6 Plt Count 287 MPV 9.9 Immature Gran % (Auto) 0.6 H Neut % (Auto) 77.9 H Lymph % (Auto) 8.2 L [place] % (Auto) 13.0 H Eos % (Auto) 0.1 Baso % (Auto) 0.2 Lymph # (Auto) 1.0 L [place] # (Auto) 1.6 H Eos # (Auto) 0.0 Baso # (Auto) 0.0 Abs Immat Gran (auto) 0.07 H Absolute Neuts (auto) 9.9 H Absolute Nucleated RBC 0.000 Nucleated RBC % (auto) 0.0 Smear Tech's Comments VERIFIED Hold Purple Top SEE NOTE Anion Gap 15 Estim Creat Clear Calc 66.3 Estimated GFR 54 Random Glucose 153 H Lactic Acid 1.8 Calcium 8.7 Magnesium 2.2 Total Bilirubin 0.6 AST 64 H ALT 44 H Alkaline Phosphatase 169 H Total Creatine Kinase 645 H Total Protein 7.8 Albumin 4.2 Urine Color Urine Appearance Urine pH Ur Specific [place] Urine Protein Urine Glucose (UA) Urine Ketones Urine Blood Urine Nitrite Ur Leukocyte Esterase Urine RBC Urine WBC Ur Squamous Epith Cells Urine Bacteria Hyaline Casts Urine Opiates Screen Ur Buprenorphine Scrn Ur Oxycodone Screen Urine Methadone Screen Urine Fentanyl Screen Ur Barbiturates Screen Ur Phencyclidine Scrn Ur Amphetamines Screen U Benzodiazepines Scrn Urine Cocaine Screen U Marijuana (THC) Screen Ethyl Alcohol < 10 Influenza Type A (PCR) NEGATIVE Influenza Type B (PCR) NEGATIVE RSV RNA Qual (PCR) NEGATIVE SARS-CoV-2 RNA (RT-PCR) NEGATIVE S. pyogenes GrpA LING Negative 09/23/24 01:15 MCV MCH MCHC RDW Plt Count MPV Immature Gran % (Auto) Neut % (Auto) Lymph % (Auto) [place] % (Auto) Eos % (Auto) Baso % (Auto) Lymph # (Auto) [place] # (Auto) Eos # (Auto) Baso # (Auto) Abs Immat Gran (auto) Absolute Neuts (auto) Absolute Nucleated RBC Nucleated RBC % (auto) Smear Tech's Comments Hold Purple Top Anion Gap Estim Creat Clear Calc Estimated GFR Random Glucose Lactic Acid Calcium Magnesium Total Bilirubin AST ALT Alkaline Phosphatase Total Creatine Kinase Total Protein Albumin Urine Color Yellow Urine Appearance Clear Urine pH 6.0 Ur Specific [place] 1.010 Urine Protein 30 (1+) H Urine Glucose (UA) Negative Urine Ketones Negative Urine Blood Small (1+) H Urine Nitrite Negative Ur Leukocyte Esterase Negative Urine RBC 0-2 Urine WBC 0-5 Ur Squamous Epith Cells 3-5 Urine Bacteria None Seen Hyaline Casts 3-5 Urine Opiates Screen POSITIVE H Ur Buprenorphine Scrn Positive H Ur Oxycodone Screen Not Detected Urine Methadone Screen Not Detected Urine Fentanyl Screen POSITIVE H Ur Barbiturates Screen Not Detected Ur Phencyclidine Scrn Not Detected Ur Amphetamines Screen Not Detected U Benzodiazepines Scrn Not Detected Urine Cocaine Screen POSITIVE H U Marijuana (THC) Screen Not Detected Ethyl Alcohol Influenza Type A (PCR) Influenza Type B (PCR) RSV RNA Qual (PCR) SARS-CoV-2 RNA (RT-PCR) S. pyogenes GrpA LING Assessment and Plan (1) Sepsis: Status: Acute (2) Fever of unknown origin: Status: Acute (3) Acute hypokalemia: Status: Acute (4) Acute hyponatremia: Status: Acute (5) Acute kidney injury: Status: Acute (6) Alcohol use disorder, moderate, dependence: Status: Acute (7) Suicidal ideation: Status: Acute (8) Toxic encephalopathy: Status: Acute (9) Polysubstance (including opioids) dependence with physiological dependence: Status: Acute (10) Transaminitis: Status: Acute Plan Patient is a 49-year-old male with a past medical history significant for alcohol use disorder, severe alcohol withdrawal with seizures, polysubstance abuse/IVDA, and major depressive disorder, who presented to the ED due to SI with associated viral symptoms including cough, sore throat and raspy voice. severe sepsis with fever of unknown origin, ?viral illness - WBC 12.6, febrile and tachycardic, lactic acid normal, blood cultures x2 pending. elevated LFTs and KAY. - CXR negative - UA negative - COVID/flu/RSV negative - strep negative - started on ceftrixone in ED, continue - received 30 cc per kg IV fluid bolus in ED, blood pressure soft, monitor - ID consult - monitor CBC and CMP Toxic encephalopathy -- secondary to drug use/etoh - polysubstance abuse and etoh abuse - etoh level undectable - UTox positive for opiates, buprenorphine, fentanyl, cocaine - IV thiamine - addiction med consult - phenobarb protocol - monitor CIWA - seizure precautions KAY - cr 1.39 - CPK 645 - IVF as above - monitor kidney function acute hyponatermia and hypokalemia - sodium 128, chloride 86, bicarb 30, potassium 3.0 - 40 mEq IV potassium - IV fluids as above - monitor BMP Elevated LFTs - patient has alcohol use disorder however LFTs more elevated than previous, consider relation to severe sepsis - right upper quadrant ultrasound - monitor LFTs Mood disorder/SI - continue home meds - will need care team eval once mentating better Med rec pending Full code based off of previous admissions VTE prophylaxis: Heparin Patient with severe sepsis and fever of unknown origin, likely viral illness, complicated by KAY, electrolyte abnormalities and toxic encephalopathy, requiring admission for at least 2 midnights stay for IV antibiotics, further evaluation and monitoring. Quality Stroke Does the patient have a stroke diagnosis?: No VTE Prior VTE?: No VTE Risk Level:: Medical - moderate - high VTE Device Contraindication: Treatment Not Indicated VTE Drug Contraindication: N/A - Med Ordered
--- NOTE | 2024-09-23 03:38 | PC.NURSE ---
Addendum entered by Tata Roy RN 09/23/24 03:38: pharmacy notified to retime order to start now. Original Note: per Fabiola SHI, to start phenobarb now, pt remains sleeping awakens to name but quickly falls asleep. vitals are within criteria.
[2024-09-23] MEDS: PHENobarbitaL sodium 130 MG/ML IM ONCE 350 MG IM (04:00)
[2024-09-23] MEDS: Thiamine HCL 100 MG in 0.9 % Sodium Chloride 100 ML 202 MG IV (05:11)
[2024-09-23 05:19] LABS: Hematocrit 29.9 % (42.0-52.0); Hemoglobin 10.7 g/dl (14.0-18.0); Imm Gran Abs Auto 0.05 X10*3/uL (0.00-0.03); Imm Gran Pct Auto 0.5 % (0.0-0.4); Lymphocytes Absolute Auto 1.9 X10*3/uL (1.2-4.9); MANUAL DIFF FLAG NO; Mean Corpuscular HGB Conc 35.8 g/dl (31.0-36.0); Mean Corpuscular Hemoglobin 28.2 pg (27.0-33.0); Mean Corpuscular Volume 78.7 fL (80.0-98.0); NRBC Abs Auto 0.000 X10*3/uL (0.0-0.012); NRBC Pct Auto 0.0 /100WBC (0.0-0.2); Platelet Count 266 X10*3/uL (160-400); Red Blood Count 3.80 X10*6/uL (4.60-5.80); White Blood Count 9.8 X10*3/uL (4.8-10.8)
[2024-09-23 05:34] LABS: Alanine Aminotransferase 36 U/L (0-40); Albumin Level 3.5 g/dL (3.5-5.0); Alkaline Phosphatase 143 U/L (39-117); Anion Gap 13 (12-20); Aspartate Amino Transferase 51 U/L (5-37); Blood Urea Nitrogen 11 mg/dL (9-16); Calcium 7.6 mg/dL (8.4-10.2); Carbon Dioxide 27 mmol/L (22-29); Chloride 96 mmol/L (96-108); Creatinine Clr Calc Pharmacy 121.3; Estimated Glomerular Filt Rate > 60; Potassium 3.3 mmol/L (3.3-5.1); Sodium 133 mmol/L (135-145); Total Protein 6.6 g/dL (6.5-8.0)
[2024-09-23] MEDS: 0.9 % Sodium Chloride Flush 3 ML SYRINGE IVFLUSH (07:53)
[2024-09-23] MEDS: PHENobarbitaL sodium 130 MG/ML VIAL IM Q3Hx2 260 MG IM ×2 (07:53→10:53)
--- NOTE | 2024-09-23 08:06 | PC.NURSE ---
patient sleeping with even and unlabored respirations. wakes to verbal stimuli and falls back to sleep. medicated per the MAR, patient observer remains at bedside. ultrasound previously at bedside.
[2024-09-23 11:26] LABS: Chlamydia pneumoniae PCR Not Detected (Not Detect.); Coronavirus 229E PCR Not Detected (Not Detect.); Coronavirus HKU1 PCR Not Detected (Not Detect.); Coronavirus NL63 PCR Not Detected (Not Detect.); Coronavirus OC43 PCR Not Detected (Not Detect.); RSV PCR Not Detected (Not Detect.); Rhino/Enterovirus PCR Not Detected (Not Detect.)
--- NOTE | 2024-09-23 11:48 | PHA.MEDREC ---
Addendum entered by Catarino Barroso PharmD 09/24/24 08:56: spoke to [facility], they state he isn't a patient there anymore. Will let provider know the medications that haven't otherwise been filled for months. Original Note: Pharmacy Consult ? Medication Reconciliation Pharmacy has completed the medication reconciliation, utilized claims - will have AM team follow up with [facility] to get full list on 09/24.
[2024-09-23 12:38] LABS: SARS-CoV-2 PCR Not Detected (Not Detect.)
[2024-09-23 12:39] LABS: Influenza A H1 PCR Not Detected (Not Detect.); Influenza A H1-2009 PCR Not Detected (Not Detect.); Influenza A H3 PCR Not Detected (Not Detect.)
--- NOTE | 2024-09-23 15:13 | MHC.RECOVRN ---
Attempted to meet with Abiodun doan Pt with 1:1 sitter in his room due to reports of SI w/plan. Pt snoring loudly and not opening his eyes when his name is called. Pt does not appear to be in withdrawals at this time and has not reported withdrawals as of yet. Will continue to f/u with pt for any recovery needs. Pt will need to be seen by the CARE team as well to determine LOC once he is medically cleared.
[2024-09-24] VITALS (7 sets, daily range): BP systolic 97–145; BP diastolic 55–72; PULSE 69–81; RESP 16–20; TEMP 36.6–37.2; O2SAT 94–96
[2024-09-24] MEDS: 0.9 % Sodium Chloride Flush 3 ML SYRINGE IVFLUSH ×3 (01:23→17:19)
--- NOTE | 2024-09-24 10:07 | HO.ADDICTCON ---
History of Present Illness Date of Service: 09/24/2024 Chief Complaint: sepsis, SI, etoh withdrawal Reason for Consult: JAE Sources of Information: patient interviewed and chart reviewed HPI Narrative: most information obtained via chart review as patient was minimally participatory in eval Patient is a 49 year old male with history of substance use and withdrawal and MDD. Known to t/w via previous admissions. Presented to [facility] reporting cough, malaise and SI. In ED found to have sepsis, KAY,hyponatremia and hyporkalemia, and medically admitted. In ED treatment for alcohol withdrawal also inititated based on patient report on ongoing alcohol use, and history of alcohol withdrawal seizures. Patient seen in room 454. He is laying in bed, eyes closed, but answering questions with prompting. He reports not feeling well, but does not elaborate. He was restarted on Buprenorphine 8mg BID. He reports going to [facility] for JAE treatment. Unknown when he was last seen there. He does not appear diaphoretic or restless, and per documentation appears to be be sleeping since his arrival here. Past Psychiatric History: Inpt: several past psychiatric admission. Last one was back in 2023 at [facility]. OP: Chelsy Saleh- OP psychotherapist but has not seen patient in person for about one year, nor has had phone contact in several months. Psychotropic medications prescribed by Dr. Doyle Bermudez through [facility] for dual dx services. Both are terminated with pt he reports Hx of suicide attempts: several OD attempts, last one was in Oct 2023. 15 attempts pt reports Past medication trials: lexapro, adderall, propanolol- he has overdosed on these by history along with gabapentin Medical Evaluation Reviewed: Yes Review of Systems Constitutional: Reports as per HPI Diagnostics Vital Signs (24Hr): Vital Signs - 24 hr 09/23/24 12:00 09/23/24 16:00 09/23/24 17:18 Temperature 98.7 F 100.8 F H 101.0 F H Pulse Rate 84 80 Respiratory Rate 18 18 Blood Pressure 95/44 L 120/58 L Pulse Oximetry 93 95 Oxygen Delivery Method Room Air Room Air 09/23/24 20:00 09/24/24 00:00 09/24/24 04:00 Temperature 100.0 F 98.5 F 99.0 F Pulse Rate 77 81 75 Respiratory Rate 17 18 16 Blood Pressure 122/60 134/60 117/56 L Pulse Oximetry 95 94 96 Oxygen Delivery Method Room Air Room Air Room Air 09/24/24 07:42 Temperature 98.4 F Pulse Rate 71 Respiratory Rate 18 Blood Pressure 127/70 Pulse Oximetry 94 Oxygen Delivery Method Room Air BMI result Body Mass Index 28.8 Labs 09/24/24 10:49 09/24/24 10:49 Labs: Laboratory Results - last 48 hr 09/22/24 09/22/24 09/22/24 23:09 23:22 23:23 WBC 12.6 H RBC 4.12 L Hgb 11.7 L Hct 32.1 L MCV 77.9 L MCH 28.4 MCHC 36.4 H RDW 13.6 Plt Count 287 MPV 9.9 Immature Gran % (Auto) 0.6 H Neut % (Auto) 77.9 H Lymph % (Auto) 8.2 L [place] % (Auto) 13.0 H Eos % (Auto) 0.1 Baso % (Auto) 0.2 Lymph # (Auto) 1.0 L [place] # (Auto) 1.6 H Eos # (Auto) 0.0 Baso # (Auto) 0.0 Abs Immat Gran (auto) 0.07 H Absolute Neuts (auto) 9.9 H Absolute Nucleated RBC 0.000 Nucleated RBC % (auto) 0.0 Smear Tech's Comments VERIFIED Hold Purple Top SEE NOTE Sodium 128 L Potassium 3.0 L Chloride 86 L D Carbon Dioxide 30 H Anion Gap 15 BUN 14 Creatinine 1.39 Estim Creat Clear Calc 66.3 Estimated GFR 54 Random Glucose 153 H Lactic Acid 1.8 Calcium 8.7 Magnesium 2.2 Total Bilirubin 0.6 AST 64 H ALT 44 H Alkaline Phosphatase 169 H Total Creatine Kinase 645 H Total Protein 7.8 Albumin 4.2 Urine Color Urine Appearance Urine pH Ur Specific [place] Urine Protein Urine Glucose (UA) Urine Ketones Urine Blood Urine Nitrite Ur Leukocyte Esterase Urine RBC Urine WBC Ur Squamous Epith Cells Urine Bacteria Hyaline Casts Urine Opiates Screen Ur Buprenorphine Scrn Ur Oxycodone Screen Urine Methadone Screen Urine Fentanyl Screen Ur Barbiturates Screen Ur Phencyclidine Scrn Ur Amphetamines Screen U Benzodiazepines Scrn Urine Cocaine Screen U Marijuana (THC) Screen Ethyl Alcohol < 10 Respiratory Panel [place] Adenovirus (Rapid PCR) B.pert (TEM-PCR) B.parapertussis DNA PCR C. pneumoniae DNA (PCR) Coronavirus OC43 (PCR) Coronavirus HKU1 (PCR) Coronavirus 229E (PCR) Coronavirus NL63 (PCR) Human Metapneumovir PCR Influenza A (RT-PCR) Influenza A (H1) PCR Influ A (H1/09) PCR Influenza A (H3) PCR Influenza Type A (PCR) NEGATIVE Influenza B (RT-PCR) Influenza Type B (PCR) NEGATIVE M. pneumoniae (PCR) Parainfluenza 1 (PCR) Parainfluenza 2 (PCR) Parainfluenza 3 (PCR) Parainfluenza 4 (PCR) RSV (PCR) RSV RNA Qual (PCR) NEGATIVE Entero/Rhino (PCR) SARS-CoV-2 RNA (RT-PCR) NEGATIVE S. pyogenes GrpA LING Negative 09/23/24 09/23/24 01:15 05:14 WBC 9.8 RBC 3.80 L Hgb 10.7 L Hct 29.9 L MCV 78.7 L MCH 28.2 MCHC 35.8 RDW 14.2 Plt Count 266 MPV 9.1 L Immature Gran % (Auto) 0.5 H Neut % (Auto) 66.6 Lymph % (Auto) 19.3 L [place] % (Auto) 12.7 H Eos % (Auto) 0.6 Baso % (Auto) 0.3 Lymph # (Auto) 1.9 [place] # (Auto) 1.3 H Eos # (Auto) 0.1 Baso # (Auto) 0.0 Abs Immat Gran (auto) 0.05 H Absolute Neuts (auto) 6.6 Absolute Nucleated RBC 0.000 Nucleated RBC % (auto) 0.0 Smear Tech's Comments Hold Purple Top Sodium 133 L Potassium 3.3 Chloride 96 Carbon Dioxide 27 Anion Gap 13 BUN 11 Creatinine 0.76 Estim Creat Clear Calc 121.3 Estimated GFR > 60 Random Glucose 157 H Lactic Acid Calcium 7.6 L D Magnesium Total Bilirubin 0.6 AST 51 H ALT 36 Alkaline Phosphatase 143 H Total Creatine Kinase Total Protein 6.6 Albumin 3.5 Urine Color Yellow Urine Appearance Clear Urine pH 6.0 Ur Specific [place] 1.010 Urine Protein 30 (1+) H Urine Glucose (UA) Negative Urine Ketones Negative Urine Blood Small (1+) H Urine Nitrite Negative Ur Leukocyte Esterase Negative Urine RBC 0-2 Urine WBC 0-5 Ur Squamous Epith Cells 3-5 Urine Bacteria None Seen Hyaline Casts 3-5 Urine Opiates Screen POSITIVE H Ur Buprenorphine Scrn Positive H Ur Oxycodone Screen Not Detected Urine Methadone Screen Not Detected Urine Fentanyl Screen POSITIVE H Ur Barbiturates Screen Not Detected Ur Phencyclidine Scrn Not Detected Ur Amphetamines Screen Not Detected U Benzodiazepines Scrn Not Detected Urine Cocaine Screen POSITIVE H U Marijuana (THC) Screen Not Detected Ethyl Alcohol Respiratory Panel [place] See Note Adenovirus (Rapid PCR) Not Detected B.pert (TEM-PCR) Not Detected B.parapertussis DNA PCR Not Detected C. pneumoniae DNA (PCR) Not Detected Coronavirus OC43 (PCR) Not Detected Coronavirus HKU1 (PCR) Not Detected Coronavirus 229E (PCR) Not Detected Coronavirus NL63 (PCR) Not Detected Human Metapneumovir PCR Not Detected Influenza A (RT-PCR) Not Detected Influenza A (H1) PCR Not Detected Influ A (H1/09) PCR Not Detected Influenza A (H3) PCR Not Detected Influenza Type A (PCR) Influenza B (RT-PCR) Not Detected Influenza Type B (PCR) M. pneumoniae (PCR) Not Detected Parainfluenza 1 (PCR) Not Detected Parainfluenza 2 (PCR) Not Detected Parainfluenza 3 (PCR) Not Detected Parainfluenza 4 (PCR) Not Detected RSV (PCR) Not Detected RSV RNA Qual (PCR) Entero/Rhino (PCR) Not Detected SARS-CoV-2 RNA (RT-PCR) Not Detected S. pyogenes GrpA LING Mental Status Exam Mental Status Exam Level of Consciousness: Awake (eyes closed ) Patient Behavior: Guarded Affect Description: Blunted Speech Pattern: Clear Medications Medications Current Medications Acetaminophen (Acetaminophen 325 Mg Tablet) 650 mg PO Q6H PRN PRN Reason: Pain, Mild 1-3,fever,headache Last Admin: 09/23/24 23:52 Dose: 650 mg Buprenorphine/Naloxone (Buprenorphine/Naloxone 8/2 Mg Film) 1 film SUBLINGUAL BID [facility] Last Admin: 09/24/24 08:18 Dose: 1 film Calcium Carbonate (Calcium Carbonate 750 Mg Tab.Chew) 750 mg PO Q4H PRN PRN Reason: Heartburn Ceftriaxone Sodium (Ceftriaxone Sodium 2 Gm Vial) 2 gm IVPUSH Q24H [facility] Last Admin: 09/23/24 23:52 Dose: 2 gm Escitalopram Oxalate (Escitalopram Oxalate 20 Mg Tablet) 20 mg PO DAILY [facility] Last Admin: 09/24/24 08:18 Dose: 20 mg Heparin Sodium (Porcine) (Heparin Sodium,Porcine 5,000 Unit/Ml Vial) 5,000 unit SUBCUT Q8H [facility] Last Admin: 09/24/24 03:00 Dose: Not Given Lamotrigine (Lamotrigine 100 Mg Tablet) 100 mg PO DAILY [facility] Last Admin: 09/24/24 08:17 Dose: 100 mg Magnesium Hydroxide (Milk Of Magnesia 30 Ml Oral.Susp) 30 ml PO DAILY PRN PRN Reason: Constipation Melatonin (Melatonin 3 Mg Tablet) 6 mg PO BEDTIME PRN PRN Reason: Insomnia Ondansetron HCl (Ondansetron Hcl 4 Mg/2 Ml Vial) 4 mg IVPUSH Q8H PRN PRN Reason: Nausea and Vomiting Last Admin: 09/23/24 17:24 Dose: 4 mg Pharmacy Consult (Consult Rx Etoh Phenob Im/Po) 1 each MISCELLANE ONCE PRN; Protocol PRN Reason: Consult order Phenobarbital (Phenobarbital 15 Mg Tablet) 45 mg PO BID [facility] Stop: 09/24/24 21:01 Last Admin: 09/24/24 08:18 Dose: 45 mg Phenobarbital (Phenobarbital 30 Mg Tablet) 30 mg PO BID [facility] Stop: 09/26/24 21:01 Phenobarbital (Phenobarbital 15 Mg Tablet) 15 mg PO DAILY [facility] Stop: 09/28/24 09:01 Sodium Chloride (0.9 % Sodium Chloride Flush 3 Ml Syringe) 3 ml IVFLUSH QSHIFT [facility] Last Admin: 09/24/24 08:18 Dose: 3 ml Allergies Allergies Allergy/AdvReac Type Severity Reaction Status Date / Time No Known Allergies Allergy Verified 09/22/24 23:07 Assessment & Plan Assessment & Plan (1) Opioid use disorder: Status: Acute Code(s): F11.90 - Opioid use, unspecified, uncomplicated Assessment and Plan: Suboxone 8mg BID has been restarted no concern for opiate withdrawal HIV screen 04/2024--should have hepatitis screening as well (2) Alcohol use disorder, moderate, dependence: Status: Acute Code(s): F10.20 - Alcohol dependence, uncomplicated Assessment and Plan: pheno taper in place PO thiamnine and folic acid Recovery support RN to follow up and discuss recovery supports --patient pending CARE consult once medically cleared due to reported suicidal ideation at admission Total time managing care of this patient today __25__ minutes. PMFSH Past Medical History Medical History (Updated 09/23/24 @ 03:32 by YURIDIA Foster) Grief reaction Dysphagia History of suicidal ideation Cocaine use disorder, moderate, dependence Opioid use disorder Mood disorder Social History Social History Household Members: Unknown / Unable to assess Household Members Other:: pt is very sleepy/lethargic/ drowsy at this time Housing: Homeless Alcohol intake: current Alcohol intake frequency: 3 or more drinks per day Alcohol type: hard liquor Comment: 1:1 sitter for SI Patient Tobacco Use Status: Tobacco use Unknown Tobacco use type: Cigarette Cigarette Packs Per Day: 2 Cigarettes Per Day: 40.0 Smoked in Last 30 Days: Yes e-Cigarette/Vaping Use: Never Used Second Hand Smoke Exposure: No Use of substances other than those prescribed or required for medical reasons: Yes Substance Use Type: Crack/Cocaine, Heroin, IV Drugs, Marijuana, Opiates and Other Substance Use Type Other:: fentanyl Currently Displaying Signs/Symptoms of Drug Intoxication Withdrawal: No Advance Directives: No Advance Directives Information Provided: Yes Do you have a plan to hurt others: Vague Nutrition Risks: No Nutritional Risk Poor oral hygiene: No service: No Sexual orientation: Straight/Heterosexual
[2024-09-24 10:57] LABS: MANUAL DIFF FLAG NO
[2024-09-24 10:58] LABS: Hematocrit 34.6 % (42.0-52.0); Hemoglobin 11.6 g/dl (14.0-18.0); Imm Gran Abs Auto 0.05 X10*3/uL (0.00-0.03); Imm Gran Pct Auto 0.8 % (0.0-0.4); Lymphocytes Absolute Auto 1.2 X10*3/uL (1.2-4.9); Mean Corpuscular HGB Conc 33.5 g/dl (31.0-36.0); Mean Corpuscular Hemoglobin 28.0 pg (27.0-33.0); Mean Corpuscular Volume 83.4 fL (80.0-98.0); NRBC Abs Auto 0.000 X10*3/uL (0.0-0.012); NRBC Pct Auto 0.0 /100WBC (0.0-0.2); Platelet Count 284 X10*3/uL (160-400); Red Blood Count 4.15 X10*6/uL (4.60-5.80); White Blood Count 6.4 X10*3/uL (4.8-10.8)
--- NOTE | 2024-09-24 11:13 | HO.PM.IMPN ---
Subjective Subjective Date of Service: 09/24/24 Interval History: f/u fever,Toxic encephalopathy no events overnight. No further fever since admission. Patient is still not feeling well, complaining of bilateral foot pain still reporting SI Review of Systems Review of Systems: Yes all other systems are reviewed and are negative Physical Exam Exam: Exam: General: AOx3, somnolent but responsive, no acute distress Resp: CTA bilaterally CVS: S1, S2, RRR. pedal pulses intact bilaterally. GI: +BS, NT, no distention Skin: Warm, dry. small abscess/folliculitis L chest. small wounds on bilateral feet. no signs of necrosis or drainage from wounds. no surrounding warmth, mild redness, does not appear cellulitic. Neuro: Cranial nerves II-XII grossly intact bilaterally. Motor grossly intact bilaterally Extremities: No LE edema Psych: Depressed Vital Signs: Vital Signs: Last Vital Signs Temp 98.4 F 09/24/24 07:42 Pulse 71 09/24/24 07:42 Resp 18 09/24/24 07:42 BP 127/70 09/24/24 07:42 Pulse Ox 94 09/24/24 07:42 O2 Del Method Room Air 09/24/24 07:42 BMI result Body Mass Index 28.8 Objective Data Active Medications Acetaminophen (Acetaminophen 325 Mg Tablet) 650 mg PO Q6H PRN PRN Reason: Pain, Mild 1-3,fever,headache Last Admin: 09/23/24 23:52 Dose: 650 mg Documented By: BAR Buprenorphine/Naloxone (Buprenorphine/Naloxone 8/2 Mg Film) 1 film SUBLINGUAL BID [facility] Last Admin: 09/24/24 08:18 Dose: 1 film Documented By: WES Calcium Carbonate (Calcium Carbonate 750 Mg Tab.Chew) 750 mg PO Q4H PRN PRN Reason: Heartburn Ceftriaxone Sodium (Ceftriaxone Sodium 2 Gm Vial) 2 gm IVPUSH Q24H [facility] Last Admin: 09/23/24 23:52 Dose: 2 gm Documented By: BAR Escitalopram Oxalate (Escitalopram Oxalate 20 Mg Tablet) 20 mg PO DAILY [facility] Last Admin: 09/24/24 08:18 Dose: 20 mg Documented By: WES Heparin Sodium (Porcine) (Heparin Sodium,Porcine 5,000 Unit/Ml Vial) 5,000 unit SUBCUT Q8H [facility] Last Admin: 09/24/24 03:00 Dose: Not Given Documented By: BAR Non-Admin Reason: Patient Refused Lamotrigine (Lamotrigine 100 Mg Tablet) 100 mg PO DAILY [facility] Last Admin: 09/24/24 08:17 Dose: 100 mg Documented By: WES Magnesium Hydroxide (Milk Of Magnesia 30 Ml Oral.Susp) 30 ml PO DAILY PRN PRN Reason: Constipation Melatonin (Melatonin 3 Mg Tablet) 6 mg PO BEDTIME PRN PRN Reason: Insomnia Ondansetron HCl (Ondansetron Hcl 4 Mg/2 Ml Vial) 4 mg IVPUSH Q8H PRN PRN Reason: Nausea and Vomiting Last Admin: 09/23/24 17:24 Dose: 4 mg Documented By: JULI Pharmacy Consult (Consult Rx Etoh Phenob Im/Po) 1 each MISCELLANE ONCE PRN; Protocol PRN Reason: Consult order Phenobarbital (Phenobarbital 15 Mg Tablet) 45 mg PO BID [facility] Stop: 09/24/24 21:01 Last Admin: 09/24/24 08:18 Dose: 45 mg Documented By: WES Phenobarbital (Phenobarbital 30 Mg Tablet) 30 mg PO BID [facility] Stop: 09/26/24 21:01 Phenobarbital (Phenobarbital 15 Mg Tablet) 15 mg PO DAILY [facility] Stop: 09/28/24 09:01 Sodium Chloride (0.9 % Sodium Chloride Flush 3 Ml Syringe) 3 ml IVFLUSH QSHIFT [facility] Last Admin: 09/24/24 08:18 Dose: 3 ml Documented By: WES Labs 09/24/24 10:49 09/23/24 05:14 Labs: Laboratory Results - last 24 hr 09/23/24 09/24/24 05:14 10:49 MCV 83.4 MCH 28.0 MCHC 33.5 RDW 14.5 Plt Count 284 MPV 9.3 L Immature Gran % (Auto) 0.8 H Neut % (Auto) 66.4 Lymph % (Auto) 19.2 L [place] % (Auto) 12.0 H Eos % (Auto) 1.3 Baso % (Auto) 0.3 Lymph # (Auto) 1.2 [place] # (Auto) 0.8 Eos # (Auto) 0.1 Baso # (Auto) 0.0 Abs Immat Gran (auto) 0.05 H Absolute Neuts (auto) 4.3 Absolute Nucleated RBC 0.000 Nucleated RBC % (auto) 0.0 Respiratory Panel Vasquez See Note Adenovirus (Rapid PCR) Not Detected B.pert (TEM-PCR) Not Detected B.parapertussis DNA PCR Not Detected C. pneumoniae DNA (PCR) Not Detected Coronavirus OC43 (PCR) Not Detected Coronavirus HKU1 (PCR) Not Detected Coronavirus 229E (PCR) Not Detected Coronavirus NL63 (PCR) Not Detected Human Metapneumovir PCR Not Detected Influenza A (RT-PCR) Not Detected Influenza A (H1) PCR Not Detected Influ A (H1/09) PCR Not Detected Influenza A (H3) PCR Not Detected Influenza B (RT-PCR) Not Detected M. pneumoniae (PCR) Not Detected Parainfluenza 1 (PCR) Not Detected Parainfluenza 2 (PCR) Not Detected Parainfluenza 3 (PCR) Not Detected Parainfluenza 4 (PCR) Not Detected RSV (PCR) Not Detected Entero/Rhino (PCR) Not Detected SARS-CoV-2 RNA (RT-PCR) Not Detected Microbiology Microbiology Results: Microbiology 09/22/24 23:22 Blood Culture - Preliminary Blood - Venous No growth after 24 hours. 09/22/24 23:22 Blood Culture - Preliminary Blood - Venous No growth after 24 hours. Assessment and Plan (1) Fever of unknown origin: Status: Acute (2) Suicidal ideation: Status: Acute (3) Alcohol withdrawal: Status: Acute Plan Patient is a 49-year-old male with a past medical history significant for alcohol use disorder, severe alcohol withdrawal with seizures, polysubstance abuse/IVDA, and major depressive disorder, who presented to the ED due to SI with associated viral symptoms including cough, sore throat and raspy voice. previous concern for severe sepsis with fever of unknown origin, ?viral illness. no longer suspecting sepsis. - fevers no longer present, leukocytosis resolved, tachycardia likely from drug use, as well as KAY - small folliculitis ? abscess on left chest. Not likely contributing. - transaminitis from alcohol use - blood cultures x2 pending - CXR negative - UA negative - COVID/flu/RSV negative - strep negative - continue on ceftriaxone prophylactically - blood pressures stable - ID consult pending - monitor CBC and CMP Toxic encephalopathy -- secondary to drug use/etoh, resolved - polysubstance abuse and etoh abuse - UTox positive for opiates, buprenorphine, fentanyl, cocaine - thiamine, folic acid, multivitamin - addiction med consult - phenobarb protocol - monitor CIWA - seizure precautions Bilateral foot pain - XR bilateral feel - no signs of necrosis, pulses intact bilaterally - check B12 level KAY, resolved - cr improved - monitor kidney function acute hyponatermia and hypokalemia, resolved - sodium 135, chloride 95, bicarb 32, potassium 3.3 - add 1L NS - monitor BMP Elevated LFTs - likely from chronic alcohol use - right upper quadrant ultrasound normal Mood disorder/SI - continue home meds - will need care team eval once mentating better Full code VTE prophylaxis: Heparin continued need for hospitalization: awaiting blood cultures, care team evaluation once medically cleared Quality Stroke Does the patient have a stroke diagnosis?: No VTE Prior VTE?: No VTE Risk Level:: Medical - moderate - high VTE Device Contraindication: Treatment Not Indicated VTE Drug Contraindication: N/A - Med Ordered
[2024-09-24 11:18] LABS: Alanine Aminotransferase 31 U/L (0-40); Albumin Level 3.4 g/dL (3.5-5.0); Alkaline Phosphatase 139 U/L (39-117); Anion Gap 11 (12-20); Aspartate Amino Transferase 49 U/L (5-37); Blood Urea Nitrogen 6 mg/dL (9-16); Calcium 8.3 mg/dL (8.4-10.2); Carbon Dioxide 32 mmol/L (22-29); Chloride 95 mmol/L (96-108); Creatinine Clr Calc Pharmacy 174.9; Estimated Glomerular Filt Rate > 60; Potassium 3.3 mmol/L (3.3-5.1); Sodium 135 mmol/L (135-145); Total Protein 6.7 g/dL (6.5-8.0)
--- NOTE | 2024-09-24 11:54 | MHC.CM.PN ---
Per chart review(Cannot awake Patient to answer), Patient appears homeless. Patient will require a Care Team Consult (SI & ATTEMPT/PLAN) and Recovery Consult (on Suboxone and Polysubstance Use) to assist with disposition. CM has initiated and will follow for dc planning. No HCP available and PCP is Dr. Jennifer Moreno.
[2024-09-24 13:47] LABS: Folate 10.9 ng/mL (> or = 4.0); Vitamin B12 1474 pg/mL (200-900)
--- NOTE | 2024-09-24 16:38 | W.PM.IDCN ---
History of Present Illness Data of Consult Service Date: 09/24/24 Requesting physician: Fabiola Lemons Primary Care Provider: Jennifer Ramirez MD [facility] Reason for consult: fever of unknown origin He comes in with throat discomfort for a day. He has no other complaints He has blood cultures negative. Review of Systems Review of Systems: Yes all other systems are reviewed and are negative PMFSH Past Medical History Medical History Grief reaction Dysphagia History of suicidal ideation Cocaine use disorder, moderate, dependence Opioid use disorder Mood disorder Family History Family history: reviewed and not pertinent Social History Social History Household Members: Unknown / Unable to assess Household Members Other:: pt is very sleepy/lethargic/ drowsy at this time Housing: Homeless Alcohol intake: current Alcohol intake frequency: 3 or more drinks per day Alcohol type: hard liquor Comment: 1:1 sitter for SI Patient Tobacco Use Status: Tobacco use Unknown Tobacco use type: Cigarette Cigarette Packs Per Day: 2 Cigarettes Per Day: 40.0 Smoked in Last 30 Days: Yes e-Cigarette/Vaping Use: Never Used Second Hand Smoke Exposure: No Use of substances other than those prescribed or required for medical reasons: Yes Substance Use Type: Crack/Cocaine, Heroin, IV Drugs, Marijuana, Opiates and Other Substance Use Type Other:: fentanyl Currently Displaying Signs/Symptoms of Drug Intoxication Withdrawal: No Advance Directives: No Advance Directives Information Provided: Yes Do you have a plan to hurt others: Vague Nutrition Risks: No Nutritional Risk Poor oral hygiene: No service: No Sexual orientation: Straight/Heterosexual Meds Allergies Allergy/AdvReac Type Severity Reaction Status Date / Time No Known Allergies Allergy Verified 09/22/24 23:07 Active Medications: Current Medications Acetaminophen (Acetaminophen 325 Mg Tablet) 650 mg PO Q6H PRN PRN Reason: Pain, Mild 1-3,fever,headache Last Admin: 09/23/24 23:52 Dose: 650 mg Amphetamine/Dextroamphetamine (Amphetamine Mixed Salts 20 Mg Tablet) 20 mg PO 1400,1700 [facility] Last Admin: 09/24/24 15:16 Dose: Not Given Buprenorphine/Naloxone (Buprenorphine/Naloxone 8/2 Mg Film) 1 film SUBLINGUAL BID [facility] Last Admin: 09/24/24 08:18 Dose: 1 film Calcium Carbonate (Calcium Carbonate 750 Mg Tab.Chew) 750 mg PO Q4H PRN PRN Reason: Heartburn Ceftriaxone Sodium (Ceftriaxone Sodium 2 Gm Vial) 2 gm IVPUSH Q24H [facility] Last Admin: 09/23/24 23:52 Dose: 2 gm Cyanocobalamin (Cyanocobalamin (Vitamin B-12) 1,000 Mcg Tablet) 1,000 mcg PO DAILY [facility] Last Admin: 09/24/24 12:04 Dose: 1,000 mcg Diphenhydramine HCl (Diphenhydramine Hcl 25 Mg Capsule) 50 mg PO BEDTIME [facility] Escitalopram Oxalate (Escitalopram Oxalate 20 Mg Tablet) 20 mg PO DAILY [facility] Last Admin: 09/24/24 08:18 Dose: 20 mg Folic Acid (Folic Acid 1 Mg Tablet) 1 mg PO DAILY [facility] Heparin Sodium (Porcine) (Heparin Sodium,Porcine 5,000 Unit/Ml Vial) 5,000 unit SUBCUT Q8H [facility] Last Admin: 09/24/24 12:04 Dose: 5,000 unit Lamotrigine (Lamotrigine 100 Mg Tablet) 100 mg PO DAILY [facility] Last Admin: 09/24/24 08:17 Dose: 100 mg Magnesium Hydroxide (Milk Of Magnesia 30 Ml Oral.Susp) 30 ml PO DAILY PRN PRN Reason: Constipation Melatonin (Melatonin 3 Mg Tablet) 6 mg PO BEDTIME PRN PRN Reason: Insomnia Multivitamins/Vitamin C (Multivitamin Tablet) 1 tab PO DAILY [facility] Nicotine Polacrilex (Nicotine Polacrilex 2 Mg Gum) 4 mg BUCCAL Q2H PRN PRN Reason: Nicotine Cravings Non-Formulary Medication (Atomoxetine) 40 mg PO DAILY [facility] Non-Formulary Medication (Linaclotide [Linzess]) 145 mcg PO DAILY [facility] Non-Formulary Medication (Lisdexamfetamine [Vyvanse]) 40 mg PO DAILY [facility] Ondansetron HCl (Ondansetron Hcl 4 Mg/2 Ml Vial) 4 mg IVPUSH Q8H PRN PRN Reason: Nausea and Vomiting Last Admin: 09/23/24 17:24 Dose: 4 mg Pharmacy Consult (Consult Rx Etoh Phenob Im/Po) 1 each MISCELLANE ONCE PRN; Protocol PRN Reason: Consult order Phenobarbital (Phenobarbital 15 Mg Tablet) 45 mg PO BID [facility] Stop: 09/24/24 21:01 Last Admin: 09/24/24 08:18 Dose: 45 mg Phenobarbital (Phenobarbital 30 Mg Tablet) 30 mg PO BID [facility] Stop: 09/26/24 21:01 Phenobarbital (Phenobarbital 15 Mg Tablet) 15 mg PO DAILY [facility] Stop: 09/28/24 09:01 Quetiapine Fumarate (Quetiapine Fumarate 200 Mg Tablet) 200 mg PO BEDTIME [facility] Sodium Chloride (0.9 % Sodium Chloride Flush 3 Ml Syringe) 3 ml IVFLUSH QSHIFT [facility] Last Admin: 09/24/24 08:18 Dose: 3 ml Thiamine HCl (Thiamine Hcl 100 Mg Tablet) 100 mg PO DAILY [facility] Home Medications ?Medication ?Instructions ?Recorded ?Confirmed ?Last Taken ?Type buprenorphine 8 mg-naloxone 2 mg 1 film sublingual BID 05/22/24 09/23/24 Unknown History sublingual film (Suboxone) cyanocobalamin (vitamin B-12) 1,000 mcg PO DAILY 05/22/24 09/23/24 Unknown History 1,000 mcg tablet quetiapine 200 mg tablet 200 mg PO BEDTIME 05/22/24 09/23/24 Unknown History atomoxetine 40 mg capsule 40 mg PO DAILY 09/23/24 09/23/24 Unknown History baclofen 5 mg tablet 5 mg PO TID PRN muscle spasms 09/23/24 09/23/24 Unknown History clonidine HCl 0.1 mg tablet 0.1 mg PO TID 09/23/24 09/23/24 Unknown History diphenhydramine HCl 50 mg capsule 50 mg PO BEDTIME 09/23/24 09/23/24 Unknown History (Banophen) folic acid 1 mg tablet 1 mg PO DAILY 09/23/24 09/23/24 Unknown History lamotrigine 100 mg tablet 100 mg PO DAILY 09/23/24 09/23/24 Unknown History linaclotide 145 mcg capsule 145 mcg PO DAILY 09/23/24 09/23/24 Unknown History (Linzess) lisdexamfetamine 40 mg capsule 40 mg PO DAILY 09/23/24 09/23/24 Unknown History (Vyvanse) propranolol 20 mg tablet 20 mg PO BID 09/23/24 09/23/24 Unknown History Physical Exam Vital Signs: Vital Signs: Last Vital Signs Temp 98.1 F 09/24/24 15:35 Pulse 74 09/24/24 15:35 Resp 20 09/24/24 15:35 BP 131/72 09/24/24 15:35 Pulse Ox 96 09/24/24 15:35 O2 Del Method Room Air 09/24/24 15:35 BMI result Body Mass Index 28.8 Const: General: cooperative HEENT: Head: Yes normal to inspection Face and sinus: Yes normal facial exam Mouth: Normal oral and palatal mucosa present Teeth and gingiva: dentition normal Eyes: General: appearance normal, both eyes and all related structures Pupils: Equal, round and reactive pupils present Resp: Effort & Inspection: normal respiratory effort Cardio: Rate: regular rate Rhythm: regular rhythm GI: Palpation (GI): Soft to palpation and nontender : General: Yes no CVA tenderness Back/Spine/Pelvis: Back: no CVA tenderness Skin: General skin exam: no rashes or lesions noted Neuro: General: moves all extremities Cranial nerves: Yes Equal, round and reactive pupils present Extrem: General: Yes normal to inspection Psych: Appearance: grossly normal Results Labs 09/24/24 10:49 09/24/24 10:49 Labs: Short CBC 09/24/24 Range/Units 10:49 WBC 6.4 (4.8-10.8) X10*3/uL Hgb 11.6 L (14.0-18.0) g/dl Hct 34.6 L (42.0-52.0) % Plt Count 284 (160-400) X10*3/uL BMP 09/24/24 10:49 Sodium 135 Potassium 3.3 Chloride 95 L Carbon Dioxide 32 H BUN 6 L Creatinine 0.58 Calcium 8.3 L D Liver Function 09/24/24 Range/Units 10:49 Total Bilirubin 0.3 (0.0-1.0) mg/dL AST 49 H (5-37) U/L ALT 31 (0-40) U/L Alkaline Phosphatase 139 H (39-117) U/L Albumin 3.4 L (3.5-5.0) g/dL Microbiology Microbiology Results: Microbiology 09/22/24 23:22 Blood - Venous Blood Culture - Preliminary No growth after 24 hours. 09/22/24 23:22 Blood - Venous Blood Culture - Preliminary No growth after 24 hours. Assessment and Plan (1) Suicidal ideation: Status: Acute (2) Opioid use disorder: Status: Acute (3) Fever: Status: Acute Plan Patient has sore throat but no evidence bacteremia,?strep pending Check strep Check HIV Stop Ceftriaxone if all negative.
--- NOTE | 2024-09-24 16:51 | MHC.RECOVRN ---
TW attempted to meet with pt per [facility] consult for ETOH withdrawal. on Approach pt is sleeping in bed w/ 1:1 staff in room. 1:1 staff reports pt has been sleeping all day and was just mediated w/ pain medication. Pt was not easily awoken and difficult to understand. Speech is low in volume and mumbled. Pt does report feeling a little better and asked that TW come back later . Will attempt to visit in the morning. TW available for questions and concerns if needed.
[2024-09-24] MEDS: oxyCODONE HCl Immed Release 5 MG TABLET PO (18:16)
[2024-09-25] MEDS: 0.9 % Sodium Chloride Flush 3 ML SYRINGE IVFLUSH ×2 (00:37→09:14)
[2024-09-25 04:00] VITALS: BP 115/63; PULSE 67; RESP 18; TEMP 36.6; O2SAT 98
[2024-09-25 07:08] VITALS: BP 106/57; PULSE 60; RESP 18; TEMP 36.9; O2SAT 98
[2024-09-25 10:58] VITALS: BP 124/57; PULSE 80; RESP 20; TEMP 37.1; O2SAT 97
--- NOTE | 2024-09-25 14:13 | MHC.RECOVRN ---
attempted to meet with pt twice to offer support and resources regarding JAE. Pt is difficult to awaken, and when speaking, is difficult to understand and follow. Unable to complete recovery/bh assessment at this time. TW will attempt to meet with pt tomorrow.
--- NOTE | 2024-09-25 14:27 | HO.PM.IMPN ---
Subjective Subjective Date of Service: 09/25/24 Interval History: f/u toxic encehalopathy no events overnight. pt complaining of body aches. states he is withdrawaling Review of Systems Review of Systems: Yes all other systems are reviewed and are negative Physical Exam Exam: Exam: General: AOx3, no acute distress Resp: CTA bilaterally CVS: S1, S2, RRR GI: +BS, NT, no distention Skin: Warm, dry Neuro: Cranial nerves II-XII grossly intact bilaterally. Motor grossly intact bilaterally Extremities: No LE edema Psych: Appropriate affect Vital Signs: Vital Signs: Last Vital Signs Temp 98.8 F 09/25/24 10:58 Pulse 80 09/25/24 10:58 Resp 20 09/25/24 10:58 BP 124/57 L 09/25/24 10:58 Pulse Ox 97 09/25/24 10:58 O2 Del Method Room Air 09/25/24 10:58 BMI result Body Mass Index 28.8 Objective Data Active Medications Acetaminophen (Acetaminophen 325 Mg Tablet) 650 mg PO Q6H PRN PRN Reason: Pain, Mild 1-3,fever,headache Last Admin: 09/24/24 17:23 Dose: 650 mg Documented By: WES Amphetamine/Dextroamphetamine (Amphetamine Mixed Salts 20 Mg Tablet) 20 mg PO 1400,1700 [facility] Last Admin: 09/24/24 17:32 Dose: Not Given Documented By: WES Non-Admin Reason: Patient Refused Baclofen (Baclofen 10 Mg Tablet) 5 mg PO TID PRN PRN Reason: muscle spasms Buprenorphine/Naloxone (Buprenorphine/Naloxone 8/2 Mg Film) 1 film SUBLINGUAL BID [facility] Last Admin: 09/25/24 09:14 Dose: 1 film Documented By: IESHA Calcium Carbonate (Calcium Carbonate 750 Mg Tab.Chew) 750 mg PO Q4H PRN PRN Reason: Heartburn Clonidine HCl (Clonidine Hcl 0.1 Mg Tablet) 0.1 mg PO TID [facility]; Protocol Last Admin: 09/25/24 09:32 Dose: Not Given Documented By: IESHA Non-Admin Reason: BP soft Cyanocobalamin (Cyanocobalamin (Vitamin B-12) 1,000 Mcg Tablet) 1,000 mcg PO DAILY [facility] Last Admin: 09/25/24 09:14 Dose: 1,000 mcg Documented By: IESHA Diphenhydramine HCl (Diphenhydramine Hcl 25 Mg Capsule) 50 mg PO BEDTIME [facility] Last Admin: 09/24/24 21:35 Dose: 50 mg Documented By: BAR Escitalopram Oxalate (Escitalopram Oxalate 20 Mg Tablet) 20 mg PO DAILY [facility] Last Admin: 09/25/24 09:11 Dose: 20 mg Documented By: IESHA Folic Acid (Folic Acid 1 Mg Tablet) 1 mg PO DAILY [facility] Last Admin: 09/25/24 09:14 Dose: 1 mg Documented By: IESHA Heparin Sodium (Porcine) (Heparin Sodium,Porcine 5,000 Unit/Ml Vial) 5,000 unit SUBCUT Q8H [facility] Last Admin: 09/25/24 12:34 Dose: 5,000 unit Documented By: PATRICK Hydroxyzine HCl (Hydroxyzine Hcl 25 Mg Tablet) 25 mg PO Q6H PRN PRN Reason: Anxiety Lamotrigine (Lamotrigine 100 Mg Tablet) 100 mg PO DAILY [facility] Last Admin: 09/25/24 09:14 Dose: 100 mg Documented By: IESHA Magnesium Hydroxide (Milk Of Magnesia 30 Ml Oral.Susp) 30 ml PO DAILY PRN PRN Reason: Constipation Melatonin (Melatonin 3 Mg Tablet) 6 mg PO BEDTIME PRN PRN Reason: Insomnia Multivitamins/Vitamin C (Multivitamin Tablet) 1 tab PO DAILY [facility] Last Admin: 09/25/24 09:14 Dose: 1 tab Documented By: IESHA Nicotine Polacrilex (Nicotine Polacrilex 2 Mg Gum) 4 mg BUCCAL Q2H PRN PRN Reason: Nicotine Cravings Non-Formulary Medication (Atomoxetine) 40 mg PO DAILY [facility] Non-Formulary Medication (Linaclotide [Linzess]) 145 mcg PO DAILY [facility] Non-Formulary Medication (Lisdexamfetamine [Vyvanse]) 40 mg PO DAILY [facility] Ondansetron HCl (Ondansetron Hcl 4 Mg/2 Ml Vial) 4 mg IVPUSH Q8H PRN PRN Reason: Nausea and Vomiting Last Admin: 09/23/24 17:24 Dose: 4 mg Documented By: PHANLLORENA Oxycodone HCl (Oxycodone Hcl Immed Release 5 Mg Tablet) 5 mg PO Q4H PRN PRN Reason: foot pain Last Admin: 09/24/24 18:16 Dose: 5 mg Documented By: WES Pharmacy Consult (Consult Rx Etoh Phenob Im/Po) 1 each MISCELLANE ONCE PRN; Protocol PRN Reason: Consult order Phenobarbital (Phenobarbital 30 Mg Tablet) 30 mg PO BID [facility] Stop: 09/26/24 21:01 Last Admin: 09/25/24 09:11 Dose: 30 mg Documented By: IESHA Phenobarbital (Phenobarbital 15 Mg Tablet) 15 mg PO DAILY [facility] Stop: 09/28/24 09:01 Quetiapine Fumarate (Quetiapine Fumarate 200 Mg Tablet) 200 mg PO BEDTIME [facility] Last Admin: 09/24/24 21:34 Dose: 200 mg Documented By: BAR Sodium Chloride (0.9 % Sodium Chloride Flush 3 Ml Syringe) 3 ml IVFLUSH QSHIFT [facility] Last Admin: 09/25/24 09:14 Dose: 3 ml Documented By: IESHA Thiamine HCl (Thiamine Hcl 100 Mg Tablet) 100 mg PO DAILY [facility] Last Admin: 09/25/24 09:14 Dose: 100 mg Documented By: IESHA Labs 09/24/24 10:49 09/24/24 10:49 Microbiology Microbiology Results: Microbiology 09/22/24 23:22 Blood Culture - Preliminary Blood - Venous No growth after 48 hours. 09/22/24 23:22 Blood Culture - Preliminary Blood - Venous No growth after 48 hours. Assessment and Plan (1) Alcohol withdrawal: Status: Acute (2) Polysubstance (including opioids) dependence with physiological dependence: Status: Acute (3) Suicidal ideation: Status: Acute Plan Patient is a 49-year-old male with a past medical history significant for alcohol use disorder, severe alcohol withdrawal with seizures, polysubstance abuse/IVDA, and major depressive disorder, who presented to the ED due to SI with associated viral symptoms including cough, sore throat and raspy voice. previous concern for severe sepsis with fever of unknown origin, ?viral illness. met SIRS criteria but not sepsis. - fevers no longer present, leukocytosis resolved, tachycardia likely from drug use, as well as KAY - small folliculitis ? abscess on left chest. Not likely contributing. - transaminitis from alcohol use - blood cultures x2 negative x48 hours - CXR negative - UA negative - COVID/flu/RSV negative - strep negative - HIV ordered, pt refusing labs - discontinue ceftriaxone per ID - blood pressures stable - monitor CBC and CMP Toxic encephalopathy -- secondary to drug use/etoh, resolved - polysubstance abuse and etoh abuse - UTox positive for opiates, buprenorphine, fentanyl, cocaine - thiamine, folic acid, multivitamin - addiction med consult - phenobarb protocol - monitor CIWA - seizure precautions Bilateral foot pain - XR bilateral feet negative - no signs of necrosis, pulses intact bilaterally - B12 normal KAY, resolved - cr improved - monitor kidney function acute hyponatermia and hypokalemia, resolved - pt refusing labs but resolved yesterday Elevated LFTs - likely from chronic alcohol use - right upper quadrant ultrasound normal Mood disorder/SI - continue home meds - inpt LOC per care team, bed search Full code VTE prophylaxis: Heparin continued need for hospitalization: psych bed search. medically cleared Quality Stroke Does the patient have a stroke diagnosis?: No VTE Prior VTE?: No VTE Risk Level:: Medical - moderate - high VTE Device Contraindication: Treatment Not Indicated VTE Drug Contraindication: N/A - Med Ordered
--- NOTE | 2024-09-25 14:48 | MHC.CARE ---
Patient evaluated by the CARE Team, disposition inpatient psychiatric treatment. Provider YURIDIA Lomax updated
[2024-09-25 15:03] VITALS: BP 124/60; PULSE 71; RESP 18; TEMP 36.4; O2SAT 94
--- NOTE | 2024-09-25 16:19 | P.DS_ITS ---
DS: Providers Provider Date of Service: 09/25/24 Date of admission: 09/23/24 02:59 Date of discharge: 09/25/24 Primary care physician: Jennifer Ramirez MD Consults: 09/23/24 03:05 Addiction Medicine Provider Routine Consulting Provider: Addiction Covering Reason for consultation: polysubstance abuse Has provider been notified: No 09/23/24 03:41 Consult to Infectious Diseases Routine Consulting Provider: [facility] Reason for consultation: severe sepsis, FUO Has provider been notified: No 09/25/24 10:35 Inpt CARE Team Crisis Consult Routine Comment: Reason for consultation: SI DS: Diagnosis Discharge Diagnosis (1) Alcohol withdrawal: Status: Acute (2) Polysubstance (including opioids) dependence with physiological dependence: Status: Acute (3) Suicidal ideation: Status: Acute DS: Summary Hospital Course Hospital Course: H&P on admission: Patient is a 49-year-old male with a past medical history significant for alcohol use disorder, severe alcohol withdrawal with seizures, polysubstance abuse/IVDA, and major depressive disorder, who presented to the ED due to SI with associated viral symptoms including cough, sore throat and raspy voice. Patient noted a rash all over his body chronic bilateral foot pain. He was found outside lying on the sidewalk after calling EMS due to SI, plan to overdose. He reported that he does ?every drug ?and drinks a handle of alcohol daily with intent of harm. He reported that he has been sick for the past few days. The patient received IV Valium in the ED and has been somnolent, unable to provide history at this time. hosptial course: Patient initially admitted with SIRS criteria, no sepsis identified. Workup negative and patient no longer febrile, no leukocytosis. Chest x-ray negative, UA negative, COVID/flu/RSV negative, viral panel negative. Blood cultures x2 negative times 48 hours. LFTs elevated likely secondary to alcohol use disorder. KAY secondary to polysubstance abuse, kidney function improved. Toxic encephalopathy also improved, secondary to drug use/alcohol. He did have some acute electrolyte abnormalities including hyponatremia and hypokalemia which improved however patient is declining further labs. Patient did complain of bilateral foot pain, this has improved. Bilateral foot x-rays negative, B12 normal. Patient was seen by infectious disease who recommended strep testing which was negative as well as HIV which patient has been refusing. Recommendation to discontinue IV antibiotics as no infection has been identified. Patient's symptoms are likely secondary to withdrawal from polysubstance this as well as alcohol. He has been managed on a phenobarb taper, which should be continued on the psych floor if CIWA scores elevated. Patient continues to express SI, care team eval significant, patient will be transferred to psych floor. Status at Discharge Functional status at discharge: uses cane/walker Overall status at discharge: patient is progressing back to baseline Time Attestation Discharge Coordination Time (in mins): >30 mins Quality: Safe Use of Opioids Does Pt have an Active Cancer Diagnosis on the Problem List?: No Quality: Stroke Does the patient have a stroke diagnosis?: No Physical Exam Exam: Exam: General: AOx3, no acute distress Resp: CTA bilaterally CVS: S1, S2, RRR GI: +BS, NT, no distention Skin: Warm, dry Neuro: Cranial nerves II-XII grossly intact bilaterally. Motor grossly intact bilaterally Extremities: No LE edema Psych: Appropriate affect Vital Signs: Vital Signs: Last Vital Signs Temp 97.5 F 09/25/24 15:03 Pulse 71 09/25/24 15:03 Resp 18 09/25/24 15:03 BP 124/60 09/25/24 15:03 Pulse Ox 94 09/25/24 15:03 O2 Del Method Room Air 09/25/24 15:03 BMI result Body Mass Index 28.8 DS: Data Data Completed and Pending Completed studies during hospitalization [Text1]: Procedures Detoxification Services for Substance Abuse Treatment (05/22/24) Insertion of Endotracheal Airway into Trachea, Via Natural or Artificial Opening (04/30/24) Insertion of Infusion Device into Right Atrium, Percutaneous Approach (04/30/24) Introduction of Vasopressor into Peripheral Vein, Percutaneous Approach (04/30/24) Respiratory Ventilation, Greater than 96 Consecutive Hours (04/30/24) Ultrasonography of Superior Vena Cava, Guidance (04/30/24) Labs on day of discharge: Preliminary micro results at discharge 09/22/24 23:22 Blood Culture - Preliminary Blood - Venous No growth after 48 hours. 09/22/24 23:22 Blood Culture - Preliminary Blood - Venous No growth after 48 hours. Discharge Plan Discharge Anticipated Discharge Date/Time: 09/25/24 16:08 Patient Disposition: Xfer Psychiatric Hosp Discharge Diagnosis: SI, toxic encephalopathy secondary to polysubstance abuse Referrals: Jennifer Meyer MD [Primary Care Provider, Internal Medicine] - 1 Week Discharge Medications: Continued escitalopram oxalate 20 mg Tablet 20 mg PO DAILY Qty: 7 0RF quetiapine 200 mg tablet 200 mg PO BEDTIME cyanocobalamin (vitamin B-12) 1,000 mcg tablet 1,000 mcg PO DAILY buprenorphine-naloxone [Suboxone] 8-2 mg film 1 film sublingual BID multivitamin [Daily-See] Tablet 1 tab PO DAILY Qty: 0 0RF nicotine (polacrilex) 2 mg Gum 4 mg buccal Q2H PRN (Reason: Nicotine Cravings) Qty: 0 0RF dextroamphetamine-amphetamine 20 mg Tablet 20 mg PO 1400,1700 Qty: 0 0RF Rx Instructions: Partial Fill upon patient request. thiamine mononitrate (vit B1) 100 mg Tablet 100 mg PO DAILY Qty: 0 0RF clonidine HCl 0.1 mg tablet 0.1 mg PO TID diphenhydramine HCl [Banophen] 50 mg capsule 50 mg PO BEDTIME folic acid 1 mg tablet 1 mg PO DAILY propranolol 20 mg tablet 20 mg PO BID lamotrigine 100 mg tablet 100 mg PO DAILY atomoxetine 40 mg capsule 40 mg PO DAILY Linzess 145 mcg capsule 145 mcg PO DAILY baclofen 5 mg tablet 5 mg PO TID PRN (Reason: muscle spasms) lisdexamfetamine [Vyvanse] 40 mg capsule 40 mg PO DAILY Discharge Orders: Discharge Order (Routine); Ordered 09/25/24 Ordered By: Fabiola Lemons Diet: Regular diet Activity on Discharge: No Restrictions Stand Alone Forms: Patient Portal Discharge page Print Language: Romansh Care Plan Goals: stabilize mentally continue sobriety from alcohol and polysubstances Health Concerns: SI polysubstance abuse with withdrawal alcohol abuse with withdrawal Plan of Treatment: transfer to adult psychiatry for mental health stabilization continue monitoring for withdrawal and manage with floor protcol medications if indicated Assessment: see above
== END 2024-09-25 18:16 | DRG 773 ==
LOC: HO.ED 09-23 03:05 → HO.EDOVER 09-23 03:22 → HO.IMC 09-23 09:34
PROVIDERS: Physician Assistant Medical; Admitting Provider Physician Assistant; Emergency Provider Emergency Medicine; PCP Internal Medicine; Visit Provider Physician Assistant
DX: F10.239 Alcohol dependence with withdrawal, unspecified (principal); F11.20 Opioid dependence, uncomplicated; G92.8 Other toxic encephalopathy; N17.9 Acute kidney failure, unspecified; E87.1 Hypo-osmolality and hyponatremia; M79.672 Pain in left foot; M79.671 Pain in right foot; F19.939 Other psychoactive substance use, unspecified with withdrawal, unspecified; R45.851 Suicidal ideations; E87.6 Hypokalemia; F39 Unspecified mood [affective] disorder; Z20.822 Contact with and (suspected) exposure to COVID-19; Z79.899 Other long term (current) drug therapy
CPT/HCPCS: 36415; 71045; 73630; 76705; 80053; 80307; 81001; 82550; 82607; 82746; 83605; 83735; 85025; 87040; 87633; 87637; 87651; 99285; J0131; J0696; J1644; J2405; J2560; J3360; J3411; J3480; S9485

== ENCOUNTER → 2024-09-22 23:01 | Outpatient (BNV) | payer MEDICAID, SELFPAY | PROVIDERS: Emergency Provider Emergency Medicine; Visit Provider Radiology Diagnostic Radiology | DX: R50.9 Fever, unspecified (principal) | CPT/HCPCS: 71045 ==

== ENCOUNTER 2024-09-23 02:59 | Outpatient (BNV) | payer MEDICAID, SELFPAY | END 2024-09-24 11:20 | PROVIDERS: Admitting Provider Physician Assistant; Emergency Provider Emergency Medicine; Visit Provider Radiology Diagnostic Radiology | DX: M20.12 Hallux valgus (acquired), left foot (principal) | CPT/HCPCS: 73630 ==

== ENCOUNTER 2024-09-23 02:59 | Outpatient (BNV) | payer MEDICAID, SELFPAY | END 2024-09-23 07:39 | PROVIDERS: Admitting Provider Physician Assistant; Emergency Provider Emergency Medicine; Visit Provider Radiology Vascular & Interventional Radiology | DX: R10.11 Right upper quadrant pain (principal); R74.01 Elevation of levels of liver transaminase levels | CPT/HCPCS: 76705 ==

== ENCOUNTER → 2024-09-23 02:59 | Outpatient (BNV) | payer MEDICAID, SELFPAY | PROVIDERS: Admitting Provider Physician Assistant; Emergency Provider Emergency Medicine; Visit Provider Physician Assistant | DX: F10.930 Alcohol use, unspecified with withdrawal, uncomplicated (principal); F19.20 Other psychoactive substance dependence, uncomplicated; R45.851 Suicidal ideations | CPT/HCPCS: 99223; 99232; 99238 ==

== ENCOUNTER → 2024-09-23 02:59 | Outpatient (BNV) | payer OTHER, SELFPAY | PROVIDERS: Admitting Provider Physician Assistant; Emergency Provider Emergency Medicine; PCP Internal Medicine; Visit Provider Nurse Practitioner Psychiatric/Mental Health | DX: F11.90 Opioid use, unspecified, uncomplicated (principal); F10.20 Alcohol dependence, uncomplicated | CPT/HCPCS: 99221 ==

== ENCOUNTER → 2024-09-23 02:59 | Outpatient (BNV) | payer MEDICAID, SELFPAY | PROVIDERS: Admitting Provider Physician Assistant; Emergency Provider Emergency Medicine; PCP Internal Medicine; Visit Provider Internal Medicine | DX: R50.9 Fever, unspecified (principal); R45.851 Suicidal ideations; F11.90 Opioid use, unspecified, uncomplicated | CPT/HCPCS: 99232 ==

== ENCOUNTER 2024-09-25 19:14 | Inpatient (IN) | payer OTHER, SELFPAY ==
[2024-09-25 20:30] VITALS: BP 141/77; PULSE 66; RESP 16; TEMP 36.9; O2SAT 96
[2024-09-26 04:05] VITALS: BP 97/54; PULSE 66; RESP 14; TEMP 36.6; O2SAT 94
--- NOTE | 2024-09-26 04:57 | PC.ADMIT ---
Abiodun is a white Nigerien speaking 49 year old male that was admitted from [facility] access [facility] on a CV. Patient originally came to the hospital because he left his rehab placement after 4 months and began using alcohol and poly-substances. Patient became suicidal and then began to feel sick and he felt the drugs he was taking were killing him. Patient had a plan to hurt himself with a pair of scissors but fell down a hill and lost them in the process. Patient was found on the sidewalk at the bottom of the hill and brought to [facility] [place] [facility]. Patient had a fever and placed on a medical floor due to possible sepsis. Patient was tired and sedated on arrival to the unit and requested to go to bed. Patient was placed on a CIWA. Patient scored a 22 and was medicated with Ativan PO prn. Patient reported foot pain when on the medical floor and an x-ray was done. The x-ray showed chronic erosion of the right foot 5th metatarsal and marginal osteopenia of the right foot 3rd and 4th metatarsals. Patient reported pain 9/10. Patient was utilizing a cane to walk, given a walker on the unit and placed on 5 minute checks. Patient still reporting suicidal ideation but stated he does not have an active plan on the unit. Anxiety and depression are high. Patient did not report any active AH/VH. On skin assessment, patient has a red rash on his trunk and groin area. Patient also has a 2 inch size blister on his inner right foot.
[2024-09-26 07:49] VITALS: BP 128/81; PULSE 68; RESP 16; TEMP 36.4; O2SAT 98
--- NOTE | 2024-09-26 09:01 | HO.PSYADMNOT ---
HPI Date of Service: 09/26/24 Chief Complaint: SI with plan Sources of Information: patient interviewed, chart reviewed and crisis/core team assessment reviewed HPI Subjective Notes: Lambert Warning and Conditional Voluntary Narrative: Patient is a 49-year-old male with history of MDD, PTSD, opiate use disorder, cocaine use disorder and alcohol use disorder who presented to ER via ambulance after calling on himself due to suicidal ideation secondary to relapsing on substances. Per crisis report, patient was discharged from on 05/29/2024 on a section 35. Patient has a history of polysubstance use and multiple suicide attempts. Patient reports following the section 35 treatment he went to a [facility] for a total of 4 months of recovery and left the program 2 weeks ago. Patient stated, like an idiot, I walked out . Patient reported receiving a check for $5000 which influenced him and now regrets his decision. He reports for the last 2 weeks he has been using drugs and alcohol daily and becoming increasingly depressed and hopeless. Patient stated, I deserve this and everything else that happened to me . Patient reports he had some scissors which he intended to use to commit suicide but was impaired and fell down a hill and lost this the scissors. Patient reports poor sleep and appetite for the last 2 weeks. He reports since the of his mother earlier this year, he has felt more lost and alone. History of multiple inpatient psychiatric hospitalizations. During admission assessment, patient presents alert and oriented x3. Calm and cooperative. Drowsy throughout assessment. Closing eyes at times. Difficult to understand due to low and mumbled speech at times. Patient reports feeling depressed and suicidal; patient stated, I'm a scum bag and junkie. I was sober for 5 months and then relapsed. I'm hoping to get sober again . Patient reports he does not recall how long he has not been medication compliant. Patient reports he has been drinking 2 quarts of alcohol daily and using 10-20 Klonopin daily, along with 5 bundles of IV heroin. Patient reports he does not have outpatient psychiatric providers at this time. Past Psychiatric History: Inpt: several past psychiatric admission. Patient reports he does not have outpatient psychiatric providers at this time. Hx of suicide attempts: several OD attempts, last one was in Oct 2023. 15 attempts pt reports Past medication trials: lexapro, adderall, propanolol- he has overdosed on these by history along with gabapentin Medical Evaluation Reviewed: Yes [facility] Medical History (Updated 09/26/24 @ 13:01 by Deanne Real NP) Cocaine use disorder, moderate, dependence Grief reaction Dysphagia History of suicidal ideation Opioid use disorder Mood disorder Family History: Father-addiction Social History: He is . He has a 17 year-old daughter with whom he reports has contact. No other family member reported. Born in [place]. Raised in [place] by his father Five siblings, estranged BA from [place], [place] for 7 years, , one daughter, age 17 Substance History: U tox positive for opiates, buprenorphine, fentanyl and cocaine. Trauma History: sexual/emotional/physical/verbal, details not provided Traumatic upbringing and childhood pt reports Diagnostics Vital Signs (24Hr): Vital Signs - 24 hr 09/25/24 20:30 09/26/24 04:05 09/26/24 07:49 Temperature 98.5 F 97.9 F 97.6 F Pulse Rate 66 66 68 Respiratory Rate 16 14 16 Blood Pressure 141/77 H 97/54 L 128/81 Pulse Oximetry 96 94 98 Oxygen Delivery Method Room Air Room Air Room Air Meds/Allergies Meds Home Medications ?Medication ?Instructions ?Recorded ?Confirmed ?Type buprenorphine 8 mg-naloxone 2 mg 1 film sublingual BID 05/22/24 09/25/24 History sublingual film (Suboxone) cyanocobalamin (vitamin B-12) 1,000 mcg PO DAILY 05/22/24 09/25/24 History 1,000 mcg tablet quetiapine 200 mg tablet 200 mg PO BEDTIME 05/22/24 09/25/24 History atomoxetine 40 mg capsule 40 mg PO DAILY 09/23/24 09/25/24 History baclofen 5 mg tablet 5 mg PO TID PRN muscle spasms 09/23/24 09/25/24 History clonidine HCl 0.1 mg tablet 0.1 mg PO TID 09/23/24 09/25/24 History diphenhydramine HCl 50 mg capsule 50 mg PO BEDTIME 09/23/24 09/25/24 History (Banophen) folic acid 1 mg tablet 1 mg PO DAILY 09/23/24 09/25/24 History lamotrigine 100 mg tablet 100 mg PO DAILY 09/23/24 09/25/24 History linaclotide 145 mcg capsule 145 mcg PO DAILY 09/23/24 09/25/24 History (Linzess) lisdexamfetamine 40 mg capsule 40 mg PO DAILY 09/23/24 09/25/24 History (Vyvanse) propranolol 20 mg tablet 20 mg PO BID 09/23/24 09/25/24 History docusate sodium 100 mg capsule 100 mg PO BID 09/25/24 09/25/24 History multivitamin-ferrous 1 tab PO DAILY 09/25/24 09/25/24 History fumarate-folic acid 18 mg-400 mcg tablet (Tab-A-See Multivitamin w-iron) nicotine (polacrilex) 4 mg buccal 4 mg PO Q2H 09/25/24 09/25/24 History lozenge omeprazole 20 mg capsule,delayed 20 mg PO BID 09/25/24 History release omeprazole 20 mg capsule,delayed 20 mg PO BID 09/25/24 09/25/24 History release sucralfate 1 gram tablet 1 g PO BID 09/25/24 09/25/24 History Allergies Allergies Allergy/AdvReac Type Severity Reaction Status Date / Time No Known Allergies Allergy Verified 09/22/24 23:07 Mental Status Exam Mental Status Exam Patient Appearance: Disheveled Patient Orientation: Person, Place, Time and Situation Level of Consciousness: Drowsy Patient Behavior: Guarded, Cooperative and Poor Eye Contact Mood Description: Depressed Affect Description: Depressed Ability to Follow Directions: Good Speech Pattern: Soft-Spoken and Mumbled Memory Description: Intact Hallucinations: None Delusions: Not Present Thought Process: Intact and Goal Oriented Thought Content: positive for Intact and positive for Suicidal Ideation Assessment & Plan Assessment & Plan (1) MDD (major depressive disorder), recurrent episode, severe: Status: Acute Code(s): F33.2 - Major depressive disorder, recurrent severe without psychotic features (2) PTSD (post-traumatic stress disorder): Status: Acute Code(s): F43.10 - Post-traumatic stress disorder, unspecified (3) Opioid use disorder: Status: Acute Code(s): F11.90 - Opioid use, unspecified, uncomplicated (4) Alcohol use disorder, moderate, dependence: Status: Acute Code(s): F10.20 - Alcohol dependence, uncomplicated (5) Cocaine use disorder, moderate, dependence: Status: Acute Code(s): F14.20 - Cocaine dependence, uncomplicated (6) Benzodiazepine abuse: Status: Acute Code(s): F13.10 - Sedative, hypnotic or anxiolytic abuse, uncomplicated Plan Patient is a 49-year-old male with history of MDD, PTSD, opiate use disorder, cocaine use disorder and alcohol use disorder who presented to ER via ambulance after calling on himself due to suicidal ideation secondary to relapsing on substances. Plan: CV 15 minute safety checks Continue home medications CIWA protocol Referral to outpatient psychiatric providers Referral to substance abuse program Encourage groups Discharge planning Patient educated on: diagnosis and medication risk/benefits Reason for continued inpatient stay Substantial Risk for: harm to self and med/psych decompensation Statement Statement: I have reviewed the history and physical and performed a pertinent examination on my patient. No changes have occurred unless specified. If the History and Physical was not performed prior to admission, the Hospitalist's service will be consulted for completing the admission physical. Time Spent With Patient Time: Total time managing care of this patient today _60___ minutes.
[2024-09-26 12:55] VITALS: BMI 28.8
--- NOTE | 2024-09-26 13:01 | MHC.CLN ---
CONSULT HEIGHT AND WEIGHT FROM MED/TELE ADM 09/23. DIET=REGULAR. MOST RECENT PO INTAKE APPEARS TO BE GOOD. REVIEW OF WEIGHT HX SHOWS NO SIGNIFICANT WEIGHT LOSS X 5 MONTHS. SKIN WITH BLISTER TO RIGHT INNER FOOT. NO ADDITIONAL NUTRITION INTERVENTIONS AT THIS TIME.
[2024-09-26 14:40] VITALS: BP 122/69; PULSE 64
[2024-09-26] MEDS: Amphetamine Mixed Salts 20 MG TABLET PO (14:44)
[2024-09-26 21:10] VITALS: BP 115/63; PULSE 72; RESP 18; TEMP 36.9; O2SAT 98
[2024-09-27] VITALS (9 sets, daily range): BP systolic 116–140; BP diastolic 61–76; PULSE 60–68; RESP 16–18; TEMP 36.2–36.9; O2SAT 97–100
--- NOTE | 2024-09-27 08:54 | P.PNPSI_ITS ---
Subjective Subjective Date of Service: 09/27/24 Reason For Visit: SI with plan Subjective Notes: Conditional Voluntary Interim History: Continues sleeping most of day. He reports not feeling well d/t withdrawal. CIWA score decreasing. He reports suicidal ideation with no plan. denies HI/VH/AH. Will start Ativan taper tomorrow. Continue current tx plan. Medication Compliance: Yes Side effects from medications: No Attending Groups: No Mental Status Exam Mental Status Exam Narrative: Pt is alert and oriented; behavior is cooperative and calm, guarded; dressed in hospital attire; mood is described as depressed ; eye contact appropriate; Speech is normal rate, low volume and not pressured, mumbled; thought process is organized; Thought content is on tx; denies HI/VH/AH. +SI with no plan. Diagnostics Vital Signs (24Hr): Vital Signs - 24 hr 09/26/24 14:40 09/26/24 21:10 09/27/24 08:00 Temperature 98.5 F 98.4 F Pulse Rate 64 72 68 Respiratory Rate 18 16 Blood Pressure 122/69 115/63 129/64 Pulse Oximetry 98 97 Oxygen Delivery Method Room Air Room Air BMI result Body Mass Index 28.8 Medications Medications Current Medications Acetaminophen (Acetaminophen 325 Mg Tablet) 650 mg PO Q6H PRN PRN Reason: Headache/Pain, Scale 1-10 Last Admin: 09/26/24 00:06 Dose: 650 mg Al Hydroxide/Mg Hydroxide (Magnesium Hydrox/Alum Hydrox 30 Ml Oral.Susp) 30 ml PO Q6H PRN PRN Reason: Heartburn/Nausea Amphetamine/Dextroamphetamine (Amphetamine Mixed Salts 20 Mg Tablet) 20 mg PO 1400,1700 [facility] Last Admin: 09/26/24 17:46 Dose: Not Given Baclofen (Baclofen 10 Mg Tablet) 5 mg PO TID PRN PRN Reason: muscle spasms Last Admin: 09/26/24 00:07 Dose: 5 mg Buprenorphine/Naloxone (Buprenorphine/Naloxone 8/2 Mg Film) 1 film SUBLINGUAL BID [facility] Last Admin: 09/26/24 21:29 Dose: 1 film Clonidine HCl (Clonidine Hcl 0.1 Mg Tablet) 0.1 mg PO TID [facility]; Protocol Last Admin: 09/26/24 21:29 Dose: 0.1 mg Cyanocobalamin (Cyanocobalamin (Vitamin B-12) 1,000 Mcg Tablet) 1,000 mcg PO DAILY [facility] Last Admin: 09/26/24 08:47 Dose: 1,000 mcg Docusate Sodium (Docusate Sodium 100 Mg Capsule) 100 mg PO BID [facility] Last Admin: 09/26/24 21:29 Dose: 100 mg Escitalopram Oxalate (Escitalopram Oxalate 20 Mg Tablet) 20 mg PO DAILY [facility] Last Admin: 09/26/24 08:47 Dose: 20 mg Folic Acid (Folic Acid 1 Mg Tablet) 1 mg PO DAILY [facility] Last Admin: 09/26/24 08:47 Dose: 1 mg Hydroxyzine HCl (Hydroxyzine Hcl 25 Mg Tablet) 25 mg PO Q6H PRN PRN Reason: mild anxiety Lamotrigine (Lamotrigine 100 Mg Tablet) 100 mg PO DAILY [facility] Last Admin: 09/26/24 08:47 Dose: 100 mg Lorazepam (Lorazepam 1 Mg Tablet) 1 mg PO Q2H PRN PRN Reason: CIWA 8-11 Last Admin: 09/26/24 17:49 Dose: 1 mg Lorazepam (Lorazepam 1 Mg Tablet) 2 mg PO Q2H PRN PRN Reason: CIWA 12-15 Last Admin: 09/27/24 04:07 Dose: 2 mg Lorazepam (Lorazepam 1 Mg Tablet) 3 mg PO Q2H PRN PRN Reason: CIWA > 15, and call Last Admin: 09/26/24 21:29 Dose: 3 mg Magnesium Hydroxide (Milk Of Magnesia 30 Ml Oral.Susp) 30 ml PO DAILY PRN PRN Reason: Constipation Multivitamins/Vitamin C (Multivitamin Tablet) 1 tab PO DAILY [facility] Last Admin: 09/26/24 08:47 Dose: 1 tab Nicotine Polacrilex (Nicotine Polacrilex 2 Mg Gum) 2 mg BUCCAL Q2H PRN PRN Reason: Nicotine Cravings Non-Formulary Medication (Linaclotide [Linzess]) 145 mcg PO DAILY [facility] Non-Formulary Medication (Atomoxetine) 40 mg PO DAILY [facility] Olanzapine (Olanzapine 5 Mg Tablet) 5 mg PO BID PRN PRN Reason: agitation Omeprazole (Omeprazole 20 Mg Capsule.Dr) 20 mg PO BID@0630,1630 [facility] Last Admin: 09/27/24 06:40 Dose: 20 mg Ondansetron HCl (Ondansetron Odt 8 Mg Tab.Rapdis) 8 mg TRANSLINGU Q8H PRN PRN Reason: Nausea and Vomiting Last Admin: 09/26/24 00:05 Dose: 8 mg Propranolol HCl (Propranolol Hcl 20 Mg Tablet) 20 mg PO BID [facility]; Protocol Last Admin: 09/26/24 21:28 Dose: 20 mg Quetiapine Fumarate (Quetiapine Fumarate 200 Mg Tablet) 200 mg PO BEDTIME [facility] Last Admin: 09/26/24 21:29 Dose: 200 mg Sucralfate (Sucralfate 1 Gm Tablet) 1 gm PO BID [facility] Last Admin: 09/26/24 21:29 Dose: 1 gm Thiamine HCl (Thiamine Hcl 100 Mg Tablet) 100 mg PO DAILY [facility] Last Admin: 09/26/24 08:47 Dose: 100 mg Trazodone HCl (Trazodone Hcl 50 Mg Tablet) 50 mg PO BEDTIME MRX1 PRN PRN Reason: Insomnia Allergies Allergies Allergy/AdvReac Type Severity Reaction Status Date / Time No Known Allergies Allergy Verified 09/22/24 23:07 Assessment & Plan Assessment & Plan (1) MDD (major depressive disorder), recurrent episode, severe: Status: Acute Code(s): F33.2 - Major depressive disorder, recurrent severe without psychotic features (2) PTSD (post-traumatic stress disorder): Status: Acute Code(s): F43.10 - Post-traumatic stress disorder, unspecified (3) Opioid use disorder: Status: Acute Code(s): F11.90 - Opioid use, unspecified, uncomplicated (4) Alcohol use disorder, moderate, dependence: Status: Acute Code(s): F10.20 - Alcohol dependence, uncomplicated (5) Cocaine use disorder, moderate, dependence: Status: Acute Code(s): F14.20 - Cocaine dependence, uncomplicated (6) Benzodiazepine abuse: Status: Acute Code(s): F13.10 - Sedative, hypnotic or anxiolytic abuse, uncomplicated Plan Patient is a 49-year-old male with history of MDD, PTSD, opiate use disorder, cocaine use disorder and alcohol use disorder who presented to ER via ambulance after calling on himself due to suicidal ideation secondary to relapsing on substances. Plan: CV 15 minute safety checks Continue home medications CIWA protocol Referral to outpatient psychiatric providers Referral to substance abuse program Encourage groups Discharge planning 09/27: Continues sleeping most of day. He reports not feeling well d/t withdrawal. CIWA score decreasing. He reports suicidal ideation with no plan. denies HI/VH/AH. Will start Ativan taper tomorrow. Continue current tx plan. Patient educated on: diagnosis and medication risk/benefits Reason for continued inpatient stay Substantial Risk for: harm to self and med/psych decompensation Time Spent With Patient Time: Total time managing care of this patient today _20___ minutes.
--- NOTE | 2024-09-27 10:25 | PC.NURSE ---
Pt difficult to rouse for assessment, sedate. When finally awakening, pt scoring 6-7 on CIWA, angry he is not receiving and ativan at this time stating you guys don't even know how fucking sick I am, this is unbelievable, I could have a seizure . Pt with no noticeable tremor at this time, VSS, NAD, no diaphoresis noted. Ambulating with slow shuffling gait around his bed to eat some of his breakfast. Pt cautioned to use his walker for ambulation at this time, took his medications with no difficulty.
[2024-09-28 08:00] VITALS: BP 130/65; PULSE 69; RESP 16; TEMP 36.4; O2SAT 98
[2024-09-28 09:19] VITALS: BP 130/65
[2024-09-28 09:22] VITALS: BP 130/65; PULSE 69
--- NOTE | 2024-09-28 10:28 | P.PNPSI_ITS ---
Subjective Subjective Date of Service: 09/28/24 Reason For Visit: SI with plan Subjective Notes: Conditional Voluntary Interim History: Continues sleeping most of day. He continues to report not feeling well d/t withdrawal. Placed on Ativan taper; pt declined AM medications. focused on obtaining benzodiazapines. PAULETTE YUSUF. pt stated, I'm laying in bed because I don't feel good . Pt reports he would like to go to a substance abuse program; encouraged to attend groups. denies SI/HI/VH/AH. Medication Compliance: Intermittent Side effects from medications: No Attending Groups: No Mental Status Exam Mental Status Exam Narrative: Pt is alert and oriented; behavior is cooperative and calm, guarded; dressed in hospital attire; mood is described as depressed ; eye contact appropriate; Speech is normal rate, low volume and not pressured, mumbled; thought process is organized; Thought content is on tx; denies SI/HI/VH/AH. Diagnostics Vital Signs (24Hr): Vital Signs - 24 hr 09/27/24 12:45 09/27/24 16:40 09/27/24 17:24 Temperature 97.1 F Pulse Rate 60 60 Respiratory Rate 18 Blood Pressure 131/64 116/69 116/69 Pulse Oximetry 100 Oxygen Delivery Method Room Air 09/27/24 20:00 09/27/24 20:35 09/27/24 20:35 Temperature 97.6 F Pulse Rate 65 65 Respiratory Rate 16 Blood Pressure 140/61 H 140/61 H 140/61 H Pulse Oximetry 98 Oxygen Delivery Method Room Air 09/28/24 08:00 09/28/24 09:19 09/28/24 09:22 Temperature 97.6 F Pulse Rate 69 69 Respiratory Rate 16 Blood Pressure 130/65 130/65 130/65 Pulse Oximetry 98 Oxygen Delivery Method Room Air BMI result Body Mass Index 28.8 Medications Medications Current Medications Acetaminophen (Acetaminophen 325 Mg Tablet) 650 mg PO Q6H PRN PRN Reason: Headache/Pain, Scale 1-10 Last Admin: 09/26/24 00:06 Dose: 650 mg Al Hydroxide/Mg Hydroxide (Magnesium Hydrox/Alum Hydrox 30 Ml Oral.Susp) 30 ml PO Q6H PRN PRN Reason: Heartburn/Nausea Amphetamine/Dextroamphetamine (Amphetamine Mixed Salts 20 Mg Tablet) 20 mg PO 1400,1700 [facility]IANN Last Admin: 09/27/24 17:29 Dose: Not Given Baclofen (Baclofen 10 Mg Tablet) 5 mg PO TID PRN PRN Reason: muscle spasms Last Admin: 09/26/24 00:07 Dose: 5 mg Buprenorphine/Naloxone (Buprenorphine/Naloxone 8/2 Mg Film) 1 film SUBLINGUAL BID [facility] Last Admin: 09/28/24 09:18 Dose: 1 film Clonidine HCl (Clonidine Hcl 0.1 Mg Tablet) 0.1 mg PO TID [facility]; Protocol Last Admin: 09/28/24 09:19 Dose: Not Given Cyanocobalamin (Cyanocobalamin (Vitamin B-12) 1,000 Mcg Tablet) 1,000 mcg PO DAILY [facility] Last Admin: 09/28/24 09:19 Dose: Not Given Docusate Sodium (Docusate Sodium 100 Mg Capsule) 100 mg PO BID [facility] Last Admin: 09/28/24 09:19 Dose: Not Given Escitalopram Oxalate (Escitalopram Oxalate 20 Mg Tablet) 20 mg PO DAILY [facility] Last Admin: 09/28/24 09:19 Dose: Not Given Folic Acid (Folic Acid 1 Mg Tablet) 1 mg PO DAILY [facility] Last Admin: 09/28/24 09:19 Dose: Not Given Hydroxyzine HCl (Hydroxyzine Hcl 25 Mg Tablet) 25 mg PO Q6H PRN PRN Reason: mild anxiety Lamotrigine (Lamotrigine 100 Mg Tablet) 100 mg PO DAILY [facility] Last Admin: 09/28/24 09:22 Dose: Not Given Lorazepam (Lorazepam 1 Mg Tablet) 1 mg PO Q2H PRN PRN Reason: CIWA 8-11 Last Admin: 09/27/24 20:42 Dose: 1 mg Lorazepam (Lorazepam 1 Mg Tablet) 2 mg PO Q2H PRN PRN Reason: CIWA 12-15 Last Admin: 09/27/24 04:07 Dose: 2 mg Lorazepam (Lorazepam 1 Mg Tablet) 3 mg PO Q2H PRN PRN Reason: CIWA > 15, and call Last Admin: 09/26/24 21:29 Dose: 3 mg Magnesium Hydroxide (Milk Of Magnesia 30 Ml Oral.Susp) 30 ml PO DAILY PRN PRN Reason: Constipation Multivitamins/Vitamin C (Multivitamin Tablet) 1 tab PO DAILY [facility] Last Admin: 09/28/24 09:22 Dose: Not Given Nicotine Polacrilex (Nicotine Polacrilex 2 Mg Gum) 2 mg BUCCAL Q2H PRN PRN Reason: Nicotine Cravings Non-Formulary Medication (Linaclotide [Linzess]) 145 mcg PO DAILY [facility] Non-Formulary Medication (Atomoxetine) 40 mg PO DAILY [facility] Olanzapine (Olanzapine 5 Mg Tablet) 5 mg PO BID PRN PRN Reason: agitation Omeprazole (Omeprazole 20 Mg Capsule.Dr) 20 mg PO BID@0630,1630 [facility] Last Admin: 09/28/24 06:25 Dose: 20 mg Ondansetron HCl (Ondansetron Odt 8 Mg Tab.Rapdis) 8 mg TRANSLINGU Q8H PRN PRN Reason: Nausea and Vomiting Last Admin: 09/26/24 00:05 Dose: 8 mg Propranolol HCl (Propranolol Hcl 20 Mg Tablet) 20 mg PO BID [facility]; Protocol Last Admin: 09/28/24 09:22 Dose: Not Given Quetiapine Fumarate (Quetiapine Fumarate 200 Mg Tablet) 200 mg PO BEDTIME [facility] Last Admin: 09/27/24 20:35 Dose: 200 mg Sucralfate (Sucralfate 1 Gm Tablet) 1 gm PO BID [facility] Last Admin: 09/28/24 09:23 Dose: Not Given Thiamine HCl (Thiamine Hcl 100 Mg Tablet) 100 mg PO DAILY [facility] Last Admin: 09/28/24 09:23 Dose: Not Given Trazodone HCl (Trazodone Hcl 50 Mg Tablet) 50 mg PO BEDTIME MRX1 PRN PRN Reason: Insomnia Allergies Allergies Allergy/AdvReac Type Severity Reaction Status Date / Time No Known Allergies Allergy Verified 09/22/24 23:07 Assessment & Plan Assessment & Plan (1) MDD (major depressive disorder), recurrent episode, severe: Status: Acute Code(s): F33.2 - Major depressive disorder, recurrent severe without psychotic features (2) PTSD (post-traumatic stress disorder): Status: Acute Code(s): F43.10 - Post-traumatic stress disorder, unspecified (3) Opioid use disorder: Status: Acute Code(s): F11.90 - Opioid use, unspecified, uncomplicated (4) Alcohol use disorder, moderate, dependence: Status: Acute Code(s): F10.20 - Alcohol dependence, uncomplicated (5) Cocaine use disorder, moderate, dependence: Status: Acute Code(s): F14.20 - Cocaine dependence, uncomplicated (6) Benzodiazepine abuse: Status: Acute Code(s): F13.10 - Sedative, hypnotic or anxiolytic abuse, uncomplicated Plan Patient is a 49-year-old male with history of MDD, PTSD, opiate use disorder, cocaine use disorder and alcohol use disorder who presented to ER via ambulance after calling on himself due to suicidal ideation secondary to relapsing on substances. Plan: CV 15 minute safety checks Continue home medications CIWA protocol Referral to outpatient psychiatric providers Referral to substance abuse program Encourage groups Discharge planning 09/27: Continues sleeping most of day. He reports not feeling well d/t withdrawal. CIWA score decreasing. He reports suicidal ideation with no plan. denies HI/VH/AH. Will start Ativan taper tomorrow. Continue current tx plan. 09/28: Continues sleeping most of day. He continues to report not feeling well d/t withdrawal. Placed on Ativan taper; pt declined AM medications. focused on obtaining benzodiazapines. DC CIWA. pt stated, I'm laying in bed because I don't feel good . Pt reports he would like to go to a substance abuse program; encouraged to attend groups. denies SI/HI/VH/AH. Patient educated on: diagnosis, medication risk/benefits and therapeutic strategies Reason for continued inpatient stay Substantial Risk for: med/psych decompensation Time Spent With Patient Time: Total time managing care of this patient today __20__ minutes.
[2024-09-28] MEDS: Amphetamine Mixed Salts 20 MG TABLET PO ×2 (13:37→16:03)
[2024-09-28 14:48] VITALS: BP 147/84
[2024-09-28 20:00] VITALS: BP 138/81; PULSE 100; RESP 16; TEMP 36.3; O2SAT 96
[2024-09-29 07:20] VITALS: BP 123/70; PULSE 70; TEMP 36.8; O2SAT 99
[2024-09-29] MEDS: Amphetamine Mixed Salts 20 MG TABLET PO ×2 (10:14→14:35)
--- NOTE | 2024-09-29 10:15 | HO.PSYCHPN ---
Subjective Subjective Date of Service: 09/29/24 Reason For Visit: SI with plan Subjective Notes: Conditional Voluntary Interim History: Patient was seen and discussed in rounds today. Records and plans were reviewed. He states that he used to be on Vyvanse 60 mg in the morning and another Adderall 20 mg twice more. I will have the nurse verify this but in the meanwhile since he is not getting anything in the morning I changed his Adderall regimen to 20 mg b.i.d., morning and mid day and will verify and possibly may add another low dose in the afternoon. No SI. No other complaints. I did verify with the pharmacy and he has been on Vyvanse 40 mg in the morning and Adderall 20 mg p.r.n. up to 2 times more. Review of Systems Review of Systems Yes all other systems are reviewed and are negative Mental Status Exam Mental Status Exam Narrative: In today's visit he is alert, oriented and pleasant. Normal speech. Good eye contact. Affect is appropriate and constricted. No signs of psychosis. No SI. Cognitively is intact. Diagnostics Vital Signs (24Hr): Vital Signs - 24 hr 09/28/24 14:48 09/28/24 20:00 09/29/24 07:20 Temperature 97.3 F 98.2 F Pulse Rate 100 70 Respiratory Rate 16 Blood Pressure 147/84 H 138/81 123/70 Pulse Oximetry 96 99 Oxygen Delivery Method Room Air Room Air BMI result Body Mass Index 28.8 Medications Medications Current Medications Acetaminophen (Acetaminophen 325 Mg Tablet) 650 mg PO Q6H PRN PRN Reason: Headache/Pain, Scale 1-10 Last Admin: 09/26/24 00:06 Dose: 650 mg Al Hydroxide/Mg Hydroxide (Magnesium Hydrox/Alum Hydrox 30 Ml Oral.Susp) 30 ml PO Q6H PRN PRN Reason: Heartburn/Nausea Amphetamine/Dextroamphetamine (Amphetamine Mixed Salts 20 Mg Tablet) 20 mg PO BID [facility] Buprenorphine/Naloxone (Buprenorphine/Naloxone 8/2 Mg Film) 1 film SUBLINGUAL BID [facility] Last Admin: 09/29/24 09:04 Dose: 1 film Clonidine HCl (Clonidine Hcl 0.1 Mg Tablet) 0.1 mg PO TID [facility]; Protocol Last Admin: 09/29/24 09:05 Dose: 0.1 mg Cyanocobalamin (Cyanocobalamin (Vitamin B-12) 1,000 Mcg Tablet) 1,000 mcg PO DAILY [facility] Last Admin: 09/29/24 09:05 Dose: 1,000 mcg Docusate Sodium (Docusate Sodium 100 Mg Capsule) 100 mg PO BID [facility] Last Admin: 09/29/24 09:05 Dose: 100 mg Escitalopram Oxalate (Escitalopram Oxalate 20 Mg Tablet) 20 mg PO DAILY [facility] Last Admin: 09/29/24 09:05 Dose: 20 mg Hydroxyzine HCl (Hydroxyzine Hcl 25 Mg Tablet) 25 mg PO Q6H PRN PRN Reason: mild anxiety Lamotrigine (Lamotrigine 100 Mg Tablet) 100 mg PO DAILY [facility] Last Admin: 09/29/24 09:05 Dose: 100 mg Lorazepam (Lorazepam 1 Mg Tablet) 1 mg PO TID [facility] Stop: 09/29/24 15:00 Last Admin: 09/29/24 09:04 Dose: 1 mg Lorazepam (Lorazepam 1 Mg Tablet) 1 mg PO BID [facility] Stop: 10/01/24 09:00 Lorazepam (Lorazepam 0.5 Mg Tablet) 0.5 mg PO BID [facility] Stop: 10/03/24 09:00 Magnesium Hydroxide (Milk Of Magnesia 30 Ml Oral.Susp) 30 ml PO DAILY PRN PRN Reason: Constipation Nicotine Polacrilex (Nicotine Polacrilex 2 Mg Gum) 2 mg BUCCAL Q2H PRN PRN Reason: Nicotine Cravings Non-Formulary Medication (Linaclotide [Linzess]) 145 mcg PO DAILY [facility] Non-Formulary Medication (Atomoxetine) 40 mg PO DAILY [facility] Olanzapine (Olanzapine 5 Mg Tablet) 5 mg PO BID PRN PRN Reason: agitation Omeprazole (Omeprazole 20 Mg Capsule.Dr) 20 mg PO BID@0630,1630 [facility] Last Admin: 09/29/24 06:39 Dose: 20 mg Ondansetron HCl (Ondansetron Odt 8 Mg Tab.Rapdis) 8 mg TRANSLINGU Q8H PRN PRN Reason: Nausea and Vomiting Last Admin: 09/28/24 14:51 Dose: 8 mg Propranolol HCl (Propranolol Hcl 20 Mg Tablet) 20 mg PO BID [facility]; Protocol Last Admin: 09/29/24 09:05 Dose: 20 mg Quetiapine Fumarate (Quetiapine Fumarate 200 Mg Tablet) 200 mg PO BEDTIME [facility] Last Admin: 09/28/24 20:07 Dose: 200 mg Sucralfate (Sucralfate 1 Gm Tablet) 1 gm PO BID [facility] Last Admin: 09/29/24 09:05 Dose: 1 gm Trazodone HCl (Trazodone Hcl 50 Mg Tablet) 50 mg PO BEDTIME MRX1 PRN PRN Reason: Insomnia Allergies Allergies Allergy/AdvReac Type Severity Reaction Status Date / Time No Known Allergies Allergy Verified 09/22/24 23:07 Assessment & Plan Assessment & Plan (1) MDD (major depressive disorder), recurrent episode, severe: Status: Acute Code(s): F33.2 - Major depressive disorder, recurrent severe without psychotic features (2) PTSD (post-traumatic stress disorder): Status: Acute Code(s): F43.10 - Post-traumatic stress disorder, unspecified (3) Opioid use disorder: Status: Acute Code(s): F11.90 - Opioid use, unspecified, uncomplicated (4) Alcohol use disorder, moderate, dependence: Status: Acute Code(s): F10.20 - Alcohol dependence, uncomplicated (5) Cocaine use disorder, moderate, dependence: Status: Acute Code(s): F14.20 - Cocaine dependence, uncomplicated (6) Benzodiazepine abuse: Status: Acute Code(s): F13.10 - Sedative, hypnotic or anxiolytic abuse, uncomplicated Plan Patient is a 49-year-old male with history of MDD, PTSD, opiate use disorder, cocaine use disorder and alcohol use disorder who presented to ER via ambulance after calling on himself due to suicidal ideation secondary to relapsing on substances. Plan: CV 15 minute safety checks Continue home medications CIWA protocol Referral to outpatient psychiatric providers Referral to substance abuse program Encourage groups Discharge planning 09/27: Continues sleeping most of day. He reports not feeling well d/t withdrawal. CIWA score decreasing. He reports suicidal ideation with no plan. denies HI/VH/AH. Will start Ativan taper tomorrow. Continue current tx plan. 09/28: Continues sleeping most of day. He continues to report not feeling well d/t withdrawal. Placed on Ativan taper; pt declined AM medications. focused on obtaining benzodiazapines. DC CIWA. pt stated, I'm laying in bed because I don't feel good . Pt reports he would like to go to a substance abuse program; encouraged to attend groups. denies SI/HI/VH/AH. 09/29: Continue current regimen and plans. Adderall 20 mg b.i.d. Patient educated on: medication risk/benefits Reason for continued inpatient stay Substantial Risk for: med/psych decompensation Time Spent With Patient Time: Total time managing care of this patient today ____ minutes.
--- NOTE | 2024-09-29 16:12 | MHC.RECOVRN ---
Met with pt. in dining area following referral received for pt's JAE. Upon my arrival pt. was sitting in common area playing cards with others. Pt alert and oriented, pleasant and cooperative. Pt reports that up until approx 2 weeks ago he was in a TSS. He, at that point had been sober x 4 months. His mother and he received a large amount of money at which time he left his TSS and started using large amounts of BZO's, ETOH, crack and fentanyl. He did this x 2 weeks and then was admitted to [facility] for mental health stabilization. Pt is back on his suboxone which he reports has been successful at managing his OUD. He is also receiving a taper to manage BZO W/D. Because of this pt. reports feeling very tired. Pt is interested in [facility] and [facility] received and referral placed. T/W sent message to [facility] to inform them of referral and also of pt's wishes to return to TSS. List of TSS resources given to pt. Pt denies further needs at this time. ACS available PRN during pt's stay.
[2024-09-29] MEDS: Amphetamine Mixed Salts 10 MG TABLET PO (16:47)
[2024-09-29 20:00] VITALS: BP 140/90; PULSE 89; RESP 16; TEMP 36.9; O2SAT 100
[2024-09-30 08:00] VITALS: BP 116/60; PULSE 87; RESP 16; TEMP 36.9; O2SAT 96
[2024-09-30 08:49] VITALS: BP 116/60; PULSE 87
[2024-09-30] MEDS: Amphetamine Mixed Salts 20 MG TABLET PO ×2 (08:49→12:20)
--- NOTE | 2024-09-30 12:35 | P.PNPSI_ITS ---
Subjective Subjective Date of Service: 09/30/24 Reason For Visit: SI with plan Subjective Notes: Conditional Voluntary Interim History: Patient was seen and discussed in rounds today. Records and plans were reviewed. He states that he had a better day with better full day coverage with the Adderall in light of us not having Vyvanse available here. Eating and sleeping adequately. No behavioral issues. He is complaining of hip pain and in the past has taken tramadol which I did not want to order for him and I did ibuprofen 600 mg t.i.d. p.r.n.. Review of Systems Review of Systems Hip pain Yes all other systems are reviewed and are negative Mental Status Exam Mental Status Exam Narrative: In today's visit he is alert, oriented and pleasant. Normal speech. Good eye contact. Affect is appropriate and constricted. No signs of psychosis. No SI. Cognitively is intact. Judgment is intact Diagnostics Vital Signs (24Hr): Vital Signs - 24 hr 09/29/24 20:00 09/30/24 08:00 09/30/24 08:49 Temperature 98.4 F 98.4 F Pulse Rate 89 87 Respiratory Rate 16 16 Blood Pressure 140/90 H 116/60 116/60 Pulse Oximetry 100 96 Oxygen Delivery Method Room Air Room Air 09/30/24 08:49 Temperature Pulse Rate 87 Respiratory Rate Blood Pressure 116/60 Pulse Oximetry Oxygen Delivery Method BMI result Body Mass Index 28.8 Medications Medications Current Medications Acetaminophen (Acetaminophen 325 Mg Tablet) 650 mg PO Q6H PRN PRN Reason: Headache/Pain, Scale 1-10 Last Admin: 09/29/24 17:16 Dose: 650 mg Al Hydroxide/Mg Hydroxide (Magnesium Hydrox/Alum Hydrox 30 Ml Oral.Susp) 30 ml PO Q6H PRN PRN Reason: Heartburn/Nausea Amphetamine/Dextroamphetamine (Amphetamine Mixed Salts 20 Mg Tablet) 20 mg PO BID@0800,1300 [facility] Last Admin: 09/30/24 12:20 Dose: 20 mg Amphetamine/Dextroamphetamine (Amphetamine Mixed Salts 10 Mg Tablet) 10 mg PO 1 600 MARIANN Last Admin: 09/29/24 16:47 Dose: 10 mg Buprenorphine/Naloxone (Buprenorphine/Naloxone 8/2 Mg Film) 1 film SUBLINGUAL BID [facility] Last Admin: 09/30/24 08:48 Dose: 1 film Clonidine HCl (Clonidine Hcl 0.1 Mg Tablet) 0.1 mg PO TID [facility]; Protocol Last Admin: 09/30/24 08:49 Dose: 0.1 mg Cyanocobalamin (Cyanocobalamin (Vitamin B-12) 1,000 Mcg Tablet) 1,000 mcg PO DAILY [facility] Last Admin: 09/30/24 08:49 Dose: 1,000 mcg Docusate Sodium (Docusate Sodium 100 Mg Capsule) 100 mg PO BID [facility] Last Admin: 09/30/24 08:49 Dose: 100 mg Escitalopram Oxalate (Escitalopram Oxalate 20 Mg Tablet) 20 mg PO DAILY [facility] Last Admin: 09/30/24 08:49 Dose: 20 mg Hydroxyzine HCl (Hydroxyzine Hcl 25 Mg Tablet) 25 mg PO Q6H PRN PRN Reason: mild anxiety Last Admin: 09/29/24 19:32 Dose: 25 mg Ibuprofen (Ibuprofen 600 Mg Tablet) 600 mg PO TIDWM PRN PRN Reason: pain moderate Lamotrigine (Lamotrigine 100 Mg Tablet) 100 mg PO DAILY [facility] Last Admin: 09/30/24 08:49 Dose: 100 mg Lorazepam (Lorazepam 1 Mg Tablet) 1 mg PO BID [facility] Stop: 10/01/24 09:00 Last Admin: 09/30/24 08:49 Dose: 1 mg Lorazepam (Lorazepam 0.5 Mg Tablet) 0.5 mg PO BID [facility] Stop: 10/03/24 09:00 Magnesium Hydroxide (Milk Of Magnesia 30 Ml Oral.Susp) 30 ml PO DAILY PRN PRN Reason: Constipation Nicotine Polacrilex (Nicotine Polacrilex 2 Mg Gum) 2 mg BUCCAL Q2H PRN PRN Reason: Nicotine Cravings Last Admin: 09/29/24 20:29 Dose: 2 mg Non-Formulary Medication (Linaclotide [Linzess]) 145 mcg PO DAILY [facility] Non-Formulary Medication (Atomoxetine) 40 mg PO DAILY [facility] Olanzapine (Olanzapine 5 Mg Tablet) 5 mg PO BID PRN PRN Reason: agitation Last Admin: 09/29/24 19:32 Dose: 5 mg Omeprazole (Omeprazole 20 Mg Capsule.Dr) 20 mg PO BID@0630,1630 [facility] Last Admin: 09/30/24 06:44 Dose: 20 mg Ondansetron HCl (Ondansetron Odt 8 Mg Tab.Rapdis) 8 mg TRANSLINGU Q8H PRN PRN Reason: Nausea and Vomiting Last Admin: 09/28/24 14:51 Dose: 8 mg Propranolol HCl (Propranolol Hcl 20 Mg Tablet) 20 mg PO BID [facility]; Protocol Last Admin: 09/30/24 08:49 Dose: 20 mg Quetiapine Fumarate (Quetiapine Fumarate 200 Mg Tablet) 200 mg PO BEDTIME [facility] Last Admin: 09/29/24 21:13 Dose: 200 mg Sucralfate (Sucralfate 1 Gm Tablet) 1 gm PO BID [facility] Last Admin: 09/30/24 08:49 Dose: 1 gm Trazodone HCl (Trazodone Hcl 50 Mg Tablet) 50 mg PO BEDTIME MRX1 PRN PRN Reason: Insomnia Allergies Allergies Allergy/AdvReac Type Severity Reaction Status Date / Time No Known Allergies Allergy Verified 09/22/24 23:07 Assessment & Plan Assessment & Plan (1) MDD (major depressive disorder), recurrent episode, severe: Status: Acute Code(s): F33.2 - Major depressive disorder, recurrent severe without psychotic features (2) PTSD (post-traumatic stress disorder): Status: Acute Code(s): F43.10 - Post-traumatic stress disorder, unspecified (3) Opioid use disorder: Status: Acute Code(s): F11.90 - Opioid use, unspecified, uncomplicated (4) Alcohol use disorder, moderate, dependence: Status: Acute Code(s): F10.20 - Alcohol dependence, uncomplicated (5) Cocaine use disorder, moderate, dependence: Status: Acute Code(s): F14.20 - Cocaine dependence, uncomplicated (6) Benzodiazepine abuse: Status: Acute Code(s): F13.10 - Sedative, hypnotic or anxiolytic abuse, uncomplicated Plan Patient is a 49-year-old male with history of MDD, PTSD, opiate use disorder, cocaine use disorder and alcohol use disorder who presented to ER via ambulance after calling on himself due to suicidal ideation secondary to relapsing on substances. Plan: CV 15 minute safety checks Continue home medications CIWA protocol Referral to outpatient psychiatric providers Referral to substance abuse program Encourage groups Discharge planning 09/27: Continues sleeping most of day. He reports not feeling well d/t withdrawal. CIWA score decreasing. He reports suicidal ideation with no plan. denies HI/VH/AH. Will start Ativan taper tomorrow. Continue current tx plan. 09/28: Continues sleeping most of day. He continues to report not feeling well d/t withdrawal. Placed on Ativan taper; pt declined AM medications. focused on obtaining benzodiazapines. PAULETTE YUSUF. pt stated, I'm laying in bed because I don't feel good . Pt reports he would like to go to a substance abuse program; encouraged to attend groups. denies SI/HI/VH/AH. 09/29: Continue current regimen and plans. Adderall 20 mg b.i.d. and 10 mg at 16:00 09/30: Continue current plans and regimen. Ibuprofen 600 mg t.i.d. p.r.n. Reason for continued inpatient stay Substantial Risk for: med/psych decompensation Time Spent With Patient Time: Total time managing care of this patient today ____ minutes.
[2024-09-30 14:42] VITALS: BP 138/84
[2024-09-30] MEDS: Amphetamine Mixed Salts 10 MG TABLET PO (15:55)
[2024-09-30 19:37] VITALS: BP 118/64; PULSE 84; RESP 18; TEMP 37.1; O2SAT 100
[2024-10-01 07:10] VITALS: BP 118/62; PULSE 58; RESP 14; TEMP 37.1; O2SAT 94
[2024-10-01 08:32] VITALS: BP 113/60; PULSE 63
[2024-10-01] MEDS: Amphetamine Mixed Salts 20 MG TABLET PO ×2 (08:32→12:51)
--- NOTE | 2024-10-01 09:05 | HO.PSYCHPN ---
Subjective Subjective Date of Service: 10/01/24 Reason For Visit: SI with plan Subjective Notes: Conditional Voluntary Interim History: Active on unit. social with peers. attending groups. Patient reports feeling sad because I let my daughter down again . Continues focused on going to program and sobriety. He reports sleeping well last night. Continues on Ativan taper. denies SI/HI/VH/AH. Continue current tx plan. Medication Compliance: Yes Side effects from medications: No Attending Groups: Yes Mental Status Exam Mental Status Exam Narrative: Pt is alert and oriented; behavior is cooperative and calm; dressed in casual attire; mood is described as sad ; eye contact appropriate; Speech is normal rate, volume and not pressured; thought process is organized and goal directed; Thought content is on tx; denies SI/HI/VH/AH. Diagnostics Vital Signs (24Hr): Vital Signs - 24 hr 09/30/24 14:42 09/30/24 19:37 10/01/24 07:10 Temperature 98.8 F 98.7 F Pulse Rate 84 58 Respiratory Rate 18 14 Blood Pressure 138/84 118/64 118/62 Pulse Oximetry 100 94 Oxygen Delivery Method Room Air Room Air 10/01/24 08:32 10/01/24 08:32 Temperature Pulse Rate 63 Respiratory Rate Blood Pressure 113/60 113/60 Pulse Oximetry Oxygen Delivery Method BMI result Body Mass Index 28.8 Medications Medications Current Medications Acetaminophen (Acetaminophen 325 Mg Tablet) 650 mg PO Q6H PRN PRN Reason: Headache/Pain, Scale 1-10 Last Admin: 09/29/24 17:16 Dose: 650 mg Al Hydroxide/Mg Hydroxide (Magnesium Hydrox/Alum Hydrox 30 Ml Oral.Susp) 30 ml PO Q6H PRN PRN Reason: Heartburn/Nausea Amphetamine/Dextroamphetamine (Amphetamine Mixed Salts 20 Mg Tablet) 20 mg PO BID@0800,1300 [facility] Last Admin: 10/01/24 08:32 Dose: 20 mg Amphetamine/Dextroamphetamine (Amphetamine Mixed Salts 10 Mg Tablet) 10 mg PO 1600 [facility] Last Admin: 09/30/24 15:55 Dose: 10 mg Buprenorphine/Naloxone (Buprenorphine/Naloxone 8/2 Mg Film) 1 film SUBLINGUAL BID [facility] Last Admin: 10/01/24 08:31 Dose: 1 film Clonidine HCl (Clonidine Hcl 0.1 Mg Tablet) 0.1 mg PO TID [facility]; Protocol Last Admin: 10/01/24 08:32 Dose: 0.1 mg Cyanocobalamin (Cyanocobalamin (Vitamin B-12) 1,000 Mcg Tablet) 1,000 mcg PO DAILY [facility] Last Admin: 10/01/24 08:32 Dose: 1,000 mcg Docusate Sodium (Docusate Sodium 100 Mg Capsule) 100 mg PO BID [facility] Last Admin: 10/01/24 08:32 Dose: 100 mg Escitalopram Oxalate (Escitalopram Oxalate 20 Mg Tablet) 20 mg PO DAILY [facility] Last Admin: 10/01/24 08:32 Dose: 20 mg Hydroxyzine HCl (Hydroxyzine Hcl 25 Mg Tablet) 25 mg PO Q6H PRN PRN Reason: mild anxiety Last Admin: 09/29/24 19:32 Dose: 25 mg Ibuprofen (Ibuprofen 600 Mg Tablet) 600 mg PO TIDWM PRN PRN Reason: pain moderate Last Admin: 09/30/24 18:10 Dose: 600 mg Lamotrigine (Lamotrigine 100 Mg Tablet) 100 mg PO DAILY [facility] Last Admin: 10/01/24 08:32 Dose: 100 mg Lorazepam (Lorazepam 0.5 Mg Tablet) 0.5 mg PO BID [facility] Stop: 10/03/24 09:00 Magnesium Hydroxide (Milk Of Magnesia 30 Ml Oral.Susp) 30 ml PO DAILY PRN PRN Reason: Constipation Nicotine Polacrilex (Nicotine Polacrilex 2 Mg Gum) 2 mg BUCCAL Q2H PRN PRN Reason: Nicotine Cravings Last Admin: 09/30/24 18:59 Dose: 2 mg Non-Formulary Medication (Linaclotide [Linzess]) 145 mcg PO DAILY [facility] Non-Formulary Medication (Atomoxetine) 40 mg PO DAILY [facility] Olanzapine (Olanzapine 5 Mg Tablet) 5 mg PO BID PRN PRN Reason: agitation Last Admin: 09/30/24 18:11 Dose: 5 mg Omeprazole (Omeprazole 20 Mg Capsule.Dr) 20 mg PO BID@0630,1630 [facility] Last Admin: 10/01/24 08:12 Dose: 20 mg Ondansetron HCl (Ondansetron Odt 8 Mg Tab.Rapdis) 8 mg TRANSLINGU Q8H PRN PRN Reason: Nausea and Vomiting Last Admin: 09/28/24 14:51 Dose: 8 mg Propranolol HCl (Propranolol Hcl 20 Mg Tablet) 20 mg PO BID [facility]; Protocol Last Admin: 10/01/24 08:32 Dose: 20 mg Quetiapine Fumarate (Quetiapine Fumarate 200 Mg Tablet) 200 mg PO BEDTIME [facility] Last Admin: 09/30/24 20:05 Dose: 200 mg Sucralfate (Sucralfate 1 Gm Tablet) 1 gm PO BID [facility] Last Admin: 10/01/24 08:32 Dose: 1 gm Trazodone HCl (Trazodone Hcl 50 Mg Tablet) 50 mg PO BEDTIME MRX1 PRN PRN Reason: Insomnia Allergies Allergies Allergy/AdvReac Type Severity Reaction Status Date / Time No Known Allergies Allergy Verified 09/22/24 23:07 Assessment & Plan Assessment & Plan (1) MDD (major depressive disorder), recurrent episode, severe: Status: Acute Code(s): F33.2 - Major depressive disorder, recurrent severe without psychotic features (2) PTSD (post-traumatic stress disorder): Status: Acute Code(s): F43.10 - Post-traumatic stress disorder, unspecified (3) Opioid use disorder: Status: Acute Code(s): F11.90 - Opioid use, unspecified, uncomplicated (4) Alcohol use disorder, moderate, dependence: Status: Acute Code(s): F10.20 - Alcohol dependence, uncomplicated (5) Cocaine use disorder, moderate, dependence: Status: Acute Code(s): F14.20 - Cocaine dependence, uncomplicated (6) Benzodiazepine abuse: Status: Acute Code(s): F13.10 - Sedative, hypnotic or anxiolytic abuse, uncomplicated Plan Patient is a 49-year-old male with history of MDD, PTSD, opiate use disorder, cocaine use disorder and alcohol use disorder who presented to ER via ambulance after calling on himself due to suicidal ideation secondary to relapsing on substances. Plan: CV 15 minute safety checks Continue home medications CIWA protocol Referral to outpatient psychiatric providers Referral to substance abuse program Encourage groups Discharge planning 09/27: Continues sleeping most of day. He reports not feeling well d/t withdrawal. CIWA score decreasing. He reports suicidal ideation with no plan. denies HI/VH/AH. Will start Ativan taper tomorrow. Continue current tx plan. 09/28: Continues sleeping most of day. He continues to report not feeling well d/t withdrawal. Placed on Ativan taper; pt declined AM medications. focused on obtaining benzodiazapines. DC CIWA. pt stated, I'm laying in bed because I don't feel good . Pt reports he would like to go to a substance abuse program; encouraged to attend groups. denies SI/HI/VH/AH. 09/29: Continue current regimen and plans. Adderall 20 mg b.i.d. and 10 mg at 16:00 09/30: Continue current plans and regimen. Ibuprofen 600 mg t.i.d. p.r.n. 10/01: Active on unit. social with peers. attending groups. Patient reports feeling sad because I let my daughter down again . Continues focused on going to program and sobriety. He reports sleeping well last night. Continues on Ativan taper. denies SI/HI/VH/AH. Continue current tx plan. Patient educated on: diagnosis, medication risk/benefits and therapeutic strategies Reason for continued inpatient stay Substantial Risk for: med/psych decompensation Time Spent With Patient Time: Total time managing care of this patient today _20___ minutes.
[2024-10-01 15:37] VITALS: BP 166/92
[2024-10-01] MEDS: Amphetamine Mixed Salts 10 MG TABLET PO (15:37)
[2024-10-01 20:05] VITALS: BP 133/69
[2024-10-01 20:07] VITALS: BP 133/69; PULSE 78
[2024-10-01 20:42] VITALS: BP 133/69; PULSE 78; RESP 16; TEMP 36.9; O2SAT 96
--- NOTE | 2024-10-02 06:37 | PC.NURSE ---
pt refused omeprazole 0630, pt requests to take it with the other morning meds.
[2024-10-02 07:41] VITALS: BP 138/64; PULSE 53; RESP 18; TEMP 36.4; O2SAT 96
[2024-10-02] MEDS: Amphetamine Mixed Salts 20 MG TABLET PO ×2 (08:22→13:03)
--- NOTE | 2024-10-02 09:31 | P.PNPSI_ITS ---
Subjective Subjective Date of Service: 10/02/24 Reason For Visit: SI with plan Subjective Notes: Conditional Voluntary Interim History: Patient reports feeling alright today; focused on sobriety. pt is focused on being accepted into substance abuse program. denies SI/HI/VH/AH. DC Ativan. Continue current tx plan. Medication Compliance: Yes Side effects from medications: No Attending Groups: Yes Mental Status Exam Mental Status Exam Narrative: Pt is alert and oriented; behavior is cooperative and calm; dressed in casual attire; mood is described as alright ; eye contact appropriate; Speech is normal rate, volume and not pressured; thought process is organized and goal directed; Thought content is on tx; denies SI/HI/VH/AH. Diagnostics Vital Signs (24Hr): Vital Signs - 24 hr 10/01/24 15:37 10/01/24 20:05 10/01/24 20:07 Temperature Pulse Rate 78 Respiratory Rate Blood Pressure 166/92 H 133/69 133/69 Pulse Oximetry Oxygen Delivery Method 10/01/24 20:42 10/02/24 07:41 Temperature 98.4 F 97.6 F Pulse Rate 78 53 Respiratory Rate 16 18 Blood Pressure 133/69 138/64 Pulse Oximetry 96 96 Oxygen Delivery Method Room Air Room Air BMI result Body Mass Index 28.8 Medications Medications Current Medications Acetaminophen (Acetaminophen 325 Mg Tablet) 650 mg PO Q6H PRN PRN Reason: Headache/Pain, Scale 1-10 Last Admin: 10/01/24 20:06 Dose: 650 mg Al Hydroxide/Mg Hydroxide (Magnesium Hydrox/Alum Hydrox 30 Ml Oral.Susp) 30 ml PO Q6H PRN PRN Reason: Heartburn/Nausea Amphetamine/Dextroamphetamine (Amphetamine Mixed Salts 20 Mg Tablet) 20 mg PO BID@0800,1300 [facility] Last Admin: 10/02/24 08:22 Dose: 20 mg Amphetamine/Dextroamphetamine (Amphetamine Mixed Salts 10 Mg Tablet) 10 mg PO 1600 [facility] Last Admin: 10/01/24 15:37 Dose: 10 mg Buprenorphine/Naloxone (Buprenorphine/Naloxone 8/2 Mg Film) 1 film SUBLINGUAL BID [facility] Last Admin: 10/02/24 08:22 Dose: 1 film Clonidine HCl (Clonidine Hcl 0.1 Mg Tablet) 0.1 mg PO TID [facility]; Protocol Last Admin: 10/02/24 08:22 Dose: 0.1 mg Cyanocobalamin (Cyanocobalamin (Vitamin B-12) 1,000 Mcg Tablet) 1,000 mcg PO DAILY [facility] Last Admin: 10/02/24 08:22 Dose: 1,000 mcg Docusate Sodium (Docusate Sodium 100 Mg Capsule) 100 mg PO BID [facility] Last Admin: 10/02/24 08:22 Dose: 100 mg Escitalopram Oxalate (Escitalopram Oxalate 20 Mg Tablet) 20 mg PO DAILY [facility] Last Admin: 10/02/24 08:22 Dose: 20 mg Hydroxyzine HCl (Hydroxyzine Hcl 25 Mg Tablet) 25 mg PO Q6H PRN PRN Reason: mild anxiety Last Admin: 10/01/24 12:51 Dose: 25 mg Ibuprofen (Ibuprofen 600 Mg Tablet) 600 mg PO TIDWM PRN PRN Reason: pain moderate Last Admin: 10/01/24 16:02 Dose: 600 mg Lamotrigine (Lamotrigine 100 Mg Tablet) 100 mg PO DAILY [facility] Last Admin: 10/02/24 08:21 Dose: 100 mg Lorazepam (Lorazepam 0.5 Mg Tablet) 0.5 mg PO BID [facility] Stop: 10/03/24 09:00 Last Admin: 10/02/24 08:22 Dose: 0.5 mg Magnesium Hydroxide (Milk Of Magnesia 30 Ml Oral.Susp) 30 ml PO DAILY PRN PRN Reason: Constipation Nicotine Polacrilex (Nicotine Polacrilex 2 Mg Gum) 2 mg BUCCAL Q2H PRN PRN Reason: Nicotine Cravings Last Admin: 10/01/24 18:43 Dose: 2 mg Non-Formulary Medication (Linaclotide [Linzess]) 145 mcg PO DAILY [facility] Non-Formulary Medication (Atomoxetine) 40 mg PO DAILY [facility] Olanzapine (Olanzapine 5 Mg Tablet) 5 mg PO BID PRN PRN Reason: agitation Last Admin: 09/30/24 18:11 Dose: 5 mg Omeprazole (Omeprazole 20 Mg Capsule.Dr) 20 mg PO BID@0630,1630 [facility] Last Admin: 10/02/24 08:22 Dose: 20 mg Ondansetron HCl (Ondansetron Odt 8 Mg Tab.Rapdis) 8 mg TRANSLINGU Q8H PRN PRN Reason: Nausea and Vomiting Last Admin: 09/28/24 14:51 Dose: 8 mg Propranolol HCl (Propranolol Hcl 20 Mg Tablet) 20 mg PO BID [facility]; Protocol Last Admin: 10/02/24 08:21 Dose: 20 mg Quetiapine Fumarate (Quetiapine Fumarate 200 Mg Tablet) 200 mg PO BEDTIME [facility] Last Admin: 10/01/24 20:06 Dose: 200 mg Sucralfate (Sucralfate 1 Gm Tablet) 1 gm PO BID [facility] Last Admin: 10/02/24 09:05 Dose: Not Given Trazodone HCl (Trazodone Hcl 50 Mg Tablet) 50 mg PO BEDTIME MRX1 PRN PRN Reason: Insomnia Allergies Allergies Allergy/AdvReac Type Severity Reaction Status Date / Time No Known Allergies Allergy Verified 09/22/24 23:07 Assessment & Plan Assessment & Plan (1) MDD (major depressive disorder), recurrent episode, severe: Status: Acute Code(s): F33.2 - Major depressive disorder, recurrent severe without psychotic features (2) PTSD (post-traumatic stress disorder): Status: Acute Code(s): F43.10 - Post-traumatic stress disorder, unspecified (3) Opioid use disorder: Status: Acute Code(s): F11.90 - Opioid use, unspecified, uncomplicated (4) Alcohol use disorder, moderate, dependence: Status: Acute Code(s): F10.20 - Alcohol dependence, uncomplicated (5) Cocaine use disorder, moderate, dependence: Status: Acute Code(s): F14.20 - Cocaine dependence, uncomplicated (6) Benzodiazepine abuse: Status: Acute Code(s): F13.10 - Sedative, hypnotic or anxiolytic abuse, uncomplicated Plan Patient is a 49-year-old male with history of MDD, PTSD, opiate use disorder, cocaine use disorder and alcohol use disorder who presented to ER via ambulance after calling on himself due to suicidal ideation secondary to relapsing on substances. Plan: CV 15 minute safety checks Continue home medications CIWA protocol Referral to outpatient psychiatric providers Referral to substance abuse program Encourage groups Discharge planning 09/27: Continues sleeping most of day. He reports not feeling well d/t withdrawal. CIWA score decreasing. He reports suicidal ideation with no plan. denies HI/VH/AH. Will start Ativan taper tomorrow. Continue current tx plan. 09/28: Continues sleeping most of day. He continues to report not feeling well d/t withdrawal. Placed on Ativan taper; pt declined AM medications. focused on obtaining benzodiazapines. DC CIWA. pt stated, I'm laying in bed because I don't feel good . Pt reports he would like to go to a substance abuse program; encouraged to attend groups. denies SI/HI/VH/AH. 09/29: Continue current regimen and plans. Adderall 20 mg b.i.d. and 10 mg at 16:00 09/30: Continue current plans and regimen. Ibuprofen 600 mg t.i.d. p.r.n. 10/01: Active on unit. social with peers. attending groups. Patient reports feeling sad because I let my daughter down again . Continues focused on going to program and sobriety. He reports sleeping well last night. Continues on Ativan taper. denies SI/HI/VH/AH. Continue current tx plan. 10/02: Patient reports feeling alright today; focused on sobriety. pt is focused on being accepted into substance abuse program. denies SI/HI/VH/AH. DC Ativan. Continue current tx plan. Patient educated on: diagnosis, medication risk/benefits and therapeutic strategies Reason for continued inpatient stay Substantial Risk for: med/psych decompensation Time Spent With Patient Time: Total time managing care of this patient today _20___ minutes.
[2024-10-02] MEDS: Amphetamine Mixed Salts 10 MG TABLET PO (15:43)
[2024-10-02 20:30] VITALS: BP 128/73; PULSE 66; RESP 18; TEMP 37; O2SAT 97
--- NOTE | 2024-10-03 06:27 | PC.NURSE ---
Abiodun requested to take his omeprazole with his other am medications. Medication was not given.
[2024-10-03 08:49] VITALS: BP 106/55; PULSE 60; RESP 16; TEMP 36.9; O2SAT 94
[2024-10-03] MEDS: Amphetamine Mixed Salts 20 MG TABLET PO ×2 (08:54→13:07)
--- NOTE | 2024-10-03 09:38 | P.PNPSI_ITS ---
Subjective Subjective Date of Service: 10/03/24 Reason For Visit: SI with plan Subjective Notes: Conditional Voluntary Interim History: Patient reports feeling good today; pt had phone intake with [facility] and was accepted for tomorrow. Patient reports he is looking forward to going to program. denies SI/HI/VH/AH. Plans to discharge to [facility] tomorrow and follow up with outpatient providers. Medication Compliance: Yes Side effects from medications: No Attending Groups: Yes Mental Status Exam Mental Status Exam Narrative: Pt is alert and oriented; behavior is cooperative and calm; dressed in casual attire; mood is described as good ; eye contact appropriate; Speech is normal rate, volume and not pressured; thought process is organized and goal directed; Thought content is on tx; denies SI/HI/VH/AH. Diagnostics Vital Signs (24Hr): Vital Signs - 24 hr 10/02/24 20:30 10/03/24 08:49 Temperature 98.6 F 98.5 F Pulse Rate 66 60 Respiratory Rate 18 16 Blood Pressure 128/73 106/55 L Pulse Oximetry 97 94 Oxygen Delivery Method Room Air Room Air BMI result Body Mass Index 28.8 Medications Medications Current Medications Acetaminophen (Acetaminophen 325 Mg Tablet) 975 mg PO Q6H PRN PRN Reason: Headache/Pain, Scale 1-10 Al Hydroxide/Mg Hydroxide (Magnesium Hydrox/Alum Hydrox 30 Ml Oral.Susp) 30 ml PO Q6H PRN PRN Reason: Heartburn/Nausea Amphetamine/Dextroamphetamine (Amphetamine Mixed Salts 20 Mg Tablet) 20 mg PO BID@0800,1300 [facility] Last Admin: 10/03/24 08:54 Dose: 20 mg Amphetamine/Dextroamphetamine (Amphetamine Mixed Salts 10 Mg Tablet) 10 mg PO 1600 [facility] Last Admin: 10/02/24 15:43 Dose: 10 mg Buprenorphine/Naloxone (Buprenorphine/Naloxone 8/2 Mg Film) 1 film SUBLINGUAL BID [facility] Last Admin: 10/03/24 08:55 Dose: 1 film Clonidine HCl (Clonidine Hcl 0.1 Mg Tablet) 0.1 mg PO TID [facility]; Protocol Last Admin: 10/03/24 08:52 Dose: 0.1 mg Cyanocobalamin (Cyanocobalamin (Vitamin B-12) 1,000 Mcg Tablet) 1,000 mcg PO DAILY [facility] Last Admin: 10/03/24 08:54 Dose: 1,000 mcg Docusate Sodium (Docusate Sodium 100 Mg Capsule) 100 mg PO BID [facility] Last Admin: 10/03/24 08:55 Dose: 100 mg Escitalopram Oxalate (Escitalopram Oxalate 20 Mg Tablet) 20 mg PO DAILY [facility] Last Admin: 10/03/24 08:55 Dose: 20 mg Hydroxyzine HCl (Hydroxyzine Hcl 25 Mg Tablet) 25 mg PO Q6H PRN PRN Reason: mild anxiety Last Admin: 10/01/24 12:51 Dose: 25 mg Ibuprofen (Ibuprofen 800 Mg Tablet) 800 mg PO Q8H PRN PRN Reason: pain moderate Lamotrigine (Lamotrigine 100 Mg Tablet) 100 mg PO DAILY [facility] Last Admin: 10/03/24 08:55 Dose: 100 mg Magnesium Hydroxide (Milk Of Magnesia 30 Ml Oral.Susp) 30 ml PO DAILY PRN PRN Reason: Constipation Nicotine Polacrilex (Nicotine Polacrilex 2 Mg Gum) 2 mg BUCCAL Q2H PRN PRN Reason: Nicotine Cravings Last Admin: 10/02/24 17:11 Dose: 2 mg Non-Formulary Medication (Linaclotide [Linzess]) 145 mcg PO DAILY [facility] Non-Formulary Medication (Atomoxetine) 40 mg PO DAILY [facility] Olanzapine (Olanzapine 5 Mg Tablet) 5 mg PO BID PRN PRN Reason: agitation Last Admin: 09/30/24 18:11 Dose: 5 mg Omeprazole (Omeprazole 20 Mg Capsule.Dr) 20 mg PO BID@0630,1630 [facility] Last Admin: 10/03/24 08:52 Dose: 20 mg Ondansetron HCl (Ondansetron Odt 8 Mg Tab.Rapdis) 8 mg TRANSLINGU Q8H PRN PRN Reason: Nausea and Vomiting Last Admin: 09/28/24 14:51 Dose: 8 mg Propranolol HCl (Propranolol Hcl 20 Mg Tablet) 20 mg PO BID [facility]; Protocol Last Admin: 10/03/24 08:54 Dose: 20 mg Quetiapine Fumarate (Quetiapine Fumarate 200 Mg Tablet) 200 mg PO BEDTIME [facility] Last Admin: 10/02/24 20:34 Dose: 200 mg Sucralfate (Sucralfate 1 Gm Tablet) 1 gm PO BID [facility] Last Admin: 10/03/24 08:54 Dose: 1 gm Trazodone HCl (Trazodone Hcl 50 Mg Tablet) 50 mg PO BEDTIME MRX1 PRN PRN Reason: Insomnia Allergies Allergies Allergy/AdvReac Type Severity Reaction Status Date / Time No Known Allergies Allergy Verified 09/22/24 23:07 Assessment & Plan Assessment & Plan (1) MDD (major depressive disorder), recurrent episode, severe: Status: Acute Code(s): F33.2 - Major depressive disorder, recurrent severe without psychotic features (2) PTSD (post-traumatic stress disorder): Status: Acute Code(s): F43.10 - Post-traumatic stress disorder, unspecified (3) Opioid use disorder: Status: Acute Code(s): F11.90 - Opioid use, unspecified, uncomplicated (4) Alcohol use disorder, moderate, dependence: Status: Acute Code(s): F10.20 - Alcohol dependence, uncomplicated (5) Cocaine use disorder, moderate, dependence: Status: Acute Code(s): F14.20 - Cocaine dependence, uncomplicated (6) Benzodiazepine abuse: Status: Acute Code(s): F13.10 - Sedative, hypnotic or anxiolytic abuse, uncomplicated Plan Patient is a 49-year-old male with history of MDD, PTSD, opiate use disorder, cocaine use disorder and alcohol use disorder who presented to ER via ambulance after calling on himself due to suicidal ideation secondary to relapsing on substances. Plan: CV 15 minute safety checks Continue home medications CIWA protocol Referral to outpatient psychiatric providers Referral to substance abuse program Encourage groups Discharge planning 09/27: Continues sleeping most of day. He reports not feeling well d/t withdrawal. CIWA score decreasing. He reports suicidal ideation with no plan. denies HI/VH/AH. Will start Ativan taper tomorrow. Continue current tx plan. 09/28: Continues sleeping most of day. He continues to report not feeling well d/t withdrawal. Placed on Ativan taper; pt declined AM medications. focused on obtaining benzodiazapines. DC CIWA. pt stated, I'm laying in bed because I don't feel good . Pt reports he would like to go to a substance abuse program; encouraged to attend groups. denies SI/HI/VH/AH. 09/29: Continue current regimen and plans. Adderall 20 mg b.i.d. and 10 mg at 16:00 09/30: Continue current plans and regimen. Ibuprofen 600 mg t.i.d. p.r.n. 10/01: Active on unit. social with peers. attending groups. Patient reports feeling sad because I let my daughter down again . Continues focused on going to program and sobriety. He reports sleeping well last night. Continues on Ativan taper. denies SI/HI/VH/AH. Continue current tx plan. 10/02: Patient reports feeling alright today; focused on sobriety. pt is focused on being accepted into substance abuse program. denies SI/HI/VH/AH. DC Ativan. Continue current tx plan. 10/03: Patient reports feeling good today; pt had phone intake with [facility] and was accepted for tomorrow. Patient reports he is looking forward to going to program. denies SI/HI/VH/AH. Plans to discharge to [facility] tomorrow and follow up with outpatient providers. Patient educated on: diagnosis and medication risk/benefits Reason for continued inpatient stay Substantial Risk for: stable for discharge Time Spent With Patient Time: Total time managing care of this patient today _20___ minutes.
[2024-10-03 15:09] VITALS: BP 122/66; PULSE 68; RESP 16; TEMP 37; O2SAT 97
[2024-10-03] MEDS: Amphetamine Mixed Salts 10 MG TABLET PO (16:14)
[2024-10-03 20:00] VITALS: BP 131/74; PULSE 63; RESP 16; TEMP 36.9; O2SAT 98
[2024-10-03 20:01] VITALS: BP 131/74; PULSE 63
--- NOTE | 2024-10-04 05:22 | PC.NURSE ---
per previous RN, patient does not want to be woken for prilosec.
[2024-10-04 07:41] VITALS: BP 118/64; PULSE 52; RESP 18; TEMP 36.7; O2SAT 98
--- NOTE | 2024-10-04 09:01 | P.DS_ITS ---
DS: Providers Provider Date of Service: 10/04/24 Date of admission: 09/25/24 19:14 Date of discharge: 10/04/24 Primary care physician: Unknown Physician Admitting clinician: Deanne Real Attending physician on admission: Preston Mock Consults: 09/26/24 03:05 Addiction Medicine Provider Routine Consulting Provider: Addiction Covering Reason for consultation: patient's daily use of ETOH and cocaine/fentanyl Has provider been notified: No Attending physician on discharge: Preston Mock Discharging clinician: Deanne Real DS: Diagnosis Discharge Diagnosis (1) MDD (major depressive disorder), recurrent episode, severe: Status: Acute (2) PTSD (post-traumatic stress disorder): Status: Acute (3) Opioid use disorder: Status: Acute (4) Alcohol use disorder, moderate, dependence: Status: Acute (5) Cocaine use disorder, moderate, dependence: Status: Acute (6) Benzodiazepine abuse: Status: Acute DS: Medications Discharge Medications Home Medications: Previous Rx's ?Medication ?Instructions ?Recorded buprenorphine 8 mg-naloxone 2 mg 1 film sublingual BID 7 days #14 ea 10/03/24 sublingual film (Suboxone) clonidine HCl 0.1 mg tablet 0.1 mg PO TID 30 days #90 tabs 10/03/24 cyanocobalamin (vitamin B-12) 1,000 mcg PO DAILY 30 da ys #30 tabs 10/03/24 1,000 mcg tablet docusate sodium 100 mg capsule 100 mg PO BID 30 days # 60 caps 10/03/24 escitalopram oxalate 20 mg tablet 20 mg PO DAILY 30 da ys #30 tabs 10/03/24 lamotrigine 100 mg tablet 100 mg PO DAILY 30 days #30 tabs 10/03/24 lisdexamfetamine 40 mg capsule 40 mg PO DAILY 30 days #30 caps 10/03/24 (Vyvanse) nicotine (polacrilex) 4 mg buccal 4 mg PO Q2H 30 days #72 ea 10/03/24 lozenge omeprazole 20 mg capsule,delayed 20 mg PO BID 30 days #60 caps 10/03/24 release propranolol 20 mg tablet 20 mg PO BID 30 days #60 tab s 10/03/24 quetiapine 200 mg tablet 200 mg PO BEDTIME 30 days #3 0 tabs 10/03/24 sucralfate 1 gram tablet 1 g PO BID 30 days #60 tabs 10/03/24 Mental Status Exam Mental Status Exam Narrative: Pt is alert and oriented; behavior is cooperative and calm; dressed in casual attire; mood is described as good ; eye contact appropriate; Speech is normal rate, volume and not pressured; thought process is organized; Thought content is on tx; denies SI/HI/VH/AH. DS: Summary Hospital Course Hospital Course: Patient is a 49-year-old male with history of MDD, PTSD, opiate use disorder, cocaine use disorder and alcohol use disorder who presented to ER via ambulance after calling on himself due to suicidal ideation secondary to relapsing on substances. Per crisis report, patient was discharged from on 05/29/2024 on a section 35. Patient has a history of polysubstance use and multiple suicide attempts. Patient reports following the section 35 treatment he went to a [facility] for a total of 4 months of recovery and left the program 2 weeks ago. Patient stated, like an idiot, I walked out . Patient reported receiving a check for $5000 which influenced him and now regrets his decision. He reports for the last 2 weeks he has been using drugs and alcohol daily and becoming increasingly depressed and hopeless. Patient stated, I deserve this and everything else that happened to me . Patient reports he had some scissors which he intended to use to commit suicide but was impaired and fell down a hill and lost this the scissors. Patient reports poor sleep and appetite for the last 2 weeks. He reports since the of his mother earlier this year, he has felt more lost and alone. History of multiple inpatient psychiatric hospitalizations. During admission assessment, patient presents alert and oriented x3. Calm and cooperative. Drowsy throughout assessment. Closing eyes at times. Difficult to understand due to low and mumbled speech at times. Patient reports feeling depressed and suicidal; patient stated, I'm a scum bag and junkie. I was sober for 5 months and then relapsed. I'm hoping to get sober again . Patient reports he does not recall how long he has not been medication compliant. Patient reports he has been drinking 2 quarts of alcohol daily and using 10-20 Klonopin daily, along with 5 bundles of IV heroin. Patient reports he does not have outpatient psychiatric providers at this time. Plan: CV 15 minute safety checks Continue home medications CIWA protocol Referral to outpatient psychiatric providers Referral to substance abuse program Encourage groups Discharge planning Continues sleeping most of day. He reports not feeling well d/t withdrawal. CIWA score decreasing. He reports suicidal ideation with no plan. denies HI/VH/AH. Will start Ativan taper tomorrow. Continue current tx plan. Continues sleeping most of day. He continues to report not feeling well d/t withdrawal. Placed on Ativan taper; pt declined AM medications. focused on obt aining benzodiazapines. DC CIWA. pt stated, I'm laying in bed because I don't feel good . Pt reports he would like to go to a substance abuse program; encouraged to attend groups. denies SI/HI/VH/AH. Adderall 20 mg b.i.d. and 10 mg at 16:00 Ibuprofen 600 mg t.i.d. p.r.n. Active on unit. social with peers. attending groups. Patient reports feeling sad because I let my daughter down again . Continues focused on going to program and sobriety. He reports sleeping well last night. Continues on Ativan taper. denies SI/HI/VH/AH. Continue current tx plan. Patient reports feeling alright today; focused on sobriety. pt is focused on being accepted into substance abuse program. denies SI/HI/VH/AH. DC Ativan. Continue current tx plan. Patient reports feeling good today; pt had phone intake with [facility] and was accepted for tomorrow. Patient reports he is looking forward to going to program. denies SI/HI/VH/AH. Plans to discharge to [facility] tomorrow and follow up with outpatient providers. Status at Discharge Cognitive/behavioral status at discharge: Patient has insight and demonstrates good judgment in terms of wanting to pursue treatment. Patient has a safety plan that includes presenting to the closest ER or calling 911 if feeling unsafe. Functional status at discharge: independent ambulation Overall status at discharge: patient is back to baseline Time Spent with Patient Time attestation: Total time managing care of this patient today _20___ minutes. Time spent: Less than 30 minutes Discharge Plan Discharge Anticipated Discharge Date/Time: 10/04/24 11:00 Patient Disposition: Home, Self-Care Discharge Diagnosis: MDD, PTSD, opioid use d/o, cocaine use d/o, alcohol use d/o, benzodiazepine abuse Referrals: Physician,Unknown J [Primary Care Provider, Medical] - 1 Week Discharge Medications: Continued clonidine HCl 0.1 mg tablet 0.1 mg PO TID 30 Days Qty: 90 0RF sucralfate 1 gram tablet 1 g PO BID 30 Days Qty: 60 0RF quetiapine 200 mg tablet 200 mg PO BEDTIME 30 Days Qty: 30 0RF cyanocobalamin (vitamin B-12) 1,000 mcg tablet 1,000 mcg PO DAILY 30 Days Qty: 30 0RF docusate sodium 100 mg capsule 100 mg PO BID 30 Days Qty: 60 0RF omeprazole 20 mg capsule,delayed release(DR/EC) 20 mg PO BID 30 Days Qty: 60 0RF propranolol 20 mg tablet 20 mg PO BID 30 Days Qty: 60 0RF lamotrigine 100 mg tablet 100 mg PO DAILY 30 Days Qty: 30 0RF escitalopram oxalate 20 mg Tablet 20 mg PO DAILY 30 Days Qty: 30 0RF nicotine (polacrilex) 4 mg lozenge 4 mg PO Q2H 30 Days Qty: 72 0RF lisdexamfetamine [Vyvanse] 40 mg capsule 40 mg PO DAILY 30 Days Qty: 30 0RF buprenorphine-naloxone [Suboxone] 8-2 mg film 1 film sublingual BID 7 Days Qty: 14 2RF Discontinued omeprazole 20 mg capsule,delayed release(DR/EC) 20 mg PO BID Tab-A-See Multivitamin w-iron 18-400 mg-mcg tablet 1 tab PO DAILY multivitamin [Daily-See] Tablet 1 tab PO DAILY Qty: 0 0RF nicotine (polacrilex) 2 mg Gum 4 mg buccal Q2H PRN (Reason: Nicotine Cravings) Qty: 0 0RF dextroamphetamine-amphetamine 20 mg Tablet 20 mg PO 1400,1700 Qty: 0 0RF Rx Instructions: Partial Fill upon patient request. thiamine mononitrate (vit B1) 100 mg Tablet 100 mg PO DAILY Qty: 0 0RF diphenhydramine HCl [Banophen] 50 mg capsule 50 mg PO BEDTIME folic acid 1 mg tablet 1 mg PO DAILY atomoxetine 40 mg capsule 40 mg PO DAILY Linzess 145 mcg capsule 145 mcg PO DAILY baclofen 5 mg tablet 5 mg PO TID PRN (Reason: muscle spasms) Discharge Orders: Discharge Order (Routine); Ordered 10/04/24 Ordered By: Deanne Real Diet: Regular diet Activity on Discharge: As tolerated Stand Alone Forms: Patient Portal Discharge page, Community Support Print Language: Tunisian Care Plan Goals: Maintain mood and safe behaviors Take medications as prescribed Continue to pursue sobriety Practice coping skills Continue with outpatient providers and reach out to them as needed Health Concerns: Mood stability and behaviors Sobriety Plan of Treatment: Follow up with your PCP, psychiatric provider and other outpatient providers regarding above concerns Take medications as prescribed Assessment: Patient has insight and demonstrates good judgment in terms of wanting to pursue treatment. Patient has a safety plan that includes presenting to the closest ER or calling 911 if feeling unsafe.
[2024-10-04 09:11] VITALS: BP 103/51; PULSE 60; RESP 16; TEMP 36.6; O2SAT 96
[2024-10-04] MEDS: Amphetamine Mixed Salts 20 MG TABLET PO ×2 (09:14→12:10)
[2024-10-04] MEDS: Naloxone HCl Nasal TAKE HOME 4 MG SPRAY 8 MG NOSTRILALT (09:16)
== END 2024-10-04 12:25 | disposition home or self-care (01) | DRG 751 ==
PROVIDERS: Admitting Provider Nurse Practitioner Psychiatric/Mental Health; Responsible Provider Registered Nurse; Visit Provider Psychiatry & Neurology Psychiatry
DX: F33.2 Major depressive disorder, recurrent severe without psychotic features (principal); F10.20 Alcohol dependence, uncomplicated; F11.20 Opioid dependence, uncomplicated; F43.10 Post-traumatic stress disorder, unspecified; F14.20 Cocaine dependence, uncomplicated; F13.10 Sedative, hypnotic or anxiolytic abuse, uncomplicated; Z79.899 Other long term (current) drug therapy

== ENCOUNTER → 2024-09-25 19:14 | Outpatient (BNV) | payer OTHER, SELFPAY | PROVIDERS: Admitting Provider Nurse Practitioner Psychiatric/Mental Health; Responsible Provider Registered Nurse; Visit Provider Registered Nurse | DX: F33.2 Major depressive disorder, recurrent severe without psychotic features (principal); F43.10 Post-traumatic stress disorder, unspecified; F11.90 Opioid use, unspecified, uncomplicated; F10.20 Alcohol dependence, uncomplicated; F14.20 Cocaine dependence, uncomplicated; F13.10 Sedative, hypnotic or anxiolytic abuse, uncomplicated | CPT/HCPCS: 90792 ==